=== PATIENT | female | born 1940 | race Caucasian/White ===

== ENCOUNTER 2022-06-15 18:06 | Inpatient (IN) | payer OTHER, BC ==
--- OUTSIDE RECORDS SUMMARY | 2022-06-15 18:10 | XMS REPORT | Clinical Summary ---
:1940 Author Organization [facility] MD [facility] Address [address] [place] [id number] Care Team Providers Name Role Phone Unavailable Primary Care Provider Unavailable Allergies Not on File Medications Not on file Active Problems Not on file Immunizations Name Administration Dates Next Due Pfizer SARS-CoV-2 Vaccination (Purple Cap) 07/04/2020, 11/2020 Social History Tobacco Use Types Packs/Day Years Used Date Smoking Tobacco: Never Assessed Sex Assigned at Date Recorded Not on file Last Filed Vital Signs Not on file Plan of Treatment Health Maintenance Due Date Last Done Comments COVID-19 Vaccination (3 - Booster for 08/29/2020 07/04/2020 , 06/13/2020 Pfizer series) Results Not on fileafter 06/15/2021 Insurance Payer Benefit Plan / Subscriber ID Effective Dates Phone Addre ss Type Group MEDICARE MEDICARE PART [id number] 2005-[place] [phone] TIARA Medicare A AND B t 2 SOLUTIONS [address] [facility] [place] [id number]
--- OUTSIDE RECORDS SUMMARY | 2022-06-15 18:14 | XMS REPORT | Continuity of Care Document ---
:1940 Author Organization [facility] t Address [address] [place] [place] [address] Care Team Providers Name Role Phone Carson Rudolph MD Primary Care Physician [id number] Attending Clinician Unavailable Bert Hall Attending Clinician Unavailable Noa Segura Attending Clinician Unavailable MAXIMINO CRUZ Attending Clinician Unavailable Maximino Cruz Attending Clinician MICKI MANJARREZ Attending Clinician Unavailable Micki Manjarrez Attending Clinician Brandon Saunders Attending Clinician Paco Tuttle Attending Clinician PACO TUTTLE Attending Clinician Unavailable Jennyfer Feliciano Attending Clinician JENNYFER FELICIANO Attending Clinician Unavailable Carson Rudolph MD Attending Clinician QUAN CABRERA Attending Clinician Unavailable Quan Cabrera Attending Clinician Ruthann Coronado Attending Clinician RUTHANN CORONADO Attending Clinician Unavailable CARSON RUDOLPH Attending Clinician Unavailable Carson Rudolph Attending Clinician [id number] Admitting Clinician Unavailable ANTHONYJENNIFFER IRELANDA Admitting Clinician Unavailable Anthony Maximino Admitting Clinician AHMED BRANDON Admitting Clinician Unavailable Ahzack Brandon Admitting Clinician TOMAS RIZVI BHAILALBH Admitting Clinician Unavailable Tomas Rizvi Bhailalgaleai Admitting Clinician Payers Payer Name Policy Type Policy Number Effective Date Expiration Date S [facility] [place] A [id number] 2004 2024 AND B 00:00:00 00:00:00 MCR MCR [id number] BCTI BCTI [id number] BCBS [id number] 2021 2022 Pulse 00:00:00 00:00:00 Problems Condition Condition Condition Status Onset Resolution Last Treating Co mments Source Name Details Category Date Date Treatment Clinician Date SUBACUTE SUBACUTE Diagnosis Active 2021-052022-02-17 Anastasia STROKE STROKE 0 21:55:00 l Active 00:00: Daniel 02/12/[address] [place] [address], [place] CVA CVA Diagnosis Active 2021-052022-03-15 Mem oria Active 0 21:55:00 l 02/12/2022 00:00: Quentin jack 00 [facility] STROKE STROKE Diagnosis Active 2021-052022-02-22 M emoria LIKE LIKE 0 21:52:00 l SYMPTOMS SYMPTOMS 00:00: Quentin jack Active 00 02/11/2022 [facility] FALL FALL Diagnosis Active 2021-052022-02-13 Mem oria Active 0 13:04:00 l 02/08/2022 00:00: Quentin jack 00 [facility] ACUTE CVA ACUTE CVA Diagnosis Active 2021-05-07 Memoria Active 05-07 21:58:00 l 05/07/2021 00:00: Quentin jack [address] ACUTE ACUTE Diagnosis Active 2021-05-18 Mem oria CEREBROVAS CEREBROVAS 05-07 21:46:00 l CULAR CULAR 00:00: Daniel ACCIDENT ACCIDENT 00 Active 05/07/2021 [facility] DIZZINESS, DIZZINESS Diagnosis Active 2021-06-20 Memoria VOMITING , VOMITING 05-07 13:44:00 l Active 00:00: Daniel 05/07/[address] [place] [address] CKD CKD Disease Active [facility] (chronic (chronic 3-12 [facility] kidney kidney 00:00: Medical disease) disease) 00 Center stage 3, stage 3, GFR 30-59 GFR 30-59 ml/min ml/min Lumbar Lumbar Disease Active Overview: [facility] radiculopa radiculopa 3-12 [facility] thy thy 00:00: g of this Medical note Center might be different from the original. PT for back pain, [place] [employer]. Cannot leave home due to care for , making her home bound. Impaired Impaired Disease [facility] glucose glucose 12[facility] tolerance tolerance 00:00: Medi elena 00 Center Paroxysmal Paroxysmal Disease Active Overview : [facility] atrial atrial 12-02 [facility] fibrillati fibrillati 00:00: g of this Medical on on note Center might be different from the original. followed by Dr. Connell, on Diltiazem , i questione d no anticoacu lation. Had holter for a week. Discussed stroke risk. Recommend ed Eliquis, over 60 Kg, creat less than 1.5Dr. Becki stopped and Chip placed. Echo done. No results known. Retinal Retinal Disease Active Overview: [facility] hole hole 11-29 [facility] 00:00: g of this Medical 00 note Center might be different from the original. Jaquan Schulte, dry eyes, cataracts done, retinal hole, she does not know which one. Vision decent. Regular visits. Dry eyes Mixed Mixed Disease Active Overview: [facility] hyperlipid hyperlipid 7-26 [facility] emia emia 00:00: g of this Medical 00 note Center might be different from the original. Crestor by Dr. Connell LDL 111 down to 47 SVT SVT Disease Active Overview: [facility] (supravent (supravent 4-23 [facility] ricular ricular 00:00: g of this Medic al tachycardi tachycardi 00 note Ce nter a) a) might be different from the original. Per Dr. Connell, after fall. 12/2016-- did PT 2 months. On Diltiazem [address] Urias recent sx. Unsteady Unsteady Disease Active Overview: [facility] gait gait 08-27 [facility] 00:00: g of this Medical 00 note Center might be different from the original. Encourage d walking every day. Walks 2-3 days a week. Not outside. FREQUENT FREQUENT Diagnosis Active 2016-052017-04-18 Memoria [place] FALL[place] -08 12:17:00 l UNSTEADY UNSTEADY 11:52: Quentin jack GAIT, GAIT, 00 R.29.6 R.29.6 Active 03/14/2017 [facility] FREQUENT FREQUENT Diagnosis Active 2017-02-09 Memoria [place] 9-11 15:30:00 l UNSTEADY UNSTEADY 08:00: Quentin jack GAIT, GAIT, 00 R29.6, R26 R29.6, R26 Active 01/15/2017 [facility] FREQUENT FREQUENT Diagnosis Active 2017-02-09 Memoria FALLS, FALLS, -17 16:25:00 l GAIT GAIT 08:00: Daniel INSTABILIT INSTABILIT 00 Y Y Active 12/21/2016 [facility] Migraine Migraine Disease Active Overview: [facility] without without 7- [facility] aura and aura and 00:00: g of this Med ical without without 00 note Center status status might be migrainosu migrainosu different s, not s, not from the intractabl intractabl original. e e Sometimes , less often, For years, better with Tylenol Systolic Systolic Disease Active Overview: [facility] murmur murmur 7-20 [facility] 00:00: g of this Medical 00 note Center might be different from the original. No mention in Dr. Connell's notes BMI BMI Disease Active [facility] 32.0-32.9, 32.0-32.9, 2-24 Ani kes adult adult 00:00: Medical 00 Center Venous Venous Disease Active [facility] insufficie insufficie 2-24 Ani kes ncy ncy 00:00: Medical 00 Center Lipedema Lipedema Disease Active Overview[facility] 2-23 [facility] 00:00: g of this Medical 00 note Center might be different from the original. Wraps, pump, sclerothe rapyDr. Sammy Sinclair 2017 improved, still lymphedem aDr. Reynold Landers, at Slow Slow Disease Active Overview: [facility] transit transit 2-23 [facility] constipati constipati 00:00: g of this Medical on on note Center might be different from the original. Controlle d with diet. Moderate Moderate Disease Active Overview: [facility] persistent persistent 8-22 [facility] asthma asthma 00:00: g of this Medical without without note Center complicati complicati might be on on different from the original. Dr. Oneill 05/2017 "best ever PFTs", last ER Visit 2002, Advair,BI D usually. Combivent -PRN-Stab le jun, 07/2019 rescue PRN. Family history: Mother Ideopathi c, brother, sister with pulmonary fibrosis. Maternal AuntMater nal Aunt pulm fibrosis. Patient with no signs. Family Family Disease Active Overview: [facility] history of history of 8-22 [facility] breast breast 00:00: g of this Medical cancer in cancer in 00 note Cent er female female might be different from the original. Great Aunt age 45 Maternal- -no Paternal history Family Family Disease Active Overview: [facility] history of history of 8-22 [facility] colon colon 00:00: g of this Medical cancer cancer 00 note Center might be different from the original. Maternal Uncle age 72, patient's last 2013? Felipe [place]-- never polyps Essential Essential Disease Active 2014-05 Overview: [facility] hypertensi hypertensi 2-03 [facility] on on 00:00: g of this Medical 00 note Center might be different from the original. Dr. Connell 2016, Tachycard ia, Abnormal ECGChest pain workup 1998NST, heart caths in distant past. Off Losartan with recallBPs at home never above 140. 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 Dr. Eric Osteopenia Osteopenia Disease Active Overview : [facility] of hip of hip 01-26 [facility] 00:00: g of this Medical 00 note Center might be different from the original. 2018Lumba r Spine: 0.4 Mean Femoral Neck: -1.Prev osteoporo sis. Improved. . 2.5 [id number] -1.9 femurStop Prolia. (does not tolerate fosamax)L ast Assessmen t & Plan: [facility] g of this note might be different from the original. 2. [id number] -1.9 Femur Depression Depression Disease Active Overview : [facility] 01-26 [facility] 00:00: g of this Medical 00 note Center might be different from the original. On Zoloft for 20 years. Depressio n and anxiety. Down at times, will go up On Librax and Xanax, Dr. Rodrigo Wang. 2018 Acquired Acquired Disease Active Overview: [facility] hypothyroi hypothyroi 01-26 [facility] dism dism 00:00: g of this Medical 00 note Center might be different from the original. Since age 12 Exacerbati Acute Problem Pulse on of exacerbati asthma on of asthma Paroxysmal Paroxysmal Problem P ulse atrial atrial fibrillati fibrillati on with on with rapid rapid ventricula ventricula r response r response Sinus node Tachy-paola Problem P ulse dysfunctio y syndrome n Fall Fall Problem Pulse Gastroesop Hiatal Problem Pulse hageal hernia reflux with GERD disease Anticoagul Anticoagul Problem P ulse ant ant therapy therapy Depression Depression Problem P ulse Muscle Muscle Problem 2017-08-23 Mario elvira weakness weakness 15:11:10 l (generaliz (generaliz He rmann ed) ed) 08/23/2017 [facility] Other Other Problem 2017-08-23 Memor ia abnormalit abnormalit 15:11:10 l ies of ies of Daniel gait and gait and mobility mobility 08/23/2017 [facility] Stiffness Stiffness Problem 2017-08-23 Memoria of of 15:11:10 l unspecifie unspecifie He ann d joint, d joint, not not elsewhere elsewhere classified classified 8 [facility] Cerebral Cerebral Diagnosis 2022-03-05 Memoria infarction infarction 22:58:38 l (disorder) (disorder) He rmann Diagnosis 03/05/2022 [facility] Atrial Atrial Problem Active 2022-03-05 Mem oria fibrillati fibrillati 22:58:38 l on on [place] (disorder) (disorder) Active Problem 03/05/2022 [facility], [place] Benign Benign Problem Active 2022-03-05 Mario elvira essential essential 22:58:38 l hypertensi hypertensi He ann on on (disorder) (disorder) Active Problem 03/05/2022 [facility], [facility] [place] Cerebrovas Cerebrova Problem Active 2022-03-05 Memoria cular scular 22:58:38 l accident accident Quentin n (disorder) (disorder) Active Problem 03/05/2022 [facility] [place] Dyslipidem Dyslipide Problem Active 2022-03-05 Memoria ia le 22:58:38 l (disorder) (disorder) He rmann Active Problem 03/05/2022 [facility], [facility] [place] History of History Problem Active 2022-03-05 Memoria - CVA of - CVA 22:58:38 l (context-d (context-d He rmann ependent ependent category) category) Active Problem 03/05/2022 [facility] Hyperlipid Hyperlipi Problem Active 2022-03-05 Memoria emia demia 22:58:38 l (disorder) (disorder) He rmann Active Problem 03/05/2022 [facility] [place] Hypertensi Hypertens Problem Active 2022-03-05 Memoria ve navi 22:58:38 l disorder, disorder, Herm scotty systemic systemic arterial arterial (disorder) (disorder) Active Problem 03/05/2022 [facility] Left Left Problem Active 2022-03-05 Memor ia hemiparesi hemiparesi 22:58:38 l aleena Sanchez (disorder) (disorder) Active Problem 03/05/2022 [facility] Lymphedema Lymphedem Problem Active 2022-03-05 Memoria (disorder) a 22:58:38 l (disorder) Quentin n Active Problem 03/05/2022 [facility], [facility] Obesity Obesity Problem Active 2022-03-05 Me moria (disorder) (disorder) 22:58:38 l Active [place] Problem 03/05/2022 [facility] CEREBRAL CEREBRAL Diagnosis Active 2022-03-15 Memoria INFARCTION INFARCTION 21:55:00 l , Daniel UNSPECIFIE UNSPECIFIE D D Active [facility], [facility] History of Past Illness Condition Condition Condition Status Onset Resolution Last Treating Co mments Source Name Details Category Date Date Treatment Clinician Date 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 2021-052022-02-10 2022-02-10 Memoria (current) (current) 0-05 23:58:26 23:58:26 l use of use of 18:48: Daniel anticoagul anticoagul 00 ants ants 02/08/2022 02/10/2022 [facility] Paroxysmal Paroxysma Problem 2021-052022-02-10 2022-02-10 Memoria atrial l atrial 0-05 23:58:26 23:58:26 l fibrillati fibrillati 18:48: He rmann on on 00 02/08/2022 02/10/2022 [facility] Unspecifie Unspecifi Problem 2021-052022-02-10 2022-02-10 Memoria d fall, ed fall, 0-05 23:58:26 23:58:26 l initial initial 18:47: Daniel encounter encounter 00 02/08/2022 02/10/2022 [facility] Unspecifie Unspecifi Problem 2021-052022-02-10 2022-02-10 Memoria d injury ed injury 0-05 23:58:26 23:58:26 l of head, of head, 18:47: Quentin jack initial initial 00 encounter encounter 02/08/2022 2 [facility] Repeated Repeated Problem 2017-08-23 2017-08-23 Memoria falls falls - 15:11:10 15:11:10 l 05/23/2017 05:35: Quentin jack 08/23/2017 21 [facility] Allergies, Adverse Reactions, Alerts Allergy Allergy Status Severity Reaction(s) Onset Inactive Treating Comm ents Source Name Type Date Date Clinician LISINOPR Allergy Active Med [facility] Lisinopr Propensi Active Moderate cough [facility] ty to 06[facility]03 [facility] adverse 00:00: Medical reaction 00 Center s IBUPROFE Allergy Active High Other [facility] N 5-16 [facility] 00[facility] 00 Center Ibuprofe Drug Active Other (See Ulcers in C [facility] n Allergy Comments) 16 stomach [facility] CODEINE Allergy Active High Other [facility] 3[facility]03 [facility] 00:[facility] 00 Center Codeine Drug Active Other (See Feel [facility] Allergy Comments) 07-07 nervous [facility] Center codeine< codeine< Active Memori a sup>1</s sup>1</s l up> up> [place] acetamin acetamin Active Moderate Mario elvira ophen-co ophen-co l deine<benjamin deine<benjamin Quentin n p>2</sup p>2</sup > > Family History Family Member Diagnosis Comments Start Date Stop Date Source Natural brother COPD [facility] Natural brother Heart disease [facility] Natural brother Hypertension [facility] Maternal grandmother Tremor [facility] Natural mother COPD [facility] Natural mother Heart disease [facility] Natural mother Tremor [facility] Natural sister COPD [facility] Natural sister Hypertension [facility] Social History Social Habit Start Date Stop Date Quantity Comments Source History of Pulse Tobacco Use Social History 2021-05-08 2021-05-08 [facility] 06:21:56 06:21:56 Alcohol intake 2020-06-07 2020-06-07 Current [facility] es 00:00:00 00:00:00 non-drinker of Medical Ce nter alcohol (finding) Tobacco use and 2013-07-07 2013-07-07 Never used [facility] exposure 00:00:00 00:00:00 [facility] Center Sex Assigned At [birth year] [facility] 00:00:00 00:00:00 Medical Center Smoking Status Start Date Stop Date Source Tobacco smoking status [facility] Medications Ordered Filled Start Stop Current Ordering Indication Dosage Frequency Signature Comments Components Source Medication Medication Date Date Medication? Clinician (SIG) Name Name levothyroxi 2021-05 Yes 88 Memori a ne 88 mcg 0-28 microgram l (0.088 mg) 19:15: = 1 tab, Her adan oral tablet 00 PO, Q630AM, # 7 tab, 0 Refill(s), Pharmacy: [facility], 160.02, cm, 02/14/22 20:23:00 CDT, Height, 74, kg, 02/14/22 20:23:00 CDT, Weight Metoprolol 2021-05 Yes 25 mg = 1 Me moria Succinate 0-28 tab, PO, l ER 25 mg 19:15: Daily, # 7 Her adan oral 00 tab, 0 tablet, Refill(s), extended Pharmacy: release [facility], 160.02, cm, 02/14/22 20:23:00 CDT, Height, 74, kg, 02/14/22 20:23:00 CDT, Weight pantoprazol 2021-05 Yes 40 mg = 1 M emoria e 40 mg 0-28 tab, PO, l oral 19:15: Daily, # 7 Daniel enteric 00 tab, 0 coated Refill(s), tablet Pharmacy: [facility], 160.02, cm, 02/14/22 20:23:00 CDT, Height, 74, kg, 02/14/22 20:23:00 CDT, Weight AMIODarone 2021-05 Yes 200 mg = 1 M emoria 200 mg oral 0-28 tab, PO, l tablet 19:14: BID, # 14 Quentin n 00 tab, 0 Refill(s), Pharmacy: [facility], 160.02, cm, 02/14/22 20:23:00 CDT, Height, 74, kg, 02/14/22 20:23:00 CDT, Weight apixaban 5 2021-05 Yes 5 mg = 1 Mem oria mg oral 0-28 tab, PO, l tablet 19:14: Q12H, # 14 Marilynn nn 00 tab, 0 Refill(s), Pharmacy: [facility], 160.02, cm, 02/14/22 20:23:00 CDT, Height, 74, kg, 02/14/22 20:23:00 CDT, Weight aspirin 81 2021-05 Yes 81 mg = 1 Me moria mg tablet, 0-28 tab, PO, l enteric 19:14: Daily, # 7 Herm scotty coated 00 tab, 0 Refill(s), Pharmacy: [facility], 160.02, cm, 02/14/22 20:23:00 CDT, Height, 74, kg, 02/14/22 20:23:00 CDT, Weight atorvastati 2021-05 Yes 40 mg = 1 M emoria n 40 mg 0-28 tab, PO, l oral tablet 19:14: Bedtime, # [place] 00 7 tab, 0 Refill(s), Pharmacy: [facility], 160.02, cm, 02/14/22 20:23:00 CDT, Height, 74, kg, 02/14/22 20:23:00 CDT, Weight potassium 2021-05 Yes 20 mEq = 1 Me moria chloride 20 0-28 tab, PO, l mEq oral 13:43: BID, PRN Marilynn nn tablet, 00 Abnormal extended Lab release Result, 0 (KCL) Refill(s) calcium 2021-05 Yes 500 mg = 1 Mario elvira carbonate 0-28 tab, CHEW, l 500 mg (200 13:42: TID, 0 Herm scotty mg 00 Refill(s) elemental calcium) oral tablet glycopyrrol 2021-05 Yes 1 mg = 1 Me moria ate 1 mg 0-28 tab, PO, l oral tablet 13:41: BID, 0 Herm scotty 00 Refill(s) sertraline 2021-05 Yes 100 mg = 1 M emoria 100 mg oral 0-28 tab, PO, l tablet 13:41: BID, 0 Daniel 00 Refill(s) digoxin 250 2021-05 Yes Notes: Mario elvira mcg (0.25 0-18 Take on an l mg) oral 14:01: Empty [place] tablet 00 Stomach (Same as: Lanoxin) aspirin 81 2021-05 Yes 81 mg = 1 Me moria mg tablet, 0-11 tab, PO, l enteric 21:08: Daily, 0 Quentin n coated 00 Refill(s) atorvastati 2021-05 Yes 40 mg = 1 M emoria n 40 mg 0-11 tab, PO, l oral tablet 21:08: Bedtime, 0 [place] 00 Refill(s) apixaban 5 2021-05 Yes 5 mg = 1 Mem oria mg oral 0-11 tab, PO, l tablet 21:07: Q12H, 0 Daniel 00 Refill(s) atorvastati 2021-05 Yes Notes: Mario elvira n 0-10 (Same as: l 02:00: Lipitor) Daniel 00 Saline 2021-05 Yes Notes: Memoria Flush 0.9% 0-10 (Same as: l 02:00: BD [place] 00 Posiflush) Protonix 2021-05 Yes Notes: For Mem oria 0-09 IV push l 20:57: reconstitu [place] 00 te with 10 ml 0.9% sodium chloride and push over 2 minutes. (Same as: Protonix) Saline 2021-05 Yes Notes: Memoria Flush 0.9% 0-09 (Same as: l 20:50: BD Daniel 00 Posiflush) normal 2021-05 No 500 mL, Memoria saline 0.9% 0-09 500 ml/hr, l (Bolus) IV 20:16: Infuse Marilynn nn 00 Over: 1 hr, Route: IV, 500, Drug form: INJ, ONCE, Priority: NOW, Dosing Weight 73.7 kg, Start date: 02/12/22 15:16:00 CDT, Stop date: 02/12/22 15:16:00 CDT, 0 normal 2021-05 Yes 1,000 mL, Memori a saline 0.9% 0-09 Rate: 75 l IV 1,000 mL 20:16: ml/hr, Herm scotty 00 Infuse over: 13.3 hr, Route: IV, Dosing Weight 73.7 kg, Total Volume: 1,000, Priority: NOW, Start date: 02/12/22 15:16:00 CDT, Duration: 30 day, Stop date: 03/14/22 15:15:00 BEACH ATTENDANT, BSA: 1.83 m2, 0 aspirin 300 2021-05 No Notes: Mario elvira mg rectal 0-09 Refrigerat l suppository 20:16: e. Quentin n 00 enoxaparin 2021-05 Yes Notes: Memor ia 0-09 (Same as: l 20:00: Lovenox) Daniel 00 Dextrose 2021-05 Yes 12.5 gm, Memor ia 50% Syringe 0-09 25 mL, l (D50W) 19:25: Route: IVP, Drug Form: INJ, Dosing Weight 73.7, kg, PRN, PRN Blood Glucose Results, Start date: 02/12/22 14:25:00 CDT, Duration: 30 day, Stop date: 03/14/22 13:24:00 BEACH ATTENDANT, 0 glucagon 2021-05 Yes 1 mg, Memoria 0-09 Route: IM, l 19:25: Drug form: Daniel 00 PDR/INJ, PRN, Dosing Weight 73.7, kg, PRN Blood Glucose Results, Start date: 02/12/22 14:25:00 CDT, Duration: 30 day, Stop date: 03/14/22 13:24:00 BEACH ATTENDANT, 0 docusate 2021-05 Yes Notes: Memoria 0-09 (Same as: l 19:25: Colace) (Do Not Crush) ondansetron 2021-05 Yes Notes: Mario elvira 0-09 (Same as: l 19:25: Zofran) MEDICATION WASTE Product Size: 4 mg Product Wasted: ___ mg LORazepam LORazepam 2021-05 No BID LORazepam 0.5 MG 0.5 MG 0-07 0.5 MG 00:00: 00 LORazepam LORazepam 2021-05 No BID LORazepam 0.5 MG 0.5 MG 0-07 0.5 MG 00:00: 00 Dexilant No 60 mg, Memoria 1-03 Route: PO, l 15:00: Daily, Dosing Weight 80.455, kg, Start date: 05/09/21 9:00:00 BEACH ATTENDANT, Duration: 30 day, Stop date: 06/07/21 9:00:00 BEACH ATTENDANT Diltiazem No Notes: Memori a Hydrochlori 1-03 (Same l de SR 15:00: as:Cardize Quentin n 00 m CD) Before meals. DO NOT CRUSH. metoprolol No Notes: Memor ia tartrate 1-03 (Same as: l 15:00: Lopressor) olmesartan No Notes: Memor ia 1-03 (Same as: l 15:00: Benicar) Protonix No Notes: Memoria 1-03 Tablet l 13:30: should not be chewed or crushed. (Same as: Protonix) Thyroxine No Notes: Memori a 1-03 Take 1 l 12:00: hour before or 2 hours after meal; Enteral feeds may interefere with the absorption of this medication . (Same as:Synthro id) Sertraline No Notes: Memor ia 1-03 (Same as: l 03:00: Zoloft) atorvastati No Notes: Mario elvira n -03 (Same as: l 03:00: Lipitor) Pulmicort No Notes: Memori a Respules -03 (Same As: l 02:00: Pulmicort) Advair No 1 puff, Memoria Diskus 250 05-08 Route: l mcg-50 mcg 23:00: INHALATION H ermann inhalation , Drug powder Form: AERO, Dosing Weight 80.455, kg, BID, Start date: 05/08/21 17:00:00 BEACH ATTENDANT, Duration: 30 day, Stop date: 06/07/21 9:00:00 BEACH ATTENDANT Albuterol No Notes: SEE Me moria -02 RT l 21:00: DOCUMENTAT ION (Same as: Proventil) Aspirin 81 Yes 81 mg = 1 Me moria MG Chewable 1-02 tab, PO, l Tablet 19:15: Daily, # Daniel 00 30 tab, 0 Refill(s), Pharmacy: [id number], 160.02, cm, 05/08/21 0:09:00 BEACH ATTENDANT, Height, 80.455, kg, 05/08/21 0:09:00 BEACH ATTENDANT, Weight Ciprofloxac Yes 500 mg = 1 Memoria in 500 MG 1-02 tab, PO, l Oral Tablet 19:14: Q12H, for H ermann [Cipro] 00 UTI, X 3 day, # 6 tab, 0 Refill(s), Pharmacy: [id number], 160.02, cm, 05/08/21 0:09:00 BEACH ATTENDANT, Height, 80.455, kg, 05/08/21 0:09:00 BEACH ATTENDANT, Weight atorvastati Yes 80 mg = 1 M emoria n 80 MG 1-02 tab, PO, l Oral Tablet 19:13: Bedtime, # [place] [Lipitor] 00 30 tab, 0 Refill(s), Pharmacy: [id number], 160.02, cm, 05/08/21 0:09:00 BEACH ATTENDANT, Height, 80.455, kg, 05/08/21 0:09:00 BEACH ATTENDANT, Weight Ciprofloxac 0 No 500 mg = 1 Memoria in 500 MG 1-02 tab, PO, l Oral Tablet 18:57: Q12H, for H ermann [Cipro] 00 UTI, X 3 day, # 6 tab, 0 Refill(s) pantoprazol No 40 mg = 1 M emoria e 40 mg 1-02 tab, PO, l oral 18:17: Before [place] enteric 00 Breakfast, coated # 30 tab, tablet 0 Refill(s) atorvastati No 80 mg = 1 M emoria n 80 MG 1-02 tab, PO, l Oral Tablet 18:17: Bedtime, # [place] [Lipitor] 00 30 tab, 0 Refill(s) Aspirin 81 No 81 mg = 1 Me moria MG Chewable 1-02 tab, PO, l Tablet 18:16: Daily, # [place] 00 30 tab, 0 Refill(s) Advair Yes 1 puff, Memoria Diskus 250 02 INHALATION l mcg-50 mcg 15:50: , BID, # 1 H ermann inhalation 00 ea, 3 powder Refill(s) sertraline Yes 100 mg = 1 M emoria 100 mg oral 05-08 tab, PO, l tablet 15:49: BID, 0 [place] 00 Refill(s) Aspirin 81 No Notes: Memor ia MG Chewable 05-08 Take with l Tablet 15:00: food. Daniel 00 Famotidine No Notes: Memor ia 05-08 (Same as: l 15:00: Pepcid) Saline No Notes: [facility] Flush 0.9% 05-08 (Same as: l 15:00: BD Posiflush) Enoxaparin No 40 mg, Memor ia 05-08 Route: l 07:00: SUB-Q, [id number], Dosing Weight 80.455, kg, Start date: 05/08/21 1:00:00 BEACH ATTENDANT, Duration: 30 day, Stop date: 06/06/21 1:00:00 BEACH ATTENDANT Omnipaque No Notes: Memori a 350 05-08 (same l injectable 07:00: as:Omnipaq H ermann solution 00 ue 350). WASTE: F/P - Black; E - [employer] Trash Bin rosuvastati No 10 mg = 1 M emoria n 10 MG 05-08 cap, PO, l Oral 06:44: Daily, 0 [place] Capsule 00 Refill(s) Advair Yes INHALATION Mem[facility] ia Diskus 250 02 , BID, 0 l mcg-50 mcg 06:44: Refill(s) He rmann inhalation 00 powder Eliquis No Notes: Memoria 05-08 Same as: l 06:43: Eliquis [place] 00 glycopyrrol Yes 1 mg = 1 Me moria ate 1 mg 05-08 tab, PO, l oral tablet 06:43: BID, 0 Herm scotty 00 Refill(s) Acetaminoph No Notes: Do M emoria en 05-08 not exceed l 06:42: 4 gm/day. 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, PRN Other -See Comment, 0 DilTIAZem Yes 360 mg = 1 Me moria (Eqv-Cardiz 05-08 cap, PO, l em CD) 360 06:41: Daily, 0 Her adan mg/24 hours 00 Refill(s) oral capsule, extended release DilTIAZem Yes 360 mg = 1 Me moria (Eqv-Cardiz 05-08 cap, PO, l em CD) 360 06:41: Daily, 0 Her adan mg/24 hours 00 Refill(s) oral capsule, extended release metoprolol Yes 25 mg = 1 Me moria tartrate 25 05-08 tab, PO, l mg oral 06:40: Daily, 0 Quentin n tablet 00 Refill(s) olmesartan Yes 5 mg = 1 Mem oria 5 mg oral 05-08 tab, PO, l tablet 06:39: Daily, 0 [place] 00 Refill(s) Dexilant Yes 60 mg, PO, Mem oria 05-08 Daily, 0 l 06:38: Refill(s) [place] Dexilant Yes 60 mg, PO, Mem oria 05-08 Daily, 0 l 06:38: Refill(s) Daniel levothyroxi Yes 88 Memori a ne 88 mcg 1-02 microgram l (0.088 mg) 06:37: = 1 cap, Her adan oral 00 PO, Daily, capsule # 30 cap, 3 Refill(s) Aspirin No Notes: Memoria 05-07 Take with l 19:10: food. Zofran No Notes: [facility]oria 05-07 (Same as: l 17:38: Zofran) MEDICATION WASTE Product Size: 4 mg Product Wasted: ___ mg Saline No Notes: [facility] Flush 0.9% 05-07 Same as: l 16:59: BD Posiflush Sterile sertraline Yes 200mg QD Take [address] [facility] (ZOLOFT) 6-14 tablets [facility] 100 MG 00:00: (200 mg Medical tablet 00 total) by Center mouth daily. sertraline Yes 200mg QD Take [address] [facility] (ZOLOFT) 6-14 tablets [facility] 100 MG 00:00: (200 mg Medical tablet 00 total) by Center mouth daily. sertraline Yes 200mg QD Take [address] [facility] (ZOLOFT) 6-14 tablets [facility] 100 MG 00:00: (200 mg Medical tablet 00 total) by Center mouth daily. levothyroxi Yes TAKE [address] [facility] ne 2-11 TABLET BY [facility] (SYNTHROID, 00:00: MOUTH Medic al LEVOTHROID) 00 DAILY Center 112 MCG tablet levothyroxi Yes TAKE [address] [facility] ne 2-11 TABLET BY [facility] (SYNTHROID, 00:00: MOUTH Medic al LEVOTHROID) 00 DAILY Center 112 MCG tablet levothyroxi Yes TAKE [address] [facility] ne 2-11 TABLET BY [facility] (SYNTHROID, 00:00: MOUTH Medic al LEVOTHROID) 00 DAILY Center 112 MCG tablet fluticasone Yes 1{puff} Q.5D Inhale [address] [facility] -salmeterol 2-01 puff by [facility] (ADVAIR) 13:46: mouth via Medi elena 250-50 46 inhaler 2 Center mcg/dose (two) diskus times inhaler daily. dexlansopra Yes 60mg QD Take [address] [facility] zole 60 mg 2-01 by mouth [facility] capsule 13:46: daily. [place] [address] Center albuterol-i Yes 2{puff} Inhale [address] [facility] pratropium 2-01 puffs by [facility] (COMBIVENT) 13:46: mouth via edical 18 46 inhaler Center mcg/actuati every 6 on inhaler (six) hours as needed for Wheezing. LORazepam Yes .5mg Q.5D Take 0.[address] [facility] (ATIVAN) 2-01 mg by [facility] 0.5 MG 13:46: mouth 2 Medical tablet 46 (two) Center times daily. glycopyrrol Yes 1mg Q.5D Take [address] ate 2-01 by mouth 2 [facility] (ROBINUL) 1 13:46: (two) Medic al mg tablet 46 times Center daily. cycloSPORIN Yes 1[drp] Q.5D [address] [facility] E 2-01 (two) [facility] (RESTASIS) 13:46: times Medica l 0.05 % 46 daily. Center ophthalmic emulsion diltiazem Yes 1{capsu QD Take [address] [facility] (CARDIZEM 2-01 le} capsule by Luke [facility] CD) 360 MG 13:46: mouth Medica l 24 hr 46 daily. Center capsule fluticasone Yes 1{puff} Q.5D Inhale [address] [facility] -salmeterol 2-01 puff by [facility] (ADVAIR) 13:46: mouth via [facility] 250-50 46 inhaler 2 Center mcg/dose (two) diskus times inhaler daily. dexlansopra Yes 60mg QD Take [address] [facility] zole 60 mg 2-01 by mouth [facility] capsule 13:46: daily. [place] [address] Center albuterol-i Yes 2{puff} Inhale [address] [facility] pratropium 2-01 puffs by [facility] (COMBIVENT) 13:46: mouth via edical 18 46 inhaler Center mcg/actuati every 6 on inhaler (six) hours as needed for Wheezing. LORazepam Yes .5mg Q.5D Take 0.[address] [facility] (ATIVAN) 2-01 mg by [facility] 0.5 MG 13:46: mouth 2 Medical tablet 46 (two) Center times daily. glycopyrrol Yes 1mg Q.5D Take [address] ate 2-01 by mouth 2 [facility] (ROBINUL) 1 13:46: (two) Medic al mg tablet 46 times Center daily. cycloSPORIN 0 Yes 1[drp] Q.5D [address] [facility] E 2-01 (two) [facility] (RESTASIS) 13:46: times Medica l 0.05 % 46 daily. Center ophthalmic emulsion diltiazem Yes 1{capsu QD Take [address] [facility] (CARDIZEM 2-01 le} capsule by Luke s CD) 360 MG 13:46: mouth Medica l 24 hr 46 daily. Center capsule fluticasone Yes 1{puff} Q.5D Inhale [address] [facility] -salmeterol 2-01 puff by [facility] (ADVAIR) 13:46: mouth via [facility] elena 250-50 46 inhaler 2 Center mcg/dose (two) diskus times inhaler daily. dexlansopra Yes 60mg QD Take [address] [facility] zole 60 mg 2-01 by mouth [facility] capsule 13:46: daily. Medical 46 Center albuterol-i Yes 2{puff} Inhale [address] [facility] pratropium 2-01 puffs by [facility] (COMBIVENT) 13:46: mouth via edical 18-103 46 inhaler Center mcg/actuati every 6 on inhaler (six) hours as needed for Wheezing. LORazepam 0 Yes .5mg Q.5D Take 0.[address] [facility] (ATIVAN) 2-01 mg by [facility] 0.5 MG 13:46: mouth 2 Medical tablet 46 (two) Center times daily. glycopyrrol 0 Yes 1mg Q.5D Take [address] ate 2-01 by mouth 2 [facility] (ROBINUL) 1 13:46: (two) Medic al mg tablet 46 times Center daily. cycloSPORIN 0 Yes 1[drp] Q.5D [address] [facility] E 2-01 (two) [facility] (RESTASIS) 13:46: times Medica l 0.05 % 46 daily. Center ophthalmic emulsion diltiazem Yes 1{capsu QD Take [address] [facility] (CARDIZEM 2-01 le} capsule by [facility] flood CD) 360 MG 13:46: mouth Medica l 24 hr 46 daily. [place] capsule olmesartan Yes TAKE 1 [facility] (BENICAR) 5 1-22 TABLET BY [facility] MG tablet 00:00: MOUTH Medical 00 DAILY [facility] olmesartan Yes TAKE 1 [facility] (BENICAR) 5 1-22 TABLET BY [facility] MG tablet 00:00: MOUTH Medical 00 DAILY [facility] olmesartan Yes TAKE 1 [facility] (BENICAR) 5 1-22 TABLET BY [facility] es MG tablet 00:00: MOUTH Medical 00 DAILY [facility] metoprolol Yes 25mg QD Take [address] succinate 2-24 by mouth [facility] (TOPROL-XL) 00:00: daily. Medi elena 25 MG 24 hr 00 Center tablet metoprolol 0 Yes 25mg QD Take [address] succinate 2-24 by mouth [facility] (TOPROL-XL) 00:00: daily. Medi elena 25 MG 24 hr 00 Center tablet metoprolol 0 Yes 25mg QD Take [address] succinate 2-24 by mouth [facility] (TOPROL-XL) 00:00: daily. Medi elena 25 MG 24 hr 00 Center tablet rosuvastati Yes 10mg QD Take [address] [facility] n (CRESTOR) 6-26 by mouth Luke s 10 MG 00:00: daily. Medical tablet 00 [place] rosuvastati Yes 10mg QD Take [address] [facility] n (CRESTOR) 6-26 by mouth Luke s 10 MG 00:00: daily. Medical tablet 00 [facility] rosuvastati Yes 10mg QD Take [address] [facility] n (CRESTOR) 6-26 by mouth Luke s 10 MG 00:00: daily. Medical tablet 00 [facility] erythromyci Yes APPLY THIN [facility] (ROMYCIN) 6-13 RIBBON TO [facility]a es 5 mg/gram 00:00: INTO BOTH Med ical (0.5 %) 00 EYES AT [facility] ophthalmic BEDTIME ointment erythromyci Yes APPLY THIN [facility] (ROMYCIN) 6-13 RIBBON TO [facility]a es 5 mg/gram 00:00: INTO BOTH Med ical (0.5 %) 00 EYES AT Center ophthalmic BEDTIME ointment erythromyci 2018-0 [address]IN [facility] (ROMYCIN) 6-13 RIBBON TO [facility] es 5 mg/gram 00:00: INTO BOTH Med ical (0.5 %) 00 EYES AT Center ophthalmic BEDTIME ointment Diltiazem Diltiazem No Diltiazem CD CD CD Metoprolol Metoprolol No 1{table QD Metoprolol Succinate Succinate t} Succinate ER 50 MG ER 50 MG ER 50 MG Inhaler Inhaler No Inhaler Decongestan Decongestan Decongesta t t nt Sertraline Sertraline No 1{table BID Sertraline HCl 100 MG HCl 100 MG t} HCl 100 MG Dexilant 60 Dexilant 60 No 1{capsu QD Dexilant MG MG le} 60 MG Eliquis 2.5 Eliquis 2.5 No Eliquis MG MG 2.5 MG Rosuvastati Rosuvastati No Rosuvastat n Calcium n Calcium in Calcium 10 MG 10 MG 10 MG Glycopyrrol Glycopyrrol No 1{table BID Glycopyrro ate 1 MG ate 1 MG t} late 1 MG Olmesartan Olmesartan No 1{table QD Olmesartan Medoxomil 5 Medoxomil 5 t} Medoxomil MG MG 5 MG Levothyroxi Levothyroxi No Levothyrox ne Sodium ne Sodium ine Sodium 88 MCG 88 MCG 88 MCG Advair Advair No 1{puff} BID Advair Diskus Diskus Diskus 250-50 250-50 250-50 MCG/DOSE MCG/DOSE MCG/DOSE dilTIAZem dilTIAZem No 1{capsu QD dilTIAZem HCl ER HCl ER le} HCl ER Coated Coated Coated Beads 360 Beads 360 Beads 360 MG MG MG Diltiazem Diltiazem No Diltiazem CD CD CD Metoprolol Metoprolol No 1{table QD Metoprolol Succinate Succinate t} Succinate ER 50 MG ER 50 MG ER 50 MG Inhaler Inhaler No Inhaler Decongestan Decongestan Decongesta t t nt Sertraline Sertraline No 1{table BID Sertraline HCl 100 MG HCl 100 MG t} HCl 100 MG Dexilant 60 Dexilant 60 No 1{capsu QD Dexilant MG MG le} 60 MG Eliquis 2.5 Eliquis 2.5 No Eliquis MG MG 2.5 MG Rosuvastati Rosuvastati No Rosuvastat n Calcium n Calcium in Calcium 10 MG 10 MG 10 MG Glycopyrrol Glycopyrrol No 1{table BID Glycopyrro ate 1 MG ate 1 MG t} late 1 MG Olmesartan Olmesartan No 1{table QD Olmesartan Medoxomil 5 Medoxomil 5 t} Medoxomil MG MG 5 MG Levothyroxi Levothyroxi No Levothyrox ne Sodium ne Sodium ine Sodium 88 MCG 88 MCG 88 MCG Advair Advair No 1{puff} BID Advair Diskus Diskus Diskus 250-50 250-50 250-50 MCG/DOSE MCG/DOSE MCG/DOSE dilTIAZem dilTIAZem No 1{capsu QD dilTIAZem HCl ER HCl ER le} HCl ER Coated Coated Coated Beads 360 Beads 360 Beads 360 MG MG MG Immunizations Ordered Immunization Filled Immunization Date Status Commen ts Source Name Name [facility] SARS-CoV-2 2020-07-04 Completed Univer sity of Vaccination (Purple 00:00:00 Geni MCCRAY Cap) [facility] SARS-CoV-2 2020-07-04 Completed Univer sity of Vaccination (Purple 00:00:00 Geni MCCRAY Cap) [facility] SARS-CoV-2 2020-07-04 Completed Univer sity of Vaccination (Purple 00:00:00 Geni MCCRAY Cap) [facility] SARS-CoV-2 2020-07-04 Completed Univer sity of Vaccination (Purple 00:00:00 Geni MCCRAY Cap) [facility] SARS-CoV-2 2020-06-13 Completed Univer sity of Vaccination (Purple 00:00:00 Geni MCCRAY Cap) [facility] SARS-CoV-2 2020-06-13 Completed Univer sity of Vaccination (Purple 00:00:00 Geni MCCRAY Cap) [facility] SARS-CoV-2 2020-06-13 Completed Univer sity of Vaccination (Purple 00:00:00 Geni MCCRAY Cap) [facility] SARS-CoV-2 2020-06-13 Completed Univer sity of Vaccination (Purple 00:00:00 Geni MCCRAY Cap) [facility] INFLUENZA QIV 2020-02-[address] [facility] ADJUVANTED PF IM 00:00:00 [facility] ([id number]) INFLUENZA QIV 2020-02-[address] [facility] ADJUVANTED PF IM 00:00:00 [facility] ([id number]) INFLUENZA QIV 2020-02-[address] [facility] ADJUVANTED PF IM 00:00:00 [facility] ([id number]) Influenza, High Dose 2019-03-[address] [facility] Seasonal 00:00:00 [facility] Influenza, High Dose 2019-03-[address] [facility] Seasonal 00:00:00 [facility] Influenza, High Dose 2019-03-[address] [facility] Seasonal 00:00:00 [facility] Pneumococcal 2015-05-[address] [facility] Conjugate (Prevnar) 00:00:00 [facility] 13-[facility]ent Pneumococcal 2015-05-[address] [facility] Conjugate (Prevnar) 00:00:00 [facility] Pneumococcal 2015-05-[address] [facility] Conjugate (Prevnar) 00:00:00 [facility] Influenza TIV (IM) 2014-02-[address] [facility] 00:00:00 [facility] Influenza TIV (IM) 2014-02-[address] [facility] 00:00:00 [facility] Influenza TIV (IM) 2014-02-[address] [facility] 00:00:00 [facility] Pneumococcal 2012-05-[address] [facility] Polysaccharide 00:00:00 [facility] Ce [facility]ter (Pneumovax) Pneumococcal 2012-05-[address] [facility] Polysaccharide 00:00:00 Medical Ce nter (Pneumovax) Pneumococcal 2012-05-[address] [facility] Polysaccharide 00:00:00 Medical Ce nter (Pneumovax) Vital Signs Vital Name Observation Time Observation Value Comments Source temperature 2022-02-10 13:15:00 97.5 [degF] Pulse weight 2022-02-10 13:15:00 140.1 [lb_av] Pulse height 2022-02-10 13:15:00 63 [in_i] Pulse heart rate 2022-02-10 13:15:00 62 /min Pulse oximetry 2022-02-10 13:15:00 96 % Pulse bmi 2022-02-10 13:15:00 24.81 kg/m2 Pulse blood pressure 2022-02-10 13:15:00 135 mm[Hg] Pulse systolic blood pressure 2022-02-10 13:15:00 65 mm[Hg] Pulse diastolic HEIGHT 2020-06-07 11:45:00 160 cm WEIGHT 2020-06-07 11:45:00 80.831 kg Heart Rate 2022-03-03 12:14:42 [facility] Systolic (mm Hg) 2022-03-03 12:14:33 Mario rial Daniel Diastolic (mm Hg) 2022-03-03 12:14:33 Mem orial Daniel Temperature Oral (F) 2022-03-03 12:14:05 97.6 F [facility] [place] Temperature Oral (F) 2022-03-02 12:58:33 97.4 F [facility] [place] Height 2022-02-15 01:23:00 5 [ft_i] [facility] [place] Weight 2022-02-15 01:23:00 [facility] [place] BMI Calculated 2022-02-15 01:23:00 [facility] al [place] Heart Rate 2022-02-14 20:31:50 [facility] [place] Systolic (mm Hg) 2022-02-14 20:31:46 Mario rial [place] Diastolic (mm Hg) 2022-02-14 20:31:46 Mem orial [place] Temperature Oral (F) 2022-02-14 20:31:39 98.8 F [facility] [place] Heart Rate 2022-02-13 10:16:21 [facility] [place] Systolic (mm Hg) 2022-02-13 10:16:13 Mario rial [place] Diastolic (mm Hg) 2022-02-13 10:16:13 Mem orial [place] Heart Rate 2022-02-13 10:16:13 [facility] [place] Temperature Oral (F) 2022-02-13 10:15:27 98.1 F [facility] [place] Heart Rate 2022-02-13 05:18:18 [facility] Systolic (mm Hg) 2022-02-13 05:18:13 Mario rial [place] Diastolic (mm Hg) 2022-02-13 05:18:13 Mem orial Daniel Temperature Oral (F) 2022-02-13 05:18:00 97.9 F [facility] [place] Respitory Rate 2022-02-13 05:18:00 [facility] [place] Temperature Oral (F) 2022-02-13 05:17:27 97.9 F [facility] Systolic (mm Hg) 2022-02-13 02:05:17 Mario rial Daniel Diastolic (mm Hg) 2022-02-13 02:05:17 Mem orial Daniel Respitory Rate 2022-02-13 02:05:00 [facility] [place] Respitory Rate 2022-02-12 21:50:19 [facility] al [facility] Height 2022-02-12 18:10:00 5 [ft_i] [facility] Weight 2022-02-12 18:10:00 [facility] [place] BMI Calculated 2022-02-12 18:10:00 [facility] al [facility] Respitory Rate 2022-02-12 15:57:00 [facility] Systolic (mm Hg) 2022-02-12 15:57:00 Mario rial [facility] Diastolic (mm Hg) 2022-02-12 15:57:00 Mem orial [place] Temperature Oral (F) 2022-02-12 15:57:00 97.5 F [facility] Respitory Rate 2022-02-12 14:12:00 [facility]ori al [facility] Systolic (mm Hg) 2022-02-12 14:12:00 Mario rial [facility] Diastolic (mm Hg) 2022-02-12 14:12:00 Mem orial Daniel Weight 2022-02-12 12:27:00 [facility] [place] Systolic (mm Hg) 2022-02-12 12:27:00 Mario rial [facility] Diastolic (mm Hg) 2022-02-12 12:27:00 Mem orial [place] Heart Rate 2022-02-12 12:27:00 [facility] [place] Respitory Rate 2022-02-12 12:27:00 [facility] [place] Temperature Oral (F) 2022-02-12 12:27:00 97.6 F [facility] Temperature Oral (F) 2022-02-08 20:53:00 98.3 F [facility] Heart Rate 2022-02-08 20:53:00 [facility] Respitory Rate 2022-02-08 20:53:00 [facility] [place] Systolic (mm Hg) 2022-02-08 20:53:00 Mario rial [facility] Diastolic (mm Hg) 2022-02-08 20:53:00 Mem orial [place] Temperature Oral (F) 2022-02-08 18:00:00 98.2 F [facility] [place] Heart Rate 2022-02-08 18:00:00 [facility] [place] Systolic (mm Hg) 2022-02-08 18:00:00 Mario rial Daniel Diastolic (mm Hg) 2022-02-08 18:00:00 Mem orial [place] Height 2022-02-08 16:06:00 160.02 cm [facility] [place] BMI Calculated 2022-02-08 16:06:00 [facility] [place] Weight 2022-02-08 16:06:00 [facility] Systolic (mm Hg) 2022-02-08 16:06:00 Mario rial [facility] Diastolic (mm Hg) 2022-02-08 16:06:00 Mem orial Daniel Heart Rate 2022-02-08 16:06:00 [facility] [place] Respitory Rate 2022-02-08 16:06:00 [facility] [place] Temperature Oral (F) 2022-02-08 16:06:00 98.2 F [facility] Heart Rate 2021-05-08 17:54:01 [facility] Systolic (mm Hg) 2021-05-08 17:53:19 Mario rial [place] Diastolic (mm Hg) 2021-05-08 17:53:19 Mem orial Daniel Heart Rate 2021-05-08 17:53:19 [facility] [place] Heart Rate 2021-05-08 13:22:39 [facility] Respitory Rate 2021-05-08 13:22:39 Mem[facility] al [facility] Systolic (mm Hg) 2021-05-08 13:22:05 Mario rial [place] Diastolic (mm Hg) 2021-05-08 13:22:05 Mem orial [place] Temperature Oral (F) 2021-05-08 13:21:52 98.1 F [facility] [place] Systolic (mm Hg) 2021-05-08 10:37:12 Mario rial [place] Diastolic (mm Hg) 2021-05-08 10:37:12 Mem orial [place] Temperature Oral (F) 2021-05-08 10:36:31 97.7 F [facility] [place] Temperature Oral (F) 2021-05-08 06:15:00 98.4 F [facility] [place] Height 2021-05-08 06:09:00 160.02 cm [facility] [place] Weight 2021-05-08 06:09:00 [facility] BMI Calculated 2021-05-08 06:09:00 Mem[facility] al [facility] Height 2021-05-07 16:57:00 160.02 cm [facility] BMI Calculated 2021-05-07 16:57:00 [facility] [place] Weight 2021-05-07 16:57:00 [facility] [place] Systolic (mm Hg) 2021-05-07 16:57:00 Mario rial [place] Diastolic (mm Hg) 2021-05-07 16:57:00 Mem orial [place] Heart Rate 2021-05-07 16:57:00 [facility] [place] Respitory Rate 2021-05-07 16:57:00 [facility] [place] Temperature Oral (F) 2021-05-07 16:57:00 98.9 F [facility] Procedures Procedure Date / Time Performing Clinician Source Performed Catheterization of vein [facility] [place] Hysterectomy [facility] 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 Abdominal wall hernia [facility] H ermann procedure Plan of Care Planned Activity Planned Date Details Comments Source Future Scheduled 2022-05-[address] [facility] [facility] Test 00:00:00 [code = FALLS RISK Medical C enter SCREENING] Future Scheduled 2022-05-07 [facility] [address] [facility] Test 00:00:00 [code = FALLS RISK Medical C enter SCREENING] Future Scheduled 2022-03-04 COVID-19 Vaccination [facility] [place] [facility] 12:55:12 (3 - Booster for MD Max [facility] Pfizer series) [code Center = COVID-19 Vaccination (3 - Booster for Pfizer series)] Future Scheduled 2022-03-04 COVID-19 Vaccination [facility] [place] Test 12:55:12 (3 - Booster for MD Max Cancer Pfizer series) [code Center = COVID-19 Vaccination (3 - Booster for Pfizer series)] Future Scheduled 2022-03-04 COVID-19 Vaccination [facility] [place] Test 12:55:12 (3 - Booster for MD Max Cancer Pfizer series) [code Center = COVID-19 Vaccination (3 - Booster for Pfizer series)] Future Scheduled 2022-01-[address] [facility] Test 00:00:00 (#1) [code = Medical Center INFLUENZA VACCINE (#1)] Future Scheduled 2022-01-[address] [facility] Test 00:00:00 (#1) [code = Medical Center INFLUENZA VACCINE (#1)] Future Scheduled 2022-01-[address] [facility] Test 00:00:00 (#1) [code = Medical Center INFLUENZA VACCINE (#1)] Future Scheduled 2021-06-[address] [facility] Test 00:00:00 WELLNESS (YEAR 3 +) Medical Center [code = MEDICARE SUBSEQUENT WELLNESS (YEAR 3 +)] Future Scheduled 2021-06-[address] [facility] Test 00:00:00 Counseling and Medical Cente r Screening (12+) [code = Tobacco Cessation Counseling and Screening (12+)] Future Scheduled 2021-06-[address] [facility] Test 00:00:00 WELLNESS (YEAR 3 +) Medical Center [code = MEDICARE SUBSEQUENT WELLNESS (YEAR 3 +)] Future Scheduled 2021-06-[address] [facility] Test 00:00:00 Counseling and Medical Cente r Screening (12+) [code = Tobacco Cessation Counseling and Screening (12+)] Future Scheduled 2021-06-[address] [facility] Test 00:00:00 WELLNESS (YEAR 3 +) Medical Center [code = MEDICARE SUBSEQUENT WELLNESS (YEAR 3 +)] Future Scheduled 2021-06-[address] [facility] Test 00:00:00 Counseling and Medical Cente r Screening (12+) [code = Tobacco Cessation Counseling and Screening (12+)] Future Scheduled 2021-05-25 COVID-19 Vaccination [facility] [place] Test 06:41:22 (3 - Booster for MD Max Cancer Pfizer series) [code Center = COVID-19 Vaccination (3 - Booster for Pfizer series)] Future Scheduled 2021-05-07 FALLS RISK SCREENING [facility] Test 00:00:00 [code = FALLS RISK Medical C enter SCREENING] Future Scheduled 2019-08-28 DXA SCAN [code = DXA [facility] Test 00:00:00 SCAN] Medical Center Future Scheduled 2019-08-28 DXA SCAN [code = DXA [facility] Test 00:00:00 SCAN] [facility] Future Scheduled 2019-08-28 DXA SCAN [code = DXA [facility] Test 00:00:00 SCAN] [facility] Future Scheduled 1989 SHINGLES VACCINES ([address] [facility] Test 00:00:00 of 2) [code = [facility] Center SHINGLES VACCINES (1 of 2)] Future Scheduled 1989 SHINGLES VACCINES ([address] [facility] Test 00:00:00 of 2) [code = [facility] Center SHINGLES VACCINES (1 of 2)] Future Scheduled 1989 SHINGLES VACCINES ([address] [facility] Test 00:00:00 of 2) [code = [facility] Center SHINGLES VACCINES (1 of 2)] Future Scheduled 1958 DTAP/TDAP/TD VACCINES [facility] 00:00:00 (1 - Tdap) [code = Medical C enter DTAP/TDAP/TD VACCINES (1 - Tdap)] Future Scheduled 1958 DTAP/TDAP/TD VACCINES [facility] 00:00:00 (1 - Tdap) [code = Medical C enter DTAP/TDAP/TD VACCINES (1 - Tdap)] Future Scheduled 1958 DTAP/TDAP/TD VACCINES [facility] 00:00:00 (1 - Tdap) [code = Medical C enter DTAP/TDAP/TD VACCINES (1 - Tdap)] Future Scheduled 1939 COVID-19 VACCINE (#1) [facility] 00:[facility]:00 [code = COVID-[address] VACCINE (#1)] Future Scheduled 1939 COVID-19 VACCINE (#1) [facility] 00:00:00 [code = COVID-[address] VACCINE (#1)] Future Scheduled 1939 COVID-19 VACCINE (#1) [facility] 00:00:00 [code = COVID-[address] VACCINE (#1)] Encounters Start End Encounter Admission Attending Care Care Encounter Source Date/Time Date/Time Type Type Clinicians Facility Department ID 2022-05-17 Outpatient [facility] [id number] [place] 16:17:35 [id number] [facility] 2022-05-06 Outpatient 3 [id number] [place] [id number] [facility] 15:00:50 [facility] [place] [facility] 2022-05-05 Outpatient 3 [id number] ENC[place] REF [id number] [facility] 11:13:10 [facility] [place] 2022-04-10 Outpatient [facility] [id number] [place] 08:17:45 [id number] [facility] 2022-04-07 Outpatient [facility] [id number] [place] 15:08:10 [id number] [facility] 2022-03-24 Outpatient Rafael, PULSE PULSE [id number] Pulse 08:39:04 Bert 2022-03-16 Outpatient [facility], PULSE PULSE [id number] Pulse 09:45:02 [facility] 2022-02-10 Outpatient Rafael, PULSE PULSE [id number] Pulse 13:25:02 Bert 2022-02-09 Outpatient Rafael, PULSE PULSE [id number] Pulse 09:09:01 Bert 2021-12-19 Outpatient PULSE PULSE [id number] Pulse 11:00:03 [id number] 2022-02-15 2022-03-03 Inpatient nullFlavo [facility] [id number] Memoria 00:57:00 19:40:00 Rehab r Daniel 02 [facility] 2022-02-14 2022-03-03 Inpatient [id number] 19:57:00 14:40:00 [facility] 2022-02-14 2022-03-03 Outpatient [facility] [id number] 19:57:00 14:40:00 Maximino 02 2022-02-12 2022-02-14 Inpatient nullFlavo [facility] [id number] Memoria 17:26:00 23:56:00 r Daniel 81 l [place] Marilynn nn 2022-02-12 2022-02-14 Inpatient U RIMMA MANJARREZ MED [id number] FB 12:26:00 18:56:00 MICKI 2022-02-12 2022-02-14 Outpatient SHAZIA Manjarrez [facility] [id number] 12:26:00 18:56:00 Micki 81 Katty 2022-02-12 2022-02-12 Emergency nullFlavo [facility] [id number] Memoria 12:25:03 16:30:00 renetta Sanchez 01 l [facility] 2022-02-12 2022-02-12 Outpatient Brandon Saunders MHSL MHSL [id number] 12:26:00 12:26:00 82 2022-02-12 2022-02-12 Outpatient Tuttle, MHPL MHPL [id number] 07:25:03 11:30:00 Paco Ollie Gentile 2022-02-12 2022-02-12 Emergency E TELMA, MHBL MHBL [id number] MHBL 07:25:00 11:30:00 PACO 2022-02-12 2022-02-12 (TEL) PULSE PULSE [id number] Pu lse 00:00:00 00:00:00 2022-02-10 2022-02-10 [id number] Est PULSE PULSE [id number] Pulse 00:00:00 00:00:00 Patient 2022-02-08 2022-02-08 [facility] [id number] Memoria 16:05:43 21:02:00 renetta Sanchez 00 l [facility] 2022-02-08 2022-02-08 Outpatient Jodie, MHSE MHSE [id number] 11:05:43 16:02:00 Jennyfer Luci 00 2022-02-08 2022-02-08 Emergency E JODIE, MHSE MHSE [id number] MH 11:05:00 16:02:00 [facility]FER [facility] 2021-10-30 2021-10-30 Refill Rebekah [facility] [id number] 00:00:00 00:00:00 Carson Abernathy Yahaira [facility] 2021-10-30 2021-10-30 Refchris Rudolph [facility] [id number] 00:00:00 00:00:00 Carson Syed [facility] 2021-05-27 2021-05-27 Refchris Rudolph [facility] [id number] 00:00:00 00:00:00 Carsondolores Abernathy [facility] 2021-05-11 2021-05-11 Telephone Rebekah [facility] [id number] 00:00:00 00:00:00 Carsondolores Abernathy [facility] 2021-05-08 2021-05-08 Observatio nullFlavo [facility] [id number] Memoria 05:47:00 20:00:00 n Daniel l [facility] 2021-05-07 2021-05-08 Outpatient E TEVANI, MHSE [address] 23:47:00 14:00:00 [facility] 2021-05-07 2021-05-08 Outpatient Teqwimdebora, MHSE MHSE [id number] 23:47:00 14:00:00 Quan 01 2021-05-07 2021-05-08 [facility] [id number] Memoria 16:51:35 05:27:00 renetta Sanchez 00 l [facility] 2021-05-07 2021-05-07 Outpatient Ruthann Coronado MHPL MHPL [id number] 10:51:35 23:27:00 Q 2021-05-07 2021-05-07 Outpatient Ruthann Coronado MHPL MHPL [id number] 10:51:35 23:27:00 Q 00 2021-05-07 2021-05-07 Emergency E RUTHANN CORONADO MHBL MHBL [id number] MHBL 10:51:00 23:27:00 2021-04-21 2021-04-21 Refill Rebekah [facility] [id number] 00:00:00 00:00:00 Carson Josemanuel [facility] 2021-02-17 2021-02-17 Outpatient REBEKAH [facility] [id number] 00:00:00 00:00:00 [facility] 2020-12-06 2020-12-06 Outpatient REBEKAH [facility] [id number] 00:00:00 00:00:00 [facility] 2020-07-04 2020-07-04 Outpatient EL MDA MDA [id number] 11:38:37 12:01:58 Uri jack 2020-06-13 2020-06-13 Outpatient EL MDA MDA [id number] 11:40:51 12:01:01 Uri jack 2020-06-07 2020-06-07 Outpatient ONEIDALUKE, [facility] [id number] 00:00:00 00:00:00 [facility] 2019-07-17 2019-07-17 Outpatient [facility] [id number] 00:00:00 00:00:[id number] [facility] 2017-04-18 2017-05-18 OP Therapy nullFlavo SMR [id number] Memoria 18:15:00 05:59:00 Patients r Carla 06 l Shukri Bahena [facility] 2017-04-18 2017-05-17 Outpatient Rebekah, 2.16.840. [id number]. 3 [id number] 12:15:00 23:59:00 Carson Abernathy [id number] 5.57 2017-03-14 2017-04-13 OP Therapy nullFlavo SMR [id number] Memoria 17:52:00 05:59:00 Patients r Carla 05 l Shukri Bahena [facility] 2017-03-14 2017-04-12 Outpatient Knemmanuelquiana, 2.16.840. 2.16.840.1. 3 [id number] 11:52:00 23:59:00 Carson Abernathy [id number] 5.57 2017-02-09 2017-03-11 OP Therapy nullFlavo SMR [id number] Memoria 19:02:00 04:59:00 Patients r Carla 04 l Shukri Bahena [facility] 2017-02-09 2017-03-10 [facility] 2.16.840. 2.16.840.1. 3 [id number] 14:02:00 23:59:00 Carson Abernathy [id number] 5.57 Results Test Description Test Time Test Comments Results Result Comments Source CHEMISTRY 2022-03-03 11:20:00 Test Item Value Reference Range Interpretation Comme nts Glucose Lvl (test code = Glucose Lvl) 83 70-99 [facility] ClubUintknbIDBPJJUTV5782-64-00 11:20:00 Test Item Value Reference Range Interpretation Comments BUN (test code = BUN) 21 7-22 [facility] ClubLimatztVBBAOWGGR8743-69-04 11:20:00 Test Item Value Reference Range Interpretation Comments Creatinine Lvl (test code = Creatinine 1.00 0.50-1.40 Lvl) [facility] ClubNokamxwJMTEIAMTB8680-87-12 11:20:00 Test Item Value Reference Range Interpretation Comments Sodium Lvl (test code = Sodium Lvl) 140 135-145 [facility] ClubUfinrseGNBSWEATN7858-19-38 11:20:00 Test Item Value Reference Range Interpretation Comments Potassium Lvl (test code = Potassium 4.1 3.5-5.1 Lvl) [facility] ClubTvbzfjrNNLRFZCOS9970-91-69 11:20:00 Test Item Value Reference Range Interpretation Comments Chloride Lvl (test code = Chloride Lvl) 111 95-109 [facility] ClubQdtsprsBZCAWNDXO3607-53-86 11:20:00 Test Item Value Reference Range Interpretation Comments CO2 (test code = CO2) 23 24-32 [facility] ClubMtbsiqcUDCKOYIQU6704-51-94 11:20:00 Test Item Value Reference Range Interpretation Comments Calcium Lvl (test code = Calcium Lvl) 8.6 8.5-10.5 [facility] ClubYhenppzIAKDKDVZZ4427-98-14 11:20:00 Test Item Value Reference Range Interpretation Comments AGAP (test code = AGAP) 10.1 10.0-20.0 [facility] ClubAyegybnTSBQVPEFT3585-63-31 11:20:00 Test Item Value Reference Range Interpretation Comments eGFR (test code = eGFR) 56 [facility]PNPVPDPLXE5770-51-07 11:20:00 Test Item Value Reference Range Interpretation Comments Segs (test code = Segs) 58.9 45.0-75.0 [facility] SystemPtenfusCYCNRMZCXB4514-72-88 11:20:00 Test Item Value Reference Range Interpretation Comments Lymphocytes (test code = Lymphocytes) 22.9 20.0-40.0 [facility] TexasQjunispQYXWLFIERA8886-30-02 11:20:00 Test Item Value Reference Range Interpretation Comments Monocytes (test code = Monocytes) 12.6 2.0-12.0 [place] [address]-10-28 11:20:00 Test Item Value Reference Range Interpretation Comments Eosinophils (test code = 4.3 See_Comment [A utomated message] The Eosinophils) system which ge nerated this result tra nsmitted reference range : <=4.0. The reference r fermín was not used to int erpret this result as normal/abnormal . [place] [address]-10-28 11:20:00 Test Item Value Reference Range Interpretation Comments Basophils (test code = 1.3 See_Comment [Aut omated message] The Basophils) system which ge nerated this result tra nsmitted reference range : <=1.0. The reference r fermín was not used to int erpret this result as normal/abnormal . [place] [address]-10-28 11:20:00 Test Item Value Reference Range Interpretation Comments Neutrophils # (test code = Neutrophils 2.9 1.5-8.1 #) [place] [address]-10-28 11:20:00 Test Item Value Reference Range Interpretation Comments Lymphocytes # (test code = Lymphocytes 1.1 1.0-5.5 #) [place] [address]-10-28 11:20:00 Test Item Value Reference Range Interpretation Comments Monocytes # (test code 0.6 See_Comment [Aut omated message] The = Monocytes #) system which generated this result tra nsmitted reference range : <=0.8. The reference r fermín was not used to int erpret this result as normal/abnormal . [place] [address]-10-28 11:20:00 Test Item Value Reference Range Interpretation Comments Eosinophils # (test code 0.2 See_Comment [A utomated message] The = Eosinophils #) system whic h generated this result tra nsmitted reference range : <=0.5. The reference r fermín was not used to int erpret this result as normal/abnormal . [place] [address]-10-28 11:20:00 Test Item Value Reference Range Interpretation Comments Basophils # (test code 0.1 See_Comment [Aut omated message] The = Basophils #) system which generated this result tra nsmitted reference range : <=0.2. The reference r fermín was not used to int erpret this result as normal/abnormal . [facility] TexasPfrloerKQYRMKAWYR2243-76-65 11:20:00 Test Item Value Reference Range Interpretation Comments WBC X 10x3 (test code = WBC X 10x3) 5.0 3.7-10.4 [facility] TexasHnuxttzNQXUZUDBRC7706-31-05 11:20:00 Test Item Value Reference Range Interpretation Comments RBC X 10x6 (test code = RBC X 10x6) 3.89 4.20-5.40 [facility] TexasHdldtznMSXUFJCILY1240-64-27 11:20:00 Test Item Value Reference Range Interpretation Comments Hgb (test code = Hgb) 12.1 12.0-16.0 [facility] TexasYeusrcjMUSMJAMHDW9921-93-16 11:20:00 Test Item Value Reference Range Interpretation Comments Hct (test code = Hct) 35.8 36.0-48.0 [place] 283582-10-28 11:20:00 Test Item Value Reference Range Interpretation Comments MCV (test code = MCV) 92.0 80.0-98.0 [facility] TexasBaslqhrFITMQRIKOP9174-78-24 11:20:00 Test Item Value Reference Range Interpretation Comments MCH (test code = MCH) 31.0 pg 27.0-31.0 [facility] TexasHozytasPPRYBDLXOM1461-70-66 11:20:00 Test Item Value Reference Range Interpretation Comments MCHC (test code = MCHC) 33.7 32.0-36.0 [place] 283582-10-28 11:20:00 Test Item Value Reference Range Interpretation Comments RDW (test code = RDW) 13.4 11.5-14.5 [facility] TexasKqfzbidGKZOPNOJPO9414-67-41 11:20:00 Test Item Value Reference Range Interpretation Comments Platelet (test code = Platelet) 139 133-450 [facility] TexasDtrhqgyIJBDVFCSNO5810-27-66 11:20:00 Test Item Value Reference Range Interpretation Comments MPV (test code = MPV) 9.8 7.4-10.4 [facility] ClubGudbygxHBJIORUSC4389-37-41 21:37:00 Test Item Value Reference Range Interpretation Comments TSH (test code = TSH) 4.720 0.360-3.740 [facility] ClubDgrgbiwYUUOHPHIW2014-37-23 21:37:00 Test Item Value Reference Range Interpretation Comments T4 Free (test code = T4 Free) 0.99 0.76-1.46 [place] 997062-10-10 10:13:00 Test Item Value Reference Range Interpretation Comments Glucose Lvl (test code = Glucose Lvl) 90 70-99 [place] 997062-10-10 10:13:00 Test Item Value Reference Range Interpretation Comments BUN (test code = BUN) 11 7-22 [place] 997062-10-10 10:13:00 Test Item Value Reference Range Interpretation Comments Creatinine Lvl (test code = Creatinine 0.84 0.50-1.40 Lvl) [place] 997062-10-10 10:13:00 Test Item Value Reference Range Interpretation Comments Sodium Lvl (test code = Sodium Lvl) 140 135-145 [place] 997062-10-10 10:13:00 Test Item Value Reference Range Interpretation Comments Potassium Lvl (test code = Potassium 4.2 3.5-5.1 Lvl) [place] 997062-10-10 10:13:00 Test Item Value Reference Range Interpretation Comments Chloride Lvl (test code = Chloride Lvl) 108 95-109 [place] 997062-10-10 10:13:00 Test Item Value Reference Range Interpretation Comments CO2 (test code = CO2) 27 24-32 [place] 997062-10-10 10:13:00 Test Item Value Reference Range Interpretation Comments Calcium Lvl (test code = Calcium Lvl) 8.8 8.5-10.5 [place] 997062-10-10 10:13:00 Test Item Value Reference Range Interpretation Comments AGAP (test code = AGAP) 9.2 10.0-20.0 [place] 997062-10-10 10:13:00 Test Item Value Reference Range Interpretation Comments eGFR (test code = eGFR) 70 [place] 273792-10-10 10:13:00 Test Item Value Reference Range Interpretation Comments Trig (test code = Trig) 115 [place] 273792-10-10 10:13:00 Test Item Value Reference Range Interpretation Comments Chol (test code = Chol) 191 [facility] ClubClpodxvGUADOHIDP0338-14-01 10:13:00 Test Item Value Reference Range Interpretation Comments HDL (test code = HDL) 55 [place] 273792-10-10 10:13:00 Test Item Value Reference Range Interpretation Comments CHD Risk (test code = CHD Risk) 3.47 1 3.90-5.80 [facility] ClubZjiadfuTDAHQNLHS7654-84-05 10:13:00 Test Item Value Reference Range Interpretation Comments LDL (Calculated) (test code = LDL 113 (Calculated)) [facility] ClubGikfcbvDPADAPQMM7729-88-74 10:13:00 Test Item Value Reference Range Interpretation Comments VLDL (test code = VLDL) 23 1 [facility] ClubMilnchlWLSZKTEQB5654-34-01 10:13:00 Test Item Value Reference Range Interpretation Comments Hgb A1C (test code = Hgb A1C) 5.9 [facility] ClubAmiwaaiXYTGXVQPC4120-13-58 10:13:00 Test Item Value Reference Range Interpretation Comments Glucose Lvl (test code = Glucose Lvl) 90 70-99 [facility] ClubVymljhzTSTJONRDR0298-13-82 10:13:00 Test Item Value Reference Range Interpretation Comments BUN (test code = BUN) 11 7-22 [facility] ClubSvyhvuaZOTZQCWTP7686-38-28 10:13:00 Test Item Value Reference Range Interpretation Comments Creatinine Lvl (test code = Creatinine 0.84 0.50-1.40 Lvl) [facility] ClubLhjwjpvURWZDIDZC8429-37-81 10:13:00 Test Item Value Reference Range Interpretation Comments Sodium Lvl (test code = Sodium Lvl) 140 135-145 [facility] ClubEgylxodMUUPYJXJO8960-50-96 10:13:00 Test Item Value Reference Range Interpretation Comments Potassium Lvl (test code = Potassium 4.2 3.5-5.1 Lvl) [facility] ClubVpdsgivUQUOHLBRH0544-93-94 10:13:00 Test Item Value Reference Range Interpretation Comments Chloride Lvl (test code = Chloride Lvl) 108 95-109 [facility] ClubLciqxnmKUDXZCLVK0012-71-54 10:13:00 Test Item Value Reference Range Interpretation Comments CO2 (test code = CO2) 27 24-32 [facility] ClubAgxsuwpILFEMWNSY2801-73-22 10:13:00 Test Item Value Reference Range Interpretation Comments Calcium Lvl (test code = Calcium Lvl) 8.8 8.5-10.5 [facility] ClubTqpzbmdJYYSOUMVN5034-41-23 10:13:00 Test Item Value Reference Range Interpretation Comments AGAP (test code = AGAP) 9.2 10.0-20.0 [facility] ClubSrzxzakEUVKGEKYO5348-18-63 10:13:00 Test Item Value Reference Range Interpretation Comments eGFR (test code = eGFR) 70 [place] 283582-10-10 10:13:00 Test Item Value Reference Range Interpretation Comments Segs (test code = Segs) 70.2 45.0-75.0 [place] [address]-10-10 10:13:00 Test Item Value Reference Range Interpretation Comments Lymphocytes (test code = Lymphocytes) 17.1 20.0-40.0 [place] 283582-10-10 10:13:00 Test Item Value Reference Range Interpretation Comments Monocytes (test code = Monocytes) 9.6 2.0-12.0 [place] 283582-10-10 10:13:00 Test Item Value Reference Range Interpretation Comments Eosinophils (test code = 2.1 See_Comment [A utomated message] The Eosinophils) system which ge nerated this result tra nsmitted reference range : <=4.0. The reference r fermín was not used to int erpret this result as normal/abnormal . [place] 283582-10-10 10:13:00 Test Item Value Reference Range Interpretation Comments Basophils (test code = 1.0 See_Comment [Aut omated message] The Basophils) system which ge nerated this result tra nsmitted reference range : <=1.0. The reference r fermín was not used to int erpret this result as normal/abnormal . [place] 283582-10-10 10:13:00 Test Item Value Reference Range Interpretation Comments Neutrophils # (test code = Neutrophils 3.4 1.5-8.1 #) [place] 283582-10-10 10:13:00 Test Item Value Reference Range Interpretation Comments Lymphocytes # (test code = Lymphocytes 0.8 1.0-5.5 #) [place] 283582-10-10 10:13:00 Test Item Value Reference Range Interpretation Comments Monocytes # (test code 0.5 See_Comment [Aut omated message] The = Monocytes #) system which generated this result tra nsmitted reference range : <=0.8. The reference r fermín was not used to int erpret this result as normal/abnormal . [place] 283582-10-10 10:13:00 Test Item Value Reference Range Interpretation Comments Eosinophils # (test code 0.1 See_Comment [A utomated message] The = Eosinophils #) system [employer] h generated this result tra nsmitted reference range : <=0.5. The reference r fermín was not used to int erpret this result as normal/abnormal . [facility] TexasXohxvbmJJQAPBRVWW2696-76-99 10:13:00 Test Item Value Reference Range Interpretation Comments WBC (test code = WBC) 4.8 3.7-10.4 [facility] TexasCnunhruRBDIQRQDYX5155-62-39 10:13:00 Test Item Value Reference Range Interpretation Comments RBC (test code = RBC) 3.97 4.20-5.40 [facility] TexasPthoqrlQNOZPKOWVP0952-64-46 10:13:00 Test Item Value Reference Range Interpretation Comments Hgb (test code = Hgb) 12.2 12.0-16.0 [facility] TexasRwpbndrWGCGUPMKWX9460-14-30 10:13:00 Test Item Value Reference Range Interpretation Comments Hct (test code = Hct) 36.9 36.0-48.0 [facility] TexasRfyubznVSGTGLVCAJ1680-99-07 10:13:00 Test Item Value Reference Range Interpretation Comments MCV (test code = MCV) 92.8 80.0-98.0 [facility] TexasKptaqmjDNPBAPQRXY9175-79-10 10:13:00 Test Item Value Reference Range Interpretation Comments MCH (test code = MCH) 30.7 pg 27.0-31.0 [facility] TexasRnkcnqaBVZMYMGTAU0589-43-54 10:13:00 Test Item Value Reference Range Interpretation Comments MCHC (test code = MCHC) 33.1 32.0-36.0 [facility] TexasZtrneuvUNJEFDWALG9957-92-95 10:13:00 Test Item Value Reference Range Interpretation Comments RDW (test code = RDW) 13.3 11.5-14.5 [facility] TexasYxhuxfaSFALDRYEMH7974-14-27 10:13:00 Test Item Value Reference Range Interpretation Comments Platelet (test code = Platelet) 125 133-450 [facility] TexasFlutfenOHUEHTDQFB6422-45-55 10:13:00 Test Item Value Reference Range Interpretation Comments MPV (test code = MPV) 8.9 7.4-10.4 [facility] TexasQskrotkXNPNRNQZUB3012-39-26 10:13:00 Test Item Value Reference Range Interpretation Comments Segs (test code = Segs) 70.2 45.0-75.0 [place] 283582-10-10 10:13:00 Test Item Value Reference Range Interpretation Comments Lymphocytes (test code = Lymphocytes) 17.1 20.0-40.0 [place] 283582-10-10 10:13:00 Test Item Value Reference Range Interpretation Comments Monocytes (test code = Monocytes) 9.6 2.0-12.0 [facility] TexasLhfjzgcNNLOJFVLJZ4006-74-36 10:13:00 Test Item Value Reference Range Interpretation Comments Eosinophils (test code = 2.1 See_Comment [A utomated message] The Eosinophils) system which ge nerated this result tra nsmitted reference range : <=4.0. The reference r fermín was not used to int erpret this result as normal/abnormal . [facility] TexasUcdnupnOFHIKAQFOS9969-53-99 10:13:00 Test Item Value Reference Range Interpretation Comments Basophils (test code = 1.0 See_Comment [Aut omated message] The Basophils) system which ge nerated this result tra nsmitted reference range : <=1.0. The reference r fermín was not used to int erpret this result as normal/abnormal . [facility] TexasLobayodTUBMSUOYHB2895-07-73 10:13:00 Test Item Value Reference Range Interpretation Comments Neutrophils # (test code = Neutrophils 3.4 1.5-8.1 #) [facility] TexasUwatbbrNULZVIYYOF1793-41-56 10:13:00 Test Item Value Reference Range Interpretation Comments Lymphocytes # (test code = Lymphocytes 0.8 1.0-5.5 #) [facility] TexasQwersfuWOWOSIWIDD0330-66-49 10:13:00 Test Item Value Reference Range Interpretation Comments Monocytes # (test code 0.5 See_Comment [Aut omated message] The = Monocytes #) system which generated this result tra nsmitted reference range : <=0.8. The reference r fermín was not used to int erpret this result as normal/abnormal . [facility] TexasZqzhcupNRNXSMMOKM3671-41-08 10:13:00 Test Item Value Reference Range Interpretation Comments Eosinophils # (test code 0.1 See_Comment [A utomated message] The = Eosinophils #) system whic h generated this result tra nsmitted reference range : <=0.5. The reference r fermín was not used to int erpret this result as normal/abnormal . [facility] TexasHdvvjlyPIFXSSTGTQ7449-29-79 10:13:00 Test Item Value Reference Range Interpretation Comments WBC (test code = WBC) 4.8 3.7-10.4 [facility] TexasMbmqqtaEUVNFGBQWI0080-39-41 10:13:00 Test Item Value Reference Range Interpretation Comments RBC (test code = RBC) 3.97 4.20-5.40 [facility] TexasMluucujUYNLWKAUTV9879-34-83 10:13:00 Test Item Value Reference Range Interpretation Comments Hgb (test code = Hgb) 12.2 12.0-16.0 [facility] TexasUllbkawJMMVMZBKHX9520-48-94 10:13:00 Test Item Value Reference Range Interpretation Comments Hct (test code = Hct) 36.9 36.0-48.0 [facility] TexasSztronzTTEMGACEVE8503-21-89 10:13:00 Test Item Value Reference Range Interpretation Comments MCV (test code = MCV) 92.8 80.0-98.0 [facility] TexasLpwbtodFTYSCIRVLC2247-81-78 10:13:00 Test Item Value Reference Range Interpretation Comments MCH (test code = MCH) 30.7 pg 27.0-31.0 [facility] TexasJndpxpbWSBSSHXMXB2078-04-76 10:13:00 Test Item Value Reference Range Interpretation Comments MCHC (test code = MCHC) 33.1 32.0-36.0 [facility] TexasXqvynafGSYKNFHSAV9658-38-55 10:13:00 Test Item Value Reference Range Interpretation Comments RDW (test code = RDW) 13.3 11.5-14.5 [facility] TexasPdtzzkcAATSPZBNFK0265-67-87 10:13:00 Test Item Value Reference Range Interpretation Comments Platelet (test code = Platelet) 125 133-450 [facility] TexasWyoddvoQOITTEYDYO4610-74-05 10:13:00 Test Item Value Reference Range Interpretation Comments MPV (test code = MPV) 8.9 7.4-10.4 [place] 638452-10-10 10:13:00 Test Item Value Reference Range Interpretation Comments Trig (test code = Trig) 115 [facility] SpringsYivbnoqJXQUIN7645-86-04 10:13:00 Test Item Value Reference Range Interpretation Comments Chol (test code = Chol) 191 [facility] SpringsRejmpqwZRROQE5468-18-36 10:13:00 Test Item Value Reference Range Interpretation Comments HDL (test code = HDL) 55 [facility] SpringsQnwchxbXKEXPD0636-84-44 10:13:00 Test Item Value Reference Range Interpretation Comments CHD Risk (test code = CHD Risk) 3.47 1 3.90-5.80 [facility]OzvzrdvBVYNPD5135-94-12 10:13:00 Test Item Value Reference Range Interpretation Comments LDL (Calculated) (test code = LDL 113 (Calculated)) [facility] DallasHxxgeosTVHKIJ9743-06-33 10:13:00 Test Item Value Reference Range Interpretation Comments VLDL (test code = VLDL) [facility] O[facility]RPB[facility]ZS0678[facility]43-16 10:13:00 Test Item Value Reference Range Interpretation Comments Hgb A1C (test code = Hgb A1C) 5.9 [facility] DallasYjmeftjNKYRGO7128-54-92 22:21:21 Test Item Value Reference Range Interpretation Comments RADRPT (test code Patient Name: JUSTINE = MARTINA) TREMIEDOB: 1940; Age: 81 years y/o FemaleMR: [id number]: Brain wo contrast MRI 02/12/2022 14:17Ordering Physician: THOMAS Soareslinical Indication: - r/o cva;Comparison: Today's CT and CTATECHNIQUE: Multiplanar noncontrast MRI of the brain is performed.FINDINGS: BRAIN PARENCHYMA: There is an acute/recent in right MCA territory infarction predominantly involving the frontal lobe both superficially and deep with mild involvement of the parietal lobe and insula. Moderate stenosis of the anterior division right MCA M2 branch better seen on CTA.There is mild diffuse cerebral atrophy, including hippocampal and midbrain volumes. There are moderate, periventricular confluent and punctate T2 hyperintensities involving the cerebral white matter , basal ganglia, and gregory without blooming artifact nor diffusion restriction. These are nonspecific but likely represent small vessel ischemic change and chronic lacunar infarctions. There is no hemorrhage, mass lesion, extra axial collection, or mass effect. The cerebellar tonsils are above foramen magnum. The pituitary gland is age-appropriate. CEREBELLOPONTINE REGIONS AND SKULL BASE: The cerebellopontine angles appear unremarkable. No skull base abnormality is seen.VENTRICLES/SULCI/CISTE RNS: The ventricles are normal in size and configuration. The basal cisterns are patent.VISUALIZED VESSELS: Major intracranial flow voids are preserved.ORBITS, VISUALIZED PARANASAL SINUSES AND MASTOIDS: Paranasal sinuses are clear. The mastoid air cells are clear. 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 Background of moderate chronic small vessel ischemic change/lacunar infarctions.Critical findings discussed with Dr. Brandon Saunders MD via [employer] at 02/12/2022 17:32 [CRIT] [facility]pfrjjrAGEXFZKHLD0367-16-55 20:45:00 Test Item Value Reference Range Interpretation Comments Coronavirus (COVID-19) Not Detected (02/12/22 DIMAS (test code = 3:45 PM) Coronavirus (COVID-19) DIMAS) [place] 116172-10-09 20:45:00 Test Item Value Reference Range Interpretation Comments Coronavirus (COVID-19) Not Detected (02/12/22 DIMAS (test code = 3:45 PM) Coronavirus (COVID-19) DIMAS) [facility]2022-10-09 12:38:00 Test Item Value Reference Range Interpretation Comments Glucose Lvl (test code = Glucose Lvl) 100 70-99 [facility]2022-10-09 12:38:00 Test Item Value Reference Range Interpretation Comments BUN (test code = BUN) 14 7-22 [facility]2022-10-09 12:38:00 Test Item Value Reference Range Interpretation Comments Creatinine Lvl (test code = Creatinine 0.98 0.50-1.40 Lvl) [facility]2022-10-09 12:38:00 Test Item Value Reference Range Interpretation Comments Sodium Lvl (test code = Sodium Lvl) 139 135-145 [facility]2022-10-09 12:38:00 Test Item Value Reference Range Interpretation Comments Potassium Lvl (test code = Potassium 4.2 3.5-5.1 Lvl) [facility]2022-10-09 12:38:00 Test Item Value Reference Range Interpretation Comments Chloride Lvl (test code = Chloride Lvl) 108 95-109 [facility]2022-10-09 12:38:00 Test Item Value Reference Range Interpretation Comments CO2 (test code = CO2) 27 24-32 [facility]2022-10-09 12:38:00 Test Item Value Reference Range Interpretation Comments Calcium Lvl (test code = Calcium Lvl) 9.5 8.5-10.5 [place] 997062-10-09 12:38:00 Test Item Value Reference Range Interpretation Comments Total Protein (test code = Total 7.4 6.4-8.4 Protein) [place] 997062-10-09 12:38:00 Test Item Value Reference Range Interpretation Comments Albumin Lvl (test code = Albumin Lvl) 3.6 3.5-5.0 [place] 997062-10-09 12:38:00 Test Item Value Reference Range Interpretation Comments ALT (test code = ALT) 21 See_Comment [Auto mated message] The system which ge nerated this result transmit kalie reference range : <=65. The reference range was not used to interpr et this result as sylvester l/abnormal. [place] 997062-10-09 12:38:00 Test Item Value Reference Range Interpretation Comments AST (test code = AST) 24 See_Comment [Auto mated message] The system which ge nerated this result transmit kalie reference range : <=37. The reference range was not used to interpr et this result as sylvester l/abnormal. [facility]2022-10-09 12:38:00 Test Item Value Reference Range Interpretation Comments Alk Phos (test code = Alk Phos) 71 39-136 [facility]2022-10-09 12:38:00 Test Item Value Reference Range Interpretation Comments Bili Total (test code = Bili Total) 0.5 0.2-1.3 [place] 997062-10-09 12:38:00 Test Item Value Reference Range Interpretation Comments AGAP (test code = AGAP) 8.2 10.0-20.0 [place] 997062-10-09 12:38:00 Test Item Value Reference Range Interpretation Comments B/C Ratio (test code = B/C Ratio) 14 1 6-25 [place] 997062-10-09 12:38:00 Test Item Value Reference Range Interpretation Comments Globulin (test code = Globulin) 3.8 2.7-4.2 [place] 997062-10-09 12:38:00 Test Item Value Reference Range Interpretation Comments A/G Ratio (test code = A/G Ratio) 0.9 1 0.7-1.6 [place] [address]-10-09 12:38:00 Test Item Value Reference Range Interpretation Comments eGFR (test code = eGFR) 58 [place] 997062-10-09 12:38:00 Test Item Value Reference Range Interpretation Comments Lipase Lvl (test code = Lipase Lvl) 35 73-393 [place] [address]-10-09 12:38:00 Test Item Value Reference Range Interpretation Comments WBC (test code = WBC) 6.1 3.7-10.4 [place] [address]-10-09 12:38:00 Test Item Value Reference Range Interpretation Comments RBC (test code = RBC) 4.17 4.20-5.40 [place] [address]-10-09 12:38:00 Test Item Value Reference Range Interpretation Comments Hgb (test code = Hgb) 12.9 12.0-16.0 [place] [address]-10-09 12:38:00 Test Item Value Reference Range Interpretation Comments Hct (test code = Hct) 39.2 36.0-48.0 [place] [address]-10-09 12:38:00 Test Item Value Reference Range Interpretation Comments MCV (test code = MCV) 94.0 80.0-98.0 [place] [address]-10-09 12:38:00 Test Item Value Reference Range Interpretation Comments MCH (test code = MCH) 30.9 pg 27.0-31.0 [place] [address]-10-09 12:38:00 Test Item Value Reference Range Interpretation Comments MCHC (test code = MCHC) 32.9 32.0-36.0 [place] [address]-10-09 12:38:00 Test Item Value Reference Range Interpretation Comments RDW (test code = RDW) 13.3 11.5-14.5 [place] [address]-10-09 12:38:00 Test Item Value Reference Range Interpretation Comments Platelet (test code = Platelet) 150 133-450 [facility] TexasQobiccrFCTAIUUZZV6878-87-09 12:38:00 Test Item Value Reference Range Interpretation Comments MPV (test code = MPV) 8.7 7.4-10.4 [place] [address]-10-09 12:38:00 Test Item Value Reference Range Interpretation Comments Segs (test code = Segs) 73.9 45.0-75.0 [facility] TexasQfizkymRMMGPONOQG8759-75-52 12:38:00 Test Item Value Reference Range Interpretation Comments Lymphocytes (test code = Lymphocytes) 13.8 20.0-40.0 [facility] TexasYjfpmgrQRNZDHATWW8699-06-54 12:38:00 Test Item Value Reference Range Interpretation Comments Monocytes (test code = Monocytes) 8.6 2.0-12.0 [facility] TexasDtmluiyDNOUIGPNPU8653-75-86 12:38:00 Test Item Value Reference Range Interpretation Comments Eosinophils (test code = 2.5 See_Comment [A utomated message] The Eosinophils) system which ge nerated this result tra nsmitted reference range : <=4.0. The reference r fermín was not used to int erpret this result as normal/abnormal . [facility] TexasBwifulqILXVSAESND5694-74-71 12:38:00 Test Item Value Reference Range Interpretation Comments Basophils (test code = 1.2 See_Comment [Aut omated message] The Basophils) system which ge nerated this result tra nsmitted reference range : <=1.0. The reference r fermín was not used to int erpret this result as normal/abnormal . [facility] TexasLozktjyDMJXWKLZTS0937-16-14 12:38:00 Test Item Value Reference Range Interpretation Comments Neutrophils # (test code = Neutrophils 4.5 1.5-8.1 #) [facility] TexasRnyqonxPSPWJLFPWY6554-93-57 12:38:00 Test Item Value Reference Range Interpretation Comments Lymphocytes # (test code = Lymphocytes 0.8 1.0-5.5 #) [facility] TexasVyookrhIUVOGKOLUS2033-81-19 12:38:00 Test Item Value Reference Range Interpretation Comments Monocytes # (test code 0.5 See_Comment [Aut omated message] The = Monocytes #) system which generated this result tra nsmitted reference range : <=0.8. The reference r fermín was not used to int erpret this result as normal/abnormal . [facility] TexasLduhtpyHVCHETQFRL7721-43-23 12:38:00 Test Item Value Reference Range Interpretation Comments Eosinophils # (test code 0.2 See_Comment [A utomated message] The = Eosinophils #) system whic h generated this result tra nsmitted reference range : <=0.5. The reference r fermín was not used to int erpret this result as normal/abnormal . [facility] TexasLsvfdcmOSPKVRXHKL0317-76-86 12:38:00 Test Item Value Reference Range Interpretation Comments Basophils # (test code 0.1 See_Comment [Aut omated message] The = Basophils #) system which generated this result tra nsmitted reference range : <=0.2. The reference r fermín was not used to int erpret this result as normal/abnormal . [facility] HospitalAnvigtcLONBERFPSO9759-26-81 12:38:00 Test Item Value Reference Range Interpretation Comments Ethanol Lvl (test code = Ethanol Lvl) no gt [facility] DallasAeashqgLSHVRNZSUZ2262-63-82 12:38:00 Test Item Value Reference Range Interpretation Comments Etoh (%) (test code = Etoh (%)) no gt [facility] DallasCARDIAC DDJWPNC4147-95-12 16:33:00 Test Item Value Reference Range Interpretation Comments HS Troponin I (test code = HS Troponin 11 I) [facility] DallasC[facility] THVQK2340-40-62 16:33:00 Test Item Value Reference Range Interpretation Comments Glucose Lvl (test code = Glucose Lvl) 117 70-99 [facility] CDAOY5302-44-41 16:33:00 Test Item Value Reference Range Interpretation Comments BUN (test code = BUN) 23 7-22 [facility] DQIEA6930-85-86 16:33:00 Test Item Value Reference Range Interpretation Comments Creatinine Lvl (test code = Creatinine 1.00 0.50-1.40 Lvl) [facility]2022-10-05 16:33:00 Test Item Value Reference Range Interpretation Comments Sodium Lvl (test code = Sodium Lvl) 141 135-145 [facility] XCCKF0800-22-08 16:33:00 Test Item Value Reference Range Interpretation Comments Potassium Lvl (test code = Potassium 4.5 3.5-5.1 Lvl) [facility] [id number] 16:33:00 Test Item Value Reference Range Interpretation Comments Chloride Lvl (test code = Chloride Lvl) 111 95-109 [facility] NXSTH6552-11-24 16:33:00 Test Item Value Reference Range Interpretation Comments CO2 (test code = CO2) 26 24-32 [facility] NQJIY0831-84-79 16:33:00 Test Item Value Reference Range Interpretation Comments Calcium Lvl (test code = Calcium Lvl) 9.7 8.5-10.5 [address]10-05 16:33:00 Test Item Value Reference Range Interpretation Comments AGAP (test code = AGAP) 8.5 10.0-20.0 [place] 997062-10-05 16:33:00 Test Item Value Reference Range Interpretation Comments eGFR (test code = eGFR) 56 [place] 997062-10-05 16:33:00 Test Item Value Reference Range Interpretation Comments Total Protein (test code = Total 7.7 6.4-8.4 Protein) [address]10-05 16:33:00 Test Item Value Reference Range Interpretation Comments Albumin Lvl (test code = Albumin Lvl) 3.8 3.5-5.0 [place] 997062-10-05 16:33:00 Test Item Value Reference Range Interpretation Comments ALT (test code = ALT) 26 See_Comment [Auto mated message] The system which ge nerated this result transmit kalie reference range : <=65. The reference range was not used to interpr et this result as sylvester l/abnormal. [place] [address]-10-05 16:33:00 Test Item Value Reference Range Interpretation Comments AST (test code = AST) 24 See_Comment [Auto mated message] The system which ge nerated this result transmit kalie reference range : <=37. The reference range was not used to interpr et this result as sylvester l/abnormal. [address]10-05 16:33:00 Test Item Value Reference Range Interpretation Comments Alk Phos (test code = Alk Phos) 75 39-136 [facility] METUS9984-76-84 16:33:00 Test Item Value Reference Range Interpretation Comments Bili Total (test code = Bili Total) 0.3 0.2-1.3 [address]10-05 16:33:00 Test Item Value Reference Range Interpretation Comments Bili Direct (test code 0.1 See_Comment [Aut omated message] The = Bili Direct) system which generated this result tra nsmitted reference range : <=0.3. The reference r fermín was not used to int erpret this result as sylvester l/abnormal. [facility] XGEWS0645-52-92 16:33:00 Test Item Value Reference Range Interpretation Comments Bili Indirect (test 0.2 See_Comment [Automa kalie message] The code = Bili Indirect) system which generated this result tra nsmitted reference range : <=1.0. The reference r fermín was not used to int erpret this result as normal/abnormal . [facility] JTKDV7765-38-59 16:33:00 Test Item Value Reference Range Interpretation Comments Globulin (test code = Globulin) 3.9 2.7-4.2 [facility] ZFQGS1078-46-31 16:33:00 Test Item Value Reference Range Interpretation Comments A/G Ratio (test code = A/G Ratio) 1.0 1 0.7-1.6 [place] [address]-10-05 16:33:00 Test Item Value Reference Range Interpretation Comments WBC (test code = WBC) 5.9 3.7-10.4 [place] 283582-10-05 16:33:00 Test Item Value Reference Range Interpretation Comments RBC (test code = RBC) 4.33 4.20-5.40 [place] [address]-10-05 16:33:00 Test Item Value Reference Range Interpretation Comments Hgb (test code = Hgb) 13.1 12.0-16.0 [place] [address]-10-05 16:33:00 Test Item Value Reference Range Interpretation Comments Hct (test code = Hct) 40.7 36.0-48.0 [place] 283582-10-05 16:33:00 Test Item Value Reference Range Interpretation Comments MCV (test code = MCV) 94.0 80.0-98.0 [place] [address]-10-05 16:33:00 Test Item Value Reference Range Interpretation Comments MCH (test code = MCH) 30.3 pg 27.0-31.0 [place] [address]-10-05 16:33:00 Test Item Value Reference Range Interpretation Comments MCHC (test code = MCHC) 32.3 32.0-36.0 [place] [address]-10-05 16:33:00 Test Item Value Reference Range Interpretation Comments RDW (test code = RDW) 13.8 11.5-14.5 [place] 283582-10-05 16:33:00 Test Item Value Reference Range Interpretation Comments Platelet (test code = Platelet) 149 133-450 [facility] TexasHukcoadQLAAIYSNUF4127-09-84 16:33:00 Test Item Value Reference Range Interpretation Comments MPV (test code = MPV) 9.0 7.4-10.4 [facility] TexasSqynjzzRTFVTANIUN3804-60-14 16:33:00 Test Item Value Reference Range Interpretation Comments PT (test code = PT) See Note 3(02/08/22 11:33 12.0-14.7 AM) [facility] TexasFuzysmfFPHUXNOFAB4556-92-39 16:33:00 Test Item Value Reference Range Interpretation Comments INR (test code = INR) See Note 2(02/08/22 0.85-1.17 11:33 AM) [facility] TexasHypphinQRVOHLFUJG3845-52-39 16:33:00 Test Item Value Reference Range Interpretation Comments PTT (test code = PTT) See Note 4(02/08/22 22.9-35.8 11:33 AM) [facility] TexasMekgnubILVXRFETOU7437-89-17 16:33:00 Test Item Value Reference Range Interpretation Comments Segs (test code = Segs) 79.2 45.0-75.0 [facility] TexasEtrrcpfAZLAQYOXCD6043-13-87 16:33:00 Test Item Value Reference Range Interpretation Comments Lymphocytes (test code = Lymphocytes) 11.9 20.0-40.0 [facility] TexasIhbmoeuWXCNSMWOVY4135-07-26 16:33:00 Test Item Value Reference Range Interpretation Comments Monocytes (test code = Monocytes) 6.9 2.0-12.0 [facility] TexasTsqgzupZQBNIBRHRU7293-39-35 16:33:00 Test Item Value Reference Range Interpretation Comments Eosinophils (test code = 1.1 See_Comment [A utomated message] The Eosinophils) system which ge nerated this result tra nsmitted reference range : <=4.0. The reference r fermín was not used to int erpret this result as normal/abnormal . [facility] TexasXkydqwmJTQXHGTYRG1307-45-70 16:33:00 Test Item Value Reference Range Interpretation Comments Basophils (test code = 0.9 See_Comment [Aut omated message] The Basophils) system which ge nerated this result tra nsmitted reference range : <=1.0. The reference r fermín was not used to int erpret this result as normal/abnormal . [place] [address]-10-05 16:33:00 Test Item Value Reference Range Interpretation Comments Neutrophils # (test code = Neutrophils 4.7 1.5-8.1 #) [place] [address]-10-05 16:33:00 Test Item Value Reference Range Interpretation Comments Lymphocytes # (test code = Lymphocytes 0.7 1.0-5.5 #) [place] [address]-10-05 16:33:00 Test Item Value Reference Range Interpretation Comments Monocytes # (test code 0.4 See_Comment [Aut omated message] The = Monocytes #) system which generated this result tra nsmitted reference range : <=0.8. The reference r fermín was not used to int erpret this result as normal/abnormal . [address]10-05 16:33:00 Test Item Value Reference Range Interpretation Comments Eosinophils # (test code 0.1 See_Comment [A utomated message] The = Eosinophils #) system whic h generated this result tra nsmitted reference range : <=0.5. The reference r fermín was not used to int erpret this result as normal/abnormal . [place] [address]-10-05 16:33:00 Test Item Value Reference Range Interpretation Comments Basophils # (test code 0.1 See_Comment [Aut omated message] The = Basophils #) system which generated this result tra nsmitted reference range : <=0.2. The reference r fermín was not used to int erpret this result as normal/abnormal . [facility]2022-01-02 11:56:00 Test Item Value Reference Range Interpretation Comments Glucose Lvl (test code = Glucose Lvl) 94 70-99 [place] 997062-01-02 11:56:00 Test Item Value Reference Range Interpretation Comments BUN (test code = BUN) 12 7-22 [place] 997062-01-02 11:56:00 Test Item Value Reference Range Interpretation Comments Creatinine Lvl (test code = Creatinine 0.85 0.50-1.40 Lvl) [place] 997062-01-02 11:56:00 Test Item Value Reference Range Interpretation Comments Sodium Lvl (test code = Sodium Lvl) 146 135-145 [place] 997062-01-02 11:56:00 Test Item Value Reference Range Interpretation Comments Potassium Lvl (test code = Potassium 4.7 3.5-5.1 Lvl) [place] 997062-01-02 11:56:00 Test Item Value Reference Range Interpretation Comments Chloride Lvl (test code = Chloride Lvl) 113 95-109 [place] 997062-01-02 11:56:00 Test Item Value Reference Range Interpretation Comments CO2 (test code = CO2) 28 24-32 [place] 997062-01-02 11:56:00 Test Item Value Reference Range Interpretation Comments Calcium Lvl (test code = Calcium Lvl) 9.0 8.5-10.5 [place] 997062-01-02 11:56:00 Test Item Value Reference Range Interpretation Comments AGAP (test code = AGAP) 9.7 10.0-20.0 [place] 997062-01-02 11:56:00 Test Item Value Reference Range Interpretation Comments eGFR (test code = eGFR) 64 [place] 283582-01-02 11:56:00 Test Item Value Reference Range Interpretation Comments Segs (test code = Segs) 66.1 45.0-75.0 [place] 283582-01-02 11:56:00 Test Item Value Reference Range Interpretation Comments Lymphocytes (test code = Lymphocytes) 19.5 20.0-40.0 [place] 283582-01-02 11:56:00 Test Item Value Reference Range Interpretation Comments Monocytes (test code = Monocytes) 10.6 2.0-12.0 [place] [address]-01-02 11:56:00 Test Item Value Reference Range Interpretation Comments Eosinophils (test code = 2.9 See_Comment [A utomated message] The Eosinophils) system which ge nerated this result tra nsmitted reference range : <=4.0. The reference r fermín was not used to int erpret this result as normal/abnormal . [place] 283582-01-02 11:56:00 Test Item Value Reference Range Interpretation Comments Basophils (test code = 0.9 See_Comment [Aut omated message] The Basophils) system which ge nerated this result tra nsmitted reference range : <=1.0. The reference r fermín was not used to int erpret this result as normal/abnormal . [place] 283582-01-02 11:56:00 Test Item Value Reference Range Interpretation Comments Neutrophils # (test code = Neutrophils 3.4 1.5-8.1 #) [facility] TexasCmicskjJCVHBDCQFY6760-21-13 11:56:00 Test Item Value Reference Range Interpretation Comments Lymphocytes # (test code = Lymphocytes 1.0 1.0-5.5 #) [place] 283582-01-02 11:56:00 Test Item Value Reference Range Interpretation Comments Monocytes # (test code 0.5 See_Comment [Aut omated message] The = Monocytes #) system which generated this result tra nsmitted reference range : <=0.8. The reference r fermín was not used to int erpret this result as normal/abnormal . [place] 283582-01-02 11:56:00 Test Item Value Reference Range Interpretation Comments Eosinophils # (test code 0.2 See_Comment [A utomated message] The = Eosinophils #) system whic h generated this result tra nsmitted reference range : <=0.5. The reference r fermín was not used to int erpret this result as normal/abnormal . [facility] TexasNyrpkzzIDYFVAJOGL3855-88-59 11:56:00 Test Item Value Reference Range Interpretation Comments WBC (test code = WBC) 5.2 3.7-10.4 [place] 283582-01-02 11:56:00 Test Item Value Reference Range Interpretation Comments RBC (test code = RBC) 3.45 4.20-5.40 [place] 283582-01-02 11:56:00 Test Item Value Reference Range Interpretation Comments Hgb (test code = Hgb) 10.8 12.0-16.0 [place] [address]-01-02 11:56:00 Test Item Value Reference Range Interpretation Comments Hct (test code = Hct) 32.2 36.0-48.0 [place] 283582-01-02 11:56:00 Test Item Value Reference Range Interpretation Comments MCV (test code = MCV) 93.4 80.0-98.0 [place] [address]-01-02 11:56:00 Test Item Value Reference Range Interpretation Comments MCH (test code = MCH) 31.3 pg 27.0-31.0 [place] [address]-01-02 11:56:00 Test Item Value Reference Range Interpretation Comments MCHC (test code = MCHC) 33.5 32.0-36.0 [facility] DallasAyqqnmiCVHQMUWWYR2412-73-07 11:56:00 Test Item Value Reference Range Interpretation Comments RDW (test code = RDW) 14.4 11.5-14.5 [facility] DallasSxrvtqzSBNFIHVILU1638-61-40 11:56:00 Test Item Value Reference Range Interpretation Comments Platelet (test code = Platelet) 141 133-450 [facility] DallasHjialgzJYTUGJCZMX1631-63-60 11:56:00 Test Item Value Reference Range Interpretation Comments MPV (test code = MPV) 8.8 7.4-10.4 [facility]bergQpvpdsgQLCPCT4194-96-17 11:56:00 Test Item Value Reference Range Interpretation Comments Trig (test code = Trig) 58 [facility] DallasOcrxlthNGUALS4779-97-76 11:56:00 Test Item Value Reference Range Interpretation Comments Chol (test code = Chol) 154 [facility] DallasSbkflqwNRNVNG6806-96-19 11:56:00 Test Item Value Reference Range Interpretation Comments HDL (test code = HDL) 63 [facility] DallasFfseqocBZIFPW6295-22-37 11:56:00 Test Item Value Reference Range Interpretation Comments CHD Risk (test code = CHD Risk) 2.44 1 3.90-5.80 [facility] DallasMzmgdvrSKZEMQ7463-98-52 11:56:00 Test Item Value Reference Range Interpretation Comments LDL (Calculated) (test code = LDL 79 (Calculated)) [facility] DallasAgekaowOIIMBT6207-98-13 11:56:00 Test Item Value Reference Range Interpretation Comments VLDL (test code = VLDL) 12 1 [facility] [id number] 11:56:00 Test Item Value Reference Range Interpretation Comments Hgb A1C (test code = Hgb A1C) [facility]9 [facility] [id number] 08:33:00 Test Item Value Reference Range Interpretation Comments UA Turbidity (test code Slight *ABN*(05/08/21 = UA Turbidity) 2:33 AM) [facility] [id number] 08:33:00 Test Item Value Reference Range Interpretation Comments UA Spec Grav (test code = UA Spec 1.012 1 Grav) [facility] [id number] 08:33:00 Test Item Value Reference Range Interpretation Comments UA pH (test code = UA pH) 5.0 1 5.0-8.0 [facility] AND [id number] 08:33:00 Test Item Value Reference Range Interpretation Comments UA Protein (test code = UA Negative mg/dL Protein) [facility] AND [id number] 08:33:00 Test Item Value Reference Range Interpretation Comments UA Glucose (test code = UA Negative mg/dL Glucose) [facility] AND [id number] 08:33:00 Test Item Value Reference Range Interpretation Comments UA Ketones (test code = UA Negative mg/dL Ketones) [facility] AND [id number] 08:33:00 Test Item Value Reference Range Interpretation Comments UA Bili (test code = Negative *NA*(05/08/21 UA Bili) 2:33 AM) [facility] AND [id number] 08:33:00 Test Item Value Reference Range Interpretation Comments UA Blood (test code = Small *ABN*(05/08/21 UA Blood) 2:33 AM) [facility] AND [id number] 08:33:00 Test Item Value Reference Range Interpretation Comments UA Nitrite (test code Negative (05/08/21 2:33 = UA Nitrite) AM) [facility] AND [id number] 08:33:00 Test Item Value Reference Range Interpretation Comments UA Leuk Est (test code Large *ABN*(05/08/21 2:33 = UA Leuk Est) AM) [facility] AND [id number] 08:33:00 Test Item Value Reference Range Interpretation Comments UA Sq Epi (test code = UA Sq Occasional /LPF Epi) [facility] AND [id number] 08:33:00 Test Item Value Reference Range Interpretation Comments UA WBC (test code = 65 See_Comment [Automa kalie message] The UA WBC) system which ge nerated this result transmit kalie reference range : <=5. The reference range was not used to interpr et this result as sylvester l/abnormal. [facility] AND [id number] 08:33:00 Test Item Value Reference Range Interpretation Comments UA RBC (test code = 2 See_Comment [Automa kalie message] The UA RBC) system which ge nerated this result transmit kalie reference range : <=2. The reference range was not used to interpr et this result as sylvester l/abnormal. [facility] AND [id number] 08:33:00 Test Item Value Reference Range Interpretation Comments UA Color (test code = UA Color) Ltyellow [facility] AND [id number] 08:33:00 Test Item Value Reference Range Interpretation Comments UA Urobilinogen (test code = UA <=1.0 mg/dL 0.1-1.0 Urobilinogen) [facility] AND [id number] 20:23:00 Test Item Value Reference Range Interpretation Comments UA Turbidity (test code = Clear (05/07/21 2:23 UA Turbidity) PM) [facility] AND [id number] 20:23:00 Test Item Value Reference Range Interpretation Comments UA Spec Grav (test code = UA Spec 1.005 1 Grav) [facility] AND [id number] 20:23:00 Test Item Value Reference Range Interpretation Comments UA pH (test code = UA pH) 5.0 1 5.0-8.0 [facility] AND [id number] 20:23:00 Test Item Value Reference Range Interpretation Comments UA Protein (test code = UA Negative mg/dL Protein) [facility] AND [id number] 20:23:00 Test Item Value Reference Range Interpretation Comments UA Glucose (test code = UA Negative mg/dL Glucose) [facility] AND [id number] 20:23:00 Test Item Value Reference Range Interpretation Comments UA Ketones (test code = UA Negative mg/dL Ketones) [facility] AND [id number] 20:23:00 Test Item Value Reference Range Interpretation Comments UA Bili (test code = Negative *NA*(05/07/21 UA Bili) 2:23 PM) [facility] AND [id number] 20:23:00 Test Item Value Reference Range Interpretation Comments UA Blood (test code = Small *ABN*(05/07/21 UA Blood) 2:23 PM) [facility] AND [id number] 20:23:00 Test Item Value Reference Range Interpretation Comments UA Nitrite (test code Negative (05/07/21 2:23 = UA Nitrite) PM) [facility] AND [id number] 20:23:00 Test Item Value Reference Range Interpretation Comments UA Leuk Est (test code Trace *ABN*(05/07/21 2:23 = UA Leuk Est) PM) [facility] AND [id number] 20:23:00 Test Item Value Reference Range Interpretation Comments UA WBC (test code = 6 See_Comment [Automa kalie message] The UA WBC) system which ge nerated this result transmit kalie reference range : <=5. The reference range was not used to interpr et this result as sylvester l/abnormal. [facility] AND [id number] 20:23:00 Test Item Value Reference Range Interpretation Comments UA RBC (test code = no gt See_Comment [Automa kalie message] The UA RBC) system which ge nerated this result transmit kalie reference range : <=2. The reference range was not used to interpr et this result as sylvester l/abnormal. [facility] AND [id number] 20:23:00 Test Item Value Reference Range Interpretation Comments UA Hyal Cast (test 1 See_Comment [Automat ed message] The code = UA Hyal Cast) system which generated this result transmit kalie reference range : <=2. The reference range was not used to interpr et this result as sylvester l/abnormal. [facility] AND [id number] 20:23:00 Test Item Value Reference Range Interpretation Comments UA Sq Epi (test code = UA Sq Epi) None Seen [facility] AND [id number] 20:23:00 Test Item Value Reference Range Interpretation Comments UA Color (test code = UA Color) STRAW [facility] AND [id number] 20:23:00 Test Item Value Reference Range Interpretation Comments UA Urobilinogen (test code = UA <=1.0 mg/dL 0.1-1.0 Urobilinogen) [id number] 18:18:00 Test Item Value Reference Range Interpretation Comments PT (test code = PT) 14.1 s 12.0-14.7 [facility] [id number] 18:18:00 Test Item Value Reference Range Interpretation Comments INR (test code = INR) 1.10 1 0.85-1.17 [facility] [id number] 18:18:00 Test Item Value Reference Range Interpretation Comments PTT (test code = PTT) 22.9 s 22.9-35.8 [id number] 18:18:00 Test Item Value Reference Range Interpretation Comments Coronavirus (COVID-19) Not Detected (05/07/21 DIMAS (test code = 12:18 PM) Coronavirus (COVID-19) DIMAS) [facility] [id number] 18:09:00 Test Item Value Reference Range Interpretation Comments Total CK (test code = Total CK) 143 12-191 [facility] [id number] 18:09:00 Test Item Value Reference Range Interpretation Comments HS Troponin I (test code = HS Troponin 22.6 I) [facility]2022-01-01 18:09:00 Test Item Value Reference Range Interpretation Comments Glucose Lvl (test code = Glucose Lvl) 97 70-99 [facility]2022-01-01 18:09:00 Test Item Value Reference Range Interpretation Comments BUN (test code = BUN) 12 7-22 [facility]2022-01-01 18:09:00 Test Item Value Reference Range Interpretation Comments Creatinine Lvl (test code = Creatinine 0.91 0.50-1.40 Lvl) [facility]2022-01-01 18:09:00 Test Item Value Reference Range Interpretation Comments Sodium Lvl (test code = Sodium Lvl) 139 135-145 [facility]2022-01-01 18:09:00 Test Item Value Reference Range Interpretation Comments Potassium Lvl (test code = Potassium 4.2 3.5-5.1 Lvl) [facility]2022-01-01 18:09:00 Test Item Value Reference Range Interpretation Comments Chloride Lvl (test code = Chloride Lvl) 111 95-109 [facility]2022-01-01 18:09:00 Test Item Value Reference Range Interpretation Comments CO2 (test code = CO2) 22 24-32 [facility]2022-01-01 18:09:00 Test Item Value Reference Range Interpretation Comments Calcium Lvl (test code = Calcium Lvl) 9.3 8.5-10.5 [facility]2022-01-01 18:09:00 Test Item Value Reference Range Interpretation Comments AGAP (test code = AGAP) 10.2 10.0-20.0 [facility]2022-01-01 18:09:00 Test Item Value Reference Range Interpretation Comments eGFR (test code = eGFR) 60 [facility] [id number] 18:09:00 Test Item Value Reference Range Interpretation Comments WBC (test code = WBC) 4.8 3.7-10.4 [facility] [id number] 18:09:00 Test Item Value Reference Range Interpretation Comments RBC (test code = RBC) 4.21 4.20-5.40 [place] [id number] 18:09:00 Test Item Value Reference Range Interpretation Comments Hgb (test code = Hgb) 13.0 12.0-16.0 [place] [id number] 18:09:00 Test Item Value Reference Range Interpretation Comments Hct (test code = Hct) 39.5 36.0-48.0 [facility] TexasGaqupxvRPXRAJHLIV6495-95-19 18:09:00 Test Item Value Reference Range Interpretation Comments MCV (test code = MCV) 93.9 80.0-98.0 [place] [id number] 18:09:00 Test Item Value Reference Range Interpretation Comments MCH (test code = MCH) 30.9 pg 27.0-31.0 [facility] [id number] 18:09:00 Test Item Value Reference Range Interpretation Comments MCHC (test code = MCHC) 32.9 32.0-36.0 [place] [id number] 18:09:00 Test Item Value Reference Range Interpretation Comments RDW (test code = RDW) 14.1 11.5-14.5 [place] [id number] 18:09:00 Test Item Value Reference Range Interpretation Comments Platelet (test code = Platelet) 143 133-450 [facility] Tex[id number] 18:09:00 Test Item Value Reference Range Interpretation Comments MPV (test code = MPV) 8.3 7.4-10.4 [facility] Tex[id number] 18:09:00 Test Item Value Reference Range Interpretation Comments RBC Morph (test code = Normal (05/07/21 12:09 RBC Morph) PM) [facility] [id number] 18:09:00 Test Item Value Reference Range Interpretation Comments Plt Morph (test code = Normal (05/07/21 12:09 Plt Morph) PM) [facility] [id number] 18:09:00 Test Item Value Reference Range Interpretation Comments Segs (test code = Segs) 73.2 45.0-75.0 [facility] TexasBcbebdoMHZBXMJORW0530-44-71 18:09:00 Test Item Value Reference Range Interpretation Comments Lymphocytes (test code = Lymphocytes) 17.6 20.0-40.0 [facility] [id number] 18:09:00 Test Item Value Reference Range Interpretation Comments Monocytes (test code = Monocytes) 7.0 2.0-12.0 [facility] Tex[id number] 18:09:00 Test Item Value Reference Range Interpretation Comments Eosinophils (test code = 1.6 See_Comment [A utomated message] The Eosinophils) system which ge nerated this result tra nsmitted reference range : <=4.0. The reference r fermín was not used to int erpret this result as normal/abnormal . [facility] Tex[id number] 18:09:00 Test Item Value Reference Range Interpretation Comments Basophils (test code = 0.6 See_Comment [Aut omated message] The Basophils) system which ge nerated this result tra nsmitted reference range : <=1.0. The reference r fermín was not used to int erpret this result as normal/abnormal . [facility] TexasCmxhmazFCPQVPQVJZ0744-83-50 18:09:00 Test Item Value Reference Range Interpretation Comments Neutrophils # (test code = Neutrophils 3.5 1.5-8.1 #) [facility] TexasQtxpoqjQIERFRYJKP3717-10-55 18:09:00 Test Item Value Reference Range Interpretation Comments Lymphocytes # (test code = Lymphocytes 0.8 1.0-5.5 #) [place] [id number] 18:09:00 Test Item Value Reference Range Interpretation Comments Monocytes # (test code 0.3 See_Comment [Aut omated message] The = Monocytes #) system which generated this result tra nsmitted reference range : <=0.8. The reference r fermín was not used to int erpret this result as normal/abnormal . [facility] Tex[id number] 18:09:00 Test Item Value Reference Range Interpretation Comments Eosinophils # (test code 0.1 See_Comment [A utomated message] The = Eosinophils #) system Connect generated this result tra nsmitted reference range : <=0.5. The reference r fermín was not used to int erpret this result as normal/abnormal . [facility], DIGITAL, MAMMO, SCREENING, BILATERAL INCLUDING [id number] 16:10:00Diagnostic workup per radiologist?->YesReason for Exam:->screen #[id number] - MM, DIGITAL, MAMMO, SCREENING, BILATERAL INCLUDING CADBILATERAL DIGITAL SCREENING MAMMOGRAM WITH CAD: 01/16/2019Comparison is made to exams dated: 08/27/2017 mammogram and 07/10/2016 mammogram - [facility]. The tissue of both breasts is predominantly fatty. Current study was also evaluated with a Computer Aided Detection (CAD) system. There are benign calcifications in both breasts. No significant masses, calcifications, or other findings are seen in either breast. There has been no significant interval change. IMPRESSION: BENIGNThere is no mammographic evidence of malignancy. A 1 year screening mammogram is recommended. Hue Mcclain M.D. /penrad:01/16/2019 16:10:01 Normal Exam Mammogram BI-RADS: 2 Benign G0202 RAD, BONE DENSITY [id number] 14:21:00 Reason for Exam:->osteoporosisFINAL REPORT Bone Mineral Density Date: August 27, 2017 Comparison: No comparison Clinical History: Osteoporosis Screening Report: Bone Mineral Density Measurement: Lumbar Spine: 1.227 gm/gn2Imdy Femoral Neck: 0.773 gm/cm2 Standard Deviation as compared to the young adult population (T -score) Lumbar Spine: 0.4 Mean Femoral Neck: -1.9 Standard Deviation as compared to the age matched controls (Z-score) Lumbar Spine: 1.4Mean Femoral Neck: -0.3 These findings are consistent with a normal bone mineral density of the lumbar spine. There is no increased risk of an osteoporotic fracture of the lumbar spine as compared to the young adult population. 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 There is a 1-2 times increased risk of an osteoporotic fracture of the femoral neck as compared to the young adult population. Comment: Computer printout from the exam will follow this report.Degenerative changes are present with scoliosis. Sclerosis can increase the bone mineral density measurements artifactually. Signed: Ivana Henderson MDReport Verified Date/Time: 08/27/2017 14:21:55 Reading Location: [address] Radiology Reading Room MM, DIGITAL, MAMMO, SCREENING, BILATERAL INCLUDING [id number] 13:55:00Reason for Exam:- >screening for breast cancerMRN#: [id number] - MM, DIGITAL, MAMMO, SCREENING, BILATERAL INCLUDING CADBILATERAL DIGITAL SCREENING MAMMOGRAM WITH CAD: 08/27/2017CLINICAL: Routine screening mammogram. Comparison is made to exams dated: 07/10/2016 mammogram - [facility], 04/12/2015 mammogram, 02/18/2014 mammogram, and 12/29/2008 mammogram. There are scattered fibroglandular elements in both breasts that could obscure a lesion on mammography. Current study was also evaluated with a Computer Aided Detection (CAD) system. Benign appearing calcifications are present in both breasts. No significant masses, calcifications, or other findings are seen in either breast. There has been no significant interval change. IMPRESSION: BENIGNThere is no mammographic evidence of malignancy. A 1 year screening mammogram is recommended. Atif Gustafson M.D. ds/:08/27/2017 13:55:28 Normal Exam Mammogram BI-RADS: 2 Benign G0202
--- NOTE | 2022-06-15 18:32 | RAD REPORT ---
EXAM DESCRIPTION: RAD - Chest Single View - 06/15/2022 6:23 pm CLINICAL HISTORY: DYSPNEA Chest pain. COMPARISON: Chest Pa And Lat (2 Views) dated 06/08/2022 FINDINGS: Portable technique limits examination quality. Mild linear atelectasis is present left lung base. Early left basilar infiltrate is also a possibilit y. The lungs are otherwise clear. The heart is normal in size. No displaced fractures. IMPRESSION: Early left base pneumonia is possible.
[2022-06-15] MEDS ORDERED: NA CHLORIDE 0.9% 500 ML ONE (18:44)
[2022-06-15] MEDS ORDERED: ONDANSETRON 4 MG/2 ML VIAL ONE (18:46)
[2022-06-15 18:59] LABS: Absolute Lymphocytes (CBC) 0.8 K/uL (0.7-4.9); Hematocrit 44.5 % (36.0-45.0); Lymphocytes % 15.2 % (15.3-44.8); MCV 95.3 fL (80-100); MPV 8.9 fL (7.6-11.3); RBC Red Blood Cell Count 4.67 M/uL (3.86-4.86)
[2022-06-15 19:27] LABS: Albumin 3.9 g/dL (3.4-5.0); Bilirubin Total 0.5 mg/dL (0.2-1.0); Magnesium 2.1 mg/dL (1.6-2.4); Potassium 3.9 mmol/L (3.5-5.1); Protein, Total 7.9 g/dL (6.4-8.2); Troponin High Sensitivity 25.7 pg/mL (<58.9)
[2022-06-15 19:32] LABS: Thyroid Stimulating Hormone 36.5 uIU/mL (0.358-3.740)
--- NOTE | 2022-06-15 20:20 | EDPHYS ---
Physician Documentation [facility] Name: Yuly Villegas Age: 82 yrs Sex: Female : 1940 Arrival Date: 06/15/2022 Time: 18:07 Bed 8 Private MD: ED Physician Mark George HPI: 06/15 18:31 This 82 yrs old Female presents to ER via EMS with complaints of General Weakness. rt 18:31 Patient presents to the ED with a generalized weakness, fatigue, dry throat, poor p.o. rt intake over the past few days. She states that on her pulse oximeter, her heart rate will fluctuate from about 50 to about 115. She denies any pain but reports some nausea. She had 1 episode of vomiting yesterday. Denies other acute complaints at this time, symptoms are moderate in severity, no other aggravating or alleviating factors.. Historical: - Allergies: 18:10 Codeine; ap3 18:10 Ibuprofen; ap3 - Home Meds: 18:10 Acetaminophen Oral [Active]; Amiodarone Oral [Active]; Aspirin Oral [Active]; ap3 atorvastatin oral [Active]; dexlansoprazole 60 mg oral CpDB [Active]; docusate sodium 100 mg Oral cap [Active]; Eliquis 5 mg oral tab [Active]; glycopyrrolate 1 mg oral tab [Active]; levothyroxine 112 mcg cap [Active]; metoprolol tartrate 25 mg Oral tab [Active]; Oyster Shell Calcium 500 Oral [Active]; potassium chloride 20 mEq Oral pack [Active]; promethazine 25 mg Oral tab 1 tab [Active]; sertraline 100 mg oral tab [Active]; - PMHx: 18:10 Cerebrovascular accident; gastric ulcer; Hypothyroidism; Gastroesophageal reflux ap3 disease; dysphagia; hyperlipidemia; Depressive disorder; Hypertensive disorder; Atrial fibrillation; - Immunization history:: Client reports receiving the 2nd dose of the Covid vaccine. - Social history:: Smoking status: Patient denies any tobacco usage or history of. - Family history:: not pertinent. ROS: 18:31 ENT: Negative for injury, pain, and discharge, Cardiovascular: Negative for chest pain, rt palpitations, and edema, Respiratory: Negative for shortness of breath, cough, wheezing, and pleuritic chest pain, MS/Extremity: Negative for injury and deformity, Skin: Negative for injury, rash, and discoloration, Psych: Negative for depression, anxiety, suicide ideation, homicidal ideation, and hallucinations. 18:31 Constitutional: Positive for malaise, Negative for fever. 18:31 Abdomen/GI: Positive for nausea, vomiting, Negative for abdominal pain. 18:31 Neuro: Positive for weakness, Negative for altered mental status. Exam: 18:31 Constitutional: This is a well developed, well nourished patient who is awake, alert, rt and in no acute distress. Head/Face: Normocephalic, atraumatic. Chest/axilla: Normal chest wall appearance and motion. Nontender with no deformity. No lesions are appreciated. Cardiovascular: Regular rate and rhythm with a normal S1 and S2. No gallops, murmurs, or rubs. Normal PMI, no JVD. No pulse deficits. Respiratory: Lungs have equal breath sounds bilaterally, clear to auscultation and percussion. No rales, rhonchi or wheezes noted. No increased work of breathing, no retractions or nasal flaring. Abdomen/GI: Soft, non-tender, with normal bowel sounds. No distension or tympany. No guarding or rebound. No evidence of tenderness throughout. Skin: Warm, dry with normal turgor. Normal color with no rashes, no lesions, and no evidence of cellulitis. MS/ Extremity: Pulses equal, no cyanosis. Neurovascular intact. Full, normal range of motion. Neuro: Awake and alert, GCS 15, oriented to person, place, time, and situation. Cranial nerves II-XII grossly intact. Motor strength 5/5 in all extremities. Sensory grossly intact. Cerebellar exam normal. Normal gait. Psych: Awake, alert, with orientation to person, place and time. Behavior, mood, and affect are within normal limits. 18:31 ENT: Dry mucous membranes. 19:12 ECG was reviewed by the Attending Physician. rt Vital Signs: 18:08 BP 122 / 65; Pulse 69; Resp 19; Temp 98.3; Pulse Ox 99% ; ap3 18:44 BP 113 / 63; Pulse 64; Pulse Ox 98% on R/A; ap3 19:14 Weight 66.22 kg; ap3 20:00 BP 122 / 59; Pulse 61; Resp 15; Pulse Ox 99% on R/A; jb4 21:00 BP 121 / 65; Pulse 61; Resp 20; Pulse Ox 98% on R/A; jb4 22:14 BP 109 / 52; Pulse 63; Resp 14; Pulse Ox 95% on R/A; jb4 MDM: 18:13 Patient medically screened. rt 20:17 Differential Diagnosis sepsis, pneumonia, dehydration, weakness, UTI, COVID. Data rn reviewed: vital signs, nurses notes, lab test result(s), radiologic studies, plain films, and as a result, I will admit patient. Consideration of Admission/Observation Escalation of care including admission/observation considered. Management of patient was discussed with the following: Hospitalist: Discussed case and management with hospitalist service. . Counseling: I had a detailed discussion with the patient and/or guardian regarding: the historical points, exam findings, and any diagnostic results supporting the discharge/admit diagnosis, lab results, radiology results, the need for further work-up and treatment in the hospital. Response to treatment: the patient's symptoms have mildly improved after treatment, and as a result, I will admit patient. 06/15 18:12 Order name: CBC with Diff; Complete Time: 19:36 rt 06/15 18:12 Order name: CMP; Complete Time: 19:55 rt 06/15 18:12 Order name: Magnesium; Complete Time: 19:55 rt 06/15 18:12 Order name: Troponin High Sensitivity; Complete Time: 19:55 rt 06/15 18:12 Order name: BNP; Complete Time: 19:55 rt 06/15 18:12 Order name: Urine Microscopic Only rt 06/15 18:12 Order name: Chest Single View XRAY; Complete Time: 18:35 rt 06/15 18:12 Order name: TSH; Complete Time: 19:55 rt 06/15 19:05 Order name: Lactate w/ 2H reflex if indic.; Complete Time: 20:43 rt 06/15 19:05 Order name: Blood Culture Adult (2) rt 06/15 19:34 Order name: T4 Free; Complete Time: 19:55 EDMS 06/15 19:35 Order name: SARS RAPID; Complete Time: 20:43 kl 06/15 21:18 Order name: Chest Abdomen Pelvis W Con CT sb4 06/15 22:01 Order name: CT EDMS 06/15 18:12 Order name: EKG; Complete Time: 18:13 rt 06/15 18:12 Order name: EKG - Nurse/Tech; Complete Time: 19:10 rt EC:12 Rate is 60 beats/min. Rhythm is regular, Normal Sinus Rhythm with No ectopy. QRS Tippo rt is Normal. MI interval is normal. QRS interval is normal. QT interval is normal. Clinical impression: NSR w/ Non-specific ST/T Changes. Administered Medications: 19:10 Drug: NS 0.9% 500 ml Route: IV; Rate: bolus; Site: right antecubital; ap3 19:10 Drug: Zofran (Ondansetron) 4 mg Route: IVP; Site: right antecubital; ap3 21:08 Follow up: Response: No adverse reaction; Marked relief of symptoms jb4 21:00 Drug: Rocephin - (cefTRIAXone) 2 grams Route: IVPB; Infused Over: 30 mins; Site: right jb4 antecubital; 21:44 Drug: AZITHromycin 500 mg Route: IVPB; Infused Over: 1 hrs; Site: right antecubital; jb4 Disposition Summary: 06/15/22 20:19 Hospitalization Ordered Hospitalization Status: Observation rn Provider: Eligio Wu rn Location: Telemetry/MedSurg (observation) rn Condition: Stable rn Problem: new rn Symptoms: have improved rn Bed/Room Type: Standard rn Room Assignment: 205(06/15/22 20:58) [place] Diagnosis - Pneumonia, unspecified organism rn - Weakness rn - Dehydration rn Forms: - Medication Reconciliation Form rn - SBAR form rn Signatures: Dispatcher [employer] Diana Dumont RN RN kl Nieto, Roman, MD MD rn Bryson, James, TIFFANY [email or web address] Anna Coulter RN RN Nafisa Zheng PA-C PA-C sb4 [place], Ryan, MD MD rt Corrections: (The following items were deleted from the chart) 20:58 20:19 tiffany paul
--- NOTE | 2022-06-15 20:20 | ER ---
Nurse's Notes [facility] Name: Yuly Villegas Age: 82 yrs Sex: Female : 1940 Arrival Date: 06/15/2022 Time: 18:07 Bed 8 Private MD: Diagnosis: Pneumonia, unspecified organism;Weakness;Dehydration Presentation: 06/15 18:08 Chief complaint: Patient states: she has been feeling increasingly ill and week over ap3 the last few days. patient reports decrease in appetite as well over the last few days. Coronavirus screen: At this time, the client does not indicate any symptoms associated with coronavirus-19. Ebola Screen: No symptoms or risks identified at this time. Initial Sepsis Screen: Does the patient meet any 2 criteria? No. Patient's initial sepsis screen is negative. Does the patient have a suspected source of infection? No. Patient's initial sepsis screen is negative. Risk Assessment: Do you want to hurt yourself or someone else? Patient reports no desire to harm self or others. Onset of symptoms is unknown. 18:08 Method Of Arrival: EMS: [facility] ap3 18:08 Acuity: [place] 3 ap3 Triage Assessment: 18:19 General: Appears comfortable, Behavior is cooperative. General: Reports feeling ill for ap3 fatigue for. Pain: Complains of pain in abdomen. Neuro: Level of Consciousness is awake, alert, obeys commands, Oriented to person, place, time, situation, Speech is normal. Cardiovascular: Patient's skin is warm and dry. Respiratory: Airway is patent Trachea Respiratory effort is even, unlabored, Respiratory pattern is regular, symmetrical. GI: Reports anorexia. Musculoskeletal: Swelling present in right leg and left leg. Historical: - Allergies: 18:10 Codeine; ap3 18:10 Ibuprofen; ap3 - Home Meds: 18:10 Acetaminophen Oral [Active]; Amiodarone Oral [Active]; Aspirin Oral [Active]; ap3 atorvastatin oral [Active]; dexlansoprazole 60 mg oral CpDB [Active]; docusate sodium 100 mg Oral cap [Active]; Eliquis 5 mg oral tab [Active]; glycopyrrolate 1 mg oral tab [Active]; levothyroxine 112 mcg cap [Active]; metoprolol tartrate 25 mg Oral tab [Active]; Oyster Shell Calcium 500 Oral [Active]; potassium chloride 20 mEq Oral pack [Active]; promethazine 25 mg Oral tab 1 tab [Active]; sertraline 100 mg oral tab [Active]; - PMHx: 18:10 Cerebrovascular accident; gastric ulcer; Hypothyroidism; Gastroesophageal reflux ap3 disease; dysphagia; hyperlipidemia; Depressive disorder; Hypertensive disorder; Atrial fibrillation; - Immunization history:: Client reports receiving the 2nd dose of the Covid vaccine. - Social history:: Smoking status: Patient denies any tobacco usage or history of. - Family history:: not pertinent. Screenin:20 Abuse screen: Denies threats or abuse. Nutritional screening: No deficits noted. ap3 Tuberculosis screening: No symptoms or risk factors identified. Assessment: 19:00 Reassessment: Patient appears in no apparent distress at this time. Patient and/or jb4 family updated on plan of care and expected duration. Pain level reassessed. Patient is alert, oriented x 3, equal unlabored respirations, skin warm/dry/pink. 19:13 Reassessment: Sent a message to lab phone asking them to come draw blood cultures. vc1 20:00 Reassessment: Patient appears in no apparent distress at this time. Patient and/or jb4 family updated on plan of care and expected duration. Pain level reassessed. Patient is alert, oriented x 3, equal unlabored respirations, skin warm/dry/pink. 21:00 Reassessment: Patient appears in no apparent distress at this time. Patient and/or jb4 family updated on plan of care and expected duration. Pain level reassessed. Patient is alert, oriented x 3, equal unlabored respirations, skin warm/dry/pink. 22:14 Reassessment: Patient appears in no apparent distress at this time. Patient and/or jb4 family updated on plan of care and expected duration. Pain level reassessed. Patient is alert, oriented x 3, equal unlabored respirations, skin warm/dry/pink. attempted to call report, instructed to wait for call back. Vital Signs: 18:08 BP 122 / 65; Pulse 69; Resp 19; Temp 98.3; Pulse Ox 99% ; ap3 18:44 BP 113 / 63; Pulse 64; Pulse Ox 98% on R/A; ap3 19:14 Weight 66.22 kg; ap3 20:00 BP 122 / 59; Pulse 61; Resp 15; Pulse Ox 99% on R/A; jb4 21:00 BP 121 / 65; Pulse 61; Resp 20; Pulse Ox 98% on R/A; jb4 22:14 BP 109 / 52; Pulse 63; Resp 14; Pulse Ox 95% on R/A; jb4 ED Course: 18:07 Patient arrived in ED. ap3 18:09 Clark Ruiz MD is Attending Physician. rt 18:10 Triage completed. ap3 18:20 Arm band placed on right wrist. ap3 18:20 Patient has correct armband on for positive identification. Bed in low position. Call ap3 light in reach. Side rails up X2. leaf sucker operator on. Pulse ox on. NIBP on. Door closed. Noise minimized. Warm blanket given. 18:25 Chest Single View XRAY In Process Unspecified. EDMS 18:36 Anna Coulter, RN is Primary Nurse. ap3 18:40 Missed attempt(s): 22 gauge in right forearm. ap3 18:50 Initial lab(s) drawn, by nd, sent to lab. Inserted saline lock: 22 gauge in right iw antecubital area, using aseptic technique. Blood collected. 19:17 Attending Physician role handed off by Clark Ruiz MD rn 19:17 Mark George MD is Attending Physician. rn 20:18 Eligio Wu is Hospitalizing Provider. rn 21:00 Primary Nurse role handed off by Anna Coulter, TIFFANY wm 22:47 No provider procedures requiring assistance completed. Patient admitted, IV remains in jb4 place. Administered Medications: 19:10 Drug: NS 0.9% 500 ml Route: IV; Rate: bolus; Site: right antecubital; ap3 19:10 Drug: Zofran (Ondansetron) 4 mg Route: IVP; Site: right antecubital; ap3 21:08 Follow up: Response: No adverse reaction; Marked relief of symptoms jb4 21:00 Drug: Rocephin - (cefTRIAXone) 2 grams Route: IVPB; Infused Over: 30 mins; Site: right jb4 antecubital; 21:44 Drug: AZITHromycin 500 mg Route: IVPB; Infused Over: 1 hrs; Site: right antecubital; jb4 Medication: 18:20 VIS not applicable for this client. ap3 Outcome: 20:19 Decision to Hospitalize by Provider. rn 22:47 Admitted to Med/surg jb4 22:47 Condition: stable 22:47 Discharge instructions given to patient, Instructed on the need for admit, Demonstrated understanding of instructions. 22:49 Patient left the ED. jb4 Signatures: Dispatcher [employer] EDAnia Choe, Mark Shepherd RN, MD MD rn Bryson, James, RN RN jb4 Anna Coulter RN RN ap3 Susan Modi Vanessa, RN RN vc1 Clark Ruiz MD MD rt
[2022-06-15 20:24] LABS: SARS-CoV-2 Antigen Rapid Res Negative (Negative)
--- NOTE | 2022-06-15 20:42 | P.HP ---
Certification for Inpatient Patient admitted to: Inpatient With expected LOS: <2 Midnights Patient will require the following post-hospital care: None Practitioner: I am a practitioner with admitting privileges, knowledge of patient current condition, hospital course, and medical plan of care. Services: Services provided to patient in accordance with Admission requirements found in Title 42 Section 412.3 of the Code of Federal Regulations Patient History Date of Service: 06/16/22 Primary Care Provider: Don Reason for admission: Pneumonia, Weakness History of Present Illness: Patient is an 82 year old female with past medical history of CVA with left sided deficits, GERD, atrial fibrillation, hypertension who presented to the emergency department with complaints of generalized weakness, nausea, decreased PO intake. Patient resides at [facility] for rehabilitation, but staff has noticed that she been declining over the past few days. Daughter states she has lost 18 pounds this past month. She has been seeing Dr. Sullivan who is planning for an endoscopy next week. Vital signs have been stable today. Labs significant for BUN 19, creatinine 1.26, AST 58, BNP 587, TSH 36. Chest xray showed "Early left base pneumonia is possible." CT chest/abdomen/pelvis showed "Cholelithiasis. Moderate stool retained throughout the colon. Moderate hiatal hernia." She was started on antibiotics and given IV fluids in the emergency department. Patient is admitted for further management. 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 - Family History Family History: Reviewed- Non-Contributory - Social History Smoking Status: Never smoker Alcohol use: No CD- Drugs: No Caffeine use: Yes Place of Residence: Home Review of Systems General: Weakness Respiratory: Shortness of Breath Gastrointestinal: Nausea, Vomiting Physical Examination - Vital Signs Temperature: 98.3 F Blood Pressure: 113/63 Pulse: 64 Respirations: 19 Pulse Ox (%): 98 - Physical Exam General: Alert, In no apparent distress HEENT: Atraumatic, EOMI, Sclerae nonicteric Neck: Supple, 2+ carotid pulse no bruit Respiratory: Clear to auscultation bilaterally, Normal air movement Cardiovascular: Regular rate/rhythm, Normal S1 S2 Gastrointestinal: Normal bowel sounds, No tenderness Musculoskeletal: No tenderness Integumentary: No rashes Neurological: Sensation intact, Normal affect, Abnormal speech, Abnormal strength - Studies Laboratory Data (last 24 hrs) 06/15/22 18:45: Sodium 137, Potassium 3.9, BUN 19 H, Creatinine 1.26 H, Glucose 87, Magnesium 2.1, Total Bilirubin 0.5, AST 58 H, ALT 37, Alkaline Phosphatase 55 06/15/22 18:45: WBC 5.20, Hgb 14.7, Hct 44.5, Plt Count 153 Assessment and Plan - Problems (Diagnosis) (1) Pneumonia Current Visit: Yes Status: Acute Qualifiers: Pneumonia type: due to unspecified organism Laterality: right Lung location: lower lobe of lung Qualified Code(s): J18.9 - Pneumonia, unspecified organism (2) Weakness Current Visit: Yes Status: Acute (3) Hypertension Current Visit: Yes Status: Chronic Qualifiers: Hypertension type: primary hypertension Qualified Code(s): I10 - Essential (primary) hypertension (4) GERD (gastroesophageal reflux disease) Current Visit: Yes Status: Chronic Qualifiers: Esophagitis presence: without esophagitis Qualified Code(s): K21.9 - Gastro-esophageal reflux disease without esophagitis (5) Atrial fibrillation Current Visit: Yes Status: Chronic Qualifiers: Atrial fibrillation type: paroxysmal Qualified Code(s): I48.0 - Paroxysmal atrial fibrillation - Plan Patient is admitted for further management of generalized weakness, questionable pneumonia. Continue IV hydration, consult PT, encourage PO intake with easy to chew diet. Patient has dysphagia but denies any episodes of choking on food. Mild concern for aspiration PNA. Will continue antibiotics for now. Monitor and replete electrolytes per protocol. Reconcile and continue home medications. Home eliquis for VTE prophylaxis. Full code. Discharge Plan: Assisted Plan to discharge in: 48 Hours - Advance Directives Does patient have a Living Will: No Does patient have a Durable POA for Healthcare: No - Code Status/Comfort Care Code Status Assessed: Yes Code Status: Full Code Physician Review: Patient Assessed, Agree with Above Assessment and Plan Critical Care: No Time Spent Managing Pts Care (In Minutes): 50
[2022-06-15] MEDS ORDERED: CEFTRIAXONE 1000 MG/VIAL ONE ×2 (20:50→21:00)
[2022-06-15] MEDS ORDERED: AZITHROMYCIN 500 MG INJ IVPB ONE ×2 (20:51→21:41)
[2022-06-15] MEDS ORDERED: NA CHLORIDE 0.9% 0 ML ONE (20:51)
[2022-06-15] MEDS ORDERED: NA CHLORIDE 0.9% 100 ML ONE (20:52)
[2022-06-15] MEDS ORDERED: NA CHLORIDE 0.9% 250 ML ONE (21:41)
--- NOTE | 2022-06-15 22:00 | RAD REPORT ---
EXAM DESCRIPTION: CT - Chest Abdomen Pelvis W Cont - 06/15/2022 9:52 pm CLINICAL HISTORY: Chest and abdomen pain. PAIN COMPARISON: No comparisons TECHNIQUE: Approximately 100 mL nonionic IV contrast was administered to the patient. All CT scans are performed using dose optimization technique as appropriate and may include automated exposure control or mA/KV adjustment according to patient size. FINDINGS: Mild atelectasis is present in the posterior left lung base. The lungs are otherwise clear .No pleural or pericardial effusion.No intrathoracic adenopathy.Moderate hiatal hernia. The liver, spleen, pancreas, adrenal glands and kidneys are within normal limits. Cholelithiasis. No bowel obstruction, free air, free fluid or abscess. Significant stool is present throughout the co regulo. Mild sigmoid diverticulosis coli without diverticulitis. No pathologic lymphadenopathy in the a bdomen or pelvis. Moderate lumbar degenerative changes with mild scoliosis curvature. IMPRESSION: Cholelithiasis. Moderate stool retained throughout the colon. Moderate hiatal hernia.
[2022-06-15] MEDS ORDERED: ALBUTEROL 2.5 MG/3 ML NEB SOL NEB PRN (23:21)
[2022-06-15] MEDS ORDERED: IPRATROPIUM BROM 0.5MG/2.5ML NEB PRN (23:21)
[2022-06-15] MEDS ORDERED: ACETAMINOPHEN 500 MG TAB PO PRN (23:21)
[2022-06-15 23:30] VITALS: BMI 24.7
[2022-06-15] MEDS: NA CHLORIDE 0.9% 1,000 ML IV SCH (23:45)
[2022-06-16] MEDS ORDERED: LACTULOSE 20 GM/30 ML UCUP PO ONE (00:21)
[2022-06-16 05:20] LABS: Urine Bacteria <20 /HPF (<20); Urine Mucus Slight /HPF (None Seen)
[2022-06-16 07:58] LABS: Absolute Lymphocytes (CBC) 0.8 K/uL (0.7-4.9); Hematocrit 39.9 % (36.0-45.0); Lymphocytes % 14.9 % (15.3-44.8); MCV 96.6 fL (80-100); MPV 9.2 fL (7.6-11.3); RBC Red Blood Cell Count 4.13 M/uL (3.86-4.86)
[2022-06-16] MEDS: APIXABAN 5 MG TABLET PO SCH ×2 (09:06→21:22)
[2022-06-16] MEDS ORDERED: ALBUTEROL 2.5 MG/3 ML NEB SOL NEB PRN (12:00)
--- NOTE | 2022-06-16 12:06 | P.PN ---
Subjective Date of Service: 06/16/22 Primary Care Provider: Don Chief Complaint: Pneumonia, Weakness Patient reports generalized weakness, loss of appetite. She reports occasional nonproductive cough. No fever. Physical Examination - Vital Signs Temperature: 97.3 F Blood Pressure: 133/55 Pulse: 57 Respirations: 16 Pulse Ox (%): 99 - Studies Laboratory Data (last 24 hrs) 06/15/22 18:45: Sodium 137, Potassium 3.9, BUN 19 H, Creatinine 1.26 H, Glucose 87, Magnesium 2.1, Total Bilirubin 0.5, AST 58 H, ALT 37, Alkaline Phosphatase 55 06/15/22 18:45: WBC 5.20, Hgb 14.7, Hct 44.5, Plt Count 153 Assessment And Plan - Current Problems (Diagnosis) (1) Acute cystitis without hematuria Current Visit: Yes Status: Acute (2) Hypothyroidism Current Visit: Yes Status: Acute (3) Generalized weakness Current Visit: Yes Status: Acute (4) Impaired mobility Current Visit: Yes Status: Acute (5) Atrial fibrillation Current Visit: Yes Status: Chronic Qualifiers: Atrial fibrillation type: paroxysmal Qualified Code(s): I48.0 - Paroxysmal atrial fibrillation (6) Hypertension Current Visit: Yes Status: Chronic Qualifiers: Hypertension type: primary hypertension Qualified Code(s): I10 - Essential (primary) hypertension - Plan Physical Exam General: Alert, In no apparent distress, alert and oriented x3. Neck: Supple, no elevated JVD. Respiratory: Clear to auscultation bilaterally, Normal air movement Cardiovascular: Regular rate/rhythm, Normal S1 S2 Gastrointestinal: Normal bowel sounds, No tenderness Musculoskeletal: No tenderness Integumentary: No rashes Neurological: Sensation intact, Normal affect, no focal motor deficit. Plan: IV antibiotics, follow cultures. IV hydration. Increase home dose Synthroid from 88 mcg to 112 mg daily. I doubt patient has pneumonia. Continue home medications for atrial fibrillation and stroke. PT . Diet as tolerated.
[2022-06-16] MEDS: NA CHLORIDE 0.9% 1,000 ML IV SCH (14:52)
[2022-06-16 18:48] LABS: Specific Gravity > 1.030 (1.005-1.030); Urine Bacteria 20-50 /HPF (<20); Urine Bilirubin NEGATIVE (Negative); Urine Blood Negative (Negative); Urine Clarity Clear (Clear); Urine Color Light-Yellow (Yellow); Urine Glucose NEGATIVE (Negative); Urine Mucus Slight /HPF (None Seen); Urine Protein NEGATIVE (Negative); Urine RBC <5 /HPF (None Seen); Urine Urobilinogen Normal (Normal); Urine pH 5.5 (5.0-7.0)
[2022-06-16] MEDS: HOME MED 1 EA UNK (Cyclosporine [Restasis] Droperette) OPTH SCH (21:00)
[2022-06-16] MEDS ORDERED: AZITHROMYCIN IV 500 MG in NA CHLORIDE 0.9% 250 ML IVPB SCH (21:00)
[2022-06-16] MEDS ORDERED: APIXABAN 5 MG TABLET PO SCH (21:00)
[2022-06-16] MEDS: AMIODARONE HCL 200 MG TAB PO SCH (21:22)
[2022-06-16] MEDS: SERTRALINE HCL 100 MG TAB PO SCH (21:22)
[2022-06-16] MEDS: ATORVASTATIN 40 MG TAB PO SCH (21:22)
[2022-06-16] MEDS: CEFTRIAXONE 1,000 MG in NA CHLORIDE 0.9% 50 ML IVPB SCH (21:23)
[2022-06-16] MEDS: ONDANSETRON 4 MG/2 ML VIAL IV PRN (22:16)
[2022-06-17] MEDS: NA CHLORIDE 0.9% 1,000 ML IV SCH ×2 (02:01→09:16)
[2022-06-17] MEDS: LEVOTHYROXINE SOD 0.112 MG TAB PO SCH (05:16)
[2022-06-17] MEDS: ONDANSETRON 4 MG/2 ML VIAL IV PRN ×2 (05:26→20:29)
[2022-06-17 06:37] LABS: Absolute Lymphocytes (CBC) 0.7 K/uL (0.7-4.9); Hematocrit 38.5 % (36.0-45.0); Lymphocytes % 12.5 % (15.3-44.8); MCV 98.4 fL (80-100); MPV 9.9 fL (7.6-11.3); RBC Red Blood Cell Count 3.91 M/uL (3.86-4.86)
[2022-06-17 07:33] LABS: Potassium 4.6 mmol/L (3.5-5.1)
[2022-06-17] MEDS: HOME MED 1 EA UNK (Cyclosporine [Restasis] Droperette) OPTH SCH ×2 (09:00→20:09)
[2022-06-17] MEDS: METOPROLOL XL 25 MG TAB PO SCH (09:00)
[2022-06-17] MEDS ORDERED: PANTOPRAZOLE 40MG TABLET PO SCH (09:00)
[2022-06-17] MEDS ORDERED: HOME MED 1 EA UNK (Dexlansoprazole [Dexilant] 30 MG Cap.Dr.Bp) PO SCH (09:00)
[2022-06-17] MEDS: DOCUSATE NA 100 MG CAP PO SCH (09:17)
[2022-06-17] MEDS: SERTRALINE HCL 100 MG TAB PO SCH ×2 (09:18→20:29)
[2022-06-17] MEDS: PANTOPRAZOLE 40MG TABLET PO SCH ×2 (09:18→20:29)
[2022-06-17] MEDS: APIXABAN 5 MG TABLET PO SCH ×2 (09:18→20:29)
[2022-06-17] MEDS: AMIODARONE HCL 200 MG TAB PO SCH ×2 (09:18→20:29)
[2022-06-17] MEDS: ASPIRIN EC 81 MG TAB PO SCH (09:18)
[2022-06-17] MEDS: MAGNES/ALUMIN/SIMET 30ML UCUP PO SCH ×2 (09:20→13:23)
--- NOTE | 2022-06-17 13:44 | P.PN ---
Subjective Date of Service: 06/17/22 Primary Care Provider: Don Chief Complaint: Pneumonia, Weakness Patient developed urinary retention last night had a Rogers cath in placed She denies any cough today No fever. She reports nausea but no vomiting. Physical Examination - Vital Signs Temperature: 98.2 F Blood Pressure: 112/48 Pulse: 66 Respirations: 16 Pulse Ox (%): 95 Assessment And Plan - Current Problems (Diagnosis) (1) Acute cystitis without hematuria Current Visit: Yes Status: Acute (2) Hypothyroidism Current Visit: Yes Status: Acute (3) Generalized weakness Current Visit: Yes Status: Acute (4) Impaired mobility Current Visit: Yes Status: Acute (5) Atrial fibrillation Current Visit: Yes Status: Chronic Qualifiers: Atrial fibrillation type: paroxysmal Qualified Code(s): I48.0 - Paroxysmal atrial fibrillation (6) Hypertension Current Visit: Yes Status: Chronic Qualifiers: Hypertension type: primary hypertension Qualified Code(s): I10 - Essential (primary) hypertension (7) GERD (gastroesophageal reflux disease) Current Visit: Yes Status: Chronic Qualifiers: Esophagitis presence: without esophagitis Qualified Code(s): K21.9 - Gastro-esophageal reflux disease without esophagitis - Plan Physical Exam General: Alert, In no apparent distress, alert and oriented x3. Neck: Supple, no elevated JVD. Respiratory: Clear to auscultation bilaterally, Normal air movement Cardiovascular: Regular rate/rhythm, Normal S1 S2 Gastrointestinal: Normal bowel sounds, No tenderness Musculoskeletal: No tenderness Integumentary: No rashes Neurological: Sensation intact, Normal affect, no focal motor deficit. Plan: Urine culture shows no growth. UA highly indicated UTI. I doubt patient has pneumonia. Continue IV Rocephin. Discontinue azithromycin. Patient with functional constipation. I suspect functional constipation and GERD contributing to her nausea. Started patient on Protonix twice daily and Maalox as needed. Will treat constipation with laxatives and stool softeners. IV hydration. Home dose Synthroid increased from 88 mcg to 112 mg daily. Continue home medications for atrial fibrillation and stroke. Continue PT . Diet as tolerated. Supportive measures with antiemetics. Physician Review: Patient Assessed, Agree with Above Assessment and Plan
[2022-06-17] MEDS: MAGNESIUM HYDROXIDE 8% 30 ML PO SCH ×2 (15:23→20:29)
[2022-06-17] MEDS: SENOSIDES 8.6 MG TAB PO SCH (20:28)
[2022-06-17] MEDS: CEFTRIAXONE 1,000 MG in NA CHLORIDE 0.9% 50 ML IVPB SCH (20:29)
[2022-06-17] MEDS: ATORVASTATIN 40 MG TAB PO SCH (20:29)
[2022-06-18] MEDS: NA CHLORIDE 0.9% 1,000 ML IV SCH ×2 (04:41→19:31)
[2022-06-18] MEDS: LEVOTHYROXINE SOD 0.112 MG TAB PO SCH (05:15)
[2022-06-18 07:11] LABS: Absolute Lymphocytes (CBC) 0.8 K/uL (0.7-4.9); Hematocrit 33.8 % (36.0-45.0); Lymphocytes % 18.1 % (15.3-44.8); MCV 97.4 fL (80-100); MPV 9.4 fL (7.6-11.3); RBC Red Blood Cell Count 3.47 M/uL (3.86-4.86)
[2022-06-18] MEDS: HOME MED 1 EA UNK (Cyclosporine [Restasis] Droperette) OPTH SCH ×2 (09:00→21:00)
[2022-06-18] MEDS: METOPROLOL XL 25 MG TAB PO SCH (09:00)
[2022-06-18] MEDS: MAGNESIUM HYDROXIDE 8% 30 ML PO SCH ×3 (09:26→21:40)
[2022-06-18] MEDS: SERTRALINE HCL 100 MG TAB PO SCH ×2 (09:28→21:41)
[2022-06-18] MEDS: SENOSIDES 8.6 MG TAB PO SCH ×2 (09:28→21:41)
[2022-06-18] MEDS: AMIODARONE HCL 200 MG TAB PO SCH ×2 (09:29→21:41)
[2022-06-18] MEDS: PANTOPRAZOLE 40MG TABLET PO SCH ×2 (09:29→21:41)
[2022-06-18] MEDS: DOCUSATE NA 100 MG CAP PO SCH (09:29)
[2022-06-18] MEDS: ASPIRIN EC 81 MG TAB PO SCH (09:31)
[2022-06-18] MEDS: APIXABAN 5 MG TABLET PO SCH ×2 (09:31→21:00)
--- NOTE | 2022-06-18 12:10 | P.PN ---
Subjective Date of Service: 06/18/22 Primary Care Provider: Don Chief Complaint: Pneumonia, Weakness Patient denies any complaint today. She has had no fever. No issues overnight Physical Examination - Vital Signs Temperature: 97.5 F Blood Pressure: 116/56 Pulse: 66 Respirations: 16 Pulse Ox (%): 97 Assessment And Plan - Current Problems (Diagnosis) (1) Acute cystitis without hematuria Current Visit: Yes Status: Acute (2) Hypothyroidism Current Visit: Yes Status: Acute (3) Generalized weakness Current Visit: Yes Status: Acute (4) Impaired mobility Current Visit: Yes Status: Acute (5) Atrial fibrillation Current Visit: Yes Status: Chronic Qualifiers: Atrial fibrillation type: paroxysmal Qualified Code(s): I48.0 - Paroxysmal atrial fibrillation (6) Hypertension Current Visit: Yes Status: Chronic Qualifiers: Hypertension type: primary hypertension Qualified Code(s): I10 - Essential (primary) hypertension (7) GERD (gastroesophageal reflux disease) Current Visit: Yes Status: Chronic Qualifiers: Esophagitis presence: without esophagitis Qualified Code(s): K21.9 - Gastro-esophageal reflux disease without esophagitis - Plan Physical Exam General: Alert, In no apparent distress, alert and oriented x3. Respiratory: Clear to auscultation bilaterally, Normal air movement Cardiovascular: Regular rate/rhythm, Normal S1 S2 Gastrointestinal: Normal bowel sounds, No tenderness Musculoskeletal: No tenderness Integumentary: No rashes Neurological: No focal motor deficit. Plan: Urine culture shows no growth. UA highly indicated UTI. I doubt patient has pneumonia. Continue IV Rocephin. Discontinue azithromycin. Patient with functional constipation. I suspect functional constipation and GERD contributing to her nausea. Started patient on Protonix twice daily. Continue laxatives and stool softeners. IV hydration until her oral intake improves. Home dose Synthroid increased from 88 mcg to 112 mg daily. Continue home medications for atrial fibrillation and stroke. Continue PT. Diet as tolerated.
[2022-06-18] MEDS: ONDANSETRON 4 MG/2 ML VIAL IV PRN ×2 (12:58→21:40)
[2022-06-18] MEDS: ATORVASTATIN 40 MG TAB PO SCH (21:41)
[2022-06-18] MEDS: CEFTRIAXONE 1,000 MG in NA CHLORIDE 0.9% 50 ML IVPB SCH (21:42)
[2022-06-19] MEDS: ONDANSETRON 4 MG/2 ML VIAL IV PRN ×2 (03:18→21:23)
[2022-06-19 03:59] LABS: Absolute Lymphocytes (CBC) 1.1 K/uL (0.7-4.9); Hematocrit 35.3 % (36.0-45.0); Lymphocytes % 21.1 % (15.3-44.8); MCV 95.9 fL (80-100); MPV 9.1 fL (7.6-11.3); RBC Red Blood Cell Count 3.68 M/uL (3.86-4.86)
[2022-06-19] MEDS: LEVOTHYROXINE SOD 0.112 MG TAB PO SCH (05:41)
[2022-06-19] MEDS: APIXABAN 5 MG TABLET PO SCH ×2 (09:00→20:56)
[2022-06-19] MEDS: DOCUSATE NA 100 MG CAP PO SCH (09:00)
[2022-06-19] MEDS: HOME MED 1 EA UNK (Cyclosporine [Restasis] Droperette) OPTH SCH ×2 (09:00→20:56)
[2022-06-19] MEDS: SENOSIDES 8.6 MG TAB PO SCH ×2 (09:00→20:56)
[2022-06-19] MEDS: PANTOPRAZOLE 40MG TABLET PO SCH ×2 (09:00→20:56)
[2022-06-19] MEDS: MAGNESIUM HYDROXIDE 8% 30 ML PO SCH (09:00)
[2022-06-19] MEDS: SERTRALINE HCL 100 MG TAB PO SCH ×2 (09:00→20:56)
[2022-06-19] MEDS: METOPROLOL XL 25 MG TAB PO SCH (09:00)
[2022-06-19] MEDS: AMIODARONE HCL 200 MG TAB PO SCH ×2 (09:00→20:56)
[2022-06-19] MEDS: ASPIRIN EC 81 MG TAB PO SCH (09:00)
[2022-06-19] MEDS: NA CHLORIDE 0.9% 1,000 ML IV SCH ×2 (11:30→20:57)
[2022-06-19] MEDS ORDERED: propofoL 200 MG/20 ML VIAL IV ONE ×2 (13:22→14:16)
[2022-06-19] MEDS ORDERED: LIDOCAINE 1% MPF 5 ML VIAL ONE (13:22)
[2022-06-19] MEDS ORDERED: EPINEPHRINE/PF 1 MG/ML AMP ONE (13:49)
--- NOTE | 2022-06-19 14:18 | P.PN ---
Subjective Date of Service: 06/19/22 Primary Care Provider: Don Chief Complaint: Pneumonia, Weakness Patient with poor oral intake. She has had no fever. No issues overnight. She reports no bowel movement for several days. Physical Examination - Vital Signs Temperature: 98.6 F Blood Pressure: 127/56 Pulse: 64 Respirations: 16 Pulse Ox (%): 95 Assessment And Plan - Current Problems (Diagnosis) (1) Acute cystitis without hematuria Current Visit: Yes Status: Acute (2) Hypothyroidism Current Visit: Yes Status: Acute (3) Generalized weakness Current Visit: Yes Status: Acute (4) Impaired mobility Current Visit: Yes Status: Acute (5) Atrial fibrillation Current Visit: Yes Status: Chronic Qualifiers: Atrial fibrillation type: paroxysmal Qualified Code(s): I48.0 - Paroxysmal atrial fibrillation (6) Hypertension Current Visit: Yes Status: Chronic Qualifiers: Hypertension type: primary hypertension Qualified Code(s): I10 - Essential (primary) hypertension (7) GERD (gastroesophageal reflux disease) Current Visit: Yes Status: Chronic Qualifiers: Esophagitis presence: without esophagitis Qualified Code(s): K21.9 - Gastro-esophageal reflux disease without esophagitis - Plan Physical Exam General: Alert, In no apparent distress, alert and oriented x3. Respiratory: Clear to auscultation bilaterally, Normal air movement Cardiovascular: Regular rate/rhythm, Normal S1 S2 Gastrointestinal: Normal bowel sounds, No tenderness Musculoskeletal: No tenderness Integumentary: No rashes Neurological: No focal motor deficit. Plan: Urine culture shows no growth. UA highly indicated UTI. I doubt patient has pneumonia. Continue IV Rocephin. Patient to complete 5 days of treatment. She was on azithromycin for possible pneumonia which has been discontinued. Patient with functional constipation. I suspect functional constipation and GERD contributing to her nausea. Continue protonix. Patient with a prior history of hiatal hernia. GI Dr. Sullivan consulted. Dr. Sullivan scheduled patient for EGD today. Continue laxatives and stool softeners. Trial of lactulose after EGD today Continue IV hydration until her oral intake improves. Home dose Synthroid increased from 88 mcg to 112 mg daily. Continue home medications for atrial fibrillation and stroke. Activity as tolerated Continue PT. Diet as tolerated. Disposition: Anticipating acute rehab versus home with home health.
[2022-06-19] MEDS: ATORVASTATIN 40 MG TAB PO SCH (20:56)
[2022-06-19] MEDS: CEFTRIAXONE 1,000 MG in NA CHLORIDE 0.9% 50 ML IVPB SCH (20:57)
[2022-06-19] MEDS: LACTULOSE 20 GM/30 ML UCUP PO SCH (20:58)
[2022-06-20] MEDS: LACTULOSE 20 GM/30 ML UCUP PO SCH ×2 (03:38→11:00)
[2022-06-20] MEDS: LEVOTHYROXINE SOD 0.112 MG TAB PO SCH (06:14)
--- NOTE | 2022-06-20 08:00 | OP ---
Date of Procedure: 06/19/2022 Surgeon: Wellington Sullivan MD Procedures: Upper endoscopy, esophagogastroduodenoscopy. Indications For Procedure: Persistent nausea, vomiting and dysphagia with history of hear tburn, reflux. Medications: Per Anesthesia. Procedure In Detail: Patient was placed in left lateral position. Bite block was inserted. Endosco pe was placed in the oropharynx and extended all the way to the third portion of the duodenum. performed with retroflexion views obtained. Findings: Included a medium-sized hiatal hernia, some small amount of retained food and approximatel y 4-5 partially digested pills retained in the stomach and there was some mild gastritis in the antru m, status post biopsies. Impression: 1.Medium-sized hiatal hernia. 2.Small amount of retained food in the body of stomach with 4-5 partially digested pills. 3.Mild gastritis in the antrum, status post biopsies. Recommendations: 1.Await biopsy results. 2.PPI therapy. 3.Check gastric emptying study. BRAEDEN/CITLALLIL Voice ID: [id number] Report ID: [id number]
[2022-06-20] MEDS: SERTRALINE HCL 100 MG TAB PO SCH ×2 (09:00→21:27)
[2022-06-20] MEDS: DOCUSATE NA 100 MG CAP PO SCH (09:00)
[2022-06-20] MEDS: METOPROLOL XL 25 MG TAB PO SCH (09:00)
[2022-06-20] MEDS: HOME MED 1 EA UNK (Cyclosporine [Restasis] Droperette) OPTH SCH ×2 (09:00→21:00)
[2022-06-20] MEDS: ASPIRIN EC 81 MG TAB PO SCH (09:00)
[2022-06-20] MEDS: AMIODARONE HCL 200 MG TAB PO SCH ×2 (09:00→21:27)
[2022-06-20] MEDS: APIXABAN 5 MG TABLET PO SCH ×2 (09:00→21:28)
[2022-06-20] MEDS: PANTOPRAZOLE 40MG TABLET PO SCH ×2 (09:00→21:28)
[2022-06-20] MEDS: SENOSIDES 8.6 MG TAB PO SCH ×2 (09:00→21:27)
[2022-06-20] MEDS: NA CHLORIDE 0.9% 1,000 ML IV SCH ×2 (10:01→23:21)
--- NOTE | 2022-06-20 16:44 | RAD REPORT ---
EXAM DESCRIPTION: NM - Gastric Emptying Study - 06/20/2022 4:18 pm CLINICAL HISTORY: Abdominal pain COMPARISON: None. TECHNIQUE: The patient was administered approximately 1 mCi Tc 99m sulfur colloid in solid egg meal. Imaging of the left upper quadrant was performed with time/activity curve generated. FINDINGS: Cine-loop images show normal progression of the radiopharmaceutical from the stomach into the small bowel. Time to one-half activity is 87 minutes, normal. No other significant findings. IMPRESSION: Normal gastric emptying study.
--- NOTE | 2022-06-20 17:31 | EKG ---
Test Date: 2022-06-15 Test Time: 19:07:50 Bread Baker: ALP MEASUREMENT RESULTS: Intervals: Rate: 60 NJ: 198 QRSD: 82 QT: 478 QTc: 478 Warren: P: 56 NJ: 198 QRS: -24 T: 38 INTERPRETIVE STATEMENTS: Normal sinus rhythm Inferior infarct, age undetermined Anterior infarct, age undetermined Abnormal ECG No previous ECG available for comparison Electronically Signed On 06-20-22 17:19:05 [employer] by Curly Mcdonald
--- NOTE | 2022-06-20 20:38 | P.PN ---
Date of Service: 06/20/22 Subjective: NPO overnight, for gastric emptying study scope yesterday, no significant improvemen ROS: A complete review of systems was performed and is negative except as mentioned above Physical Exam: Gen: AOx3, fatigued appearing HEENT: normal conjunctiva, sclera anicteric CV: regular rate & rhythm, no edema Pulm: non-labored respirations, clear bilaterally Abd: soft, non-tender, non-distended MSK: no contractures, no tenderness Skin: no rashes, no lesions vitals reviewed Problem List Acute cystitis without hematuria nausea/vomiting with weight loss Hypothyroidism Generalzed weakness Impaired mobility Afib, paroxysmal Hypertension, chronic GERD UA concerning for UTI - bacteruria culture without growth Complete 5 days of IV rocephin; s/p azithromycin as part of empiric treatment for pneumonia ongoing nausea/vomiting for a few weeks now GI consulted - Dr. Sullivan EGD (06/19): gastritis, hiatal hernia gastric emptying study today continue PPI, laxatives/stool softeners - h/o functional constipation and takes at home hypothyroid may be playing a part. TSH: 30s increased home dose cherelle 88mcg to 112mcg; Was decreased to 88mcg a few months ago decreased PO intake, ~17-20 lb weight loss in last month Disposition: Anticipating acute rehab versus home with home health. Code: full
[2022-06-20] MEDS: ONDANSETRON 4 MG (ODT) TAB PO PRN (21:26)
[2022-06-20] MEDS: ATORVASTATIN 40 MG TAB PO SCH (21:26)
[2022-06-20] MEDS: CEFTRIAXONE 1,000 MG in NA CHLORIDE 0.9% 50 ML IVPB SCH (23:47)
[2022-06-21 03:53] LABS: Absolute Lymphocytes (CBC) 0.8 K/uL (0.7-4.9); Hematocrit 35.5 % (36.0-45.0); Lymphocytes % 15.5 % (15.3-44.8); MCV 96.3 fL (80-100); MPV 9.1 fL (7.6-11.3); RBC Red Blood Cell Count 3.68 M/uL (3.86-4.86)
[2022-06-21 04:12] LABS: Albumin 2.6 g/dL (3.4-5.0); Bilirubin Total 0.3 mg/dL (0.2-1.0); Magnesium 2.4 mg/dL (1.6-2.4); Potassium 3.9 mmol/L (3.5-5.1); Protein, Total 5.5 g/dL (6.4-8.2)
[2022-06-21] MEDS: LEVOTHYROXINE SOD 0.112 MG TAB PO SCH (05:43)
[2022-06-21] MEDS: NA CHLORIDE 0.9% 1,000 ML IV SCH ×2 (05:46→18:08)
[2022-06-21] MEDS: ONDANSETRON 4 MG (ODT) TAB PO PRN (05:46)
--- NOTE | 2022-06-21 06:57 | P.PN ---
Date of Service: 06/21/22 Subjective: slight improvement with nausea, no appetite tolerated some broth last night normal gastric emptying study yesterday still feels very weak/tired ROS: A complete review of systems was performed and is negative except as mentioned above Physical Exam: Gen: AOx3, fatigued appearing HEENT: normal conjunctiva, sclera anicteric CV: regular rate & rhythm, no edema Pulm: non-labored respirations, clear bilaterally Abd: soft, non-tender, non-distended Skin: no rashes, no lesions vitals reviewed Problem List Acute cystitis without hematuria nausea/vomiting with weight loss Hypothyroidism Generalzed weakness Impaired mobility Afib, paroxysmal Hypertension, chronic GERD UA concerning for UTI - bacteruria, WBCs culture without growth Complete 5 days of IV rocephin; s/p azithromycin as part of empiric treatment for pneumonia ongoing nausea/vomiting for a few weeks now GI consulted - Dr. 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 TSH: 30s increased home dose cherelle 88mcg to 112mcg; Was decreased to 88mcg a few months ago patient confirmed suspicion - was given synthroid at same time as PPI at rehab, likely decreasing GI absorption decreased PO intake, ~17-20 lb weight loss in last month advance diet GI recommends trial of reglan convert protonix to IV Disposition: Anticipating acute rehab versus home with home health. ~2-3 days Code: full
[2022-06-21] MEDS: HOME MED 1 EA UNK (Cyclosporine [Restasis] Droperette) OPTH SCH ×2 (09:00→21:00)
[2022-06-21] MEDS ORDERED: POTASSIUM CL SA 10 MEQ TAB PO ONE (09:00)
[2022-06-21] MEDS: DOCUSATE NA 100 MG CAP PO SCH (09:45)
[2022-06-21] MEDS: SENOSIDES 8.6 MG TAB PO SCH ×2 (09:45→22:03)
[2022-06-21] MEDS: APIXABAN 5 MG TABLET PO SCH ×2 (09:46→22:03)
[2022-06-21] MEDS: PANTOPRAZOLE 40MG TABLET PO SCH (09:46)
[2022-06-21] MEDS: SERTRALINE HCL 100 MG TAB PO SCH ×2 (09:46→22:03)
[2022-06-21] MEDS: ASPIRIN EC 81 MG TAB PO SCH (09:46)
[2022-06-21] MEDS: AMIODARONE HCL 200 MG TAB PO SCH ×2 (09:46→22:04)
[2022-06-21] MEDS: METOPROLOL XL 25 MG TAB PO SCH (09:47)
--- NOTE | 2022-06-21 10:28 | P.PN ---
Subjective Date of Service: 06/21/22 Primary Care Provider: Don Chief Complaint: Pneumonia, Weakness, N/V Subjective: Improving (Less nausea. TSH 36.5 (down from 45 on 06-10-22 at [facility], down after 1 week). CVAs X2 in 2021.) Physical Examination - Vital Signs Temperature: 98.2 F Blood Pressure: 127/59 Pulse: 68 Respirations: 12 Pulse Ox (%): 93 Assessment And Plan - Current Problems (Diagnosis) (1) Nausea & vomiting Current Visit: Yes Status: Acute Comment: N/V probably multifactorial with gastritis, TSH 36.5, pneumonia, UTI, and recent CVAs. (2) Constipation Current Visit: Yes Status: Acute (3) UTI (urinary tract infection) Current Visit: Yes Status: Acute (4) Hypothyroidism Current Visit: Yes Status: Acute Comment: TSH 36.5 (down from 45 on 06-10-22 at [facility], down after 1 week). (5) Pneumonia Current Visit: Yes Status: Acute Qualifiers: Pneumonia type: due to unspecified organism Laterality: right Lung location: lower lobe of lung Qualified Code(s): J18.9 - Pneumonia, unspecified organism (6) GERD (gastroesophageal reflux disease) Current Visit: Yes Status: Chronic Qualifiers: Esophagitis presence: without esophagitis Qualified Code(s): K21.9 - Gastro-esophageal reflux disease without esophagitis - Plan REC: 1) Protonix 40 mg IV bid 2) Agree with increase in Synthroid 3) Continue ASA with history of CVAs X 2 in 2021 Physician Review: Patient Assessed, Agree with Above Assessment and Plan
[2022-06-21] MEDS ORDERED: BISACODYL 10 MG RECTAL SUPP PR ONE (10:30)
[2022-06-21] MEDS ORDERED: SODIUM CHLORIDE 0.9% 20 ML VIAL IV PRN (10:48)
[2022-06-21] MEDS: METOCLOPRAMIDE 10 MG/2mL INJ IV SCH ×2 (11:03→22:05)
[2022-06-21] MEDS: SIMETHICONE 125 MG TAB PO SCH ×2 (13:42→21:00)
[2022-06-21] MEDS: POLYETHYL GLY 3350 17 GM/DOSE PO SCH ×2 (13:42→22:05)
[2022-06-21] MEDS: ONDANSETRON 4 MG/2 ML VIAL IV PRN (20:30)
[2022-06-21] MEDS: ATORVASTATIN 40 MG TAB PO SCH (22:04)
[2022-06-21] MEDS: PANTOPRAZOLE 40 MG INJ IVP SCH (22:05)
[2022-06-21] MEDS: HYDROCORTISONE ACETATE 25MG SUPP PR PRN (22:06)
[2022-06-21] MEDS: CEFTRIAXONE 1,000 MG in NA CHLORIDE 0.9% 50 ML IVPB SCH (22:06)
[2022-06-22 03:59] LABS: Magnesium 2.2 mg/dL (1.6-2.4); Phosphorus 1.9 mg/dL (2.5-4.9); Potassium 4.3 mmol/L (3.5-5.1)
[2022-06-22 04:00] LABS: Thyroid Stimulating Hormone 26.8 uIU/mL (0.358-3.740)
[2022-06-22] MEDS ORDERED: POTASS/SODIUM PHOSPHATE 1 PKT POWD.PACK PO SCH (05:00)
[2022-06-22] MEDS: NA CHLORIDE 0.9% 1,000 ML IV SCH ×3 (06:06→16:15)
[2022-06-22] MEDS: POTASS/SODIUM PHOSPHATE 1 PKT POWD.PACK PO SCH ×3 (06:06→09:43)
[2022-06-22] MEDS: LEVOTHYROXINE SOD 0.112 MG TAB PO SCH (06:06)
[2022-06-22] MEDS: HOME MED 1 EA UNK (Cyclosporine [Restasis] Droperette) OPTH SCH ×2 (09:00→21:00)
[2022-06-22] MEDS: AMIODARONE HCL 200 MG TAB PO SCH ×2 (09:40→22:19)
[2022-06-22] MEDS: ASPIRIN EC 81 MG TAB PO SCH (09:40)
[2022-06-22] MEDS: SERTRALINE HCL 100 MG TAB PO SCH ×2 (09:41→22:18)
[2022-06-22] MEDS: METOPROLOL XL 25 MG TAB PO SCH (09:41)
[2022-06-22] MEDS: DOCUSATE NA 100 MG CAP PO SCH (09:41)
[2022-06-22] MEDS: APIXABAN 5 MG TABLET PO SCH ×2 (09:41→22:18)
[2022-06-22] MEDS: PANTOPRAZOLE 40 MG INJ IVP SCH ×2 (09:42→22:18)
[2022-06-22] MEDS: METOCLOPRAMIDE 10 MG/2mL INJ IV SCH ×2 (09:42→22:18)
[2022-06-22] MEDS: SENOSIDES 8.6 MG TAB PO SCH ×2 (09:43→22:18)
[2022-06-22] MEDS: POLYETHYL GLY 3350 17 GM/DOSE PO SCH ×3 (09:43→22:18)
[2022-06-22] MEDS: SIMETHICONE 125 MG TAB PO SCH ×2 (09:53→22:19)
--- NOTE | 2022-06-22 13:38 | P.PN ---
Subjective Date of Service: 06/22/22 Primary Care Provider: Don Chief Complaint: Pneumonia, Weakness, N/V Subjective: Improving (No N/V now. Appetite poor but elderly and recovering from pneumonia and possible UTI. She also is on increased therapy for hypothyroidism. She notes bowel movements today with some lower abdominal cramping on Miralax.) Review of Systems 10-point ROS is otherwise unremarkable General: Weakness, Malaise (Slowly improving) Gastrointestinal: Abdominal Pain (RLQ/LLQ cramping) Physical Examination - Vital Signs Temperature: 98.0 F Blood Pressure: 121/58 Pulse: 66 Respirations: 16 Pulse Ox (%): 95 - Physical Exam General: Alert, In no apparent distress, Oriented x3, Cooperative HEENT: Atraumatic, Normocephalic, PERRLA, EOMI Neck: Supple Cardiovascular: Normal pulses Gastrointestinal: No rebound, No guarding, Tenderness (Mild in RLQ/LLQ areas) Musculoskeletal: No swelling Neurological: Normal speech Assessment And Plan - Current Problems (Diagnosis) (1) Nausea & vomiting Current Visit: Yes Status: Acute Comment: N/V probably multifactorial with gastritis, TSH 36.5, pneumonia, UTI, and recent CVAs. Resolved today on IVFs, IV abx, IV PPI, and Reglan. (2) Constipation Current Visit: Yes Status: Acute Comment: Improved on Miralax and Dulcolax. (3) UTI (urinary tract infection) Current Visit: Yes Status: Acute (4) Hypothyroidism Current Visit: Yes Status: Acute Comment: TSH 36.5 (down from 45 on 06-10-22 at [facility], down after 1 week). (5) Pneumonia Current Visit: Yes Status: Acute Qualifiers: Pneumonia type: due to unspecified organism Laterality: right Lung location: lower lobe of lung Qualified Code(s): J18.9 - Pneumonia, unspecified organism (6) GERD (gastroesophageal reflux disease) Current Visit: Yes Status: Chronic Qualifiers: Esophagitis presence: without esophagitis Qualified Code(s): K21.9 - Gastro-esophageal reflux disease without esophagitis - Plan REC: 1) Protonix 40 mg IV bid 2) Agree with increase in Synthroid 3) Continue ASA with history of CVAs X 2 in 2021 4) Reglan 10 mg tid for 3 days only 5) Continue Miralax tid. Dulcolax is prn 6) Continue Gas-X and consider Lactinex 7) Consider appetite stimulant 8) Check Pre-albumin & Albumin 9) Consider calorie counts 10) Allow food from home Physician Review: Patient Assessed, Agree with Above Assessment and Plan
--- NOTE | 2022-06-22 16:14 | P.PN ---
Date of Service: 06/22/22 Subjective: improving nausea improved ambulated with PT feels some hang up in throat, states was worign with speech therapy after stroke ROS: A complete review of systems was performed and is negative except as mentioned above Physical Exam: Gen: AOx3, NAD HEENT: normal conjunctiva, sclera anicteric CV: regular rate & rhythm, no edema Pulm: non-labored respirations, clear bilaterally Abd: soft, non-tender, non-distended Skin: no rashes, no lesions vitals reviewed Problem List Acute cystitis without hematuria nausea/vomiting with weight loss Hypothyroidism Generalzed weakness Impaired mobility Afib, paroxysmal Hypertension, chronic GERD UA concerning for UTI - bacteruria, WBCs culture without growth Complete 5 days of IV rocephin; s/p azithromycin as part of empiric treatment for pneumonia ongoing nausea/vomiting for a few weeks now; progressive GI consulted - Dr. 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 TSH: 30s increased home dose cherelle 88mcg to 112mcg; Was decreased to 88mcg a few months ago patient confirmed suspicion - was given synthroid at same time as PPI at rehab, likely decreasing GI absorption decreased PO intake, ~17-20 lb weight loss in last month advance diet GI recommends trial of reglan converted protonix to IV Disposition: Anticipating acute rehab , likely sunday if continues to improve Code: full
[2022-06-22] MEDS: CEFTRIAXONE 1,000 MG in NA CHLORIDE 0.9% 50 ML IVPB SCH (22:17)
[2022-06-22] MEDS: ATORVASTATIN 40 MG TAB PO SCH (22:19)
[2022-06-23] MEDS: HYDROCORTISONE ACETATE 25MG SUPP PR PRN (02:55)
[2022-06-23] MEDS: NA CHLORIDE 0.9% 1,000 ML IV SCH (06:02)
[2022-06-23] MEDS: LEVOTHYROXINE SOD 0.112 MG TAB PO SCH (06:02)
[2022-06-23 06:33] LABS: Potassium 3.8 mmol/L (3.5-5.1)
[2022-06-23 06:37] LABS: Albumin 2.5 g/dL (3.4-5.0); Prealbumin 10.6 mg/dL (20-40)
--- NOTE | 2022-06-23 06:49 | P.PN ---
Date of Service: 06/23/22 Subjective: improving tolerating more PO celaya removed this morning ambulating more / more strength/energy no new/worsening symptoms ROS: A complete review of systems was performed and is negative except as mentioned above Physical Exam: Gen: AOx3, NAD HEENT: normal conjunctiva, sclera anicteric CV: regular rate & rhythm, no edema Pulm: non-labored respirations, clear bilaterally Abd: soft, non-tender, non-distended Skin: no rashes, no lesions vitals reviewed Problem List Acute cystitis without hematuria nausea/vomiting with weight loss Hypothyroidism Generalized weakness Impaired mobility Afib, paroxysmal Hypertension, chronic GERD UA concerning for UTI - bacteruria, WBCs culture without growth Completed 5 days of IV rocephin; s/p azithromycin as part of empiric treatment for pneumonia ongoing nausea/vomiting for a few weeks now; progressive GI consulted - Dr. 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 TSH: 30s increased home dose cherelle 88mcg to 112mcg; Was decreased to 88mcg a few months ago patient confirmed suspicion - was given synthroid at same time as PPI at rehab, likely decreasing GI absorption decreased PO intake, ~17-20 lb weight loss in last month advanced diet GI recommends trial of reglan converted protonix to IV doing well tolerating more PO switch meds to PO Disposition: Anticipating acute rehab , likely sunday Code: full
[2022-06-23] MEDS ORDERED: POTASSIUM CL SA 10 MEQ TAB PO ONE (09:00)
[2022-06-23] MEDS: HOME MED 1 EA UNK (Cyclosporine [Restasis] Droperette) OPTH SCH ×2 (09:00→20:56)
[2022-06-23] MEDS: METOPROLOL XL 25 MG TAB PO SCH (10:01)
[2022-06-23] MEDS: ASPIRIN EC 81 MG TAB PO SCH (10:01)
[2022-06-23] MEDS: SENOSIDES 8.6 MG TAB PO SCH ×2 (10:02→20:56)
[2022-06-23] MEDS: DOCUSATE NA 100 MG CAP PO SCH (10:02)
[2022-06-23] MEDS: POTASS/SODIUM PHOSPHATE 1 PKT POWD.PACK PO SCH ×2 (10:02→10:50)
[2022-06-23] MEDS: AMIODARONE HCL 200 MG TAB PO SCH ×2 (10:02→20:54)
[2022-06-23] MEDS: SERTRALINE HCL 100 MG TAB PO SCH ×2 (10:02→20:55)
[2022-06-23] MEDS: APIXABAN 5 MG TABLET PO SCH ×2 (10:02→20:55)
[2022-06-23] MEDS: POLYETHYL GLY 3350 17 GM/DOSE PO SCH ×3 (10:03→20:55)
[2022-06-23] MEDS: PANTOPRAZOLE 40 MG INJ IVP SCH (10:03)
[2022-06-23] MEDS: METOCLOPRAMIDE 10 MG/2mL INJ IV SCH ×2 (10:03→20:54)
[2022-06-23] MEDS: SIMETHICONE 125 MG TAB PO SCH ×2 (10:03→20:55)
[2022-06-23] MEDS: ATORVASTATIN 40 MG TAB PO SCH (20:55)
[2022-06-24] MEDS: LEVOTHYROXINE SOD 0.112 MG TAB PO SCH (05:35)
[2022-06-24] MEDS ORDERED: PANTOPRAZOLE 40MG TABLET PO SCH (07:30)
[2022-06-24] MEDS: DOCUSATE NA 100 MG CAP PO SCH (09:00)
[2022-06-24] MEDS: HOME MED 1 EA UNK (Cyclosporine [Restasis] Droperette) OPTH SCH (09:00)
[2022-06-24 09:32] VITALS: O2SAT 97
[2022-06-24] MEDS: METOPROLOL XL 25 MG TAB PO SCH (09:46)
[2022-06-24] MEDS: ASPIRIN EC 81 MG TAB PO SCH (09:47)
[2022-06-24] MEDS: AMIODARONE HCL 200 MG TAB PO SCH (09:47)
[2022-06-24] MEDS: SERTRALINE HCL 100 MG TAB PO SCH (09:47)
[2022-06-24] MEDS: APIXABAN 5 MG TABLET PO SCH (09:47)
[2022-06-24 09:49] VITALS: BP 130/72; TEMP 99.6
--- NOTE | 2022-06-25 16:34 | P.DS ---
Admission Date: 06/15/22 Discharge Date: 06/24/22 Primary Care Provider: Don Disposition: TRANSFER TO INPATIENT REHAB Discharge Condition: GOOD Reason for Admission: Pneumonia, Weakness, N/V Consultations: GI - Dr. Sullivan Speech Therapy Physical Therapy Brief History of Present Illness: 82yo F, PMH: CVAx2 with left sided-deficits, GERD, afib, HTN Presented to ED due to generalized weakness, nausea, decreased PO intake. Patient resides at [facility] for rehabilitation, but staff has noticed that she been declining over the past few days. Daughter states she has lost 18 pounds this past month. She has been seeing Dr. Sullivan who is planning for an endoscopy next week. Vital signs have been stable today. Labs significant for BUN 19, creatinine 1.26, AST 58, BNP 587, TSH 36. Chest xray showed "Early left base pneumonia is possible." CT chest/abdomen/pelvis showed "Cholelithiasis. Moderate stool retained throughout the colon. Moderate hiatal hernia." No consolidation in lungs. She was started on antibiotics and given IV fluids in the emergency department. Patient is admitted for further management. Hospital Course: Problem List Acute cystitis without hematuria nausea/vomiting with weight loss pneumonia ruled out Hypothyroidism Generalized weakness Impaired mobility Afib, paroxysmal Hypertension, chronic GERD Patient was treated with empiric antibiotics for UTI and possible pneumonia. CXR noted some opacities which could represent early pneumonia. CT without concern for pneumonia. UA with bacteruria and WBCs. Culture without growth. Patient clinically had cystitis. Complete 5 days of IV rocephin, remained afebrile. She had ongoing nausea/vomiting and anorexia with ~20lb weight loss in the last month. GI was consulted, and patient underwent EGD noting gastritis and moderate hiatal hernia. She was treated for constipation, gastritis, and possible delayed gastric emptying. Gastric emptying study was normal. She was also found to have significantly elevated TSH after decades of stable / good control. On further discussion she reported the dose was slightly decreased several month s ago, and has been receiving her synthroid at the same time as all her other medications at her rehab facility - including her PPI. Suspect absorption of her synthroid was affected due to this. For decaded at home, she took her synthroid as instructed at least 1 hour prior to other medications and never had a problem. Uncontrolled hypothyroidism may lead to her symptoms. As she received treatment for all of the above and her TSH improved, the patient's symptoms improved. Evaluated by PT and recommended for inpatient rehab. Stable for discharge to rehab. Vital Signs/Physical Exam: Temp Pulse Resp BP Pulse Ox 99.6 F 71 24 H 130/72 93 06/24/22 08:00 06/24/22 09:46 06/24/22 08:00 06/24/22 09:46 06/24/22 08:00 Physical Exam: Gen: AOx3, NAD HEENT: normal conjunctiva, sclera anicteric CV: regular rate & rhythm, no edema Pulm: non-labored respirations, clear bilaterally Abd: soft, non-tender, non-distended Skin: no rashes, no lesions Laboratory Data at Discharge: WBC 5.00 K/uL (4.3-10.9) 06/21/22 03:12 Hgb 11.7 g/dL (12.0-15.0) L 06/21/22 03:12 Hct 35.5 % (36.0-45.0) L 06/21/22 03:12 Plt Count 113 K/uL (152-406) L 06/21/22 03:12 Sodium 141 mmol/L (136-145) 06/24/22 07:10 Potassium 4.0 mmol/L (3.5-5.1) 06/24/22 07:10 BUN 10 mg/dL (7-18) 06/24/22 07:10 Creatinine 0.78 mg/dL (0.55-1.02) 06/24/22 07:10 Glucose 107 mg/dL (74-106) H 06/24/22 07:10 Phosphorus 2.0 mg/dL (2.5-4.9) L 06/23/22 05:44 Magnesium 2.2 mg/dL (1.6-2.4) 06/22/22 03:06 Total Bilirubin 0.3 mg/dL (0.2-1.0) 06/21/22 03:12 AST 41 U/L (15-37) H 06/21/22 03:12 ALT 27 U/L (13-56) 06/21/22 03:12 Alkaline Phosphatase 40 U/L (45-117) L 06/21/22 03:12 Triglycerides 85 mg/dL (<150) 06/16/22 07:34 Cholesterol 112 mg/dL (<200) 06/16/22 07:34 HDL Cholesterol 56 mg/dL (40-60) 06/16/22 07:34 Cholesterol/HDL Ratio 2.00 06/16/22 07:34 Home Medications: Acetaminophen [Tylenol] 500 mg PO Q4H PRN 06/16/22 Amiodarone HCl 200 mg PO BID 06/16/22 Apixaban [Eliquis] 5 mg PO BID 06/16/22 Atorvastatin Calcium 40 mg PO BEDTIME 06/16/22 Calcium Carbonate [Calcium] 500 mg PO TID 06/16/22 Cyclosporine [Restasis] 1 drop EACH EYE BID 06/16/22 Docusate Sodium 100 mg PO DAILY 06/16/22 Metoprolol Succinate 25 mg PO DAILY 06/16/22 Ondansetron HCl 4 mg PO Q6H PRN 06/16/22 Promethazine Tab [Phenergan*] 12.5 tab PO Q4H PRN 06/16/22 Sertraline [Zoloft*] 100 mg PO BID 06/16/22 Levothyroxine [Synthroid*] 0.112 mg PO DAILYAC tab 06/24/22 Pantoprazole [Protonix Tab*] 40 mg PO BIDAC tab 06/24/22 Hydrocort Acetate Suppos [Anucort-Hc Suppository*] 1 supp MO BID PRN 06/25/22 Polyethyl Gly 3350 [Glycolax*] 17 gm PO TID 06/25/22 Simethicone 125 mg PO BID 06/25/22 Followup: NONE,NONE [Primary Care Provider] - Time spent managing pt's care (in minutes): 45
== END 2022-06-24 12:30 | DRG 690 ==
LOC: ER 18:06 → ERHOLD 20:36 → 2ND 22:25
PROVIDERS: ADMIT Internal Medicine; ATTEND Hospitalist
PROC: 0DB78ZX Excision of Stomach, Pylorus, Via Natural or Artificial Opening Endoscopic, Diagnostic (ICD-10-PCS; principal; 2022-06-19 13:15)
DX: N30.00 Acute cystitis without hematuria (principal); I69.354 Hemiplegia and hemiparesis following cerebral infarction affecting left non-dominant side; K21.00 Gastro-esophageal reflux disease with esophagitis, without bleeding; K59.04 Chronic idiopathic constipation; K29.00 Acute gastritis without bleeding; K21.9 Gastro-esophageal reflux disease without esophagitis; E03.9 Hypothyroidism, unspecified; K31.89 Other diseases of stomach and duodenum; E78.5 Hyperlipidemia, unspecified; E86.0 Dehydration; I10 Essential (primary) hypertension; K80.20 Calculus of gallbladder without cholecystitis without obstruction; K44.9 Diaphragmatic hernia without obstruction or gangrene; I48.0 Paroxysmal atrial fibrillation; R33.9 Retention of urine, unspecified; R63.4 Abnormal weight loss; Z88.8 Allergy status to other drugs, medicaments and biological substances; Z88.5 Allergy status to narcotic agent; Z79.82 Long term (current) use of aspirin; Z68.24 Body mass index [BMI] 24.0-24.9, adult; Z79.01 Long term (current) use of anticoagulants; Z79.899 Other long term (current) drug therapy; Z79.890 Hormone replacement therapy; Z20.822 Contact with and (suspected) exposure to COVID-19
CPT/HCPCS: 36415; 71045; 71260; 74177; 78264; 80048; 80053; 80061; 81001; 81015; 82040; 83605; 83735; 83880; 84100; 84134; 84439; 84443; 84484; 85025; 87086; 87088; 87811; 88305; 88312; 93005; 94010; 94760; 96374; 96375; 97110; 97112; 97116; 97161; 97530; 99285; C9113; J0171; J0456; J2001; J2405; J2704; J2765; J7030; J7040; J7050; Q0162; Q9967; U0003

== ENCOUNTER 2022-07-19 15:18 | Emergency (ER) | payer OTHER, BC ==
--- OUTSIDE RECORDS SUMMARY | 2022-07-19 15:24 | XMS REPORT | Clinical Summary ---
:1940 Author Organization [facility] MD [facility] Address [address] [place] [id number] Care Team Providers Name Role Phone Unavailable [...] 06/13/2020 Pfizer series) Results Not on fileafter 07/19/2021 Insurance Payer Benefit Plan / Subscriber ID Effective Dates Phone Addre ss Type Group MEDICARE MEDICARE PART [id number] 2004-Desmond [phone] TIARA Medicare A AND B t 2 SOLUTIONS [address] [facility] [place] [id number]
--- OUTSIDE RECORDS SUMMARY | 2022-07-19 15:35 | XMS REPORT | Continuity of Care Document ---
:1940 Author Organization [facility] t Address [address] [facility] [address] [place] [address] Care Team Providers Name Role Phone Carson Rudolph MD Primary Care Physician [id number] Attending Clinician Unavailable Bert Hall Attending Clinician Unavailable Noa Segura Attending Clinician Unavailable Maximino Cruz Attending Clinician MAXIMINO CRUZ Attending Clinician Unavailable Micki Manjarrez Attending Clinician MICKI MANJARREZ Attending Clinician Unavailable Brandon Saunders Attending Clinician Paco Tuttle Attending Clinician PACO TUTTLE Attending Clinician Unavailable Jennyfer Feliciano Attending Clinician JENNYFER FELICIANO Attending Clinician Unavailable Carson Rudolph MD Attending Clinician Quan Cabrera Attending Clinician QUAN CABRERA Attending Clinician Unavailable Ruthann Coronado Attending Clinician RUTHANN CORONADO Attending Clinician Unavailable CARSON RUDOLPH Attending Clinician Unavailable Carson Rudolph Attending Clinician [id number] Admitting Clinician Unavailable Maximino Cruz Admitting Clinician ANTHONYMAXIMINO IRELAND Admitting Clinician Unavailable AhMarce dixona Admitting Clinician AHBRANDON DIXON Admitting Clinician Unavailable Larrylorin Marianneericshira Pilar Admitting Clinician [phone] ASHLEEELEONORATOMAS GANESHALALLAN Admitting Clinician Unavailable Payers Payer Name Policy Type Policy Number Effective Date Expiration Date S [facility] MEDICARE PART A [id number] 2004 2024 AND B 00:00:00 00:00:00 MCR MCR [id number] BCTI BCTI [id number] [id number] 2021 2022 Pulse 00:00:00 00:00:00 Problems Condition Condition Condition Status Onset Resolution Last Treating Co mments Source Name Details Category Date Date Treatment Clinician Date SUBACUTE SUBACUTE Diagnosis Active 2021-052022-02-17 Memoria STROKE STROKE 0- 21:55:00 l Active 00:00: Daniel 02/12/[address] [place] [address], [place] CVA CVA Diagnosis Active 2021-052022-03-15 Mem oria Active 0 21:55:00 l 02/12/2022 00:00: Quentin jack 00 [facility] STROKE STROKE Diagnosis Active 2021-052022-02-22 Me moria LIKE LIKE 0-08 21:52:00 l SYMPTOMS SYMPTOMS 00:00: Quentin jack Active 00 02/11/2022 [facility] FALL FALL Diagnosis Active 2021-052022-02-13 Mem oria Active 0 13:04:00 l 02/08/2022 00:00: Quentin jack [address] ACUTE CVA ACUTE CVA Diagnosis Active 2021-05-07 Memoria Active 05-07 21:58:00 l 05/07/2021 00:00: Quentin jack [address] ACUTE ACUTE Diagnosis Active 2021-05-18 morilorin CEREBROVAS CEREBROVAS 05-07 21:46:00 l CULAR CULAR 00:00: Daniel ACCIDENT ACCIDENT 00 Active 05/07/2021 [facility] DIZZINESS, DIZZINESS Diagnosis Active 2021-06-[address] [facility] VOMITING , VOMITING 05-07 13:44:00 l Active 00:00: Daniel 05/07/[address] [place] [address] CKD CKD Disease Active [facility] ([facility]ronic (chronic 3-12 [facility] kidney kidney 00:00: Medical disease) disease) 00 Center stage 3, stage 3, GFR 30-59 GFR 30-59 ml/min ml/min Lumbar Lumbar Disease Active Overview: [facility] rad[facility]opa [facility]opa [facility] thy thy 00:00: g of this Medical 00 note Center might be different from the original. [place] Cannot leave home due to care for , making her home bound. Impaired Impaired Disease Active [facility] glucose [facility]02 [facility] tolerance tolerance 00:00: Medi eelna 00 Center Paroxysmal Paroxysmal Disease Active Overview [...] Disease Active Overview: [facility] hyperlipid hyperlipid 11-29 [facility] emia emia 00:00: g of [...] Active Overview: [facility] gait gait -23 [facility] 00:00: g of this Medical 00 note Center might be different from the original. Encourage d walking every day. Walks 2-3 days a week. Not outside. FREQUENT FREQUENT Diagnosis Active 2016-052017-04-18 Memoria [place]ALL[place] FALL[place] - 12:17:00 l UNSTEADY UNSTEADY 11:52: Quentin jack GAIT, GAIT, 00 R.29.6 R.29.6 Active 03/14/2017 [facility] FREQUENT FREQUENT Diagnosis Active 2017-02-09 Memoria [place] 9-11 15:30:00 l UNSTEADY UNSTEADY 08:00: Quentin jack GAIT, GAIT, 00 R29.6, R26 R29.6, R26 Active 01/15/2017 [facility] FREQUENT FREQUENT Diagnosis Active 2017-02-09 Memoria FALLS, FALLS, 8-17 16:25:00 l GAIT GAIT 08:00: Daniel INSTABILIT INSTABILIT 00 Y Y Active 12/21/2016 [facility] Migraine Migraine Disease Active Overview: [facility] without without 7-20 [facility] aura and aura and 00:00: [...] 00:00: g of this Medical without without 00 note Center complicati complicati might be on [...] polyps Essential Essential Disease Active 2014-05 Overview: [facility] St hypertensi hypertensi 2-03 [facility] on [...] benign 00:00: g of this Med ical 00 note Center might be different from the original. Dr. Eric Osteopenia Osteopenia Disease Active Overview : [facility] hip of hip 01-26 [facility] 00:[facility]: g of this Medical 00 note Center might be different from the original. 2018Lumba r Spine: 0.4 Mean Femoral Neck: -1.Prev osteoporo sis. Improved. . 2013-06. [id number] -1.9 femurStop Prolia. (does not tolerate fosamax)L ast Assessmen t & Plan: Formattin g of this note might be different from the original. 2013-06. [id number] -1.9 Femur Depression Depression Disease Active Overview [...] different from the original. Since age 12 Muscle Muscle Problem 2017-08-23 Mario elvira weakness weakness 15:11:10 l (generaliz (generaliz Fabrizio scotty ed) ed) 08/23/2017 [facility] Other Other Problem 2017-08-23 Memor ia abnormalit abnormalit 15:11:10 l ies of ies of [place] gait and gait and mobility mobility 08/23/2017 [facility] Stiffness Stiffness Problem 2017-08-23 Memoria of of 15:11:10 l unspecifie unspecifie Fabrizio scotty d joint, d joint, not not elsewhere elsewhere classified classified 8 [facility] Cerebral Cerebral Diagnosis 2022-03-05 Memoria infarction infarction 22:58:38 l (disorder) (disorder) He rmann Diagnosis 03/05/2022 [facility] Atrial Atrial Problem Active 2022-03-05 Mario elvira fibrillati fibrillati 22:58:38 l on on Daniel (disorder) (disorder) Active Problem 03/05/2022 [facility], [place] Benign Benign Problem Active 2022-03-05 Mario elvira essential essential 22:58:38 l hypertensi hypertensi He rmann on on (disorder) (disorder) Active Problem 03/05/2022 [facility], [facility], [place] Cerebrovas Cerebrova Problem Active 2022-03-05 Memoria cular scular 22:58:38 l accident accident Quentin n (disorder) (disorder) Active Problem 03/05/2022 [facility], [place] Dyslipidem Dyslipide Problem Active 2022-03-05 Memoria ia le 22:58:38 l (disorder) (disorder) He rmann Active Problem 03/05/2022 [facility], [facility] [place] History of History Problem Active 2022-03-05 Memoria - CVA of - CVA 22:58:38 l (context-d (context-d He rmann ependent ependent category) category) Active Problem 03/05/2022 [facility] [place] Hyperlipid Hyperlipi Problem Active 2022-03-05 Memoria emia demia 22:58:38 l (disorder) (disorder) He rmann Active Problem 03/05/2022 [facility] [place] Hypertensi Hypertens Problem Active 2022-03-05 Memoria ve navi 22:58:38 l disorder, disorder, Herm scotty systemic systemic arterial arterial (disorder) (disorder) Active Problem 03/05/2022 [facility], [place] Left Left Problem Active 2022-03-05 Memor ia hemiparesi hemiparesi 22:58:38 l s s Daniel (disorder) (disorder) Active Problem 03/05/2022 [facility] [place] Lymphedema Lymphedem Problem Active 2022-03-05 Memoria (disorder) a 22:58:38 l (disorder) Quentin n Active Problem 03/05/2022 [facility], [facility] Obesity Obesity Problem Active 2022-03-05 Me moria (disorder) (disorder) 22:58:38 l Active Christ[place] Problem 03/05/2022 [facility] CEREBRAL CEREBRAL Diagnosis Active 2022-03-15 Memoria INFARCTION INFARCTION 21:55:00 l , , Daniel UNSPECIFIE UNSPECIFIE D D Active [facility] Exacerbati Acute Problem Pulse on of exacerbati [...] therapy therapy Depression Depression Problem P ulse History of Past Illness Condition Condition Condition Status Onset Resolution Last Treating Co mments Source Name Details Category Date Date Treatment Clinician Date residential computer terminal operator Problem 2021-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-02-10 2022-02-10 Memoria (current) (current) 0- 23:58:26 23:58:26 l use of use of 18:48: Daniel anticoagul anticoagul 00 ants ants 02/08/2022 2 [facility] Paroxysmal Paroxysma Problem 2021-052022-02-10 2022-02-10 Memoria atrial l atrial 0- 23:58:26 23:58:26 l fibrillati fibrillati 18:48: He rmann on on 00 02/08/2022 2 [facility] Unspecifie Unspecifi Problem 2021-052022-02-10 2022-02-10 Memoria d fall, ed fall, 0-05 23:58:26 23:58:26 l initial initial 18:47: Daniel encounter encounter 00 02/08/2022 2 [facility] Unspecifie Unspecifi Problem 2021-052022-02-10 2022-02-10 Memoria d injury ed injury 0-05 23:58:26 23:58:26 l of head, of head, 18:47: Quentin jack initial initial 00 encounter encounter 02/08/2022 02/10/2022 [facility] Repeated Repeated Problem 2017-2017-08-23 2017-08-23 Memoria falls falls - 15:11:10 15:11:10 l 05/23/2017 05:35: Quentin jack 21 8 [facility] Allergies, Adverse Reactions, Alerts Allergy Allergy Status Severity Reaction(s) Onset Inactive Treating Comm ents Source Name Type Date Date Clinician Lisinopr Propensi Active Moderate cough [facility] adverse 00:00: Medical reaction 00 Center s LISINOPR Allergy Active Med [facility] Ibuprofe Drug Active Other (See Ulcers in C [facility] n Allergy Comments) - stomach [facility] IBUPROFE Allergy Active High Other [facility] 5-16 [facility] Codeine Drug Active Other (See Feel [facility] Allergy Comments) 3 nervous [facility] CODEINE Allergy Active High Other [facility] 3[facility]03 [facility] Center codeine< codeine< Active Memori a sup>1</s sup>1</s l up> up> Daniel acetamin acetamin Active Moderate Mario elvira ophen-co ophen-co l deine<benjamin deine<benjamin Quentin n p>2</sup p>2</sup > > Family History Family Member Diagnosis Comments Start Date Stop Date Source Natural brother COPD [facility] Natural brother Heart disease [facility] Natural brother Hypertension [facility] Maternal grandmother Tremor [facility] Natural mother COPD [facility] Natural mother Heart disease [facility] Natural mother Tremor [facility] Natural sister COPD [facility] Natural sister Hypertension [facility] Social History Social Habit Start Date Stop Date Quantity Comments Source History of Pulse Tobacco Use Social History 2021-05-08 2021-05-08 [facility] 06:21:56 06:21:56 Alcohol intake 2020-06-07 2020-06-[address] Y[facility]aira es 00:00:00 00:00:00 non-drinker of Medical Ce nter alcohol (finding) Tobacco use and 2013-07-07 2013-07-[address] Ani kes exposure 00:00:00 00:00:00 Medical Center Sex Ass[birth year] At [birth year] [facility]00 [place] [facility] Smoking Status Start Date Stop Date Source Tobacco smoking status [facility] Medications Ordered Filled Start Stop Current Ordering [...] PO, l oral 19:15: Daily, # 7 Christoval enteric 00 tab, 0 coated Refill(s), tablet Pharmacy: [facility], 160.02, cm, 02/14/22 20:23:00 CDT, Height, 74, kg, 02/14/22 20:23:00 CDT, Weight levothyroxi 2021-05 Yes 88 Memori a ne [...] PO, l oral 19:15: Daily, # 7 Christoval enteric 00 tab, 0 coated Refill(s), tablet Pharmacy: [facility], 160.02, cm, 02/14/22 20:23:00 CDT, Height, 74, kg, 02/14/22 20:23:00 CDT, Weight levothyroxi 2021-05 Yes 88 Memori a ne [...] PO, l oral 19:15: Daily, # 7 Christoval enteric 00 tab, 0 coated Refill(s), tablet [...] PO, l oral tablet 19:14: Bedtime, # Christoval 00 7 tab, 0 Refill(s), Pharmacy: [facility], 160.02, cm, 02/14/22 20:23:00 CDT, Height, 74, kg, 02/14/22 20:23:00 CDT, Weight AMIODarone 2021-05 Yes 200 mg = 1 M emoria 200 mg oral 0-28 tab, PO, l tablet 19:14: BID, # 14 Quentin n 00 tab, 0 Refill(s), Pharmacy: [facility], 160.02, cm, 02/14/22 20:23:00 CDT, Height, 74, kg, 02/14/22 20:23:00 CDT, Weight apixaban 2021-05 Yes 5 mg = 1 Mem [...] 74, kg, 02/14/22 20:23:00 CDT, Weight apixaban 2021-05 Yes 5 mg = 1 Mem oria mg oral 0-28 tab, PO, l tablet 19:14: Q12H, # 14 Marilnyn nn 00 tab, 0 Refill(s), Pharmacy: Pharmacy [...] PO, l oral tablet 19:14: Bedtime, # Christoval 00 7 tab, 0 Refill(s), Pharmacy: Pharmacy [...] PO, l oral tablet 19:14: Bedtime, # Christoval 00 7 tab, 0 Refill(s), Pharmacy: [facility], 160.02, cm, 02/14/22 20:23:00 CDT, Height, 74, kg, 02/14/22 20:23:00 CDT, Weight potassium 2021-05 Yes 20 mEq = 1 Me moria chloride 20 0-28 tab, PO, l mEq oral 13:43: BID, PRN Marilynn nn tablet, 00 Abnormal extended Lab release Result, 0 (KCL) Refill(s) potassium 2021-05 Yes 20 mEq = 1 Me moria chloride 20 0-28 tab, PO, l mEq oral 13:43: BID, PRN Marilynn nn tablet, 00 Abnormal extended Lab release Result, 0 (KCL) Refill(s) potassium 2021-05 Yes 20 mEq = 1 Me moria chloride 20 0-28 tab, PO, l mEq oral 13:43: BID, PRN Marilynn nn tablet, 00 Abnormal extended Lab release Result, 0 (KCL) Refill(s) calcium 2021-05 Yes 500 mg = 1 Mario elvira carbonate 0-28 tab, CHEW, l 500 mg (200 13:42: TID, 0 Herm scotty mg 00 Refill(s) elemental calcium) oral tablet calcium 2021-05 Yes 500 mg = 1 Mario elvira carbonate 0-28 tab, CHEW, l 500 mg (200 13:42: TID, 0 Herm scotty mg 00 Refill(s) elemental calcium) oral tablet calcium 2021-05 Yes 500 mg = 1 [...] tablet 13:41: BID, 0 Daniel 00 Refill(s) glycopyrrol 2021-05 Yes 1 mg = 1 Me moria ate 1 mg 0-28 tab, PO, l oral tablet 13:41: BID, 0 Herm scotty 00 Refill(s) sertraline 2021-05 Yes 100 mg = 1 M emoria 100 mg oral 0-28 tab, PO, l tablet 13:41: BID, 0 Christoval 00 Refill(s) glycopyrrol 2021-05 Yes 1 mg = 1 [...] on an l mg) oral 14:01: Empty Christoval tablet 00 Stomach (Same as: Lanoxin) digoxin 250 2021-05 Yes Notes: Mario elvira mcg (0.25 0-18 Take on an l mg) oral 14:01: Empty Christoval tablet 00 Stomach (Same as: Lanoxin) digoxin 250 2021-05 Yes Notes: Mario elvira mcg (0.25 0-18 Take on an l mg) oral 14:01: Empty Daniel tablet 00 Stomach (Same as: Lanoxin) aspirin 81 2021-05 Yes 81 mg = 1 Me moria mg tablet, 0-11 tab, PO, l enteric 21:08: Daily, 0 Quentin n coated 00 Refill(s) atorvastati 2021-05 Yes 40 mg = 1 M emoria n 40 mg 0-11 tab, PO, l oral tablet 21:08: Bedtime, 0 Christoval 00 Refill(s) aspirin 81 2021-05 Yes 81 mg = 1 Me moria mg tablet, 0-11 tab, PO, l enteric 21:08: Daily, 0 Quentin n coated 00 Refill(s) atorvastati 2021-05 Yes 40 mg = 1 M emoria n 40 mg 0-11 tab, PO, l oral tablet 21:08: Bedtime, 0 Christoval 00 Refill(s) aspirin 81 2021-05 Yes 81 mg = 1 Me moria mg tablet, 0-11 tab, PO, l enteric 21:08: Daily, 0 Quentin n coated 00 Refill(s) atorvastati 2021-05 Yes 40 mg = 1 M emoria n 40 mg 0-11 tab, PO, l oral tablet 21:08: Bedtime, 0 Daniel 00 Refill(s) apixaban 5 2021-05 Yes 5 mg = 1 Mem oria mg oral 0-11 tab, PO, l tablet 21:07: Q12H, 0 Christoval 00 Refill(s) apixaban 5 2021-05 Yes 5 mg = 1 Mem oria mg oral 0-11 tab, PO, l tablet 21:07: Q12H, 0 Daniel 00 Refill(s) apixaban 5 2021-05 Yes 5 mg = 1 Mem oria mg oral 0-11 tab, PO, l tablet 21:07: Q12H, 0 Christoval 00 Refill(s) atorvastati 2021-05 Yes Notes: Mario elvira n 0-10 (Same as: l 02:00: Lipitor) Daniel Saline 2021-05 Yes Notes: Memoria Flush 0.9% 0-10 (Same as: l 02:00: BD Christoval Posiflush) atorvastati 2021-05 Yes Notes: Mario elvira n 0-10 (Same as: l 02:00: Lipitor) Daniel Saline 2021-05 Yes Notes: Memoria Flush 0.9% 0-10 (Same as: l 02:00: BD Daniel Posiflush) atorvastati 2021-05 Yes Notes: Mario elvira n 0-10 (Same as: l 02:00: Lipitor) Christoval 00 Saline 2021-05 Yes Notes: Memoria Flush 0.9% 0-10 (Same as: l 02:00: BD Daniel Posiflush) Protonix 2021-05 Yes Notes: For Mem oria 0-09 IV push l 20:57: reconstitu Daniel 00 te with 10 ml 0.9% sodium chloride and push over 2 minutes. (Same as: Protonix) Protonix 2021-05 Yes Notes: For Mem oria 0-09 IV push l 20:57: reconstitu Christoval 00 te with 10 ml 0.9% sodium chloride and push over 2 minutes. (Same as: Protonix) Protonix 2021-05 Yes Notes: For Mem oria 0-09 IV push l 20:57: reconstitu Christoval 00 te with 10 ml 0.9% sodium chloride and push over 2 minutes. (Same as: Protonix) Saline 2021-05 Yes Notes: Memoria Flush 0.9% 0-09 (Same as: l 20:50: BD Daniel 00 Posiflush) Saline 2021-05 Yes Notes: Memoria Flush 0.9% 0-09 (Same as: l 20:50: BD Christoval 00 Posiflush) Saline 2021-05 Yes Notes: Memoria Flush 0.9% 0-09 (Same as: l 20:50: BD Christoval 00 Posiflush) normal 2021-05 No 500 mL, [...] Duration: 30 day, Stop date: 03/14/22 15:15:00 MOLD DRESSER, BSA: 1.83 m2, 0 aspirin 300 2021-05 No Notes: Mario elvira mg rectal 0-09 Refrigerat l suppository 20:16: e. Quentin n 00 normal 2021-05 No 500 mL, Memoria saline [...] Duration: 30 day, Stop date: 03/14/22 15:15:00 MOLD DRESSER, BSA: 1.83 m2, 0 aspirin 300 2021-05 No Notes: Mario elvira mg rectal 0-09 Refrigerat l suppository 20:16: e. Quentin n 00 normal 2021-05 No 500 mL, Memoria saline [...] Duration: 30 day, Stop date: 03/14/22 15:15:00 MOLD DRESSER, BSA: 1.83 m2, 0 aspirin 300 2021-05 No Notes: Mario elvira mg rectal 0-09 Refrigerat l suppository 20:16: e. Quentin n enoxaparin 2021-05 Yes Notes: Memor ia 0-09 (Same as: l 20:00: Lovenox) enoxaparin 2021-05 Yes Notes: Memor ia 0-09 (Same as: l 20:00: Lovenox) enoxaparin 2021-05 Yes Notes: Memor ia 0-09 (Same as: l 20:00: Lovenox) glucagon 2021-05 Yes 1 mg, Memoria 0-09 Route: IM, l 19:25: Drug form: Christoval PDR/INJ, PRN, Dosing Weight 73.7, kg, PRN Blood Glucose Results, Start date: 02/12/22 14:25:00 CDT, Duration: 30 day, Stop date: 03/14/22 13:24:00 MOLD DRESSER, 0 docusate 2021-05 Yes Notes: Memoria 0-09 (Same as: l 19:25: Colace) (Do Not Crush) ondansetron 2021-05 Yes Notes: Mario elvira 0-09 (Same as: l 19:25: Zofran) MEDICATION WASTE Product Size: 4 mg Product Wasted: ___ mg Dextrose 2021-05 Yes 12.5 gm, Memor ia 50% Syringe 0-09 25 mL, l (D50W) 19:25: Route: IVP, Drug Form: INJ, Dosing Weight 73.7, kg, PRN, PRN Blood Glucose Results, Start date: 02/12/22 14:25:00 CDT, Duration: 30 day, Stop date: 03/14/22 13:24:00 MOLD DRESSER, 0 glucagon 2021-05 Yes 1 mg, Memoria 0-09 Route: IM, l 19:25: Drug form: Daniel PDR/INJ, PRN, Dosing Weight 73.7, kg, PRN Blood Glucose Results, Start date: 02/12/22 14:25:00 CDT, Duration: 30 day, Stop date: 03/14/22 13:24:00 MOLD DRESSER, 0 docusate 2021-05 Yes Notes: Memoria 0-09 (Same as: l 19:25: Colace) Christoval (Do Not Crush) ondansetron 2021-05 Yes Notes: Mario elvira 0-09 (Same as: l 19:25: Zofran) MEDICATION WASTE Product Size: 4 mg Product Wasted: ___ mg Dextrose 2021-05 Yes 12.5 gm, Memor ia 50% Syringe 0-09 25 mL, l (D50W) 19:25: Route: Christoval 00 IVP, Drug Form: INJ, Dosing Weight 73.7, kg, PRN, PRN Blood Glucose Results, Start date: 02/12/22 14:25:00 CDT, Duration: 30 day, Stop date: 03/14/22 13:24:00 MOLD DRESSER, 0 glucagon 2021-05 Yes 1 mg, Memoria 0-09 Route: IM, l 19:25: Drug form: Daniel 00 PDR/INJ, PRN, Dosing Weight 73.7, kg, PRN Blood Glucose Results, Start date: 02/12/22 14:25:00 CDT, Duration: 30 day, Stop date: 03/14/22 13:24:00 MOLD DRESSER, 0 docusate 2021-05 Yes Notes: Memoria 0-09 (Same as: l 19:25: Colace) (Do Not Crush) ondansetron 2021-05 Yes Notes: Mario elvira 0-09 (Same as: l 19:25: Zofran) MEDICATION WASTE Product Size: 4 mg Product Wasted: ___ mg Dextrose 2021-05 Yes 12.5 gm, Memor ia 50% Syringe 0-09 25 mL, l (D50W) 19:25: Route: Christoval 00 IVP, Drug Form: INJ, Dosing Weight 73.7, kg, PRN, PRN Blood Glucose Results, Start date: 02/12/22 14:25:00 CDT, Duration: 30 day, Stop date: 03/14/22 13:24:00 MOLD DRESSER, 0 LORazepam LORazepam 2021-05 No BID LORazepam 0.5 MG 0.5 MG 0-07 0.5 MG 00:00: 00 LORazepam LORazepam 2021-05 No BID LORazepam 0.5 MG 0.5 MG 0-07 0.5 MG 00:00: 00 Dexilant No 60 mg, Memoria 1-03 Route: PO, l 15:00: Daily, Dosing Weight 80.455, kg, Start date: 05/09/21 9:00:00 MOLD DRESSER, Duration: 30 day, Stop date: 06/07/21 9:00:00 MOLD DRESSER Diltiazem 0 No Notes: Memori a Hydrochlori 1-03 (Same l de SR 15:00: as:Cardize Quentin n 00 m CD) Before meals. DO NOT CRUSH. metoprolol No Notes: Memor ia tartrate 1-03 (Same as: l 15:00: Lopressor) olmesartan No Notes: Memor ia 1-03 (Same as: l 15:00: Benicar) Dexilant No 60 mg, Memoria 1-03 Route: PO, l 15:00: Daily, Dosing Weight 80.455, kg, Start date: 05/09/21 9:00:00 MOLD DRESSER, Duration: 30 day, Stop date: 06/07/21 9:00:00 MOLD DRESSER Diltiazem 0 No Notes: Memori a Hydrochlori 1-03 (Same l de SR 15:00: as:Cardize Quentin n 00 m CD) Before meals. DO NOT CRUSH. metoprolol No Notes: Memor ia tartrate 1-03 (Same as: l 15:00: Lopressor) olmesartan No Notes: Memor ia 1-03 (Same as: l 15:00: Benicar) Dexilant No 60 mg, Memoria 1-03 Route: PO, l 15:00: Daily, Dosing Weight 80.455, kg, Start date: 05/09/21 9:00:00 MOLD DRESSER, Duration: 30 day, Stop date: 06/07/21 9:00:00 MOLD DRESSER Diltiazem 2021-0 No Notes: Memori a Hydrochlori 1-03 (Same l de SR 15:00: as:Cardize Quentin n 00 m CD) Before meals. DO NOT CRUSH. metoprolol No Notes: Memor ia tartrate 1-03 (Same as: l 15:00: Lopressor) olmesartan No Notes: Memor ia 1-03 (Same as: l 15:00: Benicar) Protonix No Notes: Memoria 1-03 Tablet l 13:30: should not Daniel 00 be chewed or crushed. (Same as: Protonix) Protonix No Notes: Memoria 1-03 Tablet l 13:30: should not Christoval 00 be chewed or crushed. (Same as: Protonix) Protonix No Notes: Memoria 1-03 Tablet l 13:30: should not Christoval 00 be chewed or crushed. (Same as: Protonix) Thyroxine No Notes: Memori a 1-03 Take 1 l 12:00: hour Christoval 00 before or 2 hours after meal; Enteral feeds may interefere with the absorption of this medication . (Same as:Synthro id) Thyroxine No Notes: Memori a 1-03 Take 1 l 12:00: hour Daniel 00 before or 2 hours after meal; Enteral feeds may interefere with the absorption of this medication . (Same as:Synthro id) Thyroxine No Notes: Memori a 1-03 Take 1 l 12:00: hour Christoval 00 before or 2 hours after meal; Enteral feeds may interefere with the absorption of this medication . (Same as:Synthro id) Sertraline No Notes: Memor ia 1-03 (Same as: l 03:00: Zoloft) atorvastati No Notes: Mario elvira n 1-03 (Same as: l 03:00: Lipitor) Sertraline No Notes: Memor ia 1-03 (Same as: l 03:00: Zoloft) Christoval atorvastati No Notes: Mario elvira n 1-03 (Same as: l 03:00: Lipitor) Sertraline No Notes: Memor ia 1-03 (Same as: l 03:00: Zoloft) atorvastati No Notes: Mario elvira n 1-03 (Same as: l 03:00: Lipitor) Pulmicort No Notes: Memori a Respules 1-03 (Same As: l 02:00: Pulmicort) Christoval Pulmicort No Notes: Memori a Respules -03 (Same As: l 02:00: Pulmicort) Christoval Pulmicort No Notes: Memori a Respules -03 (Same As: l 02:00: Pulmicort) Christoval Advair No 1 puff, Memoria Diskus 250 - Route: l mcg-50 mcg 23:00: INHALATION H ermann inhalation , Drug powder Form: AERO, Dosing Weight 80.455, kg, BID, Start date: 05/08/21 17:00:00 MOLD DRESSER, Duration: 30 day, Stop date: 06/07/21 9:00:00 MOLD DRESSER Advair No 1 puff, Memoria Diskus 250 05-08 Route: l mcg-50 mcg 23:00: INHALATION H ermann inhalation , Drug powder Form: AERO, Dosing Weight 80.455, kg, BID, Start date: 05/08/21 17:00:00 MOLD DRESSER, Duration: 30 day, Stop date: 06/07/21 9:00:00 MOLD DRESSER Advair No 1 puff, Memoria Diskus 250 05-08 Route: l mcg-50 mcg 23:00: INHALATION H ermann inhalation , Drug powder Form: AERO, Dosing Weight 80.455, kg, BID, Start date: 05/08/21 17:00:00 MOLD DRESSER, Duration: 30 day, Stop date: 06/07/21 9:00:00 MOLD DRESSER Albuterol No Notes: SEE Me moria 1- RT l 21:00: DOCUMENTAT Christoval 00 ION (Same as: Proventil) Albuterol No Notes: SEE Me moria - RT l 21:00: DOCUMENTAT Daniel 00 ION (Same as: Proventil) Albuterol No Notes: SEE Me moria 1- RT l 21:00: DOCUMENTAT Daniel 00 ION (Same as: Proventil) Aspirin 81 2021-0 Yes 81 mg = 1 Me moria MG Chewable 1-02 tab, PO, l Tablet 19:15: Daily, # Daniel 00 30 tab, 0 Refill(s), Pharmacy: [facility] #[id number], 160.02, cm, 05/08/21 0:09:00 MOLD DRESSER, Height, 80.455, kg, 05/08/21 0:09:00 MOLD DRESSER, Weight Aspirin 81 2021-0 Yes 81 mg = 1 Me moria MG Chewable 1-02 tab, PO, l Tablet 19:15: Daily, # Daniel 00 30 tab, 0 Refill(s), Pharmacy: [facility] #[id number], 160.02, cm, 05/08/21 0:09:00 MOLD DRESSER, Height, 80.455, kg, 05/08/21 0:09:00 MOLD DRESSER, Weight Aspirin 81 2021-0 Yes 81 mg = 1 Me moria MG Chewable 1-02 tab, PO, l Tablet 19:15: Daily, # Christoval 00 30 tab, 0 Refill(s), Pharmacy: [facility] #[id number], 160.02, cm, 05/08/21 0:09:00 MOLD DRESSER, Height, 80.455, kg, 05/08/21 0:09:00 MOLD DRESSER, Weight Ciprofloxac 0 Yes 500 mg = 1 Memoria in 500 MG 1-02 tab, PO, l Oral Tablet 19:14: Q12H, for H ermann [Cipro] 00 UTI, X 3 day, # 6 tab, 0 Refill(s), Pharmacy: [facility] #[id number], 160.02, cm, 05/08/21 0:09:00 MOLD DRESSER, Height, 80.455, kg, 05/08/21 0:09:00 MOLD DRESSER, Weight Ciprofloxac 2021-0 Yes 500 mg = 1 Memoria in 500 MG 1-02 tab, PO, l Oral Tablet 19:14: Q12H, for H ermann [Cipro] 00 UTI, X 3 day, # 6 tab, 0 Refill(s), Pharmacy: [facility] #[id number], 160.02, cm, 05/08/21 0:09:00 MOLD DRESSER, Height, 80.455, kg, 05/08/21 0:09:00 MOLD DRESSER, Weight Ciprofloxac Yes 500 mg = 1 Memoria in 500 MG 1-02 tab, PO, l Oral Tablet 19:14: Q12H, for H ermann [Cipro] 00 UTI, X 3 day, # 6 tab, 0 Refill(s), Pharmacy: [facility] #[id number], 160.02, cm, 05/08/21 0:09:00 MOLD DRESSER, Height, 80.455, kg, 05/08/21 0:09:00 MOLD DRESSER, Weight atorvastati Yes 80 mg = 1 M emoria n 80 MG 1-02 tab, PO, l Oral Tablet 19:13: Bedtime, # Daniel [Lipitor] 00 30 tab, 0 Refill(s), Pharmacy: [facility] #[id number], 160.02, cm, 05/08/21 0:09:00 MOLD DRESSER, Height, 80.455, kg, 05/08/21 0:09:00 MOLD DRESSER, Weight atorvastati Yes 80 mg = 1 M emoria n 80 MG 1-02 tab, PO, l Oral Tablet 19:13: Bedtime, # Christoval [Lipitor] 00 30 tab, 0 Refill(s), Pharmacy: [facility] #[id number], 160.02, cm, 05/08/21 0:09:00 MOLD DRESSER, Height, 80.455, kg, 05/08/21 0:09:00 MOLD DRESSER, Weight atorvastati Yes 80 mg = 1 M emoria n 80 MG 1-02 tab, PO, l Oral Tablet 19:13: Bedtime, # Daniel [Lipitor] 00 30 tab, 0 Refill(s), Pharmacy: [facility] #[id number], 160.02, cm, 05/08/21 0:09:00 MOLD DRESSER, Height, 80.455, kg, 05/08/21 0:09:00 MOLD DRESSER, Weight Ciprofloxac No 500 mg = 1 Memoria in 500 MG 1-02 tab, PO, l Oral Tablet 18:57: Q12H, for H ermann [Cipro] 00 UTI, X 3 day, # 6 tab, 0 Refill(s) Ciprofloxac No 500 mg = 1 Memoria in 500 MG 1-02 tab, PO, l Oral Tablet 18:57: Q12H, for H ermann [Cipro] 00 UTI, X 3 day, # 6 tab, 0 Refill(s) Ciprofloxac No 500 mg = 1 Memoria in 500 MG 1-02 tab, PO, l Oral Tablet 18:57: Q12H, for H ermann [Cipro] 00 UTI, X 3 day, # 6 tab, 0 Refill(s) pantoprazol No 40 mg = 1 M emoria e 40 mg 1-02 tab, PO, l oral 18:17: Before Daniel enteric 00 Breakfast, coated # 30 tab, tablet 0 Refill(s) atorvastati No 80 mg = 1 M emoria n 80 MG -02 tab, PO, l Oral Tablet 18:17: Bedtime, # Christoval [Lipitor] 00 30 tab, 0 Refill(s) pantoprazol No 40 mg = 1 M emoria e 40 mg -02 tab, PO, l oral 18:17: Before Daniel enteric 00 Breakfast, coated # 30 tab, tablet 0 Refill(s) atorvastati No 80 mg = 1 M emoria n 80 MG -02 tab, PO, l Oral Tablet 18:17: Bedtime, # Christoval [Lipitor] 00 30 tab, 0 Refill(s) pantoprazol 0 No 40 mg = 1 M emoria e 40 mg -02 tab, PO, l oral 18:17: Before Christoval enteric 00 Breakfast, coated # 30 tab, tablet 0 Refill(s) atorvastati 0 No 80 mg = 1 M emoria n 80 MG -02 tab, PO, l Oral Tablet 18:17: Bedtime, # Christoval [Lipitor] 00 30 tab, 0 Refill(s) Aspirin 81 2021-0 No 81 mg = 1 Me moria MG Chewable 1-02 tab, PO, l Tablet 18:16: Daily, # Daniel 00 30 tab, 0 Refill(s) Aspirin 81 2021-0 No 81 mg = 1 Me moria MG Chewable 1-02 tab, PO, l Tablet 18:16: Daily, # Christoval 00 30 tab, 0 Refill(s) Aspirin 81 No 81 mg = 1 Me moria MG Chewable 1-02 tab, PO, l Tablet 18:16: Daily, # Daniel 00 30 tab, 0 Refill(s) Advair 2021-0 Yes 1 puff, Memoria Diskus 250 1-02 INHALATION l mcg-50 mcg 15:50: , BID, # 1 H ermann inhalation 00 ea, 3 powder Refill(s) Advair 2021-0 Yes 1 puff, Memoria Diskus 250 1-02 INHALATION l mcg-50 mcg 15:50: , BID, # 1 H ermann inhalation 00 ea, 3 powder Refill(s) Advair 0 Yes 1 puff, Memoria Diskus 250 1-02 INHALATION l mcg-50 mcg 15:50: , BID, # 1 H ermann inhalation 00 ea, 3 powder Refill(s) sertraline 0 Yes 100 mg = 1 M emoria 100 mg oral 1-02 tab, PO, l tablet 15:49: BID, 0 Daniel 00 Refill(s) sertraline 0 Yes 100 mg = 1 M emoria 100 mg oral 1-02 tab, PO, l tablet 15:49: BID, 0 Daniel 00 Refill(s) sertraline 0 Yes 100 mg = 1 M emoria 100 mg oral 1-02 tab, PO, l tablet 15:49: BID, 0 Christoval 00 Refill(s) Aspirin 81 No Notes: Memor ia MG Chewable -02 Take with l Tablet 15:00: food. Famotidine No Notes: Memor ia 1-02 (Same as: l 15:00: Pepcid) Saline No Notes: Memoria Flush 0.9% -02 (Same as: l 15:00: BD Posiflush) Aspirin 81 No Notes: Memor ia MG Chewable -02 Take with l Tablet 15:00: food. Famotidine No Notes: Memor ia 1-02 (Same as: l 15:00: Pepcid) Christoval 00 Saline No Notes: Memoria Flush 0.9% 05-08 (Same as: l 15:00: BD Christoval 00 Posiflush) Aspirin 81 No Notes: Memor ia MG Chewable 05-08 Take with l Tablet 15:00: food. Famotidine No Notes: Memor ia 05-08 (Same as: l 15:00: Pepcid) Saline No Notes: Memoria Flush 0.9% 05-08 (Same as: l 15:00: BD Christoval 00 Posiflush) Enoxaparin No 40 mg, Memor ia 05-08 Route: l 07:00: SUB-Q, Christoval 00 [id number], Dosing Weight 80.455, kg, Start date: 05/08/21 1:00:00 MOLD DRESSER, Duration: 30 day, Stop date: 06/06/21 1:00:00 MOLD DRESSER Omnipaque 0 No Notes: Memori a 350 05-08 (same l injectable 07:00: as:Omnipaq H ermann solution 00 ue 350). WASTE: F/P - Black; E - Municipal Trash Bin Enoxaparin No 40 mg, Memor ia 05-08 Route: l 07:00: SUB-Q, Christoval 00 [id number], Dosing Weight 80.455, kg, Start date: 05/08/21 1:00:00 MOLD DRESSER, Duration: 30 day, Stop date: 06/06/21 1:00:00 MOLD DRESSER Omnipaque 2021-0 No Notes: Memori a 350 05-08 (same l injectable 07:00: as:Omnipaq H ermann solution 00 ue 350). WASTE: F/P - Black; E - Municipal Trash Bin Enoxaparin 0 No 40 mg, Memor ia 05-08 Route: l 07:00: SUB-Q, Daniel 00 [id number], Dosing Weight 80.455, kg, Start date: 05/08/21 1:00:00 MOLD DRESSER, Duration: 30 day, Stop date: 06/06/21 1:00:00 MOLD DRESSER Omnipaque 2021-0 No Notes: Memori a 350 05-08 (same l injectable 07:00: as:Omnipaq H ermann solution 00 ue 350). WASTE: F/P - Black; E - Municipal Trash Bin rosuvastati No 10 mg = 1 M emoria n 10 MG 05-08 cap, PO, l Oral 06:44: Daily, 0 Daniel Capsule 00 Refill(s) Advair Yes INHALATION Memor ia Diskus 250 05-08 , BID, 0 l mcg-50 mcg 06:44: Refill(s) He rmann inhalation 00 powder rosuvastati No 10 mg = 1 M emoria n 10 MG 05-08 cap, PO, l Oral 06:44: Daily, 0 Christoval Capsule 00 Refill(s) Advair Yes INHALATION Memor ia Diskus 250 05-08 , BID, 0 l mcg-50 mcg 06:44: Refill(s) He rmann inhalation 00 powder rosuvastati No 10 mg = 1 M emoria n 10 MG 05-08 cap, PO, l Oral 06:44: Daily, 0 Daniel Capsule 00 Refill(s) Advair Yes INHALATION Memor ia Diskus 250 05-08 , BID, 0 l mcg-50 mcg 06:44: Refill(s) He rmann inhalation 00 powder Eliquis No Notes: Memoria 05-08 Same as: l 06:43: Eliquis Christoval 00 glycopyrrol Yes 1 mg = 1 Me moria ate 1 mg 05-08 tab, PO, l oral tablet 06:43: BID, 0 Herm scotty 00 Refill(s) Eliquis No Notes: Memoria 05-08 Same as: l 06:43: Eliquis Daniel 00 glycopyrrol Yes 1 mg = 1 Me moria ate 1 mg -02 tab, PO, l oral tablet 06:43: BID, 0 Herm scotty 00 Refill(s) Eliquis No Notes: Memoria 05-08 Same as: l 06:43: Eliquis Daniel 00 glycopyrrol Yes 1 mg = 1 Me moria ate 1 mg 02 tab, PO, l oral tablet 06:43: BID, 0 Herm scotty 00 Refill(s) Acetaminoph No Notes: Do M emoria en 05-08 not exceed l 06:42: 4 gm/day. Daniel 00 (Same as: Tylenol) Saline No Notes: Memoria Flush 0.9% 05-08 (Same as: l 06:42: BD Daniel 00 Posiflush) apixaban Yes 2.5 mg = 1 Mem oria 2.5 MG Oral 05-08 tab, PO, l Tablet 06:42: BID, 0 Christoval [Eliquis] 00 Refill(s) Acetaminoph No Notes: Do M emoria en 05-08 not exceed l 06:42: 4 gm/day. Christoval 00 (Same as: Tylenol) Saline No Notes: Memoria Flush 0.9% 05-08 (Same as: l 06:42: BD Daniel 00 Posiflush) apixaban Yes 2.5 mg = 1 Mem oria 2.5 MG Oral 05-08 tab, PO, l Tablet 06:42: BID, 0 Daniel [Eliquis] 00 Refill(s) Acetaminoph No Notes: Do M emoria en 05-08 not exceed l 06:42: 4 gm/day. Christoval 00 (Same as: Tylenol) Saline No Notes: Memoria Flush 0.9% 05-08 (Same as: l 06:42: BD Daniel 00 Posiflush) apixaban Yes 2.5 mg = 1 Mem oria 2.5 MG Oral 05-08 tab, PO, l Tablet 06:42: BID, 0 Christoval [Eliquis] 00 Refill(s) Sodium No 250 mL, Memoria Chloride 05-08 250 ml/hr, l 0.9% 06:41: Infuse Christoval (Bolus) IV 00 Over: 1 hr, Route: IV, 250, Drug form: INJ, ONCE, Priority: STAT, Dosing Weight 80.455 kg, Start date: 05/08/21 0:41:00 MOLD DRESSER, PRN Other -See Comment, 0 DilTIAZem 2022-0 Yes 360 mg = 1 Me moria (Eqv-Cardiz 1-02 cap, PO, l em CD) 360 06:41: Daily, 0 Her adan mg/24 hours 00 Refill(s) oral capsule, extended release DilTIAZem 2022-0 Yes 360 mg = 1 Me moria (Eqv-Cardiz 1-02 cap, PO, l em CD) 360 06:41: Daily, 0 Her adan mg/24 hours 00 Refill(s) oral capsule, extended release Sodium 2-0 No 250 mL, Memoria Chloride 1-02 250 ml/hr, l 0.9% 06:41: Infuse Daniel (Bolus) IV 00 Over: 1 hr, Route: IV, 250, Drug form: INJ, ONCE, Priority: STAT, Dosing Weight 80.455 kg, Start date: 05/08/21 0:41:00 MOLD DRESSER, PRN Other -See Comment, 0 DilTIAZem 2022-0 Yes 360 mg = 1 Me moria (Eqv-Cardiz 1-02 cap, PO, l em CD) 360 06:41: Daily, 0 Her adan mg/24 hours 00 Refill(s) oral capsule, extended release DilTIAZem 2022-0 Yes 360 mg = 1 Me moria (Eqv-Cardiz 1-02 cap, PO, l em CD) 360 06:41: Daily, 0 Her adan mg/24 hours 00 Refill(s) oral capsule, extended release Sodium 2-0 No 250 mL, Memoria Chloride 1-02 250 ml/hr, l 0.9% 06:41: Infuse Daniel (Bolus) IV 00 Over: 1 hr, Route: IV, 250, Drug form: INJ, ONCE, Priority: STAT, Dosing Weight 80.455 kg, Start date: 05/08/21 0:41:00 MOLD DRESSER, PRN Other -See Comment, 0 DilTIAZem 2022-0 Yes 360 mg = 1 Me moria (Eqv-Cardiz 1-02 cap, PO, l em CD) 360 06:41: Daily, 0 Her adan mg/24 hours 00 Refill(s) oral capsule, extended release DilTIAZem 2022-0 Yes 360 mg = 1 Me moria (Eqv-Cardiz 1-02 cap, PO, l em CD) 360 06:41: Daily, 0 Her adan mg/24 hours 00 Refill(s) oral capsule, extended release metoprolol 2021-0 Yes 25 mg = 1 Me moria tartrate 25 -02 tab, PO, l mg oral 06:40: Daily, 0 Quentin n tablet 00 Refill(s) metoprolol 2021-0 Yes 25 mg = 1 Me moria tartrate 25 -02 tab, PO, l mg oral 06:40: Daily, 0 Quentin n tablet 00 Refill(s) metoprolol 2021-0 Yes 25 mg = 1 Me moria tartrate 25 -02 tab, PO, l mg oral 06:40: Daily, 0 Quentin n tablet 00 Refill(s) olmesartan 2021-0 Yes 5 mg = 1 Mem oria 5 mg oral -02 tab, PO, l tablet 06:39: Daily, 0 Christoval 00 Refill(s) olmesartan 2-0 Yes 5 mg = 1 Mem oria 5 mg oral -02 tab, PO, l tablet 06:39: Daily, 0 Christoval 00 Refill(s) olmesartan 2-0 Yes 5 mg = 1 Mem oria 5 mg oral -02 tab, PO, l tablet 06:39: Daily, 0 Refill(s) Dexilant 2021-0 Yes 60 mg, PO, Mem oria -02 Daily, 0 l 06:38: Refill(s) Dexilant 2021-0 Yes 60 mg, PO, Mem oria -02 Daily, 0 l 06:38: Refill(s) Dexilant 2021-0 Yes 60 mg, PO, Mem oria -02 Daily, 0 l 06:38: Refill(s) Dexilant 2021-0 Yes 60 mg, PO, Mem oria 1-02 Daily, 0 l 06:38: Refill(s) Dexilant 2-0 Yes 60 mg, PO, Mem oria -02 Daily, 0 l 06:38: Refill(s) Dexilant 2021-0 Yes 60 mg, PO, Mem oria 1-02 Daily, 0 l 06:38: Refill(s) levothyroxi 2021-0 Yes 88 Memori a ne 88 mcg 1-02 microgram l (0.088 mg) 06:37: = 1 cap, Her adan oral 00 PO, Daily, capsule # 30 cap, 3 Refill(s) levothyroxi Yes 88 Memori a ne 88 mcg 1-02 microgram l (0.088 mg) 06:37: = 1 cap, Her adan oral 00 PO, Daily, capsule # 30 cap, 3 Refill(s) levothyroxi Yes 88 Memori a ne 88 mcg 1-02 microgram l (0.088 mg) 06:37: = 1 cap, Her adan oral 00 PO, Daily, capsule # 30 cap, 3 Refill(s) Aspirin No Notes: Memoria - Take with l 19:10: food. Aspirin No Notes: Memoria 05-07 Take with l 19:10: food. Aspirin No Notes: Memoria 05-07 Take with l 19:10: food. Zofran No Notes: Memoria 05-07 (Same as: l 17:38: Zofran) Daniel 00 MEDICATION WASTE Product Size: 4 mg Product Wasted: ___ mg Zofran No Notes: Memoria 05-07 (Same as: l 17:38: Zofran) Daniel 00 MEDICATION WASTE Product Size: 4 mg Product Wasted: ___ mg Zofran No Notes: Memoria 05-07 (Same as: l 17:38: Zofran) Daniel 00 MEDICATION WASTE Product Size: 4 mg Product Wasted: ___ mg Saline No Notes: Memoria Flush 0.9% 05-07 Same as: l 16:59: BD Posiflush Sterile Saline No Notes: Memoria Flush 0.9% 05-07 Same as: l 16:59: BD Posiflush Sterile Saline No Notes: Memoria Flush 0.9% 05-07 Same as: l 16:59: BD Posiflush Sterile sertraline 2021-0 Yes 200mg QD Take [address] [facility] ([facility]) 6-14 tablets [facility] 100 MG 00:00: (200 mg Medical tablet 00 total) by Center mouth daily. sertraline 2020-0 Yes 200mg QD Take [address] [facility] ([facility]) 6-14 tablets [facility] 100 MG 00:00: (200 mg Medical tablet 00 total) by Center mouth daily. sertraline 2020-0 Yes 200mg QD Take [address] [facility] ([facility]) 6-14 tablets [facility] 100 MG 00:00: (200 mg Medical tablet 00 total) by Center mouth daily. sertraline 2020-0 Yes 200mg QD Take [address] [facility] ([facility]OL[place]) 6-14 tablets [facility] 100 MG 00:00: (200 mg Medical tablet 00 total) by Center mouth daily. sertraline 2020-0 Yes 200mg QD Take [address] [facility] (ZOL[place]) 6-14 tablets [facility] 100 MG 00:00: (200 mg Medical tablet 00 total) by Center mouth daily. levothyroxi 0 Yes TAKE [address] [facility] ne 2-11 TABLET BY [facility] (SYNTHROID, 00:00: MOUTH Medic al LEVOTHROID) 00 DAILY Center 112 MCG tablet levothyroxi 0 Yes TAKE [address] [facility] ne 2-11 TABLET BY [facility] (SYNTHROID, 00:00: MOUTH Medic al LEVOTHROID) 00 DAILY Center 112 MCG tablet levothyroxi 2020-0 Yes TAKE [address] [facility] ne 2-11 TABLET BY [facility] (SYNTHROID, 00:00: MOUTH Medic al LEVOTHROID) 00 DAILY Center 112 MCG tablet levothyroxi 2020-0 Yes TAKE [address] [facility] ne 2-11 TABLET BY [facility] (SYNTHROID, 00:00: MOUTH Medic al LEVOTHROID) 00 DAILY Center 112 MCG tablet levothyroxi 2020-0 Yes TAKE [address] [facility] ne 2-11 TABLET BY [facility] (SYNTHROID, 00:00: MOUTH Medic al LEVOTHROID) 00 DAILY Center 112 MCG tablet fluticasone 2020-0 Yes 1{puff} Q.5D Inhale [address] [facility] -salmeterol 2-01 puff by [place] (ADVAIR) 13:46: mouth via Medi elena 250-50 46 inhaler 2 Center mcg/dose (two) diskus times inhaler daily. dexlansopra 2021-0 Yes 60mg QD Take [address] [facility] zole 60 mg 2-01 by mouth [facility] capsule 13:46: daily. [place] [id number] Center albuterol-i Yes 2{puff} Inhale [address] [facility] pratropium 2-01 puffs by [facility] (COMBIVENT) 13:46: mouth via M edical 18 46 inhaler Center mcg/actuati every [...] St (CARDIZEM 2-01 le} capsule by [facility] CD) 360 MG 13:46: mouth Medica l 24 hr 46 daily. Center capsule fluticasone Yes 1{puff} Q.5D Inhale [address] [facility] -salmeterol 2-01 puff by [facility] (ADVAIR) 13:46: mouth via [facility] elena 250-50 46 inhaler 2 Center mcg/dose (two) diskus times inhaler daily. dexlansopra Yes 60mg QD Take [address] [facility] zole 60 mg 2-01 by mouth [facility] capsule 13:46: daily. [place] [address] Center albuterol-i Yes 2{puff} Inhale [address] [facility] pratropium 2-01 puffs by [facility] (COMBIVENT) 13:46: mouth via M edical 18-103 46 inhaler Center mcg/actuati every [...] [facility] (CARDIZEM 2-01 le} capsule by [employer] [facility] CD) 360 MG 13:46: mouth Medica l 24 hr 46 daily. Center capsule fluticasone Yes 1{puff} Q.5D Inhale [address] [facility] -salmeterol 2-01 puff by [facility] (ADVAIR) 13:46: mouth via [facility] elena 250-50 46 inhaler 2 Center mcg/dose (two) diskus times inhaler daily. dexlansopra Yes 60mg QD Take [address] [facility] zole 60 mg 2-01 by mouth [facility] capsule 13:46: daily. Medical 46 Center albuterol-i 0 Yes 2{puff} Inhale [address] [facility] pratropium [...] puffs by [facility] (COMBIVENT) 13:46: mouth via M edical 18 46 inhaler Center mcg/actuati every [...] puffs by [facility] (COMBIVENT) 13:46: mouth via M edical 18 46 inhaler Center mcg/actuati every [...] mouth Medica l 24 hr 46 daily. [place] capsule olmesartan Yes [facility]KE [facility] ([facility]IC[facility] 5 1-22 TABLET BY [facility] MG tablet 00:00: MOUTH Medical 00 DAILY Center olmesartan Yes TAKE 1 [facility] (BENICAR) 5 1-22 TABLET BY [facility] MG tablet 00:00: MOUTH Medical 00 DAILY Center olmesartan Yes TAKE 1 [facility] (BENIC[facility]) 5 1-22 TABLET BY [facility] MG tablet 00:00: MOUTH Medical 00 DAILY Center olmesartan Yes TAKE 1 [facility] (BENICAR) 5 1-22 TABLET BY [facility] MG tablet 00:00: MOUTH Medical 00 DAILY [place] olmesartan Yes TAKE 1 [facility] (BENICAR) 5 1-22 TABLET BY [facility] MG tablet 00:00: MOUTH Medical 00 DAILY Center metoprolol 2020-0 Yes 25mg QD Take [address] succinate 2-24 by mouth [facility] (TOPROL-XL) 00:00: daily. Medi elena 25 MG 24 hr 00 Center tablet metoprolol 2020-0 Yes 25mg QD Take [address] succinate 2-24 by mouth [facility] (TOPROL-XL) 00:00: daily. Medi elena 25 MG 24 hr 00 Center tablet metoprolol 2020-0 Yes 25mg QD Take [address] succinate 2-24 by mouth [facility] (TOPROL-XL) 00:00: daily. Medi elena 25 MG 24 hr 00 Center tablet metoprolol 2020-0 Yes 25mg QD Take [address] succinate 2-24 by mouth [facility] (TOPROL-XL) 00:00: daily. Medi elena 25 MG 24 hr 00 Center tablet metoprolol 2020-0 Yes 25mg QD Take [address] succinate 2-24 by mouth [facility] (TOPROL-XL) 00:00: daily. Medi elena 25 MG 24 hr 00 Center tablet rosuvastati Yes 10mg QD Take [address] [facility] (CRESTOR) 6-26 by mouth [facility] 10 MG 00:00: daily. Medical tablet 00 [place] rosuvastati Yes 10mg QD Take [address] [facility] (CRESTOR) 6-26 by mouth Luke s 10 MG 00:00: daily. Medical tablet 00 [place] rosuvastati Yes 10mg QD Take [address] [facility] (CRESTOR) 6-26 by mouth Luke s 10 MG 00:00: daily. Medical tablet 00 [place] rosuvastati Yes 10mg QD Take [address] [facility] (CRESTOR) 6-26 by mouth Luke s 10 MG 00:00: daily. Medical tablet 00 [place] rosuvastati Yes 10mg QD Take [address] [facility] (CRESTOR) 6-26 by mouth Luke s 10 MG 00:00: daily. Medical tablet 00 [place] erythromyci Yes APPLY THIN [facility] (ROMYCIN) 6-13 RIBBON TO [facility] 5 mg/gram 00:00: INTO BOTH Med ical (0.5 %) 00 EYES AT [place] ophthalmic BEDTIME ointment erythromyci Yes APPLY THIN [facility] (ROMYCIN) 6-13 RIBBON TO [facility] es 5 mg/gram 00:00: INTO BOTH Med ical (0.5 %) 00 EYES AT Center ophthalmic BEDTIME ointment erythromyci Yes APPLY THIN [facility] (ROMYCIN) 6-13 RIBBON TO [facility] es 5 mg/gram 00:00: INTO BOTH Med ical (0.5 %) 00 EYES AT Center ophthalmic BEDTIME ointment erythromyci Yes APPLY THIN [facility] (ROMYCIN) 6-13 RIBBON TO [facility] es 5 mg/gram 00:00: INTO BOTH Med ical (0.5 %) 00 EYES AT Center ophthalmic BEDTIME ointment erythromyci Yes APPLY THIN [...] Date Status Commen ts Source Name Name [employer] SARS-CoV-2 2020-07-04 Completed Univer sity of Vaccination (Purple 00:00:00 Geni MCCRAY Cap) [place] [facility] SARS-CoV-2 2020-07-04 Completed Univer sity of Vaccination (Purple 00:00:00 Geni MCCRAY Cap) Max [facility] SARS-CoV-2 2020-07-04 Completed Univer sity of Vaccination (Purple 00:00:00 Geni MCCRAY Cap) [facility] SARS-CoV-2 2020-07-04 Completed Univer sity of Vaccination (Purple 00:00:00 [facility] MCCRAY Cap) [facility] SARS-CoV-2 2020-07-04 Completed Univer sity of Vaccination (Purple 00:00:00 [place] Cap) [facility] SARS-CoV-2 2020-07-04 Completed Univer sity of Vaccination (Purple 00:00:00 [place] Cap) [facility] SARS-CoV-2 2020-06-13 Completed Univer sity of Vaccination (Purple 00:00:00 [place] Cap) [facility] SARS-CoV-2 2020-06-13 Completed Univer sity of Vaccination (Purple 00:00:00 [place] Cap) [facility] SARS-CoV-2 2020-06-13 Completed Univer sity of Vaccination (Purple 00:00:00 [place] Cap) [facility] SARS-CoV-2 2020-06-13 Completed Univer sity of Vaccination (Purple 00:00:00 [place] Cap) [facility] SARS-CoV-2 2020-06-13 Completed Univer sity of Vaccination (Purple 00:00:00 [place] Cap) [facility] SARS-CoV-2 2020-06-13 Completed Univer sity of Vaccination (Purple 00:00:00 [place] Cap) [facility] INFLUENZA QIV 2020-02-[address] [facility] ADJUVANTED PF IM 00:00:00 [facility] ([id number]) INFLUENZA QIV 2020-02-[address] [facility] ADJUVANTED PF IM 00:00:00 [facility] ([id number]) INFLUENZA QIV 2020-02-[address] [facility] ADJUVANTED PF IM 00:00:00 [facility] ([id number]) INFLUENZA QIV 2020-02-[address] [facility] ADJUVANTED PF IM 00:00:00 [facility] ([id number]) INFLUENZA QIV 2020-02-[address] [facility] ADJUVANTED PF IM 00:00:00 [facility] ([id number]) Influenza, High Dose 2019-03-[address] [facility] Seasonal 00:00:00 [facility] Influenza, High Dose 2019-03-[address] [facility] Seasonal 00:00:00 [facility] Influenza, High Dose 2019-03-[address] [facility] Seasonal 00:00:00 [facility] Influenza, High Dose 2019-03-[address] [facility] Seasonal 00:00:00 [facility] Influenza, High Dose 2019-03-[address] [facility] Seasonal 00:00:00 [facility] Pneumococcal 2015-05-[address] [facility] Conjugate (Prevnar) 00:00:00 [facility] Pneumococcal 2015-05-[address] [facility] Conjugate (Prevnar) 00:00:00 [facility] Pneumococcal 2015-05-[address] [facility] Conjugate (Prevnar) 00:00:00 [facility] Pneumococcal 2015-05-[address] [facility] Conjugate (Prevnar) 00:00:00 [facility] Pneumococcal 2015-05-[address] [facility] Conjugate (Prevnar) 00:00:00 [facility] Influenza TIV (IM) 2014-02-[address] [facility] 00:00:00 [facility] Influenza TIV (IM) 2014-02-[address] [facility] 00:00:00 [facility] Influenza TIV (IM) 2014-02-[address] [facility] 00[facility]00:00 [facility] Influenza TIV (IM) 2014-02-[address] [facility] 00:00:00 [facility] Influenza TIV (IM) 2014-02-[address] [facility] 00:00:00 [facility] Pneumococcal 2012-05-[address] [facility] Polysaccharide [...] 80.831 kg Heart Rate 2022-03-03 12:14:42 [facility] Systolic (mm Hg) 2022-03-03 12:14:33 [facility] Diastolic (mm Hg) 2022-03-03 12:14:33 [facility] Temperature Oral (F) 2022-03-03 12:14:05 97.6 F [facility] Temperature Oral (F) 2022-03-02 12:58:33 97.4 F [facility] Height 2022-02-15 01:23:00 5 [ft_i] [facility] Weight 2022-02-15 01:23:00 [facility] BMI Calculated 2022-02-15 01:23:00 [facility] Heart Rate 2022-02-14 20:31:50 [facility] Systolic (mm Hg) 2022-02-14 20:31:46 [facility] Diastolic (mm Hg) 2022-02-14 20:31:46 [facility] Temperature Oral (F) 2022-02-14 20:31:39 98.8 F [facility] Heart Rate 2022-02-13 10:16:21 [facility] Systolic (mm Hg) 2022-02-13 10:16:13 [facility] Diastolic (mm Hg) 2022-02-13 10:16:13 [facility] Heart Rate 2022-02-13 10:16:13 [facility] Temperature Oral (F) 2022-02-13 10:15:27 98.1 F [facility] Heart Rate 2022-02-13 05:18:18 [facility] Systolic (mm Hg) 2022-02-13 05:18:13 [facility] Diastolic (mm Hg) 2022-02-13 05:18:13 [facility] Temperature Oral (F) 2022-02-13 05:18:00 97.9 [facility] Respitory Rate 2022-02-13 05:18:00 [facility] Temperature Oral (F) 2022-02-13 05:17:27 97.9 F [facility] Systolic (mm Hg) 2022-02-13 02:05:17 [facility] Diastolic (mm Hg) 2022-02-13 02:05:17 [facility] Respitory Rate 2022-02-13 02:05:00 [facility] Respitory Rate 2022-02-12 21:50:19 [facility] Height 2022-02-12 18:10:00 5 [ft_i] [facility] Weight 2022-02-12 18:10:00 [facility] BMI Calculated 2022-02-12 18:10:00 [facility] Respitory Rate 2022-02-12 15:57:00 [facility] Systolic (mm Hg) 2022-02-12 15:57:00 Mario rial Daniel Diastolic (mm Hg) 2022-02-12 15:57:00 [facility] Temperature Oral (F) 2022-02-12 15:57:00 97.5 F [facility] Respitory Rate 2022-02-12 14:12:00 [facility] Systolic (mm Hg) 2022-02-12 14:12:00 Mario rial Daniel Diastolic (mm Hg) 2022-02-12 14:12:00 [facility] Weight 2022-02-12 12:27:00 [facility] Systolic (mm Hg) 2022-02-12 12:27:00 [facility] Diastolic (mm Hg) 2022-02-12 12:27:00 [facility] Heart Rate 2022-02-12 12:27:00 [facility] Respitory Rate 2022-02-12 12:27:00 [facility] Temperature Oral (F) 2022-02-12 12:27:00 97.6 F [facility] Temperature Oral (F) 2022-02-08 20:53:00 98.3 F [facility] Heart Rate 2022-02-08 20:53:00 [facility] Respitory Rate 2022-02-08 20:53:00 [facility] Systolic (mm Hg) 2022-02-08 20:53:00 [facility] Diastolic (mm Hg) 2022-02-08 20:53:00 [facility] Temperature Oral (F) 2022-02-08 18:00:00 98.2 F [facility] Heart Rate 2022-02-08 18:00:00 [facility] Systolic (mm Hg) 2022-02-08 18:00:00 [facility] Diastolic (mm Hg) 2022-02-08 18:00:00 [facility] Height 2022-02-08 16:06:00 160.02 cm [facility] BMI Calculated 2022-02-08 16:06:00 [facility] Weight 2022-02-08 16:06:00 [facility] Systolic (mm Hg) 2022-02-08 16:06:00 Mario rial Daniel Diastolic (mm Hg) 2022-02-08 16:06:00 [facility] Heart Rate 2022-02-08 16:06:00 [facility] Respitory Rate 2022-02-08 16:06:00 [facility] Temperature Oral (F) 2022-02-08 16:06:00 98.2 F [facility] Heart Rate 2021-05-08 17:54:01 [facility] Systolic (mm Hg) 2021-05-08 17:53:19 [facility] Diastolic (mm Hg) 2021-05-08 17:53:19 [facility] Heart Rate 2021-05-08 17:53:19 [facility] Heart Rate 2021-05-08 13:22:39 [facility] Respitory Rate 2021-05-08 13:22:39 [facility] Systolic (mm Hg) 2021-05-08 13:22:05 Mario rial Daniel Diastolic (mm Hg) 2021-05-08 13:22:05 [facility] Temperature Oral (F) 2021-05-08 13:21:52 98.1 F [facility] Systolic (mm Hg) 2021-05-08 10:37:12 [facility] Diastolic (mm Hg) 2021-05-08 10:37:12 [facility] Temperature Oral (F) 2021-05-08 10:36:31 97.7 F [facility] Temperature Oral (F) 2021-05-08 06:15:00 98.4 F [facility] Height 2021-05-08 06:09:00 160.02 cm [facility] Weight 2021-05-08 06:09:00 [facility] BMI Calculated 2021-05-08 06:09:00 [facility] Height 2021-05-07 16:57:00 160.02 cm [facility] BMI Calculated 2021-05-07 16:57:00 [facility] Weight 2021-05-07 16:57:00 [facility] Systolic (mm Hg) 2021-05-07 16:57:00 Mario rial Daniel Diastolic (mm Hg) 2021-05-07 16:57:00 [facility] Heart Rate 2021-05-07 16:57:00 [facility] Respitory Rate 2021-05-07 16:57:00 [facility] Temperature Oral (F) 2021-05-07 16:57:00 98.9 F [facility] Procedures Procedure Date / Time Performing Clinician Source Performed Catheterization of vein [facility] Hysterectomy [facility] 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 Abdominal wall hernia [facility] ermann procedure Plan of Care [...] SCREENING] Future Scheduled 2022-03-04 COVID-19 Vaccination [facility] Test 12:55:12 (3 - [facility] [code = [facility] INFLUENZA VACCINE (#1)] Future Scheduled 2022-01-[address] [facility] Test 00:00:00 (#1) [code = Medical Center INFLUENZA VACCINE (#1)] Future Scheduled 2022-01-[address] [facility] Test 00:00:00 (#1) [code = [facility] INFLUENZA VACCINE (#1)] Future Scheduled 2021-06-07 [...] Screening (12+)] Future Scheduled 2021-05-25 COVID-19 Vaccination [facility] Test 06:41:22 (3 - Booster for MD [...] DXA [facility] Test 00:00:00 SCAN] [facility] Future Scheduled 2019-08-28 DXA SCAN [code = DXA [facility] Test 00:00:00 SCAN] [facility] Future Scheduled 1989 SHINGLES VACCINES ([address] [facility] Test 00:00:00 of 2) [code = [facility] SHINGLES VACCINES (1 of 2)] Future Scheduled 1989 SHINGLES VACCINES ([address] [facility] Test 00:00:00 of 2) [code = [facility] SHINGLES VACCINES (1 of 2)] Future Scheduled 1989 SHINGLES VACCINES ([address] [facility] Test 00:00:00 of 2) [code = [facility] SHINGLES VACCINES (1 of 2)] Future Scheduled 1989 SHINGLES VACCINES ([address] [facility] Test 00:00:00 of 2) [code = [facility] SHINGLES VACCINES (1 of 2)] Future Scheduled 1989 SHINGLES VACCINES ([address] [facility] Test 00:00:00 of 2) [code = [facility] SHINGLES VACCINES (1 of 2)] Future [...] Type Clinicians Facility Department ID 2022-05-17 Outpatient [facility] [id number] [place] 16:17:35 [id number] [facility] 2022-05-06 Outpatient 3 [id number] ENCPL [facility] [id number] [facility] 15:00:50 [facility] [place] [facility] 2022-05-05 Outpatient 3 [id number] ENCPL REF [id number] [facility] 11:13:10 [facility] [place] 2022-04-10 Outpatient [facility] [id number] [place] 08:17:45 [id number] [facility] 2022-04-07 Outpatient [facility] [id number] [place] 15:08:10 [id number] [facility] 2022-03-24 Outpatient Rafael, PULSE PULSE [id number] Pulse 08:39:04 Bert 2022-03-16 [facility] P[facility]SE PUL[facility] [id number] P[place] 09:45[facility] Outpatient Rafael, PULSE PULSE [id number] Pulse 13:25:02 Bert 2022-02-09 Outpatient Rafael, PULSE PULSE [id number] Pulse 09:09:01 Bert 2021-12-19 Outpatient PULSE PULSE [id number] Pulse 11:00:03 [id number] 2022-02-15 2022-03-03 Inpatient [facility] [id number] Memoria 00:57:00 19:40:00 Rehab r Daniel 02 l [facility] 2022-02-15 2022-03-03 Inpatient [facility] [id number] Memoria 00:57:00 19:40:00 Rehab r Daniel 02 l [facility] 2022-02-14 2022-03-03 Outpatient Anthony, [facility] [id number] 19:57:00 14:40:00 [facility] 2022-02-14 2022-03-03 Inpatient ANTHONY, [facility] [id number] [facility] 19:57:00 14:40:00 [facility] 2022-02-12 2022-02-14 Inpatient [facility] [id number] Memoria 17:26:00 23:56:00 r Daniel 82 l [place] [facility] 2022-02-12 2022-02-14 Inpatient [facility] [id number] Memoria 17:26:00 23:56:00 r Daniel 82 l [place] 2022-02-12 2022-02-14 [facility] [id number] 12:26:00 18:56:00 Micki 81 Katty 2022-02-12 2022-02-14 Inpatient U LOKI, [facility] [id number] FB 12:26:00 18:56:00 MICKI 2022-02-12 2022-02-12 Emergency [facility] [id number] Memoria 12:25:03 16:30:00 r Daniel 01 [facility] 2022-02-12 2022-02-12 Emergency [facility]Fl[facility] [id number] Memoria 12:25:03 16:30:00 r Daniel 01 [facility] 2022-02-12 2022-02-12 Outpatient Brandon Saunders [facility] [id number] 12:26:00 12:26:00 82 2022-02-12 2022-02-12 Outpatient Tuttle, MHPL MHPL [id number] 07:25:03 11:30:00 Paco Gentile 2022-02-12 2022-02-12 Emergency E TUTTLE, MHBL MHBL [id number] MHBL 07:25:00 11:30:00 PACO 2022-02-12 2022-02-12 (TEL) PULSE PULSE [id number] Pu lse 00:00:00 00:00:00 2022-02-10 2022-02-10 [id number] Est PULSE PULSE [id number] Pulse 00:00:00 00:00:00 Patient 2022-02-08 2022-02-08 Emergency [facility] [id number] Memoria 16:05:43 21:02:00 r Daniel 00 [facility] 2022-02-08 2022-02-08 Emergency [facility] [id number] Memoria 16:05:43 21:02:00 r Daniel 00 [facility] 2022-02-08 2022-02-08 Outpatient Jodie, MHSE MHSE [id number] 11:05:43 16:02:00 Jennyfermarianne Mendozae 00 2022-02-08 2022-02-08 Emergency E JODIE, MHSE MHSE [id number] MH 11:05:00 16:02:00 JENNYFERMARIANNE padgett [facility] 2021-10-30 2021-10-30 [id number] 00:00:00 00:00:00 Carson Josemanuel [facility] 2021-10-30 2021-10-30 [facility] [id number] 00:00:00 00:00:00 Carson Josemanuel [facility] 2021-05-27 2021-05-27 [facility] [id number] 00:[facility]00 [facility] 2021-05-11 2021-05-[address] [facility] [id number] 00:00[facility]00 00:00:00 [facility] 2021-05-08 2021-05-08 Observatio [facility] [id number] Memoria 05:47:00 20:00:00 n r Daniel l [facility] 2021-05-08 2021-05-08 Observatio [facility]Flavo [facility] [id number] Memoria 05:47:00 20:00:00 n renetta Sanchez [facility] 2021-05-07 2021-05-08 Outpatient ANTI Cabrera MHSE [id number] 23:47:00 14:00:00 Quan 2021-05-07 2021-05-08 Outpatient E SHAHRIAR CABRERASE [address] 23:47:00 [facility] 2021-05-08 Emergency [facility] [id number] Memoria 16:51:35 05:27:00 r Daniel 00 [facility] 2021-05-07 2021-05-08 Emergency [facility] [id number] Memoria 16:51:35 05:27:00 r Daniel 00 [facility] 2021-05-07 2021-05-07 Outpatient Ruthann Coronado MHPL MHPL [id number] 10:51:35 23:27:00 Q 2021-05-07 2021-05-07 Outpatient Ruthann Coronado MHPL MHPL [id number] 10:51:35 23:27:00 Q 2021-05-07 2021-05-07 Emergency E RUTHANN CORONADO MHBL MHBL [id number] MHBL 10:51:00 23:27:00 2021-04-21 2021-04-21 [id number] 00:00:00 00:00:00 Carson Josemanuel [facility] 2021-02-17 2021-02-17 Outpatient REBEKAH [facility] [id number] 00:00:00 00:00:00 [facility] 2020-12-06 2020-12-06 Outpatient REBEKAH [facility] [id number] 00:00:00 00:00:00 [facility] 2020-07-04 2020-07-04 Outpatient EL MDA MDA [id number] 11:38:37 12:01:58 Urinaldo jack 2020-06-13 2020-06-13 Outpatient EL MDA MDA [id number] 11:40:51 12:01:01 Uri jack 2020-06-07 2020-06-07 Outpatient REBEKAH, [facility] [id number] 00:00:00 00:00:00 [facility] 2019-07-17 2019-07-17 Outpatient [facility] [id number] 00:00:00 00:00:00 [id number] [facility] 2017-04-18 2017-05-18 OP Therapy nullFlavo SMR [id number] Memoria 18:15:00 05:59:00 Patients r Carla 06 l [place] [facility] 2017-04-18 2017-05-18 OP Therapy nullFlavo SMR [id number] Memoria 18:15:00 05:59:00 Patients r Carla 06 l [place] [facility] 2017-04-18 2017-05-17 Outpatient Rebekah, [id number]. [id number] 12:15:00 23:59:00 Carson Abernathy [id number] 5.57 2017-03-14 2017-04-13 OP Therapy nullFlavo SMR [id number] Memoria 17:52:00 05:59:00 Patients r Carla 05 l [place] [facility] 2017-03-14 2017-04-13 OP Therapy nullFlavo SMR [id number] Memoria 17:52:00 05:59:00 Patients r Carla 05 l [place] [facility] 2017-03-14 2017-04-12 Outpatient Rebekah, 2.16.840. [id number]. 3 [id number] 11:52:00 23:59:00 Carson Abernathy [id number] 5.57 2017-02-09 2017-03-11 OP Therapy nullFlavo [facility] [id number] Memoria 19:02:00 04:59:00 Patients r Carla Bahena [facility] 2017-02-09 2017-03-11 OP Therapy nullFlavo [facility] [id number] Memoria 19:02:00 04:59:00 Patients r Carla 04 maged [facility] 2017-02-09 2017-03-10 Outpatient Rebekah 2.16.840. [id number]. 3 [id number] 14:02:00 23:59:00 Carson Abernathy [id number] 5.57 Results Test Description Test Time Test Comments Results Result Comments Source CHEMISTRY 2022-03-03 11:20:00 Test Item Value Reference Range Interpretation Comme nts Glucose Lvl (test code = Glucose Lvl) 83 70-99 [facility]CnlgefsLRAOZJRHN4874-03-08 11:20:00 Test Item Value Reference Range Interpretation Comments BUN (test code = BUN) 24 11- [facility] CenterEmuzabsAKZQRYWFM0667-62-97 11:20:00 Test Item Value Reference Range Interpretation Comments Creatinine Lvl (test code = Creatinine 1.00 0.50-1.40 Lvl) [facility] CenterYvtbyikNLYVVWIJT3637-43-17 11:20:00 Test Item Value Reference Range Interpretation Comments Sodium Lvl (test code = Sodium Lvl) 140 135-145 [facility] CenterCnnypevEJCYIASWW2692-63-33 11:20:00 Test Item Value Reference Range Interpretation Comments Potassium Lvl (test code = Potassium 4.1 3.5-5.1 Lvl) [facility] CenterWofczubXMLMAXKDD4031-57-88 11:20:00 Test Item Value Reference Range Interpretation Comments Chloride Lvl (test code = Chloride Lvl) 111 95-109 [facility] CenterSjkgbblZPHURRKGY4558-74-09 11:20:00 Test Item Value Reference Range Interpretation Comments CO2 (test code = CO2) 24-32 [facility] CenterBuyfvwyYYABVNPFW8906-23-95 11:20:00 Test Item Value Reference Range Interpretation Comments Calcium Lvl (test code = Calcium Lvl) 8.6 8.5-10.5 [facility] CenterFwnyxmaPDNMROCAV6140-65-30 11:20:00 Test Item Value Reference Range Interpretation Comments AGAP (test code = AGAP) 10.1 10.0-20.0 [place] [address]-10-28 11:20:00 Test Item Value Reference Range Interpretation Comments eGFR (test code = eGFR) 56 [place] 851592-10-28 11:20:00 Test Item Value Reference Range Interpretation Comments Segs (test code = Segs) 58.9 45.0-75.0 [place] 851592-10-28 11:20:00 Test Item Value Reference Range Interpretation Comments Lymphocytes (test code = Lymphocytes) 22.9 20.0-40.0 [place] [address]-10-28 11:20:00 Test Item Value Reference Range Interpretation Comments Monocytes (test code = Monocytes) 12.6 2.0-12.0 [place] [address]-10-28 11:20:00 Test Item Value Reference Range Interpretation Comments Eosinophils (test code = 4.3 See_Comment [A utomated message] The Eosinophils) system which ge nerated this result tra nsmitted reference range : <=4.0. The reference r fermín was not used to int erpret this result as normal/abnormal . [place] [address]-10-28 11:20:00 Test Item Value Reference Range Interpretation Comments Basophils (test code = 1.3 See_Comment [Aut omated message] The Basophils) system which ge nerated this result tra nsmitted reference range : <=1.0. The reference r fermín was not used to int erpret this result as normal/abnormal . [facility] CenterNmccjubKDHLRXUEMZ2616-62-51 11:20:00 Test Item Value Reference Range Interpretation Comments Neutrophils # (test code = Neutrophils 2.9 1.5-8.1 #) [place] [address]-10-28 11:20:00 Test Item Value Reference Range Interpretation Comments Lymphocytes # (test code = Lymphocytes 1.1 1.0-5.5 #) [place] [address]-10-28 11:20:00 Test Item Value Reference Range Interpretation Comments Monocytes # (test code 0.6 See_Comment [Aut omated message] The = Monocytes #) system which generated this result tra nsmitted reference range : <=0.8. The reference r fermín was not used to int erpret this result as normal/abnormal . [facility] CenterMdfgvujTOSBWHPOXU8815-19-79 11:20:00 Test Item Value Reference Range Interpretation Comments Eosinophils # (test code 0.2 See_Comment [A utomated message] The = Eosinophils #) system whic h generated this result tra nsmitted reference range : <=0.5. The reference r fermín was not used to int erpret this result as normal/abnormal . [facility] CenterFewbcodNZQTPSWAPO3777-52-95 11:20:00 Test Item Value Reference Range Interpretation Comments Basophils # (test code 0.1 See_Comment [Aut omated message] The = Basophils #) system which generated this result tra nsmitted reference range : <=0.2. The reference r fermín was not used to int erpret this result as normal/abnormal . [facility] CenterXzahoskSVEHBWNTJZ6275-45-29 11:20:00 Test Item Value Reference Range Interpretation Comments WBC X 10x3 (test code = WBC X 10x3) 5.0 3.7-10.4 [place] 851592-10-28 11:20:00 Test Item Value Reference Range Interpretation Comments RBC X 10x6 (test code = RBC X 10x6) 3.89 4.20-5.40 [place] 851592-10-28 11:20:00 Test Item Value Reference Range Interpretation Comments Hgb (test code = Hgb) 12.1 12.0-16.0 [place] 851592-10-28 11:20:00 Test Item Value Reference Range Interpretation Comments Hct (test code = Hct) 35.8 36.0-48.0 [place] 851592-10-28 11:20:00 Test Item Value Reference Range Interpretation Comments MCV (test code = MCV) 92.0 80.0-98.0 [place] [address]-10-28 11:20:00 Test Item Value Reference Range Interpretation Comments MCH (test code = MCH) 31.0 pg 27.0-31.0 [facility] CenterMjlxyqmYSULJCPXLK5004-31-28 11:20:00 Test Item Value Reference Range Interpretation Comments MCHC (test code = MCHC) 33.7 32.0-36.0 [place] 851592-10-28 11:20:00 Test Item Value Reference Range Interpretation Comments RDW (test code = RDW) 13.4 11.5-14.5 [facility] CenterPgfsahbZMIMKNNMJH9885-50-64 11:20:00 Test Item Value Reference Range Interpretation Comments Platelet (test code = Platelet) 139 133-450 [facility] CenterVjvngyvELIHFQLXOQ3924-82-78 11:20:00 Test Item Value Reference Range Interpretation Comments MPV (test code = MPV) 9.8 7.4-10.4 [place] 407322-10-28 11:20:00 Test Item Value Reference Range Interpretation Comments Glucose Lvl (test code = Glucose Lvl) 83 70-99 [facility] CenterFyzatpeOBJPFZQGP3484-11-84 11:20:00 Test Item Value Reference Range Interpretation Comments BUN (test code = BUN) 21 7-22 [place] 407322-10-28 11:20:00 Test Item Value Reference Range Interpretation Comments Creatinine Lvl (test code = Creatinine 1.00 0.50-1.40 Lvl) [facility] CenterOzzonipCCCVZCYQY8384-07-51 11:20:00 Test Item Value Reference Range Interpretation Comments Sodium Lvl (test code = Sodium Lvl) 140 135-145 [facility] CenterNmxxzxnKASMKOFEJ4115-31-44 11:20:00 Test Item Value Reference Range Interpretation Comments Potassium Lvl (test code = Potassium 4.1 3.5-5.1 Lvl) [facility] CenterLrusoquOSXDCGCVJ0526-60-59 11:20:00 Test Item Value Reference Range Interpretation Comments Chloride Lvl (test code = Chloride Lvl) 111 95-109 [facility] CenterAsuusneKTGWROGKX0428-24-51 11:20:00 Test Item Value Reference Range Interpretation Comments CO2 (test code = CO2) 23 24-32 [facility] CenterFdnwpneMPLKZRWED2292-06-09 11:20:00 Test Item Value Reference Range Interpretation Comments Calcium Lvl (test code = Calcium Lvl) 8.6 8.5-10.5 [facility] CenterYawlmcdAHALPKENO2123-75-32 11:20:00 Test Item Value Reference Range Interpretation Comments AGAP (test code = AGAP) 10.1 10.0-20.0 [facility] CenterRowqgikAOHBUOXHM2515-07-84 11:20:00 Test Item Value Reference Range Interpretation Comments eGFR (test code = eGFR) 56 [facility] CenterGbdraudJFREEKHUPL9392-95-95 11:20:00 Test Item Value Reference Range Interpretation Comments Segs (test code = Segs) 58.9 45.0-75.0 [place] [address]-10-28 11:20:00 Test Item Value Reference Range Interpretation Comments Lymphocytes (test code = Lymphocytes) 22.9 20.0-40.0 [place] [address]-10-28 11:20:00 Test Item Value Reference Range Interpretation Comments Monocytes (test code = Monocytes) 12.6 2.0-12.0 [place] [address]-10-28 11:20:00 Test Item Value Reference Range Interpretation Comments Eosinophils (test code = 4.3 See_Comment [A utomated message] The Eosinophils) system which ge nerated this result tra nsmitted reference range : <=4.0. The reference r fermín was not used to int erpret this result as normal/abnormal . [place] [address]-10-28 11:20:00 Test Item Value Reference Range Interpretation Comments Basophils (test code = 1.3 See_Comment [Aut omated message] The Basophils) system which ge nerated this result tra nsmitted reference range : <=1.0. The reference r fermín was not used to int erpret this result as normal/abnormal . [place] 851592-10-28 11:20:00 Test Item Value Reference Range Interpretation Comments Neutrophils # (test code = Neutrophils 2.9 1.5-8.1 #) [place] [address]-10-28 11:20:00 Test Item Value Reference Range Interpretation Comments Lymphocytes # (test code = Lymphocytes 1.1 1.0-5.5 #) [place] [address]-10-28 11:20:00 Test Item Value Reference Range Interpretation Comments Monocytes # (test code 0.6 See_Comment [Aut omated message] The = Monocytes #) system which generated this result tra nsmitted reference range : <=0.8. The reference r fermín was not used to int erpret this result as normal/abnormal . [place] [address]-10-28 11:20:00 Test Item Value Reference Range Interpretation Comments Eosinophils # (test code 0.2 See_Comment [A utomated message] The = Eosinophils #) system [facility] h generated this result tra nsmitted reference range : <=0.5. The reference r fermín was not used to int erpret this result as normal/abnormal . [facility] CenterRqreuyvQVAOXLVCGG1569-71-49 11:20:00 Test Item Value Reference Range Interpretation Comments Basophils # (test code 0.1 See_Comment [Aut omated message] The = Basophils #) system which generated this result tra nsmitted reference range : <=0.2. The reference r fermín was not used to int erpret this result as normal/abnormal . [facility] CenterVwpmrljXUACMHCJFY5946-58-94 11:20:00 Test Item Value Reference Range Interpretation Comments WBC X 10x3 (test code = WBC X 10x3) 5.0 3.7-10.4 [facility] CenterJwedzmuHCLINATFUP6584-28-17 11:20:00 Test Item Value Reference Range Interpretation Comments RBC X 10x6 (test code = RBC X 10x6) 3.89 4.20-5.40 [place] 851592-10-28 11:20:00 Test Item Value Reference Range Interpretation Comments Hgb (test code = Hgb) 12.1 12.0-16.0 [place] 851592-10-28 11:20:00 Test Item Value Reference Range Interpretation Comments Hct (test code = Hct) 35.8 36.0-48.0 [facility] CenterGsvgxqiOIGEXSBRYG3663-75-60 11:20:00 Test Item Value Reference Range Interpretation Comments MCV (test code = MCV) 92.0 80.0-98.0 [place] 851592-10-28 11:20:00 Test Item Value Reference Range Interpretation Comments MCH (test code = MCH) 31.0 pg 27.0-31.0 [facility] CenterGjxupkjOOTHTWUVNO4714-91-29 11:20:00 Test Item Value Reference Range Interpretation Comments MCHC (test code = MCHC) 33.7 32.0-36.0 [place] [address]-10-28 11:20:00 Test Item Value Reference Range Interpretation Comments RDW (test code = RDW) 13.4 11.5-14.5 [facility] CenterIausqzfGIGHTOKRGI0689-19-62 11:20:00 Test Item Value Reference Range Interpretation Comments Platelet (test code = Platelet) 139 133-450 [facility] CenterGxbjniuLDNGTTTCIB2576-49-27 11:20:00 Test Item Value Reference Range Interpretation Comments MPV (test code = MPV) 9.8 7.4-10.4 [facility] CenterUaxnjffIEEFUBXEC0554-45-33 11:20:00 Test Item Value Reference Range Interpretation Comments Glucose Lvl (test code = Glucose Lvl) 83 70-99 [facility] CenterOmeqdblXVOBJKOBW4428-83-94 11:20:00 Test Item Value Reference Range Interpretation Comments BUN (test code = BUN) 21 7-22 [facility] CenterPyxneokGDUDQFSKL9475-61-74 11:20:00 Test Item Value Reference Range Interpretation Comments Creatinine Lvl (test code = Creatinine 1.00 0.50-1.40 Lvl) [facility] CenterZwikxtwYWJKBYEHB8136-03-80 11:20:00 Test Item Value Reference Range Interpretation Comments Sodium Lvl (test code = Sodium Lvl) 140 135-145 [facility] CenterAypokabNNMURWFMS7252-86-13 11:20:00 Test Item Value Reference Range Interpretation Comments Potassium Lvl (test code = Potassium 4.1 3.5-5.1 Lvl) [facility] CenterIpfwppkRKZODFRNA9761-43-97 11:20:00 Test Item Value Reference Range Interpretation Comments Chloride Lvl (test code = Chloride Lvl) 111 95-109 [facility] CenterOykegxyLDXYJVICW3070-77-40 11:20:00 Test Item Value Reference Range Interpretation Comments CO2 (test code = CO2) 23 24-32 [facility] CenterBdmnjyuXUKVSUVTE8301-55-32 11:20:00 Test Item Value Reference Range Interpretation Comments Calcium Lvl (test code = Calcium Lvl) 8.6 8.5-10.5 [facility] CenterBjtwcnhDHGSBDOHI3589-55-66 11:20:00 Test Item Value Reference Range Interpretation Comments AGAP (test code = AGAP) 10.1 10.0-20.0 [facility] CenterRpgxkaqBDGCPOOBC6584-30-86 11:20:00 Test Item Value Reference Range Interpretation Comments eGFR (test code = eGFR) 56 [facility] CenterDmtblbfPFMRDPFGMG3754-53-53 11:20:00 Test Item Value Reference Range Interpretation Comments Segs (test code = Segs) 58.9 45.0-75.0 [facility] CenterXjefxlkNAUDDGCYTH6567-90-78 11:20:00 Test Item Value Reference Range Interpretation Comments Lymphocytes (test code = Lymphocytes) 22.9 20.0-40.0 [facility] CenterCwgjcdkEMQHPUNKAG5377-67-42 11:20:00 Test Item Value Reference Range Interpretation Comments Monocytes (test code = Monocytes) 12.6 2.0-12.0 [place] 851592-10-28 11:20:00 Test Item Value Reference Range Interpretation Comments Eosinophils (test code = 4.3 See_Comment [A utomated message] The Eosinophils) system which ge nerated this result tra nsmitted reference range : <=4.0. The reference r fermín was not used to int erpret this result as normal/abnormal . [place] [address]-10-28 11:20:00 Test Item Value Reference Range Interpretation Comments Basophils (test code = 1.3 See_Comment [Aut omated message] The Basophils) system which ge nerated this result tra nsmitted reference range : <=1.0. The reference r fermín was not used to int erpret this result as normal/abnormal . [place] [address]-10-28 11:20:00 Test Item Value Reference Range Interpretation Comments Neutrophils # (test code = Neutrophils 2.9 1.5-8.1 #) [place] [address]-10-28 11:20:00 Test Item Value Reference Range Interpretation Comments Lymphocytes # (test code = Lymphocytes 1.1 1.0-5.5 #) [place] [address]-10-28 11:20:00 Test Item Value Reference Range Interpretation Comments Monocytes # (test code 0.6 See_Comment [Aut omated message] The = Monocytes #) system which generated this result tra nsmitted reference range : <=0.8. The reference r fermín was not used to int erpret this result as normal/abnormal . [place] [address]-10-28 11:20:00 Test Item Value Reference Range Interpretation Comments Eosinophils # (test code 0.2 See_Comment [A utomated message] The = Eosinophils #) system whic h generated this result tra nsmitted reference range : <=0.5. The reference r fermín was not used to int erpret this result as normal/abnormal . [place] [address]-10-28 11:20:00 Test Item Value Reference Range Interpretation Comments Basophils # (test code 0.1 See_Comment [Aut omated message] The = Basophils #) system which generated this result tra nsmitted reference range : <=0.2. The reference r fermín was not used to int erpret this result as normal/abnormal . [facility] CenterSiremjcOUNHRURFKB4330-16-71 11:20:00 Test Item Value Reference Range Interpretation Comments WBC X 10x3 (test code = WBC X 10x3) 5.0 3.7-10.4 [facility] CenterExthkvtRGNLJJAFJE5481-38-02 11:20:00 Test Item Value Reference Range Interpretation Comments RBC X 10x6 (test code = RBC X 10x6) 3.89 4.20-5.40 [facility] CenterRaecnaoGWJVGGUOSK9051-37-51 11:20:00 Test Item Value Reference Range Interpretation Comments Hgb (test code = Hgb) 12.1 12.0-16.0 [place] 851592-10-28 11:20:00 Test Item Value Reference Range Interpretation Comments Hct (test code = Hct) 35.8 36.0-48.0 [place] 851592-10-28 11:20:00 Test Item Value Reference Range Interpretation Comments MCV (test code = MCV) 92.0 80.0-98.0 [place] 851592-10-28 11:20:00 Test Item Value Reference Range Interpretation Comments MCH (test code = MCH) 31.0 pg 27.0-31.0 [facility] CenterQwcuydaTEARTQWJKD6036-33-05 11:20:00 Test Item Value Reference Range Interpretation Comments MCHC (test code = MCHC) 33.7 32.0-36.0 [facility] CenterHymxzntODRJOOTJPV8130-61-58 11:20:00 Test Item Value Reference Range Interpretation Comments RDW (test code = RDW) 13.4 11.5-14.5 [facility] CenterNpjnmvfLRTCTOQIGH3892-70-79 11:20:00 Test Item Value Reference Range Interpretation Comments Platelet (test code = Platelet) 139 133-450 [facility] CenterMyjqvkkTRRZWSSDZR6499-01-47 11:20:00 Test Item Value Reference Range Interpretation Comments MPV (test code = MPV) 9.8 7.4-10.4 [facility] CenterJcuulkuXTLQFJUBI7338-84-28 21:37:00 Test Item Value Reference Range Interpretation Comments TSH (test code = TSH) 4.720 0.360-3.740 [facility] CenterIhoifasRTJEBNXWI2096-90-83 21:37:00 Test Item Value Reference Range Interpretation Comments T4 Free (test code = T4 Free) 0.99 0.76-1.46 [place] [address]-10-11 21:37:00 Test Item Value Reference Range Interpretation Comments TSH (test code = TSH) 4.720 0.360-3.740 [place] 407322-10-11 21:37:00 Test Item Value Reference Range Interpretation Comments T4 Free (test code = T4 Free) 0.99 0.76-1.46 [place] 407322-10-11 21:37:00 Test Item Value Reference Range Interpretation Comments TSH (test code = TSH) 4.720 0.360-3.740 [place] [address]-10-11 21:37:00 Test Item Value Reference Range Interpretation Comments T4 Free (test code = T4 Free) 0.99 0.76-1.46 [facility]2022-10-10 10:13:00 Test Item Value Reference Range Interpretation Comments Glucose Lvl (test code = Glucose Lvl) 90 70-99 [facility]2022-10-10 10:13:00 Test Item Value Reference Range Interpretation Comments BUN (test code = BUN) 11 -22 [facility]2022-10-10 10:13:00 Test Item Value Reference Range Interpretation Comments Creatinine Lvl (test code = Creatinine 0.84 0.50-1.40 Lvl) [facility]2022-10-10 10:13:00 Test Item Value Reference Range Interpretation Comments Sodium Lvl (test code = Sodium Lvl) 140 135-145 [facility]2022-10-10 10:13:00 Test Item Value Reference Range Interpretation Comments Potassium Lvl (test code = Potassium 4.2 3.5-5.1 Lvl) [facility]2022-10-10 10:13:00 Test Item Value Reference Range Interpretation Comments Chloride Lvl (test code = Chloride Lvl) 108 95-109 [facility]2022-10-10 10:13:00 Test Item Value Reference Range Interpretation Comments CO2 (test code = CO2) 27 24-32 [place] 371732-10-10 10:13:00 Test Item Value Reference Range Interpretation Comments Calcium Lvl (test code = Calcium Lvl) 8.8 8.5-10.5 [facility]2022-10-10 10:13:00 Test Item Value Reference Range Interpretation Comments AGAP (test code = AGAP) 9.2 10.0-20.0 [facility]2022-10-10 10:13:00 Test Item Value Reference Range Interpretation Comments eGFR (test code = eGFR) 70 [facility] CenterKwbncouOZOQISERJ3853-94-42 10:13:00 Test Item Value Reference Range Interpretation Comments Trig (test code = Trig) 115 [facility] CenterVjofmjrSNAZQAVJF7225-94-97 10:13:00 Test Item Value Reference Range Interpretation Comments Chol (test code = Chol) 191 [facility] CenterVwtaytwKAOOPVDCX4065-96-31 10:13:00 Test Item Value Reference Range Interpretation Comments HDL (test code = HDL) 55 [facility] CenterSjwqtfdXELTUUFCV9744-33-63 10:13:00 Test Item Value Reference Range Interpretation Comments CHD Risk (test code = CHD Risk) 3.47 1 3.90-5.80 [facility] CenterRaipmsqKHHDMBACD3035-31-08 10:13:00 Test Item Value Reference Range Interpretation Comments LDL (Calculated) (test code = LDL 113 (Calculated)) [facility] CenterIscvtsbYNAOTOEPE8376-33-75 10:13:00 Test Item Value Reference Range Interpretation Comments VLDL (test code = VLDL) 23 1 [facility] CenterIkrhvskRCBGORCQO4279-09-94 10:13:00 Test Item Value Reference Range Interpretation Comments Hgb A1C (test code = Hgb A1C) 5.9 [facility] CenterYbeacauYVTBZLECK6238-01-64 10:13:00 Test Item Value Reference Range Interpretation Comments Glucose Lvl (test code = Glucose Lvl) 90 70-99 [facility] CenterGnfkgkiUJZODLDSN2798-86-50 10:13:00 Test Item Value Reference Range Interpretation Comments BUN (test code = BUN) 11 7-22 [facility] CenterOwfmccwEZXXPSQDE0058-90-12 10:13:00 Test Item Value Reference Range Interpretation Comments Creatinine Lvl (test code = Creatinine 0.84 0.50-1.40 Lvl) [facility] CenterJpydclzTBJFCLNJK6459-50-03 10:13:00 Test Item Value Reference Range Interpretation Comments Sodium Lvl (test code = Sodium Lvl) 140 135-145 [facility] CenterUchufxvRFSNGXKWD1886-78-75 10:13:00 Test Item Value Reference Range Interpretation Comments Potassium Lvl (test code = Potassium 4.2 3.5-5.1 Lvl) [facility] CenterWiqgwgoSFJRVMFHY4927-66-63 10:13:00 Test Item Value Reference Range Interpretation Comments Chloride Lvl (test code = Chloride Lvl) 108 95-109 [facility] CenterCdrdpqzLKWCIBQYY7569-07-51 10:13:00 Test Item Value Reference Range Interpretation Comments CO2 (test code = CO2) 27 24-32 [facility] CenterYvfhypaDHQLVZYFY1416-40-64 10:13:00 Test Item Value Reference Range Interpretation Comments Calcium Lvl (test code = Calcium Lvl) 8.8 8.5-10.5 [facility] CenterBgtnvxsRJZKRZGFO5331-63-80 10:13:00 Test Item Value Reference Range Interpretation Comments AGAP (test code = AGAP) 9.2 10.0-20.0 [facility] CenterEpewigfXQXYMRIDH8730-07-78 10:13:00 Test Item Value Reference Range Interpretation Comments eGFR (test code = eGFR) 70 [facility] CenterUyzopxqXUNFNESDOR4469-85-48 10:13:00 Test Item Value Reference Range Interpretation Comments Segs (test code = Segs) 70.2 45.0-75.0 [facility] CenterVaihjxzOGTEJLOWJE7038-69-54 10:13:00 Test Item Value Reference Range Interpretation Comments Lymphocytes (test code = Lymphocytes) 17.1 20.0-40.0 [facility] CenterLtxpvtbAXJKTFOCKA7669-52-54 10:13:00 Test Item Value Reference Range Interpretation Comments Monocytes (test code = Monocytes) 9.6 2.0-12.0 [facility] CenterKiygufwOEJLDUBDXH2204-31-29 10:13:00 Test Item Value Reference Range Interpretation Comments Eosinophils (test code = 2.1 See_Comment [A utomated message] The Eosinophils) system which ge nerated this result tra nsmitted reference range : <=4.0. The reference r fermín was not used to int erpret this result as normal/abnormal . [facility] CenterKpjdwgnIECPXHHDRL4626-97-33 10:13:00 Test Item Value Reference Range Interpretation Comments Basophils (test code = 1.0 See_Comment [Aut omated message] The Basophils) system which ge nerated this result tra nsmitted reference range : <=1.0. The reference r fermín was not used to int erpret this result as normal/abnormal . [facility] CenterWjgwzejWCBELRLGUE2782-38-76 10:13:00 Test Item Value Reference Range Interpretation Comments Neutrophils # (test code = Neutrophils 3.4 1.5-8.1 #) [facility] CenterEupwppvWEGWUWQUVC9128-57-80 10:13:00 Test Item Value Reference Range Interpretation Comments Lymphocytes # (test code = Lymphocytes 0.8 1.0-5.5 #) [facility] CenterDmgzfgdFPPMAMDPOO7917-45-76 10:13:00 Test Item Value Reference Range Interpretation Comments Monocytes # (test code 0.5 See_Comment [Aut omated message] The = Monocytes #) system which generated this result tra nsmitted reference range : <=0.8. The reference r fermín was not used to int erpret this result as normal/abnormal . [facility] CenterFhvwwvvVTWRCBAAPA9239-42-83 10:13:00 Test Item Value Reference Range Interpretation Comments Eosinophils # (test code 0.1 See_Comment [A utomated message] The = Eosinophils #) system whic h generated this result tra nsmitted reference range : <=0.5. The reference r fermín was not used to int erpret this result as normal/abnormal . [facility] CenterEdfxnzbODBVHVNLYQ3444-38-41 10:13:00 Test Item Value Reference Range Interpretation Comments WBC (test code = WBC) 4.8 3.7-10.4 [facility] CenterTnxygtuMOZLKIHQVJ5319-24-53 10:13:00 Test Item Value Reference Range Interpretation Comments RBC (test code = RBC) 3.97 4.20-5.40 [place] 851592-10-10 10:13:00 Test Item Value Reference Range Interpretation Comments Hgb (test code = Hgb) 12.2 12.0-16.0 [place] [address]-10-10 10:13:00 Test Item Value Reference Range Interpretation Comments Hct (test code = Hct) 36.9 36.0-48.0 [place] 851592-10-10 10:13:00 Test Item Value Reference Range Interpretation Comments MCV (test code = MCV) 92.8 80.0-98.0 [place] [address]-10-10 10:13:00 Test Item Value Reference Range Interpretation Comments MCH (test code = MCH) 30.7 pg 27.0-31.0 [place] [address]-10-10 10:13:00 Test Item Value Reference Range Interpretation Comments MCHC (test code = MCHC) 33.1 32.0-36.0 [facility] CenterQkdihbeYCDORZVGYA3138-24-84 10:13:00 Test Item Value Reference Range Interpretation Comments RDW (test code = RDW) 13.3 11.5-14.5 [facility] CenterYfiwbtkKWRVSHYUBO5027-57-92 10:13:00 Test Item Value Reference Range Interpretation Comments Platelet (test code = Platelet) 125 133-450 [facility] CenterTkqxetcVMAVHKTYDN8215-86-86 10:13:00 Test Item Value Reference Range Interpretation Comments MPV (test code = MPV) 8.9 7.4-10.4 [facility] CenterDmmzrwuFUYDGWUZTX4329-77-95 10:13:00 Test Item Value Reference Range Interpretation Comments Segs (test code = Segs) 70.2 45.0-75.0 [facility] CenterHhmhjhkUWQWTWTMIP3807-62-55 10:13:00 Test Item Value Reference Range Interpretation Comments Lymphocytes (test code = Lymphocytes) 17.1 20.0-40.0 [facility] CenterDdtbrigKNWSXQIPMJ2566-10-98 10:13:00 Test Item Value Reference Range Interpretation Comments Monocytes (test code = Monocytes) 9.6 2.0-12.0 [facility] CenterFqsuzyuAYKIVABMGC5037-95-55 10:13:00 Test Item Value Reference Range Interpretation Comments Eosinophils (test code = 2.1 See_Comment [A utomated message] The Eosinophils) system which ge nerated this result tra nsmitted reference range : <=4.0. The reference r fermín was not used to int erpret this result as normal/abnormal . [facility] CenterAjhcnzqHUDAVHCXGU7168-13-04 10:13:00 Test Item Value Reference Range Interpretation Comments Basophils (test code = 1.0 See_Comment [Aut omated message] The Basophils) system which ge nerated this result tra nsmitted reference range : <=1.0. The reference r fermín was not used to int erpret this result as normal/abnormal . [facility] CenterRtuwakmXQJUHYINCI0946-42-85 10:13:00 Test Item Value Reference Range Interpretation Comments Neutrophils # (test code = Neutrophils 3.4 1.5-8.1 #) [facility] CenterDugpwmeUDTPPCIXCW8912-46-72 10:13:00 Test Item Value Reference Range Interpretation Comments Lymphocytes # (test code = Lymphocytes 0.8 1.0-5.5 #) [place] 851592-10-10 10:13:00 Test Item Value Reference Range Interpretation Comments Monocytes # (test code 0.5 See_Comment [Aut omated message] The = Monocytes #) system which generated this result tra nsmitted reference range : <=0.8. The reference r fermín was not used to int erpret this result as normal/abnormal . [facility] CenterVqaqvrtXEKEASFPTM6607-10-03 10:13:00 Test Item Value Reference Range Interpretation Comments Eosinophils # (test code 0.1 See_Comment [A utomated message] The = Eosinophils #) system whic h generated this result tra nsmitted reference range : <=0.5. The reference r fermín was not used to int erpret this result as normal/abnormal . [facility] CenterGacossoBKQHGRSPPR2137-21-88 10:13:00 Test Item Value Reference Range Interpretation Comments WBC (test code = WBC) 4.8 3.7-10.4 [facility] CenterKgugjsyORRTAITYTX2918-09-68 10:13:00 Test Item Value Reference Range Interpretation Comments RBC (test code = RBC) 3.97 4.20-5.40 [facility] CenterSjugplnXDYAFWSMIZ4832-08-14 10:13:00 Test Item Value Reference Range Interpretation Comments Hgb (test code = Hgb) 12.2 12.0-16.0 [facility] CenterCvcjpeyLQJHCMKTFK7350-69-86 10:13:00 Test Item Value Reference Range Interpretation Comments Hct (test code = Hct) 36.9 36.0-48.0 [facility] CenterLcxfzhfMMMQNRHLRL6561-81-85 10:13:00 Test Item Value Reference Range Interpretation Comments MCV (test code = MCV) 92.8 80.0-98.0 [facility] CenterXejibdnNEEHCBCMRQ1579-57-50 10:13:00 Test Item Value Reference Range Interpretation Comments MCH (test code = MCH) 30.7 pg 27.0-31.0 [place] 851592-10-10 10:13:00 Test Item Value Reference Range Interpretation Comments MCHC (test code = MCHC) 33.1 32.0-36.0 [place] 851592-10-10 10:13:00 Test Item Value Reference Range Interpretation Comments RDW (test code = RDW) 13.3 11.5-14.5 [facility] CenterHalndweGKNDNFMFEM3344-34-71 10:13:00 Test Item Value Reference Range Interpretation Comments Platelet (test code = Platelet) 125 133-450 [facility]lkfrrcMPQVVAHCAO3983-56-18 10:13:00 Test Item Value Reference Range Interpretation Comments MPV (test code = MPV) 8.9 7.4-10.4 [facility]YfpwznpKOIIVN2766-53-46 10:13:00 Test Item Value Reference Range Interpretation Comments Trig (test code = Trig) 115 [facility] TexasBggmquuZIJJJU8406-74-18 10:13:00 Test Item Value Reference Range Interpretation Comments Chol (test code = Chol) 191 [facility] TexasDrwkamsJAUOIL9577-08-93 10:13:00 Test Item Value Reference Range Interpretation Comments HDL (test code = HDL) 55 [facility]YgeapwqIJPNQQ1152-83-07 10:13:00 Test Item Value Reference Range Interpretation Comments CHD Risk (test code = CHD Risk) 3.47 1 3.90-5.80 [facility]UhjnqdrNJNEGU3196-84-91 10:13:00 Test Item Value Reference Range Interpretation Comments LDL (Calculated) (test code = LDL 113 (Calculated)) [facility] TexasLmtcsyaBHRYGY7675-54-97 10:13:00 Test Item Value Reference Range Interpretation Comments VLDL (test code = VLDL) 23 1 [facility] RDHWCDYBV8673-30-77 10:13:00 Test Item Value Reference Range Interpretation Comments Hgb A1C (test code = Hgb A1C) 5.9 [facility]2022-10-10 10:13:00 Test Item Value Reference Range Interpretation Comments Glucose Lvl (test code = Glucose Lvl) 90 70-99 [facility]2022-10-10 10:13:00 Test Item Value Reference Range Interpretation Comments BUN (test code = BUN) 11 7-22 [facility]2022-10-10 10:13:00 Test Item Value Reference Range Interpretation Comments Creatinine Lvl (test code = Creatinine 0.84 0.50-1.40 Lvl) [facility]2022-10-10 10:13:00 Test Item Value Reference Range Interpretation Comments Sodium Lvl (test code = Sodium Lvl) 140 135-145 [facility]2022-10-10 10:13:00 Test Item Value Reference Range Interpretation Comments Potassium Lvl (test code = Potassium 4.2 3.5-5.1 Lvl) [place] 371732-10-10 10:13:00 Test Item Value Reference Range Interpretation Comments Chloride Lvl (test code = Chloride Lvl) 108 95-109 [place] 371732-10-10 10:13:00 Test Item Value Reference Range Interpretation Comments CO2 (test code = CO2) 27 24-32 [place] 371732-10-10 10:13:00 Test Item Value Reference Range Interpretation Comments Calcium Lvl (test code = Calcium Lvl) 8.8 8.5-10.5 [facility]2022-10-10 10:13:00 Test Item Value Reference Range Interpretation Comments AGAP (test code = AGAP) 9.2 10.0-20.0 [place] 371732-10-10 10:13:00 Test Item Value Reference Range Interpretation Comments eGFR (test code = eGFR) 70 [facility] CenterIiossmrMQBMKHVYE9870-26-12 10:13:00 Test Item Value Reference Range Interpretation Comments Trig (test code = Trig) 115 [place] 407322-10-10 10:13:00 Test Item Value Reference Range Interpretation Comments Chol (test code = Chol) 191 [facility] CenterMnstmgoFZJDQHZQW9946-00-90 10:13:00 Test Item Value Reference Range Interpretation Comments HDL (test code = HDL) 55 [facility] CenterNewvshiFNQTERCBL4280-90-64 10:13:00 Test Item Value Reference Range Interpretation Comments CHD Risk (test code = CHD Risk) 3.47 1 3.90-5.80 [place] 407322-10-10 10:13:00 Test Item Value Reference Range Interpretation Comments LDL (Calculated) (test code = LDL 113 (Calculated)) [place] 407322-10-10 10:13:00 Test Item Value Reference Range Interpretation Comments VLDL (test code = VLDL) 23 1 [place] 407322-10-10 10:13:00 Test Item Value Reference Range Interpretation Comments Hgb A1C (test code = Hgb A1C) 5.9 [place] 407322-10-10 10:13:00 Test Item Value Reference Range Interpretation Comments Glucose Lvl (test code = Glucose Lvl) 90 70-99 [place] 407322-10-10 10:13:00 Test Item Value Reference Range Interpretation Comments BUN (test code = BUN) 11 7-22 [facility] CenterErfcxcgPIUOHMKME0608-22-78 10:13:00 Test Item Value Reference Range Interpretation Comments Creatinine Lvl (test code = Creatinine 0.84 0.50-1.40 Lvl) [facility] CenterXgajgmuFZHXOVOMY4930-45-71 10:13:00 Test Item Value Reference Range Interpretation Comments Sodium Lvl (test code = Sodium Lvl) 140 135-145 [facility] CenterSynnliiSNPLPPQIL6153-21-12 10:13:00 Test Item Value Reference Range Interpretation Comments Potassium Lvl (test code = Potassium 4.2 3.5-5.1 Lvl) [facility] CenterQpoicvfAGCSVLGNU8705-79-72 10:13:00 Test Item Value Reference Range Interpretation Comments Chloride Lvl (test code = Chloride Lvl) 108 95-109 [facility] CenterNcolriwEXOCKDFAI9213-35-30 10:13:00 Test Item Value Reference Range Interpretation Comments CO2 (test code = CO2) 27 24-32 [facility] CenterPaovtahZLIXEHHTI5174-52-39 10:13:00 Test Item Value Reference Range Interpretation Comments Calcium Lvl (test code = Calcium Lvl) 8.8 8.5-10.5 [facility] CenterJgdishcMSCPIHNEL9332-39-48 10:13:00 Test Item Value Reference Range Interpretation Comments AGAP (test code = AGAP) 9.2 10.0-20.0 [facility] CenterGqpxwnhVGYUHJTWG0606-36-34 10:13:00 Test Item Value Reference Range Interpretation Comments eGFR (test code = eGFR) 70 [facility] CenterQjlcdmeUZOWHUSZBF9427-53-64 10:13:00 Test Item Value Reference Range Interpretation Comments Segs (test code = Segs) 70.2 45.0-75.0 [facility] CenterIwihvvyRZJOLWMYXP0908-22-82 10:13:00 Test Item Value Reference Range Interpretation Comments Lymphocytes (test code = Lymphocytes) 17.1 20.0-40.0 [facility] CenterEosmsnsJTXQICOYSZ7833-91-04 10:13:00 Test Item Value Reference Range Interpretation Comments Monocytes (test code = Monocytes) 9.6 2.0-12.0 [place] 851592-10-10 10:13:00 Test Item Value Reference Range Interpretation Comments Eosinophils (test code = 2.1 See_Comment [A utomated message] The Eosinophils) system which ge nerated this result tra nsmitted reference range : <=4.0. The reference r fermín was not used to int erpret this result as normal/abnormal . [facility] CenterSypyukmLHMUPEGGMH5004-32-74 10:13:00 Test Item Value Reference Range Interpretation Comments Basophils (test code = 1.0 See_Comment [Aut omated message] The Basophils) system which ge nerated this result tra nsmitted reference range : <=1.0. The reference r fermín was not used to int erpret this result as normal/abnormal . [facility] CenterQawdkicXOGGGDYMWQ8482-93-64 10:13:00 Test Item Value Reference Range Interpretation Comments Neutrophils # (test code = Neutrophils 3.4 1.5-8.1 #) [facility] CenterTfwgcoaNVMDGGQXRZ3005-14-89 10:13:00 Test Item Value Reference Range Interpretation Comments Lymphocytes # (test code = Lymphocytes 0.8 1.0-5.5 #) [facility] CenterRpwlptaEXEOXFKENS6431-18-19 10:13:00 Test Item Value Reference Range Interpretation Comments Monocytes # (test code 0.5 See_Comment [Aut omated message] The = Monocytes #) system which generated this result tra nsmitted reference range : <=0.8. The reference r fermín was not used to int erpret this result as normal/abnormal . [facility] CenterWeccsbhAOSHGRUXZQ3001-15-40 10:13:00 Test Item Value Reference Range Interpretation Comments Eosinophils # (test code 0.1 See_Comment [A utomated message] The = Eosinophils #) system whic h generated this result tra nsmitted reference range : <=0.5. The reference r fermín was not used to int erpret this result as normal/abnormal . [facility] CenterCvjcfkrMOIJAJSEOX6012-40-56 10:13:00 Test Item Value Reference Range Interpretation Comments WBC (test code = WBC) 4.8 3.7-10.4 [facility] CenterLvlfqseUUVENXMDJU2421-80-32 10:13:00 Test Item Value Reference Range Interpretation Comments RBC (test code = RBC) 3.97 4.20-5.40 [facility] CenterJxkajcyFINWGDXMRC3610-67-29 10:13:00 Test Item Value Reference Range Interpretation Comments Hgb (test code = Hgb) 12.2 12.0-16.0 [facility] CenterRcgavavKZWEVQRULT8088-91-55 10:13:00 Test Item Value Reference Range Interpretation Comments Hct (test code = Hct) 36.9 36.0-48.0 [place] 851592-10-10 10:13:00 Test Item Value Reference Range Interpretation Comments MCV (test code = MCV) 92.8 80.0-98.0 [place] 851592-10-10 10:13:00 Test Item Value Reference Range Interpretation Comments MCH (test code = MCH) 30.7 pg 27.0-31.0 [place] 851592-10-10 10:13:00 Test Item Value Reference Range Interpretation Comments MCHC (test code = MCHC) 33.1 32.0-36.0 [place] 851592-10-10 10:13:00 Test Item Value Reference Range Interpretation Comments RDW (test code = RDW) 13.3 11.5-14.5 [place] 851592-10-10 10:13:00 Test Item Value Reference Range Interpretation Comments Platelet (test code = Platelet) 125 133-450 [facility] CenterCatuvbtSCZXEJBCKY3797-43-60 10:13:00 Test Item Value Reference Range Interpretation Comments MPV (test code = MPV) 8.9 7.4-10.4 [facility] CenterPnlfefgLEOEBOCDKB1953-49-57 10:13:00 Test Item Value Reference Range Interpretation Comments Segs (test code = Segs) 70.2 45.0-75.0 [facility] CenterQunwdwrDPIFUIYOPG9183-43-95 10:13:00 Test Item Value Reference Range Interpretation Comments Lymphocytes (test code = Lymphocytes) 17.1 20.0-40.0 [place] 851592-10-10 10:13:00 Test Item Value Reference Range Interpretation Comments Monocytes (test code = Monocytes) 9.6 2.0-12.0 [place] [address]-10-10 10:13:00 Test Item Value Reference Range Interpretation Comments Eosinophils (test code = 2.1 See_Comment [A utomated message] The Eosinophils) system which ge nerated this result tra nsmitted reference range : <=4.0. The reference r fermín was not used to int erpret this result as normal/abnormal . [place] 851592-10-10 10:13:00 Test Item Value Reference Range Interpretation Comments Basophils (test code = 1.0 See_Comment [Aut omated message] The Basophils) system which ge nerated this result tra nsmitted reference range : <=1.0. The reference r fermín was not used to int erpret this result as normal/abnormal . [place] 851592-10-10 10:13:00 Test Item Value Reference Range Interpretation Comments Neutrophils # (test code = Neutrophils 3.4 1.5-8.1 #) [facility] CenterKczgtmaAWOYKEDNNK9133-46-49 10:13:00 Test Item Value Reference Range Interpretation Comments Lymphocytes # (test code = Lymphocytes 0.8 1.0-5.5 #) [facility] CenterXzvuwriRCUYAOWDBP3481-38-10 10:13:00 Test Item Value Reference Range Interpretation Comments Monocytes # (test code 0.5 See_Comment [Aut omated message] The = Monocytes #) system which generated this result tra nsmitted reference range : <=0.8. The reference r fermín was not used to int erpret this result as normal/abnormal . [facility] CenterGxudkdiBAMTZNNKQH3223-31-84 10:13:00 Test Item Value Reference Range Interpretation Comments Eosinophils # (test code 0.1 See_Comment [A utomated message] The = Eosinophils #) system whic h generated this result tra nsmitted reference range : <=0.5. The reference r fermín was not used to int erpret this result as normal/abnormal . [facility] CenterXpgnmhkMSHSSDQIJQ6309-95-13 10:13:00 Test Item Value Reference Range Interpretation Comments WBC (test code = WBC) 4.8 3.7-10.4 [facility] CenterXipzhosAGVDZGDUVW2882-61-04 10:13:00 Test Item Value Reference Range Interpretation Comments RBC (test code = RBC) 3.97 4.20-5.40 [place] 851592-10-10 10:13:00 Test Item Value Reference Range Interpretation Comments Hgb (test code = Hgb) 12.2 12.0-16.0 [facility] CenterQzlcgiiNQYLOIBJQI0361-71-73 10:13:00 Test Item Value Reference Range Interpretation Comments Hct (test code = Hct) 36.9 36.0-48.0 [place] 851592-10-10 10:13:00 Test Item Value Reference Range Interpretation Comments MCV (test code = MCV) 92.8 80.0-98.0 [place] 851592-10-10 10:13:00 Test Item Value Reference Range Interpretation Comments MCH (test code = MCH) 30.7 pg 27.0-31.0 [facility] CenterUgmsfoyFFVDTGNUQL0817-68-59 10:13:00 Test Item Value Reference Range Interpretation Comments MCHC (test code = MCHC) 33.1 32.0-36.0 [facility]WaipgouABKXLKKTMC7287-61-98 10:13:00 Test Item Value Reference Range Interpretation Comments RDW (test code = RDW) 13.3 11.5-14.5 [facility] CenterRqzrghhHLYXVVUPNL2379-22-00 10:13:00 Test Item Value Reference Range Interpretation Comments Platelet (test code = Platelet) 125 133-450 [facility] CenterEtampzaZZGCZGZSUH2413-93-71 10:13:00 Test Item Value Reference Range Interpretation Comments MPV (test code = MPV) 8.9 7.4-10.4 [facility] CenterCktsfpoIBWHVT9416-43-49 10:13:00 Test Item Value Reference Range Interpretation Comments Trig (test code = Trig) 115 [facility]JxmxrmmJUUELU8154-51-88 10:13:00 Test Item Value Reference Range Interpretation Comments Chol (test code = Chol) 191 [facility] TexasOoivxsrKCYXYQ6142-36-76 10:13:00 Test Item Value Reference Range Interpretation Comments HDL (test code = HDL) 55 [facility] TexasDdehecyGNXTFW3618-37-24 10:13:00 Test Item Value Reference Range Interpretation Comments CHD Risk (test code = CHD Risk) 3.47 1 3.90-5.80 [facility] TexasHxuwzwoADQFJM0553-06-82 10:13:00 Test Item Value Reference Range Interpretation Comments LDL (Calculated) (test code = LDL 113 (Calculated)) [facility] TexasJuxptbtAPFBKK0995-61-79 10:13:00 Test Item Value Reference Range Interpretation Comments VLDL (test code = VLDL) 23 [facility] AXOFKLSXA6034-17-38 10:13:00 Test Item Value Reference Range Interpretation Comments Hgb A1C (test code = Hgb A1C) 5.9 [facility] TexasGingr QZVIF2249-15-87 10:13:00 Test Item Value Reference Range Interpretation Comments Glucose Lvl (test code = Glucose Lvl) 90 70-99 [facility]r FUQDE2532-14-48 10:13:00 Test Item Value Reference Range Interpretation Comments BUN (test code = BUN) 11 7-22 [facility]2022-10-10 10:13:00 Test Item Value Reference Range Interpretation Comments Creatinine Lvl (test code = Creatinine 0.84 0.50-1.40 Lvl) [facility]2022-10-10 10:13:00 Test Item Value Reference Range Interpretation Comments Sodium Lvl (test code = Sodium Lvl) 140 135-145 [facility]2022-10-10 10:13:00 Test Item Value Reference Range Interpretation Comments Potassium Lvl (test code = Potassium 4.2 3.5-5.1 Lvl) [facility]2022-10-10 10:13:00 Test Item Value Reference Range Interpretation Comments Chloride Lvl (test code = Chloride Lvl) 108 95-109 [facility]2022-10-10 10:13:00 Test Item Value Reference Range Interpretation Comments CO2 (test code = CO2) 27 24-32 [place] 371732-10-10 10:13:00 Test Item Value Reference Range Interpretation Comments Calcium Lvl (test code = Calcium Lvl) 8.8 8.5-10.5 [facility]2022-10-10 10:13:00 Test Item Value Reference Range Interpretation Comments AGAP (test code = AGAP) 9.2 10.0-20.0 [facility]2022-10-10 10:13:00 Test Item Value Reference Range Interpretation Comments eGFR (test code = eGFR) 70 [facility] CenterIrfponwEMXXXVFUW5548-13-53 10:13:00 Test Item Value Reference Range Interpretation Comments Trig (test code = Trig) 115 [facility] CenterIedxmewDEBEGJRIO1858-97-60 10:13:00 Test Item Value Reference Range Interpretation Comments Chol (test code = Chol) 191 [facility] CenterFrvdpjtHJBESBYDK1381-24-45 10:13:00 Test Item Value Reference Range Interpretation Comments HDL (test code = HDL) 55 [facility] CenterDietykaPPHFRPSBF3238-17-21 10:13:00 Test Item Value Reference Range Interpretation Comments CHD Risk (test code = CHD Risk) 3.47 1 3.90-5.80 [facility] CenterLlduxdeAKMAGPNIZ5236-82-77 10:13:00 Test Item Value Reference Range Interpretation Comments LDL (Calculated) (test code = LDL 113 (Calculated)) [place] 407322-10-10 10:13:00 Test Item Value Reference Range Interpretation Comments VLDL (test code = VLDL) 23 1 [facility] CenterIxsbbeqWEVBVPYIS5115-20-60 10:13:00 Test Item Value Reference Range Interpretation Comments Hgb A1C (test code = Hgb A1C) 5.9 [facility] CenterHuuljgyWFYEESCSW9764-77-13 10:13:00 Test Item Value Reference Range Interpretation Comments Glucose Lvl (test code = Glucose Lvl) 90 70-99 [facility] CenterRhhggooSFVQDFULZ9207-70-69 10:13:00 Test Item Value Reference Range Interpretation Comments BUN (test code = BUN) 11 7-22 [facility] CenterTdnobvhYEOOICSVT4062-52-69 10:13:00 Test Item Value Reference Range Interpretation Comments Creatinine Lvl (test code = Creatinine 0.84 0.50-1.40 Lvl) [facility] CenterZehbwlwQVGYTMGZI6516-47-28 10:13:00 Test Item Value Reference Range Interpretation Comments Sodium Lvl (test code = Sodium Lvl) 140 135-145 [facility] CenterKyxhbfkEITLUBKGB4341-27-35 10:13:00 Test Item Value Reference Range Interpretation Comments Potassium Lvl (test code = Potassium 4.2 3.5-5.1 Lvl) [facility] CenterBhfbbcoRTCISGTHE3948-33-55 10:13:00 Test Item Value Reference Range Interpretation Comments Chloride Lvl (test code = Chloride Lvl) 108 95-109 [facility] CenterCgnntcqHPLRYAZKX6985-24-19 10:13:00 Test Item Value Reference Range Interpretation Comments CO2 (test code = CO2) 27 24-32 [facility] CenterRgvpfbbLHSPMUCDP2032-21-05 10:13:00 Test Item Value Reference Range Interpretation Comments Calcium Lvl (test code = Calcium Lvl) 8.8 8.5-10.5 [facility] CenterShsooezHUMTHQQCU4275-01-65 10:13:00 Test Item Value Reference Range Interpretation Comments AGAP (test code = AGAP) 9.2 10.0-20.0 [facility] CenterVfmpoxqIUKBVJPYC9937-48-98 10:13:00 Test Item Value Reference Range Interpretation Comments eGFR (test code = eGFR) 70 [facility] CenterZpocrhtPDBBPVEEQE4847-58-93 10:13:00 Test Item Value Reference Range Interpretation Comments Segs (test code = Segs) 70.2 45.0-75.0 [place] 851592-10-10 10:13:00 Test Item Value Reference Range Interpretation Comments Lymphocytes (test code = Lymphocytes) 17.1 20.0-40.0 [place] 851592-10-10 10:13:00 Test Item Value Reference Range Interpretation Comments Monocytes (test code = Monocytes) 9.6 2.0-12.0 [facility] CenterIbmjcgbAJDFSTXDWT3690-28-32 10:13:00 Test Item Value Reference Range Interpretation Comments Eosinophils (test code = 2.1 See_Comment [A utomated message] The Eosinophils) system which ge nerated this result tra nsmitted reference range : <=4.0. The reference r fermín was not used to int erpret this result as normal/abnormal . [place] 851592-10-10 10:13:00 Test Item Value Reference Range Interpretation Comments Basophils (test code = 1.0 See_Comment [Aut omated message] The Basophils) system which ge nerated this result tra nsmitted reference range : <=1.0. The reference r fermín was not used to int erpret this result as normal/abnormal . [facility] CenterSgzupabWVTGVDITZZ7364-14-06 10:13:00 Test Item Value Reference Range Interpretation Comments Neutrophils # (test code = Neutrophils 3.4 1.5-8.1 #) [place] 851592-10-10 10:13:00 Test Item Value Reference Range Interpretation Comments Lymphocytes # (test code = Lymphocytes 0.8 1.0-5.5 #) [facility] CenterYiqllqqRGQTHRZKAB6485-63-09 10:13:00 Test Item Value Reference Range Interpretation Comments Monocytes # (test code 0.5 See_Comment [Aut omated message] The = Monocytes #) system which generated this result tra nsmitted reference range : <=0.8. The reference r fermín was not used to int erpret this result as normal/abnormal . [place] 851592-10-10 10:13:00 Test Item Value Reference Range Interpretation Comments Eosinophils # (test code 0.1 See_Comment [A utomated message] The = Eosinophils #) system whic h generated this result tra nsmitted reference range : <=0.5. The reference r fermín was not used to int erpret this result as normal/abnormal . [facility] CenterAtgyrtuFWZOJDMABY6066-84-45 10:13:00 Test Item Value Reference Range Interpretation Comments WBC (test code = WBC) 4.8 3.7-10.4 [facility] CenterVigsnwtZXGXTMRNST4320-90-58 10:13:00 Test Item Value Reference Range Interpretation Comments RBC (test code = RBC) 3.97 4.20-5.40 [facility] CenterPpnqnntZXWQTEEBCT2561-56-53 10:13:00 Test Item Value Reference Range Interpretation Comments Hgb (test code = Hgb) 12.2 12.0-16.0 [facility] CenterIlpcvodCIYWUDUBKR3271-52-04 10:13:00 Test Item Value Reference Range Interpretation Comments Hct (test code = Hct) 36.9 36.0-48.0 [facility] CenterJqvslxeAYLNQPMRNU3482-83-77 10:13:00 Test Item Value Reference Range Interpretation Comments MCV (test code = MCV) 92.8 80.0-98.0 [facility] CenterFfwfoxfVGBSDOSQVB8601-15-38 10:13:00 Test Item Value Reference Range Interpretation Comments MCH (test code = MCH) 30.7 pg 27.0-31.0 [facility] CenterAdufypuTVKLOKAQBX1097-97-86 10:13:00 Test Item Value Reference Range Interpretation Comments MCHC (test code = MCHC) 33.1 32.0-36.0 [facility] CenterSbhqcwyWYAWLPWWDX9952-83-44 10:13:00 Test Item Value Reference Range Interpretation Comments RDW (test code = RDW) 13.3 11.5-14.5 [facility] CenterGbfrygsYAJYVQTEFU6543-25-33 10:13:00 Test Item Value Reference Range Interpretation Comments Platelet (test code = Platelet) 125 133-450 [facility] CenterEutldkgWZJQDSIFXH3143-15-47 10:13:00 Test Item Value Reference Range Interpretation Comments MPV (test code = MPV) 8.9 7.4-10.4 [facility] CenterLbeanccBAOURXFGQX0514-81-10 10:13:00 Test Item Value Reference Range Interpretation Comments Segs (test code = Segs) 70.2 45.0-75.0 [facility] CenterFqzrpsvZHPCROBMPG3385-30-00 10:13:00 Test Item Value Reference Range Interpretation Comments Lymphocytes (test code = Lymphocytes) 17.1 20.0-40.0 [facility] CenterSljqmbsGWFPJCYMPN6453-08-35 10:13:00 Test Item Value Reference Range Interpretation Comments Monocytes (test code = Monocytes) 9.6 2.0-12.0 [place] 851592-10-10 10:13:00 Test Item Value Reference Range Interpretation Comments Eosinophils (test code = 2.1 See_Comment [A utomated message] The Eosinophils) system which ge nerated this result tra nsmitted reference range : <=4.0. The reference r fermín was not used to int erpret this result as normal/abnormal . [facility] CenterKowowjnMJUIAAGSSJ3780-19-90 10:13:00 Test Item Value Reference Range Interpretation Comments Basophils (test code = 1.0 See_Comment [Aut omated message] The Basophils) system which ge nerated this result tra nsmitted reference range : <=1.0. The reference r fermín was not used to int erpret this result as normal/abnormal . [facility] CenterDxrrkmuXRXUTOLYBZ0792-38-25 10:13:00 Test Item Value Reference Range Interpretation Comments Neutrophils # (test code = Neutrophils 3.4 1.5-8.1 #) [place] 851592-10-10 10:13:00 Test Item Value Reference Range Interpretation Comments Lymphocytes # (test code = Lymphocytes 0.8 1.0-5.5 #) [facility] CenterCzhpbstCGLCPLHTQY1209-53-35 10:13:00 Test Item Value Reference Range Interpretation Comments Monocytes # (test code 0.5 See_Comment [Aut omated message] The = Monocytes #) system which generated this result tra nsmitted reference range : <=0.8. The reference r fermín was not used to int erpret this result as normal/abnormal . [facility] CenterFpnzdfpGRYHSASVKH3146-50-03 10:13:00 Test Item Value Reference Range Interpretation Comments Eosinophils # (test code 0.1 See_Comment [A utomated message] The = Eosinophils #) system whic h generated this result tra nsmitted reference range : <=0.5. The reference r fermín was not used to int erpret this result as normal/abnormal . [place] 851592-10-10 10:13:00 Test Item Value Reference Range Interpretation Comments WBC (test code = WBC) 4.8 3.7-10.4 [place] 851592-10-10 10:13:00 Test Item Value Reference Range Interpretation Comments RBC (test code = RBC) 3.97 4.20-5.40 [facility] CenterOmjuyhmQKBLSQXDVA8452-20-97 10:13:00 Test Item Value Reference Range Interpretation Comments Hgb (test code = Hgb) 12.2 12.0-16.0 [facility] CenterBtgsndyLVFZISKLWJ8419-42-62 10:13:00 Test Item Value Reference Range Interpretation Comments Hct (test code = Hct) 36.9 36.0-48.0 [facility] CenterXixwhufXBWVFNRBQW7537-05-75 10:13:00 Test Item Value Reference Range Interpretation Comments MCV (test code = MCV) 92.8 80.0-98.0 [facility] CenterMpbkyqfROGHQERZJJ3195-36-45 10:13:00 Test Item Value Reference Range Interpretation Comments MCH (test code = MCH) 30.7 pg 27.0-31.0 [facility] CenterCjzrjrwGULDKQLPTQ5299-90-83 10:13:00 Test Item Value Reference Range Interpretation Comments MCHC (test code = MCHC) 33.1 32.0-36.0 [facility] CenterYubnofpWQLMPVBUKP2301-73-49 10:13:00 Test Item Value Reference Range Interpretation Comments RDW (test code = RDW) 13.3 11.5-14.5 [facility] CenterYaamqrfMEOTVZAFQV2516-98-15 10:13:00 Test Item Value Reference Range Interpretation Comments Platelet (test code = Platelet) 125 133-450 [facility] CenterRidhfxrUHLIMJTZXN4582-48-42 10:13:00 Test Item Value Reference Range Interpretation Comments MPV (test code = MPV) 8.9 7.4-10.4 [facility]BzqwtfwOHQHFD7824-41-70 10:13:00 Test Item Value Reference Range Interpretation Comments Trig (test code = Trig) 115 [facility] CenterLswqvvyMZPUHI6705-69-89 10:13:00 Test Item Value Reference Range Interpretation Comments Chol (test code = Chol) 191 [facility] CenterPdplqesKFLJGZ3223-49-31 10:13:00 Test Item Value Reference Range Interpretation Comments HDL (test code = HDL) 55 [facility] CenterAwbbutzSCJUQS5016-62-66 10:13:00 Test Item Value Reference Range Interpretation Comments CHD Risk (test code = CHD Risk) 3.47 1 3.90-5.80 [facility] CenterDyqqacvAUICKK6963-04-84 10:13:00 Test Item Value Reference Range Interpretation Comments LDL (Calculated) (test code = LDL 113 (Calculated)) [facility]WkosloeIPKVNE3346-57-23 10:13:00 Test Item Value Reference Range Interpretation Comments VLDL (test code = VLDL) 23 1 [facility] TJXEMMCRU0561-31-26 10:13:00 Test Item Value Reference Range Interpretation Comments Hgb A1C (test code = Hgb A1C) 5.9 [facility] TexasImucopnZAOXKF7620-08-51 22:21:21 Test Item Value Reference Range Interpretation Comments RADRPT (test code Patient Name: JUSTINE = MARTINA) TREMIEDOB: 1940; Age: 81 years y/o FemaleMR: [id number]: Brain wo contrast MRI 02/12/2022 14:17Ordering Physician: [...] MD via Perfect[employer] at 02/12/2022 17:32 [facility] 22:21:21 Test Item Value Reference Range Interpretation Comments MARTINA (test code Patient Name: JUSTINE MACK) TREMIEDOB: 1940; Age: 81 years y/o FemaleMR: [id number]: Brain wo contrast MRI 02/12/2022 14:17Ordering Physician: [...] MD via [employer] at 02/12/2022 17:32 [CRIT] [facility] HospitalOxizfxoQATRFQ5099-58-68 22:21:21 Test Item Value Reference Range Interpretation Comments MARTINA (test code Patient Name: JUSTINE MACK) TREMIEDOB: 1940; Age: 81 years y/o FemaleMR: [id number]: Brain wo contrast MRI 02/12/2022 14:17Ordering Physician: [...] MD via [employer] at 02/12/2022 17:32 [CRIT] [facility]phqtliOHQUHEDLWQ3655[facility] 20:45:00 Test Item Value Reference Range Interpretation Comments Coronavirus (COVID-19) Not Detected (02/12/22 DIMAS (test code = 3:45 PM) Coronavirus (COVID-19) DIMAS) [facility]RmxcdunAEIXJDKRAC9167-45-63 20:45:00 Test Item Value Reference Range Interpretation Comments Coronavirus (COVID-19) Not Detected (02/12/22 DIMAS (test code = 3:45 PM) Coronavirus (COVID-19) DIMAS) [facility] BrookAqlbuzgLZGLNRDVDF4671-63-79 20:45:00 Test Item Value Reference Range Interpretation Comments Coronavirus (COVID-19) Not Detected (02/12/22 DIMAS (test code = 3:45 PM) Coronavirus (COVID-19) DIMAS) [place] 653722-10-09 20:45:00 Test Item Value Reference Range Interpretation Comments Coronavirus (COVID-19) Not Detected (02/12/22 DIMAS (test code = 3:45 PM) Coronavirus (COVID-19) DIMAS) [place] [address]-10-09 20:45:00 Test Item Value Reference Range Interpretation Comments Coronavirus (COVID-19) Not Detected (02/12/22 DIMAS (test code = 3:45 PM) Coronavirus (COVID-19) DIMAS) [facility] BrookBgsxpgrXAKAIKNAEQ6916-10-17 20:45:00 Test Item Value Reference Range Interpretation Comments Coronavirus (COVID-19) Not Detected (02/12/22 DIMAS (test code = 3:45 PM) Coronavirus (COVID-19) DIMAS) [facility]2022-10-09 12:38:00 Test Item Value Reference Range Interpretation Comments Glucose Lvl (test code = Glucose Lvl) 100 70-99 [facility]2022-10-09 12:38:00 Test Item Value Reference Range Interpretation Comments BUN (test code = BUN) 14 7-22 [facility]2022-10-09 12:38:00 Test Item Value Reference Range Interpretation Comments Creatinine Lvl (test code = Creatinine 0.98 0.50-1.40 Lvl) [facility]2022-10-09 12:38:00 Test Item Value Reference Range Interpretation Comments Sodium Lvl (test code = Sodium Lvl) 139 135-145 [facility]2022-10-09 12:38:00 Test Item Value Reference Range Interpretation Comments Potassium Lvl (test code = Potassium 4.2 3.5-5.1 Lvl) [facility]2022-10-09 12:38:00 Test Item Value Reference Range Interpretation Comments Chloride Lvl (test code = Chloride Lvl) 108 95-109 [facility]2022-10-09 12:38:00 Test Item Value Reference Range Interpretation Comments CO2 (test code = CO2) 27 24-32 [facility]2022-10-09 12:38:00 Test Item Value Reference Range Interpretation Comments Calcium Lvl (test code = Calcium Lvl) 9.5 8.5-10.5 [place] 371732-10-09 12:38:00 Test Item Value Reference Range Interpretation Comments Total Protein (test code = Total 7.4 6.4-8.4 Protein) [place] 371732-10-09 12:38:00 Test Item Value Reference Range Interpretation Comments Albumin Lvl (test code = Albumin Lvl) 3.6 3.5-5.0 [facility] [id number] 12:38:00 Test Item Value Reference Range Interpretation Comments ALT (test code = ALT) 21 See_Comment [Auto mated message] The system which ge nerated this result transmit kalie reference range : <=65. The reference range was not used to interpr et this result as sylvester l/abnormal. [facility] [id number] 12:38:00 Test Item Value Reference Range Interpretation Comments AST (test code = AST) 24 See_Comment [Auto mated message] The system which ge nerated this result transmit kalie reference range : <=37. The reference range was not used to interpr et this result as sylvester l/abnormal. [facility] [id number] 12:38:00 Test Item Value Reference Range Interpretation Comments Alk Phos (test code = Alk Phos) 71 39-136 [facility] [id number] 12:38:00 Test Item Value Reference Range Interpretation Comments Bili Total (test code = Bili Total) 0.5 0.2-1.3 [facility] [id number] 12:38:00 Test Item Value Reference Range Interpretation Comments AGAP (test code = AGAP) 8.2 10.0-20.0 [facility] [id number] 12:38:00 Test Item Value Reference Range Interpretation Comments B/C Ratio (test code = B/C Ratio) 14 1 6-25 [facility] [id number] 12:38:00 Test Item Value Reference Range Interpretation Comments Globulin (test code = Globulin) 3.8 2.7-4.2 [facility] [id number] 12:38:00 Test Item Value Reference Range Interpretation Comments A/G Ratio (test code = A/G Ratio) 0.9 1 0.7-1.6 [facility]2022-10-09 12:38:00 Test Item Value Reference Range Interpretation Comments eGFR (test code = eGFR) 58 [facility] [id number] 12:38:00 Test Item Value Reference Range Interpretation Comments Lipase Lvl (test code = Lipase Lvl) 35 73-393 [facility] CenterXelzhbpNIAWQKRPBK9953-41-82 12:38:00 Test Item Value Reference Range Interpretation Comments WBC (test code = WBC) 6.1 3.7-10.4 [facility] CenterWzyekhhTFFUQKRJUE5953-43-77 12:38:00 Test Item Value Reference Range Interpretation Comments RBC (test code = RBC) 4.17 4.20-5.40 [place] 851592-10-09 12:38:00 Test Item Value Reference Range Interpretation Comments Hgb (test code = Hgb) 12.9 12.0-16.0 [place] 851592-10-09 12:38:00 Test Item Value Reference Range Interpretation Comments Hct (test code = Hct) 39.2 36.0-48.0 [facility] CenterLbfufrlMBWQGSWKCO6910-45-08 12:38:00 Test Item Value Reference Range Interpretation Comments MCV (test code = MCV) 94.0 80.0-98.0 [facility] CenterHpukckaSDLFJCDFQQ6197-39-29 12:38:00 Test Item Value Reference Range Interpretation Comments MCH (test code = MCH) 30.9 pg 27.0-31.0 [facility] CenterAglkhhfCIFCFJWDVZ6846-15-77 12:38:00 Test Item Value Reference Range Interpretation Comments MCHC (test code = MCHC) 32.9 32.0-36.0 [place] 851592-10-09 12:38:00 Test Item Value Reference Range Interpretation Comments RDW (test code = RDW) 13.3 11.5-14.5 [place] 851592-10-09 12:38:00 Test Item Value Reference Range Interpretation Comments Platelet (test code = Platelet) 150 133-450 [facility] CenterKvzsyzvDUQWSVNZJE4210-94-23 12:38:00 Test Item Value Reference Range Interpretation Comments MPV (test code = MPV) 8.7 7.4-10.4 [place] [address]-10-09 12:38:00 Test Item Value Reference Range Interpretation Comments Segs (test code = Segs) 73.9 45.0-75.0 [place] 851592-10-09 12:38:00 Test Item Value Reference Range Interpretation Comments Lymphocytes (test code = Lymphocytes) 13.8 20.0-40.0 [place] [address]-10-09 12:38:00 Test Item Value Reference Range Interpretation Comments Monocytes (test code = Monocytes) 8.6 2.0-12.0 [place] 851592-10-09 12:38:00 Test Item Value Reference Range Interpretation Comments Eosinophils (test code = 2.5 See_Comment [A utomated message] The Eosinophils) system which ge nerated this result tra nsmitted reference range : <=4.0. The reference r fermín was not used to int erpret this result as normal/abnormal . [place] [address]-10-09 12:38:00 Test Item Value Reference Range Interpretation Comments Basophils (test code = 1.2 See_Comment [Aut omated message] The Basophils) system which ge nerated this result tra nsmitted reference range : <=1.0. The reference r fermín was not used to int erpret this result as normal/abnormal . [place] 851592-10-09 12:38:00 Test Item Value Reference Range Interpretation Comments Neutrophils # (test code = Neutrophils 4.5 1.5-8.1 #) [place] 851592-10-09 12:38:00 Test Item Value Reference Range Interpretation Comments Lymphocytes # (test code = Lymphocytes 0.8 1.0-5.5 #) [place] [address]-10-09 12:38:00 Test Item Value Reference Range Interpretation Comments Monocytes # (test code 0.5 See_Comment [Aut omated message] The = Monocytes #) system which generated this result tra nsmitted reference range : <=0.8. The reference r fermín was not used to int erpret this result as normal/abnormal . [place] [address]-10-09 12:38:00 Test Item Value Reference Range Interpretation Comments Eosinophils # (test code 0.2 See_Comment [A utomated message] The = Eosinophils #) system whic h generated this result tra nsmitted reference range : <=0.5. The reference r fermín was not used to int erpret this result as normal/abnormal . [facility] CenterDwewoqgBFQROXHRLO4688-23-37 12:38:00 Test Item Value Reference Range Interpretation Comments Basophils # (test code 0.1 See_Comment [Aut omated message] The = Basophils #) system which generated this result tra nsmitted reference range : <=0.2. The reference r fermín was not used to int erpret this result as normal/abnormal . [place] 175982-10-09 12:38:00 Test Item Value Reference Range Interpretation Comments Ethanol Lvl (test code = Ethanol Lvl) no gt [place] 175982-10-09 12:38:00 Test Item Value Reference Range Interpretation Comments Etoh (%) (test code = Etoh (%)) no gt [facility]2022-10-09 12:38:00 Test Item Value Reference Range Interpretation Comments Glucose Lvl (test code = Glucose Lvl) 100 70-99 [place] 371732-10-09 12:38:00 Test Item Value Reference Range Interpretation Comments BUN (test code = BUN) 14 7-22 [place] 371732-10-09 12:38:00 Test Item Value Reference Range Interpretation Comments Creatinine Lvl (test code = Creatinine 0.98 0.50-1.40 Lvl) [place] 371732-10-09 12:38:00 Test Item Value Reference Range Interpretation Comments Sodium Lvl (test code = Sodium Lvl) 139 135-145 [place] 371732-10-09 12:38:00 Test Item Value Reference Range Interpretation Comments Potassium Lvl (test code = Potassium 4.2 3.5-5.1 Lvl) [place] 371732-10-09 12:38:00 Test Item Value Reference Range Interpretation Comments Chloride Lvl (test code = Chloride Lvl) 108 95-109 [place] 371732-10-09 12:38:00 Test Item Value Reference Range Interpretation Comments CO2 (test code = CO2) 27 24-32 [place] 371732-10-09 12:38:00 Test Item Value Reference Range Interpretation Comments Calcium Lvl (test code = Calcium Lvl) 9.5 8.5-10.5 [place] 371732-10-09 12:38:00 Test Item Value Reference Range Interpretation Comments Total Protein (test code = Total 7.4 6.4-8.4 Protein) [place] 371732-10-09 12:38:00 Test Item Value Reference Range Interpretation Comments Albumin Lvl (test code = Albumin Lvl) 3.6 3.5-5.0 [place] 371732-10-09 12:38:00 Test Item Value Reference Range Interpretation Comments ALT (test code = ALT) 21 See_Comment [Auto mated message] The system which ge nerated this result transmit kalie reference range : <=65. The reference range was not used to interpr et this result as sylvester l/abnormal. [place] 371732-10-09 12:38:00 Test Item Value Reference Range Interpretation Comments AST (test code = AST) 24 See_Comment [Auto mated message] The system which ge nerated this result transmit kalie reference range : <=37. The reference range was not used to interpr et this result as sylvester l/abnormal. [facility]2022-10-09 12:38:00 Test Item Value Reference Range Interpretation Comments Alk Phos (test code = Alk Phos) 71 39-136 [facility]2022-10-09 12:38:00 Test Item Value Reference Range Interpretation Comments Bili Total (test code = Bili Total) 0.5 0.2-1.3 [place] 371732-10-09 12:38:00 Test Item Value Reference Range Interpretation Comments AGAP (test code = AGAP) 8.2 10.0-20.0 [place] 371732-10-09 12:38:00 Test Item Value Reference Range Interpretation Comments B/C Ratio (test code = B/C Ratio) 14 1 6-25 [facility] [id number] 12:38:00 Test Item Value Reference Range Interpretation Comments Globulin (test code = Globulin) 3.8 2.7-4.2 [place] 371732-10-09 12:38:00 Test Item Value Reference Range Interpretation Comments A/G Ratio (test code = A/G Ratio) 0.9 1 0.7-1.6 [place] [address]-10-09 12:38:00 Test Item Value Reference Range Interpretation Comments eGFR (test code = eGFR) 58 [place] 371732-10-09 12:38:00 Test Item Value Reference Range Interpretation Comments Lipase Lvl (test code = Lipase Lvl) 35 73-393 [place] [address]-10-09 12:38:00 Test Item Value Reference Range Interpretation Comments WBC (test code = WBC) 6.1 3.7-10.4 [place] 851592-10-09 12:38:00 Test Item Value Reference Range Interpretation Comments RBC (test code = RBC) 4.17 4.20-5.40 [place] [address]-10-09 12:38:00 Test Item Value Reference Range Interpretation Comments Hgb (test code = Hgb) 12.9 12.0-16.0 [place] [address]-10-09 12:38:00 Test Item Value Reference Range Interpretation Comments Hct (test code = Hct) 39.2 36.0-48.0 [place] [address]-10-09 12:38:00 Test Item Value Reference Range Interpretation Comments MCV (test code = MCV) 94.0 80.0-98.0 [place] [address]-10-09 12:38:00 Test Item Value Reference Range Interpretation Comments MCH (test code = MCH) 30.9 pg 27.0-31.0 [place] [address]-10-09 12:38:00 Test Item Value Reference Range Interpretation Comments MCHC (test code = MCHC) 32.9 32.0-36.0 [place] [address]-10-09 12:38:00 Test Item Value Reference Range Interpretation Comments RDW (test code = RDW) 13.3 11.5-14.5 [place] [address]-10-09 12:38:00 Test Item Value Reference Range Interpretation Comments Platelet (test code = Platelet) 150 133-450 [facility] CenterXkdavoaECPJBHSGXH0034-51-47 12:38:00 Test Item Value Reference Range Interpretation Comments MPV (test code = MPV) 8.7 7.4-10.4 [place] [address]-10-09 12:38:00 Test Item Value Reference Range Interpretation Comments Segs (test code = Segs) 73.9 45.0-75.0 [facility] CenterRxzedvrLSBJUTRVSX5736-45-77 12:38:00 Test Item Value Reference Range Interpretation Comments Lymphocytes (test code = Lymphocytes) 13.8 20.0-40.0 [facility] CenterKfwcbauCJXFRGYPCV4396-30-66 12:38:00 Test Item Value Reference Range Interpretation Comments Monocytes (test code = Monocytes) 8.6 2.0-12.0 [facility] CenterMgizsdaVVKCNWCHCL8808-12-51 12:38:00 Test Item Value Reference Range Interpretation Comments Eosinophils (test code = 2.5 See_Comment [A utomated message] The Eosinophils) system which ge nerated this result tra nsmitted reference range : <=4.0. The reference r fermín was not used to int erpret this result as normal/abnormal . [facility] CenterDmjpddcYMLEKDWWAK3556-46-29 12:38:00 Test Item Value Reference Range Interpretation Comments Basophils (test code = 1.2 See_Comment [Aut omated message] The Basophils) system which ge nerated this result tra nsmitted reference range : <=1.0. The reference r fermín was not used to int erpret this result as normal/abnormal . [facility] CenterQnadkqbBWQKWANTPQ0409-19-95 12:38:00 Test Item Value Reference Range Interpretation Comments Neutrophils # (test code = Neutrophils 4.5 1.5-8.1 #) [facility] CenterYbzjohhRNAZSLOWYD3287-00-16 12:38:00 Test Item Value Reference Range Interpretation Comments Lymphocytes # (test code = Lymphocytes 0.8 1.0-5.5 #) [facility] CenterIhgfduhSQFQYCFTZJ1635-44-95 12:38:00 Test Item Value Reference Range Interpretation Comments Monocytes # (test code 0.5 See_Comment [Aut omated message] The = Monocytes #) system which generated this result tra nsmitted reference range : <=0.8. The reference r fermín was not used to int erpret this result as normal/abnormal . [facility] CenterOprifxiSQGOJPHTVA2273-00-80 12:38:00 Test Item Value Reference Range Interpretation Comments Eosinophils # (test code 0.2 See_Comment [A utomated message] The = Eosinophils #) system whic h generated this result tra nsmitted reference range : <=0.5. The reference r fermín was not used to int erpret this result as normal/abnormal . [place] 851592-10-09 12:38:00 Test Item Value Reference Range Interpretation Comments Basophils # (test code 0.1 See_Comment [Aut omated message] The = Basophils #) system which generated this result tra nsmitted reference range : <=0.2. The reference r fermín was not used to int erpret this result as normal/abnormal . [place] [address]-10-09 12:38:00 Test Item Value Reference Range Interpretation Comments Ethanol Lvl (test code = Ethanol Lvl) no gt [place] [address]-10-09 12:38:00 Test Item Value Reference Range Interpretation Comments Etoh (%) (test code = Etoh (%)) no gt [facility]2022-10-09 12:38:00 Test Item Value Reference Range Interpretation Comments Glucose Lvl (test code = Glucose Lvl) 100 70-99 [place] 371732-10-09 12:38:00 Test Item Value Reference Range Interpretation Comments BUN (test code = BUN) 14 7-22 [place] 371732-10-09 12:38:00 Test Item Value Reference Range Interpretation Comments Creatinine Lvl (test code = Creatinine 0.98 0.50-1.40 Lvl) [place] 371732-10-09 12:38:00 Test Item Value Reference Range Interpretation Comments Sodium Lvl (test code = Sodium Lvl) 139 135-145 [place] 371732-10-09 12:38:00 Test Item Value Reference Range Interpretation Comments Potassium Lvl (test code = Potassium 4.2 3.5-5.1 Lvl) [place] 371732-10-09 12:38:00 Test Item Value Reference Range Interpretation Comments Chloride Lvl (test code = Chloride Lvl) 108 95-109 [place] 371732-10-09 12:38:00 Test Item Value Reference Range Interpretation Comments CO2 (test code = CO2) 27 24-32 [place] 371732-10-09 12:38:00 Test Item Value Reference Range Interpretation Comments Calcium Lvl (test code = Calcium Lvl) 9.5 8.5-10.5 [place] 371732-10-09 12:38:00 Test Item Value Reference Range Interpretation Comments Total Protein (test code = Total 7.4 6.4-8.4 Protein) [place] 371732-10-09 12:38:00 Test Item Value Reference Range Interpretation Comments Albumin Lvl (test code = Albumin Lvl) 3.6 3.5-5.0 [place] 371732-10-09 12:38:00 Test Item Value Reference Range Interpretation Comments ALT (test code = ALT) 21 See_Comment [Auto mated message] The system which ge nerated this result transmit kalie reference range : <=65. The reference range was not used to interpr et this result as sylvester l/abnormal. [place] 371732-10-09 12:38:00 Test Item Value Reference Range Interpretation Comments AST (test code = AST) 24 See_Comment [Auto mated message] The system which ge nerated this result transmit kalie reference range : <=37. The reference range was not used to interpr et this result as sylvester l/abnormal. [facility] [id number] 12:38:00 Test Item Value Reference Range Interpretation Comments Alk Phos (test code = Alk Phos) 71 39-136 [facility] [id number] 12:38:00 Test Item Value Reference Range Interpretation Comments Bili Total (test code = Bili Total) 0.5 0.2-1.3 [place] 371732-10-09 12:38:00 Test Item Value Reference Range Interpretation Comments AGAP (test code = AGAP) 8.2 10.0-20.0 [facility] [id number] 12:38:00 Test Item Value Reference Range Interpretation Comments B/C Ratio (test code = B/C Ratio) 14 1 6-25 [facility] [id number] 12:38:00 Test Item Value Reference Range Interpretation Comments Globulin (test code = Globulin) 3.8 2.7-4.2 [facility] [id number] 12:38:00 Test Item Value Reference Range Interpretation Comments A/G Ratio (test code = A/G Ratio) 0.9 1 0.7-1.6 [place] 371732-10-09 12:38:00 Test Item Value Reference Range Interpretation Comments eGFR (test code = eGFR) 58 [facility] [id number] 12:38:00 Test Item Value Reference Range Interpretation Comments Lipase Lvl (test code = Lipase Lvl) 35 73-393 [facility] CenterWoiuiftAQTMVQZXWJ6785-60-58 12:38:00 Test Item Value Reference Range Interpretation Comments WBC (test code = WBC) 6.1 3.7-10.4 [facility] CenterMdtvwliUQXUTWEDLU9543-14-28 12:38:00 Test Item Value Reference Range Interpretation Comments RBC (test code = RBC) 4.17 4.20-5.40 [facility] CenterMzpuziyTTLQQEJBSW7894-35-07 12:38:00 Test Item Value Reference Range Interpretation Comments Hgb (test code = Hgb) 12.9 12.0-16.0 [place] 851592-10-09 12:38:00 Test Item Value Reference Range Interpretation Comments Hct (test code = Hct) 39.2 36.0-48.0 [facility] CenterHlxayrhLUGPEKPJRF1899-93-05 12:38:00 Test Item Value Reference Range Interpretation Comments MCV (test code = MCV) 94.0 80.0-98.0 [facility] CenterWhypttcWQLKLJREHN2005-18-65 12:38:00 Test Item Value Reference Range Interpretation Comments MCH (test code = MCH) 30.9 pg 27.0-31.0 [facility] CenterOuagcbrENLZAGKBRK2942-87-57 12:38:00 Test Item Value Reference Range Interpretation Comments MCHC (test code = MCHC) 32.9 32.0-36.0 [facility] CenterDjifxnhUDCTTNVUTM4004-77-88 12:38:00 Test Item Value Reference Range Interpretation Comments RDW (test code = RDW) 13.3 11.5-14.5 [place] 851592-10-09 12:38:00 Test Item Value Reference Range Interpretation Comments Platelet (test code = Platelet) 150 133-450 [facility] CenterBugiaeoGDORIXCURU1565-32-25 12:38:00 Test Item Value Reference Range Interpretation Comments MPV (test code = MPV) 8.7 7.4-10.4 [facility] CenterVlqvbpnUIGUTXPPYS8221-02-84 12:38:00 Test Item Value Reference Range Interpretation Comments Segs (test code = Segs) 73.9 45.0-75.0 [facility] CenterMizswuzLFKFAWALZF9223-30-13 12:38:00 Test Item Value Reference Range Interpretation Comments Lymphocytes (test code = Lymphocytes) 13.8 20.0-40.0 [place] 851592-10-09 12:38:00 Test Item Value Reference Range Interpretation Comments Monocytes (test code = Monocytes) 8.6 2.0-12.0 [facility] CenterXavtdrhBQCWLPNWZR3591-62-44 12:38:00 Test Item Value Reference Range Interpretation Comments Eosinophils (test code = 2.5 See_Comment [A utomated message] The Eosinophils) system which ge nerated this result tra nsmitted reference range : <=4.0. The reference r fermín was not used to int erpret this result as normal/abnormal . [place] 851592-10-09 12:38:00 Test Item Value Reference Range Interpretation Comments Basophils (test code = 1.2 See_Comment [Aut omated message] The Basophils) system which ge nerated this result tra nsmitted reference range : <=1.0. The reference r fermín was not used to int erpret this result as normal/abnormal . [facility] CenterYoofmcsNQPPYUJOEA6385-95-49 12:38:00 Test Item Value Reference Range Interpretation Comments Neutrophils # (test code = Neutrophils 4.5 1.5-8.1 #) [facility] CenterLfdsqzjIYVQMYCNFT0637-23-98 12:38:00 Test Item Value Reference Range Interpretation Comments Lymphocytes # (test code = Lymphocytes 0.8 1.0-5.5 #) [facility] CenterAxasluyBYPRNVGQJA1253-80-90 12:38:00 Test Item Value Reference Range Interpretation Comments Monocytes # (test code 0.5 See_Comment [Aut omated message] The = Monocytes #) system which generated this result tra nsmitted reference range : <=0.8. The reference r fermín was not used to int erpret this result as normal/abnormal . [place] 851592-10-09 12:38:00 Test Item Value Reference Range Interpretation Comments Eosinophils # (test code 0.2 See_Comment [A utomated message] The = Eosinophils #) system whic h generated this result tra nsmitted reference range : <=0.5. The reference r fermín was not used to int erpret this result as normal/abnormal . [place] 851592-10-09 12:38:00 Test Item Value Reference Range Interpretation Comments Basophils # (test code 0.1 See_Comment [Aut omated message] The = Basophils #) system which generated this result tra nsmitted reference range : <=0.2. The reference r fermín was not used to int erpret this result as normal/abnormal . [facility]LjinozmYJMXCYKVKX9220-51-04 12:38:00 Test Item Value Reference Range Interpretation Comments Ethanol Lvl (test code = Ethanol Lvl) no gt [facility] HospitalCbsktydAFOYREKVZM5590-29-60 12:38:00 Test Item Value Reference Range Interpretation Comments Etoh (%) (test code = Etoh (%)) no gt [facility] [id number] 16:33:00 Test Item Value Reference Range Interpretation Comments HS Troponin I (test code = HS Troponin 11 I) [facility] [id number] 16:33:00 Test Item Value Reference Range Interpretation Comments Glucose Lvl (test code = Glucose Lvl) 117 70-99 [facility] [id number] 16:33:00 Test Item Value Reference Range Interpretation Comments BUN (test code = BUN) 23 7-22 [facility] [id number] 16:33:00 Test Item Value Reference Range Interpretation Comments Creatinine Lvl (test code = Creatinine 1.00 0.50-1.40 Lvl) [facility] [id number] 16:33:00 Test Item Value Reference Range Interpretation Comments Sodium Lvl (test code = Sodium Lvl) 141 135-145 [facility] [id number] 16:33:00 Test Item Value Reference Range Interpretation Comments Potassium Lvl (test code = Potassium 4.5 3.5-5.1 Lvl) [facility] [id number] 16:33:00 Test Item Value Reference Range Interpretation Comments Chloride Lvl (test code = Chloride Lvl) 111 95-109 [facility] [employer] [id number] 16:33:00 Test Item Value Reference Range Interpretation Comments CO2 (test code = CO2) 26 24-32 [facility] [id number] 16:33:00 Test Item Value Reference Range Interpretation Comments Calcium Lvl (test code = Calcium Lvl) 9.7 8.5-10.5 [facility] [id number] 16:33:00 Test Item Value Reference Range Interpretation Comments AGAP (test code = AGAP) 8.5 10.0-20.0 [address]10-05 16:33:00 Test Item Value Reference Range Interpretation Comments eGFR (test code = eGFR) 56 [place] 371732-10-05 16:33:00 Test Item Value Reference Range Interpretation Comments Total Protein (test code = Total 7.7 6.4-8.4 Protein) [address]10-05 16:33:00 Test Item Value Reference Range Interpretation Comments Albumin Lvl (test code = Albumin Lvl) 3.8 3.5-5.[address]10-05 16:33:00 Test Item Value Reference Range Interpretation Comments ALT (test code = ALT) 26 See_Comment [Auto mated message] The system which ge nerated this result transmit kalie reference range : <=65. The reference range was not used to interpr et this result as sylvester l/abnormal. [address]10-05 16:33:00 Test Item Value Reference Range Interpretation Comments AST (test code = AST) 24 See_Comment [Auto mated message] The system which ge nerated this result transmit kalie reference range : <=37. The reference range was not used to interpr et this result as sylvester l/abnormal. [address]10-05 16:33:00 Test Item Value Reference Range Interpretation Comments Alk Phos (test code = Alk Phos) 75 39-136 [address]10-05 16:33:00 Test Item Value Reference Range Interpretation Comments Bili Total (test code = Bili Total) 0.3 0.2-1.[address]10-05 16:33:00 Test Item Value Reference Range Interpretation Comments Bili Direct (test code 0.1 See_Comment [Aut omated message] The = Bili Direct) system which generated this result tra nsmitted reference range : <=0.3. The reference r fermín was not used to int erpret this result as sylvester l/abnormal. [address]10-05 16:33:00 Test Item Value Reference Range Interpretation Comments Bili Indirect (test 0.2 See_Comment [Automa kalie message] The code = Bili Indirect) system which generated this result tra nsmitted reference range : <=1.0. The reference r fermín was not used to int erpret this result as normal/abnormal . [facility] [id number] 16:33:00 Test Item Value Reference Range Interpretation Comments Globulin (test code = Globulin) 3.9 2.7-4.2 [facility] [id number] 16:33:00 Test Item Value Reference Range Interpretation Comments A/G Ratio (test code = A/G Ratio) 1.0 1 0.7-1.6 [place] 851592-10-05 16:33:00 Test Item Value Reference Range Interpretation Comments WBC (test code = WBC) 5.9 3.7-10.4 [place] 851592-10-05 16:33:00 Test Item Value Reference Range Interpretation Comments RBC (test code = RBC) 4.33 4.20-5.40 [place] 851592-10-05 16:33:00 Test Item Value Reference Range Interpretation Comments Hgb (test code = Hgb) 13.1 12.0-16.0 [place] 851592-10-05 16:33:00 Test Item Value Reference Range Interpretation Comments Hct (test code = Hct) 40.7 36.0-48.0 [place] 851592-10-05 16:33:00 Test Item Value Reference Range Interpretation Comments MCV (test code = MCV) 94.0 80.0-98.0 [place] 851592-10-05 16:33:00 Test Item Value Reference Range Interpretation Comments MCH (test code = MCH) 30.3 pg 27.0-31.0 [place] 851592-10-05 16:33:00 Test Item Value Reference Range Interpretation Comments MCHC (test code = MCHC) 32.3 32.0-36.0 [place] 851592-10-05 16:33:00 Test Item Value Reference Range Interpretation Comments RDW (test code = RDW) 13.8 11.5-14.5 [place] 851592-10-05 16:33:00 Test Item Value Reference Range Interpretation Comments Platelet (test code = Platelet) 149 133-450 [facility] CenterCmyancoIKAJRMNYKT1544-10-74 16:33:00 Test Item Value Reference Range Interpretation Comments MPV (test code = MPV) 9.0 7.4-10.4 [place] 851592-10-05 16:33:00 Test Item Value Reference Range Interpretation Comments PT (test code = PT) See Note 3(02/08/22 11:33 12.0-14.7 AM) [place] 851592-10-05 16:33:00 Test Item Value Reference Range Interpretation Comments INR (test code = INR) See Note 2(02/08/22 0.85-1.17 11:33 AM) [place] [address]-10-05 16:33:00 Test Item Value Reference Range Interpretation Comments PTT (test code = PTT) See Note 4(02/08/22 22.9-35.8 11:33 AM) [place] [address]-10-05 16:33:00 Test Item Value Reference Range Interpretation Comments Segs (test code = Segs) 79.2 45.0-75.0 [place] 851592-10-05 16:33:00 Test Item Value Reference Range Interpretation Comments Lymphocytes (test code = Lymphocytes) 11.9 20.0-40.0 [place] [address]-10-05 16:33:00 Test Item Value Reference Range Interpretation Comments Monocytes (test code = Monocytes) 6.9 2.0-12.0 [facility] Cent[id number] 16:33:00 Test Item Value Reference Range Interpretation Comments Eosinophils (test code = 1.1 See_Comment [A utomated message] The Eosinophils) system which ge nerated this result tra nsmitted reference range : <=4.0. The reference r fermín was not used to int erpret this result as normal/abnormal . [facility] CenterQwddtyxEDIANTAOBW6849-63-00 16:33:00 Test Item Value Reference Range Interpretation Comments Basophils (test code = 0.9 See_Comment [Aut omated message] The Basophils) system which ge nerated this result tra nsmitted reference range : <=1.0. The reference r fermín was not used to int erpret this result as normal/abnormal . [place] 851592-10-05 16:33:00 Test Item Value Reference Range Interpretation Comments Neutrophils # (test code = Neutrophils 4.7 1.5-8.1 #) [facility] CenterVdpnrkxNUGEHGWBAA4584-80-94 16:33:00 Test Item Value Reference Range Interpretation Comments Lymphocytes # (test code = Lymphocytes 0.7 1.0-5.5 #) [facility] CenterXyszbfsDMPCZQJEAI0709-31-84 16:33:00 Test Item Value Reference Range Interpretation Comments Monocytes # (test code 0.4 See_Comment [Aut omated message] The = Monocytes #) system which generated this result tra nsmitted reference range : <=0.8. The reference r fermín was not used to int erpret this result as normal/abnormal . [facility] CenterCpztojcTJIPJDQVFE3340-52-74 16:33:00 Test Item Value Reference Range Interpretation Comments Eosinophils # (test code 0.1 See_Comment [A utomated message] The = Eosinophils #) system whic h generated this result tra nsmitted reference range : <=0.5. The reference r fermín was not used to int erpret this result as normal/abnormal . [facility] CenterAcdhpgqWYLEIXAKSR8673-05-78 16:33:00 Test Item Value Reference Range Interpretation Comments Basophils # (test code 0.1 See_Comment [Aut omated message] The = Basophils #) system which generated this result tra nsmitted reference range : <=0.2. The reference r fermín was not used to int erpret this result as normal/abnormal . [facility] [id number] 16:33:00 Test Item Value Reference Range Interpretation Comments HS Troponin I (test code = HS Troponin 11 I) [facility]2022-10-05 16:33:00 Test Item Value Reference Range Interpretation Comments Glucose Lvl (test code = Glucose Lvl) 117 70-99 [facility]2022-10-05 16:33:00 Test Item Value Reference Range Interpretation Comments BUN (test code = BUN) 23 7-22 [facility]2022-10-05 16:33:00 Test Item Value Reference Range Interpretation Comments Creatinine Lvl (test code = Creatinine 1.00 0.50-1.40 Lvl) [facility]2022-10-05 16:33:00 Test Item Value Reference Range Interpretation Comments Sodium Lvl (test code = Sodium Lvl) 141 135-145 [facility] [id number] 16:33:00 Test Item Value Reference Range Interpretation Comments Potassium Lvl (test code = Potassium 4.5 3.5-5.1 Lvl) [place] 371732-10-05 16:33:00 Test Item Value Reference Range Interpretation Comments Chloride Lvl (test code = Chloride Lvl) 111 95-109 [place] 371732-10-05 16:33:00 Test Item Value Reference Range Interpretation Comments CO2 (test code = CO2) 26 24-32 [place] 371732-10-05 16:33:00 Test Item Value Reference Range Interpretation Comments Calcium Lvl (test code = Calcium Lvl) 9.7 8.5-10.5 [place] 371732-10-05 16:33:00 Test Item Value Reference Range Interpretation Comments AGAP (test code = AGAP) 8.5 10.0-20.0 [place] 371732-10-05 16:33:00 Test Item Value Reference Range Interpretation Comments eGFR (test code = eGFR) 56 [place] 371732-10-05 16:33:00 Test Item Value Reference Range Interpretation Comments Total Protein (test code = Total 7.7 6.4-8.4 Protein) [place] 371732-10-05 16:33:00 Test Item Value Reference Range Interpretation Comments Albumin Lvl (test code = Albumin Lvl) 3.8 3.5-5.0 [place] 371732-10-05 16:33:00 Test Item Value Reference Range Interpretation Comments ALT (test code = ALT) 26 See_Comment [Auto mated message] The system which ge nerated this result transmit kalie reference range : <=65. The reference range was not used to interpr et this result as sylvester l/abnormal. [place] [address]-10-05 16:33:00 Test Item Value Reference Range Interpretation Comments AST (test code = AST) 24 See_Comment [Auto mated message] The system which ge nerated this result transmit kalie reference range : <=37. The reference range was not used to interpr et this result as sylvester l/abnormal. [place] [address]-10-05 16:33:00 Test Item Value Reference Range Interpretation Comments Alk Phos (test code = Alk Phos) 75 39-136 [address]10-05 16:33:00 Test Item Value Reference Range Interpretation Comments Bili Total (test code = Bili Total) 0.3 0.2-1.3 [address]10-05 16:33:00 Test Item Value Reference Range Interpretation Comments Bili Direct (test code 0.1 See_Comment [Aut omated message] The = Bili Direct) system which generated this result tra nsmitted reference range : <=0.3. The reference r fermín was not used to int erpret this result as sylvester l/abnormal. [address]10-05 16:33:00 Test Item Value Reference Range Interpretation Comments Bili Indirect (test 0.2 See_Comment [Automa kalie message] The code = Bili Indirect) system which generated this result tra nsmitted reference range : <=1.0. The reference r fermín was not used to int erpret this result as normal/abnormal . [address]10-05 16:33:00 Test Item Value Reference Range Interpretation Comments Globulin (test code = Globulin) 3.9 2.7-4.2 [address]10-05 16:33:00 Test Item Value Reference Range Interpretation Comments A/G Ratio (test code = A/G Ratio) 1.0 1 0.7-1.6 [place] [address]-10-05 16:33:00 Test Item Value Reference Range Interpretation Comments WBC (test code = WBC) 5.9 3.7-10.4 [place] 851592-10-05 16:33:00 Test Item Value Reference Range Interpretation Comments RBC (test code = RBC) 4.33 4.20-5.40 [place] [address]-10-05 16:33:00 Test Item Value Reference Range Interpretation Comments Hgb (test code = Hgb) 13.1 12.0-16.0 [place] [address]-10-05 16:33:00 Test Item Value Reference Range Interpretation Comments Hct (test code = Hct) 40.7 36.0-48.0 [address]10-05 16:33:00 Test Item Value Reference Range Interpretation Comments MCV (test code = MCV) 94.0 80.0-98.0 [address]10-05 16:33:00 Test Item Value Reference Range Interpretation Comments MCH (test code = MCH) 30.3 pg 27.0-31.0 [facility] CenterHauxhxpGYKXPFSBTD7344-91-05 16:33:00 Test Item Value Reference Range Interpretation Comments MCHC (test code = MCHC) 32.3 32.0-36.0 [facility] CenterVnfqqfyRUCLIQVJBA5602-84-73 16:33:00 Test Item Value Reference Range Interpretation Comments RDW (test code = RDW) 13.8 11.5-14.5 [facility] CenterKgvxmgoUZBUJTDECQ9943-44-48 16:33:00 Test Item Value Reference Range Interpretation Comments Platelet (test code = Platelet) 149 133-450 [facility] CenterQxyctuzLGUXPZGZWQ4859-62-23 16:33:00 Test Item Value Reference Range Interpretation Comments MPV (test code = MPV) 9.0 7.4-10.4 [facility] CenterPocuslqOLTRIJPNLF2609-39-12 16:33:00 Test Item Value Reference Range Interpretation Comments PT (test code = PT) See Note 3(02/08/22 11:33 12.0-14.7 AM) [place] [address]-10-05 16:33:00 Test Item Value Reference Range Interpretation Comments INR (test code = INR) See Note 2(02/08/22 0.85-1.17 11:33 AM) [place] 851592-10-05 16:33:00 Test Item Value Reference Range Interpretation Comments PTT (test code = PTT) See Note 4(02/08/22 22.9-35.8 11:33 AM) [place] 851592-10-05 16:33:00 Test Item Value Reference Range Interpretation Comments Segs (test code = Segs) 79.2 45.0-75.0 [place] [address]-10-05 16:33:00 Test Item Value Reference Range Interpretation Comments Lymphocytes (test code = Lymphocytes) 11.9 20.0-40.0 [place] 851592-10-05 16:33:00 Test Item Value Reference Range Interpretation Comments Monocytes (test code = Monocytes) 6.9 2.0-12.0 [place] 851592-10-05 16:33:00 Test Item Value Reference Range Interpretation Comments Eosinophils (test code = 1.1 See_Comment [A utomated message] The Eosinophils) system which ge nerated this result tra nsmitted reference range : <=4.0. The reference r fermín was not used to int erpret this result as normal/abnormal . [facility] CenterLpofqmhUVHQCHUMII4415-16-25 16:33:00 Test Item Value Reference Range Interpretation Comments Basophils (test code = 0.9 See_Comment [Aut omated message] The Basophils) system which ge nerated this result tra nsmitted reference range : <=1.0. The reference r fermín was not used to int erpret this result as normal/abnormal . [facility] CenterRncqzydKVJEHZPNLC6599-49-85 16:33:00 Test Item Value Reference Range Interpretation Comments Neutrophils # (test code = Neutrophils 4.7 1.5-8.1 #) [facility] CenterMhpzdwoSORTMDSVSX5907-39-93 16:33:00 Test Item Value Reference Range Interpretation Comments Lymphocytes # (test code = Lymphocytes 0.7 1.0-5.5 #) [facility] CenterCgkzxioTCPJBAQFII3883-35-44 16:33:00 Test Item Value Reference Range Interpretation Comments Monocytes # (test code 0.4 See_Comment [Aut omated message] The = Monocytes #) system which generated this result tra nsmitted reference range : <=0.8. The reference r fermín was not used to int erpret this result as normal/abnormal . [facility] CenterQlrhaikVDJHMFSUDH2763-27-15 16:33:00 Test Item Value Reference Range Interpretation Comments Eosinophils # (test code 0.1 See_Comment [A utomated message] The = Eosinophils #) system [facility] h generated this result tra nsmitted reference range : <=0.5. The reference r fermín was not used to int erpret this result as normal/abnormal . [facility] CenterOyzrdckBDMNZYTGYT1313-33-09 16:33:00 Test Item Value Reference Range Interpretation Comments Basophils # (test code 0.1 See_Comment [Aut omated message] The = Basophils #) system which generated this result tra nsmitted reference range : <=0.2. The reference r fermín was not used to int erpret this result as normal/abnormal . [facility]ARD[facility]ITALVGIKJVV5533-13-44 16:33:00 Test Item Value Reference Range Interpretation Comments HS Troponin I (test code = HS Troponin 11 I) [place] 371732-10-05 16:33:00 Test Item Value Reference Range Interpretation Comments Glucose Lvl (test code = Glucose Lvl) 117 70-99 [place] 371732-10-05 16:33:00 Test Item Value Reference Range Interpretation Comments BUN (test code = BUN) 23 7-22 [place] 371732-10-05 16:33:00 Test Item Value Reference Range Interpretation Comments Creatinine Lvl (test code = Creatinine 1.00 0.50-1.40 Lvl) [place] 371732-10-05 16:33:00 Test Item Value Reference Range Interpretation Comments Sodium Lvl (test code = Sodium Lvl) 141 135-145 [place] 371732-10-05 16:33:00 Test Item Value Reference Range Interpretation Comments Potassium Lvl (test code = Potassium 4.5 3.5-5.1 Lvl) [place] 371732-10-05 16:33:00 Test Item Value Reference Range Interpretation Comments Chloride Lvl (test code = Chloride Lvl) 111 95-109 [place] 371732-10-05 16:33:00 Test Item Value Reference Range Interpretation Comments CO2 (test code = CO2) 26 24-32 [place] 371732-10-05 16:33:00 Test Item Value Reference Range Interpretation Comments Calcium Lvl (test code = Calcium Lvl) 9.7 8.5-10.5 [place] 371732-10-05 16:33:00 Test Item Value Reference Range Interpretation Comments AGAP (test code = AGAP) 8.5 10.0-20.0 [place] 371732-10-05 16:33:00 Test Item Value Reference Range Interpretation Comments eGFR (test code = eGFR) 56 [place] 371732-10-05 16:33:00 Test Item Value Reference Range Interpretation Comments Total Protein (test code = Total 7.7 6.4-8.4 Protein) [place] 371732-10-05 16:33:00 Test Item Value Reference Range Interpretation Comments Albumin Lvl (test code = Albumin Lvl) 3.8 3.5-5.0 [place] 371732-10-05 16:33:00 Test Item Value Reference Range Interpretation Comments ALT (test code = ALT) 26 See_Comment [Auto mated message] The system which ge nerated this result transmit kalie reference range : <=65. The reference range was not used to interpr et this result as sylvester l/abnormal. [place] [address]-10-05 16:33:00 Test Item Value Reference Range Interpretation Comments AST (test code = AST) 24 See_Comment [Auto mated message] The system which ge nerated this result transmit kalie reference range : <=37. The reference range was not used to interpr et this result as sylvester l/abnormal. [facility] [id number] 16:33:00 Test Item Value Reference Range Interpretation Comments Alk Phos (test code = Alk Phos) 75 39-136 [facility] [id number] 16:33:00 Test Item Value Reference Range Interpretation Comments Bili Total (test code = Bili Total) 0.3 0.2-1.3 [address]10-05 16:33:00 Test Item Value Reference Range Interpretation Comments Bili Direct (test code 0.1 See_Comment [Aut omated message] The = Bili Direct) system which generated this result tra nsmitted reference range : <=0.3. The reference r fermín was not used to int erpret this result as sylvester l/abnormal. [facility] [id number] 16:33:00 Test Item Value Reference Range Interpretation Comments Bili Indirect (test 0.2 See_Comment [Automa kalie message] The code = Bili Indirect) system which generated this result tra nsmitted reference range : <=1.0. The reference r fermín was not used to int erpret this result as normal/abnormal . [facility] DZDEF2548-85-05 16:33:00 Test Item Value Reference Range Interpretation Comments Globulin (test code = Globulin) 3.9 2.7-4.2 [place] [address]-10-05 16:33:00 Test Item Value Reference Range Interpretation Comments A/G Ratio (test code = A/G Ratio) 1.0 1 0.7-1.6 [place] 851592-10-05 16:33:00 Test Item Value Reference Range Interpretation Comments WBC (test code = WBC) 5.9 3.7-10.4 [facility] CenterBpltexeQNTYRQLSGH3057-22-08 16:33:00 Test Item Value Reference Range Interpretation Comments RBC (test code = RBC) 4.33 4.20-5.40 [place] 851592-10-05 16:33:00 Test Item Value Reference Range Interpretation Comments Hgb (test code = Hgb) 13.1 12.0-16.0 [place] 851592-10-05 16:33:00 Test Item Value Reference Range Interpretation Comments Hct (test code = Hct) 40.7 36.0-48.0 [facility] CenterJilsxhlVKDJEXUKAY1894-48-59 16:33:00 Test Item Value Reference Range Interpretation Comments MCV (test code = MCV) 94.0 80.0-98.0 [place] 851592-10-05 16:33:00 Test Item Value Reference Range Interpretation Comments MCH (test code = MCH) 30.3 pg 27.0-31.0 [place] [address]-10-05 16:33:00 Test Item Value Reference Range Interpretation Comments MCHC (test code = MCHC) 32.3 32.0-36.0 [facility] CenterHhsbubiOMHPLYWVMY2157-02-68 16:33:00 Test Item Value Reference Range Interpretation Comments RDW (test code = RDW) 13.8 11.5-14.5 [facility] CenterZemgdecOQRKWNCVHL3665-63-07 16:33:00 Test Item Value Reference Range Interpretation Comments Platelet (test code = Platelet) 149 133-450 [facility] CenterClqsjacJMXWBILKCM8674-07-41 16:33:00 Test Item Value Reference Range Interpretation Comments MPV (test code = MPV) 9.0 7.4-10.4 [facility] CenterLbooaklKALKFOMRIF0949-56-82 16:33:00 Test Item Value Reference Range Interpretation Comments PT (test code = PT) See Note 3(02/08/22 11:33 12.0-14.7 AM) [place] [address]-10-05 16:33:00 Test Item Value Reference Range Interpretation Comments INR (test code = INR) See Note 2(02/08/22 0.85-1.17 11:33 AM) [place] 851592-10-05 16:33:00 Test Item Value Reference Range Interpretation Comments PTT (test code = PTT) See Note 4(02/08/22 22.9-35.8 11:33 AM) [address]10-05 16:33:00 Test Item Value Reference Range Interpretation Comments Segs (test code = Segs) 79.2 45.0-75.0 [address]10-05 16:33:00 Test Item Value Reference Range Interpretation Comments Lymphocytes (test code = Lymphocytes) 11.9 20.0-40.0 [address]10-05 16:33:00 Test Item Value Reference Range Interpretation Comments Monocytes (test code = Monocytes) 6.9 2.0-12.0 [address]10-05 16:33:00 Test Item Value Reference Range Interpretation Comments Eosinophils (test code = 1.1 See_Comment [A utomated message] The Eosinophils) system which ge nerated this result tra nsmitted reference range : <=4.0. The reference r fermín was not used to int erpret this result as normal/abnormal . [address]10-05 16:33:00 Test Item Value Reference Range Interpretation Comments Basophils (test code = 0.9 See_Comment [Aut omated message] The Basophils) system which ge nerated this result tra nsmitted reference range : <=1.0. The reference r fermín was not used to int erpret this result as normal/abnormal . [address]10-05 16:33:00 Test Item Value Reference Range Interpretation Comments Neutrophils # (test code = Neutrophils 4.7 1.5-8.1 #) [address]10-05 16:33:00 Test Item Value Reference Range Interpretation Comments Lymphocytes # (test code = Lymphocytes 0.7 1.0-5.5 #) [address]10-05 16:33:00 Test Item Value Reference Range Interpretation Comments Monocytes # (test code 0.4 See_Comment [Aut omated message] The = Monocytes #) system which generated this result tra nsmitted reference range : <=0.8. The reference r fermín was not used to int erpret this result as normal/abnormal . [address]10-05 16:33:00 Test Item Value Reference Range Interpretation Comments Eosinophils # (test code 0.1 See_Comment [A utomated message] The = Eosinophils #) system whic h generated this result tra nsmitted reference range : <=0.5. The reference r fermín was not used to int erpret this result as normal/abnormal . [facility] CenterNhqoghqMBAECWISVV4429-60-59 16:33:00 Test Item Value Reference Range Interpretation Comments Basophils # (test code 0.1 See_Comment [Aut omated message] The = Basophils #) system which generated this result tra nsmitted reference range : <=0.2. The reference r fermín was not used to int erpret this result as normal/abnormal . [place] 371732-01-02 11:56:00 Test Item Value Reference Range Interpretation Comments Glucose Lvl (test code = Glucose Lvl) 94 70-99 [place] 371732-01-02 11:56:00 Test Item Value Reference Range Interpretation Comments BUN (test code = BUN) 12 7-22 [place] 371732-01-02 11:56:00 Test Item Value Reference Range Interpretation Comments Creatinine Lvl (test code = Creatinine 0.85 0.50-1.40 Lvl) [place] 371732-01-02 11:56:00 Test Item Value Reference Range Interpretation Comments Sodium Lvl (test code = Sodium Lvl) 146 135-145 [place] 371732-01-02 11:56:00 Test Item Value Reference Range Interpretation Comments Potassium Lvl (test code = Potassium 4.7 3.5-5.1 Lvl) [place] 371732-01-02 11:56:00 Test Item Value Reference Range Interpretation Comments Chloride Lvl (test code = Chloride Lvl) 113 95-109 [place] 371732-01-02 11:56:00 Test Item Value Reference Range Interpretation Comments CO2 (test code = CO2) 28 24-32 [place] 371732-01-02 11:56:00 Test Item Value Reference Range Interpretation Comments Calcium Lvl (test code = Calcium Lvl) 9.0 8.5-10.5 [place] 371732-01-02 11:56:00 Test Item Value Reference Range Interpretation Comments AGAP (test code = AGAP) 9.7 10.0-20.0 [place] 371732-01-02 11:56:00 Test Item Value Reference Range Interpretation Comments eGFR (test code = eGFR) 64 [place] 851592-01-02 11:56:00 Test Item Value Reference Range Interpretation Comments Segs (test code = Segs) 66.1 45.0-75.0 [place] 851592-01-02 11:56:00 Test Item Value Reference Range Interpretation Comments Lymphocytes (test code = Lymphocytes) 19.5 20.0-40.0 [place] 851592-01-02 11:56:00 Test Item Value Reference Range Interpretation Comments Monocytes (test code = Monocytes) 10.6 2.0-12.0 [place] 851592-01-02 11:56:00 Test Item Value Reference Range Interpretation Comments Eosinophils (test code = 2.9 See_Comment [A utomated message] The Eosinophils) system which ge nerated this result tra nsmitted reference range : <=4.0. The reference r fermín was not used to int erpret this result as normal/abnormal . [place] 851592-01-02 11:56:00 Test Item Value Reference Range Interpretation Comments Basophils (test code = 0.9 See_Comment [Aut omated message] The Basophils) system which ge nerated this result tra nsmitted reference range : <=1.0. The reference r fermín was not used to int erpret this result as normal/abnormal . [place] 851592-01-02 11:56:00 Test Item Value Reference Range Interpretation Comments Neutrophils # (test code = Neutrophils 3.4 1.5-8.1 #) [place] 851592-01-02 11:56:00 Test Item Value Reference Range Interpretation Comments Lymphocytes # (test code = Lymphocytes 1.0 1.0-5.5 #) [place] [address]-01-02 11:56:00 Test Item Value Reference Range Interpretation Comments Monocytes # (test code 0.5 See_Comment [Aut omated message] The = Monocytes #) system which generated this result tra nsmitted reference range : <=0.8. The reference r fermín was not used to int erpret this result as normal/abnormal . [place] [address]-01-02 11:56:00 Test Item Value Reference Range Interpretation Comments Eosinophils # (test code 0.2 See_Comment [A utomated message] The = Eosinophils #) system whic h generated this result tra nsmitted reference range : <=0.5. The reference r fermín was not used to int erpret this result as normal/abnormal . [facility]wynyxuYJBDHEQJSY0095-32-13 11:56:00 Test Item Value Reference Range Interpretation Comments WBC (test code = WBC) 5.2 3.7-10.4 [facility] CenterSauqsuyJTMHSJRMEG1320-87-83 11:56:00 Test Item Value Reference Range Interpretation Comments RBC (test code = RBC) 3.45 4.20-5.40 [facility] CenterGvgjksdTOMQKFSWKE2281-54-94 11:56:00 Test Item Value Reference Range Interpretation Comments Hgb (test code = Hgb) 10.8 12.0-16.0 [facility] CenterJbzrxaiCWHQJEQGAR4345-43-38 11:56:00 Test Item Value Reference Range Interpretation Comments Hct (test code = Hct) 32.2 36.0-48.0 [place] 851592-01-02 11:56:00 Test Item Value Reference Range Interpretation Comments MCV (test code = MCV) 93.4 80.0-98.0 [facility] CenterJdyhbklUSDOQZLGXK1868-21-27 11:56:00 Test Item Value Reference Range Interpretation Comments MCH (test code = MCH) 31.3 pg 27.0-31.0 [facility] CenterRoivomqTKYUKNGOLW3535-53-84 11:56:00 Test Item Value Reference Range Interpretation Comments MCHC (test code = MCHC) 33.5 32.0-36.0 [facility] CenterWvgrmpbSIYPESFHUB8788-97-02 11:56:00 Test Item Value Reference Range Interpretation Comments RDW (test code = RDW) 14.4 11.5-14.5 [place] 851592-01-02 11:56:00 Test Item Value Reference Range Interpretation Comments Platelet (test code = Platelet) 141 133-450 [facility] CenterJkaeegsIDCOTPAFMC2634-06-13 11:56:00 Test Item Value Reference Range Interpretation Comments MPV (test code = MPV) 8.8 7.4-10.4 [place] 127072-01-02 11:56:00 Test Item Value Reference Range Interpretation Comments Trig (test code = Trig) 58 [place] 127072-01-02 11:56:00 Test Item Value Reference Range Interpretation Comments Chol (test code = Chol) 154 [facility]qr[facility]qIMTPKQ0015-89-73 11:56:00 Test Item Value Reference Range Interpretation Comments HDL (test code = HDL) 63 [facility]OcslcvyDNOCLC4357-15-01 11:56:00 Test Item Value Reference Range Interpretation Comments CHD Risk (test code = CHD Risk) 2.44 1 3.90-5.80 [facility]UlqbojkDXSNFY1104-86-32 11:56:00 Test Item Value Reference Range Interpretation Comments LDL (Calculated) (test code = LDL 79 (Calculated)) [facility] TexasYpzpxahSHAYBA5662-15-10 11:56:00 Test Item Value Reference Range Interpretation Comments VLDL (test code = VLDL) 12 1 [facility] SCJYKQUYH7599-61-04 11:56:00 Test Item Value Reference Range Interpretation Comments Hgb A1C (test code = Hgb A1C) 5.9 [facility]2022-01-02 11:56:00 Test Item Value Reference Range Interpretation Comments Glucose Lvl (test code = Glucose Lvl) 94 70-99 [facility]2022-01-02 11:56:00 Test Item Value Reference Range Interpretation Comments BUN (test code = BUN) 12 7-22 [place] 371732-01-02 11:56:00 Test Item Value Reference Range Interpretation Comments Creatinine Lvl (test code = Creatinine 0.85 0.50-1.40 Lvl) [facility]2022-01-02 11:56:00 Test Item Value Reference Range Interpretation Comments Sodium Lvl (test code = Sodium Lvl) 146 135-145 [facility]2022-01-02 11:56:00 Test Item Value Reference Range Interpretation Comments Potassium Lvl (test code = Potassium 4.7 3.5-5.1 Lvl) [facility]2022-01-02 11:56:00 Test Item Value Reference Range Interpretation Comments Chloride Lvl (test code = Chloride Lvl) 113 95-109 [place] 371732-01-02 11:56:00 Test Item Value Reference Range Interpretation Comments CO2 (test code = CO2) 28 24-32 [place] 371732-01-02 11:56:00 Test Item Value Reference Range Interpretation Comments Calcium Lvl (test code = Calcium Lvl) 9.0 8.5-10.5 [place] 371732-01-02 11:56:00 Test Item Value Reference Range Interpretation Comments AGAP (test code = AGAP) 9.7 10.0-20.0 [place] 371732-01-02 11:56:00 Test Item Value Reference Range Interpretation Comments eGFR (test code = eGFR) 64 [place] 851592-01-02 11:56:00 Test Item Value Reference Range Interpretation Comments Segs (test code = Segs) 66.1 45.0-75.0 [place] [address]-01-02 11:56:00 Test Item Value Reference Range Interpretation Comments Lymphocytes (test code = Lymphocytes) 19.5 20.0-40.0 [place] [address]-01-02 11:56:00 Test Item Value Reference Range Interpretation Comments Monocytes (test code = Monocytes) 10.6 2.0-12.0 [place] 851592-01-02 11:56:00 Test Item Value Reference Range Interpretation Comments Eosinophils (test code = 2.9 See_Comment [A utomated message] The Eosinophils) system which ge nerated this result tra nsmitted reference range : <=4.0. The reference r fermín was not used to int erpret this result as normal/abnormal . [place] [address]-01-02 11:56:00 Test Item Value Reference Range Interpretation Comments Basophils (test code = 0.9 See_Comment [Aut omated message] The Basophils) system which ge nerated this result tra nsmitted reference range : <=1.0. The reference r fermín was not used to int erpret this result as normal/abnormal . [place] 851592-01-02 11:56:00 Test Item Value Reference Range Interpretation Comments Neutrophils # (test code = Neutrophils 3.4 1.5-8.1 #) [place] 851592-01-02 11:56:00 Test Item Value Reference Range Interpretation Comments Lymphocytes # (test code = Lymphocytes 1.0 1.0-5.5 #) [place] [address]-01-02 11:56:00 Test Item Value Reference Range Interpretation Comments Monocytes # (test code 0.5 See_Comment [Aut omated message] The = Monocytes #) system which generated this result tra nsmitted reference range : <=0.8. The reference r fermín was not used to int erpret this result as normal/abnormal . [facility] CenterGvypxedJISCIOYVUI2232-11-71 11:56:00 Test Item Value Reference Range Interpretation Comments Eosinophils # (test code 0.2 See_Comment [A utomated message] The = Eosinophils #) system whic h generated this result tra nsmitted reference range : <=0.5. The reference r fermín was not used to int erpret this result as normal/abnormal . [facility] CenterJoopdcxPLAPVMJLAS7833-51-43 11:56:00 Test Item Value Reference Range Interpretation Comments WBC (test code = WBC) 5.2 3.7-10.4 [place] 851592-01-02 11:56:00 Test Item Value Reference Range Interpretation Comments RBC (test code = RBC) 3.45 4.20-5.40 [place] 851592-01-02 11:56:00 Test Item Value Reference Range Interpretation Comments Hgb (test code = Hgb) 10.8 12.0-16.0 [facility] CenterVhzjevgJJCOOMTYDJ2978-07-46 11:56:00 Test Item Value Reference Range Interpretation Comments Hct (test code = Hct) 32.2 36.0-48.0 [facility] CenterCywagdwTXJEJYITMQ4742-76-44 11:56:00 Test Item Value Reference Range Interpretation Comments MCV (test code = MCV) 93.4 80.0-98.0 [place] 851592-01-02 11:56:00 Test Item Value Reference Range Interpretation Comments MCH (test code = MCH) 31.3 pg 27.0-31.0 [facility] CenterTfknmikXQSWDLYGLS6111-27-52 11:56:00 Test Item Value Reference Range Interpretation Comments MCHC (test code = MCHC) 33.5 32.0-36.0 [facility] CenterVrbaieuVYMPLLZMIL8721-57-11 11:56:00 Test Item Value Reference Range Interpretation Comments RDW (test code = RDW) 14.4 11.5-14.5 [place] 851592-01-02 11:56:00 Test Item Value Reference Range Interpretation Comments Platelet (test code = Platelet) 141 133-450 [facility] CenterAgucuioWPWKEDVQLC7083-47-18 11:56:00 Test Item Value Reference Range Interpretation Comments MPV (test code = MPV) 8.8 7.4-10.4 [facility]ZjdczvaOJJULH2578-24-72 11:56:00 Test Item Value Reference Range Interpretation Comments Trig (test code = Trig) 58 [facility] TexasAivhhruXNBTZC5970-49-56 11:56:00 Test Item Value Reference Range Interpretation Comments Chol (test code = Chol) 154 [facility] TexasIirgqwgMWDPDP7902-85-07 11:56:00 Test Item Value Reference Range Interpretation Comments HDL (test code = HDL) 63 [facility] TexasSbyiavbOLJTDG3434-19-21 11:56:00 Test Item Value Reference Range Interpretation Comments CHD Risk (test code = CHD Risk) 2.44 1 3.90-5.80 [place] [address]-01-02 11:56:00 Test Item Value Reference Range Interpretation Comments LDL (Calculated) (test code = LDL 79 (Calculated)) [place] [address]-01-02 11:56:00 Test Item Value Reference Range Interpretation Comments VLDL (test code = VLDL) 12 1 [facility] TEEHVUVAT5510-90-79 11:56:00 Test Item Value Reference Range Interpretation Comments Hgb A1C (test code = Hgb A1C) 5.9 [facility]2022-01-02 11:56:00 Test Item Value Reference Range Interpretation Comments Glucose Lvl (test code = Glucose Lvl) 94 70-99 [facility]2022-01-02 11:56:00 Test Item Value Reference Range Interpretation Comments BUN (test code = BUN) 12 7-22 [place] 371732-01-02 11:56:00 Test Item Value Reference Range Interpretation Comments Creatinine Lvl (test code = Creatinine 0.85 0.50-1.40 Lvl) [facility]2022-01-02 11:56:00 Test Item Value Reference Range Interpretation Comments Sodium Lvl (test code = Sodium Lvl) 146 135-145 [place] 371732-01-02 11:56:00 Test Item Value Reference Range Interpretation Comments Potassium Lvl (test code = Potassium 4.7 3.5-5.1 Lvl) [facility]2022-01-02 11:56:00 Test Item Value Reference Range Interpretation Comments Chloride Lvl (test code = Chloride Lvl) 113 95-109 [place] 371732-01-02 11:56:00 Test Item Value Reference Range Interpretation Comments CO2 (test code = CO2) 28 24-32 [place] 371732-01-02 11:56:00 Test Item Value Reference Range Interpretation Comments Calcium Lvl (test code = Calcium Lvl) 9.0 8.5-10.5 [place] 371732-01-02 11:56:00 Test Item Value Reference Range Interpretation Comments AGAP (test code = AGAP) 9.7 10.0-20.0 [place] 371732-01-02 11:56:00 Test Item Value Reference Range Interpretation Comments eGFR (test code = eGFR) 64 [place] 851592-01-02 11:56:00 Test Item Value Reference Range Interpretation Comments Segs (test code = Segs) 66.1 45.0-75.0 [place] 851592-01-02 11:56:00 Test Item Value Reference Range Interpretation Comments Lymphocytes (test code = Lymphocytes) 19.5 20.0-40.0 [place] 851592-01-02 11:56:00 Test Item Value Reference Range Interpretation Comments Monocytes (test code = Monocytes) 10.6 2.0-12.0 [place] 851592-01-02 11:56:00 Test Item Value Reference Range Interpretation Comments Eosinophils (test code = 2.9 See_Comment [A utomated message] The Eosinophils) system which ge nerated this result tra nsmitted reference range : <=4.0. The reference r fermín was not used to int erpret this result as normal/abnormal . [place] 851592-01-02 11:56:00 Test Item Value Reference Range Interpretation Comments Basophils (test code = 0.9 See_Comment [Aut omated message] The Basophils) system which ge nerated this result tra nsmitted reference range : <=1.0. The reference r fermín was not used to int erpret this result as normal/abnormal . [place] 851592-01-02 11:56:00 Test Item Value Reference Range Interpretation Comments Neutrophils # (test code = Neutrophils 3.4 1.5-8.1 #) [place] 851592-01-02 11:56:00 Test Item Value Reference Range Interpretation Comments Lymphocytes # (test code = Lymphocytes 1.0 1.0-5.5 #) [place] 851592-01-02 11:56:00 Test Item Value Reference Range Interpretation Comments Monocytes # (test code 0.5 See_Comment [Aut omated message] The = Monocytes #) system which generated this result tra nsmitted reference range : <=0.8. The reference r fermín was not used to int erpret this result as normal/abnormal . [place] 851592-01-02 11:56:00 Test Item Value Reference Range Interpretation Comments Eosinophils # (test code 0.2 See_Comment [A utomated message] The = Eosinophils #) system whic h generated this result tra nsmitted reference range : <=0.5. The reference r fermín was not used to int erpret this result as normal/abnormal . [place] 851592-01-02 11:56:00 Test Item Value Reference Range Interpretation Comments WBC (test code = WBC) 5.2 3.7-10.4 [place] 851592-01-02 11:56:00 Test Item Value Reference Range Interpretation Comments RBC (test code = RBC) 3.45 4.20-5.40 [place] 851592-01-02 11:56:00 Test Item Value Reference Range Interpretation Comments Hgb (test code = Hgb) 10.8 12.0-16.0 [place] [address]-01-02 11:56:00 Test Item Value Reference Range Interpretation Comments Hct (test code = Hct) 32.2 36.0-48.0 [place] 851592-01-02 11:56:00 Test Item Value Reference Range Interpretation Comments MCV (test code = MCV) 93.4 80.0-98.0 [place] [address]-01-02 11:56:00 Test Item Value Reference Range Interpretation Comments MCH (test code = MCH) 31.3 pg 27.0-31.0 [place] 851592-01-02 11:56:00 Test Item Value Reference Range Interpretation Comments MCHC (test code = MCHC) 33.5 32.0-36.0 [place] [address]-01-02 11:56:00 Test Item Value Reference Range Interpretation Comments RDW (test code = RDW) 14.4 11.5-14.5 [facility]CqimrgqHDBTBQLMAI0668-92-29 11:56:00 Test Item Value Reference Range Interpretation Comments Platelet (test code = Platelet) 141 133-450 [facility]YvnpzynFEMTIPNMOX7383-53-13 11:56:00 Test Item Value Reference Range Interpretation Comments MPV (test code = MPV) 8.8 7.4-10.4 [facility] TexasXmqnbgtVKLQIM8498-84-74 11:56:00 Test Item Value Reference Range Interpretation Comments Trig (test code = Trig) 58 [facility] TexasWprdosxZEGPVI6879-06-65 11:56:00 Test Item Value Reference Range Interpretation Comments Chol (test code = Chol) 154 [facility] TexasXgpocdlZPOTKC6582-19-61 11:56:00 Test Item Value Reference Range Interpretation Comments HDL (test code = HDL) 63 [facility]XkkctrhTHYKSQ2481-32-83 11:56:00 Test Item Value Reference Range Interpretation Comments CHD Risk (test code = CHD Risk) 2.44 1 3.90-5.80 [facility] TexasJijcvwyZZKGHE4421-12-88 11:56:00 Test Item Value Reference Range Interpretation Comments LDL (Calculated) (test code = LDL 79 (Calculated)) [facility] TexasFnzoxeaEWIGYM9134-74-91 11:56:00 Test Item Value Reference Range Interpretation Comments VLDL (test code = VLDL) 12 1 [facility] CWFGXATMM7137-14-13 11:56:00 Test Item Value Reference Range Interpretation Comments Hgb A1C (test code = Hgb A1C) 5.9 [facility] AND [id number] 08:33:00 Test Item Value Reference Range Interpretation Comments UA Turbidity (test code Slight *ABN*(05/08/21 = UA Turbidity) 2:33 AM) [facility] AND [id number] 08:33:00 Test Item Value Reference Range Interpretation Comments UA Spec Grav (test code = UA Spec 1.012 1 Grav) [facility] AND [id number] 08:33:00 Test Item Value Reference Range Interpretation Comments UA pH (test code = UA pH) 5.0 1 5.0-8.0 [facility] AND [id number] 08:33:00 Test Item Value Reference Range Interpretation Comments UA Protein (test code = UA Negative mg/dL Protein) [facility] AND [id number] 08:33:00 Test Item Value Reference Range Interpretation Comments UA Glucose (test code = UA Negative mg/dL Glucose) [facility] AND [id number] 08:33:00 Test Item Value Reference Range Interpretation Comments UA Ketones (test code = UA Negative mg/dL Ketones) [facility] AND [id number] 08:33:00 Test Item Value Reference Range Interpretation Comments UA Bili (test code = Negative *NA*(05/08/21 UA Bili) 2:33 AM) [facility] AND [id number] 08:33:00 Test Item Value Reference Range Interpretation Comments UA Blood (test code = Small *ABN*(05/08/21 UA Blood) 2:33 AM) [facility] AND [id number] 08:33:00 Test Item Value Reference Range Interpretation Comments UA Nitrite (test code Negative (05/08/21 2:33 = UA Nitrite) AM) [facility] AND [id number] 08:33:00 Test Item Value Reference Range Interpretation Comments UA Leuk Est (test code Large *ABN*(05/08/21 2:33 = UA Leuk Est) AM) [facility] AND [id number] 08:33:00 Test Item Value Reference Range Interpretation Comments UA Sq Epi (test code = UA Sq Occasional /LPF Epi) [facility] AND [id number] 08:33:00 Test Item Value Reference Range Interpretation Comments UA WBC (test code = 65 See_Comment [Automa kalie message] The UA WBC) system which ge nerated this result transmit kalie reference range : <=5. The reference range was not used to interpr et this result as sylvester l/abnormal. [facility] AND [id number] 08:33:00 Test Item Value Reference Range Interpretation Comments UA RBC (test code = 2 See_Comment [Automa kalie message] The UA RBC) system which ge nerated this result transmit kalie reference range : <=2. The reference range was not used to interpr et this result as sylvester l/abnormal. [facility] AND [id number] 08:33:00 Test Item Value Reference Range Interpretation Comments UA Color (test code = UA Color) Ltyellow [facility] AND [id number] 08:33:00 Test Item Value Reference Range Interpretation Comments UA Urobilinogen (test code = UA <=1.0 mg/dL 0.1-1.0 Urobilinogen) [facility] AND [id number] 08:33:00 Test Item Value Reference Range Interpretation Comments UA Turbidity (test code Slight *ABN*(05/08/21 = UA Turbidity) 2:33 AM) [facility] AND [id number] 08:33:00 Test Item Value Reference Range Interpretation Comments UA Spec Grav (test code = UA Spec 1.012 1 Grav) [facility] AND [id number] 08:33:00 Test Item Value Reference Range Interpretation Comments UA pH (test code = UA pH) 5.0 1 5.0-8.0 [facility] AND [id number] 08:33:00 Test Item Value Reference Range Interpretation Comments UA Protein (test code = UA Negative mg/dL Protein) [facility] AND [id number] 08:33:00 Test Item Value Reference Range Interpretation Comments UA Glucose (test code = UA Negative mg/dL Glucose) [facility] AND [id number] 08:33:00 Test Item Value Reference Range Interpretation Comments UA Ketones (test code = UA Negative mg/dL Ketones) [facility] AND [id number] 08:33:00 Test Item Value Reference Range Interpretation Comments UA Bili (test code = Negative *NA*(05/08/21 UA Bili) 2:33 AM) [facility] AND [id number] 08:33:00 Test Item Value Reference Range Interpretation Comments UA Blood (test code = Small *ABN*(05/08/21 UA Blood) 2:33 AM) [facility] AND [id number] 08:33:00 Test Item Value Reference Range Interpretation Comments UA Nitrite (test code Negative (05/08/21 2:33 = UA Nitrite) AM) [facility] AND [id number] 08:33:00 Test Item Value Reference Range Interpretation Comments UA Leuk Est (test code Large *ABN*(05/08/21 2:33 = UA Leuk Est) AM) [facility] AND [id number] 08:33:00 Test Item Value Reference Range Interpretation Comments UA Sq Epi (test code = UA Sq Occasional /LPF Epi) [facility] AND [id number] 08:33:00 Test Item Value Reference Range Interpretation Comments UA WBC (test code = 65 See_Comment [Automa kalie message] The UA WBC) system which ge nerated this result transmit kalie reference range : <=5. The reference range was not used to interpr et this result as sylvester l/abnormal. [facility] AND [id number] 08:33:00 Test Item Value Reference Range Interpretation Comments UA RBC (test code = 2 See_Comment [Automa kalie message] The UA RBC) system which ge nerated this result transmit kalie reference range : <=2. The reference range was not used to interpr et this result as sylvester l/abnormal. [facility] AND [id number] 08:33:00 Test Item Value Reference Range Interpretation Comments UA Color (test code = UA Color) Ltyellow [facility] AND [id number] 08:33:00 Test Item Value Reference Range Interpretation Comments UA Urobilinogen (test code = UA <=1.0 mg/dL 0.1-1.0 Urobilinogen) [facility] AND [id number] 08:33:00 Test Item Value Reference Range Interpretation Comments UA Turbidity (test code Slight *ABN*(05/08/21 = UA Turbidity) 2:33 AM) [facility] AND [id number] 08:33:00 Test Item Value Reference Range Interpretation Comments UA Spec Grav (test code = UA Spec 1.012 1 Grav) [facility] AND [id number] 08:33:00 Test Item Value Reference Range Interpretation Comments UA pH (test code = UA pH) 5.0 1 5.0-8.0 [facility] AND [id number] 08:33:00 Test Item Value Reference Range Interpretation Comments UA Protein (test code = UA Negative mg/dL Protein) [facility] AND [id number] 08:33:00 Test Item Value Reference Range Interpretation Comments UA Glucose (test code = UA Negative mg/dL Glucose) [facility] AND [id number] 08:33:00 Test Item Value Reference Range Interpretation Comments UA Ketones (test code = UA Negative mg/dL Ketones) [facility] AND [id number] 08:33:00 Test Item Value Reference Range Interpretation Comments UA Bili (test code = Negative *NA*(05/08/21 UA Bili) 2:33 AM) [facility] AND [id number] 08:33:00 Test Item Value Reference Range Interpretation Comments UA Blood (test code = Small *ABN*(05/08/21 UA Blood) 2:33 AM) [facility] AND [id number] 08:33:00 Test Item Value Reference Range Interpretation Comments UA Nitrite (test code Negative (05/08/21 2:33 = UA Nitrite) AM) [facility] AND [id number] 08:33:00 Test Item Value Reference Range Interpretation Comments UA Leuk Est (test code Large *ABN*(05/08/21 2:33 = UA Leuk Est) AM) [facility] AND [id number] 08:33:00 Test Item Value Reference Range Interpretation Comments UA Sq Epi (test code = UA Sq Occasional /LPF Epi) [facility] AND [id number] 08:33:00 Test Item Value Reference Range Interpretation Comments UA WBC (test code = 65 See_Comment [Automa kalie message] The UA WBC) system which ge nerated this result transmit kalie reference range : <=5. The reference range was not used to interpr et this result as sylvester l/abnormal. [facility] AND [id number] 08:33:00 Test Item Value Reference Range Interpretation Comments UA RBC (test code = 2 See_Comment [Automa kalie message] The UA RBC) system which ge nerated this result transmit kalie reference range : <=2. The reference range was not used to interpr et this result as sylvester l/abnormal. [facility] AND [id number] 08:33:00 Test Item Value Reference Range Interpretation Comments UA Color (test code = UA Color) Ltyellow [facility] AND [id number] 08:33:00 Test Item Value Reference Range Interpretation Comments UA Urobilinogen (test code = UA <=1.0 mg/dL 0.1-1.0 Urobilinogen) [facility] AND [id number] 20:23:00 Test Item Value Reference Range Interpretation Comments UA Turbidity (test code = Clear (05/07/21 2:23 UA Turbidity) PM) [facility] AND [id number] 20:23:00 Test Item Value Reference Range Interpretation Comments UA Spec Grav (test code = UA Spec 1.005 1 Grav) [facility] AND [id number] 20:23:00 Test Item Value Reference Range Interpretation Comments UA pH (test code = UA pH) 5.0 1 5.0-8.0 [facility] AND [id number] 20:23:00 Test Item Value Reference Range Interpretation Comments UA Protein (test code = UA Negative mg/dL Protein) [facility] AND [id number] 20:23:00 Test Item Value Reference Range Interpretation Comments UA Glucose (test code = UA Negative mg/dL Glucose) [facility] AND [id number] 20:23:00 Test Item Value Reference Range Interpretation Comments UA Ketones (test code = UA Negative mg/dL Ketones) [facility] AND [id number] 20:23:00 Test Item Value Reference Range Interpretation Comments UA Bili (test code = Negative *NA*(05/07/21 UA Bili) 2:23 PM) [facility] AND [id number] 20:23:00 Test Item Value Reference Range Interpretation Comments UA Blood (test code = Small *ABN*(05/07/21 UA Blood) 2:23 PM) [facility] AND [id number] 20:23:00 Test Item Value Reference Range Interpretation Comments UA Nitrite (test code Negative (05/07/21 2:23 = UA Nitrite) PM) [facility] AND [id number] 20:23:00 Test Item Value Reference Range Interpretation Comments UA Leuk Est (test code Trace *ABN*(05/07/21 2:23 = UA Leuk Est) PM) [facility] AND [id number] 20:23:00 Test Item Value Reference Range Interpretation Comments UA WBC (test code = 6 See_Comment [Automa kalie message] The UA WBC) system which ge nerated this result transmit kalie reference range : <=5. The reference range was not used to interpr et this result as sylvester l/abnormal. [facility] [id number] 20:23:00 Test Item Value Reference Range Interpretation Comments UA RBC (test code = no gt See_Comment [Automa kalie message] The UA RBC) system which ge nerated this result transmit kalie reference range : <=2. The reference range was not used to interpr et this result as sylvester l/abnormal. [facility] AND [id number] 20:23:00 Test Item Value Reference Range Interpretation Comments UA Hyal Cast (test 1 See_Comment [Automat ed message] The code = UA Hyal Cast) system which generated this result transmit kalie reference range : <=2. The reference range was not used to interpr et this result as sylvester l/abnormal. [facility] AND [id number] 20:23:00 Test Item Value Reference Range Interpretation Comments UA Sq Epi (test code = UA Sq Epi) None Seen [facility] AND [id number] 20:23:00 Test Item Value Reference Range Interpretation Comments UA Color (test code = UA Color) STRAW [facility] AND [id number] 20:23:00 Test Item Value Reference Range Interpretation Comments UA Urobilinogen (test code = UA <=1.0 mg/dL 0.1-1.0 Urobilinogen) [facility] AND [id number] 20:23:00 Test Item Value Reference Range Interpretation Comments UA Turbidity (test code = Clear (05/07/21 2:23 UA Turbidity) PM) [facility] AND [id number] 20:23:00 Test Item Value Reference Range Interpretation Comments UA Spec Grav (test code = UA Spec 1.005 1 Grav) [facility] AND [id number] 20:23:00 Test Item Value Reference Range Interpretation Comments UA pH (test code = UA pH) 5.0 1 5.0-8.0 [facility] AND [id number] 20:23:00 Test Item Value Reference Range Interpretation Comments UA Protein (test code = UA Negative mg/dL Protein) [facility] AND [id number] 20:23:00 Test Item Value Reference Range Interpretation Comments UA Glucose (test code = UA Negative mg/dL Glucose) [facility] AND [id number] 20:23:00 Test Item Value Reference Range Interpretation Comments UA Ketones (test code = UA Negative mg/dL Ketones) [facility] AND [id number] 20:23:00 Test Item Value Reference Range Interpretation Comments UA Bili (test code = Negative *NA*(05/07/21 UA Bili) 2:23 PM) [facility] AND [id number] 20:23:00 Test Item Value Reference Range Interpretation Comments UA Blood (test code = Small *ABN*(05/07/21 UA Blood) 2:23 PM) [facility] AND [id number] 20:23:00 Test Item Value Reference Range Interpretation Comments UA Nitrite (test code Negative (05/07/21 2:23 = UA Nitrite) PM) [facility] AND [id number] 20:23:00 Test Item Value Reference Range Interpretation Comments UA Leuk Est (test code Trace *ABN*(05/07/21 2:23 = UA Leuk Est) PM) [facility] AND [id number] 20:23:00 Test Item Value Reference Range Interpretation Comments UA WBC (test code = 6 See_Comment [Automa kalie message] The UA WBC) system which ge nerated this result transmit kalie reference range : <=5. The reference range was not used to interpr et this result as sylvester l/abnormal. [facility] AND [id number] 20:23:00 Test Item Value Reference Range Interpretation Comments UA RBC (test code = no gt See_Comment [Automa kalie message] The UA RBC) system which ge nerated this result transmit kalie reference range : <=2. The reference range was not used to interpr et this result as sylvester l/abnormal. [facility] AND [id number] 20:23:00 Test Item Value Reference Range Interpretation Comments UA Hyal Cast (test 1 See_Comment [Automat ed message] The code = UA Hyal Cast) system which generated this result transmit kalie reference range : <=2. The reference range was not used to interpr et this result as sylvester l/abnormal. [facility] AND [id number] 20:23:00 Test Item Value Reference Range Interpretation Comments UA Sq Epi (test code = UA Sq Epi) None Seen [facility] AND [id number] 20:23:00 Test Item Value Reference Range Interpretation Comments UA Color (test code = UA Color) STRAW [facility] AND [id number] 20:23:00 Test Item Value Reference Range Interpretation Comments UA Urobilinogen (test code = UA <=1.0 mg/dL 0.1-1.0 Urobilinogen) [facility] AND [id number] 20:23:00 Test Item Value Reference Range Interpretation Comments UA Turbidity (test code = Clear (05/07/21 2:23 UA Turbidity) PM) [facility] AND [id number] 20:23:00 Test Item Value Reference Range Interpretation Comments UA Spec Grav (test code = UA Spec 1.005 1 Grav) [facility] AND [id number] 20:23:00 Test Item Value Reference Range Interpretation Comments UA pH (test code = UA pH) 5.0 1 5.0-8.0 [facility] AND [id number] 20:23:00 Test Item Value Reference Range Interpretation Comments UA Protein (test code = UA Negative mg/dL Protein) [facility] AND [id number] 20:23:00 Test Item Value Reference Range Interpretation Comments UA Glucose (test code = UA Negative mg/dL Glucose) [facility] AND [id number] 20:23:00 Test Item Value Reference Range Interpretation Comments UA Ketones (test code = UA Negative mg/dL Ketones) [facility] AND [id number] 20:23:00 Test Item Value Reference Range Interpretation Comments UA Bili (test code = Negative *NA*(05/07/21 UA Bili) 2:23 PM) [facility] AND [id number] 20:23:00 Test Item Value Reference Range Interpretation Comments UA Blood (test code = Small *ABN*(05/07/21 UA Blood) 2:23 PM) [facility] AND [id number] 20:23:00 Test Item Value Reference Range Interpretation Comments UA Nitrite (test code Negative (05/07/21 2:23 = UA Nitrite) PM) [facility] AND [id number] 20:23:00 Test Item Value Reference Range Interpretation Comments UA Leuk Est (test code Trace *ABN*(05/07/21 2:23 = UA Leuk Est) PM) [facility] AND [id number] 20:23:00 Test Item Value Reference Range Interpretation Comments UA WBC (test code = 6 See_Comment [Automa kalie message] The UA WBC) system which ge nerated this result transmit kalie reference range : <=5. The reference range was not used to interpr et this result as sylvester l/abnormal. [facility] AND [id number] 20:23:00 Test Item Value Reference Range Interpretation Comments UA RBC (test code = no gt See_Comment [Automa kalie message] The UA RBC) system which ge nerated this result transmit kalie reference range : <=2. The reference range was not used to interpr et this result as sylvester l/abnormal. [facility] AND [id number] 20:23:00 Test Item Value Reference Range Interpretation Comments UA Hyal Cast (test 1 See_Comment [Automat ed message] The code = UA Hyal Cast) system which generated this result transmit kalie reference range : <=2. The reference range was not used to interpr et this result as sylvester l/abnormal. [facility] AND [id number] 20:23:00 Test Item Value Reference Range Interpretation Comments UA Sq Epi (test code = UA Sq Epi) None Seen [facility] AND [id number] 20:23:00 Test Item Value Reference Range Interpretation Comments UA Color (test code = UA Color) STRAW [facility] AND [id number] 20:23:00 Test Item Value Reference Range Interpretation Comments UA Urobilinogen (test code = UA <=1.0 mg/dL 0.1-1.0 Urobilinogen) [facility] [id number] 18:18:00 Test Item Value Reference Range Interpretation Comments PT (test code = PT) 14.1 s 12.0-14.7 [facility] CenterQxdcisrMQGVQUSPCK8896-28-98 18:18:00 Test Item Value Reference Range Interpretation Comments INR (test code = INR) 1.10 1 0.85-1.17 [facility] CenterHitoxcnFNKHCMLUZJ2641-58-61 18:18:00 Test Item Value Reference Range Interpretation Comments PTT (test code = PTT) 22.9 s 22.9-35.8 [facility]PafwvxdTVBENHHGYW8291-57-47 18:18:00 Test Item Value Reference Range Interpretation Comments Coronavirus (COVID-19) Not Detected (05/07/21 DIMAS (test code = 12:18 PM) Coronavirus (COVID-19) DIMAS) [facility] CenterYqegrcgCBAUUIHPWE9218-17-71 18:18:00 Test Item Value Reference Range Interpretation Comments PT (test code = PT) 14.1 s 12.0-14.7 [facility] CenterWhjrapkEUXKHNRPVH7840-14-79 18:18:00 Test Item Value Reference Range Interpretation Comments INR (test code = INR) 1.10 1 0.85-1.17 [facility] CenterPhdjozzIZUXBBVKKZ4881-43-57 18:18:00 Test Item Value Reference Range Interpretation Comments PTT (test code = PTT) 22.9 s 22.9-35.8 [facility]WE[facility] 18:18:00 Test Item Value Reference Range Interpretation Comments Coronavirus (COVID-19) Not Detected (05/07/21 DIMAS (test code = 12:18 PM) Coronavirus (COVID-19) DIMAS) [facility] [id number] 18:18:00 Test Item Value Reference Range Interpretation Comments PT (test code = PT) 14.1 s 12.0-14.7 [facility] CenterShpcaspMIQSPGURTB3459-93-96 18:18:00 Test Item Value Reference Range Interpretation Comments INR (test code = INR) 1.10 1 0.85-1.17 [facility] CenterUkpjmznLTGAZVVVWR4572-24-61 18:18:00 Test Item Value Reference Range Interpretation Comments PTT (test code = PTT) 22.9 s 22.9-35.8 [facility] BrookNqfubbbVINUROTHFD7402-03-08 18:18:00 Test Item Value Reference Range Interpretation Comments Coronavirus (COVID-19) Not Detected (05/07/21 DIMAS (test code = 12:18 PM) Coronavirus (COVID-19) DIMAS) [facility] [id number] 18:09:00 Test Item Value Reference Range Interpretation Comments Total CK (test code = Total CK) 143 12-191 [facility] [id number] 18:09:00 Test Item Value Reference Range Interpretation Comments HS Troponin I (test code = HS Troponin 22.6 I) [place] 371732-01-01 18:09:00 Test Item Value Reference Range Interpretation Comments Glucose Lvl (test code = Glucose Lvl) 97 70-99 [place] 371732-01-01 18:09:00 Test Item Value Reference Range Interpretation Comments BUN (test code = BUN) 12 7-22 [place] 371732-01-01 18:09:00 Test Item Value Reference Range Interpretation Comments Creatinine Lvl (test code = Creatinine 0.91 0.50-1.40 Lvl) [place] 371732-01-01 18:09:00 Test Item Value Reference Range Interpretation Comments Sodium Lvl (test code = Sodium Lvl) 139 135-145 [place] 371732-01-01 18:09:00 Test Item Value Reference Range Interpretation Comments Potassium Lvl (test code = Potassium 4.2 3.5-5.1 Lvl) [place] 371732-01-01 18:09:00 Test Item Value Reference Range Interpretation Comments Chloride Lvl (test code = Chloride Lvl) 111 95-109 [place] 371732-01-01 18:09:00 Test Item Value Reference Range Interpretation Comments CO2 (test code = CO2) 22 24-32 [place] 371732-01-01 18:09:00 Test Item Value Reference Range Interpretation Comments Calcium Lvl (test code = Calcium Lvl) 9.3 8.5-10.5 [place] 371732-01-01 18:09:00 Test Item Value Reference Range Interpretation Comments AGAP (test code = AGAP) 10.2 10.0-20.0 [place] 371732-01-01 18:09:00 Test Item Value Reference Range Interpretation Comments eGFR (test code = eGFR) 60 [facility] C[id number] 18:09:00 Test Item Value Reference Range Interpretation Comments WBC (test code = WBC) 4.8 3.7-10.4 [place] 851592-01-01 18:09:00 Test Item Value Reference Range Interpretation Comments RBC (test code = RBC) 4.21 4.20-5.40 [place] 851592-01-01 18:09:00 Test Item Value Reference Range Interpretation Comments Hgb (test code = Hgb) 13.0 12.0-16.0 [place] 851592-01-01 18:09:00 Test Item Value Reference Range Interpretation Comments Hct (test code = Hct) 39.5 36.0-48.0 [place] 851592-01-01 18:09:00 Test Item Value Reference Range Interpretation Comments MCV (test code = MCV) 93.9 80.0-98.0 [place] 851592-01-01 18:09:00 Test Item Value Reference Range Interpretation Comments MCH (test code = MCH) 30.9 pg 27.0-31.0 [place] 851592-01-01 18:09:00 Test Item Value Reference Range Interpretation Comments MCHC (test code = MCHC) 32.9 32.0-36.0 [facility] CenterAjscdpvLZOYLCGSYG9898-20-22 18:09:00 Test Item Value Reference Range Interpretation Comments RDW (test code = RDW) 14.1 11.5-14.5 [facility] CenterGchpbptPZLCOSMMKF7580-91-13 18:09:00 Test Item Value Reference Range Interpretation Comments Platelet (test code = Platelet) 143 133-450 [facility] CenterGsdsvzvXWRJVDCRAE3432-24-52 18:09:00 Test Item Value Reference Range Interpretation Comments MPV (test code = MPV) 8.3 7.4-10.4 [facility] CenterCscltlgLCVGRKMAMN5552-28-24 18:09:00 Test Item Value Reference Range Interpretation Comments RBC Morph (test code = Normal (05/07/21 12:09 RBC Morph) PM) [facility] CenterPmsuqjjIIENHCHLLT7162-80-66 18:09:00 Test Item Value Reference Range Interpretation Comments Plt Morph (test code = Normal (05/07/21 12:09 Plt Morph) PM) [facility] CenterQcodusxAYTLVNHLBI4671-79-39 18:09:00 Test Item Value Reference Range Interpretation Comments Segs (test code = Segs) 73.2 45.0-75.0 [facility] CenterCkshirvPKJMVTBMUM4171-36-04 18:09:00 Test Item Value Reference Range Interpretation Comments Lymphocytes (test code = Lymphocytes) 17.6 20.0-40.0 [facility] CenterKibvrvmQZRYYWJJEU4611-68-61 18:09:00 Test Item Value Reference Range Interpretation Comments Monocytes (test code = Monocytes) 7.0 2.0-12.0 [facility]TfganbtMCDGFUKQIX4926-02-64 18:09:00 Test Item Value Reference Range Interpretation Comments Eosinophils (test code = 1.6 See_Comment [A utomated message] The Eosinophils) system which ge nerated this result tra nsmitted reference range : <=4.0. The reference r fermín was not used to int erpret this result as normal/abnormal . [facility] CenterGgmytnvFKBRCSJOPI3847-25-11 18:09:00 Test Item Value Reference Range Interpretation Comments Basophils (test code = 0.6 See_Comment [Aut omated message] The Basophils) system which ge nerated this result tra nsmitted reference range : <=1.0. The reference r fermín was not used to int erpret this result as normal/abnormal . [facility] CenterYhrczqiTRJMEFJWKC2457-02-41 18:09:00 Test Item Value Reference Range Interpretation Comments Neutrophils # (test code = Neutrophils 3.5 1.5-8.1 #) [facility] CenterHxzjdeyVREYCCDLGT1045-00-98 18:09:00 Test Item Value Reference Range Interpretation Comments Lymphocytes # (test code = Lymphocytes 0.8 1.0-5.5 #) [facility] CenterFzsejakFIXPIHZZYN5382-15-76 18:09:00 Test Item Value Reference Range Interpretation Comments Monocytes # (test code 0.3 See_Comment [Aut omated message] The = Monocytes #) system which generated this result tra nsmitted reference range : <=0.8. The reference r fermín was not used to int erpret this result as normal/abnormal . [facility] CenterQevqskmHRNITIVQTS6592-30-26 18:09:00 Test Item Value Reference Range Interpretation Comments Eosinophils # (test code 0.1 See_Comment [A utomated message] The = Eosinophils #) system whic h generated this result tra nsmitted reference range : <=0.5. The reference r fermín was not used to int erpret this result as normal/abnormal . [facility] DURACFA8770-12-83 18:09:00 Test Item Value Reference Range Interpretation Comments Total CK (test code = Total CK) 143 12-191 [facility] WIBEJHM2889-35-59 18:09:00 Test Item Value Reference Range Interpretation Comments HS Troponin I (test code = HS Troponin 22.6 I) [facility]2022-01-01 18:09:00 Test Item Value Reference Range Interpretation Comments Glucose Lvl (test code = Glucose Lvl) 97 70-99 [place] 371732-01-01 18:09:00 Test Item Value Reference Range Interpretation Comments BUN (test code = BUN) 12 7-22 [place] 371732-01-01 18:09:00 Test Item Value Reference Range Interpretation Comments Creatinine Lvl (test code = Creatinine 0.91 0.50-1.40 Lvl) [place] 371732-01-01 18:09:00 Test Item Value Reference Range Interpretation Comments Sodium Lvl (test code = Sodium Lvl) 139 135-145 [place] 371732-01-01 18:09:00 Test Item Value Reference Range Interpretation Comments Potassium Lvl (test code = Potassium 4.2 3.5-5.1 Lvl) [place] 371732-01-01 18:09:00 Test Item Value Reference Range Interpretation Comments Chloride Lvl (test code = Chloride Lvl) 111 95-109 [place] 371732-01-01 18:09:00 Test Item Value Reference Range Interpretation Comments CO2 (test code = CO2) 22 24-32 [place] 371732-01-01 18:09:00 Test Item Value Reference Range Interpretation Comments Calcium Lvl (test code = Calcium Lvl) 9.3 8.5-10.5 [place] 371732-01-01 18:09:00 Test Item Value Reference Range Interpretation Comments AGAP (test code = AGAP) 10.2 10.0-20.0 [place] 371732-01-01 18:09:00 Test Item Value Reference Range Interpretation Comments eGFR (test code = eGFR) 60 [facility] CenterSqnpfxnKVRSISYQZP5551-75-92 18:09:00 Test Item Value Reference Range Interpretation Comments WBC (test code = WBC) 4.8 3.7-10.4 [place] 851592-01-01 18:09:00 Test Item Value Reference Range Interpretation Comments RBC (test code = RBC) 4.21 4.20-5.40 [place] 851592-01-01 18:09:00 Test Item Value Reference Range Interpretation Comments Hgb (test code = Hgb) 13.0 12.0-16.0 [facility] CenterMwrbeosMGFVZFKEIF1898-10-35 18:09:00 Test Item Value Reference Range Interpretation Comments Hct (test code = Hct) 39.5 36.0-48.0 [facility] CenterHjnnjsdSTOIWRETZP0194-86-73 18:09:00 Test Item Value Reference Range Interpretation Comments MCV (test code = MCV) 93.9 80.0-98.0 [facility] CenterEyeiabcFSUKKHRIFG6574-90-87 18:09:00 Test Item Value Reference Range Interpretation Comments MCH (test code = MCH) 30.9 pg 27.0-31.0 [facility] CenterOwirdpqJVDDYAFQFN5416-70-22 18:09:00 Test Item Value Reference Range Interpretation Comments MCHC (test code = MCHC) 32.9 32.0-36.0 [facility] CenterHcltegcBQWRAYGXUN3930-51-47 18:09:00 Test Item Value Reference Range Interpretation Comments RDW (test code = RDW) 14.1 11.5-14.5 [facility] CenterIibpcsbLSZNUUQQIX9467-40-07 18:09:00 Test Item Value Reference Range Interpretation Comments Platelet (test code = Platelet) 143 133-450 [facility] CenterTqljellYARGDLADOO0199-57-87 18:09:00 Test Item Value Reference Range Interpretation Comments MPV (test code = MPV) 8.3 7.4-10.4 [facility] CenterQjleggwMUBHSBZNDC9689-00-66 18:09:00 Test Item Value Reference Range Interpretation Comments RBC Morph (test code = Normal (05/07/21 12:09 RBC Morph) PM) [facility] CenterCxlwmlhFGBMFRKYKX0535-15-12 18:09:00 Test Item Value Reference Range Interpretation Comments Plt Morph (test code = Normal (05/07/21 12:09 Plt Morph) PM) [facility] CenterXontdvmFFHJBRKTTX2353-90-09 18:09:00 Test Item Value Reference Range Interpretation Comments Segs (test code = Segs) 73.2 45.0-75.0 [place] 851592-01-01 18:09:00 Test Item Value Reference Range Interpretation Comments Lymphocytes (test code = Lymphocytes) 17.6 20.0-40.0 [place] 851592-01-01 18:09:00 Test Item Value Reference Range Interpretation Comments Monocytes (test code = Monocytes) 7.0 2.0-12.0 [facility] CenterNwrhzgsDPWEBEPENM0190-12-33 18:09:00 Test Item Value Reference Range Interpretation Comments Eosinophils (test code = 1.6 See_Comment [A utomated message] The Eosinophils) system which ge nerated this result tra nsmitted reference range : <=4.0. The reference r fermín was not used to int erpret this result as normal/abnormal . [facility]BiraddvSYHHVANLIU1425-16-[facility] 18:09:00 Test Item Value Reference Range Interpretation Comments Basophils (test code = 0.6 See_Comment [Aut omated message] The Basophils) system which ge nerated this result tra nsmitted reference range : <=1.0. The reference r fermín was not used to int erpret this result as normal/abnormal . [facility] TexasAgoaedjIHARNEXDHF4052-68-32 18:09:00 Test Item Value Reference Range Interpretation Comments Neutrophils # (test code = Neutrophils 3.5 1.5-8.1 #) [facility] CenterWfqggkaTIRKKKGRBU9487-78-67 18:09:00 Test Item Value Reference Range Interpretation Comments Lymphocytes # (test code = Lymphocytes 0.8 1.0-5.5 #) [facility] CenterSvmyezfZBTGPGXVMR5975-48-28 18:09:00 Test Item Value Reference Range Interpretation Comments Monocytes # (test code 0.3 See_Comment [Aut omated message] The = Monocytes #) system which generated this result tra nsmitted reference range : <=0.8. The reference r fermín was not used to int erpret this result as normal/abnormal . [facility] TexasPbebdidUAQJEFMOVR5773-92-03 18:09:00 Test Item Value Reference Range Interpretation Comments Eosinophils # (test code 0.1 See_Comment [A utomated message] The = Eosinophils #) system whic h generated this result tra nsmitted reference range : <=0.5. The reference r fermín was not used to int erpret this result as normal/abnormal . [facility] HospitalS[facility] RDFLCZA5076-84-03 18:09:00 Test Item Value Reference Range Interpretation Comments Total CK (test code = Total CK) 143 12-191 [facility] [id number] 18:09:00 Test Item Value Reference Range Interpretation Comments HS Troponin I (test code = HS Troponin 22.6 I) [place] [id number] 18:09:00 Test Item Value Reference Range Interpretation Comments Glucose Lvl (test code = Glucose Lvl) 97 70-99 [place] [id number] 18:09:00 Test Item Value Reference Range Interpretation Comments BUN (test code = BUN) 12 7-22 [place] [id number] 18:09:00 Test Item Value Reference Range Interpretation Comments Creatinine Lvl (test code = Creatinine 0.91 0.50-1.40 Lvl) [place] [id number] 18:09:00 Test Item Value Reference Range Interpretation Comments Sodium Lvl (test code = Sodium Lvl) 139 135-145 [place] [id number] 18:09:00 Test Item Value Reference Range Interpretation Comments Potassium Lvl (test code = Potassium 4.2 3.5-5.1 Lvl) [place] [id number] 18:09:00 Test Item Value Reference Range Interpretation Comments Chloride Lvl (test code = Chloride Lvl) 111 95-109 [facility]2022-01-01 18:09:00 Test Item Value Reference Range Interpretation Comments CO2 (test code = CO2) 22 24-32 [place] [id number] 18:09:00 Test Item Value Reference Range Interpretation Comments Calcium Lvl (test code = Calcium Lvl) 9.3 8.5-10.5 [place] [id number] 18:09:00 Test Item Value Reference Range Interpretation Comments AGAP (test code = AGAP) 10.2 10.0-20.0 [place] [id number] 18:09:00 Test Item Value Reference Range Interpretation Comments eGFR (test code = eGFR) 60 [place] [id number] 18:09:00 Test Item Value Reference Range Interpretation Comments WBC (test code = WBC) 4.8 3.7-10.4 [place] [id number] 18:09:00 Test Item Value Reference Range Interpretation Comments RBC (test code = RBC) 4.21 4.20-5.40 [place] [id number] 18:09:00 Test Item Value Reference Range Interpretation Comments Hgb (test code = Hgb) 13.0 12.0-16.0 [facility]OcalrpvGPVHTGBRVT1672-67-75 18:09:00 Test Item Value Reference Range Interpretation Comments Hct (test code = Hct) 39.5 36.0-48.0 [facility] CenterRgvvpcnAGUSPOMZIS0623-20-38 18:09:00 Test Item Value Reference Range Interpretation Comments MCV (test code = MCV) 93.9 80.0-98.0 [facility] CenterIitbxknOPOGHIAWFE2123-52-94 18:09:00 Test Item Value Reference Range Interpretation Comments MCH (test code = MCH) 30.9 pg 27.0-31.0 [facility] CenterTladprjLJVVRLSFPR7208-19-65 18:09:00 Test Item Value Reference Range Interpretation Comments MCHC (test code = MCHC) 32.9 32.0-36.0 [facility] C[id number] 18:09:00 Test Item Value Reference Range Interpretation Comments RDW (test code = RDW) 14.1 11.5-14.5 [facility] CenterMldswdjMHEZHTZQUS3468-77-09 18:09:00 Test Item Value Reference Range Interpretation Comments Platelet (test code = Platelet) 143 133-450 [facility] CenterAigzmqzTRAWHTKZIL9068-20-95 18:09:00 Test Item Value Reference Range Interpretation Comments MPV (test code = MPV) 8.3 7.4-10.4 [facility] CenterThuwuiwQQLNJTENEJ4255-71-96 18:09:00 Test Item Value Reference Range Interpretation Comments RBC Morph (test code = Normal (05/07/21 12:09 RBC Morph) PM) [facility] CenterFgvyapmNULCBTFKFG5034-99-49 18:09:00 Test Item Value Reference Range Interpretation Comments Plt Morph (test code = Normal (05/07/21 12:09 Plt Morph) PM) [facility] CenterGnofdqcARLAHCEECA0355-29-14 18:09:00 Test Item Value Reference Range Interpretation Comments Segs (test code = Segs) 73.2 45.0-75.0 [facility] CenterHowzcknWYKVWAPIDM6669-48-72 18:09:00 Test Item Value Reference Range Interpretation Comments Lymphocytes (test code = Lymphocytes) 17.6 20.0-40.0 [facility] CenterCxkrnirCBYIWTRUQE2907-94-86 18:09:00 Test Item Value Reference Range Interpretation Comments Monocytes (test code = Monocytes) 7.0 2.0-12.0 [place] [id number] 18:09:00 Test Item Value Reference Range Interpretation Comments Eosinophils (test code = 1.6 See_Comment [A utomated message] The Eosinophils) system which ge nerated this result tra nsmitted reference range : <=4.0. The reference r fermín was not used to int erpret this result as normal/abnormal . [facility] CenterEwkvcplINMUDPARTI8093-61-27 18:09:00 Test Item Value Reference Range Interpretation Comments Basophils (test code = 0.6 See_Comment [Aut omated message] The Basophils) system which ge nerated this result tra nsmitted reference range : <=1.0. The reference r fermín was not used to int erpret this result as normal/abnormal . [facility] CenterXpgruujGXFWISKWJH7533-28-21 18:09:00 Test Item Value Reference Range Interpretation Comments Neutrophils # (test code = Neutrophils 3.5 1.5-8.1 #) [facility] CenterMfyoozvEZCODQCSBA5468-76-04 18:09:00 Test Item Value Reference Range Interpretation Comments Lymphocytes # (test code = Lymphocytes 0.8 1.0-5.5 #) [facility] Cent[id number] 18:09:00 Test Item Value Reference Range Interpretation Comments Monocytes # (test code 0.3 See_Comment [Aut omated message] The = Monocytes #) system which generated this result tra nsmitted reference range : <=0.8. The reference r fermín was not used to int erpret this result as normal/abnormal . [facility] CenterGtzrkarZATXMIOMMO1445-31-93 18:09:00 Test Item Value Reference Range Interpretation Comments Eosinophils # (test code 0.1 See_Comment [A utomated message] The = Eosinophils #) system whic h generated this result tra nsmitted reference range : <=0.5. The reference r fermín was not used to int erpret this result as normal/abnormal . [facility] DanielMM, DIGITAL, MAMMO, SCREENING, BILATERAL INCLUDING [id number] 16:10:00Diagnostic workup per radiologist?->YesReason for Exam:->screen #[id number] - MM, DIGITAL, MAMMO, SCREENING, BILATERAL INCLUDING CADBILATERAL DIGITAL SCREENING MAMMOGRAM WITH CAD: 01/16/2019Comparison is made to exams dated: 08/27/2017 mammogram and 07/10/2016 mammogram - [facility]. The tissue of both breasts is [...] BI-RADS: 2 Benign G0202 RAD, BONE DENSITY [id number] 14:21:00 Reason for Exam:->osteoporosisFINAL REPORT Bone Mineral Density Date: August 27, 2017 Comparison: No comparison Clinical History: Osteoporosis Screening Report: Bone Mineral Density Measurement: Lumbar Spine: 1.227 gm/oz8Ecyh Femoral Neck: 0.773 gm/cm2 Standard Deviation as [...] MDReport Verified Date/Time: 08/27/2017 14:21:55 Reading Location: [address] Radiology Reading Room MM, DIGITAL, MAMMO, SCREENING, BILATERAL INCLUDING [id number] 13:55:00Reason for Exam:- >screening for breast cancerN#: [id number] - MM, DIGITAL, MAMMO, SCREENING, BILATERAL INCLUDING CADBILATERAL DIGITAL SCREENING MAMMOGRAM WITH CAD: 08/27/2017CLINICAL: Routine screening mammogram. Comparison is made to exams dated: 07/10/2016 mammogram - [facility], 04/12/2015 mammogram, 02/18/2014 mammogram, and 12/29/2008 [...]
--- NOTE | 2022-07-19 15:49 | RAD REPORT ---
EXAM DESCRIPTION: CT - Ct Stroke Brain Wo Cont - 07/19/2022 3:44 pm CLINICAL HISTORY: STROKE ALERT Headache, drowsiness COMPARISON: Gastric Emptying Study dated 06/20/2022; Chest Abdomen Pelvis W Cont dated 06/15/2022 TECHNIQUE: All CT scans are performed using dose optimization technique as appropriate and may inclu de automated exposure control or mA/KV adjustment according to patient size. FINDINGS: No intracranial hemorrhage, hydrocephalus or extra-axial fluid collection.Moderate chronic periventricular and deep white matter microvascular ischemic changes are present.15 mm area of dimin ished density is seen adjacent to the right caudate head. The paranasal sinuses and mastoids are clear. The calvarium is intact. IMPRESSION: 15 mm area of diminished density adjacent to the right caudate head may be related to is chemia, possibly subacute. MRI of the brain would be recommended for further evaluation.
--- NOTE | 2022-07-19 16:00 | RAD REPORT ---
EXAM DESCRIPTION: RAD - Chest Single View - 07/19/2022 3:55 pm CLINICAL HISTORY: slurred speech Chest pain. COMPARISON: Chest Single View dated 06/15/2022; Chest Pa And Lat (2 Views) dated 06/08/2022 FINDINGS: Portable technique limits examination quality. The lungs are underinflated but grossly clear. The heart is normal in size. Moderate hiatal hernia.
[2022-07-19 16:30] LABS: Absolute Lymphocytes (CBC) 1.2 K/uL (0.7-4.9); Hematocrit 36.1 % (36.0-45.0); Lymphocytes % 23.1 % (15.3-44.8); MCV 97.1 fL (80-100); MPV 9.7 fL (7.6-11.3); RBC Red Blood Cell Count 3.72 M/uL (3.86-4.86)
[2022-07-19 16:32] LABS: Protime INR 1.75
[2022-07-19 16:44] LABS: Potassium 4.2 mmol/L (3.5-5.1); Troponin High Sensitivity 8.2 pg/mL (<58.9)
--- NOTE | 2022-07-19 16:57 | EDPHYS ---
Physician Documentation [facility] Name: Yuly Villegas Age: 82 yrs Sex: Female : 1940 Arrival Date: 07/19/2022 Time: 15:29 Bed 16 Private MD: ED Physician Antonio Banks Historical: - Allergies: 07/19 16:27 Codeine; db 16:27 Ibuprofen; db - PMHx: 16:27 Atrial fibrillation; Cerebrovascular accident; depressive disorder; DYSPHAGIA; gastric db ulcer; Hyperlipidemia; Gastroesophageal reflux disease; Hypertensive disorder; Hypothyroidism; stroke; - Immunization history:: Adult Immunizations unknown. - Social history:: Smoking status: Patient denies any tobacco usage or history of. Vital Signs: 15:28 BP 136 / 76; Pulse 67; Resp 20; Temp 98.2; Pulse Ox 97% on R/A; Weight 72.57 kg (M); db 15:43 BP 142 / 68; Pulse 65; Resp 18; Pulse Ox 100% on R/A; db NIH Stroke Scale Scores: 16:00 NIHSS Score: 8 db 16:33 NIHSS Score: 8 db MDM: 16:56 Patient medically screened. kdr 07/19 15:33 Order name: Accucheck kdr 07/19 15:33 Order name: EKG; Complete Time: 15:33 kdr 07/19 15:33 Order name: NPO; Complete Time: 15:49 kdr 07/19 15:33 Order name: O2 Per Protocol; Complete Time: 15:49 kdr 07/19 15:33 Order name: O2 Sat Monitoring; Complete Time: 15:49 kdr 07/19 15:33 Order name: Cardiac monitoring; Complete Time: 15:50 kdr 07/19 15:33 Order name: Protime (+inr); Complete Time: 16:35 kdr 07/19 15:33 Order name: Ptt, Activated; Complete Time: 16:35 kdr 07/19 15:33 Order name: CT Stroke Brain w/o Contrast; Complete Time: 16:35 kdr 07/19 15:33 Order name: Stroke CXR 1 View; Complete Time: 16:35 kdr 07/19 15:33 Order name: IV Saline Lock; Complete Time: 16:38 kdr 07/19 15:33 Order name: Labs collected and sent; Complete Time: 16:38 kdr 07/19 15:33 Order name: CBC with Diff; Complete Time: 16:42 kdr 07/19 16:43 Order name: MRI Stroke Protocol kdr 07/19 15:33 Order name: Basic Metabolic Panel kdr 07/19 15:33 Order name: High Sensitivity Troponin kdr 07/19 15:33 Order name: EKG - Nurse/Tech; Complete Time: 16:48 kdr 07/19 15:33 Order name: Stroke Swallow Screen; Complete Time: 16:48 kdr Administered Medications: No medications were administered Disposition Summary: 07/19/22 16:56 Transfer Ordered Accepting Physician: Mitchell/neuro kdr Transfer Location: [facility] kdr Reason: Higher level of care kdr Condition: Fair kdr Problem: new kdr Symptoms: have improved kdr Diagnosis - Slurred speech kdr Forms: - Medication Reconciliation Form kdr - SBAR form kdr NIH Stroke Scale - NIH Stroke Score Date: 07/19/2022 Time: 16:00 Total Score = 8 10. Dysarthria (speech clarity - read or repeat words) - 1(Mild to Moderate) 11. Extinction and Inattention (visual/tactile/auditory/spatial/personal) - 0(No abnormality) 1a. Level of Consciousness (LOC) - 0(Alert) 1b. Level of Consciousness (LOC) (Month \T\ Age) - 0(Both) 1c. LOC Commands (Open \T\ Closes Eyes/Manager Speech) - 0(Both) 2. Best Gaze (Lateral Gaze Paresis) - 0(Normal) 3. Visual Field Loss - 0(No visual loss) 4. Facial Palsy - 3(Complete paralysis) 5a. Left Arm: Motor (10-second hold) - 0(No drift) 5b. Right Arm: Motor (10-second hold) - 0(No drift) 6a. Left Leg: Motor (5-second hold - always test supine) - 1(Drift) 6b. Right Leg: Motor (5-second hold - always test supine) - 0(No drift) 7. Limb Ataxia (finger/nose \T\ heel/samson - test with eyes open) - 1(Present in one limb) 8. Sensory Loss (pinprick arms/legs/face) - 0(Normal) 9. Best Language: Aphasia (description/naming/reading) - 2(Severe aphasia) Initials: db NIH Stroke Scale - NIH Stroke Score Date: 07/19/2022 Time: 16:33 Total Score = 8 10. Dysarthria (speech clarity - read or repeat words) - 1(Mild to Moderate) 11. Extinction and Inattention (visual/tactile/auditory/spatial/personal) - 0(No abnormality) 1a. Level of Consciousness (LOC) - 0(Alert) 1b. Level of Consciousness (LOC) (Month \T\ Age) - 0(Both) 1c. LOC Commands (Open \T\ Closes Eyes/Manager Speech) - 0(Both) 2. Best Gaze (Lateral Gaze Paresis) - 0(Normal) 3. Visual Field Loss - 0(No visual loss) 4. Facial Palsy - 3(Complete paralysis) 5a. Left Arm: Motor (10-second hold) - 0(No drift) 5b. Right Arm: Motor (10-second hold) - 0(No drift) 6a. Left Leg: Motor (5-second hold - always test supine) - 1(Drift) 6b. Right Leg: Motor (5-second hold - always test supine) - 0(No drift) 7. Limb Ataxia (finger/nose \T\ heel/samson - test with eyes open) - 1(Present in one limb) 8. Sensory Loss (pinprick arms/legs/face) - 0(Normal) 9. Best Language: Aphasia (description/naming/reading) - 2(Severe aphasia) Initials: db Signatures: Dispatcher [employer] Antonio Torres MD MD kdr Benton, Danielle, RN RN Nafisa Hammonds PA-C PA-C sb4
--- NOTE | 2022-07-19 16:57 | ER ---
Nurse's Notes [facility] Name: Yuly Villegas Age: 82 yrs Sex: Female : 1940 Arrival Date: 07/19/2022 Time: 15:29 Bed 16 Private MD: Diagnosis: Slurred speech Presentation: 07/19 15:28 Chief complaint: EMS states: CODE STROKE last known normal at 1430. patient started db with slurred speech during physical therapy. Coronavirus screen: Vaccine status: Patient reports receiving the 2nd dose of the covid vaccine. Client denies travel out of the [place] in the last 14 days. At this time, the client does not indicate any symptoms associated with coronavirus-19. Ebola Screen: Patient negative for fever greater than or equal to 101.5 degrees Fahrenheit, and additional compatible Ebola Virus Disease symptoms Patient denies exposure to infectious person. Patient denies travel to an Ebola-affected area in the 21 days before illness onset. No symptoms or risks identified at this time. An acute neurological deficit is present. The charge nurse has been notified. The patient has been moved to a treatment area. The patients blood glucose was checked before arriving to the hospital and was found to be normal. Initial Sepsis Screen: Does the patient meet any 2 criteria? No. Patient's initial sepsis screen is negative. Does the patient have a suspected source of infection? No. Patient's initial sepsis screen is negative. Risk Assessment: Do you want to hurt yourself or someone else? Patient reports no desire to harm self or others. Onset of symptoms was July 19, 2022 at 14:30. 15:28 Method Of Arrival: EMS: [facility] db 15:28 Acuity: LEOPOLDO 2 db Stroke Activation: Symptom onset < 3 hours Physician: Stroke Attending; Name: Darren; Notified At: 15:28; Arrived At: 15:45 Physician: Chief Stroke Resident; Name: ; Notified At: 15:28; Arrived At: Physician: Stroke Resident; Name: ; Notified At: 15:28; Arrived At: Physician: ED Attending; Name: ; Notified At: 15:28; Arrived At: Physician: ED Resident; Name: ; Notified At: 15:28; Arrived At: Historical: - Allergies: 16:27 Codeine; db 16:27 Ibuprofen; db - PMHx: 16:27 Atrial fibrillation; Cerebrovascular accident; depressive disorder; DYSPHAGIA; gastric db ulcer; Hyperlipidemia; Gastroesophageal reflux disease; Hypertensive disorder; Hypothyroidism; stroke; - Immunization history:: Adult Immunizations unknown. - Social history:: Smoking status: Patient denies any tobacco usage or history of. Screenin:00 [facility] ED Fall Risk Assessment (Adult) History of falling in the last 3 months, db including since admission Yes- physiologic fall (2 pts) Confusion or Disorientation No (0 pts) Intoxicated or Sedated No (0 pts) Impaired Gait Yes (1 pt) Mobility Assist Device Used Yes (1 pt) Altered Elimination No (0 pt) Score/Fall Risk Level 3 or more points = High Risk Oriented to surroundings, Maintained a safe environment, Educated pt \T\ family on fall prevention, incl call for assistance when getting out of bed. Abuse screen: Denies threats or abuse. Denies injuries from another. Nutritional screening: No deficits noted. Tuberculosis screening: No symptoms or risk factors identified. Assessment: 16:00 [place] Swallow Protocol Brief Cognitive Screen What is your name? Normal, Where are you db right now? Normal, What year is it? Normal. 3 oz Water Swallow Challenge: Pt able to drink all water without stopping, coughing, choking or throat clearing: No Result: FAIL MD Notified: Antonio Banks MD. 16:33 VAN Scoring: Arm Drift: Patients demonstrates NO arm weakness. Patient is VAN Negative. db Visual Disturbance: No visual disturbance noted. Aphasia: No aphasia noted. Neglect: No neglect noted. Pain: Denies pain. Neuro: Level of Consciousness is awake, alert, obeys commands, Oriented to person, place, time, situation, Moves all extremities. Speech is slurred, Facial droop on left, Pupils are PERRLA. Vital Signs: 15:28 BP 136 / 76; Pulse 67; Resp 20; Temp 98.2; Pulse Ox 97% on R/A; Weight 72.57 kg (M); db 15:43 BP 142 / 68; Pulse 65; Resp 18; Pulse Ox 100% on R/A; db NIH Stroke Scale Scores: 16:00 NIHSS Score: 8 db 16:33 NIHSS Score: 8 db ED Course: 15:28 Arm band placed on Patient placed in an exam room. db 15:29 Patient arrived in ED. kc6 15:31 Antonio Banks MD is Attending Physician. kdr 15:45 Missed attempt(s): 22 gauge in right antecubital area. by another tech. db 15:46 CT Stroke Brain w/o Contrast In Process Unspecified. EDMS 15:55 Missed attempt(s): 22 gauge in right wrist. db 15:57 Stroke CXR 1 View In Process Unspecified. EDMS 16:00 Missed attempt(s): 22 gauge in left wrist. db 16:18 Inserted saline lock: 22 gauge in right wrist, using aseptic technique. ,using aseptic db technique. by TIFFANY Henderson Blood collected. 16:24 Amrita Abdul RN is Primary Nurse. db 16:27 Triage completed. db 16:31 No provider procedures requiring assistance completed. db 16:35 Inserted saline lock: 22 gauge in left forearm, using aseptic technique. db 16:48 Patient has correct armband on for positive identification. Bed in low position. Call db light in reach. Side rails up X2. Client placed on continuous cardiac and pulse oximetry monitoring. NIBP monitoring applied. Warm blanket given. Administered Medications: No medications were administered Outcome: 16:56 ER care complete, transfer ordered by . [facility] NIH Stroke Scale - NIH Stroke Score Date: 07/19/2022 Time: 16:00 Total Score = 8 10. Dysarthria (speech clarity - read or repeat words) - 1(Mild to Moderate) 11. Extinction and Inattention (visual/tactile/auditory/spatial/personal) - 0(No abnormality) 1a. Level of Consciousness (LOC) - 0(Alert) 1b. Level of Consciousness (LOC) (Month \T\ Age) - 0(Both) 1c. LOC Commands (Open \T\ Closes Eyes/Cellar Worker) - 0(Both) 2. Best Gaze (Lateral Gaze Paresis) - 0(Normal) 3. Visual Field Loss - 0(No visual loss) 4. Facial Palsy - 3(Complete paralysis) 5a. Left Arm: Motor (10-second hold) - 0(No drift) 5b. Right Arm: Motor (10-second hold) - 0(No drift) 6a. Left Leg: Motor (5-second hold - always test supine) - 1(Drift) 6b. Right Leg: Motor (5-second hold - always test supine) - 0(No drift) 7. Limb Ataxia (finger/nose \T\ heel/samson - test with eyes open) - 1(Present in one limb) 8. Sensory Loss (pinprick arms/legs/face) - 0(Normal) 9. Best Language: Aphasia (description/naming/reading) - 2(Severe aphasia) Initials: db NIH Stroke Scale - NIH Stroke Score Date: 07/19/2022 Time: 16:33 Total Score = 8 10. Dysarthria (speech clarity - read or repeat words) - 1(Mild to Moderate) 11. Extinction and Inattention (visual/tactile/auditory/spatial/personal) - 0(No abnormality) 1a. Level of Consciousness (LOC) - 0(Alert) 1b. Level of Consciousness (LOC) (Month \T\ Age) - 0(Both) 1c. LOC Commands (Open \T\ Closes Eyes/Cellar Worker) - 0(Both) 2. Best Gaze (Lateral Gaze Paresis) - 0(Normal) 3. Visual Field Loss - 0(No visual loss) 4. Facial Palsy - 3(Complete paralysis) 5a. Left Arm: Motor (10-second hold) - 0(No drift) 5b. Right Arm: Motor (10-second hold) - 0(No drift) 6a. Left Leg: Motor (5-second hold - always test supine) - 1(Drift) 6b. Right Leg: Motor (5-second hold - always test supine) - 0(No drift) 7. Limb Ataxia (finger/nose \T\ heel/samson - test with eyes open) - 1(Present in one limb) 8. Sensory Loss (pinprick arms/legs/face) - 0(Normal) 9. Best Language: Aphasia (description/naming/reading) - 2(Severe aphasia) Initials: db Signatures: Dispatcher [employer] EDAntonio Davila MD MD kdr Campbell, Kaitlyn, RN RN kc6 Amrita Abdul RN RN db
--- NOTE | 2022-07-19 17:28 | RAD REPORT ---
EXAM DESCRIPTION: CT - Head angio - 07/19/2022 5:22 pm CLINICAL HISTORY: SLURRED SPEECH Headache, drowsiness, CVA symptomology COMPARISON: Ct Stroke Brain Wo Cont dated 07/19/2022 TECHNIQUE: CT angiography of the head was performed with MIPs. All CT scans are performed using dose optimization technique as appropriate and may include automated exposure control or mA/KV adjustment according to patient size. FINDINGS: No evidence of large vessel occlusion. No evidence of aneurysm is detected. No flow-limiti ng stenosis or vascular malformation identified. origin of bilateral posterior communicating ar teries, normal variant. Antegrade flow is seen in the vertebral arteries. The vertebral arteries are codominant. The visualized dural venous sinuses are patent. IMPRESSION: No significant flow abnormality is detected.
--- NOTE | 2022-07-19 17:57 | RAD REPORT ---
EXAM DESCRIPTION: MRI - Brain Wo Cont - 07/19/2022 5:48 pm CLINICAL HISTORY: SLURRED SPEECH Headache, drowsiness, CVA symptomology COMPARISON: Head angio dated 07/19/2022 TECHNIQUE: Multi-sequence, multiplanar MR imaging of the brain was performed without contrast. FINDINGS: No intracranial hemorrhage, hydrocephalus or extra-axial fluid collections.Moderate conflu ent T2/FLAIR hyperintensity in the periventricular and deep white matter is present compatible with c hronic microvascular ischemic changes. No edema or shift of midline structures. No findings to suspec t brain mass. DWI is negative for acute CVA. Midline structures are normally formed. Mastoid air cells and paranasal sinuses are clear. IMPRESSION: Negative for acute CVA or other acute intracranial abnormality.
[2022-07-19 19:02] LABS: SARS-CoV-2 Antigen Rapid Res Negative (Negative)
[2022-07-20 04:21] VITALS: TEMP 98.2
[2022-07-20 04:26] VITALS: BP 130/57; O2SAT 100
--- NOTE | 2022-07-20 12:36 | EKG ---
Test Date: 2022-07-19 Test Time: 15:56:10 Telegraphic Typewriter Installer: KATHY MEASUREMENT RESULTS: Intervals: Rate: 66 OH: 202 QRSD: 70 QT: 442 QTc: 463 Malone: P: 95 OH: 202 QRS: 30 T: 65 INTERPRETIVE STATEMENTS: Normal sinus rhythm Low voltage QRS Cannot rule out Anterior infarct, age undetermined Abnormal ECG Compared to ECG 06/15/2022 19:07:50 Low QRS voltage now present Myocardial infarct finding still present Electronically Signed On 07-20-22 12:35:03 CDT by Curly Mcdonald
== END 2022-07-19 20:55 | disposition short-term general hospital (02) ==
LOC: ER 15:18
DX: R47.81 Slurred speech (principal); R29.810 Facial weakness; R29.708 NIHSS score 8; I10 Essential (primary) hypertension; I48.91 Unspecified atrial fibrillation; Z20.822 Contact with and (suspected) exposure to COVID-19; Z86.73 Personal history of transient ischemic attack (TIA), and cerebral infarction without residual deficits; Z88.5 Allergy status to narcotic agent; Z88.6 Allergy status to analgesic agent
CPT/HCPCS: 85025; 80048; 36415; 85610; 85730; 84484; 70496; 70450; 71045; 70551; 87811; Q9967; 93005

== ENCOUNTER 2023-02-11 03:35 | Emergency (ER) | payer OTHER, BC ==
--- OUTSIDE RECORDS SUMMARY | 2023-02-11 03:37 | XMS REPORT | Clinical Summary ---
:1940 Author Organization [facility] MD [facility] Address [address] [place] [id number] Care Team Providers Name Role Phone Unavailable [...] Last Done Comments COVID-19 Vaccination (3 - Pfizer series) 08/29/2020 021, 06/13/2020 Results Not on fileafter 02/11/2022 Insurance Payer Benefit Plan / Subscriber ID Effective Dates Phone Addre ss Type Group MEDICARE MEDICARE PART [id number] 2004-Desmond [phone] TIARA Medicare A AND B t 2 SOLUTIONS [address] [place] [id number]
--- OUTSIDE RECORDS SUMMARY | 2023-02-11 03:51 | XMS REPORT | Continuity of Care Document ---
:1940 Author Organization [facility] t Address [address] [facility] [place]. [address] [place] [address] Care Team Providers Name Role Phone CARSON RUDOLPH Primary Care Physician Unavailable [id number] Attending Clinician Unavailable Bert Hall Attending Clinician Unavailable Noa Segura Attending Clinician Unavailable DILSHAD GILMAN Attending Clinician Unavailable Aisha Rosa MD Attending Clinician Maddy Rain MD Attending Clinician Dilshad Gilman MD Attending Clinician Amira Javier Attending Clinician AISHA ROSA Attending Clinician Unavailable Maximino rCuz Attending Clinician MAXIMINO CRUZ Attending Clinician Unavailable Micki Manjarrez Attending Clinician MICKI MANJARREZ Attending Clinician Unavailable Brandon Hampton Attending Clinician Paco Tuttle Attending Clinician PACO TUTTLE Attending Clinician Unavailable Jennyfer Feliciano Attending Clinician JENNYFER FELICIANO Attending Clinician Unavailable Carson Rudolph MD Attending Clinician QUAN CABRERA Attending Clinician Unavailable Quan Cabrera Attending Clinician Ruthann Coronado Attending Clinician RUTHANN CORONADO Attending Clinician Unavailable CARSON RUDOLPH Attending Clinician Unavailable Carson Rudolph Attending Clinician [id number] Admitting Clinician Unavailable AMIRA JAVIER Admitting Clinician Unavailable Maximino Cruz Admitting Clinician MAXIMINO CRUZ Admitting Clinician Unavailable Brandon Hampton Admitting Clinician BRANDON HAMPTON Admitting Clinician Unavailable TOMAS RIZVI Admitting Clinician Unavailable Tomas Rizvi Admitting Clinician Payers Payer Name Policy Type Policy Number Effective Date Expiration Date S sandor MEDICARE PART A [id number] 2004 2024 AND B 00:00:00 00:00:00 MCR MCR [id number] BCTI BCTI [id number] MEDICARE A B [id number] 2004 00:00:00 BCBS OS [id number] POS/PPO/EPO 00:00:00 BCBS 6 [id number] 2021 2022 Pulse 00:00:00 00:00:00 Problems Condition Condition Condition Status Onset Resolution Last Treating Co mments Source Name Details Category Date Date Treatment Clinician Date CVA CVA Disease Recurre [facility] (cerebral (cerebral nce 3-15 [facility] vascular vascular 00:00: Medica l accident) accident) 00 Cent er SUBACUTE SUBACUTE Diagnosis Active 2021-052022-02-17 Memoria STROKE STROKE 0- 21:55:00 l Active 00:00: Daniel 02/12/2022 00 [facility] [place] CVA CVA Diagnosis Active 2021-052022-03-15 Mem oria Active 0 21:55:00 l 02/12/2022 00:00: Quentin jack 00 [facility] STROKE STROKE Diagnosis Active 2021-052022-02-22 Me moria LIKE LIKE 0 21:52:00 l SYMPTOMS SYMPTOMS 00:00: Quentin jack Active 00 02/11/2022 [facility] FALL FALL Diagnosis Active 2021-052022-02-13 Mem oria Active 0 13:04:00 l 02/08/2022 00:00: Quentin jack 00 [facility] ACUTE CVA ACUTE CVA Diagnosis Active 2021-05-07 Memoria Active 05-07 21:58:00 l 05/07/2021 00:00: Quentin jack 00 [facility] ACUTE ACUTE Diagnosis Active 2021-05-18 Mem oria CEREBROVAS CEREBROVAS 05-07 21:46:00 l CULAR CULAR 00:00: [place] ACCIDENT ACCIDENT 00 Active 05/07/2021 [facility] DIZZINESS, DIZZINESS Diagnosis Active 2021-06-20 Memkelly VOMITING , VOMITING 05-07 13:44:00 l Active 00:00: Daniel 05/07/[address] [place] [address] CKD CKD Disease Active [facility] (chronic (chronic 3-12 [facility] kidney kidney 00:00: Medical disease) disease) 00 Center stage 3, stage 3, GFR 30-59 GFR 30-59 ml/min ml/min Lumbar Lumbar Disease Active Overview: [facility] radiculopa radiculopa 3-12 [facility] thy thy 00:00: g of this Medical 00 note Center might be different from the original. [facility] due to care for , making her home bound. Paroxysmal Paroxysmal Disease Recurre Overvie w: [facility] atrial atrial nce 12-02 [facility] fibrillati fibrillati 00:00: g of this Medical on on note Center might be different from the original. followed by Dr. Connell, on Diltiazem , i questione d no anticoacu lation. Had holter for a week. Discussed stroke risk. Recommend ed Eliquis, over 60 Kg, creat less than 1.5Dr. Schnee stopped and Chip placed. Echo done. No results known. Impaired Impaired Disease Active [facility] glucose glucose 12-02 [facility] tolerance tolerance 00:00: Medi elena 00 Center Retinal Retinal Disease Active Overview: [facility] hole hole 11-29 [facility] 00:00: g of this Medical 00 note Center might be different from the original. Jaquan Schulte, dry eyes, cataracts done, retinal hole, she does not know which one. Vision decent. Regular visits. Dry eyes Mixed Mixed Disease Active Overview: [facility] hyperlipid hyperlipid 11-29 [facility] emia emia 00:00: g of this Medical 00 note Center might be different from the original. Crestor by Dr. Connell LDL 111 down to 47 Retinal Retinal Disease Active Overview: [facility] hole hole 11-29 [facility] 00:00: g of this Medical 00 note Center might be different from the original. Jaquan Schulte, dry eyes, cataracts done, retinal hole, she does not know which one. Vision decent. Regular visits. Dry eyes SVT SVT Disease Recurre Overview: [facility] t (supravent (supravent nce 08-27 [facility] ricular ricular 00:00: g of this Medic al tachycardi tachycardi 00 note Ce nter a) a) might be different from the original. Per Dr. Connell, after fall. 12/2016-- did PT 2 months. On Diltiazem [address] Urias recent sx. Unsteady Unsteady Disease Active Overview: [facility] gait gait 4-23 [facility] 00:00: g of this Medical 00 note Center might be different from the original. Encourage d walking every day. Walks 2-3 days a week. Not outside. FREQUENT FREQUENT Diagnosis Active 2016-052017-04-18 Memoria [place] FALL[place] -08 12:17:00 l UNSTEADY UNSTEADY 11:52: Quentin jack GAIT, GAIT, 00 R.29.6 R.29.6 Active 03/14/2017 [facility] FREQUENT FREQUENT Diagnosis Active 2017-02-09 Memoria [place] 9-11 15:30:00 l UNSTEADY UNSTEADY 08:00: Quentin jack GAIT, GAIT, 00 R29.6, R26 R29.6, R26 Active 01/15/2017 [facility] FREQUENT FREQUENT Diagnosis Active 2017-02-09 Memoria FALLS, FALLS, -17 16:25:00 l GAIT GAIT 08:00: Daniel INSTABILIT INSTABILIT 00 Y Y Active 12/21/2016 [facility] Migraine Migraine Disease Active Overview: [facility] [...] original. Wraps, pump, sclerothe rapyDr. Sammy Sinclair 2016 improved, still lymphedem aDr. Reynold Landers, at Slow Slow Disease Active Overview: [facility] transit transit 2-23 [facility] constipati constipati 00:00: g of this Medical on on 00 note Center might be different from the original. Controlle d with diet. Moderate Moderate Disease Active Overview: [facility] persistent persistent 8- [facility] asthma asthma 00:00: g of this Medical without without 00 note Center complicati complicati might be on on different from the original. Dr. Oneill 05/2017 "best ever PFTs", last ER Visit 2002, Advair,BI D usually. Combivent -PRN-Stab le jun, 07/2019 rescue PRN. Family history: Mother Cole davis, brother, sister with pulmonary fibrosis. Maternal AuntMater nal Aunt pulm fibrosis. Patient with no signs. Family Family Disease Active Overview: [facility] history of history of 8- [facility] breast breast 00:00: g of this Medical cancer in cancer in 00 note Cent er female female might be different from the original. Great Aunt age 45 Maternal- -no Paternal history Family Family Disease Active Overview: [facility] history of history of 8- [facility] colon colon 00:00: g of [...] home never above 140. 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 Dr. Eric Osteopenia Osteopenia Disease Active Overview : [facility] of hip of hip 9- [facility] 00:00: g of this Medical 00 note Center might be different from the original. 2018Lumba r Spine: 0.4 Mean Femoral Neck: -1.Prev osteoporo sis. Improved. . 2014-2.5 [id number] -1.9 femurStop Prolia. (does not tolerate fosamax)L ast Assessmen t & Plan: Formattin g of this note might be different from the original. 2013-2.5 [id number] -1.9 Femur Depression Depression Disease Active Overview [...] elvira weakness weakness 15:11:10 l (generaliz (generaliz [facility] ed) ed) 08/23/2017 [facility] Other Other Problem 2017-08-23 Memor ia abnormalit abnormalit 15:11:10 l ies of ies of [place] gait and gait and mobility mobility 08/23/2017 [facility] Stiffness Stiffness Problem 2017-08-23 Memoria of of 15:11:10 l unspecifie unspecifie [facility] d joint, d joint, not not elsewhere elsewhere classified classified 8 [facility] Cerebral Cerebral Diagnosis 2022-03-05 Memoria infarction infarction 22:58:38 l (disorder) (disorder) He ann Diagnosis 03/05/2022 [facility] Atrial Atrial Problem Active 2022-03-05 Mem oria fibrillati fibrillati 22:58:38 l on on Daniel (disorder) (disorder) Active Problem 03/05/2022 [facility] [place] Benign Benign Problem Active 2022-03-05 Mario elvira essential essential 22:58:38 l hypertensi hypertensi He [facility] on on (disorder) (disorder) Active Problem 03/05/2022 [facility] Dyslipidem Dyslipide Problem Active 2022-03-05 Memoria ia le 22:58:38 l (disorder) (disorder) He ann Active Problem 03/05/2022 [facility] History of History Problem Active 2022-03-05 Memoria - CVA of - CVA 22:58:38 l (context-d (context-d He rmann ependent ependent category) category) Active Problem 03/05/2022 [facility] Hyperlipid Hyperlipi Problem Active 2022-03-05 Memoria emia demia 22:58:38 l (disorder) (disorder) He rmann Active Problem 03/05/2022 [facility] Hypertensi Hypertens Problem Active 2022-03-05 Memoria ve navi 22:58:38 l disorder, disorder, Herm scotty systemic systemic arterial arterial (disorder) (disorder) Active Problem 03/05/2022 [facility] Left Left Problem Active 2022-03-05 Memor ia hemiparesi hemiparesi 22:58:38 l aleena Sanchez (disorder) (disorder) Active Problem 03/05/2022 [facility] Lymphedema Lymphedem Problem Active 2022-03-05 Memoria (disorder) a 22:58:38 l (disorder) Quentin n Active Problem 03/05/2022 [facility] Obesity Obesity Problem Active 2022-03-05 Me moria (disorder) (disorder) 22:58:38 l Active [place] Problem 03/05/2022 [facility] CEREBRAL CEREBRAL Diagnosis Active 2022-03-15 Memoria INFARCTION INFARCTION 21:55:00 l , Daniel UNSPECIFIE UNSPECIFIE D D Active [facility] Exacerbati Acute Problem Pulse on of exacerbati [...] Details Category Date Date Treatment Clinician Date halfway halfway Problem 2021-052022-02-10 2022-02-10 Memoria (current) (current) 0 23:58:26 23:58:26 l use of use of 18:48: Daniel anticoagul anticoagul 00 ants ants 02/08/2022 02/10/2022 [facility] Paroxysmal Paroxysma Problem 2021-052022-02-10 2022-02-10 Memoria atrial l atrial 0 23:58:26 23:58:26 l fibrillati fibrillati 18:48: He rmann on on 00 02/08/2022 02/10/2022 [facility] Unspecifie Unspecifi Problem 2021-052022-02-10 2022-02-10 Memoria d fall, ed fall, 0 23:58:26 23:58:26 l initial initial 18:47: Daniel encounter encounter 00 02/08/2022 2 [facility] Unspecifie Unspecifi Problem 2021-052022-02-10 2022-02-10 Memoria d injury ed injury 0 23:58:26 23:58:26 l of head, of head, 18:47: Quentin n initial initial 00 encounter encounter 02/08/2022 2 [facility] Repeated Repeated Problem 2017-08-23 2017-08-23 Memoria falls falls - 15:11:10 15:11:10 l 05/23/2017 05:35: Quentin jack 08/23/2017 21 [facility] Allergies, Adverse Reactions, Alerts Allergy Allergy Status Severity Reaction(s) Onset Inactive Treating Comm ents Source Name Type Date Date Clinician Lisinopr Propensi Active cough [facility] ty to 06-03 [facility] adverse 00:00: Medical reaction 00 Center s LISINOPR Allergy Active Med [facility] [place] 06-03 00:00: 00 Ibuprofe Drug Active Other (See Ulcers in [facility] n Allergy Comments) - stomach [facility] 00:00: Medical 00 Center IBUPROFE Allergy Active High Other [facility] N 5-16 00:00: 00 Codeine Drug Active Other (See Feel [facility] Allergy Comments) 3-03 nervous [facility]: Medical Center CODEINE Allergy Active High Other [facility] 07-07 00:00: 00 codeine< codeine< Active Memori a sup>1</s sup>1</s l up> up> Daniel acetamin acetamin Active Moderate Mario elvira ophen-co ophen-co l deine<benjamin deine<benjamin Quentin n p>2</sup p>2</sup > > Family History Family Member Diagnosis Comments Start Date Stop Date Source Natural brother COPD [facility] Natural brother Heart disease [facility] Natural brother Hypertension [facility] Maternal grandmother Tremor [facility] Natural mother COPD [facility] Natural mother Heart disease [facility] Natural mother Tremor [facility] Natural sister COPD [facility] Natural sister Hypertension [facility] Social History Social Habit Start Date Stop Date Quantity Comments Source History of Pulse Tobacco Use Alcohol intake 2022-07-19 2022-07-19 [address] [facility] Yahaira es 00:00:00 00:00:00 non-drinker of Medical nter alcohol (finding) Social History 2021-05-08 2021-05-08 [facility] 06:21:56 06:21:56 Tobacco use and 2016-12-19 2016-12-[address] [facility] exposure 00:00:00 00:00:00 non-user [facility] Sex Assigned At [address] [facility] Ani kes 00:00:00 00:00:00 [facility] Smoking Status Start Date Stop Date Source Tobacco smoking status [facility] Medications Ordered Filled Start Stop Current Ordering Indication Dosage Frequency Signature Comments Components Source Medication Medication Date Date Medication? Clinician (SIG) Name Name folic acid 1mg QD Take [address] [facility] (FOLVITE) 1 3-18 04-17 tablet (1 Ani kes MG tablet 00:00: 23:59 mg total) Me dical 00 :00 by mouth Center daily for 30 days. glycopyrrol Yes 1mg Q.5D Take [address] ate 3-17 by mouth 2 [facility] (ROBINUL) 1 18:09: (two) Medic al mg tablet 56 times Center daily. cycloSPORIN Yes 1[drp] Q.5D [address] [facility] E 3-17 (two) [facility] (RESTASIS) 18:09: times Medica l 0.05 % 56 daily. Center ophthalmic emulsion LORazepam 2022- No .5mg Q.5D Take 0.[address] [facility] (ATIVAN) 3-17 03-17 mg by [facility] 0.5 MG 13:10: 00:00 mouth 2 Medical tablet 04 :00 (two) Center times daily. fluticasone 2022- No 1{puff} Q.5D Inhale [address] [facility] -salmeterol 3-17 03-17 puff by Luke s (ADVAIR) 13:10: 00:00 mouth via Med ical 250-50 04 :00 inhaler 2 Center mcg/dose (two) diskus times inhaler daily. dexlansopra 2022- No 60mg QD Take [address] [facility] zole 60 mg -17 03-17 by mouth Luke s capsule 13:10: 00:00 daily. Medical 04 :00 Center albuterol-i 2022- No 2{puff} Inhale [address] [facility] pratropium 3-17 03-17 puffs by Luke s (COMBIVENT) 13:10: 00:00 mouth via Medical 18-103 04 :00 inhaler Center mcg/actuati every 6 on inhaler (six) hours as needed for Wheezing. diltiazem 2022- No 1{capsu QD Take [address] (CARDIZEM 3-17 03-17 le} capsule by Yahaira es CD) 360 MG 12:35: 00:00 mouth Medic al 24 hr 16 :00 daily. Center capsule fluticasone Yes 1{puff} Q.5D Inhale [address] [facility] propion-katy 3-17 puff by [facility]ukes meteroL 00:00: mouth via Medic al (ADVAIR) 00 inhaler 2 Center 250-50 (two) mcg/dose times diskus daily. inhaler apixaban 2022- No 5mg Q.5D Take [address] [facility] (ELIQUIS) 5 3-17 04-16 tablet (5 Ani kes mg Tab 00:00: 23:59 mg total) Medic al tablet 00 :00 by mouth 2 Center (two) times daily for 30 days. dexlansopra 2022- No 60mg QD Take [address] [facility] zole 60 mg 17 -16 capsule [facility] capsule 00:00: 23:59 (60 mg Medical 00 :00 total) by Center mouth daily for 30 days. rosuvastati No 20mg QD Take [address] [facility] n (CRESTOR) 17 04-16 tablets Luke s 10 MG 00:00: 23:59 (20 mg Medical tablet 00 :00 total) by Center mouth daily for 30 days. levothyroxi 2021-05 Yes 88 Memori a ne [...] PO, l oral 19:15: Daily, # 7 [place] enteric 00 tab, 0 coated Refill(s), tablet [...] PO, l oral 19:15: Daily, # 7 [place] enteric 00 tab, 0 coated Refill(s), tablet [...] PO, l oral 19:15: Daily, # 7 [place] enteric 00 tab, 0 coated Refill(s), tablet [...] PO, l oral 19:15: Daily, # 7 [place] enteric 00 tab, 0 coated Refill(s), tablet [...] PO, l oral tablet 19:14: Bedtime, # [place] 00 7 tab, 0 Refill(s), Pharmacy: Pharmacy [...] PO, l oral tablet 19:14: Bedtime, # [place] 00 7 tab, 0 Refill(s), Pharmacy: Pharmacy [...] PO, l oral tablet 19:14: Bedtime, # [place] 00 7 tab, 0 Refill(s), Pharmacy: Pharmacy [...] PO, l oral tablet 19:14: Bedtime, # Daniel 00 7 tab, 0 Refill(s), Pharmacy: Pharmacy [...] PO, l oral tablet 19:14: Bedtime, # Daniel 00 7 tab, 0 Refill(s), Pharmacy: Pharmacy [...] tab, PO, l tablet 13:41: BID, 0 [place] 00 Refill(s) glycopyrrol 2021-05 Yes 1 mg = 1 Me moria ate 1 mg 0-28 tab, PO, l oral tablet 13:41: BID, 0 Herm scotty 00 Refill(s) sertraline 2021-05 Yes 100 mg = 1 M emoria 100 mg oral 0-28 tab, PO, l tablet 13:41: BID, 0 [place] 00 Refill(s) glycopyrrol 2021-05 Yes 1 mg = 1 Me moria ate 1 mg 0-28 tab, PO, l oral tablet 13:41: BID, 0 Herm scotty 00 Refill(s) sertraline 2021-05 Yes 100 mg = 1 M emoria 100 mg oral 0-28 tab, PO, l tablet 13:41: BID, 0 [place] 00 Refill(s) digoxin 250 2021-05 Yes Notes: Mario elvira mcg (0.25 0-18 Take on an l mg) oral 14:01: Empty [place] tablet 00 Stomach (Same as: Lanoxin) digoxin 250 2021-05 Yes Notes: Mario elvira mcg (0.25 0-18 Take on an l mg) oral 14:01: Empty Daniel tablet 00 Stomach (Same as: Lanoxin) digoxin 250 2021-05 Yes Notes: Mario elvira mcg (0.25 0-18 Take on an l mg) oral 14:01: Empty Daniel tablet 00 Stomach (Same as: Lanoxin) digoxin 250 2021-05 Yes Notes: Mario elvira mcg (0.25 0-18 Take on an l mg) oral 14:01: Empty [place] tablet 00 Stomach (Same as: Lanoxin) digoxin 250 2021-05 Yes Notes: Mario elvira mcg (0.25 0-18 Take on an l mg) oral 14:01: Empty [place] tablet 00 Stomach (Same as: Lanoxin) aspirin 81 2021-05 Yes 81 mg = 1 Me moria mg tablet, 0-11 tab, PO, l enteric 21:08: Daily, 0 Quentin n coated 00 Refill(s) atorvastati 2021-05 Yes 40 mg = 1 M emoria n 40 mg 0-11 tab, PO, l oral tablet 21:08: Bedtime, 0 [place] 00 Refill(s) aspirin 81 2021-05 Yes 81 mg = 1 Me moria mg tablet, 0-11 tab, PO, l enteric 21:08: Daily, 0 Quentin n coated 00 Refill(s) atorvastati 2021-05 Yes 40 mg = 1 M emoria n 40 mg 0-11 tab, PO, l oral tablet 21:08: Bedtime, 0 [place] 00 Refill(s) aspirin 81 2021-05 Yes 81 mg = 1 Me moria mg tablet, 0-11 tab, PO, l enteric 21:08: Daily, 0 Quentin n coated 00 Refill(s) atorvastati 2021-05 Yes 40 mg = 1 M emoria n 40 mg 0-11 tab, PO, l oral tablet 21:08: Bedtime, 0 [place] 00 Refill(s) aspirin 81 2021-05 Yes 81 mg = 1 Me moria mg tablet, 0-11 tab, PO, l enteric 21:08: Daily, 0 Quentin n coated 00 Refill(s) atorvastati 2021-05 Yes 40 mg = 1 M emoria n 40 mg 0-11 tab, PO, l oral tablet 21:08: Bedtime, 0 [place] 00 Refill(s) aspirin 81 2021-05 Yes 81 [...] tab, PO, l tablet 21:07: Q12H, 0 [place] 00 Refill(s) apixaban 5 2021-05 Yes 5 mg = 1 Mem oria mg oral 0-11 tab, PO, l tablet 21:07: Q12H, 0 [place] 00 Refill(s) apixaban 5 2021-05 Yes 5 mg = 1 Mem oria mg oral 0-11 tab, PO, l tablet 21:07: Q12H, 0 Daniel 00 Refill(s) atorvastati 2021-05 Yes Notes: Mario elvira n 0-10 (Same as: l 02:00: Lipitor) [place] 00 Saline 2021-05 Yes Notes: Memoria Flush 0.9% 0-10 (Same as: l 02:00: BD [place] 00 Posiflush) atorvastati 2021-05 Yes Notes: Mario elvira n 0-10 (Same as: l 02:00: Lipitor) Daniel 00 Saline 2021-05 Yes Notes: Memoria Flush 0.9% 0-10 (Same as: l 02:00: BD Daniel Posiflush) atorvastati 2021-05 Yes Notes: Mario elvira n 0-10 (Same as: l 02:00: Lipitor) [place] 00 Saline 2021-05 Yes Notes: Memoria Flush 0.9% 0-10 (Same as: l 02:00: BD [place] 00 Posiflush) atorvastati 2021-05 Yes Notes: Mario elvira n 0-10 (Same as: l 02:00: Lipitor) [place] 00 Saline 2021-05 Yes Notes: Memoria Flush 0.9% 0-10 (Same as: l 02:00: BD Daniel 00 Posiflush) atorvastati 2021-05 Yes Notes: Mario elvira n 0-10 (Same as: l 02:00: Lipitor) Daniel 00 Saline 2021-05 Yes Notes: Memoria Flush 0.9% 0-10 (Same as: l 02:00: BD [place] 00 Posiflush) Protonix 2021-05 Yes Notes: For Mem oria 0-09 IV push l 20:57: reconstitu [place] 00 te with 10 ml 0.9% sodium [...] oria 0-09 IV push l 20:57: reconstitu [place] 00 te with 10 ml 0.9% sodium [...] 0.9% 0-09 (Same as: l 20:50: BD [place] 00 Posiflush) Saline 2021-05 Yes Notes: Memoria [...] Duration: 30 day, Stop date: 03/14/22 15:15:00 [employer] TECHNICIAN, BSA: 1.83 m2, 0 aspirin 300 2021-05 [...] Duration: 30 day, Stop date: 03/14/22 15:15:00 CORONER [employer]SPORT TECHNICIAN, BSA: 1.83 m2, 0 aspirin 300 2021-05 [...] Duration: 30 day, Stop date: 03/14/22 15:15:00 CORONER TRANSPORT TECHNICIAN, BSA: 1.83 m2, 0 aspirin 300 2021-05 [...] Duration: 30 day, Stop date: 03/14/22 15:15:00 CORONER TRANSPORT TECHNICIAN, BSA: 1.83 m2, 0 aspirin 300 2021-05 [...] Duration: 30 day, Stop date: 03/14/22 15:15:00 CORONER TRANSPORT TECHNICIAN, BSA: 1.83 m2, 0 aspirin 300 2021-05 [...] ia 0-09 (Same as: l 20:00: Lovenox) Dextrose 2021-05 Yes 12.5 gm, Memor ia 50% Syringe 0-09 25 mL, l (D50W) 19:25: Route: Daniel 00 IVP, Drug Form: INJ, Dosing Weight 73.7, kg, PRN, PRN Blood Glucose Results, Start date: 02/12/22 14:25:00 CDT, Duration: 30 day, Stop date: 03/14/22 13:24:00 [employer] TECHNICIAN, 0 glucagon 2021-05 Yes 1 mg, Memoria 0-09 Route: IM, l 19:25: Drug form: [place] 00 PDR/INJ, PRN, Dosing Weight 73.7, kg, PRN Blood Glucose Results, Start date: 02/12/22 14:25:00 CDT, Duration: 30 day, Stop date: 03/14/22 13:24:00 [employer] TECHNICIAN, 0 docusate 2021-05 Yes Notes: Memoria 0-09 (Same as: l 19:25: Colace) (Do Not Crush) ondansetron 2021-05 Yes Notes: Mario elvira 0-09 (Same as: l 19:25: Zofran) MEDICATION WASTE Product Size: 4 mg Product Wasted: ___ mg Dextrose 2021-05 Yes 12.5 gm, Memor ia 50% Syringe 0-09 25 mL, l (D50W) 19:25: Route: Daniel 00 IVP, Drug Form: INJ, Dosing Weight 73.7, kg, PRN, PRN Blood Glucose Results, Start date: 02/12/22 14:25:00 CDT, Duration: 30 day, Stop date: 03/14/22 13:24:00 [employer]ER [employer]SP[employer] TECHNICIAN, 0 glucagon 2021-05 Yes 1 mg, Memoria 0-09 Route: IM, l 19:25: Drug form: [place] 00 PDR/INJ, PRN, Dosing Weight 73.7, kg, PRN Blood Glucose Results, Start date: 02/12/22 14:25:00 CDT, Duration: 30 day, Stop date: 03/14/22 13:24:00 [employer]ONER [employer]SP[employer] TECHNICIAN, 0 docusate 2021-05 Yes Notes: Memoria 0-09 (Same as: l 19:25: Colace) Daniel 00 (Do Not Crush) ondansetron 2021-05 Yes Notes: Mario elvira 0-09 (Same as: l 19:25: Zofran) Daniel 00 MEDICATION WASTE Product Size: 4 mg Product Wasted: ___ mg Dextrose 2021-05 Yes 12.5 gm, Memor ia 50% Syringe 0-09 25 mL, l (D50W) 19:25: Route: Daniel 00 IVP, Drug Form: INJ, Dosing Weight 73.7, kg, PRN, PRN Blood Glucose Results, Start date: 02/12/22 14:25:00 CDT, Duration: 30 day, Stop date: 03/14/22 13:24:00 [employer]ER [employer]SP[employer] TECHNICIAN, 0 glucagon 2021-05 Yes 1 mg, Memoria 0-09 Route: IM, l 19:25: Drug form: [place] 00 PDR/INJ, PRN, Dosing Weight 73.7, kg, PRN Blood Glucose Results, Start date: 02/12/22 14:25:00 CDT, Duration: 30 day, Stop date: 03/14/22 13:24:00 CORONER [employer]SPORT TECHNICIAN, 0 docusate 2021-05 Yes Notes: Memoria 0-09 (Same as: l 19:25: Colace) (Do Not Crush) ondansetron 2021-05 Yes Notes: Mario elvira 0-09 (Same as: l 19:25: Zofran) [place] 00 MEDICATION WASTE Product Size: 4 mg Product Wasted: ___ mg Dextrose 2021-05 Yes 12.5 gm, Memor ia 50% Syringe 0-09 25 mL, l (D50W) 19:25: Route: [place] 00 IVP, Drug Form: INJ, Dosing Weight 73.7, kg, PRN, PRN Blood Glucose Results, Start date: 02/12/22 14:25:00 CDT, Duration: 30 day, Stop date: 03/14/22 13:24:00 CORONER [employer]SPORT TECHNICIAN, 0 glucagon 2021-05 Yes 1 mg, Memoria 0-09 Route: IM, l 19:25: Drug form: [place] 00 PDR/INJ, PRN, Dosing Weight 73.7, kg, PRN Blood Glucose Results, Start date: 02/12/22 14:25:00 CDT, Duration: 30 day, Stop date: 03/14/22 13:24:00 CORONER TRANSPORT TECHNICIAN, 0 docusate 2021-05 Yes Notes: Memoria 0-09 (Same as: l 19:25: Colace) (Do Not Crush) ondansetron 2021-05 Yes Notes: Mario elvira 0-09 (Same as: l 19:25: Zofran) MEDICATION WASTE Product Size: 4 mg Product Wasted: ___ mg Dextrose 2021-05 Yes 12.5 gm, Memor ia 50% Syringe 25 mL, l (D50W) 19:25: Route: IVP, Drug Form: INJ, Dosing Weight 73.7, kg, PRN, PRN Blood Glucose Results, Start date: 02/12/22 14:25:00 CDT, Duration: 30 day, Stop date: 03/14/22 13:24:00 CORONER TRANSPORT TECHNICIAN, 0 glucagon 2021-05 Yes 1 mg, Memoria 0-09 Route: IM, l 19:25: Drug form: Daniel 00 PDR/INJ, PRN, Dosing Weight 73.7, kg, PRN Blood Glucose Results, Start date: 02/12/22 14:25:00 CDT, Duration: 30 day, Stop date: 03/14/22 13:24:00 CORONER TRANSPORT TECHNICIAN, 0 docusate 2021-05 Yes Notes: Memoria 0-09 [...] Weight 80.455, kg, Start date: 05/09/21 9:00:00 CORONER TRANSPORT TECHNICIAN, Duration: 30 day, Stop date: 06/07/21 9:00:00 CORONER TRANSPORT TECHNICIAN Diltiazem No Notes: Memori a Hydrochlori 1-03 [...] Weight 80.455, kg, Start date: 05/09/21 9:00:00 CORONER TRANSPORT TECHNICIAN, Duration: 30 day, Stop date: 06/07/21 9:00:00 CORONER TRANSPORT TECHNICIAN Diltiazem No Notes: Memori a Hydrochlori 1-03 [...] Weight 80.455, kg, Start date: 05/09/21 9:00:00 CORONER TRANSPORT TECHNICIAN, Duration: 30 day, Stop date: 06/07/21 9:00:00 CORONER TRANSPORT TECHNICIAN Diltiazem 0 No Notes: Memori a Hydrochlori [...] Weight 80.455, kg, Start date: 05/09/21 9:00:00 CORONER TRANSPORT TECHNICIAN, Duration: 30 day, Stop date: 06/07/21 9:00:00 CORONER TRANSPORT TECHNICIAN Diltiazem No Notes: Memori a Hydrochlori 1-03 [...] Weight 80.455, kg, Start date: 05/09/21 9:00:00 CORONER TRANSPORT TECHNICIAN, Duration: 30 day, Stop date: 06/07/21 9:00:00 CORONER TRANSPORT TECHNICIAN Diltiazem 0 No Notes: Memori a Hydrochlori [...] Memoria 1-03 Tablet l 13:30: should not [place] 00 be chewed or crushed. (Same as: Protonix) Protonix No Notes: Memoria 1-03 Tablet l 13:30: should not Daniel 00 be chewed or crushed. (Same as: Protonix) Protonix No Notes: Memoria 1-03 Tablet l 13:30: should not [place] 00 be chewed or crushed. (Same as: Protonix) Thyroxine No Notes: Memori a 1-03 Take 1 l 12:00: hour [place] 00 before or 2 hours after meal; [...] a 1-03 Take 1 l 12:00: hour [place] 00 before or 2 hours after meal; [...] as:Synthro id) Sertraline No Notes: Memor ia 1- (Same as: l 03:00: Zoloft) atorvastati No Notes: Mario elvira n 1-03 (Same as: l 03:00: Lipitor) Sertraline No Notes: Memor ia 1- (Same as: l 03:00: Zoloft) atorvastati No [...] Respules 1-03 (Same As: l 02:00: Pulmicort) Pulmicort No Notes: Memori a Respules 1-03 (Same As: l 02:00: Pulmicort) Pulmicort No Notes: Memori a Respules 1-03 (Same As: l 02:00: Pulmicort) Pulmicort No Notes: Memori a Respules 1-03 (Same As: l 02:00: Pulmicort) Pulmicort No Notes: Memori a Respules 1-03 (Same As: l 02:00: Pulmicort) Advair No 1 puff, Memoria Diskus 250 05-08 Route: l mcg-50 mcg 23:00: INHALATION H ermann inhalation , Drug powder Form: AERO, Dosing Weight 80.455, kg, BID, Start date: 05/08/21 17:00:00 CORONER TRANSPORT TECHNICIAN, Duration: 30 day, Stop date: 06/07/21 9:00:00 CORONER TRANSPORT TECHNICIAN Advair No 1 puff, Memoria Diskus 250 05-08 Route: l mcg-50 mcg 23:00: INHALATION H ermann inhalation 00 , Drug powder Form: AERO, Dosing Weight 80.455, kg, BID, Start date: 05/08/21 17:00:00 CORONER TRANSPORT TECHNICIAN, Duration: 30 day, Stop date: 06/07/21 9:00:00 CORONER TRANSPORT TECHNICIAN Advair 2021-0 No 1 puff, Memoria Diskus 250 - Route: l mcg-50 mcg 23:00: INHALATION H ermann inhalation , Drug powder Form: AERO, Dosing Weight 80.455, kg, BID, Start date: 05/08/21 17:00:00 CORONER TRANSPORT TECHNICIAN, Duration: 30 day, Stop date: 06/07/21 9:00:00 CORONER TRANSPORT TECHNICIAN Advair 2021-0 No 1 puff, Memoria Diskus 250 - Route: l mcg-50 mcg 23:00: INHALATION H ermann inhalation , Drug powder Form: AERO, Dosing Weight 80.455, kg, BID, Start date: 05/08/21 17:00:00 CORONER TRANSPORT TECHNICIAN, Duration: 30 day, Stop date: 06/07/21 9:00:00 CORONER TRANSPORT TECHNICIAN Advair 2021-0 No 1 puff, Memoria Diskus 250 05-08 Route: l mcg-50 mcg 23:00: INHALATION H ermann inhalation , Drug powder Form: AERO, Dosing Weight 80.455, kg, BID, Start date: 05/08/21 17:00:00 CORONER TRANSPORT TECHNICIAN, Duration: 30 day, Stop date: 06/07/21 9:00:00 CORONER TRANSPORT TECHNICIAN Albuterol 0 No Notes: SEE Nm moria - RT l 21:00: DOCUMENTAT Daniel 00 ION (Same as: Proventil) Albuterol No Notes: SEE Nm moria - RT l 21:00: DOCUMENTAT [place] 00 ION (Same as: Proventil) Albuterol No Notes: SEE Nm moria - RT l 21:00: DOCUMENTAT Daniel 00 ION (Same as: Proventil) Albuterol No Notes: SEE Nm moria - RT l 21:00: DOCUMENTAT [place] 00 ION (Same as: Proventil) Albuterol 0 No Notes: SEE Nm moria - RT l 21:00: DOCUMENTAT Daniel 00 ION (Same as: Proventil) Aspirin 81 2022-0 Yes 81 mg = 1 Me moria MG Chewable 1-02 tab, PO, l Tablet 19:15: Daily, # Daniel 00 30 tab, 0 Refill(s), Pharmacy: [facility] cy #[id number], 160.02, cm, 05/08/21 0:09:00 CORONER TRANSPORT TECHNICIAN, Height, 80.455, kg, 05/08/21 0:09:00 CORONER TRANSPORT TECHNICIAN, Weight Aspirin 81 2021-0 Yes 81 mg = 1 Me moria MG Chewable 1-02 tab, PO, l Tablet 19:15: Daily, # [place] 00 30 tab, 0 Refill(s), Pharmacy: [facility] cy #[id number], 160.02, cm, 05/08/21 0:09:00 CORONER TRANSPORT TECHNICIAN, Height, 80.455, kg, 05/08/21 0:09:00 CORONER TRANSPORT TECHNICIAN, Weight Aspirin 81 2021-0 Yes 81 mg = 1 Me moria MG Chewable 1-02 tab, PO, l Tablet 19:15: Daily, # Daniel 00 30 tab, 0 Refill(s), Pharmacy: [facility] cy #[id number], 160.02, cm, 05/08/21 0:09:00 CORONER TRANSPORT TECHNICIAN, Height, 80.455, kg, 05/08/21 0:09:00 CORONER TRANSPORT TECHNICIAN, Weight Aspirin 81 2021-0 Yes 81 mg = 1 Me moria MG Chewable 1-02 tab, PO, l Tablet 19:15: Daily, # [place] 00 30 tab, 0 Refill(s), Pharmacy: [facility] cy #[id number], 160.02, cm, 05/08/21 0:09:00 CORONER TRANSPORT TECHNICIAN, Height, 80.455, kg, 05/08/21 0:09:00 CORONER TRANSPORT TECHNICIAN, Weight Aspirin 81 2021-0 Yes 81 mg = 1 Me moria MG Chewable 1-02 tab, PO, l Tablet 19:15: Daily, # [place] 00 30 tab, 0 Refill(s), Pharmacy: [facility] cy #[id number], 160.02, cm, 05/08/21 0:09:00 CORONER TRANSPORT TECHNICIAN, Height, 80.455, kg, 05/08/21 0:09:00 CORONER TRANSPORT TECHNICIAN, Weight Ciprofloxac 2021- Yes 500 mg = 1 Memoria in 500 MG 1-02 tab, PO, l Oral Tablet 19:14: Q12H, for H ermann [Cipro] 00 UTI, X 3 day, # 6 tab, 0 Refill(s), Pharmacy: [facility] cy #[id number], 160.02, cm, 05/08/21 0:09:00 CORONER TRANSPORT TECHNICIAN, Height, 80.455, kg, 05/08/21 0:09:00 CORONER TRANSPORT TECHNICIAN, Weight Ciprofloxac 2-0 Yes 500 mg = 1 Memoria in 500 MG 1-02 tab, PO, l Oral Tablet 19:14: Q12H, for H ermann [Cipro] 00 UTI, X 3 day, # 6 tab, 0 Refill(s), Pharmacy: [facility] cy #[id number], 160.02, cm, 05/08/21 0:09:00 CORONER TRANSPORT TECHNICIAN, Height, 80.455, kg, 05/08/21 0:09:00 CORONER TRANSPORT TECHNICIAN, Weight Ciprofloxac 2021-0 Yes 500 mg = 1 Memoria in 500 MG 1-02 tab, PO, l Oral Tablet 19:14: Q12H, for H ermann [Cipro] 00 UTI, X 3 day, # 6 tab, 0 Refill(s), Pharmacy: [facility] cy #[id number], 160.02, cm, 05/08/21 0:09:00 CORONER TRANSPORT TECHNICIAN, Height, 80.455, kg, 05/08/21 0:09:00 CORONER TRANSPORT TECHNICIAN, Weight Ciprofloxac 2021-0 Yes 500 mg = 1 Memoria in 500 MG 1-02 tab, PO, l Oral Tablet 19:14: Q12H, for H ermann [Cipro] 00 UTI, X 3 day, # 6 tab, 0 Refill(s), Pharmacy: [facility] cy #[id number], 160.02, cm, 05/08/21 0:09:00 CORONER TRANSPORT TECHNICIAN, Height, 80.455, kg, 05/08/21 0:09:00 CORONER TRANSPORT TECHNICIAN, Weight Ciprofloxac 2021-0 Yes 500 mg = 1 Memoria in 500 MG 1-02 tab, PO, l Oral Tablet 19:14: Q12H, for H ermann [Cipro] 00 UTI, X 3 day, # 6 tab, 0 Refill(s), Pharmacy: [facility] cy #[id number], 160.02, cm, 05/08/21 0:09:00 CORONER TRANSPORT TECHNICIAN, Height, 80.455, kg, 05/08/21 0:09:00 CORONER TRANSPORT TECHNICIAN, Weight atorvastati 2021-0 Yes 80 mg = 1 M emoria n 80 MG 1-02 tab, PO, l Oral Tablet 19:13: Bedtime, # Daniel [Lipitor] 00 30 tab, 0 Refill(s), [id number] 160.02, cm, 05/08/21 0:09:00 CORONER TRANSPORT TECHNICIAN, Height, 80.455, kg, 05/08/21 0:09:00 CORONER TRANSPORT TECHNICIAN, Weight atorvastati 2021-0 Yes 80 mg = 1 M emoria n 80 MG 1-02 tab, PO, l Oral Tablet 19:13: Bedtime, # [place] [Lipitor] 00 30 tab, 0 Refill(s), Pharmacy: [facility] cy #[id number], 160.02, cm, 05/08/21 0:09:00 CORONER TRANSPORT TECHNICIAN, Height, 80.455, kg, 05/08/21 0:09:00 CORONER TRANSPORT TECHNICIAN, Weight atorvastati 2021-0 Yes 80 mg = 1 M emoria n 80 MG 1-02 tab, PO, l Oral Tablet 19:13: Bedtime, # Daniel [Lipitor] 00 30 tab, 0 Refill(s), Pharmacy: [facility] cy #[id number], 160.02, cm, 05/08/21 0:09:00 CORONER TRANSPORT TECHNICIAN, Height, 80.455, kg, 05/08/21 0:09:00 CORONER TRANSPORT TECHNICIAN, Weight atorvastati 2021-0 Yes 80 mg = 1 M emoria n 80 MG 1-02 tab, PO, l Oral Tablet 19:13: Bedtime, # Daniel [Lipitor] 00 30 tab, 0 Refill(s), Pharmacy: [facility] cy #[id number], 160.02, cm, 05/08/21 0:09:00 CORONER TRANSPORT TECHNICIAN, Height, 80.455, kg, 05/08/21 0:09:00 CORONER TRANSPORT TECHNICIAN, Weight atorvastati 2021-0 Yes 80 mg = 1 M emoria n 80 MG 1-02 tab, PO, l Oral Tablet 19:13: Bedtime, # Daniel [Lipitor] 00 30 tab, 0 Refill(s), Pharmacy: [facility] cy #[id number], 160.02, cm, 05/08/21 0:09:00 CORONER TRANSPORT TECHNICIAN, Height, 80.455, kg, 05/08/21 0:09:00 CORONER TRANSPORT TECHNICIAN, Weight Ciprofloxac 2021-0 No 500 mg = 1 Memoria in 500 MG 1-02 tab, PO, l Oral Tablet 18:57: Q12H, for H ermann [Cipro] 00 UTI, X 3 day, # 6 tab, 0 Refill(s) Ciprofloxac 2021-0 No 500 mg = 1 Memoria in 500 MG 1-02 tab, PO, l Oral Tablet 18:57: Q12H, for H ermann [Cipro] 00 UTI, X 3 day, # 6 tab, 0 Refill(s) Ciprofloxac 2021-0 No 500 mg = 1 Memoria in 500 MG 1-02 tab, PO, l Oral Tablet 18:57: Q12H, for H ermann [Cipro] 00 UTI, X 3 day, # 6 tab, 0 Refill(s) Ciprofloxac 0 No 500 mg = 1 Memoria in 500 MG 1-02 tab, PO, l Oral Tablet 18:57: Q12H, for H ermann [Cipro] 00 UTI, X 3 day, # 6 tab, 0 Refill(s) Ciprofloxac 2021-0 No 500 mg = 1 Memoria in [...] PO, l Oral Tablet 18:17: Bedtime, # Daniel [Lipitor] 00 30 tab, 0 Refill(s) pantoprazol 2021-0 No 40 mg = 1 M emoria e 40 mg 1-02 tab, PO, l oral 18:17: Before Daniel enteric 00 Breakfast, coated # 30 tab, tablet 0 Refill(s) atorvastati 2021-0 No 80 mg = 1 M emoria n 80 MG 1-02 tab, PO, l Oral Tablet 18:17: Bedtime, # [place] [Lipitor] 00 30 tab, 0 Refill(s) pantoprazol 2021-0 No 40 mg = 1 M emoria e 40 mg 1-02 tab, PO, l oral 18:17: Before Breakfast, coated # 30 tab, tablet 0 Refill(s) atorvastati 2021-0 No 80 mg = 1 M emoria n 80 MG 1-02 tab, PO, l Oral Tablet 18:17: Bedtime, # [place] [Lipitor] 00 30 tab, 0 Refill(s) pantoprazol 2021-0 No 40 mg = 1 M emoria e 40 mg 1-02 tab, PO, l oral 18:17: Before Breakfast, coated # 30 tab, tablet 0 Refill(s) atorvastati 0 No 80 mg = 1 M emoria n 80 MG 1-02 tab, PO, l Oral Tablet 18:17: Bedtime, # [place] [Lipitor] 00 30 tab, 0 Refill(s) pantoprazol 2021-0 No 40 mg = 1 M emoria e 40 mg 1-02 tab, PO, l oral 18:17: Before Breakfast, coated # 30 tab, tablet 0 Refill(s) atorvastati 2021-0 No 80 mg = 1 M emoria n 80 MG 1-02 tab, PO, l Oral Tablet 18:17: Bedtime, # [place] [Lipitor] 00 30 tab, 0 Refill(s) Aspirin 81 2021-0 No 81 mg = 1 Me moria MG Chewable 1-02 tab, PO, l Tablet 18:16: Daily, # Daniel 00 30 tab, 0 Refill(s) Aspirin 81 2021-0 No 81 mg = 1 Me moria MG Chewable 1-02 tab, PO, l Tablet 18:16: Daily, # [place] 00 30 tab, 0 Refill(s) Aspirin 81 2021-0 No 81 mg = 1 Me moria MG Chewable 1-02 tab, PO, l Tablet 18:16: Daily, # [place] 00 30 tab, 0 Refill(s) Aspirin 81 2021-0 No 81 mg = 1 Me moria MG Chewable 1-02 tab, PO, l Tablet 18:16: Daily, # Daniel 00 30 tab, 0 Refill(s) Aspirin 81 2021-0 No 81 mg = 1 Me moria MG Chewable 1-02 tab, PO, l Tablet 18:16: Daily, # [place] 00 30 tab, 0 Refill(s) Advair 2021-0 [...] inhalation 00 ea, 3 powder Refill(s) sertraline 2021-0 Yes 100 mg = 1 M emoria 100 mg oral 1-02 tab, PO, l tablet 15:49: BID, 0 Daniel 00 Refill(s) sertraline 2021-0 Yes 100 mg = 1 M emoria 100 mg oral 1-02 tab, PO, l tablet 15:49: BID, 0 [place] 00 Refill(s) sertraline 2021-0 Yes 100 mg = 1 M emoria 100 mg oral 1-02 tab, PO, l tablet 15:49: BID, 0 Daniel 00 Refill(s) sertraline 2021-0 Yes 100 mg = 1 M emoria 100 mg oral 1-02 tab, PO, l tablet 15:49: BID, 0 Refill(s) sertraline Yes 100 mg = 1 M emoria 100 mg oral 1-02 tab, PO, l tablet 15:49: BID, 0 Refill(s) Aspirin 81 No Notes: Memor ia MG Chewable 1-02 Take with l Tablet 15:00: food. Famotidine No Notes: Memor ia 1-02 (Same as: l 15:00: Pepcid) Saline No Notes: Memoria Flush 0.9% 1-02 (Same as: l 15:00: BD Daniel Posiflush) Aspirin 81 No Notes: Memor ia MG Chewable 1-02 Take with l Tablet 15:00: food. Famotidine No Notes: Memor ia 1-02 (Same as: l 15:00: Pepcid) Saline No Notes: Memoria Flush 0.9% 1-02 (Same as: l 15:00: BD Daniel Posiflush) Aspirin 81 No Notes: Memor ia MG Chewable 1-02 Take with l Tablet 15:00: food. Famotidine No Notes: Memor ia 1-02 (Same as: l 15:00: Pepcid) Saline No Notes: Memoria Flush 0.9% 1-02 (Same as: l 15:00: BD [place] Posiflush) Aspirin 81 No Notes: Memor ia MG Chewable 1-02 Take with l Tablet 15:00: food. Famotidine No Notes: Memor ia 1-02 (Same as: l 15:00: Pepcid) Saline No Notes: Memoria Flush 0.9% 1-02 (Same as: l 15:00: BD [place] Posiflush) Aspirin 81 No Notes: Memor ia MG Chewable 1-02 Take with l Tablet 15:00: food. Famotidine 2022-0 No Notes: Memor ia 05-08 (Same as: l 15:00: Pepcid) Saline 0 No Notes: Memoria Flush 0.9% 05-08 (Same as: l 15:00: BD Daniel Posiflush) Enoxaparin 0 No 40 mg, Memor ia 05-08 Route: l 07:00: SUB-Q, Daniel 00 [id number], Dosing Weight 80.455, kg, Start date: 05/08/21 1:00:00 CORONER TRANSPORT TECHNICIAN, Duration: 30 day, Stop date: 06/06/21 1:00:00 CORONER TRANSPORT TECHNICIAN Omnipaque 2021-0 No Notes: Memori a 350 05-08 (same l injectable 07:00: as:Omnipaq H ermann solution 00 ue 350). WASTE: F/P - Black; E - Municipal Trash Bin Enoxaparin 0 No 40 mg, Memor ia 05-08 Route: l 07:00: SUB-Q, Daniel 00 [id number], Dosing Weight 80.455, kg, Start date: 05/08/21 1:00:00 CORONER TRANSPORT TECHNICIAN, Duration: 30 day, Stop date: 06/06/21 1:00:00 CORONER TRANSPORT TECHNICIAN Omnipaque 2021-0 No Notes: Memori a 350 05-08 (same l injectable 07:00: as:Omnipaq H ermann solution 00 ue 350). WASTE: F/P - Black; E - Municipal Trash Bin Enoxaparin 0 No 40 mg, Memor ia 05-08 Route: l 07:00: SUB-Q, Daniel 00 [id number], Dosing Weight 80.455, kg, Start date: 05/08/21 1:00:00 CORONER TRANSPORT TECHNICIAN, Duration: 30 day, Stop date: 06/06/21 1:00:00 CORONER TRANSPORT TECHNICIAN Omnipaque 2021-0 No Notes: Memori a 350 05-08 (same l injectable 07:00: as:Omnipaq H ermann solution 00 ue 350). WASTE: F/P - Black; E - Municipal Trash Bin Enoxaparin 0 No 40 mg, Memor ia 05-08 Route: l 07:00: SUB-Q, [place] 00 [id number], Dosing Weight 80.455, kg, Start date: 05/08/21 1:00:00 CORONER TRANSPORT TECHNICIAN, Duration: 30 day, Stop date: 06/06/21 1:00:00 CORONER TRANSPORT TECHNICIAN Omnipaque 0 No Notes: Memori a 350 05-08 (same l injectable 07:00: as:Omnipaq H ermann solution 00 ue 350). WASTE: F/P - Black; E - Municipal Trash Bin Enoxaparin No 40 mg, Memor ia 05-08 Route: l 07:00: SUB-Q, Daniel 00 [id number], Dosing Weight 80.455, kg, Start date: 05/08/21 1:00:00 CORONER TRANSPORT TECHNICIAN, Duration: 30 day, Stop date: 06/06/21 1:00:00 CORONER TRANSPORT TECHNICIAN Omnipaque No Notes: Memori a 350 05-08 (same l injectable 07:00: as:Omnipaq H ermann solution 00 ue 350). WASTE: F/P - Black; E - Municipal Trash Bin rosuvastati No 10 mg = 1 M emoria n 10 MG 1-02 cap, PO, l Oral 06:44: Daily, 0 Daniel Capsule 00 Refill(s) Advair Yes INHALATION Memor ia Diskus 250 -02 , BID, 0 l mcg-50 mcg 06:44: Refill(s) He rmann inhalation 00 powder rosuvastati No 10 mg = 1 M emoria n 10 MG 1-02 cap, PO, l Oral 06:44: Daily, 0 Daniel Capsule 00 Refill(s) Advair Yes INHALATION Memor ia Diskus 250 -02 , BID, 0 l mcg-50 mcg 06:44: Refill(s) He rmann inhalation 00 powder rosuvastati No 10 mg = 1 M emoria n 10 MG 1-02 cap, PO, l Oral 06:44: Daily, 0 [place] Capsule 00 Refill(s) Advair Yes INHALATION Memor ia Diskus 250 -02 , BID, 0 l mcg-50 mcg 06:44: Refill(s) He rmann inhalation 00 powder rosuvastati 0 No 10 mg = 1 M emoria n 10 MG 02 cap, PO, l Oral 06:44: Daily, 0 [...] = 1 Me moria ate 1 mg 1-02 tab, PO, l oral tablet 06:43: BID, 0 Herm scotty 00 Refill(s) Eliquis No Notes: Memoria 05-08 Same as: l 06:43: Eliquis [place] 00 glycopyrrol Yes 1 mg = 1 Me moria ate 1 mg 1-02 tab, PO, l oral tablet 06:43: BID, 0 Herm scotty 00 Refill(s) Eliquis No Notes: Memoria 05-08 Same as: l 06:43: Eliquis Daniel 00 glycopyrrol Yes 1 mg = 1 Me moria ate 1 mg 1-02 tab, PO, l oral tablet 06:43: BID, 0 Herm scotty 00 Refill(s) Eliquis No Notes: Memoria 05-08 Same as: l 06:43: Eliquis Daniel 00 glycopyrrol Yes 1 mg = 1 Me moria ate 1 mg 1-02 tab, PO, l oral tablet 06:43: BID, 0 Herm scotty 00 Refill(s) Eliquis No Notes: Memoria 05-08 Same as: l 06:43: Eliquis [place] 00 glycopyrrol Yes 1 mg = 1 Me moria ate 1 mg 1-02 tab, PO, l oral tablet 06:43: BID, 0 Herm scotty 00 Refill(s) Acetaminoph No Notes: Do M emoria en 05-08 not exceed l 06:42: 4 gm/day. [place] 00 (Same as: Tylenol) Saline No Notes: Memoria Flush 0.9% 05-08 (Same as: l 06:42: BD [place] 00 Posiflush) apixaban Yes 2.5 mg = 1 Mem oria 2.5 MG Oral 05-08 tab, PO, l Tablet 06:42: BID, 0 Daniel [Eliquis] 00 Refill(s) Acetaminoph No Notes: Do M emoria en 05-08 not exceed l 06:42: 4 gm/day. Daniel 00 (Same as: Tylenol) Saline No Notes: Memoria Flush 0.9% 05-08 (Same as: l 06:42: BD [place] 00 Posiflush) apixaban Yes 2.5 mg = 1 Mem oria 2.5 MG Oral 05-08 tab, PO, l Tablet 06:42: BID, 0 [place] [Eliquis] 00 Refill(s) Acetaminoph No Notes: Do M emoria en 05-08 not exceed l 06:42: 4 gm/day. [place] 00 (Same as: Tylenol) Saline No Notes: Memoria Flush 0.9% 05-08 (Same as: l 06:42: BD Daniel 00 Posiflush) apixaban Yes 2.5 mg = 1 Mem oria 2.5 MG Oral 05-08 tab, PO, l Tablet 06:42: BID, 0 [place] [Eliquis] 00 Refill(s) Acetaminoph No Notes: Do M emoria en 05-08 not exceed l 06:42: 4 gm/day. Daniel 00 (Same as: Tylenol) Saline No Notes: Memoria Flush 0.9% 05-08 (Same as: l 06:42: BD Daniel 00 Posiflush) apixaban Yes 2.5 mg = 1 Mem oria 2.5 MG Oral 1-02 tab, PO, l Tablet 06:42: BID, 0 Daniel [Eliquis] 00 Refill(s) Acetaminoph No Notes: Do M danielaria en 05-08 not exceed l 06:42: 4 gm/day. Daniel 00 (Same as: Tylenol) Saline No Notes: Memoria Flush 0.9% 05-08 (Same as: l 06:42: BD [place] 00 Posiflush) apixaban Yes 2.5 mg = 1 Mem oria 2.5 MG Oral 05-08 tab, PO, l Tablet 06:42: BID, 0 Daniel [Eliquis] 00 Refill(s) Sodium No 250 mL, Memoria Chloride 02 250 ml/hr, l 0.9% 06:41: Infuse Daniel (Bolus) IV 00 Over: 1 hr, Route: IV, 250, Drug form: INJ, ONCE, Priority: STAT, Dosing Weight 80.455 kg, Start date: 05/08/21 0:41:00 CORONER TRANSPORT TECHNICIAN, PRN Other -See Comment, 0 DilTIAZem 0 Yes 360 mg = 1 Me moria (Eqv-Cardiz 1-02 cap, PO, l em CD) 360 06:41: Daily, 0 Her adan mg/24 hours 00 Refill(s) oral capsule, extended release DilTIAZem 0 Yes 360 mg = 1 Me moria (Eqv-Cardiz 1-02 cap, PO, l em CD) 360 06:41: Daily, 0 Her adan mg/24 hours 00 Refill(s) oral capsule, extended release Sodium 0 No 250 mL, Memoria Chloride 02 250 ml/hr, l 0.9% 06:41: Infuse [place] (Bolus) IV 00 Over: 1 hr, Route: IV, 250, Drug form: INJ, ONCE, Priority: STAT, Dosing Weight 80.455 kg, Start date: 05/08/21 0:41:00 CORONER TRANSPORT TECHNICIAN, PRN Other -See Comment, 0 DilTIAZem 2021-0 Yes 360 mg = 1 Me moria (Eqv-Cardiz 1-02 cap, PO, l em CD) 360 06:41: Daily, 0 Her adan mg/24 hours 00 Refill(s) oral capsule, extended release DilTIAZem 2022-0 Yes 360 mg = 1 Me moria (Eqv-Cardiz 1-02 cap, PO, l em CD) 360 06:41: Daily, 0 Her adan mg/24 hours 00 Refill(s) oral capsule, extended release Sodium 2022-0 No 250 mL, Memoria Chloride 1-02 250 ml/hr, l 0.9% 06:41: Infuse Daniel (Bolus) IV 00 Over: 1 hr, Route: IV, 250, Drug form: INJ, ONCE, Priority: STAT, Dosing Weight 80.455 kg, Start date: 05/08/21 0:41:00 CORONER TRANSPORT TECHNICIAN, PRN Other -See Comment, 0 DilTIAZem 2022-0 [...] 00 Refill(s) oral capsule, extended release Sodium 2022-0 No 250 mL, Memoria Chloride 1-02 250 ml/hr, l 0.9% 06:41: Infuse [place] (Bolus) IV 00 Over: 1 hr, Route: IV, 250, Drug form: INJ, ONCE, Priority: STAT, Dosing Weight 80.455 kg, Start date: 05/08/21 0:41:00 CORONER TRANSPORT TECHNICIAN, PRN Other -See Comment, 0 DilTIAZem 2022-0 [...] 00 Refill(s) oral capsule, extended release Sodium 2022-0 No 250 mL, Memoria Chloride 1-02 250 ml/hr, l 0.9% 06:41: Infuse [place]ton (Bolus) IV 00 Over: 1 hr, Route: IV, 250, Drug form: INJ, ONCE, Priority: STAT, Dosing Weight 80.455 kg, Start date: 05/08/21 0:41:00 [employer]ONER [employer]SP[employer] TECHNICIAN, PRN Other -See Comment, 0 DilTIAZem 2022-0 Yes 360 mg = 1 Me moria (Eqv-Cardiz -02 cap, PO, l em CD) 360 06:41: Daily, 0 Her adan mg/24 hours 00 Refill(s) oral capsule, extended release DilTIAZem 2-0 Yes 360 mg = 1 Me moria (Eqv-Cardiz -02 cap, PO, l em CD) 360 06:41: Daily, 0 Her adan mg/24 hours 00 Refill(s) oral capsule, extended release metoprolol 2-0 Yes 25 mg = 1 Me moria tartrate 25 1-02 tab, PO, l mg oral 06:40: Daily, 0 Quentin n tablet 00 Refill(s) metoprolol 2-0 Yes 25 mg = 1 Me moria tartrate 25 1-02 tab, PO, l mg oral 06:40: Daily, 0 Quentin n tablet 00 Refill(s) metoprolol 2-0 Yes 25 mg = 1 Me moria tartrate 25 1-02 tab, PO, l mg oral 06:40: Daily, 0 Quentin n tablet 00 Refill(s) metoprolol 2-0 Yes 25 mg = 1 Me moria tartrate 25 1-02 tab, PO, l mg oral 06:40: Daily, 0 Quentin n tablet 00 Refill(s) metoprolol 2-0 Yes 25 mg = 1 Me moria tartrate 25 1-02 tab, PO, l mg oral 06:40: Daily, 0 Quentin n tablet 00 Refill(s) olmesartan 2022-0 Yes 5 mg = 1 Mem oria 5 mg oral 1-02 tab, PO, l tablet 06:39: Daily, 0 Daniel 00 Refill(s) olmesartan 2022-0 Yes 5 mg = 1 Mem oria 5 mg oral 1-02 tab, PO, l tablet 06:39: Daily, 0 Daniel 00 Refill(s) olmesartan 2021-0 Yes 5 mg = 1 Mem oria 5 mg oral -02 tab, PO, l tablet 06:39: Daily, 0 Refill(s) olmesartan 2021-0 Yes 5 mg = 1 Mem oria 5 mg oral -02 tab, PO, l tablet 06:39: Daily, 0 Refill(s) olmesartan 2021-0 Yes 5 mg = 1 Mem oria 5 mg oral -02 tab, PO, l tablet 06:39: Daily, 0 Refill(s) Dexilant 2021-0 Yes 60 mg, PO, Mem oria 1-02 Daily, 0 l 06:38: Refill(s) Dexilant 2021-0 Yes 60 mg, PO, Mem oria -02 Daily, 0 l 06:38: Refill(s) Dexilant 2021-0 Yes 60 mg, PO, Mem oria 1-02 Daily, 0 l 06:38: Refill(s) Dexilant 2021-0 Yes 60 mg, PO, Mem oria 1-02 Daily, 0 l 06:38: Refill(s) Dexilant 2021-0 Yes 60 mg, PO, Mem oria 1-02 Daily, 0 l 06:38: Refill(s) Dexilant 2021-0 Yes 60 mg, PO, Mem oria 1-02 Daily, 0 l 06:38: Refill(s) Dexilant 2021-0 Yes 60 mg, PO, Mem oria 1-02 Daily, 0 l 06:38: Refill(s) Dexilant 2021-0 Yes 60 mg, PO, Mem oria 1-02 Daily, 0 l 06:38: Refill(s) Dexilant 2021-0 Yes 60 mg, PO, Mem oria 1-02 Daily, 0 l 06:38: Refill(s) Dexilant 2021-0 Yes 60 mg, PO, Mem oria 1-02 Daily, 0 l 06:38: Refill(s) levothyroxi 2021-0 Yes 88 Memori a ne 88 mcg 1-02 microgram l (0.088 mg) 06:37: = 1 cap, Her adan oral 00 PO, Daily, capsule # 30 cap, 3 Refill(s) levothyroxi 0 Yes 88 Memori a ne 88 mcg 1-02 microgram l (0.088 mg) 06:37: = 1 cap, Her adan oral 00 PO, Daily, capsule # 30 cap, 3 Refill(s) levothyroxi 0 Yes 88 Memori a ne 88 mcg 1-02 microgram l (0.088 mg) 06:37: = 1 cap, Her adan oral 00 PO, Daily, capsule # 30 cap, 3 Refill(s) levothyroxi 0 Yes 88 Memori a ne 88 mcg 1-02 microgram l (0.088 mg) 06:37: = 1 cap, Her adan oral 00 PO, Daily, capsule # 30 cap, 3 Refill(s) levothyroxi 0 Yes 88 Memori a ne 88 mcg 1-02 microgram l (0.088 mg) 06:37: = 1 cap, Her adan oral 00 PO, Daily, capsule # 30 cap, 3 Refill(s) Aspirin 0 No Notes: Memoria 05-07 Take with l [...] Memoria 05-07 (Same as: l 17:38: Zofran) Delton 00 MEDICATION WASTE Product Size: 4 mg Product Wasted: ___ mg Zofran No Notes: Memoria 05-07 (Same as: l 17:38: Zofran) Delton 00 MEDICATION WASTE Product Size: 4 mg Product Wasted: ___ mg Zofran 0 No Notes: Memoria 05-07 (Same as: l 17:38: Zofran) Daniel MEDICATION WASTE Product Size: 4 mg Product Wasted: ___ mg Saline No Notes: Memoria Flush 0.9% 1- Same as: l 16:59: BD Daniel 00 Posiflush Sterile Saline No Notes: Memoria Flush 0.9% - Same as: l 16:59: BD [place] 00 Posiflush Sterile Saline 0 No Notes: Memoria Flush 0.9% - Same as: l 16:59: BD [place] 00 Posiflush Sterile Saline 0 No Notes: Memoria Flush 0.9% - Same as: l 16:59: BD Daniel 00 Posiflush Sterile Saline 0 No Notes: Memoria Flush 0.9% - Same as: l 16:59: BD Daniel 00 Posiflush Sterile sertraline Yes 200mg QD Take [...] 00 total) by Center mouth daily. sertraline 2021-0 Yes 200mg QD Take [address] [facility] (ZOLOFT) 6-14 tablets [facility] 100 MG 00:00: (200 mg Medical tablet 00 total) by Center mouth daily. sertraline 0 Yes 200mg QD Take [address] [facility] [...] 00 DAILY Center 112 MCG tablet fluticasone 0 Yes 1{puff} Q.5D Inhale [address] [facility] [address] -salmeterol 2-01 puff by [facility] (ADVAIR) 13:46: mouth via [facility] 250-50 46 inhaler 2 Center mcg/dose (two) diskus times inhaler daily. dexlansopra 0 Yes 60mg QD Take [address] [facility] zole 60 mg 2-01 by mouth [facility] capsule 13:46: daily. Medical 46 Center albuterol-i 0 Yes 2{puff} Inhale [address] pratropium 2-01 puffs by [facility] (COMBIVENT) 13:46: mouth via [facility] 18-103 46 inhaler Center mcg/actuati every 6 on inhaler (six) hours as needed for Wheezing. LORazepam 0 Yes .5mg Q.5D Take 0.[address] [facility] (ATIVAN) 2-01 mg by [facility] 0.5 MG 13:46: mouth 2 Medical tablet 46 (two) Center times daily. glycopyrrol 2020-0 Yes 1mg Q.5D Take [address] ate 2-01 by mouth 2 [facility] (ROBINUL) 1 13:46: (two) Medic al mg tablet 46 times Center daily. cycloSPORIN 2020-0 Yes 1[drp] Q.5D 1 drop 2 [facility] [...] puffs by [facility] (COMBIVENT) 13:46: mouth via [facility] 18-103 46 inhaler Center mcg/actuati every 6 on inhaler (six) hours as needed for Wheezing. LORazepam 0 Yes .5mg Q.5D Take 0.[address] (ATIVAN) 2-01 mg by [facility] 0.5 MG 13:46: mouth 2 Medical tablet 46 (two) Center times daily. glycopyrrol 2020-0 Yes 1mg Q.5D Take [address] ate 2-01 by mouth 2 [facility] (ROBINUL) 1 13:46: (two) Medic al mg tablet 46 times Center daily. cycloSPORIN 2020-0 Yes 1[drp] Q.5D 1 drop 2 [facility] [...] 2-01 by mouth [facility] capsule 13:46: daily. [facility] [address] [place] albuterol-i Yes 2{puff} Inhale [address] [facility] [...] 2-01 by mouth [facility] capsule 13:46: daily. [address] albuterol-i Yes 2{puff} Inhale [address] [...] times Medica l 0.05 % 46 daily. [place] ophthalmic emulsion diltiazem Yes 1{capsu QD Take [address] [facility] (CARDIZEM 2-01 le} capsule by Luke s CD) 360 MG 13:46: mouth Medica l 24 hr 46 daily. [place] capsule olmesartan Yes TAKE 1 [facility] (BENICAR) 5 1-22 TABLET BY Yahaira es MG tablet 00:00: MOUTH Medical 00 DAILY [place] olmesartan Yes TAKE 1 [facility] (BENICAR) 5 1-22 TABLET BY [facility]a es MG tablet 00:00: MOUTH Medical 00 DAILY [place] olmesartan Yes TAKE 1 [facility] (BENICAR) 5 1-22 TABLET BY [facility]a es MG tablet 00:00: MOUTH Medical 00 DAILY [place] olmesartan Yes TAKE 1 [facility] (BENICAR) 5 1-22 TABLET BY [place]ahaira es MG tablet 00:00: MOUTH Medical 00 DAILY [place] olmesartan Yes TAKE 1 [facility] (BENICAR) 5 1-22 TABLET BY Yahaira es MG tablet 00:00: MOUTH Medical 00 DAILY [place] olmesartan 3- No TAKE [address] [facility] (BENICAR) 5 1-22 03-17 TABLET BY Ani kes MG tablet 00:00: 00:00 MOUTH Medica l 00 :00 DAILY [place] metoprolol 0 Yes 25mg QD Take 25 [...] MG 24 hr 00 Center tablet rosuvastati [id number] Yes 10mg QD Take [address] [facility] (CRESTOR) 6-26 by mouth Luke s 10 MG 00:00: daily. Medical tablet 00 [place] rosuvastati Yes 10mg QD Take [address] n (CRESTOR) 6-26 by mouth Luke s 10 MG 00:00: daily. Medical tablet 00 [place] rosuvastati Yes 10mg QD Take [address] [facility] (CRESTOR) 6-26 by mouth Luke s 10 MG 00:00: daily. Medical tablet 00 [place] rosuvastati 0 Yes 10mg QD Take [address] n (CRESTOR) 6-26 by mouth Luke s 10 MG 00:00: daily. Medical tablet 00 [place] rosuvastati [id number] Yes 10mg QD Take [address] n (CRESTOR) 6-26 by mouth Luke s 10 MG 00:00: daily. Medical tablet 00 [place] rosuvastati 3- No 10mg QD Take [address] [facility] n (CRESTOR) 6-26 03-17 by mouth Yahaira es 10 MG 00:00: 00:00 daily. Medical tablet 00 :00 [place] erythromyci Yes APPLY THIN [facility] (ROMYCIN) 6-13 RIBBON TO Yahaira es 5 mg/gram 00:00: INTO BOTH Med ical (0.5 %) 00 EYES AT Center ophthalmic BEDTIME ointment erythromyci Yes APPLY THIN [facility] (ROMYCIN) 6-13 RIBBON TO Yahaira es 5 mg/gram 00:00: INTO BOTH Med ical (0.5 %) 00 EYES AT [place] ophthalmic BEDTIME ointment erythromyci Yes APPLY THIN [facility] (ROMYCIN) 6-13 RIBBON TO Y[facility]aira es 5 mg/gram 00:00: INTO BOTH Med ical (0.5 %) 00 EYES AT [place] ophthalmic BEDTIME ointment erythromyci Yes APPLY THIN [facility] (ROMYCIN) 6-13 RIBBON TO Yahaira es 5 mg/gram 00:00: INTO BOTH Med ical (0.5 %) 00 EYES AT [place] ophthalmic BEDTIME ointment erythromyci Yes APPLY THIN [facility] (ROMYCIN) 6-13 RIBBON TO Yahaira es 5 mg/gram 00:00: INTO BOTH Med ical (0.5 %) 00 EYES AT [place] ophthalmic BEDTIME ointment erythromyci 3- No APPLY THIN [facility] (ROMYCIN) 6-13 03-17 RIBBON TO Ani kes 5 mg/gram 00:00: 00:00 INTO BOTH Me dical (0.5 %) 00 :00 EYES AT [place] ophthalmic BEDTIME ointment Diltiazem Diltiazem No Diltiazem [...] MG MG MG Immunizations Ordered Immunization Filled Date Status Comments Sour ce Name Immunization Name Pfizer SARS-CoV-2 2020-07-04 Completed [facility] Vaccination (Purple 00:00:00 Geni MCCRAY Cap) [facility] SARS-CoV-2 2020-07-04 Completed [facility] Vacc[place] (Pur[place] 00:00[place]00 [place] Cap[place] [facility] SARS-CoV-2 2020-07-04 Completed [facility] Vaccination (Purple 00:00:00 [place] Cap) [facility] SARS-CoV-2 2020-07-04 Completed [facility] Vaccination (Purple 00:00:00 [place] Cap) [facility] SARS-CoV-2 2020-07-04 Completed [facility] Vaccination (Purple 00:00:00 [place] Cap) [facility] SARS-CoV-2 2020-07-04 Completed [facility] Vaccination (Purple 00:00:00 [place] Cap) [facility] SARS-CoV-2 2020-06-13 Completed [facility] Vaccination (Purple 00:00:00 [place] Cap) [facility] SARS-CoV-2 2020-06-13 Completed [facility] of Vaccination (Purple 00:00:00 [place] Cap) [facility] SARS-CoV-2 2020-06-13 Completed [facility] of Vaccination (Purple 00:00:00 [place] Cap) [facility] SARS-CoV-2 2020-06-13 Completed [facility] of Vaccination (Purple 00:00:00 [place] Cap) [facility] SARS-CoV-2 2020-06-13 Completed [facility] of Vaccination (Purple 00:00:00 [place] Cap) [facility] SARS-CoV-2 2020-06-13 Completed [facility] of Vaccination (Purple 00:00:00 [place] Cap) [facility] INFLUENZA QIV 2020-02-[address] [facility] ADJUVANTED PF IM 00:00:00 [facility] ([id number]) INFLUENZA QIV 2020-02-[address] [facility] ADJUVANTED PF IM 00:00:00 [facility] ([id number]) INFLUENZA QIV 2020-02-[address] [facility] ADJUVANTED PF IM 00:00:00 [facility] ([id number]) INFLUENZA QIV 2020-02-[address] [facility] ADJUVANTED PF IM 00:00:00 [facility] ([id number]) INFLUENZA QIV 2020-02-[address] [facility] ADJUVANTED PF IM 00:00:00 [facility] ([id number]) Influenza, High Dose 2019-03-[address] [facility] Seasonal 00:00:00 [facility] Influenza, High Dose 2019-03-[address] [facility] Seasonal 00:00:00 [facility] Influenza, High Dose 2019-03-[address] [facility] Seasonal 00:00:00 [facility] Influenza, High Dose 2019-03-[address] [facility] Seasonal 00:00:00 [facility] Influenza, High Dose 2019-03-[address] [facility] Seasonal 00:00:00 [facility] Pneumococcal 2015-05-[address] [facility] Conjugate (Prevnar) 00:00:00 [facility] Pneumococcal 2015-05-[address] [facility] Conjugate (Prevnar) 00:00:00 [facility] Pneumococcal 2015-05-[address] [facility] Conjugate (Prevnar) 00:00:00 [facility] Pneumococcal 2015-05-[address] [facility] Conjugate (Prevnar) 00:00:00 [facility] Pneumococcal 2015-05-[address] [facility] Conjugate (Prevnar) 00:00:00 [facility] Influenza TIV (IM) 2014-02-[address] [facility] 00:00:00 [facility] Influenza TIV (IM) 2014-02-[address] [facility] 00:00:00 [facility] Influenza TIV (IM) 2014-02-[address] [facility] 00:00:00 [facility] Influenza TIV (IM) 2014-02-[address] [facility] 00:00:00 [facility] Influenza TIV (IM) 2014-02-[address] [facility] 00:00:00 [facility] Pneumococcal 2012-05-[address] [facility] Polysaccharide 00:00:00 Medical Ce nter (Pneumovax) Pneumococcal 2012-05-[address] [facility] Polysaccharide 00:00:00 Medical Ce nter (Pneumovax) Pneumococcal 2012-05-[address] [facility] Polysaccharide 00:00:00 Medical Ce nter (Pneumovax) Pneumococcal 2012-05-[address] [facility] Polysaccharide 00:00:00 Medical Ce nter (Pneumovax) Pneumococcal 2012-05-[address] [facility] Medical Ce nter (Pneumovax) Pfizer SARS-CoV-2 Unknown Completed [facility] Vaccination ([facility] Pfizer SARS-CoV-2 Unknown Completed [facility] of Vaccination ([facility]) [facility] Influenza TIV (IM) Unknown Completed [facility] Pneumococcal Unknown Completed [facility] Conjugate (Prevnar) [facility] Pneumococcal Unknown Completed [facility] Polysaccharide Medical Ce nter (Pneumovax) Influenza, High Dose Unknown Completed [facility] Seasonal [facility] INFLUENZA QIV Unknown Completed [facility] ADJUVANTED PF [facility] ([id number]) Vital Signs Vital Name Observation Time Observation Value Comments Source WEIGHT 2022-07-20 06:00:00 67.586 kg HEIGHT 2022-07-19 22:00:00 160 cm WEIGHT 2022-07-20 06:00:00 67.586 kg HEIGHT 2022-07-19 22:00:00 160 cm WEIGHT 2022-07-20 06:00:00 67.586 kg HEIGHT 2022-07-19 22:00:00 160 cm temperature 2022-02-10 13:15:00 97.5 [degF] Pulse weight 2022-02-10 13:15:00 140.1 [lb_av] Pulse height 2022-02-10 13:15:00 63 [in_i] Pulse heart rate 2022-02-10 13:15:00 62 /min Pulse oximetry 2022-02-10 13:15:00 96 % Pulse bmi 2022-02-10 13:15:00 24.81 kg/m2 Pulse blood pressure 2022-02-10 13:15:00 135 mm[Hg] Pulse systolic blood pressure 2022-02-10 13:15:00 65 mm[Hg] Pulse diastolic HEIGHT 2020-06-07 11:45:00 160 cm WEIGHT 2020-06-07 11:45:00 80.831 kg Systolic blood 2022-07-21 15:33:00 110 mm[Hg] [facility] Diastolic blood 2022-07-21 15:33:00 59 mm[Hg] [facility] Heart rate 2022-07-21 15:33:00 76 /min [facility] Body temperature 2022-07-21 15:33:00 36.11 Jigna [facility] Respiratory rate 2022-07-21 15:33:00 16 /min [facility] Oxygen saturation in 2022-07-21 15:33:00 97 /min [facility] Arterial blood by Medical Ce nter Pulse oximetry Body weight 2022-07-20 06:00:00 67.586 kg [facility] BMI 2022-07-20 06:00:00 26.39 kg/m2 [facility] Body height 2022-07-19 22:00:00 160 cm [facility] Heart Rate 2022-03-03 12:14:42 [facility] Systolic (mm Hg) 2022-03-03 12:14:33 Mario rial Daniel Diastolic (mm Hg) 2022-03-03 12:14:33 Mem orial Daniel Temperature Oral (F) 2022-03-03 12:14:05 97.6 F [facility] [place] Temperature Oral (F) 2022-03-02 12:58:33 97.4 F [facility] Height 2022-02-15 01:23:00 5 [ft_i] [facility] Weight 2022-02-15 01:23:00 [facility] [place] BMI Calculated 2022-02-15 01:23:00 Memori al Daniel Heart Rate 2022-02-14 20:31:50 [facility] Systolic (mm Hg) 2022-02-14 20:31:46 Mario rial Daniel Diastolic (mm Hg) 2022-02-14 20:31:46 Mem orial [place] Temperature Oral (F) 2022-02-14 20:31:39 98.8 F [facility] Heart Rate 2022-02-13 10:16:21 [facility] [place] Systolic (mm Hg) 2022-02-13 10:16:13 Mario rial [place] Diastolic (mm Hg) 2022-02-13 10:16:13 Mem orial Daniel Heart Rate 2022-02-13 10:16:13 [facility] [place] Temperature Oral (F) 2022-02-13 10:15:27 98.1 F [facility] [place] Heart Rate 2022-02-13 05:18:18 [facility] [place] Systolic (mm Hg) 2022-02-13 05:18:13 Mario rial Daniel Diastolic (mm Hg) 2022-02-13 05:18:13 Mem orial [place] Temperature Oral (F) 2022-02-13 05:18:00 97.9 F [facility] Respitory Rate 2022-02-13 05:18:00 Memori al Daniel Temperature Oral (F) 2022-02-13 05:17:27 97.9 F [facility] Systolic (mm Hg) 2022-02-13 02:05:17 Mario rial [place] Diastolic (mm Hg) 2022-02-13 02:05:17 Mem orial [place] Respitory Rate 2022-02-13 02:05:00 Memori al Daniel Respitory Rate 2022-02-12 21:50:19 [facility] al [place] Height 2022-02-12 18:10:00 5 [ft_i] [facility] [place] Weight 2022-02-12 18:10:00 [facility] BMI Calculated 2022-02-12 18:10:00 [facility] [place] Respitory Rate 2022-02-12 15:57:00 [facility] [place] Systolic (mm Hg) 2022-02-12 15:57:00 Mario rial Daniel Diastolic (mm Hg) 2022-02-12 15:57:00 Mem orial [place] Temperature Oral (F) 2022-02-12 15:57:00 97.5 F [facility] Respitory Rate 2022-02-12 14:12:00 Memori al Daniel Systolic (mm Hg) 2022-02-12 14:12:00 Mario rial [place] Diastolic (mm Hg) 2022-02-12 14:12:00 Mem orial Daniel Weight 2022-02-12 12:27:00 [facility] [place] Systolic (mm Hg) 2022-02-12 12:27:00 Mario rial Daniel Diastolic (mm Hg) 2022-02-12 12:27:00 Mem orial Daniel Heart Rate 2022-02-12 12:27:00 [facility] Respitory Rate 2022-02-12 12:27:00 [facility] [place] Temperature Oral (F) 2022-02-12 12:27:00 97.6 F [facility] [place] Temperature Oral (F) 2022-02-08 20:53:00 98.3 F [facility] [place] Heart Rate 2022-02-08 20:53:00 [facility] Respitory Rate 2022-02-08 20:53:00 [facility] [place] Systolic (mm Hg) 2022-02-08 20:53:00 Mario rial Daniel Diastolic (mm Hg) 2022-02-08 20:53:00 Mem orial Daniel Temperature Oral (F) 2022-02-08 18:00:00 98.2 F [facility] [place] Heart Rate 2022-02-08 18:00:00 [facility] [place] Systolic (mm Hg) 2022-02-08 18:00:00 Mario rial [place] Diastolic (mm Hg) 2022-02-08 18:00:00 Mem orial Daniel Height 2022-02-08 16:06:00 160.02 cm [facility] BMI Calculated 2022-02-08 16:06:00 [facility] [place] Weight 2022-02-08 16:06:00 [facility] Systolic (mm Hg) 2022-02-08 16:06:00 Mario rial [place] Diastolic (mm Hg) 2022-02-08 16:06:00 Mem orial [place] Heart Rate 2022-02-08 16:06:00 [facility] Respitory Rate 2022-02-08 16:06:00 [facility] [place] Temperature Oral (F) 2022-02-08 16:06:00 98.2 F [facility] Heart Rate 2021-05-08 17:54:01 [facility] Systolic (mm Hg) 2021-05-08 17:53:19 Mario rial Daniel Diastolic (mm Hg) 2021-05-08 17:53:19 Mem orial [place] Heart Rate 2021-05-08 17:53:19 [facility] [place] Heart Rate 2021-05-08 13:22:39 [facility] Respitory Rate 2021-05-08 13:22:39 Memori al Daniel Systolic (mm Hg) 2021-05-08 13:22:05 Mario rial Daniel Diastolic (mm Hg) 2021-05-08 13:22:05 Mem orial Daniel Temperature Oral (F) 2021-05-08 13:21:52 98.1 F [facility] [place] Systolic (mm Hg) 2021-05-08 10:37:12 Mario rial [place] Diastolic (mm Hg) 2021-05-08 10:37:12 Mem orial Daniel Temperature Oral (F) 2021-05-08 10:36:31 97.7 F [facility] [place] Temperature Oral (F) 2021-05-08 06:15:00 98.4 F [facility] [place] Height 2021-05-08 06:09:00 160.02 cm [facility] [place] Weight 2021-05-08 06:09:00 [facility] [place] BMI Calculated 2021-05-08 06:09:00 [facility] [place] Height 2021-05-07 16:57:00 160.02 cm [facility] BMI Calculated 2021-05-07 16:57:00 [facility] [place] Weight 2021-05-07 16:57:00 [facility] [place] Systolic (mm Hg) 2021-05-07 16:57:00 Mario rial Daniel Diastolic (mm Hg) 2021-05-07 16:57:00 Mem orial Daniel Heart Rate 2021-05-07 16:57:00 [facility] Respitory Rate 2021-05-07 16:57:00 [facility] [place] Temperature Oral (F) 2021-05-07 16:57:00 98.9 F [facility] Procedures Procedure Date / Time Performing Clinician Source Performed IRON, TIBC, % SAT. 2022-07-21 05:22:00 [facility]yda [facility]-21 05:22:00 Briseyda, Maddy Hyunna [facility] TSH 2022-07-21 05:22:00 Mare Sandoval [facility] SARS-COV2/RT-PCR ([facility] & 2022-07-20 18:59:00 Briseyda, Maddy Hyunna [facility] REF LABS) [facility] URINALYSIS W/ MICROSCOPIC 2022-07-20 12:32:00 [facility] RAPID DRUG SCREEN, URINE 2022-07-20 12:32:00 [facility] TSH/FREE T4 IF INDICATED 2022-07-20 04:26:00 [facility] VITAMIN B12 2022-07-20 04:26:00 [facility] HEMOGLOBIN A1C 2022-07-20 04:26:00 [facility] LIPID PANEL 2022-07-20 04:26:00 [facility] 2022-07-20 04:26:00 [facility] CBC W/PLT COUNT & AUTO 2022-07-20 04:26:00 [facility] COMPREHENSIVE METABOLIC 2022-07-20 04:26:00 [facility] MAGNESIUM 2022-07-20 04:26:00 [facility] PHOSPHORUS 2022-07-20 04:26:00 [facility] T4, FREE 2022-07-20 04:26:00 [facility] CBC W/PLT COUNT & AUTO 2022-07-20 04:26:00 [facility] ECG 12-LEAD 2022-07-20 02:28:22 [facility] ECG 12-LEAD 2022-07-20 02:28:22 Unknown, Hl7 Doctor [facility] XR CHEST 1 VIEW PORTABLE / 2022-07-20 01:41:00 [facility] Catheterization of vein [facility] [place] 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 Abdominal wall hernia [facility] procedure Plan of Care Planned Activity Planned Date Details Comments Source Future Scheduled 2023-07-[address] [facility] Test 00:00[facility]00 [facility] Scre[facility] (12+) [code = Tobacco Cessation Counseling and Screening (12+)] Future Scheduled 2023-01-[address] [facility] Test 00:00:00 (#1) [code = Medical Center Influenza Vaccine (#1)] Future Scheduled 2022-09-29 COVID-19 Vaccination [facility] [place] Test 10:56:09 (3 - Pfizer series) MD Oteor son Cancer [code = COVID-19 Center Vaccination (3 - Pfizer series)] Future Scheduled 2022-05-07 FALLS RISK SCREENING CHI [...] WELLNESS (YEAR 3 +)] Future Scheduled 2021-06-[address] [...] (12+)] Future Scheduled 2021-05-25 COVID-19 Vaccination [facility] Test 06:41:22 (3 - Booster for MD Max Cancer Pfizer series) [code Center = COVID-19 Vaccination (3 - Booster for Pfizer series)] Future Scheduled 2021-05-07 FALLS RISK SCREENING [facility] Test 00:00:00 [code = FALLS RISK Medical C enter SCREENING] Future Scheduled 2021-04-06 COVID-19 VACCINE (4 - [facility] Test 00:00:00 Booster for Pfizer Medical C enter series) [code = COVID-19 VACCINE (4 - Booster for Pfizer series)] Future Scheduled 2019-08-28 DXA SCAN [code = [...] Test 00:00:00 SCAN] Medical Center Future Scheduled 1989 SHINGLES VACCINES ([address] [facility] Test 00:00:00 of 2) [code = [facility] SHINGLES VACCINES (1 of 2)] Future Scheduled 1989 SHINGLES VACCINES ([address] [facility] Test 00:00:00 of 2) [code = [facility] SHINGLES VACCINES (1 of 2)] Future Scheduled 1989 SHINGLES VACCINES ([address] [facility] Test 00:00:00 of 2) [code = [facility] SHINGLES VACCINES (1 of 2)] Future Scheduled 1989 SHINGLES VACCINES ([address] [facility] Test 00:00:00 of 2) [code = [facility] SHINGLES VACCINES (1 of 2)] Future Scheduled 1989 SHINGLES VACCINES ([address] [facility] Test 00:00:00 of 2) [code = [facility] SHINGLES VACCINES (1 of 2)] Future Scheduled 1958 DTAP/TDAP/TD VACCINES [facility] Test 00:00:00 (1 - Tdap) [code = Medical C enter DTAP/TDAP/TD VACCINES (1 - Tdap)] Future Scheduled 1958 SHINGLES VACCINES ([address] [facility] Test 00:00:00 of 2) [code = [facility] SHINGLES VACCINES (1 of 2)] [...] Facility Department ID 2022-05-17 Outpatient [facility] [id number] [place] 16:17:35 [id number] [facility] 2022-05-06 Outpatient 3 [id number] ENCPL [facility] [id number] [facility] 15:00:50 [facility] [place] 2022-05-05 Outpatient 3 [id number] ENCPL REF [id number] [facility] 11:13:10 [facility] [place] 2022-04-10 Outpatient [facility] [id number] [place] 08:17:45 [id number] [facility] 2022-04-07 Outpatient [facility] [id number] [place] 15:08:10 [id number] [facility] 2022-03-24 Outpatient Rafael, PULSE PULSE [id number] Pulse 08:39:04 Bert 2022-03-16 Outpatient Rageh, PULSE PULSE [id number] Pulse 09:45:02 Nourebobbyh 2022-02-10 Outpatient Rafael, PULSE PULSE [id number] Pulse 13:25:02 Bert 2022-02-09 Outpatient Rafael, PULSE PULSE [id number] Pulse 09:09:01 Bert 2021-12-19 Outpatient PULSE PULSE [id number] Pulse 11:00:03 2022-07-19 2022-07-21 Inpatient DUNG, [facility] [id number] SLE 21:44:00 18:09:00 [facility] 2022-07-19 2022[facility]07-21 [facility] [id number] 21:44:00 18:09:00 Encounter Maddy Rain [facility] 2022-07-20 2022-07-20 Orders [facility] [id number] 00:00:00 00:00:00 Only [facility] 2022-07-20 2022-07-[address] [facility] [id number] [facility] 00:[facility] 00:00:00 [facility] 2022-02-15 2022-03-03 [facility] [id number] Memoria 00:57:00 19:40:00 [facility] 2022-02-15 2022-03-03 Inpatient nullFlavo [facility] [id number] Memoria 00:57:00 19:40:00 Rehab r [place] 02 l [facility] Quentin n Rehabilitat ion 2022-02-14 2022-03-03 Outpatient [facility] [id number] 19:57:00 14:40:00 [facility] 2022-02-14 2022-03-03 Inpatient [facility] [id number] [facility] 19:57:00 14:40:00 [facility] 2022-02-12 2022-02-14 Inpatient nullFlavo [facility] [id number] Memoria 17:26:00 23:56:00 r [place] [address] [facility] 2022-02-12 2022-02-14 Inpatient nullFlavo [facility] [id number] Memoria 17:26:00 23:56:00 r [place] 82 [facility] [place] 2022-02-12 2022-02-14 Outpatient Loki SL S [id number] 12:26:00 18:56:00 Micki 81 Kat[place] 2022-02-12 2022-02-14 Inpatient U LOKI, [facility] [id number] FB 12:26:00 18:56:00 MICKI 2022-02-12 2022-02-12 Emergency nullFlavo [facility] [id number] Memoria 12:25:03 16:30:00 r Daniel 01 [facility] 2022-02-12 2022-02-12 Emergency nullFlavo [facility] [id number] Memoria 12:25:03 16:30:00 r Daniel 01 [facility] 2022-02-12 2022-02-12 Outpatient Brandon [facility] [id number] 12:26:00 12:26:00 82 2022-02-12 2022-02-[address] [id number] 07:25:03 11:30:00 Paco Ollie Seferino 2022-02-12 2022-02-12 Emergency E TELMA LEIGHA BL [id number] BL 07:25:00 11:30:00 PACO 2022-02-12 2022-02-12 (TEL) PULSE PULSE [id number] Pu lse 00:00:00 00:00:00 2022-02-10 2022-02-10 [id number] Est PULSE PULSE [id number] Pulse 00:00:00 00:00:00 Patient 2022-02-08 2022-02-08 [facility] [id number] Memoria 16:05:43 21:02:00 r Daniel 00 l [facility] 2022-02-08 2022-02-08 [facility] [id number] Memoria 16:05:43 21:02:00 r Daniel 00 l [facility] 2022-02-08 2022-02-08 Outpatient Jodie, MHSE MHSE [id number] 11:05:43 16:02:00 Jennyfer Verma 2022-02-08 2022-02-08 Emergency E JODIE, MHSE MHSE [id number] MH 11:05:00 16:02:00 JENNYFER [facility] 2021-10-30 2021-10-30 [facility] [id number] 00:00:00 00:00:00 [facility] 2021-05-27 2021-05-27 [facility] [id number] 00:00:00 00:00:00 [facility] 2021-05-11 2021-05-11 [facility] [id number] 00:00:00 00:00:00 [facility] 2021-05-08 2021-05-08 [facility]atio [facility] [id number] Memoria 05:47:00 20:00:00 n renetta Sanchez l [facility] 2021-05-08 2021-05-08 [facility] [id number] Memoria 05:47:00 20:00:00 n renetta Sanchez l [facility] 2021-05-07 2021-05-08 Outpatient E SHAHRIAR CABRERASE [address] 23:47:00 14:00:00 [facility] 2021-05-07 2021-05-08 Outpatient Teqwimdebora, MHSE MHSE [id number] 23:47:00 14:00:00 Quan 2021-05-07 2021-05-08 [facility] [id number] Memoria 16:51:35 05:27:[address] [facility] 2021-05-07 2021-05-08 [facility] [id number] Memoria 16:51:35 05:27:[address] [facility] 2021-05-07 2021-05-07 Outpatient Ruthann Coronado MHPL MHPL [id number] 10:51:35 23:27:00 Q 2021-05-07 2021-05-07 Outpatient Ruthann Coronado MHPL MHPL [id number] 10:51:35 23:27:00 Q 2021-05-07 2021-05-07 Emergency E RUTHANN CORONADO MHBL MHBL [id number] MHBL 10:51:00 23:27:00 2021-04-21 2021-04-21 [id number] 00:00:00 00:00:00 [facility] 2021-02-17 2021-02-17 [id number] 00:00:00 00:00:00 [facility] 2020-12-06 2020-12-[address] [facility] [id number] 00:00:00 00:00:00 [facility] 2020-07-04 2020-07-04 Outpatient EL MDA MDA [id number] 11:38:37 12:01:58 Urinaldo jack 2020-06-13 2020-06-13 Outpatient EL MDA MDA [id number] 11:40:51 12:01:01 Uri jack 2020-06-07 2020-06-[address] [facility] [id number] 00:00:00 00:00:00 [facility] 2019-07-17 2019-07-[address] [facility] [id number] 00:00:00 00:00:00 [id number] [facility] 2017-04-18 2017-05-18 OP Therapy nullFlavo SMR [id number] Memoria 18:15:00 05:59:00 Patients r [place] 06 l [facility] 2017-04-18 2017-05-18 OP Therapy nullFl[facility] SMR [id number] Memoria 18:15:00 05:59:00 Patients r [place] 06 l [facility] 2017-04-18 2017-05-17 Outpatient [facility], 2.16.840. [id number]. 3 [id number] 12:15:00 23:59:00 Carson Abernathy [id number] 5.57 2017-03-14 2017-04-13 OP Therapy nullFlavo SMR [id number] Memoria 17:52:00 05:59:00 Patients r [place] 05 l Shukri Bahena [facility] 2017-03-14 2017-04-13 OP Therapy nullFlavo SMR [id number] Memoria 17:52:00 05:59:00 Patients r [place] 05 l Shukri Bahena [facility] 2017-03-14 2017-04-12 [facility] 2.16.840. 2.16.840.1. 3 [id number] 11:52:00 23:59:00 Carson Abernathy [id number] 5.57 2017-02-09 2017-03-11 OP Therapy nullFlavo SMR [id number] Memoria 19:02:00 04:59:00 Patients r [place] 04 l Shukri Bahena [facility] 2017-02-09 2017-03-11 OP Therapy nullFlavo SMR [id number] Memoria 19:02:00 04:59:00 Patients r [place] 04 l Shukri Bahena [facility] 2017-02-09 2017-03-10 Outpatient [facility], 2.16.840. 2.16.840.1. 3 [id number] 14:02:00 23:59:00 Carson Abernathy [id number] 5.57 Results Test Description Test Time Test Comments Results Result Comments Source TSH 2022-07-21 11:34:47 Test Item Value Reference Range Interpretation Comme nts THYROID STIMULATING HORMONE (MALGORZATA) (test code = 772) 15.55 6 uIU/mL 0.350-4.940 H Motorman/Woman ID - JFUGTMALMEDVS1832-15-43 06:26:16 Test Item Value Reference Range Interpretation Comments FERRITIN (MALGORZATA) (test code = 64.55 ng/mL 5.00-275.00 361) Motorman/Woman ID Bonita MCMAHON, TIBC, % SAT. (WITHOUT FERRITIN)2022-07-21 06:04:28 Test Item Value Reference Range Interpretation Comments IRON (BEAKER) (test code = 547) 59.0 ug/dL 40.0-160.0 TOTAL IRON BINDING CAPACITY 219 ug/dL 250-450 L (BEAKER) (test code = 769) IRON % SATURATION (2) (BEAKER) 27 % 20-55 (test code = 2590) Motorman/Woman JEANETTE MESSINA-CoV2/RT-PCR (Asymptomatic ONLY)2022-07-20 21:08:51 Test Item Value Reference Interpretation Comments Range SARS-COV2/RT-PCR Negative Negative The SARS-Co V-2 (test code = target nucleic 16865-8) acids are not detected in thi s specimen. Negat navi results do not preclude SARS-C oV-2 infection and should not be u sed as the sole bas is for patient management decisions. Nega tive results must be combined with clinical observations, patient history , and epidemiolog ical information. A false negative result may occu r if a specimen is improperly collected, transported or handled. This S ARS CoV-2 test is a rapid, real-tariq e RT-PCR test intended for th e qualitative detection of nucleic acid fr om SARS-CoV-2 in a nasopharyngeal swab specimen collec kalie from individual s suspected of COVID-19 by the ir healthcare provider. ELIE (test code = This test has been ELIE) authorized by FDA under an EUA for use by authorized laboratories. This test is only authorized for the duration of the declaration that circumstances exist justifying the authorization of emergency use of in vitro diagnostic tests for detection and/or diagnosis of COVID-19 under Section 564(b)(1) of the Federal Food, Drug and Cosmetic Act, 21 U.S.C. § 360bbb-3(b)(1), unless the authorization is terminated or revoked sooner. Fact Sheet for Healthcare Providers: https://www.Drybar.Zipidee/Documents/Xp ert%20Xpress%20SAR S%20CoV-2/Fact%20S heets/302-8722%20S ARS-COV-2%20HEALTH CARE%20PROVIDERS%2 0FACT%20SHEET.pdf Fact Sheet for Healthcare Patients: https://www.FatSkunk/Documents/Xp ert%20Xpress%20SAR S%20CoV-2/Fact%20S heets/302-3801%20S ARS-COV-2%20PATIEN T%20FACT%20SHEET.p df Lab Interpretation Normal (test code = 41326-7) [facility]2022-07-20 21:08:51 Test Item Value Reference Range Interpretation Comments SARS-COV2/RT-PCR Negative Negative The SARS-Co V-2 target (test code = nucleic acids a re not 4469109) detected in thi s specimen. Negative result s do not preclude SARS-C oV-2 infection and s hould not be used as the paola e basis for patient managem ent decisions. Nega tive results must be combine d with clinical observ ations, patient history , and epidemiological information. A false negativ e result may occur if a spec imen is improperly tom ected, transported or handled. This SARS CoV-2 test is a rapid, real-time RT-PC R test intended for th e qualitative detection of nu cleic acid from SARS-CoV-2 in a nasopharyngeal swab specimen collected from individuals suspected of CO VID-19 by their healthcar e provider. This test has been authorized by FDA under an EUA for use by authorized laboratories. This test is only authorized for the duration of the declaration that circumstances exist justifying the authorization of emergency use of in vitro diagnostic tests for detection and/or diagnosis of COVID-19 under Section 564(b)(1) of the Federal Food, Drug and Cosmetic Act, 21 U.S.C. 360bbb-3(b)(1), unless the authorization is terminated or revoked sooner. Fact Sheet for Healthcare Providers: https://www.CustomerXPs Software m/Documents/Xpert%20Xpress%20SARS%20CoV-2/Fact%20Sheets/3023802%11CZTZ-WTK-9%20 HEALTHCARE%20PROVIDERS%20FACT%20SHEET.pdf Fact Sheet for Healthcare Patients: https://www.Dashbid/Documents/Xpert%20Xp ress%20SARS%20CoV-2/Fact%20Sheets/302-3801%06WFNZ-NYN-9%20PATIENT%20FACT%20SHEET .pdfRapid drug screen, [id number] 13:21:23 Test Item Value Reference Range Interpretation Comments Barbiturate Screen Negative Negative (test code = 14995-9) Benzodiazepine Screen Negative Negative (test code = 24135-7) Cocaine (Metab.) Negative Negative Screen (test code = 3397-7) Methadone Screen (test Negative Negative code = 25245-4) Opiate Screen (test Negative Negative code = 29343-1) Cannabinoid Screen Negative Negative (test code = 98816-4) Amph/Methamph Screen Negative Negative (test code = 54270-5) Phencyclidine Screen Negative Negative (test code = 24383-3) pH, UA (test code = 6.5 5.0-8.0 5803-2) ELIE (test code = ELIE) DRUG CUTOFF CONC.Cocaine 300 ng/mL Cannabinoid 50 ng/mLBenzodiazepine 200 ng/mLBarbiturate 200 ng/mLPhencyclidine 25 ng/mLOpiate 300 ng/mLMethadone 300 ng/mLAmphetamine/ 1000 ng/mL Methamphetamine This assay provides an unconfirmed qualitative test result for the clinical management of patients in emergency situations. Chain of custody not maintained. Some cejf-cpy-oqtenuk medications, as well as adulterants, may cause inaccurate results. Clinical correlation should be applied. A more comprehensive drug screen or confirmation of a detected drug may be performed upon request.Motorman/Woman ID - BSOperator ID - [auto] Lab Interpretation Normal (test code = 72683-2) [facility] [id number] 13:21:23 Test Item Value Reference Range Interpretation Comments BARBITURATE URINE (BEAKER) (test Negative Negative code = 725) BENZODIAZEPINE SCREEN URINE (BEAKER) Negative Negative (test code = 726) COCAINE (METAB.) SCREEN (BEAKER) Negative Negative (test code = 1164) METHADONE SCREEN (BEAKER) (test code Negative Negative = 1436) OPIATE SCREEN URINE (BEAKER) (test Negative Negative code = 734) CANNABINOID SCREEN URINE (BEAKER) Negative Negative (test code = 727) AMPH/METHAMPH SCREEN (BEAKER) (test Negative Negative code = 1438) PHENCYCLIDINE SCREEN URINE (BEAKER) Negative Negative (test code = 608) PH UA (BEAKER) (test code = 467) 6.5 5.0-8.0 DRUG CUTOFF CONC.Cocaine 300 ng/mL Cannabinoid 50 ng/mLBenzodiazepine 200 ng/mLBarbiturate 200 ng/mLPhencyclidine 25 ng/mLOpiate 300 ng/mLMethadone 300 ng/mLAmphetamine/ 1000 ng/mL MethamphetamineThis assay provides an unconfirmed qualitative test result for the clinical management of patients in emergency situations. Chain of custody not maintained. Some ovvs-tfu-uzbpmae medications, as well as adulterants, may cause inaccurate results. Clinical correlation should be applied. A more comprehensive drug screen or confirmation of a detected drug may be performed upon request.Motorman/Woman ID - BSOperator ID - [auto] Urinalysis w/Tvvqyzjirxw1057-81-77 12:56:54 Test Item Value Reference Range Interpretation Comments Color, UA (test code Yellow = 5778-6) Clarity, UA (test Clear code = 5767-9) Specific [place], UA 1.045 1.001-1.035 H (test code = 5811-5) pH, UA (test code = 6.5 5.0-8.0 5803-2) Protein, UA (test 10 mg/dL Negative A code = 62567-4) Glucose, UA (test Negative Negative code = 365) Ketones, UA (test Negative Negative code = 2514-8) Bilirubin, UA (test Negative Negative code = 87136-0) Blood, UA (test code Negative Negative = 22887-5) Nitrite, UA (test Negative Negative code = 5802-4) Leukocytes, UA (test Negative Negative code = 5799-2) Urobilinogen, UA 0.2 0.2-1.0 (test code = 15813-1) RBC, UA (test code = 2 See_Comment [Autom ated 59812-8) message] The system which generated this result transmit kalie reference range : /HPF. The reference range was not used to interpret this result as normal/abnormal . WBC, UA (test code = 1 See_Comment [Autom ated 5821-4) message] The system which generated this result transmit kalie reference range : /HPF. The reference range was not used to interpret this result as normal/abnormal . Squam Epithel, UA 3 See_Comment [Automate d (test code = 64861-9) messag e] The system which generated this result transmit kalie reference range : /HPF. The reference range was not used to interpret this result as normal/abnormal . Casts (test code = 2 See_Comment [Automat ed 9842-6) message] The system which generated this result transmit kalie reference range : /LPF. The reference range was not used to interpret this result as normal/abnormal . Crystals, Urine (test Rare None Seen A code = 34289-5) Specimen Source (test Urine, Clean code = 2795) Catch ELIE (test code = ELIE) Motorman/Woman ID - [auto]Motorman/Woman ID - tech Lab Interpretation Abnormal (test code = 26086-9) [facility]/ [id number] 12:56:54 Test Item Value Reference Range Interpretation Comments COLOR (BEAKER) (test code Yellow = 470) CLARITY (BEAKER) (test Clear code = 469) SPECIFIC GRAVITY UA 1.045 1.001-1.035 H (BEAKER) (test code = 468) PH UA (BEAKER) (test code 6.5 5.0-8.0 = 467) PROTEIN UA (BEAKER) (test 10 mg/dL Negative A code = 464) GLUCOSE UA (BEAKER) (test Negative Negative code = 365) KETONES UA (BEAKER) (test Negative Negative code = 371) BILIRUBIN UA (BEAKER) Negative Negative (test code = 462) BLOOD UA (BEAKER) (test Negative Negative code = 461) NITRITE UA (BEAKER) (test Negative Negative code = 465) LEUKOCYTE ESTERASE UA Negative Negative (BEAKER) (test code = 466) UROBILINOGEN UA (BEAKER) 0.2 0.2-1.0 (test code = 463) RBC UA (BEAKER) (test code 2 /HPF = 519) WBC UA (BEAKER) (test code 1 /HPF = 520) SQUAMOUS EPITHELIAL 3 /HPF (BEAKER) (test code = 516) CASTS (BEAKER) (test code 2 /LPF = 1579) CRYSTALS, URINE (BEAKER) Rare None Seen A (test code = 1521) SOURCE(BEAKER) (test code Urine, Clean Catch = 2795) Motorman/Woman ID - [auto]Motorman/Woman ID - techHEMOGLOBIN [id number] 12:09:07 Test Item Value Reference Range Interpretation Comments HEMOGLOBIN A1C 5.4 % See_Comment [Automated m essage] ELECTROPHORESIS (MALGORZATA) The system which (test code = 3811) generated this result transmitted ref erence range: <=5.6%. The reference range was not used to int erpret this result as normal/abnormal . "The A1c is measured using a NGSP-certified method. HbA1c value equal to or greater than 6.5% as thediagnosis cutoff for diabetes. An HbA1c value of 5.7- 6.4% indicates increased risk for diabetes (prediabetes)."Motorman/Woman ID - ADMOperator ID - [id number] 10:58:53 Test Item Value Reference Range Interpretation Comments RPR SCREEN (MALGORZATA) (test code = Nonreactive Nonreactive 420) RAD, CHEST, 1 VIEW, NON [id number] 07:37:00Reason for exam:->R/o infectionShould this be performed at the bedside?->Yes [facility] 1940 Sex: FFINAL REPORT CLINICAL HISTORY: R/o infection TECHNIQUE: 1 view of the chest. COMPARISON: 10/20/2013 IMPRESSION: There is mild prominence of the pulmonary vascular. There is left lung base consolidation with blunting of the costophrenic angle. The cardiomediastinal silhouette is magnified by technique with a new loop recorder. Signed: Parth Umaña [facility] Hospitalort Verified Date/Time: 07/20/2022 07:37:48 T4, [id number] 06:24:21 Test Item Value Reference Range Interpretation Comments FREE T4 (BEAKER) (test code = 655) 0.95 ng/dL 0.70-1.48 Motorman/Woman ID - ISRRAEL GVITAMIN [id number] 06:24:21 Test Item Value Reference Range Interpretation Comments VITAMIN B12 (BEAKER) (test code = 483 pg/mL 213-816 774) Motorman/Woman ID - ISRRAEL GTSH/FREE T4 IF [id number] 05:29:16 Test Item Value Reference Range Interpretation Comments THYROID STIMULATING HORMONE 14.445 uIU/mL 0.350-4.940 H (BEAKER) (test code = 772) Motorman/Woman ID - RFQZUANPPPN9292-68-07 05:28:40 Test Item Value Reference Range Interpretation Comments MAGNESIUM (BEAKER) (test code = 2.0 mg/dL 1.6-2.6 627) Motorman/Woman ID - ISRRAEL [id number] 05:28:40 Test Item Value Reference Range Interpretation Comments PHOSPHORUS (BEAKER) (test code = 3.0 mg/dL 2.3-4.7 604) Motorman/Woman ID - ISRRAEL GLIPID [id number] 05:28:40 Test Item Value Reference Range Interpretation Comments TRIGLYCERIDES (BEAKER) (test code = 42 mg/dL 540) CHOLESTEROL (BEAKER) (test code = 88 mg/dL 631) HDL CHOLESTEROL (BEAKER) (test code 37 mg/dL = 976) LDL CHOLESTEROL CALCULATED (BEAKER) 43 mg/dL (test code = 633) Triglyceride Reference Range: Low Risk <150 Borderline 150-199 High Risk 200- 499 Very High Risk >=500Cholesterol Reference Range: Low Risk <200 Borderline 200-239 High Risk >240HDL Cholesterol Reference Range: Low Risk >=60 High Risk <40LDL Cholesterol Reference Range: Optimal <100 Near Optimal 100-129 Borderline 130-159 High 160-189 Very High >=190 Motorman/Woman ID - ISRRAEL GCOMPREHENSIVE METABOLIC [id number] 05:28:39 Test Item Value Reference Range Interpretation Comments TOTAL PROTEIN 5.4 gm/dL 6.0-8.3 L (BEAKER) (test code = 770) ALBUMIN (BEAKER) 3.1 g/dL 3.5-5.0 L (test code = 1145) ALKALINE 35 U/L 40-150 L PHOSPHATASE (BEAKER) (test code = 346) BILIRUBIN TOTAL 0.3 mg/dL 0.2-1.2 (BEAKER) (test code = 377) SODIUM (BEAKER) 141 meq/L 136-145 (test code = 381) POTASSIUM (BEAKER) 3.8 meq/L 3.5-5.1 (test code = 379) CHLORIDE (BEAKER) 113 meq/L 98-107 H (test code = 382) CO2 (BEAKER) (test 22 meq/L 22-29 code = 355) BLOOD UREA 16 mg/dL 7-21 NITROGEN (BEAKER) (test code = 354) CREATININE 0.86 mg/dL 0.57-1.25 (BEAKER) (test code = 358) GLUCOSE RANDOM 87 mg/dL 70-105 (BEAKER) (test code = 652) CALCIUM (BEAKER) 8.5 mg/dL 8.4-10.2 (test code = 697) AST (SGOT) 24 U/L 5-34 (BEAKER) (test code = 353) ALT (SGPT) 18 U/L 6-55 (BEAKER) (test code = 347) EGFR (BEAKER) 67 Interpretatio n of eGFR (test code = 1092) mL/min/1.[address] age Description sq m Result G1 Phyllis l or high >=90 G2 Mildly decreased 60-89 G3a Mildl y to moderately 45-5 9 G3b Moderately to s everely 30-44 G4 Severl y decreased 15-29 G5 Kidne y failure <15Reported eGF R is based on the CKD-EPI 2021 equation that d oes not use a race coefficientEsti mated GFR is not as accur ate as Creatinine Debi nguyen in predicting glom erular filtration rate . Estimated GFR is not appl icable for dialysis patien ts Motorman/Woman ID - ISRRAEL GCBC W/PLT COUNT & AUTO [id number] 04:50:26 Test Item Value Reference Range Interpretation Comments WHITE BLOOD CELL COUNT (BEAKER) 4.7 K/ L 3.5-10.5 (test code = 775) RED BLOOD CELL COUNT (BEAKER) 3.14 M/ L 3.93-5.22 L (test code = 761) HEMOGLOBIN (BEAKER) (test code = 9.9 GM/DL 11.2-15.7 L 410) HEMATOCRIT (BEAKER) (test code = 30.7 % 34.1-44.9 L 411) MEAN CORPUSCULAR VOLUME (BEAKER) 98 fL 79-95 H (test code = 753) MEAN CORPUSCULAR HEMOGLOBIN 31.5 pg 25.6-32.2 (BEAKER) (test code = 751) MEAN CORPUSCULAR HEMOGLOBIN CONC 32.2 GM/DL 32.2-35.5 (BEAKER) (test code = 752) RED CELL DISTRIBUTION WIDTH 14.5 % 11.7-14.4 H (BEAKER) (test code = 412) PLATELET COUNT (BEAKER) (test 133 K/CU MM 150-450 L code = 756) MEAN PLATELET VOLUME (BEAKER) 11.3 fL 9.4-12.3 (test code = 754) NUCLEATED RED BLOOD CELLS 0 /100 WBC 0-0 (BEAKER) (test code = 413) NEUTROPHILS RELATIVE PERCENT 61 % (BEAKER) (test code = 429) LYMPHOCYTES RELATIVE PERCENT 26 % (BEAKER) (test code = 430) MONOCYTES RELATIVE PERCENT 9 % (BEAKER) (test code = 431) EOSINOPHILS RELATIVE PERCENT 3 % (BEAKER) (test code = 432) BASOPHILS RELATIVE PERCENT 1 % (BEAKER) (test code = 437) NEUTROPHILS ABSOLUTE COUNT 2.83 K/ L 1.56-6.13 (BEAKER) (test code = 670) LYMPHOCYTES ABSOLUTE COUNT 1.19 K/ L 1.18-3.74 (BEAKER) (test code = 414) MONOCYTES ABSOLUTE COUNT (BEAKER) 0.44 K/ L 0.24-0.36 H (test code = 415) EOSINOPHILS ABSOLUTE COUNT 0.15 K/ L 0.04-0.36 (BEAKER) (test code = 416) BASOPHILS ABSOLUTE COUNT (BEAKER) 0.04 K/ L 0.01-0.08 (test code = 417) IMMATURE GRANULOCYTES-RELATIVE 0.20 % 0.00-1.00 PERCENT (BEAKER) (test code = 2801) [id number] 11:20:00 Test Item Value Reference Range Interpretation Comments Glucose Lvl (test code = Glucose Lvl) 83 70-99 [facility]Gixt[facility]ccXOBPSIMLR0277-15-22 11:20:00 Test Item Value Reference Range Interpretation Comments BUN (test code = BUN) 21 7-22 [facility]WNNTWV4040[facility]56-28 11:20:00 Test Item Value Reference Range Interpretation Comments Creatinine Lvl (test code = Creatinine 1.00 0.50-1.40 Lvl) [facility] SoutheastGtilikjXZWKNUNGF7969-09-78 11:20:00 Test Item Value Reference Range Interpretation Comments Sodium Lvl (test code = Sodium Lvl) 140 135-145 [facility] Sou[id number] 11:20:00 Test Item Value Reference Range Interpretation Comments Potassium Lvl (test code = Potassium 4.1 3.5-5.1 Lvl) [facility] CenterVdxuuclQXFYYGTOA5770-74-88 11:20:00 Test Item Value Reference Range Interpretation Comments Chloride Lvl (test code = Chloride Lvl) 111 95-109 [facility] SoutheastJxizdjkDYUXEISWF0435-09-38 11:20:00 Test Item Value Reference Range Interpretation Comments CO2 (test code = CO2) 23 24-32 [facility] SoutheastIhoxmywVEDSMMZIA2524-20-18 11:20:00 Test Item Value Reference Range Interpretation Comments Calcium Lvl (test code = Calcium Lvl) 8.6 8.5-10.5 [facility] SoutheastWkkzpzdLSKQPVLKS0555-36-26 11:20:00 Test Item Value Reference Range Interpretation Comments AGAP (test code = AGAP) 10.1 10.0-20.0 [facility] CenterYzvducuQQTKAWKZA7114-86-10 11:20:00 Test Item Value Reference Range Interpretation Comments eGFR (test code = eGFR) 56 [facility]MmoalbtJPNAMFALLQ9213-56-55 11:20:00 Test Item Value Reference Range Interpretation Comments Segs (test code = Segs) 58.9 45.0-75.0 [facility]intDrldighCATOYXGJQB3687-03-09 11:20:00 Test Item Value Reference Range Interpretation Comments Lymphocytes (test code = Lymphocytes) 22.9 20.0-40.0 [facility]intXlqgvptACKNKFIBUF8074-76-21 11:20:00 Test Item Value Reference Range Interpretation Comments Monocytes (test code = Monocytes) 12.6 2.0-12.0 [place] [id number] 11:20:00 Test Item Value Reference Range Interpretation Comments Eosinophils (test code = Eosinophils) 4.3 <=4.0 [place] [id number] 11:20:00 Test Item Value Reference Range Interpretation Comments Basophils (test code = Basophils) 1.3 <=1.0 [place] [id number] 11:20:00 Test Item Value Reference Range Interpretation Comments Neutrophils # (test code = Neutrophils 2.9 1.5-8.1 #) [facility]X7381[facility] 11:20:00 Test Item Value Reference Range Interpretation Comments Lymphocytes # (test code = Lymphocytes 1.1 1.0-5.5 #) [place] [id number] 11:20:00 Test Item Value Reference Range Interpretation Comments Monocytes # (test code = Monocytes #) 0.6 <=0.8 [place] [address]-10-28 11:20:00 Test Item Value Reference Range Interpretation Comments Eosinophils # (test code = Eosinophils 0.2 <=0.5 #) [facility]EpgsjzkDIROWYQAPR9041-26-37 11:20:00 Test Item Value Reference Range Interpretation Comments Basophils # (test code = Basophils #) 0.1 <=0.2 [place] [address]-10-28 11:20:00 Test Item Value Reference Range Interpretation Comments WBC X 10x3 (test code = WBC X 10x3) 5.0 3.7-10.4 [place] [id number] 11:20:00 Test Item Value Reference Range Interpretation Comments RBC X 10x6 (test code = RBC X 10x6) 3.89 4.20-5.40 [place] [id number] 11:20:00 Test Item Value Reference Range Interpretation Comments Hgb (test code = Hgb) 12.1 12.0-16.0 [place] [address]-10-28 11:20:00 Test Item Value Reference Range Interpretation Comments Hct (test code = Hct) 35.8 36.0-48.0 [place] 861682-10-28 11:20:00 Test Item Value Reference Range Interpretation Comments MCV (test code = MCV) 92.0 80.0-98.0 [facility] CenterTxiwjgdPSAKQASKIU3035-72-96 11:20:00 Test Item Value Reference Range Interpretation Comments MCH (test code = MCH) 31.0 pg 27.0-31.0 [facility]LgumxtjDVJFGVNSAC2080-88-94 11:20:00 Test Item Value Reference Range Interpretation Comments MCHC (test code = MCHC) 33.7 32.0-36.0 [facility] CenterQehnnybABNCNXXIZF9541-13-89 11:20:00 Test Item Value Reference Range Interpretation Comments RDW (test code = RDW) 13.4 11.5-14.5 [place] 861682-10-28 11:20:00 Test Item Value Reference Range Interpretation Comments Platelet (test code = Platelet) 139 133-450 [facility] CenterOzukqieFNKGXDJFWN3787-47-56 11:20:00 Test Item Value Reference Range Interpretation Comments MPV (test code = MPV) 9.8 7.4-10.4 [facility] CenterJfyhtcjEUFEONIEI4768-42-39 11:20:00 Test Item Value Reference Range Interpretation Comments Glucose Lvl (test code = Glucose Lvl) 83 70-99 [facility] CenterVurgrxzCIGXQNFXM1134-79-08 11:20:00 Test Item Value Reference Range Interpretation Comments BUN (test code = BUN) 21 7-22 [facility] CenterFktlqolNNLANSYYA3317-80-64 11:20:00 Test Item Value Reference Range Interpretation Comments Creatinine Lvl (test code = Creatinine 1.00 0.50-1.40 Lvl) [facility] CenterLtfyynvOKSGKZJND9377-76-33 11:20:00 Test Item Value Reference Range Interpretation Comments Sodium Lvl (test code = Sodium Lvl) 140 135-145 [facility] CenterIkgoekvXILMWEWKZ9543-33-03 11:20:00 Test Item Value Reference Range Interpretation Comments Potassium Lvl (test code = Potassium 4.1 3.5-5.1 Lvl) [facility] CenterPbutjtdTXPLTRHSL0256-24-96 11:20:00 Test Item Value Reference Range Interpretation Comments Chloride Lvl (test code = Chloride Lvl) 111 95-109 [place] 059282-10-28 11:20:00 Test Item Value Reference Range Interpretation Comments CO2 (test code = CO2) 23 24-32 [facility] CenterLrpcqjbHQMRWMAGT3086-55-54 11:20:00 Test Item Value Reference Range Interpretation Comments Calcium Lvl (test code = Calcium Lvl) 8.6 8.5-10.5 [facility] CenterYhsqomzLXAXKFJGK7014-03-55 11:20:00 Test Item Value Reference Range Interpretation Comments AGAP (test code = AGAP) 10.1 10.0-20.0 [place] 059282-10-28 11:20:00 Test Item Value Reference Range Interpretation Comments eGFR (test code = eGFR) 56 [facility] CenterMmiioxxOYXFIXSWVM3649-95-91 11:20:00 Test Item Value Reference Range Interpretation Comments Segs (test code = Segs) 58.9 45.0-75.0 [facility] CenterNchopqqFVBQDEBDUB7357-69-50 11:20:00 Test Item Value Reference Range Interpretation Comments Lymphocytes (test code = Lymphocytes) 22.9 20.0-40.0 [facility] CenterTufarlfZQIGIAVOAO1184-41-63 11:20:00 Test Item Value Reference Range Interpretation Comments Monocytes (test code = Monocytes) 12.6 2.0-12.0 [facility] CenterRriwrkxMXVBHOOQDG4457-82-74 11:20:00 Test Item Value Reference Range Interpretation Comments Eosinophils (test code = 4.3 See_Comment [A utomated message] The Eosinophils) system which nerated this result tra nsmitted reference range : <=4.0. The reference r fermín was not used to int erpret this result as normal/abnormal . [facility] CenterWaikqapJXSHLDGDNQ7185-94-47 11:20:00 Test Item Value Reference Range Interpretation Comments Basophils (test code = 1.3 See_Comment [Aut omated message] The Basophils) system which ge nerated this result tra nsmitted reference range : <=1.0. The reference r fermín was not used to int erpret this result as normal/abnormal . [facility] CenterQiejdizZGBFTGVSO7874-36-55 11:20:00 Test Item Value Reference Range Interpretation Comments Glucose Lvl (test code = Glucose Lvl) 83 70-99 [facility] CenterXtkluxgUIIOUJSJJ4286-45-13 11:20:00 Test Item Value Reference Range Interpretation Comments BUN (test code = BUN) 21 7-22 [facility] CenterOhzrkvvDZIYFKEYE2807-19-93 11:20:00 Test Item Value Reference Range Interpretation Comments Creatinine Lvl (test code = Creatinine 1.00 0.50-1.40 Lvl) [facility] CenterLybgagnJSPGKVDND2204-04-12 11:20:00 Test Item Value Reference Range Interpretation Comments Sodium Lvl (test code = Sodium Lvl) 140 135-145 [facility] CenterZnisayiESWMZSIHL5460-37-40 11:20:00 Test Item Value Reference Range Interpretation Comments Potassium Lvl (test code = Potassium 4.1 3.5-5.1 Lvl) [facility] CenterAcsrdstZEZANFCOTP0533-27-39 11:20:00 Test Item Value Reference Range Interpretation Comments Neutrophils # (test code = Neutrophils 2.9 1.5-8.1 #) [facility] CenterNdmqalcYGHZTMRXB0083-02-40 11:20:00 Test Item Value Reference Range Interpretation Comments Chloride Lvl (test code = Chloride Lvl) 111 95-109 [facility] CenterMeuwrqnMURPWZWFO2509-20-51 11:20:00 Test Item Value Reference Range Interpretation Comments CO2 (test code = CO2) 23 24-32 [facility] CenterDvgbqvnBAXJEJMDJ2102-79-98 11:20:00 Test Item Value Reference Range Interpretation Comments Calcium Lvl (test code = Calcium Lvl) 8.6 8.5-10.5 [facility] CenterRijpkjsPLQIEBIAY1108-16-93 11:20:00 Test Item Value Reference Range Interpretation Comments AGAP (test code = AGAP) 10.1 10.0-20.0 [facility] CenterGkdcmhwZVVSCUJMN6029-03-83 11:20:00 Test Item Value Reference Range Interpretation Comments eGFR (test code = eGFR) 56 [facility] CenterJjuglvvEXQGHFZQJR8600-88-16 11:20:00 Test Item Value Reference Range Interpretation Comments Segs (test code = Segs) 58.9 45.0-75.0 [facility] CenterQlzmnkjBHHFWREACC6991-12-82 11:20:00 Test Item Value Reference Range Interpretation Comments Lymphocytes (test code = Lymphocytes) 22.9 20.0-40.0 [place] [address]-10-28 11:20:00 Test Item Value Reference Range Interpretation Comments Monocytes (test code = Monocytes) 12.6 2.0-12.0 [place] 861682-10-28 11:20:00 Test Item Value Reference Range Interpretation Comments Eosinophils (test code = 4.3 See_Comment [A utomated message] The Eosinophils) system which ge nerated this result tra nsmitted reference range : <=4.0. The reference r fermín was not used to int erpret this result as normal/abnormal . [place] 861682-10-28 11:20:00 Test Item Value Reference Range Interpretation Comments Basophils (test code = 1.3 See_Comment [Aut omated message] The Basophils) system which ge nerated this result tra nsmitted reference range : <=1.0. The reference r fermín was not used to int erpret this result as normal/abnormal . [place] 861682-10-28 11:20:00 Test Item Value Reference Range Interpretation Comments Lymphocytes # (test code = Lymphocytes 1.1 1.0-5.5 #) [place] 861682-10-28 11:20:00 Test Item Value Reference Range Interpretation Comments Neutrophils # (test code = Neutrophils 2.9 1.5-8.1 #) [place] 861682-10-28 11:20:00 Test Item Value Reference Range Interpretation Comments Lymphocytes # (test code = Lymphocytes 1.1 1.0-5.5 #) [place] [address]-10-28 11:20:00 Test Item Value Reference Range Interpretation Comments Monocytes # (test code 0.6 See_Comment [Aut omated message] The = Monocytes #) system which generated this result tra nsmitted reference range : <=0.8. The reference r fermín was not used to int erpret this result as normal/abnormal . [facility] CenterAkooafnFOXGTIMXDI4742-84-45 11:20:00 Test Item Value Reference Range Interpretation Comments Eosinophils # (test code 0.2 See_Comment [A utomated message] The = Eosinophils #) system [facility] generated this result tra nsmitted reference range : <=0.5. The reference r fermín was not used to int erpret this result as normal/abnormal . [place] 861682-10-28 11:20:00 Test Item Value Reference Range Interpretation Comments Basophils # (test code 0.1 See_Comment [Aut omated message] The = Basophils #) system which generated this result tra nsmitted reference range : <=0.2. The reference r fermín was not used to int erpret this result as normal/abnormal . [place] 861682-10-28 11:20:00 Test Item Value Reference Range Interpretation Comments WBC X 10x3 (test code = WBC X 10x3) 5.0 3.7-10.4 [facility] CenterNwkcsdfLQCXIKHNBX8189-93-08 11:20:00 Test Item Value Reference Range Interpretation Comments RBC X 10x6 (test code = RBC X 10x6) 3.89 4.20-5.40 [place] 861682-10-28 11:20:00 Test Item Value Reference Range Interpretation Comments Hgb (test code = Hgb) 12.1 12.0-16.0 [place] 861682-10-28 11:20:00 Test Item Value Reference Range Interpretation Comments Hct (test code = Hct) 35.8 36.0-48.0 [place] [address]-10-28 11:20:00 Test Item Value Reference Range Interpretation Comments MCV (test code = MCV) 92.0 80.0-98.0 [place] 861682-10-28 11:20:00 Test Item Value Reference Range Interpretation Comments Monocytes # (test code 0.6 See_Comment [Aut omated message] The = Monocytes #) system which generated this result tra nsmitted reference range : <=0.8. The reference r fermín was not used to int erpret this result as normal/abnormal . [facility] CenterJnbacdtAHRDRPOFBX4798-13-78 11:20:00 Test Item Value Reference Range Interpretation Comments MCH (test code = MCH) 31.0 pg 27.0-31.0 [facility] CenterIbatruxDIVCSNTKVO6383-84-47 11:20:00 Test Item Value Reference Range Interpretation Comments MCHC (test code = MCHC) 33.7 32.0-36.0 [place] 861682-10-28 11:20:00 Test Item Value Reference Range Interpretation Comments RDW (test code = RDW) 13.4 11.5-14.5 [place] 861682-10-28 11:20:00 Test Item Value Reference Range Interpretation Comments Platelet (test code = Platelet) 139 133-450 [place] 861682-10-28 11:20:00 Test Item Value Reference Range Interpretation Comments MPV (test code = MPV) 9.8 7.4-10.4 [place] 861682-10-28 11:20:00 Test Item Value Reference Range Interpretation Comments Eosinophils # (test code 0.2 See_Comment [A utomated message] The = Eosinophils #) system whic h generated this result tra nsmitted reference range : <=0.5. The reference r fermín was not used to int erpret this result as normal/abnormal . [facility] CenterZjhebxzQSAYYQPAOE1920-07-93 11:20:00 Test Item Value Reference Range Interpretation Comments Basophils # (test code 0.1 See_Comment [Aut omated message] The = Basophils #) system which generated this result tra nsmitted reference range : <=0.2. The reference r fermín was not used to int erpret this result as normal/abnormal . [facility] CenterYgoijmvCHKOMIONCV3625-45-00 11:20:00 Test Item Value Reference Range Interpretation Comments WBC X 10x3 (test code = WBC X 10x3) 5.0 3.7-10.4 [facility] CenterBiydgzfTCULMNZKVT6099-25-14 11:20:00 Test Item Value Reference Range Interpretation Comments RBC X 10x6 (test code = RBC X 10x6) 3.89 4.20-5.40 [facility] CenterYjdexnzVCSTDHYRVU5068-26-12 11:20:00 Test Item Value Reference Range Interpretation Comments Hgb (test code = Hgb) 12.1 12.0-16.0 [facility] CenterUkugckjTYDOVTTONU8740-25-25 11:20:00 Test Item Value Reference Range Interpretation Comments Hct (test code = Hct) 35.8 36.0-48.0 [facility] CenterNtxenljQFMKXEAQRU0243-15-70 11:20:00 Test Item Value Reference Range Interpretation Comments MCV (test code = MCV) 92.0 80.0-98.0 [facility] CenterYcjjgxrVIWKKDNPPL4039-49-02 11:20:00 Test Item Value Reference Range Interpretation Comments MCH (test code = MCH) 31.0 pg 27.0-31.0 [facility] CenterViepwwjMHFLEGYKNW8314-05-23 11:20:00 Test Item Value Reference Range Interpretation Comments MCHC (test code = MCHC) 33.7 32.0-36.0 [facility] CenterPviewjaQLTVTOYNOF9565-14-93 11:20:00 Test Item Value Reference Range Interpretation Comments RDW (test code = RDW) 13.4 11.5-14.5 [facility] CenterEuajzixPARLDLEFOS3090-56-75 11:20:00 Test Item Value Reference Range Interpretation Comments Platelet (test code = Platelet) 139 133-450 [place] 861682-10-28 11:20:00 Test Item Value Reference Range Interpretation Comments MPV (test code = MPV) 9.8 7.4-10.4 [place] 059282-10-28 11:20:00 Test Item Value Reference Range Interpretation Comments Glucose Lvl (test code = Glucose Lvl) 83 70-99 [place] 059282-10-28 11:20:00 Test Item Value Reference Range Interpretation Comments BUN (test code = BUN) 21 7-22 [place] 059282-10-28 11:20:00 Test Item Value Reference Range Interpretation Comments Creatinine Lvl (test code = Creatinine 1.00 0.50-1.40 Lvl) [facility] CenterOsudmjsACNHVOQPH2675-79-08 11:20:00 Test Item Value Reference Range Interpretation Comments Sodium Lvl (test code = Sodium Lvl) 140 135-145 [facility] CenterOqxuyidGXCMVDONY2104-52-46 11:20:00 Test Item Value Reference Range Interpretation Comments Potassium Lvl (test code = Potassium 4.1 3.5-5.1 Lvl) [facility] CenterEfimkgrZXBBNPRJZ5827-60-76 11:20:00 Test Item Value Reference Range Interpretation Comments Chloride Lvl (test code = Chloride Lvl) 111 95-109 [facility] CenterKjeekgwXMTHFSTFD4467-77-09 11:20:00 Test Item Value Reference Range Interpretation Comments CO2 (test code = CO2) 23 24-32 [facility] CenterWcgrabiICRHFNYGE6187-00-37 11:20:00 Test Item Value Reference Range Interpretation Comments Calcium Lvl (test code = Calcium Lvl) 8.6 8.5-10.5 [facility] CenterBtwawnlSROCEMBDK1395-06-18 11:20:00 Test Item Value Reference Range Interpretation Comments AGAP (test code = AGAP) 10.1 10.0-20.0 [place] [address]-10-28 11:20:00 Test Item Value Reference Range Interpretation Comments eGFR (test code = eGFR) 56 [facility] CenterDipxuuuPRMWORCDSS0054-66-03 11:20:00 Test Item Value Reference Range Interpretation Comments Segs (test code = Segs) 58.9 45.0-75.0 [place] 861682-10-28 11:20:00 Test Item Value Reference Range Interpretation Comments Lymphocytes (test code = Lymphocytes) 22.9 20.0-40.0 [place] [address]-10-28 11:20:00 Test Item Value Reference Range Interpretation Comments Monocytes (test code = Monocytes) 12.6 2.0-12.0 [place] [address]-10-28 11:20:00 Test Item Value Reference Range Interpretation Comments Eosinophils (test code = 4.3 See_Comment [A utomated message] The Eosinophils) system which ge nerated this result tra nsmitted reference range : <=4.0. The reference r fermín was not used to int erpret this result as normal/abnormal . [place] [address]-10-28 11:20:00 Test Item Value Reference Range Interpretation Comments Basophils (test code = 1.3 See_Comment [Aut omated message] The Basophils) system which ge nerated this result tra nsmitted reference range : <=1.0. The reference r fermín was not used to int erpret this result as normal/abnormal . [place] 861682-10-28 11:20:00 Test Item Value Reference Range Interpretation Comments Neutrophils # (test code = Neutrophils 2.9 1.5-8.1 #) [place] [address]-10-28 11:20:00 Test Item Value Reference Range Interpretation Comments Lymphocytes # (test code = Lymphocytes 1.1 1.0-5.5 #) [place] [address]-10-28 11:20:00 Test Item Value Reference Range Interpretation Comments Monocytes # (test code 0.6 See_Comment [Aut omated message] The = Monocytes #) system which generated this result tra nsmitted reference range : <=0.8. The reference r fermín was not used to int erpret this result as normal/abnormal . [place] [address]-10-28 11:20:00 Test Item Value Reference Range Interpretation Comments Eosinophils # (test code 0.2 See_Comment [A utomated message] The = Eosinophils #) system whic h generated this result tra nsmitted reference range : <=0.5. The reference r fermín was not used to int erpret this result as normal/abnormal . [place] [address]-10-28 11:20:00 Test Item Value Reference Range Interpretation Comments Basophils # (test code 0.1 See_Comment [Aut omated message] The = Basophils #) system which generated this result tra nsmitted reference range : <=0.2. The reference r fermín was not used to int erpret this result as normal/abnormal . [facility] CenterUejbaqzXHHDBQZPLF2641-50-93 11:20:00 Test Item Value Reference Range Interpretation Comments WBC X 10x3 (test code = WBC X 10x3) 5.0 3.7-10.4 [facility] CenterGyhfmslZKZVLCLPTA7755-01-96 11:20:00 Test Item Value Reference Range Interpretation Comments RBC X 10x6 (test code = RBC X 10x6) 3.89 4.20-5.40 [facility] CenterAnwmnypYSWMHWHDKG0582-29-08 11:20:00 Test Item Value Reference Range Interpretation Comments Hgb (test code = Hgb) 12.1 12.0-16.0 [facility] CenterEywmxskOMYHVEAJUX9821-06-50 11:20:00 Test Item Value Reference Range Interpretation Comments Hct (test code = Hct) 35.8 36.0-48.0 [facility] CenterYyoxwsxISFYDPAIWW1349-91-50 11:20:00 Test Item Value Reference Range Interpretation Comments MCV (test code = MCV) 92.0 80.0-98.0 [facility] CenterVsfjaknSAAEBYUIKF5112-37-14 11:20:00 Test Item Value Reference Range Interpretation Comments MCH (test code = MCH) 31.0 pg 27.0-31.0 [facility] CenterHarucpyTQTCBAVGQS6225-68-84 11:20:00 Test Item Value Reference Range Interpretation Comments MCHC (test code = MCHC) 33.7 32.0-36.0 [facility] CenterHtzmgiyWKJSJNHEMY7096-79-59 11:20:00 Test Item Value Reference Range Interpretation Comments RDW (test code = RDW) 13.4 11.5-14.5 [place] 861682-10-28 11:20:00 Test Item Value Reference Range Interpretation Comments Platelet (test code = Platelet) 139 133-450 [facility] CenterSxfwgaeMBWGSCHEEF1976-40-85 11:20:00 Test Item Value Reference Range Interpretation Comments MPV (test code = MPV) 9.8 7.4-10.4 [facility] CenterLsirqjaHCGPTRZOV7424-78-19 11:20:00 Test Item Value Reference Range Interpretation Comments Glucose Lvl (test code = Glucose Lvl) 83 70-99 [place] 059282-10-28 11:20:00 Test Item Value Reference Range Interpretation Comments BUN (test code = BUN) 21 7-22 [facility] CenterNedyvmcNWGZREYYU3762-60-50 11:20:00 Test Item Value Reference Range Interpretation Comments Creatinine Lvl (test code = Creatinine 1.00 0.50-1.40 Lvl) [facility] CenterJfpknasJETSQNHSQ8016-32-01 11:20:00 Test Item Value Reference Range Interpretation Comments Sodium Lvl (test code = Sodium Lvl) 140 135-145 [facility] CenterPjbvabgNIVNEWZMV7101-00-95 11:20:00 Test Item Value Reference Range Interpretation Comments Potassium Lvl (test code = Potassium 4.1 3.5-5.1 Lvl) [facility] CenterMihzcjjKFDNVRZMF0259-25-97 11:20:00 Test Item Value Reference Range Interpretation Comments Chloride Lvl (test code = Chloride Lvl) 111 95-109 [facility] CenterPhjbxigRLSTIQZGO9086-74-79 11:20:00 Test Item Value Reference Range Interpretation Comments CO2 (test code = CO2) 23 24-32 [facility] CenterGholrloPSVXSSOGF0587-16-80 11:20:00 Test Item Value Reference Range Interpretation Comments Calcium Lvl (test code = Calcium Lvl) 8.6 8.5-10.5 [facility] CenterEonnlqvBFMBQJTVE0391-03-45 11:20:00 Test Item Value Reference Range Interpretation Comments AGAP (test code = AGAP) 10.1 10.0-20.0 [facility] CenterDwvnclrBUHAYJRMV6590-06-74 11:20:00 Test Item Value Reference Range Interpretation Comments eGFR (test code = eGFR) 56 [facility] CenterMrmhopqVJHDXMNNPR5132-49-09 11:20:00 Test Item Value Reference Range Interpretation Comments Segs (test code = Segs) 58.9 45.0-75.0 [facility] CenterWhqhgabHEGUMJNTWZ3589-05-27 11:20:00 Test Item Value Reference Range Interpretation Comments Lymphocytes (test code = Lymphocytes) 22.9 20.0-40.0 [facility] CenterHxkzhqzFKYEHCAPWT0041-02-72 11:20:00 Test Item Value Reference Range Interpretation Comments Monocytes (test code = Monocytes) 12.6 2.0-12.0 [facility] CenterIlqwxlvSENSLNBZIU5832-29-07 11:20:00 Test Item Value Reference Range Interpretation Comments Eosinophils (test code = 4.3 See_Comment [A utomated message] The Eosinophils) system which ge nerated this result tra nsmitted reference range : <=4.0. The reference r fermín was not used to int erpret this result as normal/abnormal . [facility] CenterSlzkqltLWDVJOATXR4306-15-16 11:20:00 Test Item Value Reference Range Interpretation Comments Basophils (test code = 1.3 See_Comment [Aut omated message] The Basophils) system which ge nerated this result tra nsmitted reference range : <=1.0. The reference r fermín was not used to int erpret this result as normal/abnormal . [place] 861682-10-28 11:20:00 Test Item Value Reference Range Interpretation Comments Neutrophils # (test code = Neutrophils 2.9 1.5-8.1 #) [place] 861682-10-28 11:20:00 Test Item Value Reference Range Interpretation Comments Lymphocytes # (test code = Lymphocytes 1.1 1.0-5.5 #) [place] 861682-10-28 11:20:00 Test Item Value Reference Range Interpretation Comments Monocytes # (test code 0.6 See_Comment [Aut omated message] The = Monocytes #) system which generated this result tra nsmitted reference range : <=0.8. The reference r fermín was not used to int erpret this result as normal/abnormal . [facility] CenterIkqhthxQDIQQPMVWN5999-72-24 11:20:00 Test Item Value Reference Range Interpretation Comments Eosinophils # (test code 0.2 See_Comment [A utomated message] The = Eosinophils #) system [facility] generated this result tra nsmitted reference range : <=0.5. The reference r fermín was not used to int erpret this result as normal/abnormal . [facility] CenterOascsrmXZPAWVQHFV6643-12-57 11:20:00 Test Item Value Reference Range Interpretation Comments Basophils # (test code 0.1 See_Comment [Aut omated message] The = Basophils #) system which generated this result tra nsmitted reference range : <=0.2. The reference r fermín was not used to int erpret this result as normal/abnormal . [place] 861682-10-28 11:20:00 Test Item Value Reference Range Interpretation Comments WBC X 10x3 (test code = WBC X 10x3) 5.0 3.7-10.4 [facility] CenterNiadtsgJHWWZTKPQC4469-35-24 11:20:00 Test Item Value Reference Range Interpretation Comments RBC X 10x6 (test code = RBC X 10x6) 3.89 4.20-5.40 [facility] CenterLxxojpmFCYJLQSVLQ0125-43-45 11:20:00 Test Item Value Reference Range Interpretation Comments Hgb (test code = Hgb) 12.1 12.0-16.0 [facility] CenterUbbuiweIYTOTHBFRE8507-36-55 11:20:00 Test Item Value Reference Range Interpretation Comments Hct (test code = Hct) 35.8 36.0-48.0 [facility] CenterIalrymvBCDWIPEXHK2983-11-87 11:20:00 Test Item Value Reference Range Interpretation Comments MCV (test code = MCV) 92.0 80.0-98.0 [facility] CenterHsitppbTJRHHSOBLW9617-18-64 11:20:00 Test Item Value Reference Range Interpretation Comments MCH (test code = MCH) 31.0 pg 27.0-31.0 [facility] CenterScazztcYLDVCEPVXU6362-26-66 11:20:00 Test Item Value Reference Range Interpretation Comments MCHC (test code = MCHC) 33.7 32.0-36.0 [facility] CenterLisquwgKLWLTGHOJN5523-92-92 11:20:00 Test Item Value Reference Range Interpretation Comments RDW (test code = RDW) 13.4 11.5-14.5 [facility] CenterUuaafufANZIYXVCVH9901-32-14 11:20:00 Test Item Value Reference Range Interpretation Comments Platelet (test code = Platelet) 139 133-450 [facility] CenterHpqmcckDOJNDITKBP9725-35-63 11:20:00 Test Item Value Reference Range Interpretation Comments MPV (test code = MPV) 9.8 7.4-10.4 [facility] CenterSpgkmvkFSYJLQFPL2340-46-57 21:37:00 Test Item Value Reference Range Interpretation Comments TSH (test code = TSH) 4.720 0.360-3.740 [facility] CenterDkhqymrDPTCWFVZX0497-36-00 21:37:00 Test Item Value Reference Range Interpretation Comments T4 Free (test code = T4 Free) 0.99 0.76-1.46 [facility] CenterHjeeashMJMHVFJRV8111-08-90 21:37:00 Test Item Value Reference Range Interpretation Comments TSH (test code = TSH) 4.720 0.360-3.740 [place] [address]-10-11 21:37:00 Test Item Value Reference Range Interpretation Comments T4 Free (test code = T4 Free) 0.99 0.76-1.46 [place] [address]-10-11 21:37:00 Test Item Value Reference Range Interpretation Comments TSH (test code = TSH) 4.720 0.360-3.740 [place] 059282-10-11 21:37:00 Test Item Value Reference Range Interpretation Comments T4 Free (test code = T4 Free) 0.99 0.76-1.46 [place] [address]-10-11 21:37:00 Test Item Value Reference Range Interpretation Comments TSH (test code = TSH) 4.720 0.360-3.740 [place] 059282-10-11 21:37:00 Test Item Value Reference Range Interpretation Comments T4 Free (test code = T4 Free) 0.99 0.76-1.46 [place] 059282-10-11 21:37:00 Test Item Value Reference Range Interpretation Comments TSH (test code = TSH) 4.720 0.360-3.740 [place] [address]-10-11 21:37:00 Test Item Value Reference Range Interpretation Comments T4 Free (test code = T4 Free) 0.99 0.76-1.46 [facility]2022-10-10 10:13:00 Test Item Value Reference Range Interpretation Comments Glucose Lvl (test code = Glucose Lvl) 90 70-99 [facility]2022-10-10 10:13:00 Test Item Value Reference Range Interpretation Comments BUN (test code = BUN) 11 7-22 [facility]2022-10-10 10:13:00 Test Item Value Reference Range Interpretation Comments Creatinine Lvl (test code = Creatinine 0.84 0.50-1.40 Lvl) [facility]2022-10-10 10:13:00 Test Item Value Reference Range Interpretation Comments Sodium Lvl (test code = Sodium Lvl) 140 135-145 [facility]2022-10-10 10:13:00 Test Item Value Reference Range Interpretation Comments Potassium Lvl (test code = Potassium 4.2 3.5-5.1 Lvl) [facility]2022-10-10 10:13:00 Test Item Value Reference Range Interpretation Comments Chloride Lvl (test code = Chloride Lvl) 108 95-109 [facility]2022-10-10 10:13:00 Test Item Value Reference Range Interpretation Comments CO2 (test code = CO2) 27 24-32 [place] 115182-10-10 10:13:00 Test Item Value Reference Range Interpretation Comments Calcium Lvl (test code = Calcium Lvl) 8.8 8.5-10.5 [facility]2022-10-10 10:13:00 Test Item Value Reference Range Interpretation Comments AGAP (test code = AGAP) 9.2 10.0-20.0 [facility]2022-10-10 10:13:00 Test Item Value Reference Range Interpretation Comments eGFR (test code = eGFR) 70 [facility] CenterBgsnidzBAZQOXOTO2965-76-52 10:13:00 Test Item Value Reference Range Interpretation Comments Trig (test code = Trig) 115 [facility] CenterIqtoizcOYFCMQDYZ2842-16-99 10:13:00 Test Item Value Reference Range Interpretation Comments Chol (test code = Chol) 191 [facility] CenterTgccbbaAPUICZSCV6211-30-31 10:13:00 Test Item Value Reference Range Interpretation Comments HDL (test code = HDL) 55 [facility] CenterQxsiwhsMBTYQEQTP1265-53-54 10:13:00 Test Item Value Reference Range Interpretation Comments CHD Risk (test code = CHD Risk) 3.47 1 3.90-5.80 [facility] CenterFitxbfmDYBNEWZRP1619-06-94 10:13:00 Test Item Value Reference Range Interpretation Comments LDL (Calculated) (test code = LDL 113 (Calculated)) [place] 059282-10-10 10:13:00 Test Item Value Reference Range Interpretation Comments VLDL (test code = VLDL) 23 1 [facility] CenterKdmccosRQLYGDWYO3756-67-87 10:13:00 Test Item Value Reference Range Interpretation Comments Hgb A1C (test code = Hgb A1C) 5.9 [facility] CenterMumgfauPDODQOAFN3671-15-82 10:13:00 Test Item Value Reference Range Interpretation Comments Glucose Lvl (test code = Glucose Lvl) 90 70-99 [facility] CenterHlxkdfuYEGMQTUDV5868-20-84 10:13:00 Test Item Value Reference Range Interpretation Comments BUN (test code = BUN) 11 7-22 [place] 059282-10-10 10:13:00 Test Item Value Reference Range Interpretation Comments Creatinine Lvl (test code = Creatinine 0.84 0.50-1.40 Lvl) [facility] CenterMhoxuhuHWAHRYNZD1169-78-37 10:13:00 Test Item Value Reference Range Interpretation Comments Sodium Lvl (test code = Sodium Lvl) 140 135-145 [facility] CenterZhryboaOGLIEKDEY6179-11-33 10:13:00 Test Item Value Reference Range Interpretation Comments Potassium Lvl (test code = Potassium 4.2 3.5-5.1 Lvl) [facility] CenterInacicnJESZYYMPN8535-54-19 10:13:00 Test Item Value Reference Range Interpretation Comments Chloride Lvl (test code = Chloride Lvl) 108 95-109 [facility] CenterDwqvzczXZGSSNPKN7376-89-13 10:13:00 Test Item Value Reference Range Interpretation Comments CO2 (test code = CO2) 27 24-32 [facility] CenterOgtmxwzIVYVSQGFD9475-74-99 10:13:00 Test Item Value Reference Range Interpretation Comments Calcium Lvl (test code = Calcium Lvl) 8.8 8.5-10.5 [facility] CenterDddzxxvEIYDGRODL2731-24-11 10:13:00 Test Item Value Reference Range Interpretation Comments AGAP (test code = AGAP) 9.2 10.0-20.0 [facility] CenterIjiseelIBOEUYEWX3782-72-17 10:13:00 Test Item Value Reference Range Interpretation Comments eGFR (test code = eGFR) 70 [facility]ThqwvjlRQHLUHNAOD7525-11-22 10:13:00 Test Item Value Reference Range Interpretation Comments Segs (test code = Segs) 70.2 45.0-75.0 [facility] CenterKtrbajsFXZEODFZGA5564-34-91 10:13:00 Test Item Value Reference Range Interpretation Comments Lymphocytes (test code = Lymphocytes) 17.1 20.0-40.0 [facility] CenterMgwvcalWNLZTAFKOO1992-81-96 10:13:00 Test Item Value Reference Range Interpretation Comments Monocytes (test code = Monocytes) 9.6 2.0-12.0 [facility] CenterQymuctlCZJTLGPAGK4812-15-78 10:13:00 Test Item Value Reference Range Interpretation Comments Eosinophils (test code = Eosinophils) 2.1 <=4.0 [facility] CenterUohtntgSFYGJEEYCC4212-76-10 10:13:00 Test Item Value Reference Range Interpretation Comments Basophils (test code = Basophils) 1.0 <=1.0 [place] 861682-10-10 10:13:00 Test Item Value Reference Range Interpretation Comments Neutrophils # (test code = Neutrophils 3.4 1.5-8.1 #) [facility] CenterNynktjiHQFKEGIKLQ6574-31-33 10:13:00 Test Item Value Reference Range Interpretation Comments Lymphocytes # (test code = Lymphocytes 0.8 1.0-5.5 #) [facility] CenterZntybtkSNRHCSLMSV6562-61-62 10:13:00 Test Item Value Reference Range Interpretation Comments Monocytes # (test code = Monocytes #) 0.5 <=0.8 [place] 861682-10-10 10:13:00 Test Item Value Reference Range Interpretation Comments Eosinophils # (test code = Eosinophils 0.1 <=0.5 #) [facility] CenterFtapoveJOVVTHUNKE0015-70-88 10:13:00 Test Item Value Reference Range Interpretation Comments WBC (test code = WBC) 4.8 3.7-10.4 [place] 861682-10-10 10:13:00 Test Item Value Reference Range Interpretation Comments RBC (test code = RBC) 3.97 4.20-5.40 [place] 861682-10-10 10:13:00 Test Item Value Reference Range Interpretation Comments Hgb (test code = Hgb) 12.2 12.0-16.0 [place] 861682-10-10 10:13:00 Test Item Value Reference Range Interpretation Comments Hct (test code = Hct) 36.9 36.0-48.0 [facility] CenterFnunlomFGUKOOINQH2431-51-12 10:13:00 Test Item Value Reference Range Interpretation Comments MCV (test code = MCV) 92.8 80.0-98.0 [place] 861682-10-10 10:13:00 Test Item Value Reference Range Interpretation Comments MCH (test code = MCH) 30.7 pg 27.0-31.0 [place] 861682-10-10 10:13:00 Test Item Value Reference Range Interpretation Comments MCHC (test code = MCHC) 33.1 32.0-36.0 [place] 861682-10-10 10:13:00 Test Item Value Reference Range Interpretation Comments RDW (test code = RDW) 13.3 11.5-14.5 [place] 8[address]-10-10 10:13:00 Test Item Value Reference Range Interpretation Comments Platelet (test code = Platelet) 125 133-450 [place] 861682-10-10 10:13:00 Test Item Value Reference Range Interpretation Comments MPV (test code = MPV) 8.9 7.4-10.4 [place] 861682-10-10 10:13:00 Test Item Value Reference Range Interpretation Comments Segs (test code = Segs) 70.2 45.0-75.0 [facility] CenterHtwlmkgVLYVVPJQBS7057-32-02 10:13:00 Test Item Value Reference Range Interpretation Comments Lymphocytes (test code = Lymphocytes) 17.1 20.0-40.0 [place] 861682-10-10 10:13:00 Test Item Value Reference Range Interpretation Comments Monocytes (test code = Monocytes) 9.6 2.0-12.0 [place] 861682-10-10 10:13:00 Test Item Value Reference Range Interpretation Comments Eosinophils (test code = Eosinophils) 2.1 <=4.0 [facility] CenterBwqcyjgVEWIHTZBEQ6434-28-94 10:13:00 Test Item Value Reference Range Interpretation Comments Basophils (test code = Basophils) 1.0 <=1.0 [facility] CenterFgehohuKMWUGLCCNI8980-51-40 10:13:00 Test Item Value Reference Range Interpretation Comments Neutrophils # (test code = Neutrophils 3.4 1.5-8.1 #) [facility] CenterUzxymfyLAMVRBAPYY5358-99-58 10:13:00 Test Item Value Reference Range Interpretation Comments Lymphocytes # (test code = Lymphocytes 0.8 1.0-5.5 #) [facility] CenterKktaqouKEFBHQZECO6828-46-95 10:13:00 Test Item Value Reference Range Interpretation Comments Monocytes # (test code = Monocytes #) 0.5 <=0.8 [place] 861682-10-10 10:13:00 Test Item Value Reference Range Interpretation Comments Eosinophils # (test code = Eosinophils 0.1 <=0.5 #) [facility] CenterZojrbnuUFNKRTHMGK5259-85-08 10:13:00 Test Item Value Reference Range Interpretation Comments WBC (test code = WBC) 4.8 3.7-10.4 [place] 861682-10-10 10:13:00 Test Item Value Reference Range Interpretation Comments RBC (test code = RBC) 3.97 4.20-5.40 [facility] CenterXtbubbhLLYFSGCYDD5594-94-45 10:13:00 Test Item Value Reference Range Interpretation Comments Hgb (test code = Hgb) 12.2 12.0-16.0 [facility] CenterJzklpuqLEMJQLDWXG7240-51-59 10:13:00 Test Item Value Reference Range Interpretation Comments Hct (test code = Hct) 36.9 36.0-48.0 [facility] CenterXwvhnvfJFOPYFIRYG2497-68-51 10:13:00 Test Item Value Reference Range Interpretation Comments MCV (test code = MCV) 92.8 80.0-98.0 [facility] CenterQdxqwkeILFTCDYAWN6740-03-01 10:13:00 Test Item Value Reference Range Interpretation Comments MCH (test code = MCH) 30.7 pg 27.0-31.0 [facility] CenterVfzdrqeLXKLMFKOYE0726-45-80 10:13:00 Test Item Value Reference Range Interpretation Comments MCHC (test code = MCHC) 33.1 32.0-36.0 [facility] CenterFartterTMQPBRPAAC2208-90-25 10:13:00 Test Item Value Reference Range Interpretation Comments RDW (test code = RDW) 13.3 11.5-14.5 [facility] CenterSwttuwlLOLNBPQWEZ6097-71-18 10:13:00 Test Item Value Reference Range Interpretation Comments Platelet (test code = Platelet) 125 133-450 [facility] CenterZxeqmlzSYRSEKFCNM3037-56-53 10:13:00 Test Item Value Reference Range Interpretation Comments MPV (test code = MPV) 8.9 7.4-10.4 [facility]NlgkwtsJHTAJU6238-24-79 10:13:00 Test Item Value Reference Range Interpretation Comments Trig (test code = Trig) 115 [facility] CenterYcbwiqaZCIRKB9534-43-49 10:13:00 Test Item Value Reference Range Interpretation Comments Chol (test code = Chol) 191 [facility]RsbjmqmIPVDAT1208-49-76 10:13:00 Test Item Value Reference Range Interpretation Comments HDL (test code = HDL) 55 [facility] CenterYdmbtvnJRGQNO3477-67-20 10:13:00 Test Item Value Reference Range Interpretation Comments CHD Risk (test code = CHD Risk) 3.47 1 3.90-5.80 [facility] CenterWkqmrikUYERIW0493-68-43 10:13:00 Test Item Value Reference Range Interpretation Comments LDL (Calculated) (test code = LDL 113 (Calculated)) [facility]TwodmzkPYRLNK0875-68-09 10:13:00 Test Item Value Reference Range Interpretation Comments VLDL (test code = VLDL) 23 1 [facility] IUDBKCZLS9188-42-84 10:13:00 Test Item Value Reference Range Interpretation Comments Hgb A1C (test code = Hgb A1C) 5.9 [facility] CenterVdrbpzoGQRMKRVEAS2564-82-64 10:13:00 Test Item Value Reference Range Interpretation Comments Eosinophils (test code = 2.1 See_Comment [A utomated message] The Eosinophils) system which ge nerated this result tra nsmitted reference range : <=4.0. The reference r fermín was not used to int erpret this result as normal/abnormal . [facility] CenterYtiuygbJOUGRREUIU2697-77-54 10:13:00 Test Item Value Reference Range Interpretation Comments Basophils (test code = 1.0 See_Comment [Aut omated message] The Basophils) system which ge nerated this result tra nsmitted reference range : <=1.0. The reference r fermín was not used to int erpret this result as normal/abnormal . [facility] CenterAuhmfwkYHGXAIYQFN8262-96-14 10:13:00 Test Item Value Reference Range Interpretation Comments Neutrophils # (test code = Neutrophils 3.4 1.5-8.1 #) [facility] CenterBhxlilqZVEKSWOGYX9440-63-99 10:13:00 Test Item Value Reference Range Interpretation Comments Lymphocytes # (test code = Lymphocytes 0.8 1.0-5.5 #) [facility] CenterGgempybNYKIBODTOS7620-34-05 10:13:00 Test Item Value Reference Range Interpretation Comments Monocytes # (test code 0.5 See_Comment [Aut omated message] The = Monocytes #) system which generated this result tra nsmitted reference range : <=0.8. The reference r fermín was not used to int erpret this result as normal/abnormal . [facility] CenterSytoosjQEOGMGAKUS0622-43-00 10:13:00 Test Item Value Reference Range Interpretation Comments Eosinophils # (test code 0.1 See_Comment [A utomated message] The = Eosinophils #) system whic h generated this result tra nsmitted reference range : <=0.5. The reference r fermín was not used to int erpret this result as normal/abnormal . [facility] CenterAooqmddQNTFPMXBKC1510-53-35 10:13:00 Test Item Value Reference Range Interpretation Comments WBC (test code = WBC) 4.8 3.7-10.4 [facility] CenterWqzpckwCAEOLAODTM9466-66-44 10:13:00 Test Item Value Reference Range Interpretation Comments RBC (test code = RBC) 3.97 4.20-5.40 [facility] CenterEjafzyfMBOZEKKPNL9900-52-40 10:13:00 Test Item Value Reference Range Interpretation Comments Hgb (test code = Hgb) 12.2 12.0-16.0 [facility] CenterTpshxweNMPCZGVRJS9416-67-92 10:13:00 Test Item Value Reference Range Interpretation Comments Hct (test code = Hct) 36.9 36.0-48.0 [facility] CenterTxodpadPJASOQSUNY8666-93-55 10:13:00 Test Item Value Reference Range Interpretation Comments MCV (test code = MCV) 92.8 80.0-98.0 [facility] CenterSzqojwkUZRAYQWSPO1884-27-73 10:13:00 Test Item Value Reference Range Interpretation Comments MCH (test code = MCH) 30.7 pg 27.0-31.0 [facility] CenterXvokoodTKBZHYMHUZ5775-35-34 10:13:00 Test Item Value Reference Range Interpretation Comments MCHC (test code = MCHC) 33.1 32.0-36.0 [facility] CenterWqrazfwSNCNQZPITT6206-65-08 10:13:00 Test Item Value Reference Range Interpretation Comments RDW (test code = RDW) 13.3 11.5-14.5 [facility] CenterRurbezoPWOPXTJLIQ4130-54-03 10:13:00 Test Item Value Reference Range Interpretation Comments Platelet (test code = Platelet) 125 133-450 [facility] CenterIuplztiFGREKUWFYA5759-86-55 10:13:00 Test Item Value Reference Range Interpretation Comments MPV (test code = MPV) 8.9 7.4-10.4 [facility] CenterHyapsyuXYTXZQHFMN6124-01-16 10:13:00 Test Item Value Reference Range Interpretation Comments Segs (test code = Segs) 70.2 45.0-75.0 [facility] CenterUeansjnJOAOLSXIQQ4022-67-47 10:13:00 Test Item Value Reference Range Interpretation Comments Lymphocytes (test code = Lymphocytes) 17.1 20.0-40.0 [facility] CenterBxxorolCAVMOMUDPG1564-07-22 10:13:00 Test Item Value Reference Range Interpretation Comments Monocytes (test code = Monocytes) 9.6 2.0-12.0 [place] 861682-10-10 10:13:00 Test Item Value Reference Range Interpretation Comments Eosinophils (test code = 2.1 See_Comment [A utomated message] The Eosinophils) system which ge nerated this result tra nsmitted reference range : <=4.0. The reference r fermín was not used to int erpret this result as normal/abnormal . [place] 861682-10-10 10:13:00 Test Item Value Reference Range Interpretation Comments Basophils (test code = 1.0 See_Comment [Aut omated message] The Basophils) system which ge nerated this result tra nsmitted reference range : <=1.0. The reference r fermín was not used to int erpret this result as normal/abnormal . [facility] CenterAccjwxzEGTZNUISBZ7151-10-30 10:13:00 Test Item Value Reference Range Interpretation Comments Neutrophils # (test code = Neutrophils 3.4 1.5-8.1 #) [place] 861682-10-10 10:13:00 Test Item Value Reference Range Interpretation Comments Lymphocytes # (test code = Lymphocytes 0.8 1.0-5.5 #) [facility] CenterHtmgowxEUBGLHEZJZ7054-19-81 10:13:00 Test Item Value Reference Range Interpretation Comments Monocytes # (test code 0.5 See_Comment [Aut omated message] The = Monocytes #) system which generated this result tra nsmitted reference range : <=0.8. The reference r fermín was not used to int erpret this result as normal/abnormal . [facility] CenterUegpuatDFPFDGTMXK7244-61-37 10:13:00 Test Item Value Reference Range Interpretation Comments Eosinophils # (test code 0.1 See_Comment [A utomated message] The = Eosinophils #) system whic h generated this result tra nsmitted reference range : <=0.5. The reference r fermín was not used to int erpret this result as normal/abnormal . [facility] CenterHknqijpBYFNWWCHVJ0360-39-62 10:13:00 Test Item Value Reference Range Interpretation Comments WBC (test code = WBC) 4.8 3.7-10.4 [place] 861682-10-10 10:13:00 Test Item Value Reference Range Interpretation Comments RBC (test code = RBC) 3.97 4.20-5.40 [facility] CenterPrhrcmvOCFGNTFDJW1064-41-19 10:13:00 Test Item Value Reference Range Interpretation Comments Hgb (test code = Hgb) 12.2 12.0-16.0 [facility] CenterYeuokqeTHVUCILLYI4095-94-88 10:13:00 Test Item Value Reference Range Interpretation Comments Hct (test code = Hct) 36.9 36.0-48.0 [facility] CenterOiulzqzRNCMOLBIGM8431-31-37 10:13:00 Test Item Value Reference Range Interpretation Comments MCV (test code = MCV) 92.8 80.0-98.0 [facility] CenterMnzniujOAFDAYMKVY3014-10-27 10:13:00 Test Item Value Reference Range Interpretation Comments MCH (test code = MCH) 30.7 pg 27.0-31.0 [facility] CenterKdbigedJJRTHMDKMB2278-04-75 10:13:00 Test Item Value Reference Range Interpretation Comments MCHC (test code = MCHC) 33.1 32.0-36.0 [facility] CenterGseougtFASBGCYEID3498-36-47 10:13:00 Test Item Value Reference Range Interpretation Comments RDW (test code = RDW) 13.3 11.5-14.5 [facility] CenterMellllzDQBPWARHRP7254-55-36 10:13:00 Test Item Value Reference Range Interpretation Comments Platelet (test code = Platelet) 125 133-450 [facility] CenterShtqepaFTETHBIONY7774-72-50 10:13:00 Test Item Value Reference Range Interpretation Comments MPV (test code = MPV) 8.9 7.4-10.4 [place] 831262-10-10 10:13:00 Test Item Value Reference Range Interpretation Comments Trig (test code = Trig) 115 [facility] CenterRcxlpomGHDKWH4784-33-07 10:13:00 Test Item Value Reference Range Interpretation Comments Chol (test code = Chol) 191 [facility] CenterPukjisrUIPGBO3552-30-61 10:13:00 Test Item Value Reference Range Interpretation Comments HDL (test code = HDL) 55 [facility] CenterCidbrxrYLCYDD0496-64-48 10:13:00 Test Item Value Reference Range Interpretation Comments CHD Risk (test code = CHD Risk) 3.47 1 3.90-5.80 [place] 831262-10-10 10:13:00 Test Item Value Reference Range Interpretation Comments LDL (Calculated) (test code = LDL 113 (Calculated)) [facility]JegjywrASZFTO8395-07-35 10:13:00 Test Item Value Reference Range Interpretation Comments VLDL (test code = VLDL) 23 1 [facility] ZRGSWKQBP0000-82-07 10:13:00 Test Item Value Reference Range Interpretation Comments Hgb A1C (test code = Hgb A1C) 5.9 [facility] MWMVT5160-86-46 10:13:00 Test Item Value Reference Range Interpretation Comments Glucose Lvl (test code = Glucose Lvl) 90 70-99 [facility]2022-10-10 10:13:00 Test Item Value Reference Range Interpretation Comments BUN (test code = BUN) 11 7-22 [facility]2022-10-10 10:13:00 Test Item Value Reference Range Interpretation Comments Creatinine Lvl (test code = Creatinine 0.84 0.50-1.40 Lvl) [facility]2022-10-10 10:13:00 Test Item Value Reference Range Interpretation Comments Sodium Lvl (test code = Sodium Lvl) 140 135-145 [facility]2022-10-10 10:13:00 Test Item Value Reference Range Interpretation Comments Potassium Lvl (test code = Potassium 4.2 3.5-5.1 Lvl) [facility]2022-10-10 10:13:00 Test Item Value Reference Range Interpretation Comments Chloride Lvl (test code = Chloride Lvl) 108 95-109 [facility]2022-10-10 10:13:00 Test Item Value Reference Range Interpretation Comments CO2 (test code = CO2) 27 24-32 [facility]2022-10-10 10:13:00 Test Item Value Reference Range Interpretation Comments Calcium Lvl (test code = Calcium Lvl) 8.8 8.5-10.5 [facility]2022-10-10 10:13:00 Test Item Value Reference Range Interpretation Comments AGAP (test code = AGAP) 9.2 10.0-20.0 [facility]2022-10-10 10:13:00 Test Item Value Reference Range Interpretation Comments eGFR (test code = eGFR) 70 [facility] CenterSzoiambPRKPDGUJE0677-28-02 10:13:00 Test Item Value Reference Range Interpretation Comments Trig (test code = Trig) 115 [facility] CenterWxxywixLBDHXACKI0447-83-01 10:13:00 Test Item Value Reference Range Interpretation Comments Chol (test code = Chol) 191 [facility] CenterBvpjxajFWDHVTWTL2441-65-75 10:13:00 Test Item Value Reference Range Interpretation Comments HDL (test code = HDL) 55 [facility] CenterJjfxrsuEQPHXSSOC6898-92-44 10:13:00 Test Item Value Reference Range Interpretation Comments CHD Risk (test code = CHD Risk) 3.47 1 3.90-5.80 [facility] CenterNgzpdosAQKMPGZAW5764-81-14 10:13:00 Test Item Value Reference Range Interpretation Comments LDL (Calculated) (test code = LDL 113 (Calculated)) [facility] CenterBnfdguoQYXFAYZAU0619-48-09 10:13:00 Test Item Value Reference Range Interpretation Comments VLDL (test code = VLDL) 23 1 [facility] CenterImauswtAYKTAEWFJ4286-85-05 10:13:00 Test Item Value Reference Range Interpretation Comments Hgb A1C (test code = Hgb A1C) 5.9 [facility] CenterJfjqjdjJMESETLLG5126-57-46 10:13:00 Test Item Value Reference Range Interpretation Comments Glucose Lvl (test code = Glucose Lvl) 90 70-99 [facility] CenterVgkiurpUTJLBRAFT6305-34-34 10:13:00 Test Item Value Reference Range Interpretation Comments BUN (test code = BUN) 11 7-22 [facility] CenterBiuioafHDIOTHVBO9298-81-47 10:13:00 Test Item Value Reference Range Interpretation Comments Creatinine Lvl (test code = Creatinine 0.84 0.50-1.40 Lvl) [facility] CenterQpqakajZBPDRHLAI3991-63-97 10:13:00 Test Item Value Reference Range Interpretation Comments Sodium Lvl (test code = Sodium Lvl) 140 135-145 [facility] CenterHilspzeCMPRPBBTN5305-79-84 10:13:00 Test Item Value Reference Range Interpretation Comments Potassium Lvl (test code = Potassium 4.2 3.5-5.1 Lvl) [facility] CenterVguvhvsPNQWYTINR6823-15-83 10:13:00 Test Item Value Reference Range Interpretation Comments Chloride Lvl (test code = Chloride Lvl) 108 95-109 [facility] CenterOszstejBURNCLHIE4367-80-06 10:13:00 Test Item Value Reference Range Interpretation Comments CO2 (test code = CO2) 27 24-32 [facility] CenterAkvenkrQWDDKLCPO6910-07-77 10:13:00 Test Item Value Reference Range Interpretation Comments Calcium Lvl (test code = Calcium Lvl) 8.8 8.5-10.5 [facility] CenterVfnaresINITDGIHP3795-83-55 10:13:00 Test Item Value Reference Range Interpretation Comments AGAP (test code = AGAP) 9.2 10.0-20.0 [place] 059282-10-10 10:13:00 Test Item Value Reference Range Interpretation Comments eGFR (test code = eGFR) 70 [facility] CenterGlxfkuiQODOVPJOEI1700-25-85 10:13:00 Test Item Value Reference Range Interpretation Comments Segs (test code = Segs) 70.2 45.0-75.0 [facility] CenterOamkuqpHVCQJCYCNX8361-59-01 10:13:00 Test Item Value Reference Range Interpretation Comments Lymphocytes (test code = Lymphocytes) 17.1 20.0-40.0 [facility] CenterTxjitwmMRVLVLBUOE7451-55-26 10:13:00 Test Item Value Reference Range Interpretation Comments Monocytes (test code = Monocytes) 9.6 2.0-12.0 [facility] CenterNyarhvfXFAFIYBSWB1736-26-05 10:13:00 Test Item Value Reference Range Interpretation Comments Eosinophils (test code = 2.1 See_Comment [A utomated message] The Eosinophils) system which ge nerated this result tra nsmitted reference range : <=4.0. The reference r fermín was not used to int erpret this result as normal/abnormal . [facility]JkfewudLTXARBDKHR8162-89-04 10:13:00 Test Item Value Reference Range Interpretation Comments Basophils (test code = 1.0 See_Comment [Aut omated message] The Basophils) system which ge nerated this result tra nsmitted reference range : <=1.0. The reference r fermín was not used to int erpret this result as normal/abnormal . [facility] CenterArltwrwTDESJJIZHM3059-77-94 10:13:00 Test Item Value Reference Range Interpretation Comments Neutrophils # (test code = Neutrophils 3.4 1.5-8.1 #) [facility] CenterFpbuqycJRJIAUJEYP8159-56-41 10:13:00 Test Item Value Reference Range Interpretation Comments Lymphocytes # (test code = Lymphocytes 0.8 1.0-5.5 #) [place] 861682-10-10 10:13:00 Test Item Value Reference Range Interpretation Comments Monocytes # (test code 0.5 See_Comment [Aut omated message] The = Monocytes #) system which generated this result tra nsmitted reference range : <=0.8. The reference r fermín was not used to int erpret this result as normal/abnormal . [facility] CenterQshnyorHTZCJBWFIL4442-53-16 10:13:00 Test Item Value Reference Range Interpretation Comments Eosinophils # (test code 0.1 See_Comment [A utomated message] The = Eosinophils #) system whic h generated this result tra nsmitted reference range : <=0.5. The reference r fermín was not used to int erpret this result as normal/abnormal . [facility] CenterCgmkjpmIJQVCLCHQT5502-02-56 10:13:00 Test Item Value Reference Range Interpretation Comments WBC (test code = WBC) 4.8 3.7-10.4 [place] 861682-10-10 10:13:00 Test Item Value Reference Range Interpretation Comments RBC (test code = RBC) 3.97 4.20-5.40 [facility] CenterSlztgmfNPDTRXBNFK5133-14-21 10:13:00 Test Item Value Reference Range Interpretation Comments Hgb (test code = Hgb) 12.2 12.0-16.0 [facility] CenterCftycyqRIDWVPIVLR7990-31-87 10:13:00 Test Item Value Reference Range Interpretation Comments Hct (test code = Hct) 36.9 36.0-48.0 [facility] CenterNdbmnmqDGAOFTZRVZ0476-90-52 10:13:00 Test Item Value Reference Range Interpretation Comments MCV (test code = MCV) 92.8 80.0-98.0 [facility] CenterTisnuffSMAAACVOLL8337-05-79 10:13:00 Test Item Value Reference Range Interpretation Comments MCH (test code = MCH) 30.7 pg 27.0-31.0 [facility] CenterJligeupRXJXKJNDPX1703-23-60 10:13:00 Test Item Value Reference Range Interpretation Comments MCHC (test code = MCHC) 33.1 32.0-36.0 [facility] CenterLsrfhkwSOHAHRPSWK0197-79-80 10:13:00 Test Item Value Reference Range Interpretation Comments RDW (test code = RDW) 13.3 11.5-14.5 [place] 861682-10-10 10:13:00 Test Item Value Reference Range Interpretation Comments Platelet (test code = Platelet) 125 133-450 [facility] CenterFglstnzMQBFCUQVKR8045-39-63 10:13:00 Test Item Value Reference Range Interpretation Comments MPV (test code = MPV) 8.9 7.4-10.4 [facility] CenterVptdjjnVRVTBINCFC5017-39-39 10:13:00 Test Item Value Reference Range Interpretation Comments Segs (test code = Segs) 70.2 45.0-75.0 [place] 861682-10-10 10:13:00 Test Item Value Reference Range Interpretation Comments Lymphocytes (test code = Lymphocytes) 17.1 20.0-40.0 [place] 861682-10-10 10:13:00 Test Item Value Reference Range Interpretation Comments Monocytes (test code = Monocytes) 9.6 2.0-12.0 [facility] CenterArzjduhLRWFNQEYVA7437-34-62 10:13:00 Test Item Value Reference Range Interpretation Comments Eosinophils (test code = 2.1 See_Comment [A utomated message] The Eosinophils) system which ge nerated this result tra nsmitted reference range : <=4.0. The reference r fermín was not used to int erpret this result as normal/abnormal . [facility] CenterVkowdvaXVWRQUTYVR9267-99-96 10:13:00 Test Item Value Reference Range Interpretation Comments Basophils (test code = 1.0 See_Comment [Aut omated message] The Basophils) system which ge nerated this result tra nsmitted reference range : <=1.0. The reference r fermín was not used to int erpret this result as normal/abnormal . [facility] CenterHentufoYUBVHHCEFQ7279-42-08 10:13:00 Test Item Value Reference Range Interpretation Comments Neutrophils # (test code = Neutrophils 3.4 1.5-8.1 #) [facility] CenterWfkrypjLZAZELXSGT8201-60-95 10:13:00 Test Item Value Reference Range Interpretation Comments Lymphocytes # (test code = Lymphocytes 0.8 1.0-5.5 #) [facility] CenterUwasnebJUHTTNBJDL3586-51-40 10:13:00 Test Item Value Reference Range Interpretation Comments Monocytes # (test code 0.5 See_Comment [Aut omated message] The = Monocytes #) system which generated this result tra nsmitted reference range : <=0.8. The reference r fermín was not used to int erpret this result as normal/abnormal . [facility] CenterZzjzzukULSILBOWAF3063-34-84 10:13:00 Test Item Value Reference Range Interpretation Comments Eosinophils # (test code 0.1 See_Comment [A utomated message] The = Eosinophils #) system whic h generated this result tra nsmitted reference range : <=0.5. The reference r fermín was not used to int erpret this result as normal/abnormal . [facility] CenterWghrgyeYUVXIGNPJQ7488-33-83 10:13:00 Test Item Value Reference Range Interpretation Comments WBC (test code = WBC) 4.8 3.7-10.4 [facility] CenterYgvbtqfQZWSWHPZVA7644-72-15 10:13:00 Test Item Value Reference Range Interpretation Comments RBC (test code = RBC) 3.97 4.20-5.40 [facility] CenterAqeawoiRZCKNYEYZN6361-67-39 10:13:00 Test Item Value Reference Range Interpretation Comments Hgb (test code = Hgb) 12.2 12.0-16.0 [facility] CenterUhcrkszJECLHGHHCI9959-03-50 10:13:00 Test Item Value Reference Range Interpretation Comments Hct (test code = Hct) 36.9 36.0-48.0 [facility] CenterModhgocRJZZZANJPG4119-70-17 10:13:00 Test Item Value Reference Range Interpretation Comments MCV (test code = MCV) 92.8 80.0-98.0 [facility] CenterSnkoyjsOJKDHAHRXR5837-39-13 10:13:00 Test Item Value Reference Range Interpretation Comments MCH (test code = MCH) 30.7 pg 27.0-31.0 [facility] CenterJxutocxEZIEOHAFNG8901-68-29 10:13:00 Test Item Value Reference Range Interpretation Comments MCHC (test code = MCHC) 33.1 32.0-36.0 [facility] CenterKdhdwbvQODJKXHFZL8397-97-05 10:13:00 Test Item Value Reference Range Interpretation Comments RDW (test code = RDW) 13.3 11.5-14.5 [facility] CenterSygtzpnOXQGFWIMMN7123-47-07 10:13:00 Test Item Value Reference Range Interpretation Comments Platelet (test code = Platelet) 125 133-450 [facility] CenterKguygfgZUDUOVZSKM0021-93-13 10:13:00 Test Item Value Reference Range Interpretation Comments MPV (test code = MPV) 8.9 7.4-10.4 [facility]WzsvupaCXKXNI9439-29-14 10:13:00 Test Item Value Reference Range Interpretation Comments Trig (test code = Trig) 115 [place] [address]-10-10 10:13:00 Test Item Value Reference Range Interpretation Comments Chol (test code = Chol) 191 [facility]AafsepsGUQVQL5467-94-69 10:13:00 Test Item Value Reference Range Interpretation Comments HDL (test code = HDL) 55 [facility] SoutheastEsgeksaVFYBDL1732-42-42 10:13:00 Test Item Value Reference Range Interpretation Comments CHD Risk (test code = CHD Risk) 3.47 1 3.90-5.80 [facility] SoutheastShxmoviVJHWZD1799-19-66 10:13:00 Test Item Value Reference Range Interpretation Comments LDL (Calculated) (test code = LDL 113 (Calculated)) [facility] SoutheastAnqdtwzUSHUTD8746-61-46 10:13:00 Test Item Value Reference Range Interpretation Comments VLDL (test code = VLDL) 23 1 [facility] DRZJPONYC7688-73-66 10:13:00 Test Item Value Reference Range Interpretation Comments Hgb A1C (test code = Hgb A1C) 5.9 [facility]2022-10-10 10:13:00 Test Item Value Reference Range Interpretation Comments Glucose Lvl (test code = Glucose Lvl) 90 70-99 [facility]2022-10-10 10:13:00 Test Item Value Reference Range Interpretation Comments BUN (test code = BUN) 11 7-22 [facility]2022-10-10 10:13:00 Test Item Value Reference Range Interpretation Comments Creatinine Lvl (test code = Creatinine 0.84 0.50-1.40 Lvl) [facility]2022-10-10 10:13:00 Test Item Value Reference Range Interpretation Comments Sodium Lvl (test code = Sodium Lvl) 140 135-145 [facility]2022-10-10 10:13:00 Test Item Value Reference Range Interpretation Comments Potassium Lvl (test code = Potassium 4.2 3.5-5.1 Lvl) [facility]2022-10-10 10:13:00 Test Item Value Reference Range Interpretation Comments Chloride Lvl (test code = Chloride Lvl) 108 95-109 [facility]2022-10-10 10:13:00 Test Item Value Reference Range Interpretation Comments CO2 (test code = CO2) 27 24-32 [place] 115182-10-10 10:13:00 Test Item Value Reference Range Interpretation Comments Calcium Lvl (test code = Calcium Lvl) 8.8 8.5-10.5 [facility]2022-10-10 10:13:00 Test Item Value Reference Range Interpretation Comments AGAP (test code = AGAP) 9.2 10.0-20.0 [facility]2022-10-10 10:13:00 Test Item Value Reference Range Interpretation Comments eGFR (test code = eGFR) 70 [facility] CenterAgpaetyWSHEYSZFJ7213-47-27 10:13:00 Test Item Value Reference Range Interpretation Comments Trig (test code = Trig) 115 [facility] CenterQaelclbNCULEAIRC0339-78-56 10:13:00 Test Item Value Reference Range Interpretation Comments Chol (test code = Chol) 191 [facility] CenterWuktgwuVOIJOAETS7636-93-59 10:13:00 Test Item Value Reference Range Interpretation Comments HDL (test code = HDL) 55 [facility] CenterZiujdnzFASDPJMQC1136-81-24 10:13:00 Test Item Value Reference Range Interpretation Comments CHD Risk (test code = CHD Risk) 3.47 1 3.90-5.80 [facility] CenterApqwsstWSXTZWJUK2067-48-29 10:13:00 Test Item Value Reference Range Interpretation Comments LDL (Calculated) (test code = LDL 113 (Calculated)) [facility] CenterArbrfvoQJAHPRMYO1129-35-42 10:13:00 Test Item Value Reference Range Interpretation Comments VLDL (test code = VLDL) 23 1 [facility] CenterBiakrltUQGIMJMEY5763-43-83 10:13:00 Test Item Value Reference Range Interpretation Comments Hgb A1C (test code = Hgb A1C) 5.9 [facility] CenterMaagwfgCPXJSTUCN0405-14-52 10:13:00 Test Item Value Reference Range Interpretation Comments Glucose Lvl (test code = Glucose Lvl) 90 70-99 [facility] CenterUwgkxtlHZJCXRRJA7362-15-49 10:13:00 Test Item Value Reference Range Interpretation Comments BUN (test code = BUN) 11 7-22 [facility] CenterAssxuhmGHVMOQQXQ3826-37-84 10:13:00 Test Item Value Reference Range Interpretation Comments Creatinine Lvl (test code = Creatinine 0.84 0.50-1.40 Lvl) [facility] CenterRetjiimNVIWAXBZH2321-79-70 10:13:00 Test Item Value Reference Range Interpretation Comments Sodium Lvl (test code = Sodium Lvl) 140 135-145 [facility] CenterPgewtvfGGFDBUUEY2701-56-72 10:13:00 Test Item Value Reference Range Interpretation Comments Potassium Lvl (test code = Potassium 4.2 3.5-5.1 Lvl) [facility] CenterJletsfzHQYKTNZCG4920-74-56 10:13:00 Test Item Value Reference Range Interpretation Comments Chloride Lvl (test code = Chloride Lvl) 108 95-109 [facility] CenterKolcmkrNSPTQZDTC7642-02-11 10:13:00 Test Item Value Reference Range Interpretation Comments CO2 (test code = CO2) 27 24-32 [facility] CenterEmdhsniPNQLXGYUG1346-18-59 10:13:00 Test Item Value Reference Range Interpretation Comments Calcium Lvl (test code = Calcium Lvl) 8.8 8.5-10.5 [facility] CenterYvvgofpWRRXTRMDQ2816-18-99 10:13:00 Test Item Value Reference Range Interpretation Comments AGAP (test code = AGAP) 9.2 10.0-20.0 [facility] CenterCqacfliHXQEPQRFA7959-48-17 10:13:00 Test Item Value Reference Range Interpretation Comments eGFR (test code = eGFR) 70 [facility] CenterZuaelolWCUKKEAAWW6389-63-32 10:13:00 Test Item Value Reference Range Interpretation Comments Segs (test code = Segs) 70.2 45.0-75.0 [facility] CenterGgohnshCVAKYQGRUS9088-63-63 10:13:00 Test Item Value Reference Range Interpretation Comments Lymphocytes (test code = Lymphocytes) 17.1 20.0-40.0 [facility] CenterWtumskiUTNOBWHSHQ2831-71-73 10:13:00 Test Item Value Reference Range Interpretation Comments Monocytes (test code = Monocytes) 9.6 2.0-12.0 [place] 861682-10-10 10:13:00 Test Item Value Reference Range Interpretation Comments Eosinophils (test code = 2.1 See_Comment [A utomated message] The Eosinophils) system which ge nerated this result tra nsmitted reference range : <=4.0. The reference r fermín was not used to int erpret this result as normal/abnormal . [facility] CenterCtqruamLKKCXDTZYV4143-84-95 10:13:00 Test Item Value Reference Range Interpretation Comments Basophils (test code = 1.0 See_Comment [Aut omated message] The Basophils) system which ge nerated this result tra nsmitted reference range : <=1.0. The reference r fermín was not used to int erpret this result as normal/abnormal . [facility] CenterKfvxttrWIKTTGDXGL2000-78-94 10:13:00 Test Item Value Reference Range Interpretation Comments Neutrophils # (test code = Neutrophils 3.4 1.5-8.1 #) [facility] CenterTdqtpoeSSRJEXGSCB5078-72-00 10:13:00 Test Item Value Reference Range Interpretation Comments Lymphocytes # (test code = Lymphocytes 0.8 1.0-5.5 #) [facility] CenterBxjzycxYAOUCBRJWG8834-05-19 10:13:00 Test Item Value Reference Range Interpretation Comments Monocytes # (test code 0.5 See_Comment [Aut omated message] The = Monocytes #) system which generated this result tra nsmitted reference range : <=0.8. The reference r fermín was not used to int erpret this result as normal/abnormal . [facility] CenterHxjksmvRENTZPFPLF4331-36-60 10:13:00 Test Item Value Reference Range Interpretation Comments Eosinophils # (test code 0.1 See_Comment [A utomated message] The = Eosinophils #) system whic h generated this result tra nsmitted reference range : <=0.5. The reference r fermín was not used to int erpret this result as normal/abnormal . [facility] CenterGvfrnexLRUSYSPLTJ3230-88-00 10:13:00 Test Item Value Reference Range Interpretation Comments WBC (test code = WBC) 4.8 3.7-10.4 [facility] CenterHonduylBPJSPHMODS7710-62-33 10:13:00 Test Item Value Reference Range Interpretation Comments RBC (test code = RBC) 3.97 4.20-5.40 [facility] CenterSjhrjlfXXCZDBKLOR0286-39-46 10:13:00 Test Item Value Reference Range Interpretation Comments Hgb (test code = Hgb) 12.2 12.0-16.0 [facility] CenterXuyaghgLJFYRIJQJV2284-42-82 10:13:00 Test Item Value Reference Range Interpretation Comments Hct (test code = Hct) 36.9 36.0-48.0 [facility] CenterGcmutsxEZWFZQKRKI6730-07-43 10:13:00 Test Item Value Reference Range Interpretation Comments MCV (test code = MCV) 92.8 80.0-98.0 [facility] CenterDwzopppANEXLOJFDL0702-68-38 10:13:00 Test Item Value Reference Range Interpretation Comments MCH (test code = MCH) 30.7 pg 27.0-31.0 [place] 861682-10-10 10:13:00 Test Item Value Reference Range Interpretation Comments MCHC (test code = MCHC) 33.1 32.0-36.0 [place] 861682-10-10 10:13:00 Test Item Value Reference Range Interpretation Comments RDW (test code = RDW) 13.3 11.5-14.5 [place] 861682-10-10 10:13:00 Test Item Value Reference Range Interpretation Comments Platelet (test code = Platelet) 125 133-450 [place] 861682-10-10 10:13:00 Test Item Value Reference Range Interpretation Comments MPV (test code = MPV) 8.9 7.4-10.4 [place] 861682-10-10 10:13:00 Test Item Value Reference Range Interpretation Comments Segs (test code = Segs) 70.2 45.0-75.0 [place] 861682-10-10 10:13:00 Test Item Value Reference Range Interpretation Comments Lymphocytes (test code = Lymphocytes) 17.1 20.0-40.0 [place] 861682-10-10 10:13:00 Test Item Value Reference Range Interpretation Comments Monocytes (test code = Monocytes) 9.6 2.0-12.0 [place] 861682-10-10 10:13:00 Test Item Value Reference Range Interpretation Comments Eosinophils (test code = 2.1 See_Comment [A utomated message] The Eosinophils) system which ge nerated this result tra nsmitted reference range : <=4.0. The reference r fermín was not used to int erpret this result as normal/abnormal . [facility] CenterMbnfndpTGTARJRJLV8460-57-63 10:13:00 Test Item Value Reference Range Interpretation Comments Basophils (test code = 1.0 See_Comment [Aut omated message] The Basophils) system which ge nerated this result tra nsmitted reference range : <=1.0. The reference r fermín was not used to int erpret this result as normal/abnormal . [place] [address]-10-10 10:13:00 Test Item Value Reference Range Interpretation Comments Neutrophils # (test code = Neutrophils 3.4 1.5-8.1 #) [facility] CenterKrdifytJRSZGXYFPK2029-81-58 10:13:00 Test Item Value Reference Range Interpretation Comments Lymphocytes # (test code = Lymphocytes 0.8 1.0-5.5 #) [facility] CenterIaplvdyJGKWZVPNOB3876-38-41 10:13:00 Test Item Value Reference Range Interpretation Comments Monocytes # (test code 0.5 See_Comment [Aut omated message] The = Monocytes #) system which generated this result tra nsmitted reference range : <=0.8. The reference r fermín was not used to int erpret this result as normal/abnormal . [facility] CenterEdouceaVDOGNCDFUK1543-24-43 10:13:00 Test Item Value Reference Range Interpretation Comments Eosinophils # (test code 0.1 See_Comment [A utomated message] The = Eosinophils #) system whic h generated this result tra nsmitted reference range : <=0.5. The reference r fermín was not used to int erpret this result as normal/abnormal . [facility] CenterAnftaogOCWJJKNIMQ8992-98-93 10:13:00 Test Item Value Reference Range Interpretation Comments WBC (test code = WBC) 4.8 3.7-10.4 [facility] CenterRvjunzmCYLHGPGQUB0459-73-77 10:13:00 Test Item Value Reference Range Interpretation Comments RBC (test code = RBC) 3.97 4.20-5.40 [facility] CenterVrdyxtvMNAFYMTKGP8124-79-43 10:13:00 Test Item Value Reference Range Interpretation Comments Hgb (test code = Hgb) 12.2 12.0-16.0 [place] 861682-10-10 10:13:00 Test Item Value Reference Range Interpretation Comments Hct (test code = Hct) 36.9 36.0-48.0 [place] 861682-10-10 10:13:00 Test Item Value Reference Range Interpretation Comments MCV (test code = MCV) 92.8 80.0-98.0 [place] 861682-10-10 10:13:00 Test Item Value Reference Range Interpretation Comments MCH (test code = MCH) 30.7 pg 27.0-31.0 [place] 861682-10-10 10:13:00 Test Item Value Reference Range Interpretation Comments MCHC (test code = MCHC) 33.1 32.0-36.0 [facility] CenterCqmghulYSGGMFVQTR0344-42-87 10:13:00 Test Item Value Reference Range Interpretation Comments RDW (test code = RDW) 13.3 11.5-14.5 [facility]AlqdmofCZXKDNPNBC4816-13-14 10:13:00 Test Item Value Reference Range Interpretation Comments Platelet (test code = Platelet) 125 133-450 [facility]BsmbvatZZRCGJBPSF0013-93-35 10:13:00 Test Item Value Reference Range Interpretation Comments MPV (test code = MPV) 8.9 7.4-10.4 [facility] SoutheastDxknmdtRNZRCX6479-90-25 10:13:00 Test Item Value Reference Range Interpretation Comments Trig (test code = Trig) 115 [facility] SoutheastPpmpnpnTDESSK3361-45-04 10:13:00 Test Item Value Reference Range Interpretation Comments Chol (test code = Chol) 191 [facility] SoutheastZrbzbovCLFNTE9986-99-40 10:13:00 Test Item Value Reference Range Interpretation Comments HDL (test code = HDL) 55 [facility]PylksssMKRMWL0708-49-90 10:13:00 Test Item Value Reference Range Interpretation Comments CHD Risk (test code = CHD Risk) 3.47 1 3.90-5.80 [facility] SoutheastQzvlzopDHLCDE0851-66-55 10:13:00 Test Item Value Reference Range Interpretation Comments LDL (Calculated) (test code = LDL 113 (Calculated)) [facility] SoutheastWlstbrfTWHRAS1510-87-37 10:13:00 Test Item Value Reference Range Interpretation Comments VLDL (test code = VLDL) 23 1 [facility] XPBIGUHJE8704-65-74 10:13:00 Test Item Value Reference Range Interpretation Comments Hgb A1C (test code = Hgb A1C) 5.9 [facility] ORYDF9040-66-29 10:13:00 Test Item Value Reference Range Interpretation Comments Glucose Lvl (test code = Glucose Lvl) 90 70-99 [facility]2022-10-10 10:13:00 Test Item Value Reference Range Interpretation Comments BUN (test code = BUN) 11 7-22 [facility]2022-10-10 10:13:00 Test Item Value Reference Range Interpretation Comments Creatinine Lvl (test code = Creatinine 0.84 0.50-1.40 Lvl) [facility]2022-10-10 10:13:00 Test Item Value Reference Range Interpretation Comments Sodium Lvl (test code = Sodium Lvl) 140 135-145 [facility]2022-10-10 10:13:00 Test Item Value Reference Range Interpretation Comments Potassium Lvl (test code = Potassium 4.2 3.5-5.1 Lvl) [place] 115182-10-10 10:13:00 Test Item Value Reference Range Interpretation Comments Chloride Lvl (test code = Chloride Lvl) 108 95-109 [place] 115182-10-10 10:13:00 Test Item Value Reference Range Interpretation Comments CO2 (test code = CO2) 27 24-32 [place] 115182-10-10 10:13:00 Test Item Value Reference Range Interpretation Comments Calcium Lvl (test code = Calcium Lvl) 8.8 8.5-10.5 [place] 115182-10-10 10:13:00 Test Item Value Reference Range Interpretation Comments AGAP (test code = AGAP) 9.2 10.0-20.0 [facility]2022-10-10 10:13:00 Test Item Value Reference Range Interpretation Comments eGFR (test code = eGFR) 70 [facility] CenterXphipyvLHVEAUMYF1799-35-36 10:13:00 Test Item Value Reference Range Interpretation Comments Trig (test code = Trig) 115 [facility] CenterTnknwesAEGPDCPDL3227-17-38 10:13:00 Test Item Value Reference Range Interpretation Comments Chol (test code = Chol) 191 [facility] CenterQveimeiWRVCLSXOK4254-73-02 10:13:00 Test Item Value Reference Range Interpretation Comments HDL (test code = HDL) 55 [facility] CenterJnystkbTHKXTGBRP5301-49-56 10:13:00 Test Item Value Reference Range Interpretation Comments CHD Risk (test code = CHD Risk) 3.47 1 3.90-5.80 [place] 059282-10-10 10:13:00 Test Item Value Reference Range Interpretation Comments LDL (Calculated) (test code = LDL 113 (Calculated)) [place] 059282-10-10 10:13:00 Test Item Value Reference Range Interpretation Comments VLDL (test code = VLDL) 23 1 [place] 059282-10-10 10:13:00 Test Item Value Reference Range Interpretation Comments Hgb A1C (test code = Hgb A1C) 5.9 [place] 059282-10-10 10:13:00 Test Item Value Reference Range Interpretation Comments Glucose Lvl (test code = Glucose Lvl) 90 70-99 [facility] CenterFvpurgrTPPQCSLKI8546-83-88 10:13:00 Test Item Value Reference Range Interpretation Comments BUN (test code = BUN) 11 7-22 [facility] CenterRtmdnyaNREOAYMWZ9468-85-74 10:13:00 Test Item Value Reference Range Interpretation Comments Creatinine Lvl (test code = Creatinine 0.84 0.50-1.40 Lvl) [facility] CenterTtsqygiIGEMCTPGL8067-51-26 10:13:00 Test Item Value Reference Range Interpretation Comments Sodium Lvl (test code = Sodium Lvl) 140 135-145 [facility] CenterWeknchuRLHFRZDAU6806-03-97 10:13:00 Test Item Value Reference Range Interpretation Comments Potassium Lvl (test code = Potassium 4.2 3.5-5.1 Lvl) [facility] CenterTciszzhDZIPYUJYP0993-75-72 10:13:00 Test Item Value Reference Range Interpretation Comments Chloride Lvl (test code = Chloride Lvl) 108 95-109 [facility] CenterAuqswicOYLWDZGKO2806-09-64 10:13:00 Test Item Value Reference Range Interpretation Comments CO2 (test code = CO2) 27 24-32 [facility] CenterLopemktHOXBMMMAB3715-89-11 10:13:00 Test Item Value Reference Range Interpretation Comments Calcium Lvl (test code = Calcium Lvl) 8.8 8.5-10.5 [facility] CenterRqojsotXNTVCFNXK9583-70-64 10:13:00 Test Item Value Reference Range Interpretation Comments AGAP (test code = AGAP) 9.2 10.0-20.0 [facility]VfcyyalXXKGVGMXL1304-89-83 10:13:00 Test Item Value Reference Range Interpretation Comments eGFR (test code = eGFR) 70 [facility]InmszukPZMEHCSLWP2578-49-37 10:13:00 Test Item Value Reference Range Interpretation Comments Segs (test code = Segs) 70.2 45.0-75.0 [facility] CenterQrsktkkQJHINLZNAX6411-97-18 10:13:00 Test Item Value Reference Range Interpretation Comments Lymphocytes (test code = Lymphocytes) 17.1 20.0-40.0 [facility] CenterVyijedmUWUBGLTHQI1427-57-43 10:13:00 Test Item Value Reference Range Interpretation Comments Monocytes (test code = Monocytes) 9.6 2.0-12.0 [facility] CenterYuiqtjrJFMFUQKHKD2572-78-47 10:13:00 Test Item Value Reference Range Interpretation Comments Eosinophils (test code = 2.1 See_Comment [A utomated message] The Eosinophils) system which ge nerated this result tra nsmitted reference range : <=4.0. The reference r fermín was not used to int erpret this result as normal/abnormal . [place] 861682-10-10 10:13:00 Test Item Value Reference Range Interpretation Comments Basophils (test code = 1.0 See_Comment [Aut omated message] The Basophils) system which ge nerated this result tra nsmitted reference range : <=1.0. The reference r fermín was not used to int erpret this result as normal/abnormal . [facility] CenterHfruokwIILAZQAERG9866-47-87 10:13:00 Test Item Value Reference Range Interpretation Comments Neutrophils # (test code = Neutrophils 3.4 1.5-8.1 #) [facility] CenterToyuascGJLBMOEBDB4458-35-51 10:13:00 Test Item Value Reference Range Interpretation Comments Lymphocytes # (test code = Lymphocytes 0.8 1.0-5.5 #) [facility] CenterCfrqrukUUFPDWYRYH3846-10-87 10:13:00 Test Item Value Reference Range Interpretation Comments Monocytes # (test code 0.5 See_Comment [Aut omated message] The = Monocytes #) system which generated this result tra nsmitted reference range : <=0.8. The reference r fermín was not used to int erpret this result as normal/abnormal . [facility] CenterKteurjgBUOEKBEWQT2935-47-66 10:13:00 Test Item Value Reference Range Interpretation Comments Eosinophils # (test code 0.1 See_Comment [A utomated message] The = Eosinophils #) system whic h generated this result tra nsmitted reference range : <=0.5. The reference r fermín was not used to int erpret this result as normal/abnormal . [facility] CenterJqxcxmnPTEXJUKRJK5327-82-31 10:13:00 Test Item Value Reference Range Interpretation Comments WBC (test code = WBC) 4.8 3.7-10.4 [facility] CenterQgnlqjlLIKAQCRNZP8188-66-52 10:13:00 Test Item Value Reference Range Interpretation Comments RBC (test code = RBC) 3.97 4.20-5.40 [place] 861682-10-10 10:13:00 Test Item Value Reference Range Interpretation Comments Hgb (test code = Hgb) 12.2 12.0-16.0 [facility] CenterEdnjmlgOHRQVJPHHD6533-92-34 10:13:00 Test Item Value Reference Range Interpretation Comments Hct (test code = Hct) 36.9 36.0-48.0 [facility] CenterGmvzaydKAFLXECLVS4028-23-06 10:13:00 Test Item Value Reference Range Interpretation Comments MCV (test code = MCV) 92.8 80.0-98.0 [facility] CenterGybxjwxIPXEARLFUD8244-25-26 10:13:00 Test Item Value Reference Range Interpretation Comments MCH (test code = MCH) 30.7 pg 27.0-31.0 [facility] CenterRkcdkfpASDROMCGZS6830-32-15 10:13:00 Test Item Value Reference Range Interpretation Comments MCHC (test code = MCHC) 33.1 32.0-36.0 [facility] CenterUcfgifuXXOZVQSUIC6641-65-60 10:13:00 Test Item Value Reference Range Interpretation Comments RDW (test code = RDW) 13.3 11.5-14.5 [facility] CenterIwpxhynBCQRMYFMXS9638-12-22 10:13:00 Test Item Value Reference Range Interpretation Comments Platelet (test code = Platelet) 125 133-450 [facility] CenterMsolmsnAPMZJTXEPA4647-20-20 10:13:00 Test Item Value Reference Range Interpretation Comments MPV (test code = MPV) 8.9 7.4-10.4 [facility] CenterXajsjmbUMMQVWXHDO5594-85-49 10:13:00 Test Item Value Reference Range Interpretation Comments Segs (test code = Segs) 70.2 45.0-75.0 [facility] CenterFjxgjmvNFMZXTWSDC7112-28-67 10:13:00 Test Item Value Reference Range Interpretation Comments Lymphocytes (test code = Lymphocytes) 17.1 20.0-40.0 [facility] CenterKnqonohVVZECNTTJI1249-71-96 10:13:00 Test Item Value Reference Range Interpretation Comments Monocytes (test code = Monocytes) 9.6 2.0-12.0 [facility] CenterXzylzfuZUXSDVCTZZ1389-58-91 10:13:00 Test Item Value Reference Range Interpretation Comments Eosinophils (test code = 2.1 See_Comment [A utomated message] The Eosinophils) system which ge nerated this result tra nsmitted reference range : <=4.0. The reference r fermín was not used to int erpret this result as normal/abnormal . [place] [address]-10-10 10:13:00 Test Item Value Reference Range Interpretation Comments Basophils (test code = 1.0 See_Comment [Aut omated message] The Basophils) system which ge nerated this result tra nsmitted reference range : <=1.0. The reference r fermín was not used to int erpret this result as normal/abnormal . [facility] CenterTfcfkqtYPAZDRFTPS2178-92-36 10:13:00 Test Item Value Reference Range Interpretation Comments Neutrophils # (test code = Neutrophils 3.4 1.5-8.1 #) [facility] CenterVpuzmjiORYICXXMWB3804-17-63 10:13:00 Test Item Value Reference Range Interpretation Comments Lymphocytes # (test code = Lymphocytes 0.8 1.0-5.5 #) [facility] CenterSffzhcgVSTTUZFUCP2510-87-89 10:13:00 Test Item Value Reference Range Interpretation Comments Monocytes # (test code 0.5 See_Comment [Aut omated message] The = Monocytes #) system which generated this result tra nsmitted reference range : <=0.8. The reference r fermín was not used to int erpret this result as normal/abnormal . [facility] CenterKqkbaqsELLLVITZOF0878-39-78 10:13:00 Test Item Value Reference Range Interpretation Comments Eosinophils # (test code 0.1 See_Comment [A utomated message] The = Eosinophils #) system whic h generated this result tra nsmitted reference range : <=0.5. The reference r fermín was not used to int erpret this result as normal/abnormal . [facility] CenterOxvegywSAKGYYAHGQ7573-45-10 10:13:00 Test Item Value Reference Range Interpretation Comments WBC (test code = WBC) 4.8 3.7-10.4 [place] 861682-10-10 10:13:00 Test Item Value Reference Range Interpretation Comments RBC (test code = RBC) 3.97 4.20-5.40 [place] 861682-10-10 10:13:00 Test Item Value Reference Range Interpretation Comments Hgb (test code = Hgb) 12.2 12.0-16.0 [place] 861682-10-10 10:13:00 Test Item Value Reference Range Interpretation Comments Hct (test code = Hct) 36.9 36.0-48.0 [place] 861682-10-10 10:13:00 Test Item Value Reference Range Interpretation Comments MCV (test code = MCV) 92.8 80.0-98.0 [facility]iwjhnwPPDWQJVXTX8431-28-58 10:13:00 Test Item Value Reference Range Interpretation Comments MCH (test code = MCH) 30.7 pg 27.0-31.0 [facility]PjteavsMJYCRJXZLE4001-62-68 10:13:00 Test Item Value Reference Range Interpretation Comments MCHC (test code = MCHC) 33.1 32.0-36.0 [facility]PvzfgscYOATMUSBWK3988-07-61 10:13:00 Test Item Value Reference Range Interpretation Comments RDW (test code = RDW) 13.3 11.5-14.5 [facility]intZcrtcgzDVMFSWTMCR0466-45-21 10:13:00 Test Item Value Reference Range Interpretation Comments Platelet (test code = Platelet) 125 133-450 [facility] CenterZjzxaiuOJDVCULDEP8092-09-23 10:13:00 Test Item Value Reference Range Interpretation Comments MPV (test code = MPV) 8.9 7.4-10.4 [facility]Pfva[facility]tPSOWKY0393-32-67 10:13:00 Test Item Value Reference Range Interpretation Comments Trig (test code = Trig) 115 [facility] SoutheastEnrzcvhQWAPYW2002-46-02 10:13:00 Test Item Value Reference Range Interpretation Comments Chol (test code = Chol) 191 [facility] SoutheastYkopwndDDLTBL0737-52-88 10:13:00 Test Item Value Reference Range Interpretation Comments HDL (test code = HDL) 55 [facility] SoutheastWutjpgcJSGUKH6495-24-56 10:13:00 Test Item Value Reference Range Interpretation Comments CHD Risk (test code = CHD Risk) 3.47 1 3.90-5.80 [facility] SoutheastFmvrdrfOITQBP2273-44-48 10:13:00 Test Item Value Reference Range Interpretation Comments LDL (Calculated) (test code = LDL 113 (Calculated)) [facility] SoutheastMxadjjmSERRUM8781-25-69 10:13:00 Test Item Value Reference Range Interpretation Comments VLDL (test code = VLDL) 23 1 [facility] QVFZGPDFY5692-11-57 10:13:00 Test Item Value Reference Range Interpretation Comments Hgb A1C (test code = Hgb A1C) 5.9 [facility] SoutheastCHEM FQMOI7970-00-60 10:13:00 Test Item Value Reference Range Interpretation Comments Glucose Lvl (test code = Glucose Lvl) 90 70-99 [facility]2022-10-10 10:13:00 Test Item Value Reference Range Interpretation Comments BUN (test code = BUN) 11 7-22 [place] 115182-10-10 10:13:00 Test Item Value Reference Range Interpretation Comments Creatinine Lvl (test code = Creatinine 0.84 0.50-1.40 Lvl) [facility]2022-10-10 10:13:00 Test Item Value Reference Range Interpretation Comments Sodium Lvl (test code = Sodium Lvl) 140 135-145 [place] 115182-10-10 10:13:00 Test Item Value Reference Range Interpretation Comments Potassium Lvl (test code = Potassium 4.2 3.5-5.1 Lvl) [place] 115182-10-10 10:13:00 Test Item Value Reference Range Interpretation Comments Chloride Lvl (test code = Chloride Lvl) 108 95-109 [place] 115182-10-10 10:13:00 Test Item Value Reference Range Interpretation Comments CO2 (test code = CO2) 27 24-32 [place] 115182-10-10 10:13:00 Test Item Value Reference Range Interpretation Comments Calcium Lvl (test code = Calcium Lvl) 8.8 8.5-10.5 [facility]2022-10-10 10:13:00 Test Item Value Reference Range Interpretation Comments AGAP (test code = AGAP) 9.2 10.0-20.0 [facility]2022-10-10 10:13:00 Test Item Value Reference Range Interpretation Comments eGFR (test code = eGFR) 70 [facility] CenterEaaaihyEXEVGQXXG9606-33-90 10:13:00 Test Item Value Reference Range Interpretation Comments Trig (test code = Trig) 115 [place] [address]-10-10 10:13:00 Test Item Value Reference Range Interpretation Comments Chol (test code = Chol) 191 [facility] CenterSnwjljeOZUIWNXBR6616-74-57 10:13:00 Test Item Value Reference Range Interpretation Comments HDL (test code = HDL) 55 [facility] CenterLuvrddhZUDSBCNGI7344-88-68 10:13:00 Test Item Value Reference Range Interpretation Comments CHD Risk (test code = CHD Risk) 3.47 1 3.90-5.80 [facility] CenterBifeffyWXIYJDXPD3118-32-94 10:13:00 Test Item Value Reference Range Interpretation Comments LDL (Calculated) (test code = LDL 113 (Calculated)) [facility] CenterBeojrylUERARLRSE1776-76-21 10:13:00 Test Item Value Reference Range Interpretation Comments VLDL (test code = VLDL) 23 1 [place] 059282-10-10 10:13:00 Test Item Value Reference Range Interpretation Comments Hgb A1C (test code = Hgb A1C) 5.9 [facility] CenterWtxqhnbJUOYREPZA3281-20-95 10:13:00 Test Item Value Reference Range Interpretation Comments Glucose Lvl (test code = Glucose Lvl) 90 70-99 [facility] CenterLqjqdofPYKDNUUZS4151-15-10 10:13:00 Test Item Value Reference Range Interpretation Comments BUN (test code = BUN) 11 7-22 [facility] CenterUlqgfomAEUYAXUFK8060-00-19 10:13:00 Test Item Value Reference Range Interpretation Comments Creatinine Lvl (test code = Creatinine 0.84 0.50-1.40 Lvl) [facility] CenterRyyeelwCTJMKANJX1459-81-95 10:13:00 Test Item Value Reference Range Interpretation Comments Sodium Lvl (test code = Sodium Lvl) 140 135-145 [facility] CenterYxsfmyyDMUCLFCDX5049-83-37 10:13:00 Test Item Value Reference Range Interpretation Comments Potassium Lvl (test code = Potassium 4.2 3.5-5.1 Lvl) [facility] CenterZpoceutNAUMBACQG1653-36-85 10:13:00 Test Item Value Reference Range Interpretation Comments Chloride Lvl (test code = Chloride Lvl) 108 95-109 [facility] CenterGiudbfkBRCFLYRJY1022-47-05 10:13:00 Test Item Value Reference Range Interpretation Comments CO2 (test code = CO2) 27 24-32 [facility] CenterKvutvgpKIZKFXCNV7511-81-94 10:13:00 Test Item Value Reference Range Interpretation Comments Calcium Lvl (test code = Calcium Lvl) 8.8 8.5-10.5 [facility] CenterObcafnwLSYKCLAXG1814-40-29 10:13:00 Test Item Value Reference Range Interpretation Comments AGAP (test code = AGAP) 9.2 10.0-20.0 [facility] CenterPgeorpwBILOZGYTA6189-07-20 10:13:00 Test Item Value Reference Range Interpretation Comments eGFR (test code = eGFR) 70 [facility] CenterBgscyevUTSJRIPMXZ5524-12-82 10:13:00 Test Item Value Reference Range Interpretation Comments Segs (test code = Segs) 70.2 45.0-75.0 [facility] CenterIbdlhjsFXYDFRUOFU9637-52-58 10:13:00 Test Item Value Reference Range Interpretation Comments Lymphocytes (test code = Lymphocytes) 17.1 20.0-40.0 [facility] CenterZfvaxfsAOYXUXOHZX2024-29-87 10:13:00 Test Item Value Reference Range Interpretation Comments Monocytes (test code = Monocytes) 9.6 2.0-12.0 [place] 76762022-10-09 22:21:21 Test Item Value Reference Range Interpretation Comments RADRPT (test code Patient Name: JUSTINE = MARTINA) TREMIEDOB: 1940; Age: 81 years y/o FemaleMR: [id number]: Brain wo contrast MRI 02/12/2022 14:17Ordering Physician: [...] change/lacunar infarctions.Critical findings discussed with Dr. Brandon Hampton MD via [employer] at 02/12/2022 17:32 [CRIT] [facility] 22:21:21 Test Item Value Reference Range Interpretation Comments RADRPT (test code Patient Name: JUSTINE = MARTINA) TREMIEDOB: 1940; Age: 81 years y/o FemaleMR: [id number]: Brain wo contrast MRI 02/12/2022 14:17Ordering Physician: Brandon Hampton [facility] ALT[facility]linical Indication: - r/o cva;Comparison: Today's CT and [...] change/lacunar infarctions.Critical findings discussed with Dr. Brandon Hampton MD via [employer] at 02/12/2022 17:32 [CRIT] [facility]BayezepEEVQBB8854-33-90 22:21:21 Test Item Value Reference Range Interpretation Comments RADRPT (test code Patient Name: JUSTINE = MARTINA) TREMIEDOB: 1940; Age: 81 years y/o FemaleMR: [id number]: Brain wo contrast MRI 02/12/2022 14:17Ordering Physician: [...] change/lacunar infarctions.Critical findings discussed with Dr. Brandon Hampton MD via [employer] at 02/12/2022 17:32 [CRIT] [facility] SoutheastSmmkpgiFOMWWU4038-83-36 22:21:21 Test Item Value Reference Range Interpretation Comments MARTINA (test code Patient Name: JUSTINE = MARTINA) TREMIEDOB: 1940; Age: 81 years y/o FemaleMR: [id number]: Brain wo contrast MRI 02/12/2022 14:17Ordering Physician: [...] change/lacunar infarctions.Critical findings discussed with Dr. Brandon Hampton MD via [employer] at 02/12/2022 17:32 [CRIT] [facility] SoutheastTveqttlUKUYEL5754-61-78 22:21:21 Test Item Value Reference Range Interpretation Comments RADRPVu (test code Patient Name: JUSTINE = MARTINA) TREMIEDOB: 1940; Age: 81 years y/o FemaleMR: [id number]: Brain wo contrast MRI 02/12/2022 14:17Ordering Physician: [...] change/lacunar infarctions.Critical findings discussed with Dr. Brandon Hampton MD via [employer] at 02/12/2022 17:32 [CRIT] [facility]SoetdphIXDIBZOIMI9377-10-72 20:45:00 Test Item Value Reference Range Interpretation Comments Coronavirus (COVID-19) Not Detected (02/12/22 DIMAS (test code = 3:45 PM) Coronavirus (COVID-19) DIMAS) [facility] HospitalAaqvvkjEACYRKHVRP3522-62-76 20:45:00 Test Item Value Reference Range Interpretation Comments Coronavirus (COVID-19) Not Detected (02/12/22 DIMAS (test code = 3:45 PM) Coronavirus (COVID-19) DIMAS) [facility] HospitalDtepfflOYDXBHZIGU4537-34-06 20:45:00 Test Item Value Reference Range Interpretation Comments Coronavirus (COVID-19) Not Detected (02/12/22 DIMAS (test code = 3:45 PM) Coronavirus (COVID-19) DIMAS) [facility] HospitalSsrtwsrRUVXDNMREX5503-45-06 20:45:00 Test Item Value Reference Range Interpretation Comments Coronavirus (COVID-19) Not Detected (02/12/22 DIMAS (test code = 3:45 PM) Coronavirus (COVID-19) DIMAS) [facility] HospitalPziiqdnCVBHWWTHWV0477-90-60 20:45:00 Test Item Value Reference Range Interpretation Comments Coronavirus (COVID-19) Not Detected (02/12/22 DIMAS (test code = 3:45 PM) Coronavirus (COVID-19) DIMAS) [place] [address]-10-09 20:45:00 Test Item Value Reference Range Interpretation Comments Coronavirus (COVID-19) Not Detected (02/12/22 DIMAS (test code = 3:45 PM) Coronavirus (COVID-19) DIMAS) [place] [address]-10-09 20:45:00 Test Item Value Reference Range Interpretation Comments Coronavirus (COVID-19) Not Detected (02/12/22 DIMAS (test code = 3:45 PM) Coronavirus (COVID-19) DIMAS) [place] [address]-10-09 20:45:00 Test Item Value Reference Range Interpretation Comments Coronavirus (COVID-19) Not Detected (02/12/22 DIMAS (test code = 3:45 PM) Coronavirus (COVID-19) DIMAS) [place] [address]-10-09 20:45:00 Test Item Value Reference Range Interpretation Comments Coronavirus (COVID-19) Not Detected (02/12/22 DIMAS (test code = 3:45 PM) Coronavirus (COVID-19) DIMAS) [facility] HospitalIsffwxeUPHRDRCWMS3292-94-36 20:45:00 Test Item Value Reference Range Interpretation Comments Coronavirus (COVID-19) Not Detected (02/12/22 DIMAS (test code = 3:45 PM) Coronavirus (COVID-19) DIMAS) [facility] CenterJnwtsihQCMQWHVBIS5184-23-32 12:38:00 Test Item Value Reference Range Interpretation Comments MCV (test code = MCV) 94.0 80.0-98.0 [place] 861682-10-09 12:38:00 Test Item Value Reference Range Interpretation Comments MCH (test code = MCH) 30.9 pg 27.0-31.0 [facility] CenterEkhxyyvKFUMAHBOTK0307-14-78 12:38:00 Test Item Value Reference Range Interpretation Comments MCHC (test code = MCHC) 32.9 32.0-36.0 [place] 861682-10-09 12:38:00 Test Item Value Reference Range Interpretation Comments RDW (test code = RDW) 13.3 11.5-14.5 [place] 861682-10-09 12:38:00 Test Item Value Reference Range Interpretation Comments Platelet (test code = Platelet) 150 133-450 [place] 861682-10-09 12:38:00 Test Item Value Reference Range Interpretation Comments MPV (test code = MPV) 8.7 7.4-10.4 [place] 861682-10-09 12:38:00 Test Item Value Reference Range Interpretation Comments Segs (test code = Segs) 73.9 45.0-75.0 [place] 861682-10-09 12:38:00 Test Item Value Reference Range Interpretation Comments Lymphocytes (test code = Lymphocytes) 13.8 20.0-40.0 [place] [address]-10-09 12:38:00 Test Item Value Reference Range Interpretation Comments Monocytes (test code = Monocytes) 8.6 2.0-12.0 [place] 861682-10-09 12:38:00 Test Item Value Reference Range Interpretation Comments Eosinophils (test code = 2.5 See_Comment [A utomated message] The Eosinophils) system which ge nerated this result tra nsmitted reference range : <=4.0. The reference r fermín was not used to int erpret this result as normal/abnormal . [place] 861682-10-09 12:38:00 Test Item Value Reference Range Interpretation Comments Basophils (test code = 1.2 See_Comment [Aut omated message] The Basophils) system which ge nerated this result tra nsmitted reference range : <=1.0. The reference r fermín was not used to int erpret this result as normal/abnormal . [facility] CenterZawqlidVUBSTSOIYU6405-96-54 12:38:00 Test Item Value Reference Range Interpretation Comments Neutrophils # (test code = Neutrophils 4.5 1.5-8.1 #) [place] 861682-10-09 12:38:00 Test Item Value Reference Range Interpretation Comments Lymphocytes # (test code = Lymphocytes 0.8 1.0-5.5 #) [place] 861682-10-09 12:38:00 Test Item Value Reference Range Interpretation Comments Monocytes # (test code 0.5 See_Comment [Aut omated message] The = Monocytes #) system which generated this result tra nsmitted reference range : <=0.8. The reference r fermín was not used to int erpret this result as normal/abnormal . [place] 861682-10-09 12:38:00 Test Item Value Reference Range Interpretation Comments Eosinophils # (test code 0.2 See_Comment [A utomated message] The = Eosinophils #) system whic h generated this result tra nsmitted reference range : <=0.5. The reference r fermín was not used to int erpret this result as normal/abnormal . [facility] CenterSljymyhYWTHUAZFIH2314-02-80 12:38:00 Test Item Value Reference Range Interpretation Comments Basophils # (test code 0.1 See_Comment [Aut omated message] The = Basophils #) system which generated this result tra nsmitted reference range : <=0.2. The reference r fermín was not used to int erpret this result as normal/abnormal . [place] 994762-10-09 12:38:00 Test Item Value Reference Range Interpretation Comments Ethanol Lvl (test code = Ethanol Lvl) no gt [facility]AqvcivfYLHWGUYORQ1212-54-48 12:38:00 Test Item Value Reference Range Interpretation Comments Etoh (%) (test code = Etoh (%)) no gt [facility]2022-10-09 12:38:00 Test Item Value Reference Range Interpretation Comments Glucose Lvl (test code = Glucose Lvl) 100 70-99 [facility] SoutheastSoftoCoupon WCDYW7775-28-57 12:38:00 Test Item Value Reference Range Interpretation Comments BUN (test code = BUN) 14 7-22 [facility] LJSTG8500-59-63 12:38:00 Test Item Value Reference Range Interpretation Comments Creatinine Lvl (test code = Creatinine 0.98 0.50-1.40 Lvl) [place] 115182-10-09 12:38:00 Test Item Value Reference Range Interpretation Comments Sodium Lvl (test code = Sodium Lvl) 139 135-145 [facility] WVLHQ0976-55-64 12:38:00 Test Item Value Reference Range Interpretation Comments Potassium Lvl (test code = Potassium 4.2 3.5-5.1 Lvl) [place] [address]-10-09 12:38:00 Test Item Value Reference Range Interpretation Comments Chloride Lvl (test code = Chloride Lvl) 108 95-109 [place] 115182-10-09 12:38:00 Test Item Value Reference Range Interpretation Comments CO2 (test code = CO2) 27 24-32 [place] 115182-10-09 12:38:00 Test Item Value Reference Range Interpretation Comments Calcium Lvl (test code = Calcium Lvl) 9.5 8.5-10.5 [facility]2022-10-09 12:38:00 Test Item Value Reference Range Interpretation Comments Total Protein (test code = Total 7.4 6.4-8.4 Protein) [place] 115182-10-09 12:38:00 Test Item Value Reference Range Interpretation Comments Albumin Lvl (test code = Albumin Lvl) 3.6 3.5-5.0 [facility]2022-10-09 12:38:00 Test Item Value Reference Range Interpretation Comments ALT (test code = ALT) 21 <=65 [place] 115182-10-09 12:38:00 Test Item Value Reference Range Interpretation Comments AST (test code = AST) 24 <=37 [place] 115182-10-09 12:38:00 Test Item Value Reference Range Interpretation Comments Alk Phos (test code = Alk Phos) 71 39-136 [facility]2022-10-09 12:38:00 Test Item Value Reference Range Interpretation Comments Bili Total (test code = Bili Total) 0.5 0.2-1.3 [place] 115182-10-09 12:38:00 Test Item Value Reference Range Interpretation Comments AGAP (test code = AGAP) 8.2 10.0-20.0 [place] 115182-10-09 12:38:00 Test Item Value Reference Range Interpretation Comments B/C Ratio (test code = B/C Ratio) 14 1 6-25 [place] 115182-10-09 12:38:00 Test Item Value Reference Range Interpretation Comments Globulin (test code = Globulin) 3.8 2.7-4.2 [place] 115182-10-09 12:38:00 Test Item Value Reference Range Interpretation Comments A/G Ratio (test code = A/G Ratio) 0.9 1 0.7-1.6 [facility]2022-10-09 12:38:00 Test Item Value Reference Range Interpretation Comments eGFR (test code = eGFR) 58 [facility]2022-10-09 12:38:00 Test Item Value Reference Range Interpretation Comments Lipase Lvl (test code = Lipase Lvl) 35 73-393 [place] 861682-10-09 12:38:00 Test Item Value Reference Range Interpretation Comments WBC (test code = WBC) 6.1 3.7-10.4 [place] 861682-10-09 12:38:00 Test Item Value Reference Range Interpretation Comments RBC (test code = RBC) 4.17 4.20-5.40 [place] 861682-10-09 12:38:00 Test Item Value Reference Range Interpretation Comments Hgb (test code = Hgb) 12.9 12.0-16.0 [place] [address]-10-09 12:38:00 Test Item Value Reference Range Interpretation Comments Hct (test code = Hct) 39.2 36.0-48.0 [place] 861682-10-09 12:38:00 Test Item Value Reference Range Interpretation Comments MCV (test code = MCV) 94.0 80.0-98.0 [place] 861682-10-09 12:38:00 Test Item Value Reference Range Interpretation Comments MCH (test code = MCH) 30.9 pg 27.0-31.0 [place] 861682-10-09 12:38:00 Test Item Value Reference Range Interpretation Comments MCHC (test code = MCHC) 32.9 32.0-36.0 [place] [address]-10-09 12:38:00 Test Item Value Reference Range Interpretation Comments RDW (test code = RDW) 13.3 11.5-14.5 [place] 861682-10-09 12:38:00 Test Item Value Reference Range Interpretation Comments Platelet (test code = Platelet) 150 133-450 [place] 861682-10-09 12:38:00 Test Item Value Reference Range Interpretation Comments MPV (test code = MPV) 8.7 7.4-10.4 [place] 861682-10-09 12:38:00 Test Item Value Reference Range Interpretation Comments Segs (test code = Segs) 73.9 45.0-75.0 [facility]TTNFVWZBYN8063[facility]94-99 12:38:00 Test Item Value Reference Range Interpretation Comments Lymphocytes (test code = Lymphocytes) 13.8 20.0-40.0 [facility]AjribsoLAEREFZPEO5934-70-98 12:38:00 Test Item Value Reference Range Interpretation Comments Monocytes (test code = Monocytes) 8.6 2.0-12.0 [facility] CenterJmvdcodKVUFAQHAHG4770-30-76 12:38:00 Test Item Value Reference Range Interpretation Comments Eosinophils (test code = Eosinophils) 2.5 <=4.0 [facility] CenterPxyzymtKNFOZBSWDT7981-48-10 12:38:00 Test Item Value Reference Range Interpretation Comments Basophils (test code = Basophils) 1.2 <=1.0 [facility] CenterEztlhmkTBRSKQJTQB3065-81-85 12:38:00 Test Item Value Reference Range Interpretation Comments Neutrophils # (test code = Neutrophils 4.5 1.5-8.1 #) [facility] CenterLrylukeSGUYNXWSOS2359-71-92 12:38:00 Test Item Value Reference Range Interpretation Comments Lymphocytes # (test code = Lymphocytes 0.8 1.0-5.5 #) [facility] CenterDoxglhdBLIWWVWKNO8230-70-32 12:38:00 Test Item Value Reference Range Interpretation Comments Monocytes # (test code = Monocytes #) 0.5 <=0.8 [facility] CenterUsyiuthDSFVQDQNBE1720-62-52 12:38:00 Test Item Value Reference Range Interpretation Comments Eosinophils # (test code = Eosinophils 0.2 <=0.5 #) [facility] CenterLfecmpoGZSVKYXCQM6094-26-48 12:38:00 Test Item Value Reference Range Interpretation Comments Basophils # (test code = Basophils #) 0.1 <=0.2 [facility]ZmbgmepUWUXBAQMYB1567-43-19 12:38:00 Test Item Value Reference Range Interpretation Comments Ethanol Lvl (test code = Ethanol Lvl) [facility] gt [facility]yjuXECWKBMTZW9748-57-59 12:38:00 Test Item Value Reference Range Interpretation Comments Etoh (%) (test code = Etoh (%)) no gt [facility]CHEM MXKDP6265-59-69 12:38:00 Test Item Value Reference Range Interpretation Comments Glucose Lvl (test code = Glucose Lvl) 100 70-99 [place] 115182-10-09 12:38:00 Test Item Value Reference Range Interpretation Comments BUN (test code = BUN) 14 7-22 [place] [address]-10-09 12:38:00 Test Item Value Reference Range Interpretation Comments Creatinine Lvl (test code = Creatinine 0.98 0.50-1.40 Lvl) [place] 115182-10-09 12:38:00 Test Item Value Reference Range Interpretation Comments Sodium Lvl (test code = Sodium Lvl) 139 135-145 [place] [address]-10-09 12:38:00 Test Item Value Reference Range Interpretation Comments Potassium Lvl (test code = Potassium 4.2 3.5-5.1 Lvl) [place] 115182-10-09 12:38:00 Test Item Value Reference Range Interpretation Comments Chloride Lvl (test code = Chloride Lvl) 108 95-109 [place] 115182-10-09 12:38:00 Test Item Value Reference Range Interpretation Comments CO2 (test code = CO2) 27 24-32 [place] 115182-10-09 12:38:00 Test Item Value Reference Range Interpretation Comments Calcium Lvl (test code = Calcium Lvl) 9.5 8.5-10.5 [place] 115182-10-09 12:38:00 Test Item Value Reference Range Interpretation Comments Total Protein (test code = Total 7.4 6.4-8.4 Protein) [place] 115182-10-09 12:38:00 Test Item Value Reference Range Interpretation Comments Albumin Lvl (test code = Albumin Lvl) 3.6 3.5-5.0 [place] 115182-10-09 12:38:00 Test Item Value Reference Range Interpretation Comments ALT (test code = ALT) 21 See_Comment [Auto mated message] The system which ge nerated this result transmit kalie reference range : <=65. The reference range was not used to interpr et this result as phyllis l/abnormal. [place] 115182-10-09 12:38:00 Test Item Value Reference Range Interpretation Comments AST (test code = AST) 24 See_Comment [Auto mated message] The system which ge nerated this result transmit kalie reference range : <=37. The reference range was not used to interpr et this result as phyllis l/abnormal. [place] 115182-10-09 12:38:00 Test Item Value Reference Range Interpretation Comments Alk Phos (test code = Alk Phos) 71 39-136 [place] [address]-10-09 12:38:00 Test Item Value Reference Range Interpretation Comments Bili Total (test code = Bili Total) 0.5 0.2-1.3 [place] [address]-10-09 12:38:00 Test Item Value Reference Range Interpretation Comments AGAP (test code = AGAP) 8.2 10.0-20.0 [place] [address]-10-09 12:38:00 Test Item Value Reference Range Interpretation Comments B/C Ratio (test code = B/C Ratio) 14 1 6-25 [place] [address]-10-09 12:38:00 Test Item Value Reference Range Interpretation Comments Globulin (test code = Globulin) 3.8 2.7-4.2 [place] 115182-10-09 12:38:00 Test Item Value Reference Range Interpretation Comments A/G Ratio (test code = A/G Ratio) 0.9 1 0.7-1.6 [place] [address]-10-09 12:38:00 Test Item Value Reference Range Interpretation Comments eGFR (test code = eGFR) 58 [place] 115182-10-09 12:38:00 Test Item Value Reference Range Interpretation Comments Lipase Lvl (test code = Lipase Lvl) 35 73-393 [place] 861682-10-09 12:38:00 Test Item Value Reference Range Interpretation Comments WBC (test code = WBC) 6.1 3.7-10.4 [place] [address]-10-09 12:38:00 Test Item Value Reference Range Interpretation Comments RBC (test code = RBC) 4.17 4.20-5.40 [place] [address]-10-09 12:38:00 Test Item Value Reference Range Interpretation Comments Hgb (test code = Hgb) 12.9 12.0-16.0 [place] [address]-10-09 12:38:00 Test Item Value Reference Range Interpretation Comments Hct (test code = Hct) 39.2 36.0-48.0 [place] [address]-10-09 12:38:00 Test Item Value Reference Range Interpretation Comments MCV (test code = MCV) 94.0 80.0-98.0 [place] [address]-10-09 12:38:00 Test Item Value Reference Range Interpretation Comments MCH (test code = MCH) 30.9 pg 27.0-31.0 [place] 861682-10-09 12:38:00 Test Item Value Reference Range Interpretation Comments MCHC (test code = MCHC) 32.9 32.0-36.0 [place] [address]-10-09 12:38:00 Test Item Value Reference Range Interpretation Comments RDW (test code = RDW) 13.3 11.5-14.5 [place] [address]-10-09 12:38:00 Test Item Value Reference Range Interpretation Comments Platelet (test code = Platelet) 150 133-450 [place] 861682-10-09 12:38:00 Test Item Value Reference Range Interpretation Comments MPV (test code = MPV) 8.7 7.4-10.4 [place] [address]-10-09 12:38:00 Test Item Value Reference Range Interpretation Comments Segs (test code = Segs) 73.9 45.0-75.0 [place] 861682-10-09 12:38:00 Test Item Value Reference Range Interpretation Comments Lymphocytes (test code = Lymphocytes) 13.8 20.0-40.0 [place] 861682-10-09 12:38:00 Test Item Value Reference Range Interpretation Comments Monocytes (test code = Monocytes) 8.6 2.0-12.0 [place] [address]-10-09 12:38:00 Test Item Value Reference Range Interpretation Comments Eosinophils (test code = 2.5 See_Comment [A utomated message] The Eosinophils) system which ge nerated this result tra nsmitted reference range : <=4.0. The reference r fermín was not used to int erpret this result as normal/abnormal . [place] [address]-10-09 12:38:00 Test Item Value Reference Range Interpretation Comments Basophils (test code = 1.2 See_Comment [Aut omated message] The Basophils) system which ge nerated this result tra nsmitted reference range : <=1.0. The reference r fermín was not used to int erpret this result as normal/abnormal . [place] 861682-10-09 12:38:00 Test Item Value Reference Range Interpretation Comments Neutrophils # (test code = Neutrophils 4.5 1.5-8.1 #) [facility]GqttiufAEVQUMWZVQ4765-82-11 12:38:00 Test Item Value Reference Range Interpretation Comments Lymphocytes # (test code = Lymphocytes 0.8 1.0-5.5 #) [place] 861682-10-09 12:38:00 Test Item Value Reference Range Interpretation Comments Monocytes # (test code 0.5 See_Comment [Aut omated message] The = Monocytes #) system which generated this result tra nsmitted reference range : <=0.8. The reference r fermín was not used to int erpret this result as normal/abnormal . [facility] CenterAdpfpxhQYATMSRLTK1008-65-77 12:38:00 Test Item Value Reference Range Interpretation Comments Eosinophils # (test code 0.2 See_Comment [A utomated message] The = Eosinophils #) system whic h generated this result tra nsmitted reference range : <=0.5. The reference r fermín was not used to int erpret this result as normal/abnormal . [facility] CenterVnmrtgeGBIHJCENWN4666-36-86 12:38:00 Test Item Value Reference Range Interpretation Comments Basophils # (test code 0.1 See_Comment [Aut omated message] The = Basophils #) system which generated this result tra nsmitted reference range : <=0.2. The reference r fermín was not used to int erpret this result as normal/abnormal . [place] 94954022-10-09 12:38:00 Test Item Value Reference Range Interpretation Comments Ethanol Lvl (test code = Ethanol Lvl) no gt [place] 994762-10-09 12:38:00 Test Item Value Reference Range Interpretation Comments Etoh (%) (test code = Etoh (%)) no gt [facility]2022-10-09 12:38:00 Test Item Value Reference Range Interpretation Comments Glucose Lvl (test code = Glucose Lvl) 100 70-99 [place] 115182-10-09 12:38:00 Test Item Value Reference Range Interpretation Comments BUN (test code = BUN) 14 7-22 [place] [address]-10-09 12:38:00 Test Item Value Reference Range Interpretation Comments Creatinine Lvl (test code = Creatinine 0.98 0.50-1.40 Lvl) [place] 115182-10-09 12:38:00 Test Item Value Reference Range Interpretation Comments Sodium Lvl (test code = Sodium Lvl) 139 135-145 [place] 115182-10-09 12:38:00 Test Item Value Reference Range Interpretation Comments Potassium Lvl (test code = Potassium 4.2 3.5-5.1 Lvl) [place] [address]-10-09 12:38:00 Test Item Value Reference Range Interpretation Comments Chloride Lvl (test code = Chloride Lvl) 108 95-109 [place] 115182-10-09 12:38:00 Test Item Value Reference Range Interpretation Comments CO2 (test code = CO2) 27 24-32 [place] 115182-10-09 12:38:00 Test Item Value Reference Range Interpretation Comments Calcium Lvl (test code = Calcium Lvl) 9.5 8.5-10.5 [place] 115182-10-09 12:38:00 Test Item Value Reference Range Interpretation Comments Total Protein (test code = Total 7.4 6.4-8.4 Protein) [place] 115182-10-09 12:38:00 Test Item Value Reference Range Interpretation Comments Albumin Lvl (test code = Albumin Lvl) 3.6 3.5-5.0 [place] 115182-10-09 12:38:00 Test Item Value Reference Range Interpretation Comments ALT (test code = ALT) 21 See_Comment [Auto mated message] The system which ge nerated this result transmit kalie reference range : <=65. The reference range was not used to interpr et this result as phyllis l/abnormal. [place] 115182-10-09 12:38:00 Test Item Value Reference Range Interpretation Comments AST (test code = AST) 24 See_Comment [Auto mated message] The system which ge nerated this result transmit kalie reference range : <=37. The reference range was not used to interpr et this result as phyllis l/abnormal. [place] [address]-10-09 12:38:00 Test Item Value Reference Range Interpretation Comments Alk Phos (test code = Alk Phos) 71 39-136 [place] 115182-10-09 12:38:00 Test Item Value Reference Range Interpretation Comments Bili Total (test code = Bili Total) 0.5 0.2-1.3 [place] 115182-10-09 12:38:00 Test Item Value Reference Range Interpretation Comments AGAP (test code = AGAP) 8.2 10.0-20.0 [place] 115182-10-09 12:38:00 Test Item Value Reference Range Interpretation Comments B/C Ratio (test code = B/C Ratio) 14 1 6-25 [place] 115182-10-09 12:38:00 Test Item Value Reference Range Interpretation Comments Globulin (test code = Globulin) 3.8 2.7-4.2 [place] 115182-10-09 12:38:00 Test Item Value Reference Range Interpretation Comments A/G Ratio (test code = A/G Ratio) 0.9 1 0.7-1.6 [place] [address]-10-09 12:38:00 Test Item Value Reference Range Interpretation Comments eGFR (test code = eGFR) 58 [place] 115182-10-09 12:38:00 Test Item Value Reference Range Interpretation Comments Lipase Lvl (test code = Lipase Lvl) 35 73-393 [place] 861682-10-09 12:38:00 Test Item Value Reference Range Interpretation Comments WBC (test code = WBC) 6.1 3.7-10.4 [place] 861682-10-09 12:38:00 Test Item Value Reference Range Interpretation Comments RBC (test code = RBC) 4.17 4.20-5.40 [place] [address]-10-09 12:38:00 Test Item Value Reference Range Interpretation Comments Hgb (test code = Hgb) 12.9 12.0-16.0 [place] [address]-10-09 12:38:00 Test Item Value Reference Range Interpretation Comments Hct (test code = Hct) 39.2 36.0-48.0 [place] [address]-10-09 12:38:00 Test Item Value Reference Range Interpretation Comments MCV (test code = MCV) 94.0 80.0-98.0 [facility] CenterUvremckYUSPEZWGCJ8065-66-37 12:38:00 Test Item Value Reference Range Interpretation Comments MCH (test code = MCH) 30.9 pg 27.0-31.0 [facility] CenterMgoghxnRTYFIMHFYP2094-83-24 12:38:00 Test Item Value Reference Range Interpretation Comments MCHC (test code = MCHC) 32.9 32.0-36.0 [facility] CenterJtnrdwyVXLRPPDWMS7084-43-97 12:38:00 Test Item Value Reference Range Interpretation Comments RDW (test code = RDW) 13.3 11.5-14.5 [place] 861682-10-09 12:38:00 Test Item Value Reference Range Interpretation Comments Platelet (test code = Platelet) 150 133-450 [facility] CenterUhmghngDORFGMPVRP7933-30-61 12:38:00 Test Item Value Reference Range Interpretation Comments MPV (test code = MPV) 8.7 7.4-10.4 [facility] CenterVzpzikvSDQZAXCCJB1034-17-50 12:38:00 Test Item Value Reference Range Interpretation Comments Segs (test code = Segs) 73.9 45.0-75.0 [facility] CenterRcxxdvdIVIOYJKGZT3798-01-00 12:38:00 Test Item Value Reference Range Interpretation Comments Lymphocytes (test code = Lymphocytes) 13.8 20.0-40.0 [facility] CenterJvcpigbLUTKXDDKVD1299-60-77 12:38:00 Test Item Value Reference Range Interpretation Comments Monocytes (test code = Monocytes) 8.6 2.0-12.0 [facility] CenterYulecvcXIHGGVTOTO8116-08-34 12:38:00 Test Item Value Reference Range Interpretation Comments Eosinophils (test code = 2.5 See_Comment [A utomated message] The Eosinophils) system which ge nerated this result tra nsmitted reference range : <=4.0. The reference r fermín was not used to int erpret this result as normal/abnormal . [place] 861682-10-09 12:38:00 Test Item Value Reference Range Interpretation Comments Basophils (test code = 1.2 See_Comment [Aut omated message] The Basophils) system which ge nerated this result tra nsmitted reference range : <=1.0. The reference r fermín was not used to int erpret this result as normal/abnormal . [place] [address]-10-09 12:38:00 Test Item Value Reference Range Interpretation Comments Neutrophils # (test code = Neutrophils 4.5 1.5-8.1 #) [place] 861682-10-09 12:38:00 Test Item Value Reference Range Interpretation Comments Lymphocytes # (test code = Lymphocytes 0.8 1.0-5.5 #) [place] [address]-10-09 12:38:00 Test Item Value Reference Range Interpretation Comments Monocytes # (test code 0.5 See_Comment [Aut omated message] The = Monocytes #) system which generated this result tra nsmitted reference range : <=0.8. The reference r fermín was not used to int erpret this result as normal/abnormal . [place] 861682-10-09 12:38:00 Test Item Value Reference Range Interpretation Comments Eosinophils # (test code 0.2 See_Comment [A utomated message] The = Eosinophils #) system whic h generated this result tra nsmitted reference range : <=0.5. The reference r fermín was not used to int erpret this result as normal/abnormal . [place] [address]-10-09 12:38:00 Test Item Value Reference Range Interpretation Comments Basophils # (test code 0.1 See_Comment [Aut omated message] The = Basophils #) system which generated this result tra nsmitted reference range : <=0.2. The reference r fermín was not used to int erpret this result as normal/abnormal . [place] 994762-10-09 12:38:00 Test Item Value Reference Range Interpretation Comments Ethanol Lvl (test code = Ethanol Lvl) no gt [place] 994762-10-09 12:38:00 Test Item Value Reference Range Interpretation Comments Etoh (%) (test code = Etoh (%)) no gt [place] 115182-10-09 12:38:00 Test Item Value Reference Range Interpretation Comments Glucose Lvl (test code = Glucose Lvl) 100 70-99 [place] 115182-10-09 12:38:00 Test Item Value Reference Range Interpretation Comments BUN (test code = BUN) 14 7-22 [place] 115182-10-09 12:38:00 Test Item Value Reference Range Interpretation Comments Creatinine Lvl (test code = Creatinine 0.98 0.50-1.40 Lvl) [place] 115182-10-09 12:38:00 Test Item Value Reference Range Interpretation Comments Sodium Lvl (test code = Sodium Lvl) 139 135-145 [place] 115182-10-09 12:38:00 Test Item Value Reference Range Interpretation Comments Potassium Lvl (test code = Potassium 4.2 3.5-5.1 Lvl) [place] 115182-10-09 12:38:00 Test Item Value Reference Range Interpretation Comments Chloride Lvl (test code = Chloride Lvl) 108 95-109 [place] 115182-10-09 12:38:00 Test Item Value Reference Range Interpretation Comments CO2 (test code = CO2) 27 24-32 [place] 115182-10-09 12:38:00 Test Item Value Reference Range Interpretation Comments Calcium Lvl (test code = Calcium Lvl) 9.5 8.5-10.5 [place] 115182-10-09 12:38:00 Test Item Value Reference Range Interpretation Comments Total Protein (test code = Total 7.4 6.4-8.4 Protein) [place] 115182-10-09 12:38:00 Test Item Value Reference Range Interpretation Comments Albumin Lvl (test code = Albumin Lvl) 3.6 3.5-5.0 [place] 115182-10-09 12:38:00 Test Item Value Reference Range Interpretation Comments ALT (test code = ALT) 21 See_Comment [Auto mated message] The system which 5211game nerated this result transmit kalie reference range : <=65. The reference range was not used to interpr et this result as phyllis l/abnormal. [place] 115182-10-09 12:38:00 Test Item Value Reference Range Interpretation Comments AST (test code = AST) 24 See_Comment [Auto mated message] The system which 5211game nerated this result transmit kalie reference range : <=37. The reference range was not used to interpr et this result as phyllis l/abnormal. [place] 115182-10-09 12:38:00 Test Item Value Reference Range Interpretation Comments Alk Phos (test code = Alk Phos) 71 39-136 [place] [address]-10-09 12:38:00 Test Item Value Reference Range Interpretation Comments Bili Total (test code = Bili Total) 0.5 0.2-1.3 [place] 115182-10-09 12:38:00 Test Item Value Reference Range Interpretation Comments AGAP (test code = AGAP) 8.2 10.0-20.0 [place] 115182-10-09 12:38:00 Test Item Value Reference Range Interpretation Comments B/C Ratio (test code = B/C Ratio) 14 1 6-25 [place] [address]-10-09 12:38:00 Test Item Value Reference Range Interpretation Comments Globulin (test code = Globulin) 3.8 2.7-4.2 [place] 115182-10-09 12:38:00 Test Item Value Reference Range Interpretation Comments A/G Ratio (test code = A/G Ratio) 0.9 1 0.7-1.6 [place] [address]-10-09 12:38:00 Test Item Value Reference Range Interpretation Comments eGFR (test code = eGFR) 58 [place] 115182-10-09 12:38:00 Test Item Value Reference Range Interpretation Comments Lipase Lvl (test code = Lipase Lvl) 35 73-393 [place] 861682-10-09 12:38:00 Test Item Value Reference Range Interpretation Comments WBC (test code = WBC) 6.1 3.7-10.4 [place] [address]-10-09 12:38:00 Test Item Value Reference Range Interpretation Comments RBC (test code = RBC) 4.17 4.20-5.40 [place] [address]-10-09 12:38:00 Test Item Value Reference Range Interpretation Comments Hgb (test code = Hgb) 12.9 12.0-16.0 [place] [address]-10-09 12:38:00 Test Item Value Reference Range Interpretation Comments Hct (test code = Hct) 39.2 36.0-48.0 [place] [address]-10-09 12:38:00 Test Item Value Reference Range Interpretation Comments MCV (test code = MCV) 94.0 80.0-98.0 [place] [address]-10-09 12:38:00 Test Item Value Reference Range Interpretation Comments MCH (test code = MCH) 30.9 pg 27.0-31.0 [facility]TobjlzjDRUQKRIBSB5032-37-08 12:38:00 Test Item Value Reference Range Interpretation Comments MCHC (test code = MCHC) 32.9 32.0-36.0 [place] 861682-10-09 12:38:00 Test Item Value Reference Range Interpretation Comments RDW (test code = RDW) 13.3 11.5-14.5 [facility] CenterGgzpqllEBEVGORXED2164-33-99 12:38:00 Test Item Value Reference Range Interpretation Comments Platelet (test code = Platelet) 150 133-450 [facility] CenterDyzlfaeYDCPWEGIPZ7840-43-92 12:38:00 Test Item Value Reference Range Interpretation Comments MPV (test code = MPV) 8.7 7.4-10.4 [facility] CenterRycmgcxBMCMKIQXHF9992-31-89 12:38:00 Test Item Value Reference Range Interpretation Comments Segs (test code = Segs) 73.9 45.0-75.0 [facility] CenterLpksjnaFVDYSNNVZP2119-72-78 12:38:00 Test Item Value Reference Range Interpretation Comments Lymphocytes (test code = Lymphocytes) 13.8 20.0-40.0 [place] 861682-10-09 12:38:00 Test Item Value Reference Range Interpretation Comments Monocytes (test code = Monocytes) 8.6 2.0-12.0 [facility] CenterJadkcvvWVMHAHIJHO4288-14-82 12:38:00 Test Item Value Reference Range Interpretation Comments Eosinophils (test code = 2.5 See_Comment [A utomated message] The Eosinophils) system which ge nerated this result tra nsmitted reference range : <=4.0. The reference r fermín was not used to int erpret this result as normal/abnormal . [facility] CenterTjtndkdICCNKALUYP6303-80-73 12:38:00 Test Item Value Reference Range Interpretation Comments Basophils (test code = 1.2 See_Comment [Aut omated message] The Basophils) system which ge nerated this result tra nsmitted reference range : <=1.0. The reference r fermín was not used to int erpret this result as normal/abnormal . [place] 861682-10-09 12:38:00 Test Item Value Reference Range Interpretation Comments Neutrophils # (test code = Neutrophils 4.5 1.5-8.1 #) [facility] CenterOrjksmgCAGYIKMIPE3829-78-83 12:38:00 Test Item Value Reference Range Interpretation Comments Lymphocytes # (test code = Lymphocytes 0.8 1.0-5.5 #) [facility] CenterUlzagsxHUQOUYLRMB9495-50-79 12:38:00 Test Item Value Reference Range Interpretation Comments Monocytes # (test code 0.5 See_Comment [Aut omated message] The = Monocytes #) system which generated this result tra nsmitted reference range : <=0.8. The reference r fermín was not used to int erpret this result as normal/abnormal . [facility] CenterEckkirnUXLLGYBKVT9690-94-02 12:38:00 Test Item Value Reference Range Interpretation Comments Eosinophils # (test code 0.2 See_Comment [A utomated message] The = Eosinophils #) system whic h generated this result tra nsmitted reference range : <=0.5. The reference r fermín was not used to int erpret this result as normal/abnormal . [facility]RWTRFDSKVN9483[facility] 12:38:00 Test Item Value Reference Range Interpretation Comments Basophils # (test code 0.1 See_Comment [Aut omated message] The = Basophils #) system which generated this result tra nsmitted reference range : <=0.2. The reference r fermín was not used to int erpret this result as normal/abnormal . [place] [id number] 12:38:00 Test Item Value Reference Range Interpretation Comments Ethanol Lvl (test code = Ethanol Lvl) no gt [place] 994762-10-09 12:38:00 Test Item Value Reference Range Interpretation Comments Etoh (%) (test code = Etoh (%)) no gt [facility]2022-10-09 12:38:00 Test Item Value Reference Range Interpretation Comments Glucose Lvl (test code = Glucose Lvl) 100 70-99 [place] 115182-10-09 12:38:00 Test Item Value Reference Range Interpretation Comments BUN (test code = BUN) 14 7-22 [place] 115182-10-09 12:38:00 Test Item Value Reference Range Interpretation Comments Creatinine Lvl (test code = Creatinine 0.98 0.50-1.40 Lvl) [facility]2022-10-09 12:38:00 Test Item Value Reference Range Interpretation Comments Sodium Lvl (test code = Sodium Lvl) 139 135-145 [place] 115182-10-09 12:38:00 Test Item Value Reference Range Interpretation Comments Potassium Lvl (test code = Potassium 4.2 3.5-5.1 Lvl) [place] 115182-10-09 12:38:00 Test Item Value Reference Range Interpretation Comments Chloride Lvl (test code = Chloride Lvl) 108 95-109 [place] 115182-10-09 12:38:00 Test Item Value Reference Range Interpretation Comments CO2 (test code = CO2) 27 24-32 [place] 115182-10-09 12:38:00 Test Item Value Reference Range Interpretation Comments Calcium Lvl (test code = Calcium Lvl) 9.5 8.5-10.5 [place] [address]-10-09 12:38:00 Test Item Value Reference Range Interpretation Comments Total Protein (test code = Total 7.4 6.4-8.4 Protein) [place] 115182-10-09 12:38:00 Test Item Value Reference Range Interpretation Comments Albumin Lvl (test code = Albumin Lvl) 3.6 3.5-5.0 [place] 115182-10-09 12:38:00 Test Item Value Reference Range Interpretation Comments ALT (test code = ALT) 21 See_Comment [Auto mated message] The system which ge nerated this result transmit kalie reference range : <=65. The reference range was not used to interpr et this result as phyllis l/abnormal. [place] 115182-10-09 12:38:00 Test Item Value Reference Range Interpretation Comments AST (test code = AST) 24 See_Comment [Auto mated message] The system which ge nerated this result transmit aklie reference range : <=37. The reference range was not used to interpr et this result as phyllis l/abnormal. [place] 115182-10-09 12:38:00 Test Item Value Reference Range Interpretation Comments Alk Phos (test code = Alk Phos) 71 39-136 [place] 115182-10-09 12:38:00 Test Item Value Reference Range Interpretation Comments Bili Total (test code = Bili Total) 0.5 0.2-1.3 [facility]2022-10-09 12:38:00 Test Item Value Reference Range Interpretation Comments AGAP (test code = AGAP) 8.2 10.0-20.0 [facility]2022-10-09 12:38:00 Test Item Value Reference Range Interpretation Comments B/C Ratio (test code = B/C Ratio) 14 1 6-25 [facility]2022-10-09 12:38:00 Test Item Value Reference Range Interpretation Comments Globulin (test code = Globulin) 3.8 2.7-4.2 [facility]2022-10-09 12:38:00 Test Item Value Reference Range Interpretation Comments A/G Ratio (test code = A/G Ratio) 0.9 1 0.7-1.6 [facility]2022-10-09 12:38:00 Test Item Value Reference Range Interpretation Comments eGFR (test code = eGFR) 58 [facility]2022-10-09 12:38:00 Test Item Value Reference Range Interpretation Comments Lipase Lvl (test code = Lipase Lvl) 35 73-393 [facility]XcqgkjeZKVSFHCJHL5601-22-77 12:38:00 Test Item Value Reference Range Interpretation Comments WBC (test code = WBC) 6.1 3.7-10.4 [facility]ChglzvqUXMQWIMRPN5314-40-19 12:38:00 Test Item Value Reference Range Interpretation Comments RBC (test code = RBC) 4.17 4.20-5.40 [facility] CenterHopnzrtAVBZNLJETI0012-46-59 12:38:00 Test Item Value Reference Range Interpretation Comments Hgb (test code = Hgb) 12.9 12.0-16.0 [facility] CenterSyyvjpqIPZNSCWIGH3946-67-57 12:38:00 Test Item Value Reference Range Interpretation Comments Hct (test code = Hct) 39.2 36.0-48.0 [facility] VLYPCCJ7819[facility]00-59 16:33:00 Test Item Value Reference Range Interpretation Comments HS Troponin I (test code = HS Troponin 11 I) [facility]2022-10-05 16:33:00 Test Item Value Reference Range Interpretation Comments Glucose Lvl (test code = Glucose Lvl) 117 70-99 [facility]2022-10-05 16:33:00 Test Item Value Reference Range Interpretation Comments BUN (test code = BUN) 23 7-22 [facility]2022-10-05 16:33:00 Test Item Value Reference Range Interpretation Comments Creatinine Lvl (test code = Creatinine 1.00 0.50-1.40 Lvl) [place] 115182-10-05 16:33:00 Test Item Value Reference Range Interpretation Comments Sodium Lvl (test code = Sodium Lvl) 141 135-145 [facility]2022-10-05 16:33:00 Test Item Value Reference Range Interpretation Comments Potassium Lvl (test code = Potassium 4.5 3.5-5.1 Lvl) [place] 115182-10-05 16:33:00 Test Item Value Reference Range Interpretation Comments Chloride Lvl (test code = Chloride Lvl) 111 95-109 [place] 115182-10-05 16:33:00 Test Item Value Reference Range Interpretation Comments CO2 (test code = CO2) 26 24-32 [place] 115182-10-05 16:33:00 Test Item Value Reference Range Interpretation Comments Calcium Lvl (test code = Calcium Lvl) 9.7 8.5-10.5 [facility]2022-10-05 16:33:00 Test Item Value Reference Range Interpretation Comments AGAP (test code = AGAP) 8.5 10.0-20.0 [facility]2022-10-05 16:33:00 Test Item Value Reference Range Interpretation Comments eGFR (test code = eGFR) 56 [facility]2022-10-05 16:33:00 Test Item Value Reference Range Interpretation Comments Total Protein (test code = Total 7.7 6.4-8.4 Protein) [place] 115182-10-05 16:33:00 Test Item Value Reference Range Interpretation Comments Albumin Lvl (test code = Albumin Lvl) 3.8 3.5-5.0 [place] 115182-10-05 16:33:00 Test Item Value Reference Range Interpretation Comments ALT (test code = ALT) 26 See_Comment [Auto mated message] The system which ge nerated this result transmit kalie reference range : <=65. The reference range was not used to interpr et this result as phyllis l/abnormal. [place] [address]-10-05 16:33:00 Test Item Value Reference Range Interpretation Comments AST (test code = AST) 24 See_Comment [Auto mated message] The system which ge nerated this result transmit kalie reference range : <=37. The reference range was not used to interpr et this result as phyllis l/abnormal. [address]10-05 16:33:00 Test Item Value Reference Range Interpretation Comments Alk Phos (test code = Alk Phos) 75 39-136 [place] [address]-10-05 16:33:00 Test Item Value Reference Range Interpretation Comments Bili Total (test code = Bili Total) 0.3 0.2-1.3 [address]10-05 16:33:00 Test Item Value Reference Range Interpretation Comments Bili Direct (test code 0.1 See_Comment [Aut omated message] The = Bili Direct) system which generated this result tra nsmitted reference range : <=0.3. The reference r fermín was not used to int erpret this result as phyllis l/abnormal. [address]10-05 16:33:00 Test Item Value Reference Range Interpretation Comments Bili Indirect (test 0.2 See_Comment [Automa kalie message] The code = Bili Indirect) system which generated this result tra nsmitted reference range : <=1.0. The reference r fermín was not used to int erpret this result as normal/abnormal . [address]10-05 16:33:00 Test Item Value Reference Range Interpretation Comments Globulin (test code = Globulin) 3.9 2.7-4.[address]10-05 16:33:00 Test Item Value Reference Range Interpretation Comments A/G Ratio (test code = A/G Ratio) 1.0 1 0.7-1.6 [address]10-05 16:33:00 Test Item Value Reference Range Interpretation Comments WBC (test code = WBC) 5.9 3.7-10.4 [address]10-05 16:33:00 Test Item Value Reference Range Interpretation Comments RBC (test code = RBC) 4.33 4.20-5.40 [address]10-05 16:33:00 Test Item Value Reference Range Interpretation Comments Hgb (test code = Hgb) 13.1 12.0-16.0 [facility]XygfyxqMZLQODRSQF8269-02-58 16:33:00 Test Item Value Reference Range Interpretation Comments Hct (test code = Hct) 40.7 36.0-48.0 [facility] CenterEdqlbsuJZJBOLIGVG5075-41-94 16:33:00 Test Item Value Reference Range Interpretation Comments MCV (test code = MCV) 94.0 80.0-98.0 [facility] CenterDuicgmhMZXXKTWGZD7069-08-09 16:33:00 Test Item Value Reference Range Interpretation Comments MCH (test code = MCH) 30.3 pg 27.0-31.0 [facility] CenterLvgayrnRXIEFTSHLT8250-76-50 16:33:00 Test Item Value Reference Range Interpretation Comments MCHC (test code = MCHC) 32.3 32.0-36.0 [facility] CenterEgwybbpODNAFFGCSE1013-68-12 16:33:00 Test Item Value Reference Range Interpretation Comments RDW (test code = RDW) 13.8 11.5-14.5 [facility] CenterYlbaileDWTOCTNMZL6465-90-18 16:33:00 Test Item Value Reference Range Interpretation Comments Platelet (test code = Platelet) 149 133-450 [facility] CenterKjtrnvuMCPOWOZCLF3821-20-60 16:33:00 Test Item Value Reference Range Interpretation Comments MPV (test code = MPV) 9.0 7.4-10.4 [facility] CenterQximhqyPCVXPSQUDT9309-30-06 16:33:00 Test Item Value Reference Range Interpretation Comments PT (test code = PT) See Note 3(02/08/22 11:33 12.0-14.7 AM) [facility] CenterQvxfyhqNMVBSSMDJZ1734-27-98 16:33:00 Test Item Value Reference Range Interpretation Comments INR (test code = INR) See Note 2(02/08/22 0.85-1.17 11:33 AM) [place] [address]-10-05 16:33:00 Test Item Value Reference Range Interpretation Comments PTT (test code = PTT) See Note 4(02/08/22 22.9-35.8 11:33 AM) [facility] CenterJrmwnltWZVSAZULUO4782-73-40 16:33:00 Test Item Value Reference Range Interpretation Comments Segs (test code = Segs) 79.2 45.0-75.0 [facility] CenterMpuibqiCWXRZYZGFB2979-19-59 16:33:00 Test Item Value Reference Range Interpretation Comments Lymphocytes (test code = Lymphocytes) 11.9 20.0-40.0 [facility] CenterIdgdozhNNWJMKMCDB2892-45-72 16:33:00 Test Item Value Reference Range Interpretation Comments Monocytes (test code = Monocytes) 6.9 2.0-12.0 [facility] CenterMjbsoikLSQBKXGTPW9950-39-38 16:33:00 Test Item Value Reference Range Interpretation Comments Eosinophils (test code = 1.1 See_Comment [A utomated message] The Eosinophils) system which ge nerated this result tra nsmitted reference range : <=4.0. The reference r fermín was not used to int erpret this result as normal/abnormal . [facility] CenterTlvfskgFYJKXOLMBQ0196-01-60 16:33:00 Test Item Value Reference Range Interpretation Comments Basophils (test code = 0.9 See_Comment [Aut omated message] The Basophils) system which ge nerated this result tra nsmitted reference range : <=1.0. The reference r fermín was not used to int erpret this result as normal/abnormal . [facility] CenterHdtcfjtUVSIMOHNLQ2195-62-06 16:33:00 Test Item Value Reference Range Interpretation Comments Neutrophils # (test code = Neutrophils 4.7 1.5-8.1 #) [facility] CenterOxobnmrKNREVGAKUK0318-30-77 16:33:00 Test Item Value Reference Range Interpretation Comments Lymphocytes # (test code = Lymphocytes 0.7 1.0-5.5 #) [facility] CenterFcsssznVOONHJMZAL8514-63-00 16:33:00 Test Item Value Reference Range Interpretation Comments Monocytes # (test code 0.4 See_Comment [Aut omated message] The = Monocytes #) system which generated this result tra nsmitted reference range : <=0.8. The reference r fermín was not used to int erpret this result as normal/abnormal . [facility] CenterWhpcjcxKFKJLWJTBR7343-64-18 16:33:00 Test Item Value Reference Range Interpretation Comments Eosinophils # (test code 0.1 See_Comment [A utomated message] The = Eosinophils #) system whic h generated this result tra nsmitted reference range : <=0.5. The reference r fermín was not used to int erpret this result as normal/abnormal . [place] [address]-10-05 16:33:00 Test Item Value Reference Range Interpretation Comments Basophils # (test code 0.1 See_Comment [Aut omated message] The = Basophils #) system which generated this result tra nsmitted reference range : <=0.2. The reference r fermín was not used to int erpret this result as normal/abnormal . [facility] [id number] 16:33:00 Test Item Value Reference Range Interpretation Comments HS Troponin I (test code = HS Troponin 11 I) [facility] [id number] 16:33:00 Test Item Value Reference Range Interpretation Comments Glucose Lvl (test code = Glucose Lvl) 117 70-99 [facility]2022-10-05 16:33:00 Test Item Value Reference Range Interpretation Comments BUN (test code = BUN) 23 7-22 [facility]2022-10-05 16:33:00 Test Item Value Reference Range Interpretation Comments Creatinine Lvl (test code = Creatinine 1.00 0.50-1.40 Lvl) [facility]2022-10-05 16:33:00 Test Item Value Reference Range Interpretation Comments Sodium Lvl (test code = Sodium Lvl) 141 135-145 [facility]2022-10-05 16:33:00 Test Item Value Reference Range Interpretation Comments Potassium Lvl (test code = Potassium 4.5 3.5-5.1 Lvl) [facility]2022-10-05 16:33:00 Test Item Value Reference Range Interpretation Comments Chloride Lvl (test code = Chloride Lvl) 111 95-109 [facility]2022-10-05 16:33:00 Test Item Value Reference Range Interpretation Comments CO2 (test code = CO2) 26 24-32 [facility]2022-10-05 16:33:00 Test Item Value Reference Range Interpretation Comments Calcium Lvl (test code = Calcium Lvl) 9.7 8.5-10.5 [facility]2022-10-05 16:33:00 Test Item Value Reference Range Interpretation Comments AGAP (test code = AGAP) 8.5 10.0-20.0 [facility]2022-10-05 16:33:00 Test Item Value Reference Range Interpretation Comments eGFR (test code = eGFR) [address]10-05 16:33:00 Test Item Value Reference Range Interpretation Comments Total Protein (test code = Total 7.7 6.4-8.4 Protein) [address]10-05 16:33:00 Test Item Value Reference Range Interpretation Comments Albumin Lvl (test code = Albumin Lvl) 3.8 3.5-5.0 [address]10-05 16:33:00 Test Item Value Reference Range Interpretation Comments ALT (test code = ALT) 26 See_Comment [Auto mated message] The system which ge nerated this result transmit kalie reference range : <=65. The reference range was not used to interpr et this result as phyllis l/abnormal. [address]10-05 16:33:00 Test Item Value Reference Range Interpretation Comments AST (test code = AST) 24 See_Comment [Auto mated message] The system which ge nerated this result transmit kalie reference range : <=37. The reference range was not used to interpr et this result as phyllis l/abnormal. [address]10-05 16:33:00 Test Item Value Reference Range Interpretation Comments Alk Phos (test code = Alk Phos) 75 39-136 [address]10-05 16:33:00 Test Item Value Reference Range Interpretation Comments Bili Total (test code = Bili Total) 0.3 0.2-1.3 [address]05 16:33:00 Test Item Value Reference Range Interpretation Comments Bili Direct (test code 0.1 See_Comment [Aut omated message] The = Bili Direct) system which generated this result tra nsmitted reference range : <=0.3. The reference r fermín was not used to int erpret this result as phyllis l/abnormal. [address]05 16:33:00 Test Item Value Reference Range Interpretation Comments Bili Indirect (test 0.2 See_Comment [Automa kalie message] The code = Bili Indirect) system which generated this result tra nsmitted reference range : <=1.0. The reference r fermín was not used to int erpret this result as normal/abnormal . [address]10-05 16:33:00 Test Item Value Reference Range Interpretation Comments Globulin (test code = Globulin) 3.9 2.7-4.2 [facility]2022-10-05 16:33:00 Test Item Value Reference Range Interpretation Comments A/G Ratio (test code = A/G Ratio) 1.0 1 0.7-1.6 [facility] CenterGkmprjpXOLFHTMEZN7652-59-09 16:33:00 Test Item Value Reference Range Interpretation Comments WBC (test code = WBC) 5.9 3.7-10.4 [facility] CenterVpmrrfdEULSBIVBFN4666-10-25 16:33:00 Test Item Value Reference Range Interpretation Comments RBC (test code = RBC) 4.33 4.20-5.40 [facility] CenterVkczertJVYPBRBLXU7390-84-37 16:33:00 Test Item Value Reference Range Interpretation Comments Hgb (test code = Hgb) 13.1 12.0-16.0 [facility] CenterTahmckiFAXCVMHDZO3085-36-51 16:33:00 Test Item Value Reference Range Interpretation Comments Hct (test code = Hct) 40.7 36.0-48.0 [facility] CenterPjjoyofQCUHEHBSDW5827-16-72 16:33:00 Test Item Value Reference Range Interpretation Comments MCV (test code = MCV) 94.0 80.0-98.0 [place] 861682-10-05 16:33:00 Test Item Value Reference Range Interpretation Comments MCH (test code = MCH) 30.3 pg 27.0-31.0 [facility] CenterHvcgzvgXEKMOWQLRC3689-60-09 16:33:00 Test Item Value Reference Range Interpretation Comments MCHC (test code = MCHC) 32.3 32.0-36.0 [facility] CenterGhuojwdOGARWNFEXE7981-33-17 16:33:00 Test Item Value Reference Range Interpretation Comments RDW (test code = RDW) 13.8 11.5-14.5 [place] 861682-10-05 16:33:00 Test Item Value Reference Range Interpretation Comments Platelet (test code = Platelet) 149 133-450 [facility] CenterTplxtigLKOMUPQQRQ5826-35-03 16:33:00 Test Item Value Reference Range Interpretation Comments MPV (test code = MPV) 9.0 7.4-10.4 [facility] CenterTwutgstTNMQQNNJIY0706-97-67 16:33:00 Test Item Value Reference Range Interpretation Comments PT (test code = PT) See Note 3(02/08/22 11:33 12.0-14.7 AM) [place] 861682-10-05 16:33:00 Test Item Value Reference Range Interpretation Comments INR (test code = INR) See Note 2(02/08/22 0.85-1.17 11:33 AM) [place] 861682-10-05 16:33:00 Test Item Value Reference Range Interpretation Comments PTT (test code = PTT) See Note 4(02/08/22 22.9-35.8 11:33 AM) [facility] CenterWvkllydFFNLBJKTHP0884-05-15 16:33:00 Test Item Value Reference Range Interpretation Comments Segs (test code = Segs) 79.2 45.0-75.0 [place] 861682-10-05 16:33:00 Test Item Value Reference Range Interpretation Comments Lymphocytes (test code = Lymphocytes) 11.9 20.0-40.0 [place] 861682-10-05 16:33:00 Test Item Value Reference Range Interpretation Comments Monocytes (test code = Monocytes) 6.9 2.0-12.0 [facility] CenterOkeypqgNESWEHFUPR4423-04-97 16:33:00 Test Item Value Reference Range Interpretation Comments Eosinophils (test code = 1.1 See_Comment [A utomated message] The Eosinophils) system which ge nerated this result tra nsmitted reference range : <=4.0. The reference r fermín was not used to int erpret this result as normal/abnormal . [facility] CenterJanflfyWVDOLAPJGS1465-56-91 16:33:00 Test Item Value Reference Range Interpretation Comments Basophils (test code = 0.9 See_Comment [Aut omated message] The Basophils) system which ge nerated this result tra nsmitted reference range : <=1.0. The reference r fermín was not used to int erpret this result as normal/abnormal . [place] [address]-10-05 16:33:00 Test Item Value Reference Range Interpretation Comments Neutrophils # (test code = Neutrophils 4.7 1.5-8.1 #) [facility] CenterChblmgtOBYUOIEPBA2354-16-30 16:33:00 Test Item Value Reference Range Interpretation Comments Lymphocytes # (test code = Lymphocytes 0.7 1.0-5.5 #) [place] 861682-10-05 16:33:00 Test Item Value Reference Range Interpretation Comments Monocytes # (test code 0.4 See_Comment [Aut omated message] The = Monocytes #) system which generated this result tra nsmitted reference range : <=0.8. The reference r fermín was not used to int erpret this result as normal/abnormal . [facility] CenterKvjsardYBKXQIDWIK3015-01-00 16:33:00 Test Item Value Reference Range Interpretation Comments Eosinophils # (test code 0.1 See_Comment [A utomated message] The = Eosinophils #) system whic h generated this result tra nsmitted reference range : <=0.5. The reference r fermín was not used to int erpret this result as normal/abnormal . [facility] CenterYjrprprXJJPPIMQCT2060-68-78 16:33:00 Test Item Value Reference Range Interpretation Comments Basophils # (test code 0.1 See_Comment [Aut omated message] The = Basophils #) system which generated this result tra nsmitted reference range : <=0.2. The reference r fermín was not used to int erpret this result as normal/abnormal . [facility] [id number] 16:33:00 Test Item Value Reference Range Interpretation Comments HS Troponin I (test code = HS Troponin 11 I) [facility] [id number] 16:33:00 Test Item Value Reference Range Interpretation Comments Glucose Lvl (test code = Glucose Lvl) 117 70-99 [facility] RWBVH1688-09-30 16:33:00 Test Item Value Reference Range Interpretation Comments BUN (test code = BUN) 23 7-22 [facility] [id number] 16:33:00 Test Item Value Reference Range Interpretation Comments Creatinine Lvl (test code = Creatinine 1.00 0.50-1.40 Lvl) [facility] [id number] 16:33:00 Test Item Value Reference Range Interpretation Comments Sodium Lvl (test code = Sodium Lvl) 141 135-145 [facility] [id number] 16:33:00 Test Item Value Reference Range Interpretation Comments Potassium Lvl (test code = Potassium 4.5 3.5-5.1 Lvl) [place] 115182-10-05 16:33:00 Test Item Value Reference Range Interpretation Comments Chloride Lvl (test code = Chloride Lvl) 111 95-109 [facility] [id number] 16:33:00 Test Item Value Reference Range Interpretation Comments CO2 (test code = CO2) 26 24-32 [place] 115182-10-05 16:33:00 Test Item Value Reference Range Interpretation Comments Calcium Lvl (test code = Calcium Lvl) 9.7 8.5-10.5 [facility] [id number] 16:33:00 Test Item Value Reference Range Interpretation Comments AGAP (test code = AGAP) 8.5 10.0-20.0 [facility] [id number] 16:33:00 Test Item Value Reference Range Interpretation Comments eGFR (test code = eGFR) 56 [facility] [id number] 16:33:00 Test Item Value Reference Range Interpretation Comments Total Protein (test code = Total 7.7 6.4-8.4 Protein) [facility] [id number] 16:33:00 Test Item Value Reference Range Interpretation Comments Albumin Lvl (test code = Albumin Lvl) 3.8 3.5-5.0 [facility] [id number] 16:33:00 Test Item Value Reference Range Interpretation Comments ALT (test code = ALT) 26 See_Comment [Auto mated message] The system which ge nerated this result transmit kalie reference range : <=65. The reference range was not used to interpr et this result as phyllis l/abnormal. [facility] [id number] 16:33:00 Test Item Value Reference Range Interpretation Comments AST (test code = AST) 24 See_Comment [Auto mated message] The system which ge nerated this result transmit kalie reference range : <=37. The reference range was not used to interpr et this result as phyllis l/abnormal. [facility] [id number] 16:33:00 Test Item Value Reference Range Interpretation Comments Alk Phos (test code = Alk Phos) 75 39-136 [facility] [id number] 16:33:00 Test Item Value Reference Range Interpretation Comments Bili Total (test code = Bili Total) 0.3 0.2-1.3 [facility] [employer] [id number] 16:33:00 Test Item Value Reference Range Interpretation Comments Bili Direct (test code 0.1 See_Comment [Aut omated message] The = Bili Direct) system which generated this result tra nsmitted reference range : <=0.3. The reference r fermín was not used to int erpret this result as phyllis l/abnormal. [address]10-05 16:33:00 Test Item Value Reference Range Interpretation Comments Bili Indirect (test 0.2 See_Comment [Automa kalie message] The code = Bili Indirect) system which generated this result tra nsmitted reference range : <=1.0. The reference r fermín was not used to int erpret this result as normal/abnormal . [place] [address]182-10-05 16:33:00 Test Item Value Reference Range Interpretation Comments Globulin (test code = Globulin) 3.9 2.7-4.2 [place] [address]182-10-05 16:33:00 Test Item Value Reference Range Interpretation Comments A/G Ratio (test code = A/G Ratio) 1.0 1 0.7-1.6 [address]10-05 16:33:00 Test Item Value Reference Range Interpretation Comments WBC (test code = WBC) 5.9 3.7-10.4 [place] [address]-10-05 16:33:00 Test Item Value Reference Range Interpretation Comments RBC (test code = RBC) 4.33 4.20-5.40 [place] [address]-10-05 16:33:00 Test Item Value Reference Range Interpretation Comments Hgb (test code = Hgb) 13.1 12.0-16.0 [place] [address]-10-05 16:33:00 Test Item Value Reference Range Interpretation Comments Hct (test code = Hct) 40.7 36.0-48.0 [address]10-05 16:33:00 Test Item Value Reference Range Interpretation Comments MCV (test code = MCV) 94.0 80.0-98.0 [place] [address]-10-05 16:33:00 Test Item Value Reference Range Interpretation Comments MCH (test code = MCH) 30.3 pg 27.0-31.0 [place] [address]-10-05 16:33:00 Test Item Value Reference Range Interpretation Comments MCHC (test code = MCHC) 32.3 32.0-36.0 [facility]DNELFWST6166[facility]86-[facility] 16:33:00 Test Item Value Reference Range Interpretation Comments RDW (test code = RDW) 13.8 11.5-14.5 [place] 861682-10-05 16:33:00 Test Item Value Reference Range Interpretation Comments Platelet (test code = Platelet) 149 133-450 [facility]UjtfdziCNUMPKNDUG1371-00-76 16:33:00 Test Item Value Reference Range Interpretation Comments MPV (test code = MPV) 9.0 7.4-10.4 [place] [address]-10-05 16:33:00 Test Item Value Reference Range Interpretation Comments PT (test code = PT) See Note 3(02/08/22 11:33 12.0-14.7 AM) [place] [address]-10-05 16:33:00 Test Item Value Reference Range Interpretation Comments INR (test code = INR) See Note 2(02/08/22 0.85-1.17 11:33 AM) [place] [address]-10-05 16:33:00 Test Item Value Reference Range Interpretation Comments PTT (test code = PTT) See Note 4(02/08/22 22.9-35.8 11:33 AM) [place] [address]-10-05 16:33:00 Test Item Value Reference Range Interpretation Comments Segs (test code = Segs) 79.2 45.0-75.0 [place] [address]-10-05 16:33:00 Test Item Value Reference Range Interpretation Comments Lymphocytes (test code = Lymphocytes) 11.9 20.0-40.0 [place] [address]-10-05 16:33:00 Test Item Value Reference Range Interpretation Comments Monocytes (test code = Monocytes) 6.9 2.0-12.0 [place] [address]-10-05 16:33:00 Test Item Value Reference Range Interpretation Comments Eosinophils (test code = 1.1 See_Comment [A utomated message] The Eosinophils) system which ge nerated this result tra nsmitted reference range : <=4.0. The reference r fermín was not used to int erpret this result as normal/abnormal . [facility]MgmbjgqMMBWMVSVXA5092-36-93 16:33:00 Test Item Value Reference Range Interpretation Comments Basophils (test code = 0.9 See_Comment [Aut omated message] The Basophils) system which ge nerated this result tra nsmitted reference range : <=1.0. The reference r fermín was not used to int erpret this result as normal/abnormal . [facility] CenterHeuqrkcZUEGVFPLSW8425-53-28 16:33:00 Test Item Value Reference Range Interpretation Comments Neutrophils # (test code = Neutrophils 4.7 1.5-8.1 #) [facility] CenterGdihzisQIWDNAYRCP7917-14-41 16:33:00 Test Item Value Reference Range Interpretation Comments Lymphocytes # (test code = Lymphocytes 0.7 1.0-5.5 #) [facility] CenterEwjbcyiJKFCTYTZPJ8889-81-51 16:33:00 Test Item Value Reference Range Interpretation Comments Monocytes # (test code 0.4 See_Comment [Aut omated message] The = Monocytes #) system which generated this result tra nsmitted reference range : <=0.8. The reference r fermín was not used to int erpret this result as normal/abnormal . [facility] CenterBupuxzaXEUYIOKLXV5297-94-39 16:33:00 Test Item Value Reference Range Interpretation Comments Eosinophils # (test code 0.1 See_Comment [A utomated message] The = Eosinophils #) system whic h generated this result tra nsmitted reference range : <=0.5. The reference r fermín was not used to int erpret this result as normal/abnormal . [facility] CenterZdtsqvpNESDJEHDDR3871-58-04 16:33:00 Test Item Value Reference Range Interpretation Comments Basophils # (test code 0.1 See_Comment [Aut omated message] The = Basophils #) system which generated this result tra nsmitted reference range : <=0.2. The reference r fermín was not used to int erpret this result as normal/abnormal . [facility] IVEFPRI5416-60-97 16:33:00 Test Item Value Reference Range Interpretation Comments HS Troponin I (test code = HS Troponin 11 I) [facility] SoutheastSoftoCoupon PCGYZ8513-04-04 16:33:00 Test Item Value Reference Range Interpretation Comments Glucose Lvl (test code = Glucose Lvl) 117 70-99 [facility] [id number] 16:33:00 Test Item Value Reference Range Interpretation Comments BUN (test code = BUN) 23 7-22 [facility]2022-10-05 16:33:00 Test Item Value Reference Range Interpretation Comments Creatinine Lvl (test code = Creatinine 1.00 0.50-1.40 Lvl) [facility]2022-10-05 16:33:00 Test Item Value Reference Range Interpretation Comments Sodium Lvl (test code = Sodium Lvl) 141 135-145 [facility]2022-10-05 16:33:00 Test Item Value Reference Range Interpretation Comments Potassium Lvl (test code = Potassium 4.5 3.5-5.1 Lvl) [facility]2022-10-05 16:33:00 Test Item Value Reference Range Interpretation Comments Chloride Lvl (test code = Chloride Lvl) 111 95-109 [facility]2022-10-05 16:33:00 Test Item Value Reference Range Interpretation Comments CO2 (test code = CO2) 26 24-32 [facility]2022-10-05 16:33:00 Test Item Value Reference Range Interpretation Comments Calcium Lvl (test code = Calcium Lvl) 9.7 8.5-10.5 [facility]2022-10-05 16:33:00 Test Item Value Reference Range Interpretation Comments AGAP (test code = AGAP) 8.5 10.0-20.0 [facility]2022-10-05 16:33:00 Test Item Value Reference Range Interpretation Comments eGFR (test code = eGFR) 56 [facility]2022-10-05 16:33:00 Test Item Value Reference Range Interpretation Comments Total Protein (test code = Total 7.7 6.4-8.4 Protein) [place] [address]182-10-05 16:33:00 Test Item Value Reference Range Interpretation Comments Albumin Lvl (test code = Albumin Lvl) 3.8 3.5-5.0 [facility]2022-10-05 16:33:00 Test Item Value Reference Range Interpretation Comments ALT (test code = ALT) 26 See_Comment [Auto mated message] The system which ge nerated this result transmit kalie reference range : <=65. The reference range was not used to interpr et this result as phyllis l/abnormal. [address]10-05 16:33:00 Test Item Value Reference Range Interpretation Comments AST (test code = AST) 24 See_Comment [Auto mated message] The system which ge nerated this result transmit kalie reference range : <=37. The reference range was not used to interpr et this result as phyllis l/abnormal. [place] [address]-10-05 16:33:00 Test Item Value Reference Range Interpretation Comments Alk Phos (test code = Alk Phos) 75 39-136 [place] [address]-10-05 16:33:00 Test Item Value Reference Range Interpretation Comments Bili Total (test code = Bili Total) 0.3 0.2-1.[address]10-05 16:33:00 Test Item Value Reference Range Interpretation Comments Bili Direct (test code 0.1 See_Comment [Aut omated message] The = Bili Direct) system which generated this result tra nsmitted reference range : <=0.3. The reference r fermín was not used to int erpret this result as phyllis l/abnormal. [place] [address]-10-05 16:33:00 Test Item Value Reference Range Interpretation Comments Bili Indirect (test 0.2 See_Comment [Automa kalie message] The code = Bili Indirect) system which generated this result tra nsmitted reference range : <=1.0. The reference r fermín was not used to int erpret this result as normal/abnormal . [place] [address]-10-05 16:33:00 Test Item Value Reference Range Interpretation Comments Globulin (test code = Globulin) 3.9 2.7-4.[address]10-05 16:33:00 Test Item Value Reference Range Interpretation Comments A/G Ratio (test code = A/G Ratio) 1.0 1 0.7-1.6 [place] [address]-10-05 16:33:00 Test Item Value Reference Range Interpretation Comments WBC (test code = WBC) 5.9 3.7-10.4 [place] [address]-10-05 16:33:00 Test Item Value Reference Range Interpretation Comments RBC (test code = RBC) 4.33 4.20-5.40 [place] [address]-10-05 16:33:00 Test Item Value Reference Range Interpretation Comments Hgb (test code = Hgb) 13.1 12.0-16.0 [facility] CenterJbdqmcsYCGGHWWYPB7034-33-76 16:33:00 Test Item Value Reference Range Interpretation Comments Hct (test code = Hct) 40.7 36.0-48.0 [facility] CenterFkenbcsGKBIZMHITZ1499-02-34 16:33:00 Test Item Value Reference Range Interpretation Comments MCV (test code = MCV) 94.0 80.0-98.0 [facility] CenterExzvkgqYCATIRRCGA4701-60-74 16:33:00 Test Item Value Reference Range Interpretation Comments MCH (test code = MCH) 30.3 pg 27.0-31.0 [facility] CenterParhyyrTCQJQQRBSK9828-44-06 16:33:00 Test Item Value Reference Range Interpretation Comments MCHC (test code = MCHC) 32.3 32.0-36.0 [facility] CenterVrmngegBFUEFRMMTL2267-38-03 16:33:00 Test Item Value Reference Range Interpretation Comments RDW (test code = RDW) 13.8 11.5-14.5 [facility] CenterOccickkBBRSAKFBYU0482-21-40 16:33:00 Test Item Value Reference Range Interpretation Comments Platelet (test code = Platelet) 149 133-450 [facility] CenterIlryadbSZAGTCEBWF3891-10-47 16:33:00 Test Item Value Reference Range Interpretation Comments MPV (test code = MPV) 9.0 7.4-10.4 [facility] CenterUnvbsgjYAZIPTCHDW6847-94-26 16:33:00 Test Item Value Reference Range Interpretation Comments PT (test code = PT) See Note 3(02/08/22 11:33 12.0-14.7 AM) [facility] CenterIsimuluSJTIRHWQDE6308-47-69 16:33:00 Test Item Value Reference Range Interpretation Comments INR (test code = INR) See Note 2(02/08/22 0.85-1.17 11:33 AM) [place] [address]-10-05 16:33:00 Test Item Value Reference Range Interpretation Comments PTT (test code = PTT) See Note 4(02/08/22 22.9-35.8 11:33 AM) [facility] CenterArypaoxDSKLQPTMCC9097-93-08 16:33:00 Test Item Value Reference Range Interpretation Comments Segs (test code = Segs) 79.2 45.0-75.0 [place] [address]-10-05 16:33:00 Test Item Value Reference Range Interpretation Comments Lymphocytes (test code = Lymphocytes) 11.9 20.0-40.0 [place] 861682-10-05 16:33:00 Test Item Value Reference Range Interpretation Comments Monocytes (test code = Monocytes) 6.9 2.0-12.0 [place] [address]-10-05 16:33:00 Test Item Value Reference Range Interpretation Comments Eosinophils (test code = 1.1 See_Comment [A utomated message] The Eosinophils) system which ge nerated this result tra nsmitted reference range : <=4.0. The reference r fermín was not used to int erpret this result as normal/abnormal . [place] [address]-10-05 16:33:00 Test Item Value Reference Range Interpretation Comments Basophils (test code = 0.9 See_Comment [Aut omated message] The Basophils) system which ge nerated this result tra nsmitted reference range : <=1.0. The reference r fremín was not used to int erpret this result as normal/abnormal . [facility] CenterDzazgvxIEYPGAWKHU3037-94-99 16:33:00 Test Item Value Reference Range Interpretation Comments Neutrophils # (test code = Neutrophils 4.7 1.5-8.1 #) [place] [address]-10-05 16:33:00 Test Item Value Reference Range Interpretation Comments Lymphocytes # (test code = Lymphocytes 0.7 1.0-5.5 #) [place] [address]-10-05 16:33:00 Test Item Value Reference Range Interpretation Comments Monocytes # (test code 0.4 See_Comment [Aut omated message] The = Monocytes #) system which generated this result tra nsmitted reference range : <=0.8. The reference r fermín was not used to int erpret this result as normal/abnormal . [place] [address]-10-05 16:33:00 Test Item Value Reference Range Interpretation Comments Eosinophils # (test code 0.1 See_Comment [A utomated message] The = Eosinophils #) system whic h generated this result tra nsmitted reference range : <=0.5. The reference r fermín was not used to int erpret this result as normal/abnormal . [facility] SoutheastWplupwxFESVNGXOJZ3873-95-85 16:33:00 Test Item Value Reference Range Interpretation Comments Basophils # (test code 0.1 See_Comment [Aut omated message] The = Basophils #) system which generated this result tra nsmitted reference range : <=0.2. The reference r fermín was not used to int erpret this result as normal/abnormal . [facility]CARDIAC BBLOJIS6067-61-43 16:33:00 Test Item Value Reference Range Interpretation Comments HS Troponin I (test code = HS Troponin 11 I) [facility]2022-10-05 16:33:00 Test Item Value Reference Range Interpretation Comments Glucose Lvl (test code = Glucose Lvl) 117 70-99 [place] [address]182-10-05 16:33:00 Test Item Value Reference Range Interpretation Comments BUN (test code = BUN) 23 7-22 [place] [address]182-10-05 16:33:00 Test Item Value Reference Range Interpretation Comments Creatinine Lvl (test code = Creatinine 1.00 0.50-1.40 Lvl) [facility]2022-10-05 16:33:00 Test Item Value Reference Range Interpretation Comments Sodium Lvl (test code = Sodium Lvl) 141 135-145 [facility]2022-10-05 16:33:00 Test Item Value Reference Range Interpretation Comments Potassium Lvl (test code = Potassium 4.5 3.5-5.1 Lvl) [facility]2022-10-05 16:33:00 Test Item Value Reference Range Interpretation Comments Chloride Lvl (test code = Chloride Lvl) 111 95-109 [place] [address]182-10-05 16:33:00 Test Item Value Reference Range Interpretation Comments CO2 (test code = CO2) 26 24-32 [facility]2022-10-05 16:33:00 Test Item Value Reference Range Interpretation Comments Calcium Lvl (test code = Calcium Lvl) 9.7 8.5-10.5 [facility]2022-10-05 16:33:00 Test Item Value Reference Range Interpretation Comments AGAP (test code = AGAP) 8.5 10.0-20.0 [place] [address]-10-05 16:33:00 Test Item Value Reference Range Interpretation Comments eGFR (test code = eGFR) 56 [place] [address]-10-05 16:33:00 Test Item Value Reference Range Interpretation Comments Total Protein (test code = Total 7.7 6.4-8.4 Protein) [place] [address]-10-05 16:33:00 Test Item Value Reference Range Interpretation Comments Albumin Lvl (test code = Albumin Lvl) 3.8 3.5-5.0 [place] [address]-10-05 16:33:00 Test Item Value Reference Range Interpretation Comments ALT (test code = ALT) 26 <=65 [place] [address]-10-05 16:33:00 Test Item Value Reference Range Interpretation Comments AST (test code = AST) 24 <=37 [address]10-05 16:33:00 Test Item Value Reference Range Interpretation Comments Alk Phos (test code = Alk Phos) 75 39-136 [place] [address]182-10-05 16:33:00 Test Item Value Reference Range Interpretation Comments Bili Total (test code = Bili Total) 0.3 0.2-1.3 [address]10-05 16:33:00 Test Item Value Reference Range Interpretation Comments Bili Direct (test code = Bili Direct) 0.1 <=0.3 [address]10-05 16:33:00 Test Item Value Reference Range Interpretation Comments Bili Indirect (test code = Bili 0.2 <=1.0 Indirect) [address]10-05 16:33:00 Test Item Value Reference Range Interpretation Comments Globulin (test code = Globulin) 3.9 2.7-4.2 [place] [address]-10-05 16:33:00 Test Item Value Reference Range Interpretation Comments A/G Ratio (test code = A/G Ratio) 1.0 1 0.7-1.6 [address]10-05 16:33:00 Test Item Value Reference Range Interpretation Comments WBC (test code = WBC) 5.9 3.7-10.4 [place] [address]-10-05 16:33:00 Test Item Value Reference Range Interpretation Comments RBC (test code = RBC) 4.33 4.20-5.40 [address]10-05 16:33:00 Test Item Value Reference Range Interpretation Comments Hgb (test code = Hgb) 13.1 12.0-16.0 [facility] CenterZwnagjkODLENKEVAC1480-89-03 16:33:00 Test Item Value Reference Range Interpretation Comments Hct (test code = Hct) 40.7 36.0-48.0 [facility] CenterIgnzfarAWYHCXAXIH3685-33-74 16:33:00 Test Item Value Reference Range Interpretation Comments MCV (test code = MCV) 94.0 80.0-98.0 [facility] CenterNbtdqffTSXEQMLJSB4181-38-79 16:33:00 Test Item Value Reference Range Interpretation Comments MCH (test code = MCH) 30.3 pg 27.0-31.0 [facility] CenterRalwfgfMYSGLFNUXI6850-51-59 16:33:00 Test Item Value Reference Range Interpretation Comments MCHC (test code = MCHC) 32.3 32.0-36.0 [facility] CenterCfaehwvJZLARNBUCE5227-44-05 16:33:00 Test Item Value Reference Range Interpretation Comments RDW (test code = RDW) 13.8 11.5-14.5 [facility] CenterOmwmphaFFDFHJQBQP0829-51-80 16:33:00 Test Item Value Reference Range Interpretation Comments Platelet (test code = Platelet) 149 133-450 [facility] CenterUpcmeyoDKWJITGWYZ1698-66-68 16:33:00 Test Item Value Reference Range Interpretation Comments MPV (test code = MPV) 9.0 7.4-10.4 [facility] CenterEuuehkePWESWWWDWR8253-81-11 16:33:00 Test Item Value Reference Range Interpretation Comments PT (test code = PT) See Note 3(02/08/22 11:33 12.0-14.7 AM) [facility] CenterBqeuoduKDKUTYPFKQ3735-31-05 16:33:00 Test Item Value Reference Range Interpretation Comments INR (test code = INR) See Note 2(02/08/22 0.85-1.17 11:33 AM) [place] [address]-10-05 16:33:00 Test Item Value Reference Range Interpretation Comments PTT (test code = PTT) See Note 4(02/08/22 22.9-35.8 11:33 AM) [place] 861682-10-05 16:33:00 Test Item Value Reference Range Interpretation Comments Segs (test code = Segs) 79.2 45.0-75.0 [place] [address]-10-05 16:33:00 Test Item Value Reference Range Interpretation Comments Lymphocytes (test code = Lymphocytes) 11.9 20.0-40.0 [place] [address]-10-05 16:33:00 Test Item Value Reference Range Interpretation Comments Monocytes (test code = Monocytes) 6.9 2.0-12.0 [place] [address]-10-05 16:33:00 Test Item Value Reference Range Interpretation Comments Eosinophils (test code = Eosinophils) 1.1 <=4.0 [place] [address]-10-05 16:33:00 Test Item Value Reference Range Interpretation Comments Basophils (test code = Basophils) 0.9 <=1.0 [place] [address]-10-05 16:33:00 Test Item Value Reference Range Interpretation Comments Neutrophils # (test code = Neutrophils 4.7 1.5-8.1 #) [place] [address]-10-05 16:33:00 Test Item Value Reference Range Interpretation Comments Lymphocytes # (test code = Lymphocytes 0.7 1.0-5.5 #) [place] [address]-10-05 16:33:00 Test Item Value Reference Range Interpretation Comments Monocytes # (test code = Monocytes #) 0.4 <=0.8 [place] [address]-10-05 16:33:00 Test Item Value Reference Range Interpretation Comments Eosinophils # (test code = Eosinophils 0.1 <=0.5 #) [address]10-05 16:33:00 Test Item Value Reference Range Interpretation Comments Basophils # (test code = Basophils #) 0.1 <=0.2 [facility]2022-01-02 11:56:00 Test Item Value Reference Range Interpretation Comments Glucose Lvl (test code = Glucose Lvl) 94 70-99 [facility]2022-01-02 11:56:00 Test Item Value Reference Range Interpretation Comments BUN (test code = BUN) 12 - [place] [address]182-01-02 11:56:00 Test Item Value Reference Range Interpretation Comments Creatinine Lvl (test code = Creatinine 0.85 0.50-1.40 Lvl) [facility]2022-01-02 11:56:00 Test Item Value Reference Range Interpretation Comments Sodium Lvl (test code = Sodium Lvl) 146 135-145 [place] 115182-01-02 11:56:00 Test Item Value Reference Range Interpretation Comments Potassium Lvl (test code = Potassium 4.7 3.5-5.1 Lvl) [place] [address]182-01-02 11:56:00 Test Item Value Reference Range Interpretation Comments Chloride Lvl (test code = Chloride Lvl) 113 95-109 [place] 115182-01-02 11:56:00 Test Item Value Reference Range Interpretation Comments CO2 (test code = CO2) 28 24-32 [place] 115182-01-02 11:56:00 Test Item Value Reference Range Interpretation Comments Calcium Lvl (test code = Calcium Lvl) 9.0 8.5-10.5 [place] [address]182-01-02 11:56:00 Test Item Value Reference Range Interpretation Comments AGAP (test code = AGAP) 9.7 10.0-20.0 [place] [address]182-01-02 11:56:00 Test Item Value Reference Range Interpretation Comments eGFR (test code = eGFR) 64 [place] 861682-01-02 11:56:00 Test Item Value Reference Range Interpretation Comments Segs (test code = Segs) 66.1 45.0-75.0 [place] 861682-01-02 11:56:00 Test Item Value Reference Range Interpretation Comments Lymphocytes (test code = Lymphocytes) 19.5 20.0-40.0 [place] 861682-01-02 11:56:00 Test Item Value Reference Range Interpretation Comments Monocytes (test code = Monocytes) 10.6 2.0-12.0 [place] [address]-01-02 11:56:00 Test Item Value Reference Range Interpretation Comments Eosinophils (test code = 2.9 See_Comment [A utomated message] The Eosinophils) system which ge nerated this result tra nsmitted reference range : <=4.0. The reference r fermín was not used to int erpret this result as normal/abnormal . [place] 861682-01-02 11:56:00 Test Item Value Reference Range Interpretation Comments Basophils (test code = 0.9 See_Comment [Aut omated message] The Basophils) system which ge nerated this result tra nsmitted reference range : <=1.0. The reference r fermín was not used to int erpret this result as normal/abnormal . [place] 861682-01-02 11:56:00 Test Item Value Reference Range Interpretation Comments Neutrophils # (test code = Neutrophils 3.4 1.5-8.1 #) [facility]VopcpsmWUUEYQKYEG5419-33-17 11:56:00 Test Item Value Reference Range Interpretation Comments Lymphocytes # (test code = Lymphocytes 1.0 1.0-5.5 #) [place] 861682-01-02 11:56:00 Test Item Value Reference Range Interpretation Comments Monocytes # (test code 0.5 See_Comment [Aut omated message] The = Monocytes #) system which generated this result tra nsmitted reference range : <=0.8. The reference r fermín was not used to int erpret this result as normal/abnormal . [place] 861682-01-02 11:56:00 Test Item Value Reference Range Interpretation Comments Eosinophils # (test code 0.2 See_Comment [A utomated message] The = Eosinophils #) system whic h generated this result tra nsmitted reference range : <=0.5. The reference r fermín was not used to int erpret this result as normal/abnormal . [facility] CenterKwthoxbMFBGMVNVOM0602-73-53 11:56:00 Test Item Value Reference Range Interpretation Comments WBC (test code = WBC) 5.2 3.7-10.4 [place] 861682-01-02 11:56:00 Test Item Value Reference Range Interpretation Comments RBC (test code = RBC) 3.45 4.20-5.40 [place] 861682-01-02 11:56:00 Test Item Value Reference Range Interpretation Comments Hgb (test code = Hgb) 10.8 12.0-16.0 [place] 861682-01-02 11:56:00 Test Item Value Reference Range Interpretation Comments Hct (test code = Hct) 32.2 36.0-48.0 [place] 861682-01-02 11:56:00 Test Item Value Reference Range Interpretation Comments MCV (test code = MCV) 93.4 80.0-98.0 [place] 861682-01-02 11:56:00 Test Item Value Reference Range Interpretation Comments MCH (test code = MCH) 31.3 pg 27.0-31.0 [facility]25[facility]29 11:56:00 Test Item Value Reference Range Interpretation Comments MCHC (test code = MCHC) 33.5 32.0-36.0 [facility]HfdqsgbGLLZIRJGEX5703-36-08 11:56:00 Test Item Value Reference Range Interpretation Comments RDW (test code = RDW) 14.4 11.5-14.5 [facility]IvruzatEBEPWCEFSC4290-66-84 11:56:00 Test Item Value Reference Range Interpretation Comments Platelet (test code = Platelet) 141 133-450 [facility]jek[facility]fnXMRAOHNMEU8541-13-32 11:56:00 Test Item Value Reference Range Interpretation Comments MPV (test code = MPV) 8.8 7.4-10.4 [facility]HfrlzxtJGMOQP6291-71-88 11:56:00 Test Item Value Reference Range Interpretation Comments Trig (test code = Trig) 58 [facility] SoutheastBkydtvsLWZOPH1778-20-19 11:56:00 Test Item Value Reference Range Interpretation Comments Chol (test code = Chol) 154 [facility] SoutheastIidyvisIEVMEA8463-54-30 11:56:00 Test Item Value Reference Range Interpretation Comments HDL (test code = HDL) 63 [facility] SoutheastLdjfuxiIAMAZM7932-97-50 11:56:00 Test Item Value Reference Range Interpretation Comments CHD Risk (test code = CHD Risk) 2.44 1 3.90-5.80 [facility] SoutheastPkzzkquZDDBPA6906-97-53 11:56:00 Test Item Value Reference Range Interpretation Comments LDL (Calculated) (test code = LDL 79 (Calculated)) [facility] SoutheastAybsbjbPDTDTW2481-47-44 11:56:00 Test Item Value Reference Range Interpretation Comments VLDL (test code = VLDL) 12 1 [facility] FFIYZMKRS3368-16-57 11:56:00 Test Item Value Reference Range Interpretation Comments Hgb A1C (test code = Hgb A1C) 5.9 [facility] SoutheastSoftoCoupon SZXPC4460-97-34 11:56:00 Test Item Value Reference Range Interpretation Comments Glucose Lvl (test code = Glucose Lvl) 94 70-99 [facility] BDHEX0524-27-97 11:56:00 Test Item Value Reference Range Interpretation Comments BUN (test code = BUN) 12 7-22 [place] 115182-01-02 11:56:00 Test Item Value Reference Range Interpretation Comments Creatinine Lvl (test code = Creatinine 0.85 0.50-1.40 Lvl) [place] 115182-01-02 11:56:00 Test Item Value Reference Range Interpretation Comments Sodium Lvl (test code = Sodium Lvl) 146 135-145 [place] 115182-01-02 11:56:00 Test Item Value Reference Range Interpretation Comments Potassium Lvl (test code = Potassium 4.7 3.5-5.1 Lvl) [place] 115182-01-02 11:56:00 Test Item Value Reference Range Interpretation Comments Chloride Lvl (test code = Chloride Lvl) 113 95-109 [place] 115182-01-02 11:56:00 Test Item Value Reference Range Interpretation Comments CO2 (test code = CO2) 28 24-32 [place] 115182-01-02 11:56:00 Test Item Value Reference Range Interpretation Comments Calcium Lvl (test code = Calcium Lvl) 9.0 8.5-10.5 [place] 115182-01-02 11:56:00 Test Item Value Reference Range Interpretation Comments AGAP (test code = AGAP) 9.7 10.0-20.0 [place] 115182-01-02 11:56:00 Test Item Value Reference Range Interpretation Comments eGFR (test code = eGFR) 64 [place] 861682-01-02 11:56:00 Test Item Value Reference Range Interpretation Comments Segs (test code = Segs) 66.1 45.0-75.0 [place] 861682-01-02 11:56:00 Test Item Value Reference Range Interpretation Comments Lymphocytes (test code = Lymphocytes) 19.5 20.0-40.0 [place] [address]-01-02 11:56:00 Test Item Value Reference Range Interpretation Comments Monocytes (test code = Monocytes) 10.6 2.0-12.0 [place] [address]-01-02 11:56:00 Test Item Value Reference Range Interpretation Comments Eosinophils (test code = 2.9 See_Comment [A utomated message] The Eosinophils) system which ge nerated this result tra nsmitted reference range : <=4.0. The reference r fermín was not used to int erpret this result as normal/abnormal . [facility]SlcsgcpQHWMDYQFWH1574-22-01 11:56:00 Test Item Value Reference Range Interpretation Comments Basophils (test code = 0.9 See_Comment [Aut omated message] The Basophils) system which ge nerated this result tra nsmitted reference range : <=1.0. The reference r fermín was not used to int erpret this result as normal/abnormal . [place] 861682-01-02 11:56:00 Test Item Value Reference Range Interpretation Comments Neutrophils # (test code = Neutrophils 3.4 1.5-8.1 #) [place] 861682-01-02 11:56:00 Test Item Value Reference Range Interpretation Comments Lymphocytes # (test code = Lymphocytes 1.0 1.0-5.5 #) [place] 861682-01-02 11:56:00 Test Item Value Reference Range Interpretation Comments Monocytes # (test code 0.5 See_Comment [Aut omated message] The = Monocytes #) system which generated this result tra nsmitted reference range : <=0.8. The reference r fermín was not used to int erpret this result as normal/abnormal . [facility] CenterMcgdgrgFGIGOKMLSD1115-78-25 11:56:00 Test Item Value Reference Range Interpretation Comments Eosinophils # (test code 0.2 See_Comment [A utomated message] The = Eosinophils #) system whic h generated this result tra nsmitted reference range : <=0.5. The reference r fermín was not used to int erpret this result as normal/abnormal . [facility] CenterUzoaktpNPYLONHEYC1350-98-34 11:56:00 Test Item Value Reference Range Interpretation Comments WBC (test code = WBC) 5.2 3.7-10.4 [place] 861682-01-02 11:56:00 Test Item Value Reference Range Interpretation Comments RBC (test code = RBC) 3.45 4.20-5.40 [place] 861682-01-02 11:56:00 Test Item Value Reference Range Interpretation Comments Hgb (test code = Hgb) 10.8 12.0-16.0 [place] 861682-01-02 11:56:00 Test Item Value Reference Range Interpretation Comments Hct (test code = Hct) 32.2 36.0-48.0 [facility]SltrhgcAAAZFHSNQW8850-04-76 11:56:00 Test Item Value Reference Range Interpretation Comments MCV (test code = MCV) 93.4 80.0-98.0 [facility]intHrjmkkoUMNXNZVMFB3813-74-88 11:56:00 Test Item Value Reference Range Interpretation Comments MCH (test code = MCH) 31.3 pg 27.0-31.0 [facility]intOhvhljoINLUOYKCPS3232-44-69 11:56:00 Test Item Value Reference Range Interpretation Comments MCHC (test code = MCHC) 33.5 32.0-36.0 [facility]intGrvbzujBWEZZDIZKV9307-71-19 11:56:00 Test Item Value Reference Range Interpretation Comments RDW (test code = RDW) 14.4 11.5-14.5 [facility]intMagknwpACTFKCXEHT5571-47-43 11:56:00 Test Item Value Reference Range Interpretation Comments Platelet (test code = Platelet) 141 133-450 [facility]intUlpalpzACPDFGRKQD9191-44-13 11:56:00 Test Item Value Reference Range Interpretation Comments MPV (test code = MPV) 8.8 7.4-10.4 [facility] SoutheastZwswcshMTAOOG7204-28-14 11:56:00 Test Item Value Reference Range Interpretation Comments Trig (test code = Trig) 58 [facility] SoutheastTtgaqmgCVCWXP6802-52-66 11:56:00 Test Item Value Reference Range Interpretation Comments Chol (test code = Chol) 154 [facility] SoutheastUwvhpszDMVUDO5375-53-64 11:56:00 Test Item Value Reference Range Interpretation Comments HDL (test code = HDL) 63 [facility] SoutheastLvzjnhrXDBBGK9988-91-25 11:56:00 Test Item Value Reference Range Interpretation Comments CHD Risk (test code = CHD Risk) 2.44 1 3.90-5.80 [facility] SoutheastZkbedksMHPIWB8363-28-26 11:56:00 Test Item Value Reference Range Interpretation Comments LDL (Calculated) (test code = LDL 79 (Calculated)) [facility] SoutheastWijgoyyQIGDRM3605-43-01 11:56:00 Test Item Value Reference Range Interpretation Comments VLDL (test code = VLDL) 12 1 [facility] RABCWRUTT7921-87-95 11:56:00 Test Item Value Reference Range Interpretation Comments Hgb A1C (test code = Hgb A1C) 5.9 [place] 115182-01-02 11:56:00 Test Item Value Reference Range Interpretation Comments Glucose Lvl (test code = Glucose Lvl) 94 70-99 [place] 115182-01-02 11:56:00 Test Item Value Reference Range Interpretation Comments BUN (test code = BUN) 12 7-22 [place] 115182-01-02 11:56:00 Test Item Value Reference Range Interpretation Comments Creatinine Lvl (test code = Creatinine 0.85 0.50-1.40 Lvl) [place] 115182-01-02 11:56:00 Test Item Value Reference Range Interpretation Comments Sodium Lvl (test code = Sodium Lvl) 146 135-145 [place] 115182-01-02 11:56:00 Test Item Value Reference Range Interpretation Comments Potassium Lvl (test code = Potassium 4.7 3.5-5.1 Lvl) [place] 115182-01-02 11:56:00 Test Item Value Reference Range Interpretation Comments Chloride Lvl (test code = Chloride Lvl) 113 95-109 [place] 115182-01-02 11:56:00 Test Item Value Reference Range Interpretation Comments CO2 (test code = CO2) 28 24-32 [place] 115182-01-02 11:56:00 Test Item Value Reference Range Interpretation Comments Calcium Lvl (test code = Calcium Lvl) 9.0 8.5-10.5 [place] 115182-01-02 11:56:00 Test Item Value Reference Range Interpretation Comments AGAP (test code = AGAP) 9.7 10.0-20.0 [place] 115182-01-02 11:56:00 Test Item Value Reference Range Interpretation Comments eGFR (test code = eGFR) 64 [place] 861682-01-02 11:56:00 Test Item Value Reference Range Interpretation Comments Segs (test code = Segs) 66.1 45.0-75.0 [place] 861682-01-02 11:56:00 Test Item Value Reference Range Interpretation Comments Lymphocytes (test code = Lymphocytes) 19.5 20.0-40.0 [place] 861682-01-02 11:56:00 Test Item Value Reference Range Interpretation Comments Monocytes (test code = Monocytes) 10.6 2.0-12.0 [place] 861682-01-02 11:56:00 Test Item Value Reference Range Interpretation Comments Eosinophils (test code = 2.9 See_Comment [A utomated message] The Eosinophils) system which ge nerated this result tra nsmitted reference range : <=4.0. The reference r fermín was not used to int erpret this result as normal/abnormal . [place] 861682-01-02 11:56:00 Test Item Value Reference Range Interpretation Comments Basophils (test code = 0.9 See_Comment [Aut omated message] The Basophils) system which ge nerated this result tra nsmitted reference range : <=1.0. The reference r fermín was not used to int erpret this result as normal/abnormal . [place] 861682-01-02 11:56:00 Test Item Value Reference Range Interpretation Comments Neutrophils # (test code = Neutrophils 3.4 1.5-8.1 #) [place] 861682-01-02 11:56:00 Test Item Value Reference Range Interpretation Comments Lymphocytes # (test code = Lymphocytes 1.0 1.0-5.5 #) [place] 861682-01-02 11:56:00 Test Item Value Reference Range Interpretation Comments Monocytes # (test code 0.5 See_Comment [Aut omated message] The = Monocytes #) system which generated this result tra nsmitted reference range : <=0.8. The reference r fermín was not used to int erpret this result as normal/abnormal . [place] 861682-01-02 11:56:00 Test Item Value Reference Range Interpretation Comments Eosinophils # (test code 0.2 See_Comment [A utomated message] The = Eosinophils #) system whic h generated this result tra nsmitted reference range : <=0.5. The reference r fermín was not used to int erpret this result as normal/abnormal . [place] 861682-01-02 11:56:00 Test Item Value Reference Range Interpretation Comments WBC (test code = WBC) 5.2 3.7-10.4 [place] 861682-01-02 11:56:00 Test Item Value Reference Range Interpretation Comments RBC (test code = RBC) 3.45 4.20-5.40 [facility]JobyjwhMRYMZEXLJT5307-00-77 11:56:00 Test Item Value Reference Range Interpretation Comments Hgb (test code = Hgb) 10.8 12.0-16.0 [place] 861682-01-02 11:56:00 Test Item Value Reference Range Interpretation Comments Hct (test code = Hct) 32.2 36.0-48.0 [facility] CenterGoptuhtHWSKYBCWSN7202-72-35 11:56:00 Test Item Value Reference Range Interpretation Comments MCV (test code = MCV) 93.4 80.0-98.0 [place] 861682-01-02 11:56:00 Test Item Value Reference Range Interpretation Comments MCH (test code = MCH) 31.3 pg 27.0-31.0 [place] 861682-01-02 11:56:00 Test Item Value Reference Range Interpretation Comments MCHC (test code = MCHC) 33.5 32.0-36.0 [facility] CenterWpfdqyyKMGPIBLUHZ8788-63-99 11:56:00 Test Item Value Reference Range Interpretation Comments RDW (test code = RDW) 14.4 11.5-14.5 [facility] CenterGtgxwyyBKDGJEUKWS0579-12-40 11:56:00 Test Item Value Reference Range Interpretation Comments Platelet (test code = Platelet) 141 133-450 [facility] CenterTprxyniJVUNLHJQZA0634-30-68 11:56:00 Test Item Value Reference Range Interpretation Comments MPV (test code = MPV) 8.8 7.4-10.4 [place] 831262-01-02 11:56:00 Test Item Value Reference Range Interpretation Comments Trig (test code = Trig) 58 [facility]ScltdpgCIVWTQ7941-23-10 11:56:00 Test Item Value Reference Range Interpretation Comments Chol (test code = Chol) 154 [facility] SoutheastKwnyjocQAYNZT5934-02-93 11:56:00 Test Item Value Reference Range Interpretation Comments HDL (test code = HDL) 63 [facility] SoutheastJymrgipVQPYNY3629-76-63 11:56:00 Test Item Value Reference Range Interpretation Comments CHD Risk (test code = CHD Risk) 2.44 1 3.90-5.80 [place] 831262-01-02 11:56:00 Test Item Value Reference Range Interpretation Comments LDL (Calculated) (test code = LDL 79 (Calculated)) [facility] SoutheastDhxrserMWBOMK6919-22-28 11:56:00 Test Item Value Reference Range Interpretation Comments VLDL (test code = VLDL) 12 1 [facility] OMHTXXBSF0933-13-36 11:56:00 Test Item Value Reference Range Interpretation Comments Hgb A1C (test code = Hgb A1C) 5.9 [facility]2022-01-02 11:56:00 Test Item Value Reference Range Interpretation Comments Glucose Lvl (test code = Glucose Lvl) 94 70-99 [facility]2022-01-02 11:56:00 Test Item Value Reference Range Interpretation Comments BUN (test code = BUN) 12 7-22 [place] 115182-01-02 11:56:00 Test Item Value Reference Range Interpretation Comments Creatinine Lvl (test code = Creatinine 0.85 0.50-1.40 Lvl) [facility]2022-01-02 11:56:00 Test Item Value Reference Range Interpretation Comments Sodium Lvl (test code = Sodium Lvl) 146 135-145 [facility]2022-01-02 11:56:00 Test Item Value Reference Range Interpretation Comments Potassium Lvl (test code = Potassium 4.7 3.5-5.1 Lvl) [facility]2022-01-02 11:56:00 Test Item Value Reference Range Interpretation Comments Chloride Lvl (test code = Chloride Lvl) 113 95-109 [place] 115182-01-02 11:56:00 Test Item Value Reference Range Interpretation Comments CO2 (test code = CO2) 28 24-32 [facility]2022-01-02 11:56:00 Test Item Value Reference Range Interpretation Comments Calcium Lvl (test code = Calcium Lvl) 9.0 8.5-10.5 [facility]2022-01-02 11:56:00 Test Item Value Reference Range Interpretation Comments AGAP (test code = AGAP) 9.7 10.0-20.0 [facility]2022-01-02 11:56:00 Test Item Value Reference Range Interpretation Comments eGFR (test code = eGFR) 64 [facility]XjingnqVMWJVQZOSS4539-97-26 11:56:00 Test Item Value Reference Range Interpretation Comments Segs (test code = Segs) 66.1 45.0-75.0 [place] 861682-01-02 11:56:00 Test Item Value Reference Range Interpretation Comments Lymphocytes (test code = Lymphocytes) 19.5 20.0-40.0 [place] 861682-01-02 11:56:00 Test Item Value Reference Range Interpretation Comments Monocytes (test code = Monocytes) 10.6 2.0-12.0 [place] 861682-01-02 11:56:00 Test Item Value Reference Range Interpretation Comments Eosinophils (test code = 2.9 See_Comment [A utomated message] The Eosinophils) system which ge nerated this result tra nsmitted reference range : <=4.0. The reference r fermín was not used to int erpret this result as normal/abnormal . [place] 861682-01-02 11:56:00 Test Item Value Reference Range Interpretation Comments Basophils (test code = 0.9 See_Comment [Aut omated message] The Basophils) system which ge nerated this result tra nsmitted reference range : <=1.0. The reference r fermín was not used to int erpret this result as normal/abnormal . [place] 861682-01-02 11:56:00 Test Item Value Reference Range Interpretation Comments Neutrophils # (test code = Neutrophils 3.4 1.5-8.1 #) [place] 861682-01-02 11:56:00 Test Item Value Reference Range Interpretation Comments Lymphocytes # (test code = Lymphocytes 1.0 1.0-5.5 #) [place] 861682-01-02 11:56:00 Test Item Value Reference Range Interpretation Comments Monocytes # (test code 0.5 See_Comment [Aut omated message] The = Monocytes #) system which generated this result tra nsmitted reference range : <=0.8. The reference r fermín was not used to int erpret this result as normal/abnormal . [place] 861682-01-02 11:56:00 Test Item Value Reference Range Interpretation Comments Eosinophils # (test code 0.2 See_Comment [A utomated message] The = Eosinophils #) system whic h generated this result tra nsmitted reference range : <=0.5. The reference r fermín was not used to int erpret this result as normal/abnormal . [place] 861682-01-02 11:56:00 Test Item Value Reference Range Interpretation Comments WBC (test code = WBC) 5.2 3.7-10.4 [place] 861682-01-02 11:56:00 Test Item Value Reference Range Interpretation Comments RBC (test code = RBC) 3.45 4.20-5.40 [place] 861682-01-02 11:56:00 Test Item Value Reference Range Interpretation Comments Hgb (test code = Hgb) 10.8 12.0-16.0 [place] 861682-01-02 11:56:00 Test Item Value Reference Range Interpretation Comments Hct (test code = Hct) 32.2 36.0-48.0 [place] 861682-01-02 11:56:00 Test Item Value Reference Range Interpretation Comments MCV (test code = MCV) 93.4 80.0-98.0 [place] 861682-01-02 11:56:00 Test Item Value Reference Range Interpretation Comments MCH (test code = MCH) 31.3 pg 27.0-31.0 [place] 861682-01-02 11:56:00 Test Item Value Reference Range Interpretation Comments MCHC (test code = MCHC) 33.5 32.0-36.0 [facility] CenterRqzkzxvJVVSKPKEJF0908-22-54 11:56:00 Test Item Value Reference Range Interpretation Comments RDW (test code = RDW) 14.4 11.5-14.5 [place] 861682-01-02 11:56:00 Test Item Value Reference Range Interpretation Comments Platelet (test code = Platelet) 141 133-450 [place] 861682-01-02 11:56:00 Test Item Value Reference Range Interpretation Comments MPV (test code = MPV) 8.8 7.4-10.4 [place] 831262-01-02 11:56:00 Test Item Value Reference Range Interpretation Comments Trig (test code = Trig) 58 [place] 831262-01-02 11:56:00 Test Item Value Reference Range Interpretation Comments Chol (test code = Chol) 154 [place] 831262-01-02 11:56:00 Test Item Value Reference Range Interpretation Comments HDL (test code = HDL) 63 [place] 831262-01-02 11:56:00 Test Item Value Reference Range Interpretation Comments CHD Risk (test code = CHD Risk) 2.44 1 3.90-5.80 [facility]BcsrnmhSJFBJJ6083-16-19 11:56:00 Test Item Value Reference Range Interpretation Comments LDL (Calculated) (test code = LDL 79 (Calculated)) [facility] SoutheastGefqnhgNLGNBZ1764-06-74 11:56:00 Test Item Value Reference Range Interpretation Comments VLDL (test code = VLDL) 12 1 [facility] FKOSZFZDO7142-91-00 11:56:00 Test Item Value Reference Range Interpretation Comments Hgb A1C (test code = Hgb A1C) 5.9 [facility] XMJHR6404-12-86 11:56:00 Test Item Value Reference Range Interpretation Comments Glucose Lvl (test code = Glucose Lvl) 94 70-99 [place] 115182-01-02 11:56:00 Test Item Value Reference Range Interpretation Comments BUN (test code = BUN) 12 7- [place] 115182-01-02 11:56:00 Test Item Value Reference Range Interpretation Comments Creatinine Lvl (test code = Creatinine 0.85 0.50-1.40 Lvl) [facility]2022-01-02 11:56:00 Test Item Value Reference Range Interpretation Comments Sodium Lvl (test code = Sodium Lvl) 146 135-145 [facility]2022-01-02 11:56:00 Test Item Value Reference Range Interpretation Comments Potassium Lvl (test code = Potassium 4.7 3.5-5.1 Lvl) [facility]2022-01-02 11:56:00 Test Item Value Reference Range Interpretation Comments Chloride Lvl (test code = Chloride Lvl) 113 95-109 [facility]2022-01-02 11:56:00 Test Item Value Reference Range Interpretation Comments CO2 (test code = CO2) 28 24-32 [facility]2022-01-02 11:56:00 Test Item Value Reference Range Interpretation Comments Calcium Lvl (test code = Calcium Lvl) 9.0 8.5-10.5 [facility]2022-01-02 11:56:00 Test Item Value Reference Range Interpretation Comments AGAP (test code = AGAP) 9.7 10.0-20.0 [place] 115182-01-02 11:56:00 Test Item Value Reference Range Interpretation Comments eGFR (test code = eGFR) 64 [place] 861682-01-02 11:56:00 Test Item Value Reference Range Interpretation Comments Segs (test code = Segs) 66.1 45.0-75.0 [place] [address]-01-02 11:56:00 Test Item Value Reference Range Interpretation Comments Lymphocytes (test code = Lymphocytes) 19.5 20.0-40.0 [place] [address]-01-02 11:56:00 Test Item Value Reference Range Interpretation Comments Monocytes (test code = Monocytes) 10.6 2.0-12.0 [place] [address]-01-02 11:56:00 Test Item Value Reference Range Interpretation Comments Eosinophils (test code = Eosinophils) 2.9 <=4.0 [place] 861682-01-02 11:56:00 Test Item Value Reference Range Interpretation Comments Basophils (test code = Basophils) 0.9 <=1.0 [place] [address]-01-02 11:56:00 Test Item Value Reference Range Interpretation Comments Neutrophils # (test code = Neutrophils 3.4 1.5-8.1 #) [place] 861682-01-02 11:56:00 Test Item Value Reference Range Interpretation Comments Lymphocytes # (test code = Lymphocytes 1.0 1.0-5.5 #) [place] [address]-01-02 11:56:00 Test Item Value Reference Range Interpretation Comments Monocytes # (test code = Monocytes #) 0.5 <=0.8 [place] [address]-01-02 11:56:00 Test Item Value Reference Range Interpretation Comments Eosinophils # (test code = Eosinophils 0.2 <=0.5 #) [place] [address]-01-02 11:56:00 Test Item Value Reference Range Interpretation Comments WBC (test code = WBC) 5.2 3.7-10.4 [place] 861682-01-02 11:56:00 Test Item Value Reference Range Interpretation Comments RBC (test code = RBC) 3.45 4.20-5.40 [place] 861682-01-02 11:56:00 Test Item Value Reference Range Interpretation Comments Hgb (test code = Hgb) 10.8 12.0-16.0 [facility]XxdvatnDASOEKJMVF0593-77-67 11:56:00 Test Item Value Reference Range Interpretation Comments Hct (test code = Hct) 32.2 36.0-48.0 [facility]GffvhtqFVHCDPSDGW4366-85-94 11:56:00 Test Item Value Reference Range Interpretation Comments MCV (test code = MCV) 93.4 80.0-98.0 [facility]NopksjqYJHRPLZHWU1961-40-33 11:56:00 Test Item Value Reference Range Interpretation Comments MCH (test code = MCH) 31.3 pg 27.0-31.0 [facility]SshtmivQQQAXULDSN2992-83-23 11:56:00 Test Item Value Reference Range Interpretation Comments MCHC (test code = MCHC) 33.5 32.0-36.0 [facility]TmtvejoXEDASFKSMT4981-76-18 11:56:00 Test Item Value Reference Range Interpretation Comments RDW (test code = RDW) 14.4 11.5-14.5 [facility]XzqcvzhOUKJBFSRCY2586-07-10 11:56:00 Test Item Value Reference Range Interpretation Comments Platelet (test code = Platelet) 141 133-450 [facility]intHruleikOIVMCROTSV2184-31-64 11:56:00 Test Item Value Reference Range Interpretation Comments MPV (test code = MPV) 8.8 7.4-10.4 [facility]CfqswiuIBBTTX1862-95-22 11:56:00 Test Item Value Reference Range Interpretation Comments Trig (test code = Trig) 58 [facility]VrrkutjSKJOJK6028-02-47 11:56:00 Test Item Value Reference Range Interpretation Comments Chol (test code = Chol) 154 [facility] SoutheastUylmfebONETAP7018-49-57 11:56:00 Test Item Value Reference Range Interpretation Comments HDL (test code = HDL) 63 [facility] SoutheastPakewczQEPZVU8284-66-21 11:56:00 Test Item Value Reference Range Interpretation Comments CHD Risk (test code = CHD Risk) 2.44 1 3.90-5.80 [facility] SoutheastQraicvnTELPUE5056-79-31 11:56:00 Test Item Value Reference Range Interpretation Comments LDL (Calculated) (test code = LDL 79 (Calculated)) [facility] [id number] 11:56:00 Test Item Value Reference Range Interpretation Comments VLDL (test code = VLDL) 12 1 [facility] [id number] 11:56:00 Test Item Value Reference Range Interpretation Comments Hgb A1C (test code = Hgb A1C) 5.9 [facility] AND [id number] 08:33:00 Test Item Value Reference Range Interpretation Comments UA Turbidity (test code Slight *ABN*(05/08/21 = UA Turbidity) 2:33 AM) [facility] AND [id number] 08:33:00 Test Item Value Reference Range Interpretation Comments UA Spec Grav (test code = UA Spec 1.012 1 Grav) [facility] AND [id number] 08:33:00 Test Item Value Reference Range Interpretation Comments UA pH (test code = UA pH) 5.0 1 5.0-8.0 [facility] AND [id number] 08:33:00 Test Item Value Reference Range Interpretation Comments UA Protein (test code = UA Negative mg/dL Protein) [facility] AND [id number] 08:33:00 Test Item Value Reference Range Interpretation Comments UA Glucose (test code = UA Negative mg/dL Glucose) [facility] AND [id number] 08:33:00 Test Item Value Reference Range Interpretation Comments UA Ketones (test code = UA Negative mg/dL Ketones) [facility] AND [id number] 08:33:00 Test Item Value Reference Range Interpretation Comments UA Bili (test code = Negative *NA*(05/08/21 UA Bili) 2:33 AM) [facility] AND [id number] 08:33:00 Test Item Value Reference Range Interpretation Comments UA Blood (test code = Small *ABN*(05/08/21 UA Blood) 2:33 AM) [facility] AND [id number] 08:33:00 Test Item Value Reference Range Interpretation Comments UA Nitrite (test code Negative (05/08/21 2:33 = UA Nitrite) AM) [facility] AND [id number] 08:33:00 Test Item Value Reference Range Interpretation Comments UA Leuk Est (test code Large *ABN*(05/08/21 2:33 = UA Leuk Est) AM) [facility] AND [id number] 08:33:00 Test Item Value Reference Range Interpretation Comments UA Sq Epi (test code = UA Sq Occasional /LPF Epi) [facility] AND [id number] 08:33:00 Test Item Value Reference Range Interpretation Comments UA WBC (test code = 65 See_Comment [Automa kalie message] The UA WBC) system which ge nerated this result transmit kalie reference range : <=5. The reference range was not used to interpr et this result as phyllis l/abnormal. [facility] AND [id number] 08:33:00 Test Item Value Reference Range Interpretation Comments UA RBC (test code = 2 See_Comment [Automa kalie message] The UA RBC) system which ge nerated this result transmit kalie reference range : <=2. The reference range was not used to interpr et this result as phyllis l/abnormal. [facility] AND [id number] 08:33:00 Test Item Value Reference Range Interpretation Comments UA Color (test code = UA Color) Ltyellow [facility] AND [id number] 08:33:00 Test Item Value Reference Range Interpretation Comments UA Urobilinogen (test code = UA <=1.0 mg/dL 0.1-1.0 Urobilinogen) [facility] AND [id number] 08:33:00 Test Item Value Reference Range Interpretation Comments UA Turbidity (test code Slight *ABN*(05/08/21 = UA Turbidity) 2:33 AM) [facility] AND [id number] 08:33:00 Test Item Value Reference Range Interpretation Comments UA Spec Grav (test code = UA Spec 1.012 1 Grav) [facility] AND [id number] 08:33:00 Test Item Value Reference Range Interpretation Comments UA pH (test code = UA pH) 5.0 1 5.0-8.0 [facility] AND [id number] 08:33:00 Test Item Value Reference Range Interpretation Comments UA Protein (test code = UA Negative mg/dL Protein) [facility] AND [id number] 08:33:00 Test Item Value Reference Range Interpretation Comments UA Glucose (test code = UA Negative mg/dL Glucose) [facility] AND [id number] 08:33:00 Test Item Value Reference Range Interpretation Comments UA Ketones (test code = UA Negative mg/dL Ketones) [facility] [id number] 08:33:00 Test Item Value Reference Range Interpretation Comments UA Bili (test code = Negative *NA*(05/08/21 UA Bili) 2:33 AM) [facility] AND [id number] 08:33:00 Test Item Value Reference Range Interpretation Comments UA Blood (test code = Small *ABN*(05/08/21 UA Blood) 2:33 AM) [facility] AND [id number] 08:33:00 Test Item Value Reference Range Interpretation Comments UA Nitrite (test code Negative (05/08/21 2:33 = UA Nitrite) AM) [facility] [id number] 08:33:00 Test Item Value Reference Range Interpretation Comments UA Leuk Est (test code Large *ABN*(05/08/21 2:33 = UA Leuk Est) AM) [facility] AND [id number] 08:33:00 Test Item Value Reference Range Interpretation Comments UA Sq Epi (test code = UA Sq Occasional /LPF Epi) [facility] AND [id number] 08:33:00 Test Item Value Reference Range Interpretation Comments UA WBC (test code = 65 See_Comment [Automa kalie message] The UA WBC) system which ge nerated this result transmit kalie reference range : <=5. The reference range was not used to interpr et this result as phyllis l/abnormal. [facility] AND [id number] 08:33:00 Test Item Value Reference Range Interpretation Comments UA RBC (test code = 2 See_Comment [Automa kalie message] The UA RBC) system which ge nerated this result transmit kalie reference range : <=2. The reference range was not used to interpr et this result as phyllis l/abnormal. [facility] AND [id number] 08:33:00 Test Item Value Reference Range Interpretation Comments UA Color (test code = UA Color) Ltyellow [facility] AND [id number] 08:33:00 Test Item Value Reference Range Interpretation Comments UA Urobilinogen (test code = UA <=1.0 mg/dL 0.1-1.0 Urobilinogen) [facility] AND [id number] 08:33:00 Test Item Value Reference Range Interpretation Comments UA Turbidity (test code Slight *ABN*(05/08/21 = UA Turbidity) 2:33 AM) [facility] AND [id number] 08:33:00 Test Item Value Reference Range Interpretation Comments UA Spec Grav (test code = UA Spec 1.012 1 Grav) [facility] AND [id number] 08:33:00 Test Item Value Reference Range Interpretation Comments UA pH (test code = UA pH) 5.0 1 5.0-8.0 [facility] AND [id number] 08:33:00 Test Item Value Reference Range Interpretation Comments UA Protein (test code = UA Negative mg/dL Protein) [facility] AND [id number] 08:33:00 Test Item Value Reference Range Interpretation Comments UA Glucose (test code = UA Negative mg/dL Glucose) [facility] AND [id number] 08:33:00 Test Item Value Reference Range Interpretation Comments UA Ketones (test code = UA Negative mg/dL Ketones) [facility] AND [id number] 08:33:00 Test Item Value Reference Range Interpretation Comments UA Bili (test code = Negative *NA*(05/08/21 UA Bili) 2:33 AM) [facility] AND [id number] 08:33:00 Test Item Value Reference Range Interpretation Comments UA Blood (test code = Small *ABN*(05/08/21 UA Blood) 2:33 AM) [facility] AND [id number] 08:33:00 Test Item Value Reference Range Interpretation Comments UA Nitrite (test code Negative (05/08/21 2:33 = UA Nitrite) AM) [facility] AND [id number] 08:33:00 Test Item Value Reference Range Interpretation Comments UA Leuk Est (test code Large *ABN*(05/08/21 2:33 = UA Leuk Est) AM) [facility] AND [id number] 08:33:00 Test Item Value Reference Range Interpretation Comments UA Sq Epi (test code = UA Sq Occasional /LPF Epi) [facility] AND [id number] 08:33:00 Test Item Value Reference Range Interpretation Comments UA WBC (test code = 65 See_Comment [Automa kalie message] The UA WBC) system which ge nerated this result transmit kalie reference range : <=5. The reference range was not used to interpr et this result as phyllis l/abnormal. [facility] AND [id number] 08:33:00 Test Item Value Reference Range Interpretation Comments UA RBC (test code = 2 See_Comment [Automa kalie message] The UA RBC) system which ge nerated this result transmit kalie reference range : <=2. The reference range was not used to interpr et this result as phyllis l/abnormal. [facility] AND [id number] 08:33:00 Test Item Value Reference Range Interpretation Comments UA Color (test code = UA Color) Ltyellow [facility] AND [id number] 08:33:00 Test Item Value Reference Range Interpretation Comments UA Urobilinogen (test code = UA <=1.0 mg/dL 0.1-1.0 Urobilinogen) [facility] AND [id number] 08:33:00 Test Item Value Reference Range Interpretation Comments UA Turbidity (test code Slight *ABN*(05/08/21 = UA Turbidity) 2:33 AM) [facility] AND [id number] 08:33:00 Test Item Value Reference Range Interpretation Comments UA Spec Grav (test code = UA Spec 1.012 1 Grav) [facility] AND [id number] 08:33:00 Test Item Value Reference Range Interpretation Comments UA pH (test code = UA pH) 5.0 1 5.0-8.0 [facility] AND [id number] 08:33:00 Test Item Value Reference Range Interpretation Comments UA Protein (test code = UA Negative mg/dL Protein) [facility] AND [id number] 08:33:00 Test Item Value Reference Range Interpretation Comments UA Glucose (test code = UA Negative mg/dL Glucose) [facility] AND [id number] 08:33:00 Test Item Value Reference Range Interpretation Comments UA Ketones (test code = UA Negative mg/dL Ketones) [facility] AND [id number] 08:33:00 Test Item Value Reference Range Interpretation Comments UA Bili (test code = Negative *NA*(05/08/21 UA Bili) 2:33 AM) [facility] [id number] 08:33:00 Test Item Value Reference Range Interpretation Comments UA Blood (test code = Small *ABN*(05/08/21 UA Blood) 2:33 AM) [facility] [id number] 08:33:00 Test Item Value Reference Range Interpretation Comments UA Nitrite (test code Negative (05/08/21 2:33 = UA Nitrite) AM) [facility] AND [id number] 08:33:00 Test Item Value Reference Range Interpretation Comments UA Leuk Est (test code Large *ABN*(05/08/21 2:33 = UA Leuk Est) AM) [facility] [id number] 08:33:00 Test Item Value Reference Range Interpretation Comments UA Sq Epi (test code = UA Sq Occasional /LPF Epi) [facility] AND [id number] 08:33:00 Test Item Value Reference Range Interpretation Comments UA WBC (test code = 65 See_Comment [Automa kalie message] The UA WBC) system which ge nerated this result transmit kalie reference range : <=5. The reference range was not used to interpr et this result as phyllis l/abnormal. [facility] AND [id number] 08:33:00 Test Item Value Reference Range Interpretation Comments UA RBC (test code = 2 See_Comment [Automa kalie message] The UA RBC) system which ge nerated this result transmit kalie reference range : <=2. The reference range was not used to interpr et this result as phyllis l/abnormal. [facility] AND [id number] 08:33:00 Test Item Value Reference Range Interpretation Comments UA Color (test code = UA Color) Ltyellow [facility] [id number] 08:33:00 Test Item Value Reference Range Interpretation Comments UA Urobilinogen (test code = UA <=1.0 mg/dL 0.1-1.0 Urobilinogen) [facility] [id number] 08:33:00 Test Item Value Reference Range Interpretation Comments UA Turbidity (test code Slight *ABN*(05/08/21 = UA Turbidity) 2:33 AM) [facility] [id number] 08:33:00 Test Item Value Reference Range Interpretation Comments UA Spec Grav (test code = UA Spec 1.012 1 Grav) [facility] AND [id number] 08:33:00 Test Item Value Reference Range Interpretation Comments UA pH (test code = UA pH) 5.0 1 5.0-8.0 [facility] AND [id number] 08:33:00 Test Item Value Reference Range Interpretation Comments UA Protein (test code = UA Negative mg/dL Protein) [facility] AND [id number] 08:33:00 Test Item Value Reference Range Interpretation Comments UA Glucose (test code = UA Negative mg/dL Glucose) [facility] AND [id number] 08:33:00 Test Item Value Reference Range Interpretation Comments UA Ketones (test code = UA Negative mg/dL Ketones) [facility] AND [id number] 08:33:00 Test Item Value Reference Range Interpretation Comments UA Bili (test code = Negative *NA*(05/08/21 UA Bili) 2:33 AM) [facility] AND [id number] 08:33:00 Test Item Value Reference Range Interpretation Comments UA Blood (test code = Small *ABN*(05/08/21 UA Blood) 2:33 AM) [facility] AND [id number] 08:33:00 Test Item Value Reference Range Interpretation Comments UA Nitrite (test code Negative (05/08/21 2:33 = UA Nitrite) AM) [facility] AND [id number] 08:33:00 Test Item Value Reference Range Interpretation Comments UA Leuk Est (test code Large *ABN*(05/08/21 2:33 = UA Leuk Est) AM) [facility] AND [id number] 08:33:00 Test Item Value Reference Range Interpretation Comments UA Sq Epi (test code = UA Sq Occasional /LPF Epi) [facility] AND [id number] 08:33:00 Test Item Value Reference Range Interpretation Comments UA WBC (test code = UA WBC) 65 <=5 [facility] AND [id number] 08:33:00 Test Item Value Reference Range Interpretation Comments UA RBC (test code = UA RBC) 2 <=2 [facility] AND [id number] 08:33:00 Test Item Value Reference Range Interpretation Comments UA Color (test code = UA Color) Ltyellow [facility] AND [id number] 08:33:00 Test Item Value Reference Range Interpretation Comments UA Urobilinogen (test code = UA <=1.0 mg/dL 0.1-1.0 Urobilinogen) [facility] AND [id number] 20:23:00 Test Item Value Reference Range Interpretation Comments UA Turbidity (test code = Clear (05/07/21 2:23 UA Turbidity) PM) [facility] AND [id number] 20:23:00 Test Item Value Reference Range Interpretation Comments UA Spec Grav (test code = UA Spec 1.005 1 Grav) [facility] AND [id number] 20:23:00 Test Item Value Reference Range Interpretation Comments UA pH (test code = UA pH) 5.0 1 5.0-8.0 [facility] AND [id number] 20:23:00 Test Item Value Reference Range Interpretation Comments UA Protein (test code = UA Negative mg/dL Protein) [facility] AND [id number] 20:23:00 Test Item Value Reference Range Interpretation Comments UA Glucose (test code = UA Negative mg/dL Glucose) [facility] AND [id number] 20:23:00 Test Item Value Reference Range Interpretation Comments UA Ketones (test code = UA Negative mg/dL Ketones) [facility] AND [id number] 20:23:00 Test Item Value Reference Range Interpretation Comments UA Bili (test code = Negative *NA*(05/07/21 UA Bili) 2:23 PM) [facility] AND [id number] 20:23:00 Test Item Value Reference Range Interpretation Comments UA Blood (test code = Small *ABN*(05/07/21 UA Blood) 2:23 PM) [facility] AND [id number] 20:23:00 Test Item Value Reference Range Interpretation Comments UA Nitrite (test code Negative (05/07/21 2:23 = UA Nitrite) PM) [facility] AND [id number] 20:23:00 Test Item Value Reference Range Interpretation Comments UA Leuk Est (test code Trace *ABN*(05/07/21 2:23 = UA Leuk Est) PM) [facility] [id number] 20:23:00 Test Item Value Reference Range Interpretation Comments UA WBC (test code = 6 See_Comment [Automa kalie message] The UA WBC) system which ge nerated this result transmit kalie reference range : <=5. The reference range was not used to interpr et this result as phyllis l/abnormal. [facility] [id number] 20:23:00 Test Item Value Reference Range Interpretation Comments UA RBC (test code = no gt See_Comment [Automa kalie message] The UA RBC) system which ge nerated this result transmit kalie reference range : <=2. The reference range was not used to interpr et this result as phyllis l/abnormal. [facility] [id number] 20:23:00 Test Item Value Reference Range Interpretation Comments UA Hyal Cast (test 1 See_Comment [Automat ed message] The code = UA Hyal Cast) system which generated this result transmit kaile reference range : <=2. The reference range was not used to interpr et this result as phyllis l/abnormal. [facility] [id number] 20:23:00 Test Item Value Reference Range Interpretation Comments UA Sq Epi (test code = UA Sq Epi) None [facility]en [facility] [id number] 20:23:00 Test Item Value Reference Range Interpretation Comments UA Color (test code = UA Color) STRAW [facility] [id number] 20:23:00 Test Item Value Reference Range Interpretation Comments UA Urobilinogen (test code = UA <=1.0 mg/dL 0.1-1.0 Urobilinogen) [facility] [id number] 20:23:00 Test Item Value Reference Range Interpretation Comments UA Turbidity (test code = Clear (05/07/21 2:23 UA Turbidity) PM) [facility] [id number] 20:23:00 Test Item Value Reference Range Interpretation Comments UA Spec Grav (test code = UA Spec 1.005 1 Grav) [facility] [id number] 20:23:00 Test Item Value Reference Range Interpretation Comments UA pH (test code = UA pH) 5.0 1 5.0-8.0 [facility] [id number] 20:23:00 Test Item Value Reference Range Interpretation Comments UA Protein (test code = UA Negative mg/dL Protein) [facility] AND [id number] 20:23:00 Test Item Value Reference Range Interpretation Comments UA Glucose (test code = UA Negative mg/dL Glucose) [facility] AND [id number] 20:23:00 Test Item Value Reference Range Interpretation Comments UA Ketones (test code = UA Negative mg/dL Ketones) [facility] AND [id number] 20:23:00 Test Item Value Reference Range Interpretation Comments UA Bili (test code = Negative *NA*(05/07/21 UA Bili) 2:23 PM) [facility] AND [id number] 20:23:00 Test Item Value Reference Range Interpretation Comments UA Blood (test code = Small *ABN*(05/07/21 UA Blood) 2:23 PM) [facility] AND [id number] 20:23:00 Test Item Value Reference Range Interpretation Comments UA Nitrite (test code Negative (05/07/21 2:23 = UA Nitrite) PM) [facility] AND [id number] 20:23:00 Test Item Value Reference Range Interpretation Comments UA Leuk Est (test code Trace *ABN*(05/07/21 2:23 = UA Leuk Est) PM) [facility] AND [id number] 20:23:00 Test Item Value Reference Range Interpretation Comments UA WBC (test code = 6 See_Comment [Automa kalie message] The UA WBC) system which ge nerated this result transmit kalie reference range : <=5. The reference range was not used to interpr et this result as phyllis l/abnormal. [facility] AND [id number] 20:23:00 Test Item Value Reference Range Interpretation Comments UA RBC (test code = no gt See_Comment [Automa kalie message] The UA RBC) system which ge nerated this result transmit kalie reference range : <=2. The reference range was not used to interpr et this result as phyllis l/abnormal. [facility] AND [id number] 20:23:00 Test Item Value Reference Range Interpretation Comments UA Hyal Cast (test 1 See_Comment [Automat ed message] The code = UA Hyal Cast) system which generated this result transmit kalie reference range : <=2. The reference range was not used to interpr et this result as phyllis l/abnormal. [facility] AND [id number] 20:23:00 Test Item Value Reference Range Interpretation Comments UA Sq Epi (test code = UA Sq Epi) None Seen [facility] AND [id number] 20:23:00 Test Item Value Reference Range Interpretation Comments UA Color (test code = UA Color) STRAW [facility] AND [id number] 20:23:00 Test Item Value Reference Range Interpretation Comments UA Urobilinogen (test code = UA <=1.0 mg/dL 0.1-1.0 Urobilinogen) [facility] AND [id number] 20:23:00 Test Item Value Reference Range Interpretation Comments UA Turbidity (test code = Clear (05/07/21 2:23 UA Turbidity) PM) [facility] AND [id number] 20:23:00 Test Item Value Reference Range Interpretation Comments UA Spec Grav (test code = UA Spec 1.005 1 Grav) [facility] AND [id number] 20:23:00 Test Item Value Reference Range Interpretation Comments UA pH (test code = UA pH) 5.0 1 5.0-8.0 [facility] AND [id number] 20:23:00 Test Item Value Reference Range Interpretation Comments UA Protein (test code = UA Negative mg/dL Protein) [facility] AND [id number] 20:23:00 Test Item Value Reference Range Interpretation Comments UA Glucose (test code = UA Negative mg/dL Glucose) [facility] AND [id number] 20:23:00 Test Item Value Reference Range Interpretation Comments UA Ketones (test code = UA Negative mg/dL Ketones) [facility] AND [id number] 20:23:00 Test Item Value Reference Range Interpretation Comments UA Bili (test code = Negative *NA*(05/07/21 UA Bili) 2:23 PM) [facility] AND [id number] 20:23:00 Test Item Value Reference Range Interpretation Comments UA Blood (test code = Small *ABN*(1/1/22 UA Blood) 2:23 PM) [facility] [id number] 20:23:00 Test Item Value Reference Range Interpretation Comments UA Nitrite (test code Negative (05/07/21 2:23 = UA Nitrite) PM) [facility] [id number] 20:23:00 Test Item Value Reference Range Interpretation Comments UA Leuk Est (test code Trace *ABN*(05/07/21 2:23 = UA Leuk Est) PM) [facility] [id number] 20:23:00 Test Item Value Reference Range Interpretation Comments UA WBC (test code = 6 See_Comment [Automa kalie message] The UA WBC) system which ge nerated this result transmit kalie reference range : <=5. The reference range was not used to interpr et this result as phyllis l/abnormal. [facility] [id number] 20:23:00 Test Item Value Reference Range Interpretation Comments UA RBC (test code = no gt See_Comment [Automa kalie message] The UA RBC) system which ge nerated this result transmit kalie reference range : <=2. The reference range was not used to interpr et this result as phyllis l/abnormal. [facility] AND [id number] 20:23:00 Test Item Value Reference Range Interpretation Comments UA Hyal Cast (test 1 See_Comment [Automat ed message] The code = UA Hyal Cast) system which generated this result transmit kalie reference range : <=2. The reference range was not used to interpr et this result as phyllis l/abnormal. [facility] [id number] 20:23:00 Test Item Value Reference Range Interpretation Comments UA Sq Epi (test code = UA Sq Epi) None [facility] [id number] 20:23:00 Test Item Value Reference Range Interpretation Comments UA Color (test code = UA Color) [facility]AW [facility] [id number] 20:23:00 Test Item Value Reference Range Interpretation Comments UA Urobilinogen (test code = UA <=1.0 mg/dL 0.1-1.0 Urobilinogen) [facility] [id number] 20:23:00 Test Item Value Reference Range Interpretation Comments UA Turbidity (test code = Clear (05/07/21 2:23 UA Turbidity) PM) [facility] AND [id number] 20:23:00 Test Item Value Reference Range Interpretation Comments UA Spec Grav (test code = UA Spec 1.005 1 Grav) [facility] AND [id number] 20:23:00 Test Item Value Reference Range Interpretation Comments UA pH (test code = UA pH) 5.0 1 5.0-8.0 [facility] AND [id number] 20:23:00 Test Item Value Reference Range Interpretation Comments UA Protein (test code = UA Negative mg/dL Protein) [facility] AND [id number] 20:23:00 Test Item Value Reference Range Interpretation Comments UA Glucose (test code = UA Negative mg/dL Glucose) [facility] AND [id number] 20:23:00 Test Item Value Reference Range Interpretation Comments UA Ketones (test code = UA Negative mg/dL Ketones) [facility] AND [id number] 20:23:00 Test Item Value Reference Range Interpretation Comments UA Bili (test code = Negative *NA*(05/07/21 UA Bili) 2:23 PM) [facility] AND [id number] 20:23:00 Test Item Value Reference Range Interpretation Comments UA Blood (test code = Small *ABN*(05/07/21 UA Blood) 2:23 PM) [facility] AND [id number] 20:23:00 Test Item Value Reference Range Interpretation Comments UA Nitrite (test code Negative (05/07/21 2:23 = UA Nitrite) PM) [facility] AND [id number] 20:23:00 Test Item Value Reference Range Interpretation Comments UA Leuk Est (test code Trace *ABN*(05/07/21 2:23 = UA Leuk Est) PM) [facility] AND [id number] 20:23:00 Test Item Value Reference Range Interpretation Comments UA WBC (test code = 6 See_Comment [Automa kalie message] The UA WBC) system which ge nerated this result transmit kalie reference range : <=5. The reference range was not used to interpr et this result as phyllis l/abnormal. [facility] AND [id number] 20:23:00 Test Item Value Reference Range Interpretation Comments UA RBC (test code = no gt See_Comment [Automa kalie message] The UA RBC) system which ge nerated this result transmit kalie reference range : <=2. The reference range was not used to interpr et this result as phyllis l/abnormal. [facility] AND [id number] 20:23:00 Test Item Value Reference Range Interpretation Comments UA Hyal Cast (test 1 See_Comment [Automat ed message] The code = UA Hyal Cast) system which generated this result transmit kalie reference range : <=2. The reference range was not used to interpr et this result as phyllis l/abnormal. [facility] AND [id number] 20:23:00 Test Item Value Reference Range Interpretation Comments UA Sq Epi (test code = UA Sq Epi) None Seen [facility] AND [id number] 20:23:00 Test Item Value Reference Range Interpretation Comments UA Color (test code = UA Color) STRAW [facility] AND [id number] 20:23:00 Test Item Value Reference Range Interpretation Comments UA Urobilinogen (test code = UA <=1.0 mg/dL 0.1-1.0 Urobilinogen) [facility] AND [id number] 20:23:00 Test Item Value Reference Range Interpretation Comments UA Turbidity (test code = Clear (05/07/21 2:23 UA Turbidity) PM) [facility] AND [id number] 20:23:00 Test Item Value Reference Range Interpretation Comments UA Spec Grav (test code = UA Spec 1.005 1 Grav) [facility] AND [id number] 20:23:00 Test Item Value Reference Range Interpretation Comments UA pH (test code = UA pH) 5.0 1 5.0-8.0 [facility] AND [id number] 20:23:00 Test Item Value Reference Range Interpretation Comments UA Protein (test code = UA Negative mg/dL Protein) [facility] AND [id number] 20:23:00 Test Item Value Reference Range Interpretation Comments UA Glucose (test code = UA Negative mg/dL Glucose) [facility] AND [id number] 20:23:00 Test Item Value Reference Range Interpretation Comments UA Ketones (test code = UA Negative mg/dL Ketones) [facility] AND [id number] 20:23:00 Test Item Value Reference Range Interpretation Comments UA Bili (test code = Negative *NA*(05/07/21 UA Bili) 2:23 PM) [facility] AND [id number] 20:23:00 Test Item Value Reference Range Interpretation Comments UA Blood (test code = Small *ABN*(05/07/21 UA Blood) 2:23 PM) [facility] AND [id number] 20:23:00 Test Item Value Reference Range Interpretation Comments UA Nitrite (test code Negative (05/07/21 2:23 = UA Nitrite) PM) [facility] AND [id number] 20:23:00 Test Item Value Reference Range Interpretation Comments UA Leuk Est (test code Trace *ABN*(05/07/21 2:23 = UA Leuk Est) PM) [facility] AND [id number] 20:23:00 Test Item Value Reference Range Interpretation Comments UA WBC (test code = UA WBC) 6 <=5 [facility] AND [id number] 20:23:00 Test Item Value Reference Range Interpretation Comments UA RBC (test code = UA RBC) no gt <=2 [facility] AND [id number] 20:23:00 Test Item Value Reference Range Interpretation Comments UA Hyal Cast (test code = UA Hyal Cast) 1 <=2 [facility] AND [id number] 20:23:00 Test Item Value Reference Range Interpretation Comments UA Sq Epi (test code = UA Sq Epi) None Seen [facility] AND [id number] 20:23:00 Test Item Value Reference Range Interpretation Comments UA Color (test code = UA Color) STRAW [facility] AND [id number] 20:23:00 Test Item Value Reference Range Interpretation Comments UA Urobilinogen (test code = UA <=1.0 mg/dL 0.1-1.0 Urobilinogen) [facility]ntueOMKXTCJULH7945-22-99 18:18:00 Test Item Value Reference Range Interpretation Comments PT (test code = PT) 14.1 s 12.0-14.7 [id number] 18:18:00 Test Item Value Reference Range Interpretation Comments INR (test code = INR) 1.10 1 0.85-1.17 [facility]cevvcbLZBHIDTMKC6067-69-10 18:18:00 Test Item Value Reference Range Interpretation Comments PTT (test code = PTT) 22.9 s 22.9-35.8 [facility]ODAZNPJ4279-46-90 18:18:00 Test Item Value Reference Range Interpretation Comments Coronavirus (COVID-19) Not Detected (05/07/21 DIMAS (test code = 12:18 PM) Coronavirus (COVID-19) DIMAS) [facility] CenterYakrjzmKRUFRTHVMV0587-43-37 18:18:00 Test Item Value Reference Range Interpretation Comments PT (test code = PT) 14.1 s 12.0-14.7 [place] 861682-01-01 18:18:00 Test Item Value Reference Range Interpretation Comments INR (test code = INR) 1.10 1 0.85-1.17 [place] 861682-01-01 18:18:00 Test Item Value Reference Range Interpretation Comments PTT (test code = PTT) 22.9 s 22.9-35.8 [place] [id number] 18:18:00 Test Item Value Reference Range Interpretation Comments Coronavirus (COVID-19) Not Detected (05/07/21 DIMAS (test code = 12:18 PM) Coronavirus (COVID-19) DIMAS) [facility] C[id number] 18:18:00 Test Item Value Reference Range Interpretation Comments PT (test code = PT) 14.1 s 12.0-14.7 [facility] CenterQmfkzznTWXLAXMFDC0079-17-70 18:18:00 Test Item Value Reference Range Interpretation Comments INR (test code = INR) 1.10 1 0.85-1.17 [place] 861682-01-01 18:18:00 Test Item Value Reference Range Interpretation Comments PTT (test code = PTT) 22.9 s 22.9-35.8 [place] [address]-01-01 18:18:00 Test Item Value Reference Range Interpretation Comments Coronavirus (COVID-19) Not Detected (05/07/21 DIMAS (test code = 12:18 PM) Coronavirus (COVID-19) DIMAS) [facility] [id number] 18:18:00 Test Item Value Reference Range Interpretation Comments PT (test code = PT) 14.1 s 12.0-14.7 [facility] CenterLizqbjwDOUZRPJSFK1275-80-28 18:18:00 Test Item Value Reference Range Interpretation Comments INR (test code = INR) 1.10 1 0.85-1.17 [place] 861682-01-01 18:18:00 Test Item Value Reference Range Interpretation Comments PTT (test code = PTT) 22.9 s 22.9-35.8 [facility] HospitalSqswzniFUJLPJYWGL0278-12-44 18:18:00 Test Item Value Reference Range Interpretation Comments Coronavirus (COVID-19) Not Detected (05/07/21 DIMAS (test code = 12:18 PM) Coronavirus (COVID-19) DIMAS) [facility] CenterYdizrpdHDVMMUQBEM0137-96-15 18:18:00 Test Item Value Reference Range Interpretation Comments PT (test code = PT) 14.1 s 12.0-14.7 [facility] CenterVzlgyqyPVVQQGEWIB5650-88-66 18:18:00 Test Item Value Reference Range Interpretation Comments INR (test code = INR) 1.10 1 0.85-1.17 [facility] CenterSfzxvksVAXTRYKJTW6947-58-75 18:18:00 Test Item Value Reference Range Interpretation Comments PTT (test code = PTT) 22.9 s 22.9-35.8 [facility] HospitalSfqveblAKDCTPGQPX1186-82-93 18:18:00 Test Item Value Reference Range Interpretation Comments Coronavirus (COVID-19) Not Detected (05/07/21 DIMAS (test code = 12:18 PM) Coronavirus (COVID-19) DIMAS) [facility] [id number] 18:09:00 Test Item Value Reference Range Interpretation Comments Total CK (test code = Total CK) 143 12-191 [facility] [id number] 18:09:00 Test Item Value Reference Range Interpretation Comments HS Troponin I (test code = HS Troponin 22.6 I) [facility] SoutheastOr[facility] Minder [id number] 18:09:00 Test Item Value Reference Range Interpretation Comments Glucose Lvl (test code = Glucose Lvl) 97 70-99 [facility] SoutheastSoftoCoupon [id number] 18:09:00 Test Item Value Reference Range Interpretation Comments BUN (test code = BUN) 12 7-22 [facility] [id number] 18:09:00 Test Item Value Reference Range Interpretation Comments Creatinine Lvl (test code = Creatinine 0.91 0.50-1.40 Lvl) [place] 115182-01-01 18:09:00 Test Item Value Reference Range Interpretation Comments Sodium Lvl (test code = Sodium Lvl) 139 135-145 [place] 115182-01-01 18:09:00 Test Item Value Reference Range Interpretation Comments Potassium Lvl (test code = Potassium 4.2 3.5-5.1 Lvl) [facility]2022-01-01 18:09:00 Test Item Value Reference Range Interpretation Comments Chloride Lvl (test code = Chloride Lvl) 111 95-109 [place] 115182-01-01 18:09:00 Test Item Value Reference Range Interpretation Comments CO2 (test code = CO2) 22 24-32 [place] 115182-01-01 18:09:00 Test Item Value Reference Range Interpretation Comments Calcium Lvl (test code = Calcium Lvl) 9.3 8.5-10.5 [place] 115182-01-01 18:09:00 Test Item Value Reference Range Interpretation Comments AGAP (test code = AGAP) 10.2 10.0-20.0 [facility]2022-01-01 18:09:00 Test Item Value Reference Range Interpretation Comments eGFR (test code = eGFR) 60 [facility] CenterDgikzplTVJNFGJGNJ8621-98-72 18:09:00 Test Item Value Reference Range Interpretation Comments WBC (test code = WBC) 4.8 3.7-10.4 [place] 861682-01-01 18:09:00 Test Item Value Reference Range Interpretation Comments RBC (test code = RBC) 4.21 4.20-5.40 [place] 861682-01-01 18:09:00 Test Item Value Reference Range Interpretation Comments Hgb (test code = Hgb) 13.0 12.0-16.0 [place] 861682-01-01 18:09:00 Test Item Value Reference Range Interpretation Comments Hct (test code = Hct) 39.5 36.0-48.0 [place] 861682-01-01 18:09:00 Test Item Value Reference Range Interpretation Comments MCV (test code = MCV) 93.9 80.0-98.0 [facility] CenterYyxcwjsFEUBNVKTOQ4866-49-94 18:09:00 Test Item Value Reference Range Interpretation Comments MCH (test code = MCH) 30.9 pg 27.0-31.0 [facility] CenterFgrkztfRDNUWMDJJC9507-85-70 18:09:00 Test Item Value Reference Range Interpretation Comments MCHC (test code = MCHC) 32.9 32.0-36.0 [facility] CenterExpprhaHFXLPYILJZ2149-80-16 18:09:00 Test Item Value Reference Range Interpretation Comments RDW (test code = RDW) 14.1 11.5-14.5 [facility] CenterDbmdtpiCPNVUQZGCC8833-90-22 18:09:00 Test Item Value Reference Range Interpretation Comments Platelet (test code = Platelet) 143 133-450 [facility] CenterGolqwtmOIKMFWKQHW5546-43-01 18:09:00 Test Item Value Reference Range Interpretation Comments MPV (test code = MPV) 8.3 7.4-10.4 [facility] CenterItblfakEGUCMEWQOT0075-10-30 18:09:00 Test Item Value Reference Range Interpretation Comments RBC Morph (test code = Normal (05/07/21 12:09 RBC Morph) PM) [facility] CenterMfzzqkrPXEWSHNAIX4405-22-02 18:09:00 Test Item Value Reference Range Interpretation Comments Plt Morph (test code = Normal (05/07/21 12:09 Plt Morph) PM) [facility] CenterEvyieetRKYRXWIJVO8812-54-14 18:09:00 Test Item Value Reference Range Interpretation Comments Segs (test code = Segs) 73.2 45.0-75.0 [facility] CenterBtvsnidJEBNGNWALF8903-35-57 18:09:00 Test Item Value Reference Range Interpretation Comments Lymphocytes (test code = Lymphocytes) 17.6 20.0-40.0 [facility] CenterXicsyucZAKKDMXEES4938-21-03 18:09:00 Test Item Value Reference Range Interpretation Comments Monocytes (test code = Monocytes) 7.0 2.0-12.0 [place] 861682-01-01 18:09:00 Test Item Value Reference Range Interpretation Comments Eosinophils (test code = 1.6 See_Comment [A utomated message] The Eosinophils) system which ge nerated this result tra nsmitted reference range : <=4.0. The reference r fermín was not used to int erpret this result as normal/abnormal . [facility]FlintGahsxsdZWNESDVAAP4718-95-55 18:09:00 Test Item Value Reference Range Interpretation Comments Basophils (test code = 0.6 See_Comment [Aut omated message] The Basophils) system which ge nerated this result tra nsmitted reference range : <=1.0. The reference r fermín was not used to int erpret this result as normal/abnormal . [facility] SoutheastYawnkrhSLYNMYCPDC7109-35-46 18:09:00 Test Item Value Reference Range Interpretation Comments Neutrophils # (test code = Neutrophils 3.5 1.5-8.1 #) [facility]FlintHzipzreQRUFICMKFG5739-59-29 18:09:00 Test Item Value Reference Range Interpretation Comments Lymphocytes # (test code = Lymphocytes 0.8 1.0-5.5 #) [facility] CenterNtwwsfhTOXZPGEVQA3783-62-77 18:09:00 Test Item Value Reference Range Interpretation Comments Monocytes # (test code 0.3 See_Comment [Aut omated message] The = Monocytes #) system which generated this result tra nsmitted reference range : <=0.8. The reference r fermín was not used to int erpret this result as normal/abnormal . [facility] SoutheastXkvjvexJVUNJXABXE0297-26-32 18:09:00 Test Item Value Reference Range Interpretation Comments Eosinophils # (test code 0.1 See_Comment [A utomated message] The = Eosinophils #) system whic h generated this result tra nsmitted reference range : <=0.5. The reference r fermín was not used to int erpret this result as normal/abnormal . [facility] 18:[facility] Test Item Value Reference Range Interpretation Comments Total CK (test code = Total CK) 143 12-191 [facility] 18:09:00 Test Item Value Reference Range Interpretation Comments HS Troponin I (test code = HS Troponin 22.6 I) [facility] TylerYangarooDVPMM0191-14-00 18:09:00 Test Item Value Reference Range Interpretation Comments Glucose Lvl (test code = Glucose Lvl) 97 70-99 [facility] TylerYangarooWIXTE8015-14-20 18:09:00 Test Item Value Reference Range Interpretation Comments BUN (test code = BUN) 12 7-22 [facility] TylerYangarooPMCKK3046-79-79 18:09:00 Test Item Value Reference Range Interpretation Comments Creatinine Lvl (test code = Creatinine 0.91 0.50-1.40 Lvl) [place] 115182-01-01 18:09:00 Test Item Value Reference Range Interpretation Comments Sodium Lvl (test code = Sodium Lvl) 139 135-145 [place] 115182-01-01 18:09:00 Test Item Value Reference Range Interpretation Comments Potassium Lvl (test code = Potassium 4.2 3.5-5.1 Lvl) [place] 115182-01-01 18:09:00 Test Item Value Reference Range Interpretation Comments Chloride Lvl (test code = Chloride Lvl) 111 95-109 [place] 115182-01-01 18:09:00 Test Item Value Reference Range Interpretation Comments CO2 (test code = CO2) 22 24-32 [place] 115182-01-01 18:09:00 Test Item Value Reference Range Interpretation Comments Calcium Lvl (test code = Calcium Lvl) 9.3 8.5-10.5 [place] 115182-01-01 18:09:00 Test Item Value Reference Range Interpretation Comments AGAP (test code = AGAP) 10.2 10.0-20.0 [place] 115182-01-01 18:09:00 Test Item Value Reference Range Interpretation Comments eGFR (test code = eGFR) 60 [facility] CenterHnkodghIOPXAUCULM4877-82-79 18:09:00 Test Item Value Reference Range Interpretation Comments WBC (test code = WBC) 4.8 3.7-10.4 [place] 861682-01-01 18:09:00 Test Item Value Reference Range Interpretation Comments RBC (test code = RBC) 4.21 4.20-5.40 [place] 861682-01-01 18:09:00 Test Item Value Reference Range Interpretation Comments Hgb (test code = Hgb) 13.0 12.0-16.0 [place] 861682-01-01 18:09:00 Test Item Value Reference Range Interpretation Comments Hct (test code = Hct) 39.5 36.0-48.0 [place] 861682-01-01 18:09:00 Test Item Value Reference Range Interpretation Comments MCV (test code = MCV) 93.9 80.0-98.0 [place] [address]-01-01 18:09:00 Test Item Value Reference Range Interpretation Comments MCH (test code = MCH) 30.9 pg 27.0-31.0 [facility] CenterKxsuqooTPITGVGKBA7923-53-66 18:09:00 Test Item Value Reference Range Interpretation Comments MCHC (test code = MCHC) 32.9 32.0-36.0 [facility] CenterPtzsawuWRUPNYPWWG4481-85-03 18:09:00 Test Item Value Reference Range Interpretation Comments RDW (test code = RDW) 14.1 11.5-14.5 [place] 861682-01-01 18:09:00 Test Item Value Reference Range Interpretation Comments Platelet (test code = Platelet) 143 133-450 [facility] CenterBnmkdpbNIFMGNCHIM3475-70-13 18:09:00 Test Item Value Reference Range Interpretation Comments MPV (test code = MPV) 8.3 7.4-10.4 [facility] CenterYtfnfjtUHZMTGJMFM9917-70-23 18:09:00 Test Item Value Reference Range Interpretation Comments RBC Morph (test code = Normal (05/07/21 12:09 RBC Morph) PM) [facility] CenterOpaeldpEOITHWIVJR3915-05-07 18:09:00 Test Item Value Reference Range Interpretation Comments Plt Morph (test code = Normal (05/07/21 12:09 Plt Morph) PM) [facility] CenterHywozjzFXVESMSAPD3394-79-63 18:09:00 Test Item Value Reference Range Interpretation Comments Segs (test code = Segs) 73.2 45.0-75.0 [facility] CenterGxaggkiNUKYSFNQWD3873-74-08 18:09:00 Test Item Value Reference Range Interpretation Comments Lymphocytes (test code = Lymphocytes) 17.6 20.0-40.0 [facility] CenterQhnlwtsETUCSJQILP3922-90-23 18:09:00 Test Item Value Reference Range Interpretation Comments Monocytes (test code = Monocytes) 7.0 2.0-12.0 [place] 861682-01-01 18:09:00 Test Item Value Reference Range Interpretation Comments Eosinophils (test code = 1.6 See_Comment [A utomated message] The Eosinophils) system which ge nerated this result tra nsmitted reference range : <=4.0. The reference r fermín was not used to int erpret this result as normal/abnormal . [facility] CenterQpxpftiUUJOLYHMRE6740-16-71 18:09:00 Test Item Value Reference Range Interpretation Comments Basophils (test code = 0.6 See_Comment [Aut omated message] The Basophils) system which ge nerated this result tra nsmitted reference range : <=1.0. The reference r fermín was not used to int erpret this result as normal/abnormal . [facility] CenterWoxijbdPUWYITIXXQ0403-86-79 18:09:00 Test Item Value Reference Range Interpretation Comments Neutrophils # (test code = Neutrophils 3.5 1.5-8.1 #) [facility] CenterEiqrvjeXZBJIVWYLG1302-40-22 18:09:00 Test Item Value Reference Range Interpretation Comments Lymphocytes # (test code = Lymphocytes 0.8 1.0-5.5 #) [facility] CenterMyfpjneWOASBGGYML8011-57-45 18:09:00 Test Item Value Reference Range Interpretation Comments Monocytes # (test code 0.3 See_Comment [Aut omated message] The = Monocytes #) system which generated this result tra nsmitted reference range : <=0.8. The reference r fermín was not used to int erpret this result as normal/abnormal . [facility] CenterUuglwviRIQSWPJWPN8373-51-24 18:09:00 Test Item Value Reference Range Interpretation Comments Eosinophils # (test code 0.1 See_Comment [A utomated message] The = Eosinophils #) system whic h generated this result tra nsmitted reference range : <=0.5. The reference r fermín was not used to int erpret this result as normal/abnormal . [facility] CenterNUBSCYV5852-11-47 18:09:00 Test Item Value Reference Range Interpretation Comments Total CK (test code = Total CK) 143 12-191 [facility]Matthew [facility] CenterSZQAJNX1285-23-66 18:09:00 Test Item Value Reference Range Interpretation Comments HS Troponin I (test code = HS Troponin 22.6 I) [facility]Soft[facility] [id number] 18:09:00 Test Item Value Reference Range Interpretation Comments Glucose Lvl (test code = Glucose Lvl) 97 70-99 [facility] GFEYH1342-10-11 18:09:00 Test Item Value Reference Range Interpretation Comments BUN (test code = BUN) 12 7-22 [facility] [id number] 18:09:00 Test Item Value Reference Range Interpretation Comments Creatinine Lvl (test code = Creatinine 0.91 0.50-1.40 Lvl) [facility]2022-01-01 18:09:00 Test Item Value Reference Range Interpretation Comments Sodium Lvl (test code = Sodium Lvl) 139 135-145 [place] 115182-01-01 18:09:00 Test Item Value Reference Range Interpretation Comments Potassium Lvl (test code = Potassium 4.2 3.5-5.1 Lvl) [place] 115182-01-01 18:09:00 Test Item Value Reference Range Interpretation Comments Chloride Lvl (test code = Chloride Lvl) 111 95-109 [place] 115182-01-01 18:09:00 Test Item Value Reference Range Interpretation Comments CO2 (test code = CO2) 22 24-32 [place] 115182-01-01 18:09:00 Test Item Value Reference Range Interpretation Comments Calcium Lvl (test code = Calcium Lvl) 9.3 8.5-10.5 [place] 115182-01-01 18:09:00 Test Item Value Reference Range Interpretation Comments AGAP (test code = AGAP) 10.2 10.0-20.0 [place] 115182-01-01 18:09:00 Test Item Value Reference Range Interpretation Comments eGFR (test code = eGFR) 60 [facility] CenterBzthpwfLFPSHIRRQV7673-02-87 18:09:00 Test Item Value Reference Range Interpretation Comments WBC (test code = WBC) 4.8 3.7-10.4 [place] 861682-01-01 18:09:00 Test Item Value Reference Range Interpretation Comments RBC (test code = RBC) 4.21 4.20-5.40 [place] 861682-01-01 18:09:00 Test Item Value Reference Range Interpretation Comments Hgb (test code = Hgb) 13.0 12.0-16.0 [place] 8[address]-01-01 18:09:00 Test Item Value Reference Range Interpretation Comments Hct (test code = Hct) 39.5 36.0-48.0 [place] 861682-01-01 18:09:00 Test Item Value Reference Range Interpretation Comments MCV (test code = MCV) 93.9 80.0-98.0 [place] [id number] 18:09:00 Test Item Value Reference Range Interpretation Comments MCH (test code = MCH) 30.9 pg 27.0-31.0 [facility]IukubidXPLCECDGWA1725-46-49 18:09:00 Test Item Value Reference Range Interpretation Comments MCHC (test code = MCHC) 32.9 32.0-36.0 [facility] CenterFoyigxkWVAQQOAWKB8604-60-60 18:09:00 Test Item Value Reference Range Interpretation Comments RDW (test code = RDW) 14.1 11.5-14.5 [facility] CenterGtncvbsXRNMVMRBUQ9255-74-41 18:09:00 Test Item Value Reference Range Interpretation Comments Platelet (test code = Platelet) 143 133-450 [facility] CenterVvbfpkwKPYAEHMRNC4388-95-17 18:09:00 Test Item Value Reference Range Interpretation Comments MPV (test code = MPV) 8.3 7.4-10.4 [facility] CenterSirkdxoHHVGLUTINB2220-67-64 18:09:00 Test Item Value Reference Range Interpretation Comments RBC Morph (test code = Normal (05/07/21 12:09 RBC Morph) PM) [facility] CenterBwwqasjLRZNCFZEOS4072-35-24 18:09:00 Test Item Value Reference Range Interpretation Comments Plt Morph (test code = Normal (05/07/21 12:09 Plt Morph) PM) [facility] CenterLudazegUMZHIBWYPM2691-37-10 18:09:00 Test Item Value Reference Range Interpretation Comments Segs (test code = Segs) 73.2 45.0-75.0 [facility] CenterMilkrgdEMVAZYWYDH1226-22-96 18:09:00 Test Item Value Reference Range Interpretation Comments Lymphocytes (test code = Lymphocytes) 17.6 20.0-40.0 [facility] CenterMppkcidRXHCEQFDWC2803-40-99 18:09:00 Test Item Value Reference Range Interpretation Comments Monocytes (test code = Monocytes) 7.0 2.0-12.0 [facility] CenterKvnyvjgJJLKOCOFTR3193-98-42 18:09:00 Test Item Value Reference Range Interpretation Comments Eosinophils (test code = 1.6 See_Comment [A utomated message] The Eosinophils) system which ge nerated this result tra nsmitted reference range : <=4.0. The reference r fermín was not used to int erpret this result as normal/abnormal . [facility] CenterZaljcvyMACXBADVJN9257-14-84 18:09:00 Test Item Value Reference Range Interpretation Comments Basophils (test code = 0.6 See_Comment [Aut omated message] The Basophils) system which ge nerated this result tra nsmitted reference range : <=1.0. The reference r fermín was not used to int erpret this result as normal/abnormal . [facility] TylerBzvyuaaHBCOVAYOIS5631-06-39 18:09:00 Test Item Value Reference Range Interpretation Comments Neutrophils # (test code = Neutrophils 3.5 1.5-8.1 #) [facility]RxhninwHRTORVWXWG9459-22-27 18:09:00 Test Item Value Reference Range Interpretation Comments Lymphocytes # (test code = Lymphocytes 0.8 1.0-5.5 #) [facility] SoutheastUlxxtfvYDVAYZJVJZ1535-01-84 18:09:00 Test Item Value Reference Range Interpretation Comments Monocytes # (test code 0.3 See_Comment [Aut omated message] The = Monocytes #) system which generated this result tra nsmitted reference range : <=0.8. The reference r fermín was not used to int erpret this result as normal/abnormal . [facility] SoutheastLiemfikFRQFCFMKJR6990-32-98 18:09:00 Test Item Value Reference Range Interpretation Comments Eosinophils # (test code 0.1 See_Comment [A utomated message] The = Eosinophils #) system whic h generated this result tra nsmitted reference range : <=0.5. The reference r fermín was not used to int erpret this result as normal/abnormal . [facility] TylerBESOS2022-01-01 18:09:00 Test Item Value Reference Range Interpretation Comments Total CK (test code = Total CK) 143 12-191 [facility] TylerBESOS2022-01-01 18:09:00 Test Item Value Reference Range Interpretation Comments HS Troponin I (test code = HS Troponin 22.6 I) [facility] TylerYangarooWQUEZ2971-13-99 18:09:00 Test Item Value Reference Range Interpretation Comments Glucose Lvl (test code = Glucose Lvl) 97 70-99 [facility] TylerYangarooDNCGE1115-75-65 18:09:00 Test Item Value Reference Range Interpretation Comments BUN (test code = BUN) 12 7-22 [facility] TylerYangarooTKXLL8319-79-01 18:09:00 Test Item Value Reference Range Interpretation Comments Creatinine Lvl (test code = Creatinine 0.91 0.50-1.40 Lvl) [place] 115182-01-01 18:09:00 Test Item Value Reference Range Interpretation Comments Sodium Lvl (test code = Sodium Lvl) 139 135-145 [place] 115182-01-01 18:09:00 Test Item Value Reference Range Interpretation Comments Potassium Lvl (test code = Potassium 4.2 3.5-5.1 Lvl) [place] 115182-01-01 18:09:00 Test Item Value Reference Range Interpretation Comments Chloride Lvl (test code = Chloride Lvl) 111 95-109 [place] 115182-01-01 18:09:00 Test Item Value Reference Range Interpretation Comments CO2 (test code = CO2) 22 24-32 [place] 115182-01-01 18:09:00 Test Item Value Reference Range Interpretation Comments Calcium Lvl (test code = Calcium Lvl) 9.3 8.5-10.5 [place] 115182-01-01 18:09:00 Test Item Value Reference Range Interpretation Comments AGAP (test code = AGAP) 10.2 10.0-20.0 [place] 115182-01-01 18:09:00 Test Item Value Reference Range Interpretation Comments eGFR (test code = eGFR) 60 [place] 861682-01-01 18:09:00 Test Item Value Reference Range Interpretation Comments WBC (test code = WBC) 4.8 3.7-10.4 [place] 861682-01-01 18:09:00 Test Item Value Reference Range Interpretation Comments RBC (test code = RBC) 4.21 4.20-5.40 [place] 861682-01-01 18:09:00 Test Item Value Reference Range Interpretation Comments Hgb (test code = Hgb) 13.0 12.0-16.0 [place] 8[address]-01-01 18:09:00 Test Item Value Reference Range Interpretation Comments Hct (test code = Hct) 39.5 36.0-48.0 [place] 861682-01-01 18:09:00 Test Item Value Reference Range Interpretation Comments MCV (test code = MCV) 93.9 80.0-98.0 [place] 861682-01-01 18:09:00 Test Item Value Reference Range Interpretation Comments MCH (test code = MCH) 30.9 pg 27.0-31.0 [facility] CenterCjghstvZUASYIOWZO6237-31-18 18:09:00 Test Item Value Reference Range Interpretation Comments MCHC (test code = MCHC) 32.9 32.0-36.0 [facility] CenterOkefrcuBGKCHATRVM2242-57-67 18:09:00 Test Item Value Reference Range Interpretation Comments RDW (test code = RDW) 14.1 11.5-14.5 [facility] CenterIbzszplZSGXRSWLZW2301-54-54 18:09:00 Test Item Value Reference Range Interpretation Comments Platelet (test code = Platelet) 143 133-450 [facility] CenterQyzspolWAPWJCJZFU2348-38-73 18:09:00 Test Item Value Reference Range Interpretation Comments MPV (test code = MPV) 8.3 7.4-10.4 [facility] CenterGqtwkdbMLOJITRVFN2971-20-97 18:09:00 Test Item Value Reference Range Interpretation Comments RBC Morph (test code = Normal (05/07/21 12:09 RBC Morph) PM) [facility] CenterEshrcmdABZKSYQSSB1238-18-74 18:09:00 Test Item Value Reference Range Interpretation Comments Plt Morph (test code = Normal (05/07/21 12:09 Plt Morph) PM) [facility] CenterBmhfijyAACELGASEZ7863-34-05 18:09:00 Test Item Value Reference Range Interpretation Comments Segs (test code = Segs) 73.2 45.0-75.0 [facility] CenterImhxoxiFUQZANEFEJ3914-97-16 18:09:00 Test Item Value Reference Range Interpretation Comments Lymphocytes (test code = Lymphocytes) 17.6 20.0-40.0 [facility] CenterSzttqskUIJMBVODTB1737-27-20 18:09:00 Test Item Value Reference Range Interpretation Comments Monocytes (test code = Monocytes) 7.0 2.0-12.0 [place] 861682-01-01 18:09:00 Test Item Value Reference Range Interpretation Comments Eosinophils (test code = 1.6 See_Comment [A utomated message] The Eosinophils) system which ge nerated this result tra nsmitted reference range : <=4.0. The reference r fermín was not used to int erpret this result as normal/abnormal . [facility] CenterJbchldhDGODJHGBSS6294-70-32 18:09:00 Test Item Value Reference Range Interpretation Comments Basophils (test code = 0.6 See_Comment [Aut omated message] The Basophils) system which ge nerated this result tra nsmitted reference range : <=1.0. The reference r fermín was not used to int erpret this result as normal/abnormal . [facility] CenterJwumdchQTLGKTHCYN9777-27-48 18:09:00 Test Item Value Reference Range Interpretation Comments Neutrophils # (test code = Neutrophils 3.5 1.5-8.1 #) [facility] CenterOjkkstsWLUJIGGDRE0963-48-80 18:09:00 Test Item Value Reference Range Interpretation Comments Lymphocytes # (test code = Lymphocytes 0.8 1.0-5.5 #) [facility] CenterHaazrnzYPFQWBDLUE0290-21-87 18:09:00 Test Item Value Reference Range Interpretation Comments Monocytes # (test code 0.3 See_Comment [Aut omated message] The = Monocytes #) system which generated this result tra nsmitted reference range : <=0.8. The reference r fermín was not used to int erpret this result as normal/abnormal . [facility] CenterFiefanuAUSRNMJLHX9342-76-64 18:09:00 Test Item Value Reference Range Interpretation Comments Eosinophils # (test code 0.1 See_Comment [A utomated message] The = Eosinophils #) system whic h generated this result tra nsmitted reference range : <=0.5. The reference r fermín was not used to int erpret this result as normal/abnormal . [facility] CenterRCILOGN0174-48-70 18:09:00 Test Item Value Reference Range Interpretation Comments Total CK (test code = Total CK) 143 12-191 [facility]BESOS20[facility] 18:09:00 Test Item Value Reference Range Interpretation Comments HS Troponin I (test code = HS Troponin 22.6 I) [facility] TylerYangarooMHMVQ2548-06-93 18:09:00 Test Item Value Reference Range Interpretation Comments Glucose Lvl (test code = Glucose Lvl) 97 70-99 [facility] TylerSBA Bank Loans LYHHS8478-73-09 18:09:00 Test Item Value Reference Range Interpretation Comments BUN (test code = BUN) 12 7-22 [facility] SoutheastSoftoCoupon [id number] 18:09:00 Test Item Value Reference Range Interpretation Comments Creatinine Lvl (test code = Creatinine 0.91 0.50-1.40 Lvl) [facility] SoutheastOrbit Minder LimitedIIBXB3808-45-12 18:09:00 Test Item Value Reference Range Interpretation Comments Sodium Lvl (test code = Sodium Lvl) 139 135-145 [place] 115182-01-01 18:09:00 Test Item Value Reference Range Interpretation Comments Potassium Lvl (test code = Potassium 4.2 3.5-5.1 Lvl) [facility]2022-01-01 18:09:00 Test Item Value Reference Range Interpretation Comments Chloride Lvl (test code = Chloride Lvl) 111 95-109 [facility]2022-01-01 18:09:00 Test Item Value Reference Range Interpretation Comments CO2 (test code = CO2) 22 24-32 [place] 115182-01-01 18:09:00 Test Item Value Reference Range Interpretation Comments Calcium Lvl (test code = Calcium Lvl) 9.3 8.5-10.5 [place] 115182-01-01 18:09:00 Test Item Value Reference Range Interpretation Comments AGAP (test code = AGAP) 10.2 10.0-20.0 [place] 115182-01-01 18:09:00 Test Item Value Reference Range Interpretation Comments eGFR (test code = eGFR) 60 [facility] CenterHzkjsqtBYOHPVXLZP9355-45-24 18:09:00 Test Item Value Reference Range Interpretation Comments WBC (test code = WBC) 4.8 3.7-10.4 [place] 861682-01-01 18:09:00 Test Item Value Reference Range Interpretation Comments RBC (test code = RBC) 4.21 4.20-5.40 [place] 861682-01-01 18:09:00 Test Item Value Reference Range Interpretation Comments Hgb (test code = Hgb) 13.0 12.0-16.0 [place] [address]-01-01 18:09:00 Test Item Value Reference Range Interpretation Comments Hct (test code = Hct) 39.5 36.0-48.0 [place] [address]-01-01 18:09:00 Test Item Value Reference Range Interpretation Comments MCV (test code = MCV) 93.9 80.0-98.0 [place] [address]-01-01 18:09:00 Test Item Value Reference Range Interpretation Comments MCH (test code = MCH) 30.9 pg 27.0-31.0 [facility] CenterVhuttsoCPHHMFWFRU9311-79-35 18:09:00 Test Item Value Reference Range Interpretation Comments MCHC (test code = MCHC) 32.9 32.0-36.0 [facility] CenterTvkqodyNMGNAWVKZB9548-86-72 18:09:00 Test Item Value Reference Range Interpretation Comments RDW (test code = RDW) 14.1 11.5-14.5 [facility] CenterBqoftpcOCTRKWZSLA8631-71-05 18:09:00 Test Item Value Reference Range Interpretation Comments Platelet (test code = Platelet) 143 133-450 [facility] CenterJzxceojZSQQIBSXMD8365-33-96 18:09:00 Test Item Value Reference Range Interpretation Comments MPV (test code = MPV) 8.3 7.4-10.4 [facility] CenterDlojzoxTDCBCXMSKY4090-94-86 18:09:00 Test Item Value Reference Range Interpretation Comments RBC Morph (test code = Normal (05/07/21 12:09 RBC Morph) PM) [facility] CenterWktsptwAMQWJOZTYO6277-05-69 18:09:00 Test Item Value Reference Range Interpretation Comments Plt Morph (test code = Normal (05/07/21 12:09 Plt Morph) PM) [facility] CenterQvdxjmnPBYSFZNMXT3704-48-26 18:09:00 Test Item Value Reference Range Interpretation Comments Segs (test code = Segs) 73.2 45.0-75.0 [facility] CenterZqwqltqQVBJCLMIBU3437-41-09 18:09:00 Test Item Value Reference Range Interpretation Comments Lymphocytes (test code = Lymphocytes) 17.6 20.0-40.0 [facility] CenterIvdjaufDJKBUKEGSJ9464-18-62 18:09:00 Test Item Value Reference Range Interpretation Comments Monocytes (test code = Monocytes) 7.0 2.0-12.0 [facility] CenterEhwbwmhYEFGZNWCXR9518-39-17 18:09:00 Test Item Value Reference Range Interpretation Comments Eosinophils (test code = Eosinophils) 1.6 <=4.0 [facility] CenterOjouhhdEGFCGPWBNN6665-68-56 18:09:00 Test Item Value Reference Range Interpretation Comments Basophils (test code = Basophils) 0.6 <=1.0 [facility] CenterLrdobizMDYXDDNQXA5063-06-93 18:09:00 Test Item Value Reference Range Interpretation Comments Neutrophils # (test code = Neutrophils 3.5 1.5-8.1 #) [facility] CenterSktnoarFWQIKKTOKG3248-37-08 18:09:00 Test Item Value Reference Range Interpretation Comments Lymphocytes # (test code = Lymphocytes 0.8 1.0-5.5 #) [facility] CenterWiajumqAPPPMCHRPT0770-08-13 18:09:00 Test Item Value Reference Range Interpretation Comments Monocytes # (test code = Monocytes #) 0.3 <=0.8 [facility] CenterDikuuqmOGSWHHRHOM2871-62-67 18:09:00 Test Item Value Reference Range Interpretation Comments Eosinophils # (test code = Eosinophils 0.1 <=0.5 #) [facility], DIGITAL, MAMMO, SCREENING, BILATERAL INCLUDING [id number] 16:10:00Diagnostic workup per radiologist?->YesReason for Exam:->screen #[id number] - MM, DIGITAL, MAMMO, SCREENING, BILATERAL INCLUDING CADBILATERAL DIGITAL SCREENING MAMMOGRAM WITH CAD: 01/16/2019Comparison is made to exams dated: 08/27/2017 mammogram and 07/10/2016 mammogram - [facility]. The tissue of both breasts [...] 1 year screening mammogram is recommended. Hue Ambrosio M.D. /penrad:01/16/2019 16:10:01 Normal Exam Mammogram BI-RADS: 2 Benign G0202 RAD, BONE DENSITY [id number] 14:21:00 Reason for Exam:->osteoporosisFINAL REPORT Bone Mineral Density Date: August 27, 2017 Comparison: No comparison Clinical History: Osteoporosis Screening Report: Bone Mineral Density Measurement: Lumbar Spine: 1.227 gm/oe2Qtzf Femoral Neck: 0.773 gm/cm2 Standard Deviation as [...] MDReport Verified Date/Time: 08/27/2017 14:21:55 Reading Location: [address] Radiology Reading Room MM, DIGITAL, MAMMO, SCREENING, BILATERAL INCLUDING [id number] 13:55:00Reason for Exam:- >screening for breast cancerN#: [id number] - MM, DIGITAL, MAMMO, SCREENING, BILATERAL INCLUDING CADBILATERAL DIGITAL SCREENING MAMMOGRAM WITH CAD: 08/27/2017CLINICAL: Routine screening mammogram. Comparison is made to exams dated: 07/10/2016 mammogram - [facility], 04/12/2015 mammogram, 02/18/2014 mammogram, and 12/29/2008 mammogram. [...]
--- NOTE | 2023-02-11 05:29 | ER ---
Nurse's Notes [facility] Name: Yuly Villegas Age: 82 yrs Sex: Female : 1940 Arrival Date: 02/11/2023 Time: 03:35 Bed 6 Private MD: Diagnosis: Shortness of breath;Abnormal findings on diagnostic imaging of other specified body structures Presentation: 02/11 03:38 Chief complaint: Patient states: WOKE UP FEELING SOB. DIDN'T KNOW IF IT WAS HER ASTHMA jj7 OR SLEEP APNEA. STATES HER LAST SUNDAY AND THEY BURIED HIM ON SUN. SHE IS FEELING FINE RIGHT NOW EMS states: CALLED BECAUSE THE PT WAS HAVING DIFFICULTY BREATHING AND GASPING FOR AIR. Coronavirus screen: Vaccine status: Patient reports receiving the 2nd dose of the covid vaccine. At this time, the client does not indicate any symptoms associated with coronavirus-19. Ebola Screen: No symptoms or risks identified at this time. Initial Sepsis Screen: Does the patient meet any 2 criteria? No. Patient's initial sepsis screen is negative. Does the patient have a suspected source of infection? No. Patient's initial sepsis screen is negative. Risk Assessment: Do you want to hurt yourself or someone else? Patient reports no desire to harm self or others. Onset of symptoms was February 11, 2023. 03:38 Method Of Arrival: EMS: [facility] jj7 03:38 Acuity: LEOPOLDO 4 jj7 Triage Assessment: 03:38 General: Appears in no apparent distress. comfortable, Behavior is calm, cooperative, jj7 appropriate for age. Pain: Denies pain. Respiratory: No deficits noted. Historical: - Allergies: 03:51 Codeine; jj7 03:51 Ibuprofen; jj7 - PMHx: 03:51 Atrial fibrillation; Cerebrovascular accident; depressive disorder; DYSPHAGIA; gastric jj7 ulcer; Gastroesophageal reflux disease; Hyperlipidemia; Hypertensive disorder; Hypothyroidism; stroke; - PSHx: 03:54 Total abdominal hysterectomy; Repair of inguinal hernia; jj7 - Immunization history:: Adult Immunizations up to date, Client reports receiving the 2nd dose of the Covid vaccine. - Social history:: Smoking status: Patient denies any tobacco usage or history of. Patient/guardian denies using alcohol, street drugs. Screenin:59 [facility] ED Fall Risk Assessment (Adult) History of falling in the last 3 months, jj7 including since admission No falls in past 3 months (0 pts) Confusion or Disorientation No (0 pts) Intoxicated or Sedated No (0 pts) Impaired Gait Yes (1 pt) Mobility Assist Device Used Yes (1 pt) Altered Elimination No (0 pt) Score/Fall Risk Level 0 - 2 = Low Risk Oriented to surroundings, Maintained a safe environment, Educated pt \T\ family on fall prevention, incl call for assistance when getting out of bed. Abuse screen: Denies threats or abuse. Nutritional screening: No deficits noted. Tuberculosis screening: No symptoms or risk factors identified. Assessment: 03:59 Reassessment: SEE TRIAGE ASSESSMENT. jj7 Vital Signs: 03:38 BP 111 / 69; Pulse 73; Resp 17; Temp 98.1; Pulse Ox 100% on R/A; Weight 56.25 kg; jj7 Height 5 ft. 3 in. ; Pain 0/10; 05:00 BP 97 / 52; Pulse 64; Resp 16; Pulse Ox 100% ; Pain 0/10; jj7 05:55 BP 102 / 64; Pulse 61; Resp 17; Pulse Ox 100% ; jj7 03:38 Body Mass Index 21.97 (56.25 kg, 160.02 cm) jj7 03:38 Pain Scale: Adult jj7 05:00 Pain Scale: Adult jj7 ED Course: 03:37 Patient arrived in ED. as6 03:37 Zachary Ac RN is Primary Nurse. jj7 03:38 Kylee Martinez MD is Attending Physician. sd2 03:38 Arm band placed on right wrist. Patient placed in an exam room, on a stretcher. jj7 03:51 Triage completed. jj7 03:59 Patient has correct armband on for positive identification. Bed in low position. Call jj7 light in reach. Side rails up X2. Adult w/ patient. 03:59 No provider procedures requiring assistance completed. jj7 04:40 XRAY Chest (1 view) In Process Unspecified. EDMS 05:30 Provided Education on: DISCHARGE INSTRUCTIONS. jj7 05:30 Patient did not have IV access during this emergency room visit. jj7 Administered Medications: 05:46 Drug: Rocephin (cefTRIAXone) IM 1 grams IM once Route: IM; Site: right gluteus; jj7 05:57 Follow up: Response: No adverse reaction jj7 Medication: 03:59 VIS not applicable for this client. jj7 Outcome: 05:28 Discharge ordered by . [email or web address] 06:06 Discharged to [facility] jj7 06:06 Discharged to 06:06 Condition: good 06:06 Discharge instructions given to patient, family, Instructed on discharge instructions, follow up and referral plans. medication usage, Demonstrated understanding of instructions, follow-up care, medications, Prescriptions given X 2, 06:07 Patient left the ED. as6 Signatures: Dispatcher [employer] EDMS Jordon Ross RN RN as6 Kylee Martinez MD MD sd2 Zachary Ac RN RN jj7 Corrections: (The following items were deleted from the chart) 05:30 03:59 [facility] ED Fall Risk Assessment (Adult) History of falling in the last 3 months, jj7 including since admission No falls in past 3 months (0 pts) Confusion or Disorientation No (0 pts) Intoxicated or Sedated No (0 pts) Impaired Gait No (0 pts) Mobility Assist Device Used No (0 pt) Altered Elimination No (0 pt) Score/Fall Risk Level 0 - 2 = Low Risk Oriented to surroundings, Maintained a safe environment, Educated pt \T\ family on fall prevention, incl call for assistance when getting out of bed, jj7
--- NOTE | 2023-02-11 05:29 | EDPHYS ---
Physician Documentation [facility] Name: Yuly Villegas Age: 82 yrs Sex: Female : 1940 Arrival Date: 02/11/2023 Time: 03:35 Bed 6 Private MD: ED Physician Kylee Martinez HPI: 02/11 03:53 This 82 yrs old Female presents to ER via EMS with complaints of SOB. sd2 03:53 82 yo F presents via EMS with CC of SOB. Reports she woke up tonight "gasping for air" sd2 and couldn't "catch my breath." Reports she lives at [facility] and pressed her button for help. O2 sats with EMS were normal without hypoxia and now all symptoms have resolved. She denies any associated fever, n/v/d or CP. Reports having similar symptoms previously with her asthma and that they have not refilled her rescue albuterol inhaler which she would normally use to help in these instances. Reports she is also on Breo but they have been out of it at her facility for the last 5-6 days. . Historical: - Allergies: 03:51 Codeine; jj7 03:51 Ibuprofen; jj7 - PMHx: 03:51 Atrial fibrillation; Cerebrovascular accident; depressive disorder; DYSPHAGIA; gastric jj7 ulcer; Gastroesophageal reflux disease; Hyperlipidemia; Hypertensive disorder; Hypothyroidism; stroke; - PSHx: 03:54 Total abdominal hysterectomy; Repair of inguinal hernia; jj7 - Immunization history:: Adult Immunizations up to date, Client reports receiving the 2nd dose of the Covid vaccine. - Social history:: Smoking status: Patient denies any tobacco usage or history of. Patient/guardian denies using alcohol, street drugs. ROS: 03:53 Constitutional: Negative for fever, chills, and weight loss, Eyes: Negative for injury, sd2 pain, redness, and discharge, Cardiovascular: Negative for chest pain, palpitations, and edema, Respiratory: Positive for shortness of breath, Negative for cough, wheezing. Abdomen/GI: Negative for abdominal pain, nausea, vomiting, diarrhea. MS/Extremity: Negative for injury and deformity, Skin: Negative for injury, rash, and discoloration, Neuro: Negative for headache, numbness and tingling. Exam: 03:53 Constitutional: This is a well developed, well nourished patient who is awake, alert, sd2 and in no acute distress. Head/Face: Normocephalic, atraumatic. Eyes: EOMI, normal conjunctiva bilaterally Chest/axilla: Normal chest wall appearance and motion. Nontender with no deformity. Cardiovascular: Regular rate and rhythm with a normal S1 and S2. No gallops, murmurs, or rubs. 2+ distal pulses. Respiratory: Lungs have equal breath sounds bilaterally, clear to auscultation and percussion. No rales, rhonchi or wheezes noted. No increased work of breathing, no retractions or nasal flaring. Abdomen/GI: Soft, non-tender, with normal bowel sounds. No guarding or rebound. No evidence of tenderness throughout. Skin: Warm, dry with normal turgor. Normal color with no rashes, no lesions, and no evidence of cellulitis. MS/ Extremity: Pulses equal, no cyanosis. Neurovascular intact. Full, normal range of motion. Ambulatory without difficulty. Psych: Awake, alert, with orientation to person, place and time. Behavior, mood, and affect are within normal limits. 04:00 ECG was reviewed by the Attending Physician. NSR, rate 64, no STEMI criteria sd2 Vital Signs: 03:38 BP 111 / 69; Pulse 73; Resp 17; Temp 98.1; Pulse Ox 100% on R/A; Weight 56.25 kg; jj7 Height 5 ft. 3 in. ; Pain 0/10; 05:00 BP 97 / 52; Pulse 64; Resp 16; Pulse Ox 100% ; Pain 0/10; jj7 05:55 BP 102 / 64; Pulse 61; Resp 17; Pulse Ox 100% ; jj7 03:38 Body Mass Index 21.97 (56.25 kg, 160.02 cm) [facility] 03:38 Pain Scale: Adult jj7 05:00 Pain Scale: Adult jj7 MDM: 03:38 Patient medically screened. sd2 03:53 Differential Diagnosis Differential diagnosis includes but is not limited to: ACS, sd2 DVT/PE, pneumothorax, dissection, musculoskeletal, anxiety, anemia, electrolyte abnormality, pneumonia, CHF, COPD among others. Data reviewed: vital signs, nurses notes, EMS record, EKG, radiologic studies, plain films. Test considered but Not performed: Labs: pt declined. 05:24 Care significantly affected by the following chronic conditions: Hypertension, A-fib. sd2 Counseling: I had a detailed discussion with the patient and/or guardian regarding the historical points, exam findings, and any diagnostic results supporting the discharge/admit diagnosis, radiology results, the need for outpatient follow up, to return to the emergency department if symptoms worsen or persist or if there are any questions or concerns that arise at home. ED course: Pt remains with no further episodes of difficulty breathing and is asymptomatic. EKG with no acute changes. CXR with patchy opacity and possible interstitial edema. Pt with no infectious symptoms. Was never hypoxic with EMS or at our facility. Discussed options of proceeding with labs vs placing patient on abx with outpatient follow up with PCP and strict return precautions. Pt continues to choose to forego labs at this time and would like to trial abx first. She is comfortable with plan for discharge and outpatient follow up and verbalizes understanding of discharge plan and strict return precautions.. 02/11 03:49 Order name: XRAY Chest (1 view) sd2 02/11 03:49 Order name: EKG - Nurse/Tech; Complete Time: 03:59 sd2 Administered Medications: 05:46 Drug: Rocephin (cefTRIAXone) IM 1 grams IM once Route: IM; Site: right gluteus; jj7 05:57 Follow up: Response: No adverse reaction jj7 Disposition Summary: 02/11/23 05:28 Discharge Ordered Problem: new sd2 Symptoms: are resolved sd2 Condition: Stable sd2 Diagnosis - Shortness of breath sd2 - Abnormal findings on diagnostic imaging of other specified body structures sd2 Followup: sd2 - With: Private Physician - When: 2 - 3 days - Reason: Recheck today's complaints, Continuance of care, Re-evaluation by your physician Discharge Instructions: - Discharge Summary Sheet sd2 - Community-Acquired Pneumonia, Adult sd2 - Shortness of Breath, Adult sd2 Forms: - Medication Reconciliation Form sd2 - Thank You Letter sd2 - Antibiotic Education sd2 - Prescription Opioid Use sd2 - Patient Portal Instructions sd2 - Leadership Thank You Letter sd2 Prescriptions: - albuterol sulfate 90 mcg/actuation Inhalation Aerosol Powder, Breath Activated - administer 2 inhalation INHALATION route every 4-6 hours As needed; 1 unit; sd2 Refills: 0, Product Selection Permitted - Doxycycline Hyclate 100 mg Oral Tablet - take 1 tablet ORAL route every 12 hours; 20 tablet; Refills: 0, Product sd2 Selection Permitted Signatures: Dispatcher [employer] Kylee Cabrera MD MD sd2 Zachary Ac RN RN jj7
[2023-02-11] MEDS ORDERED: CEFTRIAXONE 1000 MG/VIAL ONE (05:54)
[2023-02-11] MEDS ORDERED: LIDOCAINE 2% MPF 5 ML VIAL ONE (05:54)
[2023-02-11 06:25] VITALS: TEMP 98.1; O2SAT 100
[2023-02-11 06:28] VITALS: BP 102/64
--- NOTE | 2023-02-12 10:16 | RAD REPORT ---
EXAM DESCRIPTION: RAD - Chest Single View - 02/11/2023 4:39 am CLINICAL HISTORY: The patient is 82 years old and is Female; SOB TECHNIQUE: Frontal view of the chest. COMPARISON: No relevant prior studies available. FINDINGS: Lungs: Prominent interstitial markings suggestive of interstitial edema. Patchy opacity in the left lung base. Pleural space: Unremarkable. No pneumothorax. Heart: Unremarkable. Mediastinum: Unremarkable. Bones/joints: No acute findings. IMPRESSION: 1. Prominent interstitial markings suggestive of interstitial edema. 2. Patchy opacity in the left lung base. Electronically signed by: Dharmesh Mcnamara MD 02/11/2023 4:50 AM CDT Due to temporary technical issues with the PACS/Fluency reporting system, reports are being signed by the in house radiologist without review as a courtesy to ensure prompt reporting. The interpreting r adiologist is fully responsible for the content of the report.
--- NOTE | 2023-02-12 12:18 | EKG ---
Test Date: 2023-02-11 Test Time: 03:58:26 Consulting Marine Engineer: RV MEASUREMENT RESULTS: Intervals: Rate: 64 IA: 170 QRSD: 82 QT: 442 QTc: 455 [place]: P: 31 IA: 170 QRS: -1 T: 22 INTERPRETIVE STATEMENTS: Normal sinus rhythm Low voltage QRS Inferior infarct, age undetermined Abnormal ECG Compared to ECG 07/19/2022 15:58:26 No significant changes Electronically Signed On 02-12-23 12:15:07 CDT by Curly Mcdonald
== END 2023-02-11 06:07 | disposition home or self-care (01) ==
LOC: ER 03:35
DX: R06.02 Shortness of breath (principal); R93.89 Abnormal findings on diagnostic imaging of other specified body structures; I10 Essential (primary) hypertension; I48.91 Unspecified atrial fibrillation; Z88.5 Allergy status to narcotic agent; Z88.6 Allergy status to analgesic agent
CPT/HCPCS: 93005; 71045; 96372; 99284; J2001; J0696

== ENCOUNTER → 2023-05-21 | Emergency (ER) | payer OTHER, BC ==
--- OUTSIDE RECORDS SUMMARY | 2023-05-21 19:56 | XMS REPORT | Clinical Summary ---
Author Name Unknown Organization [facility] Address [address] [place] [address] Care Team Providers Care Ruby Engineer Name Role Phone Unavailable Primary Care Provider Unavailabl e Immunizations Name Administration Dates Next Due Pfizer SARS-CoV-2 Vaccination (Purple Cap) 07/04,06/13/2020 Social History Tobacco Use Types Packs/Day Years Used Date Smoking Tobacco: Never Assessed Sex and Gender Information Value Date Recorded Sex Assigned at Not on file Gender Identity Not on file Sexual Orientation Not on file Plan of Treatment Health Maintenance Due Date Last Done Comments COVID-19 Vaccination ( season) 2023 07/04/2020, 06/13/2020 Yuly Villegas Personal/Family Self 1940 [facility] [place] [address]
[2023-05-21 20:34] LABS: Absolute Lymphocytes (CBC) 1.2 K/uL (0.7-4.9); Hematocrit 35.2 % (36.0-45.0); Lymphocytes % 21.9 % (15.3-44.8); MCV 92.7 fL (80-100); MPV 8.4 fL (7.6-11.3); Platelets 205 thou/uL (152-406)
[2023-05-21 20:52] LABS: Troponin High Sensitivity 10.5 pg/mL (<58.9)
--- NOTE | 2023-05-21 21:03 | RAD REPORT ---
EXAM DESCRIPTION: RAD - Chest Single View - 05/21/2023 8:44 pm CLINICAL HISTORY: eval for pna Chest pain. COMPARISON: <Comparisons> FINDINGS: Portable technique limits examination quality. The lungs are grossly clear. The heart is normal in size. No displaced fractures.Axial hiatal hernia. IMPRESSION: No acute intrathoracic process suspected. Hiatal hernia.
--- NOTE | 2023-05-21 21:48 | RAD REPORT ---
EXAM DESCRIPTION: CT - Head Brain Wo Cont - 05/21/2023 9:37 pm CLINICAL HISTORY: MENTAL STATUS CHANGE Headache, drowsiness COMPARISON: <Comparisons> TECHNIQUE: All CT scans are performed using dose optimization technique as appropriate and may inclu de automated exposure control or mA/KV adjustment according to patient size. FINDINGS: No intracranial hemorrhage, hydrocephalus or extra-axial fluid collection.Mild generalized brain atrophy is present with mild periventricular and deep white matter chronic microvascular ische ezra changes.No areas of brain edema or evidence of midline shift. The paranasal sinuses and mastoids are clear. The calvarium is intact. IMPRESSION: No acute intracranial abnormality.
--- NOTE | 2023-05-21 21:49 | RAD REPORT ---
EXAM DESCRIPTION: CT - Head angio - 05/21/2023 9:37 pm CLINICAL HISTORY: MENTAL STATUS CHANGE Headache, drowsiness COMPARISON: <Comparisons> TECHNIQUE: CT angiography of the head was performed with MIPs. All CT scans are performed using dose optimization technique as appropriate and may include automated exposure control or mA/KV adjustment according to patient size. FINDINGS: No evidence of large vessel occlusion. No evidence of aneurysm is detected. No flow-limiti ng stenosis or vascular malformation identified. Antegrade flow is seen in the vertebral arteries. The left vertebral artery is dominant The visualized dural venous sinuses are patent. IMPRESSION: No significant flow abnormality is detected.
--- NOTE | 2023-05-21 21:56 | RAD REPORT ---
EXAM DESCRIPTION: CT - Neck Angio - 05/21/2023 9:37 pm CLINICAL HISTORY: ams Headache, drowsiness, neck pain COMPARISON: <Comparisons> TECHNIQUE: CT angiography of the neck vessels was performed with MIPs. All CT scans are performed using dose optimization technique as appropriate and may include automated exposure control or mA/KV adjustment according to patient size. FINDINGS: A left aortic arch is identified with normal three vessel configuration of the great vesse ls. No significant flow abnormality is seen of the common carotid bilaterally. No significant left-sided carotid stenosis. Moderate hard plaque is present right carotid bulb result ing 50-60% stenosis based on NASCET criteria. Normal flow is seen within both vertebral arteries. IMPRESSION: Moderate hard plaque right carotid bulb resulting in 50-60% stenosis based on NASCET cri teria. NASCET criteria used. Mild 0-49% stenosis Moderate 50-69% stenosis Severe 70-99% stenosis
[2023-05-21 22:55] LABS: Urine Bacteria None Seen /HPF (<20); Urine Bilirubin NEGATIVE (Negative); Urine Blood Negative (Negative); Urine Clarity Clear (Clear); Urine Color Light-Yellow (Yellow); Urine Glucose NEGATIVE (Negative); Urine Mucus 2+ /HPF (None Seen); Urine Protein TRACE (Negative); Urine Urobilinogen Normal (Normal); Urine pH 5.5 (5.0-7.0)
[2023-05-21 22:58] LABS: Specific Gravity > 1.030 (1.005-1.030)
--- NOTE | 2023-05-21 23:08 | EDPHYS ---
Physician Documentation [facility] Name: Yuly Villegas Age: 82 yrs Sex: Female : 1940 Arrival Date: 05/21/2023 Time: 19:53 Bed 3 Private MD: ED Physician Westley Calderon HPI: 05/21 20:20 This 82 yrs old Female presents to ER via EMS with complaints of Altered ec2 Mental Status. 20:20 Patient arrives today for evaluation of transient altered mental status. Reportedly ec2 patient was calling for assistance and staff cannot understand what she was saying. This had resolved shortly after. History of previous TIA. No falls or injuries, patient denies any pain anywhere.. Historical: - Allergies: 21:49 Codeine; tl4 21:49 Ibuprofen; tl4 - Home Meds: 21:49 acetaminophen 325 mg oral tablet 2 tab Every 8 hours as needed [Active]; atorvastatin tl4 40 mg oral tablet 1 tab every day at bedtime [Active]; Eliquis 5 mg Oral tab 1 tab 2 times per day [Active]; albuterol sulfate 90 mcg/actuation inhalation HFA Aerosol Inhaler 2 puffs every 4 hours [Active]; Breo Ellipta 100-25 mcg/dose inhalation Blister, With Inhalation Device 1 inhalation daily [Active]; cetirizine 10 mg oral tablet 1 tab daily [Active]; dexlansoprazole 60 mg Oral CpDB 1 cap daily [Active]; glycopyrrolate 1 mg Oral tab 1 tab 2 times per day [Active]; levothyroxine 137 mcg oral tablet 1 tab daily [Active]; metoprolol succinate 50 mg oral Tablet, Extended Release 24 hr 1 tab daily [Active]; Lubricating Plus 0.5 % ophthalmic (eye) Dropperette 1 drop twice a day [Active]; Oyster Shell Calcium 500 500 mg calcium (1,250 mg) oral tablet 1 tab 2 times per day [Active]; promethazine 25 mg Oral tab 1 tab every 8 hours [Active]; sertraline 100 mg Oral tab 1 tabs twice a day [Active]; - PMHx: 21:49 Atrial fibrillation; Cerebrovascular accident; depressive disorder; DYSPHAGIA; gastric tl4 ulcer; Gastroesophageal reflux disease; Hyperlipidemia; Hypertensive disorder; Hypothyroidism; stroke; Pneumonia; Asthma; - PSHx: 21:49 Repair of inguinal hernia; Total abdominal hysterectomy; tl4 - Immunization history:: Adult Immunizations unknown. - Social history:: Smoking status: Patient denies any tobacco usage or history of. ROS: 20:21 Constitutional: as per hpi ec2 Exam: 20:21 Constitutional: GEN: NAD Head: atraumatic Eyes: EOMI Ears: External ears are ec2 normal. CV: regular rate LUNGS: no respiratory distress ABD: non-distended, soft, nontender, no guarding, not rigid SKIN: no evidence of rashes MSK: no evidence of trauma NEURO: moves all extremities equally, intact cranial nerves, no focal deficits appreciated Vital Signs: 20:00 BP 103 / 66; Pulse 87; Resp 15; Temp 98.7(O); Pulse Ox 100% on R/A; Weight 54.88 kg tl4 (M); Height 5 ft. 3 in. ; Pain 0/10; 20:00 BP 120 / 65; Pulse 82; Resp 19; Pulse Ox 100% on R/A; Pain 0/10; tl4 21:00 BP 105 / 60; Pulse 82; Resp 19; Pulse Ox 100% on R/A; tl4 22:00 BP 114 / 52; Pulse 82; Resp 20; Pulse Ox 100% on R/A; tl4 23:26 BP 108 / 54; Pulse 71; Resp 17; Temp 98; Pulse Ox 99% ; rv 20:00 Body Mass Index 21.43 (54.88 kg, 160.02 cm) tl4 20:00 Pain Scale: Adult tl4 20:00 Pain Scale: Adult tl4 MDM: 20:12 Patient medically screened. ec2 20:21 Data reviewed: vital signs. ED course: Patient arrives today for evaluation of altered ec2 mental status. Examination remarkable for neuro intact individual is otherwise in no acute distress with a reassuring examination. Will obtain lab work, CT imaging and further assess the patient. Currently considering UTI, metabolic disturbances, intracranial pathology.. 21:09 ED course: Metabolic profile is reassuring, CBC unremarkable, troponin within normal ec2 ranges, chest x-ray shows no acute intrathoracic process. . 21:11 ED course: EKG independently reviewed and interpreted by me, shows normal sinus rhythm, ec2 rate of 84, no acute ST segment elevations, intervals are nonconcerning.. 22:04 ED course: CT scan of the head shows no acute intracranial abnormality, CT angio of the ec2 head and neck shows no acute thrombus or occlusion. On reassessment patient remains well-appearing in no acute distress. Patient with no evidence of alteration in mental status, family reports she had an episode like this last year which similarly self resolved. . 23:01 ED course: Urine is noninfectious appearing. On reassessment patient remains ec2 well-appearing. Will discharge home and have her follow-up with her primary care doctor. No evidence to suggest intracranial mass, possible TIA however patient already on appropriate medical management and has been worked up in the past with similar symptoms. Ultimately will discharge home and have follow-up with her primary care doctor as well as neurology. Return precautions given.. 05/21 20:18 Order name: Basic Metabolic Panel; Complete Time: 21:08 2 05/21 20:18 Order name: CBC with Diff; Complete Time: 21:08 2 05/21 20:18 Order name: Troponin HS; Complete Time: 21: 05/21 20:18 Order name: UAM; Complete Time: 23: ec05/21 20:18 Order name: XRAY Chest (1 view); Complete Time: 21:08 ec2 05/21 20:18 Order name: CT Head Brain wo Cont; Complete Time: :59 ec2 05/21 20:21 Order name: CT Head Angio; Complete Time: :59 ec2 05/21 20:21 Order name: CT Neck Angio; Complete Time: 21:59 ec2 05/21 20:18 Order name: EKG; Complete Time: 20:18 ec05/21 20:18 Order name: Cardiac monitoring; Complete Time: 20: ec05/21 20:18 Order name: EKG - Nurse/Tech; Complete Time: 21:12 ec05/21 20:18 Order name: IV Saline Lock; Complete Time: : ec05/21 20:18 Order name: Labs collected and sent; Complete Time: : ec05/21 20:18 Order name: O2 Per Protocol; Complete Time: 20:28 ec2 05/21 20:18 Order name: O2 Sat Monitoring; Complete Time: : ec05/21 22:09 Order name: Cath; Complete Time: 22:39 ec2 Administered Medications: No medications were administered Disposition Summary: 05/21/23 23:07 Discharge Ordered Condition: Stable ec2 Diagnosis - Confusion ec2 Followup: ec2 - With: Private Physician - When: - Reason: Recheck today's complaints Discharge Instructions: - Discharge Summary Sheet ec2 - Confusion ec2 Forms: - Medication Reconciliation Form ec2 - Thank You Letter ec2 - Antibiotic Education ec2 - Prescription Opioid Use ec2 - Patient Portal Instructions ec2 - Leadership Thank You Letter ec2 Signatures: Dispatcher [employer] Westley Clark MD MD ec2 LogMendoza crane tl4 Corrections: (The following items were deleted from the chart) 22:02 21:49 Home Meds: metoprolol tartrate 25 mg Oral tab; tl4 tl4
--- NOTE | 2023-05-21 23:08 | ER ---
Nurse's Notes [facility] Name: Yuly Villegas Age: 82 yrs Sex: Female : 1940 Arrival Date: 05/21/2023 Time: 19:53 Bed 3 Private MD: Diagnosis: Confusion Presentation: 05/21 20:00 Chief complaint: Patient states: Pt presents with EMS for episode of altered mental tl4 status now resolved. ECF staff reported that pt had activated call light, but when they arrived pt was not making any sense. EMS reports upon their arrival pt was aao x 3. Pt denies any complaints at this time. Coronavirus screen: Vaccine status: Patient reports receiving the 2nd dose of the covid vaccine. Patient reports having had a previously documented Covid positive illness. At this time, the client does not indicate any symptoms associated with coronavirus-19. Ebola Screen: Patient negative for fever greater than or equal to 101.5 degrees Fahrenheit, and additional compatible Ebola Virus Disease symptoms Patient denies exposure to infectious person. Patient denies travel to an Ebola-affected area in the 21 days before illness onset. No symptoms or risks identified at this time. Initial Sepsis Screen: Does the patient meet any 2 criteria? No. Patient's initial sepsis screen is negative. Does the patient have a suspected source of infection? No. Patient's initial sepsis screen is negative. Risk Assessment: Do you want to hurt yourself or someone else? Patient reports no desire to harm self or others. Onset of symptoms was May 21, 2023. 20:00 Method Of Arrival: EMS: [facility] tl4 20:00 Acuity: LEOPOLDO 3 tl4 Triage Assessment: 22:04 General: Appears in no apparent distress. Behavior is calm, cooperative. Pain: Denies tl4 pain. EENT: No signs and/or symptoms were reported regarding the EENT system. Neuro: Denies weakness blurred vision dizziness, difficulty swallowing, numbness headache. Cardiovascular: No deficits noted. Denies chest pain, palpitations. Respiratory: No deficits noted. Denies cough, shortness of breath. GI: No deficits noted. No signs and/or symptoms were reported involving the gastrointestinal system. : No deficits noted. No signs and/or symptoms were reported regarding the genitourinary system. Historical: - Allergies: 21:49 Codeine; tl4 21:49 Ibuprofen; tl4 - Home Meds: 21:49 acetaminophen 325 mg oral tablet 2 tab Every 8 hours as needed [Active]; atorvastatin tl4 40 mg oral tablet 1 tab every day at bedtime [Active]; Eliquis 5 mg Oral tab 1 tab 2 times per day [Active]; albuterol sulfate 90 mcg/actuation inhalation HFA Aerosol Inhaler 2 puffs every 4 hours [Active]; Breo Ellipta 100-25 mcg/dose inhalation Blister, With Inhalation Device 1 inhalation daily [Active]; cetirizine 10 mg oral tablet 1 tab daily [Active]; dexlansoprazole 60 mg Oral CpDB 1 cap daily [Active]; glycopyrrolate 1 mg Oral tab 1 tab 2 times per day [Active]; levothyroxine 137 mcg oral tablet 1 tab daily [Active]; metoprolol succinate 50 mg oral Tablet, Extended Release 24 hr 1 tab daily [Active]; Lubricating Plus 0.5 % ophthalmic (eye) Dropperette 1 drop twice a day [Active]; Oyster Shell Calcium 500 500 mg calcium (1,250 mg) oral tablet 1 tab 2 times per day [Active]; promethazine 25 mg Oral tab 1 tab every 8 hours [Active]; sertraline 100 mg Oral tab 1 tabs twice a day [Active]; - PMHx: 21:49 Atrial fibrillation; Cerebrovascular accident; depressive disorder; DYSPHAGIA; gastric tl4 ulcer; Gastroesophageal reflux disease; Hyperlipidemia; Hypertensive disorder; Hypothyroidism; stroke; Pneumonia; Asthma; - PSHx: 21:49 Repair of inguinal hernia; Total abdominal hysterectomy; tl4 - Immunization history:: Adult Immunizations unknown. - Social history:: Smoking status: Patient denies any tobacco usage or history of. Screenin:28 [facility] ED Fall Risk Assessment (Adult) History of falling in the last 3 months, rv including since admission No falls in past 3 months (0 pts) Score/Fall Risk Level 0 - 2 = Low Risk Oriented to surroundings, Maintained a safe environment, Educated pt \T\ family on fall prevention, incl call for assistance when getting out of bed, Assessed \T\ reinforced patient's understanding of fall precautions. Abuse screen: Denies threats or abuse. Denies injuries from another. Nutritional screening: No deficits noted. Tuberculosis screening: No symptoms or risk factors identified. Assessment: 22:43 Reassessment: No changes from previously documented assessment. Patient and/or family tl4 updated on plan of care and expected duration. Pain level reassessed. Patient is alert, oriented x 3, equal unlabored respirations, skin warm/dry/pink. Patient denies pain at this time. Vital Signs: 20:00 BP 103 / 66; Pulse 87; Resp 15; Temp 98.7(O); Pulse Ox 100% on R/A; Weight 54.88 kg tl4 (M); Height 5 ft. 3 in. ; Pain 0/10; 20:00 BP 120 / 65; Pulse 82; Resp 19; Pulse Ox 100% on R/A; Pain 0/10; tl4 21:00 BP 105 / 60; Pulse 82; Resp 19; Pulse Ox 100% on R/A; tl4 22:00 BP 114 / 52; Pulse 82; Resp 20; Pulse Ox 100% on R/A; tl4 23:26 BP 108 / 54; Pulse 71; Resp 17; Temp 98; Pulse Ox 99% ; rv 20:00 Body Mass Index 21.43 (54.88 kg, 160.02 cm) tl4 20:00 Pain Scale: Adult tl4 20:00 Pain Scale: Adult tl4 ED Course: 19:58 Patient arrived in ED. wm 20:02 Westley Calderon MD is Attending Physician. ec2 20:05 Triage completed. tl4 20:06 Arm band placed on Patient placed in an exam room, on a stretcher. tl4 20:28 Jason Parker, TIFFANY is Primary Nurse. rv 20:28 Patient has correct armband on for positive identification. Client placed on continuous rv cardiac and pulse oximetry monitoring. NIBP monitoring applied. skylights assembler on. 20:28 Inserted saline lock: 20 gauge in right forearm, using aseptic technique. Blood rv collected. 20:28 No provider procedures requiring assistance completed. rv 20:46 XRAY Chest (1 view) In Process Unspecified. EDMS 21:39 CT Head Brain wo Cont In Process Unspecified. EDMS 21:39 CT Head Angio In Process Unspecified. EDMS 21:39 CT Neck Angio In Process Unspecified. EDMS 22:39 UAM Sent. tl4 22:51 Provided Education on: ED process. tl4 23:26 IV discontinued, intact, bleeding controlled, No redness/swelling at site. Pressure rv dressing applied. Administered Medications: No medications were administered Medication: 20:28 VIS not applicable for this client. rv Outcome: 23:07 Discharge ordered by . ec2 23:26 Discharged to halfway. dc instructions given to family rv 23:26 Condition: good 23:26 Discharge instructions given to family, Instructed on discharge instructions, follow up and referral plans. Demonstrated understanding of instructions, follow-up care, 23:27 Patient left the ED. rv Signatures: Dispatcher [employer] Jason Dejesus RN RN Susan Crespo Edwin, MD MD ec2 Logdarachelle, Mendoza tl4 Corrections: (The following items were deleted from the chart) 22:02 21:49 Home Meds: metoprolol tartrate 25 mg Oral tab; tl4 tl4
[2023-05-22 01:24] VITALS: BP 108/54; TEMP 98; O2SAT 99
== END ==
LOC: ER 19:53
DX: R41.0 Disorientation, unspecified (principal); I10 Essential (primary) hypertension; I48.91 Unspecified atrial fibrillation; Z79.01 Long term (current) use of anticoagulants; Z86.73 Personal history of transient ischemic attack (TIA), and cerebral infarction without residual deficits; Z88.5 Allergy status to narcotic agent; Z88.6 Allergy status to analgesic agent
CPT/HCPCS: 93005; 85025; 81001; 80048; 36415; 84484; 70450; 70496; 70498; 71045; 99284; Q9967

== ENCOUNTER 2024-03-19 10:39 | Emergency (ER) | payer OTHER, BC ==
--- OUTSIDE RECORDS SUMMARY | 2024-03-19 10:42 | XMS REPORT | Clinical Summary ---
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
[2024-03-19 11:51] LABS: SARS-CoV-2 Antigen CONTROL BLUE LINE VIS/BG OK; SARS-CoV-2 Antigen Rapid Res Negative (Negative)
[2024-03-19] MEDS ORDERED: NA CHLORIDE 0.9% 1,000 ML ONE (12:32)
[2024-03-19 12:49] LABS: Absolute Lymphocytes (CBC) 0.6 K/uL (0.7-4.9); Absolute Monocytes 0.5 K/uL (0.1-1.3); Absolute Neutrophil 5.8 K/uL (1.8-8.0); Basophils % 0.6 % (0-1.3); Eosinophils % 0.1 % (0-4.4); Hematocrit 42.5 % (36.0-45.0); Hemoglobin 13.6 g/dL (12.0-15.0); Lymphocytes % 8.9 % (15.3-44.8); MCH 30.3 pg (27.0-35.0); MCHC 31.9 g/dL (32.0-36.0); MCV 94.9 fL (80-100); MPV 8.4 fL (7.6-11.3); Monocytes % 7.5 % (3.3-12.3); Neutrophils % 82.9 % (41.7-73.7); Platelets 219 thou/uL (152-406); RBC Red Blood Cell Count 4.48 M/uL (3.86-4.86); Red Cell Distribution Width 14.1 % (12.1-15.2)
[2024-03-19 13:13] LABS: Albumin 2.7 g/dL (3.4-5.0); Albumin/Globulin Ratio 0.6 (1.1-1.8); Anion Gap 10.1 mEq/L (5.0-15.0); Bilirubin Total 0.8 mg/dL (0.2-1.0); Globulin 4.8 g/dL (2.3-3.5); Potassium 4.1 mEq/L (3.5-5.1); Protein, Total 7.5 g/dL (6.4-8.2)
--- NOTE | 2024-03-19 13:14 | RAD REPORT ---
EXAMINATION: CT ABDOMEN AND PELVIS WITH CONTRAST CLINICAL INDICATION: abd pain,n/v, poor po TECHNIQUE: CT abdomen and pelvis was performed, after the administration of IV contrast, [facility]. Axial, sagittal and coronal reconstructions were obtained. One or more of the following dose reduction techniques were used: Automated exposure control, adjustment of the mA and k V according to patient size, and iterative reconstruction. Unless otherwise specified, incidental findings do not require dedicated imaging follow-up. COMPARISON: 06/15/2022 FINDINGS: LOWER CHEST: Mild atelectasis is present in the lung bases. Small hiatal hernia. LIVER: Innumerable small masses are scattered throughout the liver parenchyma compatible with metasta tic disease. This is a new finding since the comparison study. Grossly unremarkable gallbladder. SPLEEN: Normal size. No focal lesion. PANCREAS: 2.5 cm low-density mass is seen in the pancreatic head/uncinate region with abnormal dilata tion of the pancreatic duct likely indicating pancreatic neoplasia. ADRENALS: Normal; no mass. KIDNEYS: Normal size and contour. No hydronephrosis. GASTROINTESTINAL TRACT: No evidence of free air, significant intra-abdominal free fluid, bowel obstru ction or abscess. Moderate stool is present throughout the colon. APPENDIX: Normal appendix. LYMPH NODES: No lymphadenopathy. MUSCULOSKELETAL: Moderate lumbar degenerative changes. ADDITIONAL FINDINGS: None. IMPRESSION: 2.5 cm mass in the pancreatic head/uncinate process with upstream pancreatic ductal dilatation is lik [place] malignancy. Numerous new low density lesions in the liver likely metastatic deposits.
[2024-03-19 15:04] LABS: Urine Bilirubin NEGATIVE (Negative); Urine Blood Negative (Negative); Urine Clarity Clear (Clear); Urine Color Light-Yellow (Yellow); Urine Glucose NEGATIVE (Negative); Urine Ketones TRACE (Negative); Urine Microscopic Reflex YN NO UMIC; Urine Nitrite NEGATIVE (Negative); Urine Protein NEGATIVE (Negative); Urine Urobilinogen Normal (Normal); Urine pH 5.5 (5.0-7.0)
[2024-03-19 15:25] LABS: Specific Gravity > 1.030 (1.005-1.030)
--- NOTE | 2024-03-19 15:35 | EDPHYS ---
Physician Documentation [facility] Name: Yuly Villegas Age: 83 yrs Sex: Female : 1940 Arrival Date: 03/19/2024 Time: 10:39 Bed 23 Private MD: ED Physician Westley Calderon HPI: 03/19 11:00 This 83 yrs old Female presents to ER via Unassigned with complaints of ec2 Nausea/Vomiting. 11:00 Patient arrives today for evaluation of nausea and vomiting. Patient reports that she ec2 has been experiencing nausea and vomiting for the past week, has been seen by primary care, prescribed Zofran and is having some improvement but however still having persistent symptoms. No significant abdominal pain. Having poor p.o. intake. No cough and cold symptoms. No diarrheal symptoms. Reports that she was recently diagnosed with a urinary tract infection, has been on antibiotics however this has not seemed to have changed symptoms.. Historical: - Allergies: 11:04 Codeine; ap3 11:04 Ibuprofen; ap3 - PMHx: 11:04 Asthma; Atrial fibrillation; Cerebrovascular accident; depressive disorder; DYSPHAGIA; ap3 gastric ulcer; Gastroesophageal reflux disease; Hyperlipidemia; Hypertensive disorder; Hypothyroidism; Pneumonia; stroke; - Immunization history:: Client reports receiving the 2nd dose of the Covid vaccine. - Infectious Disease History:: Denies. - Social history:: Smoking status: Patient denies any tobacco usage or history of. ROS: 11:00 Constitutional: as per hpi ec2 Exam: 11:00 Constitutional: GEN: NAD Head: atraumatic Eyes: EOMI Ears: External ears are ec2 normal. CV: regular rate LUNGS: no respiratory distress ABD: non-distended, soft, not guarding, not rigid, minimally tender SKIN: no evidence of rashes MSK: no evidence of trauma Vital Signs: 11:02 BP 107 / 77; Pulse 104; Resp 18; Temp 97.6(A); Pulse Ox 96% on R/A; Weight 45.36 kg; ap3 12:00 BP 127 / 71; Pulse 91; Resp 16; Pulse Ox 94% ; me1 13:00 BP 140 / 57; Pulse 94; Resp 18; Pulse Ox 100% ; me1 14:00 BP 133 / 77; Pulse 85; Resp 12; Pulse Ox 98% ; me1 15:00 BP 137 / 66; Pulse 86; Resp 16; Pulse Ox 95% ; me1 15:37 BP 146 / 82; Pulse 98; Resp 16; Temp 98.4; Pulse Ox 98% ; me1 MDM: 10:55 Medical Screening Exam initiated ec2 11:01 Data reviewed: vital signs, nurses notes. ED course: Patient arrives today for nausea ec2 and vomiting. Examination remarkable for abdominal findings as above. Will obtain lab work, urine studies, CT imaging.. 12:34 ED course: EKG independently reviewed and interpreted by me, shows normal sinus rhythm, ec2 rate 94, no acute ST segment elevations, intervals are nonactionable.. 13:26 ED course: CBC, metabolic profile, lipase are nonactionable. 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 Viral swabs negative. Patient updated regarding the likely cancer diagnosis.. 03/19 11:00 Order name: CBC with Diff; Complete Time: 13:13 ec2 03/19 11:00 Order name: CMP; Complete Time: 13:20 ec2 03/19 11:00 Order name: Lipase; Complete Time: 13:20 ec2 03/19 11:00 Order name: Urinalysis w/ reflexes; Complete Time: 15:25 ec2 03/19 11:01 Order name: Influenza Screen (a \T\ B); Complete Time: 13:13 ec2 03/19 11:01 Order name: SARS RAPID; Complete Time: 12:03 ec2 03/19 13:10 Order name: CREATININE WHOLE BLOOD; Complete Time: 13:13 EDMS 03/19 11:00 Order name: CT Abd/Pelvis - IV Contrast Only; Complete Time: 13:20 ec2 03/19 11:00 Order name: IV Saline Lock; Complete Time: 12:31 ec2 03/19 11:00 Order name: Labs collected and sent; Complete Time: 12:00 ec2 03/19 11:00 Order name: Cath; Complete Time: 14:47 ec2 03/19 11:00 Order name: EKG - Nurse/Tech; Complete Time: 12:27 ec2 03/19 11:47 Order name: Labs - recollect needed: recollect green and lavender top; Complete Time: bd 12:27 Administered Medications: 12:34 Drug: NS 0.9% IV 1000 ml IV at 1 bolus Per protocol; to be given as a bolus over 60 me1 minutes Route: IV; Rate: 1 bolus; Site: right upper arm; 14:19 Follow up: Response: No adverse reaction; IV Status: Completed infusion; IV Intake: me1 1000ml Disposition Summary: 03/19/24 15:35 Discharge Ordered Condition: Stable ec2 Diagnosis - Nausea with vomiting, unspecified ec2 - Pancreatic Mass ec2 Followup: ec2 - With: Private Physician - When: - Reason: Re-evaluation by your physician Discharge Instructions: - Discharge Summary Sheet ec2 - Nausea and Vomiting, Adult ec2 Forms: - Medication Reconciliation Form ec2 - Antibiotic Education ec2 - Prescription Opioid Use ec2 - Patient Portal Instructions ec2 - Leadership Thank You Letter ec2 Signatures: Dispatcher [employer] EDKY Heydi Garland Amanda RN RN ap3 Naima Wright RN RN me1 Westley Calderon MD MD ec2 Corrections: (The following items were deleted from the chart) 11:00 11:00 CBC+H.LAB.BRZ ordered. EDKY EDKY 11:00 11:00 COMPREHENSIVE METABOLIC PANEL+C.LAB.BRZ ordered. EDKY EDKY 11:00 11:00 LIPASE+C.LAB.BRZ ordered. EDKY EDKY 11:00 11:00 Urinalysis+U.LAB.BRZ ordered. EDKY EDKY 11:00 11:00 Abdomen Pelvis W Con+CT.RAD.BRZ ordered. EDKY EDKY 11:01 11:00 Constitutional: GEN: NAD Head: atraumatic Eyes: EOMI Ears: External ears are ec2 normal. CV: regular rate LUNGS: no respiratory distress ABD: non-distended, soft, not guarding, not rigid SKIN: no evidence of rashes MSK: no evidence of trauma ec2
--- NOTE | 2024-03-19 15:35 | ER ---
Nurse's Notes [facility] Name: Yuly Villegas Age: 83 yrs Sex: Female : 1940 Arrival Date: 03/19/2024 Time: 10:39 Bed 23 Private MD: Diagnosis: Nausea with vomiting, unspecified;Pancreatic Mass Presentation: 03/19 11:02 Chief complaint: Patient states: she has been having nausea for approx 3 weeks. patient ap3 states she started zofran on 03/17/24 but is continuing to have nausea. Coronavirus screen: At this time, the client does not indicate any symptoms associated with coronavirus-19. Ebola Screen: No symptoms or risks identified at this time. Initial Sepsis Screen: Does the patient meet any 2 criteria? RR > 20 per min. Does the patient have a suspected source of infection? No. Patient's initial sepsis screen is negative. Risk Assessment: Do you want to hurt yourself or someone else? Patient reports no desire to harm self or others. Onset of symptoms is unknown. 11:02 Method Of Arrival: EMS: [facility] ap3 11:02 Acuity: LEPOOLDO 3 ap3 11:05 Care prior to arrival: Medication(s) given: zofran IM. ap3 Triage Assessment: 11:05 General: Appears in no apparent distress. Behavior is calm, cooperative, appropriate ap3 for age. Pain: Denies pain. Neuro: Level of Consciousness is awake, alert, obeys commands, Oriented to person, place, time, situation. Cardiovascular: Patient's skin is warm and dry. Respiratory: Airway is patent Respiratory effort is even, unlabored, Respiratory pattern is regular, symmetrical. GI: Reports nausea, vomiting. Historical: - Allergies: 11:04 Codeine; ap3 11:04 Ibuprofen; ap3 - PMHx: 11:04 Asthma; Atrial fibrillation; Cerebrovascular accident; depressive disorder; DYSPHAGIA; ap3 gastric ulcer; Gastroesophageal reflux disease; Hyperlipidemia; Hypertensive disorder; Hypothyroidism; Pneumonia; stroke; - Immunization history:: Client reports receiving the 2nd dose of the Covid vaccine. - Infectious Disease History:: Denies. - Social history:: Smoking status: Patient denies any tobacco usage or history of. Screenin:05 Abuse screen: Denies threats or abuse. Nutritional screening: No deficits noted. ap3 Tuberculosis screening: No symptoms or risk factors identified. 12:27 [facility] ED Fall Risk Assessment (Adult) History of falling in the last 3 months, me1 including since admission No falls in past 3 months (0 pts) Confusion or Disorientation No (0 pts) Intoxicated or Sedated No (0 pts) Impaired Gait Yes (1 pt) Mobility Assist Device Used Yes (1 pt) Altered Elimination No (0 pt) Score/Fall Risk Level 3 or more points = High Risk Maintained a safe environment, Hourly rounding (assess needs \T\ fall precautionary measures) done, Used ambulatory aids as needed (educated on \T\ assisted with). Assessment: 12:27 General: Appears ill, well groomed, well developed, well nourished, Behavior is calm, me1 cooperative, appropriate for age, Reports she has been having nausea for approx 3 weeks. patient states she started zofran on 03/17/24 but is continuing to have nausea. Pain: Denies pain. Neuro: Level of Consciousness is awake, alert, obeys commands, Oriented to person, place, time, situation, Appropriate for age. Cardiovascular: Patient's skin is warm and dry. Respiratory: Airway is patent Respiratory effort is even, unlabored, Respiratory pattern is regular, symmetrical. GI: Reports nausea, since 3 weeks. GI: Abdomen is non-distended, Bowel sounds present X 4 quads. : No signs and/or symptoms were reported regarding the genitourinary system. EENT: No signs and/or symptoms were reported regarding the EENT system. Derm: Skin is intact, is healthy with good turgor, Skin is pink, warm \T\ dry. Musculoskeletal: No signs and/or symptoms reported regarding the musculoskeletal system. Vital Signs: 11:02 BP 107 / 77; Pulse 104; Resp 18; Temp 97.6(A); Pulse Ox 96% on R/A; Weight 45.36 kg; ap3 12:00 BP 127 / 71; Pulse 91; Resp 16; Pulse Ox 94% ; me1 13:00 BP 140 / 57; Pulse 94; Resp 18; Pulse Ox 100% ; me1 14:00 BP 133 / 77; Pulse 85; Resp 12; Pulse Ox 98% ; me1 15:00 BP 137 / 66; Pulse 86; Resp 16; Pulse Ox 95% ; me1 15:37 BP 146 / 82; Pulse 98; Resp 16; Temp 98.4; Pulse Ox 98% ; me1 ED Course: 10:46 Patient arrived in ED. ap3 10:48 Westley Calderon MD is Attending Physician. ec2 11:04 Triage completed. ap3 11:05 Arm band placed on right wrist. ap3 11:06 Patient has correct armband on for positive identification. Bed in low position. Call ap3 light in reach. Side rails up X2. Provided Education on: call light education. Client placed on continuous cardiac and pulse oximetry monitoring. NIBP monitoring applied. winch runner on. Pulse ox on. NIBP on. 11:30 Missed attempt(s): 22 gauge Bleeding controlled, band aid applied, catheter tip intact. ty 11:42 Missed attempt(s): 22 gauge Bleeding controlled, band aid applied, catheter tip intact. ty 12:00 CBC with Diff Sent. ty 12:00 CMP Sent. ty 12:00 Lipase Sent. ty 12:04 Missed attempt(s): 24 gauge in left hand. Bleeding controlled, band aid applied, ap3 catheter tip intact. 12:04 Missed attempt(s): 24 gauge in right hand. Bleeding controlled, band aid applied, ap3 catheter tip intact. 12:27 Naima Wright, TIFFANY is Primary Nurse. me1 12:27 No provider procedures requiring assistance completed. Initial lab(s) drawn, by ED me1 staff, sent to lab. Inserted saline lock: 22 gauge in right upper arm, using aseptic technique. Blood collected. Flushed with 10 mL NS. 13:04 CT Abd/Pelvis - IV Contrast Only In Process Unspecified. EDMS 14:46 Urinalysis w/ reflexes Sent. me1 14:47 Urine collected: clean catch specimen, cloudy. me1 15:52 IV discontinued, intact, bleeding controlled, No redness/swelling at site. Pressure me1 dressing applied. Administered Medications: 12:34 Drug: NS 0.9% IV 1000 ml IV at 1 bolus Per protocol; to be given as a bolus over 60 me1 minutes Route: IV; Rate: 1 bolus; Site: right upper arm; 14:19 Follow up: Response: No adverse reaction; IV Status: Completed infusion; IV Intake: me1 1000ml Medication: 12:27 VIS not applicable for this client. me1 Intake: 14:19 IV: 1000ml; Total: 1000ml. me1 Outcome: 15:35 Discharge ordered by . ec2 15:52 Discharged to or1 16:08 Discharged to home via wheelchair, with family, me1 16:08 Condition: stable 16:08 Discharge instructions given to 16:08 Discharge instructions given to patient, family, Instructed on discharge instructions, follow up and referral plans. Demonstrated understanding of instructions, follow-up care, 16:09 Patient left the ED. me1 Signatures: Dispatcher [employer] Anna Bolden RN RN ap3 Naima Wright RN RN me1 Westley Calderon MD MD ec2 Tahir Garcia Corrections: (The following items were deleted from the chart) 12:05 12:04 Missed attempt(s): 24 gauge in left hand. ap3 ap3 12:27 11:02 Chief complaint: Patient states: she has been having nausea for approx 3 weeks. me1 patient states she started zofran on 03/17/24 but is continuing to have nausea. ap3 14:10 13:00 BP 140 / 58; Pulse 94bpm; Resp 17bpm; Pulse Ox 97%; me1 me1
[2024-03-19 16:38] VITALS: BP 146/82; TEMP 98.4; O2SAT 98
== END 2024-03-19 16:09 | disposition home or self-care (01) ==
LOC: ER 10:39
DX: R11.2 Nausea with vomiting, unspecified (principal); K86.9 Disease of pancreas, unspecified; I10 Essential (primary) hypertension; E78.5 Hyperlipidemia, unspecified
CPT/HCPCS: 85025; 36415; 82565; 81003; 83690; 80053; 87804 ×2; 74177; 87811; Q9967; J7030